=== PATIENT | male | born 1950 | race Caucasian/White ===

== ENCOUNTER → 2016-06-23 | Outpatient (CLI) | payer BC ==
[~2016-06-23] MED LIST: ATV1 PO; CYCLOBENZAPRINE TD; GLC/500 PO; GLC500 PO; LIDO1PAD2 EX; LISI-725 PO; LRS20 PO; MELO7.5T5 PO; NRN600 PO; OXYC1TAB3 PO; OXYM1TAB42 PO; Opana ER PO; lidocaine patches
[2016-06-23 11:34] LABS: ESTIMATED AVERAGE GLUCOSE 140 mg/dl; HA1C FLAG Normal (Normal)
[2016-06-23 11:42] LABS: ALT/SGPT 28 U/L (12-78); BLOOD UREA NITROGEN 8 mg/dl (7-18); BUN/CREATININE RATIO 9.1 (10-20); CALCIUM 8.3 mg/dl (8.5-10.1); CARBON DIOXIDE 32 mmol/L (21-32); CHLORIDE 105 mmol/L (98-107); GLUCOSE 116 mg/dl (70-99); POTASSIUM 4.4 mmol/L (3.5-5.1); SODIUM 140 mmol/L (136-145)
[2016-06-23 11:45] LABS: CHOLESTEROL 145 mg/dl (0-200); CHOLESTEROL/HDL RATIO 4.8; HDL CHOLESTEROL 30 mg/dl; LDL CHOLESTEROL CALCULATED 93 mg/dl; TRIGLYCERIDES 108 mg/dl (0-150); VERY LOW DENSITY LIPOPROT CALC 22 mg/dl
== END | disposition home or self-care (01) ==
LOC: C.LABBC 07:46
PROVIDERS: ATTEND Family Medicine
DX: I10 Essential (primary) hypertension (principal); E11.9 Type 2 diabetes mellitus without complications

== ENCOUNTER → 2016-09-27 | Outpatient (CLI) | payer BC | END | disposition home or self-care (01) | LOC: C.LABBC 07:13 | PROVIDERS: ATTEND Family Medicine | DX: Z80.42 Family history of malignant neoplasm of prostate (principal) ==

== ENCOUNTER → 2016-11-01 | Outpatient (CLI) | payer BC ==
--- NOTE | 2016-11-01 07:59 | DIAGNOSTIC IMAGING REPORT ---
ABDOMEN FOR HERNIA HISTORY: 66 years-old Male R10.9 Right sided abdominal pain COMPARISON: None available TECHNIQUE: Multiple real-time sonographic images of the abdominal wall right angle region were obtained assessing grayscale appearance. FINDINGS/IMPRESSION: Within the area of concern within the right inguinal region there is a fat filled reducible inguinal hernia noted which does not contain loops of bowel at this time. The above report was generated using voice recognition software. It may contain grammatical, syntax or spelling errors. Electronically signed by: Hai Pickett M.D. 11/01/2016 7:58 AM Dictated Date/Time: 11/01/2016 7:56 AM
== END | disposition home or self-care (01) ==
LOC: C.ULTR 06:53
PROVIDERS: ATTEND Family Medicine
DX: R10.9 Unspecified abdominal pain (principal)

== ENCOUNTER 2016-11-24 06:50 | Day surgery (SDC) | payer BC ==
[2016-11-17 09:29] VITALS: BMI 25.0
--- NOTE | 2016-11-17 10:11 | PAT Medication Instructions ---
Service Date Nov 17, 2016. Current Home Medication List Baclofen (Baclofen *), 20 MG PO TID Gabapentin (Neurontin *), 600 MG PO QID Lidocaine (Lidocaine), 1 PATCH EX Q12 PRN for Pain Lisinopril (Zestril), 20 MG PO QPM Lorazepam (Ativan *), 1 MG PO TID PRN Meloxicam (Mobic), 15 MG PO DAILY PRN for Pain Metformin Hcl (Glucophage), 500 MG PO BID Oxycodone Ir (Roxicodone Ir), 1-2 TABLETS PO Q4HR PRN Oxymorphone Hcl (Oxymorphone Hydrochloride), 1 TAB PO BID PRN for Pain Medication Instructions For Your Scheduled Surgery Lidocaine (Lidocaine), 1 PATCH EX Q12 PRN for Pain (avoid placement over surgery site) - Hold the following medications 24 hours prior to surgery: Lisinopril (Zestril), 20 MG PO QPM - Hold the following medications 48 hours prior to surgery: Metformin Hcl (Glucophage), 500 MG PO BID - Hold the following medications the morning of surgery: Baclofen (Baclofen *), 20 MG PO TID Meloxicam (Mobic), 15 MG PO DAILY PRN for Pain - Take the following medications the morning of surgery with a sip of water: Oxycodone Ir (Roxicodone Ir), 1-2 TABLETS PO Q4HR PRN (okay to take up to 4 hours prior to surgery if needed) Oxymorphone Hcl (Oxymorphone Hydrochloride), 1 TAB PO BID PRN for Pain(okay to take up to 4 hours prior to surgery if needed) Lorazepam (Ativan *), 1 MG PO TID PRN (if needed) Gabapentin (Neurontin *), 600 MG PO QID - Take the following medications as scheduled the night before surgery: Lorazepam (Ativan *), 1 MG PO TID PRN (if needed) Gabapentin (Neurontin *), 600 MG PO QID Baclofen (Baclofen *), 20 MG PO TID If you have any questions please call us at [phone] or [phone] or [phone]
[2016-11-17 10:44] LABS: BASO % 0.2 %; BASO ABS # 0.01 K/uL (0-0.2); COMPLETE YES; EOS % 1.6 %; HEMATOCRIT 41.4 % (42-52); IG% 0.9 %; LYMPH % 21.4 %; LYMPH ABS # 1.17 K/uL (1.2-3.4); MEAN CELL VOLUME 88.8 fL (80-100); MEAN CORPUSCULAR HEMOGLOBIN 30.5 pg (25-34); MEAN CORPUSCULAR HGB CONC 34.3 g/dl (32-36); MEAN PLATELET VOLUME 10.1 fL (7.4-10.4); MONO % 9.2 %; NEUT % 66.7 %; PLATELET COUNT 153 K/uL (130-400); RED BLOOD COUNT 4.66 M/uL (4.7-6.1); WHITE BLOOD COUNT 5.46 K/uL (4.8-10.8)
[2016-11-17 12:52] LABS: BUN/CREATININE RATIO 6.1 (10-20); CALCIUM 8.8 mg/dl (8.5-10.1); CREATININE 0.88 mg/dl (0.60-1.40)
[~2016-11-24] VITALS: Ht 180.3 cm; Wt 84.2 kg
[~2016-11-24 06:50] MED LIST changes: +CEFAZOLIN 2000 MG/60 ML D5W IV SCH; -CYCLOBENZAPRINE TD; -GLC500 PO; +HEPARIN SOD 5000 UNIT/0.5 ML CARP SQ SCH; +LACTATED RINGER'S 1000ML 1,000 ML IV SCH; -Opana ER PO; -lidocaine patches
[2016-11-24 07:36] VITALS: BP 132/83; PULSE 63; TEMP 36.7; O2SAT 97; Ht 180.3 cm; Wt 84.2 kg
[2016-11-24] MEDS ORDERED: FENTANYL CITRATE INJ 50 MCG/1 ML 2 ML VIAL ONE (07:49)
[2016-11-24] MEDS ORDERED: MIDAZOLAM HCL 1 MG/ML 2ML VIAL ONE ×2 (07:50)
--- NOTE | 2016-11-24 08:13 | History & Physical Bridge Note ---
H&P Re-Evaluation Bridge Note: I have examined the patient, reviewed the History & Physical and in the interval since the performance of the History & Physical I have noted the following changes of clinical significance: No changes noted
[2016-11-24] MEDS ORDERED: BUPIVACAINE/EPINEPHRINE 0.5% MPF 1:200,000 30 ML VIAL ONE (08:22)
[2016-11-24] MEDS ORDERED: ATROPINE SULFATE 0.1 MG/ML 5ML SYR IV PRN (08:30)
[2016-11-24] MEDS ORDERED: HYDROmorphone INJ 2 MG/ML SYR/VIAL IV PRN (08:30)
[2016-11-24] MEDS ORDERED: ONDANSETRON INJ 2 MG/ML 2 ML VIAL IV PRN ×2 (08:30→09:45)
[2016-11-24] MEDS ORDERED: PHENYLEPHRINE 100MCG/ML 5ML SYR IV PRN (08:30)
[2016-11-24] MEDS ORDERED: EpHEDrine SULFATE INJ 50 MG/ML AMP IV PRN (08:30)
[2016-11-24] MEDS ORDERED: NEOSTIGMINE METHYLSULFATE 5 MG/5 ML SYR ONE (09:29)
[2016-11-24] MEDS ORDERED: GLYCOPYRROLATE INJ 0.2 MG/ML VIAL ONE (09:29)
[2016-11-24] MEDS ORDERED: ONDANSETRON INJ 2 MG/ML 2 ML VIAL ONE (09:29)
[2016-11-24] MEDS ORDERED: EpHEDrine SULFATE 50MG/5ML SYR ONE (09:29)
[2016-11-24] MEDS ORDERED: PROPOFOL IV EMULSION 10 MG/ML 20 ML VIAL IV ONE (09:30)
[2016-11-24] MEDS ORDERED: LACTATED RINGER'S 1000ML 1,000 ML IV SCH (09:36)
--- NOTE | 2016-11-24 09:38 | Discharge Instructions ---
Discharge Instructions Date of Service Nov 24, 2016. Visit Reason for Visit: Right Groin Hernia Discharge Discharge Diagnosis / Problem: repair right inguinal hernia Discharge Goals Goal(s): Decrease discomfort Activity Recommendations Activity Limitations: as noted below Lifting Limitations: no more than 10 pounds Shower/Bathe: no limitations (ok to shower) Driving or Machine Use: resume 3 days after discharge Anesthesia . Post Anesthesia Instructions: If you have had General Anesthesia or IV Sedation: * Do not drive today. * Resume driving when surgeon permits. * Do not make important decisions or sign legal documents today. * Call surgeon for: 1. Temperature elevations greater than 101 degrees F. 2. Uncontrollable pain. 3. Excessive bleeding. 4. Persistent nausea and vomiting. 5. Medication intolerance (nausea, vomiting or rash). * For nausea and vomiting use only clear liquids such as: tea, soda, bouillon until nausea subsides, then gradually increase diet as tolerated. * If you have any concerns or questions, call your surgeon's office. If physician is unavailable and it is an emergency, call 911 or go to the nearest emergency room. . Instructions / Follow-Up Instructions / Follow-Up Dr. Boswell in 1-2 weeks as planned, call [phone] for any questions Diet Recommendations Recommended Home Diet: no limitations Procedures Procedures Performed: Open Right Inguinal Hernia Repair with Mesh Pending Studies Studies pending at discharge: no Medical Emergencies . Who to Call and When: Medical Emergencies: If at any time you feel your situation is an emergency, please call 911 immediately. . Non-Emergent Contact Non-Emergency issues call your: Surgeon Call Non-Emergent contact if: you have a fever, temperature is above 101.5, your pain is not controlled, wound has increased redness, you have any medication questions . . "Provider Documentation" section prepared by Ronan Hermosillo. .
[2016-11-24] MEDS ORDERED: OXYCODONE/ACETAMINOPHEN 5-325 TAB PO PRN (09:45)
[2016-11-24] MEDS ORDERED: MoRPHine SULFATE 4 MG/ML 1 ML CARP\\VIAL IV PRN (09:45)
--- NOTE | 2016-11-24 09:51 | [facility] Operative Report ---
Operative Report Operative Date Nov 24, 2016. Pre-Operative Diagnosis Right Inguinal Hernia Post-Operative Diagnosis direct inguinal hernia Procedure(s) Performed Open Right Inguinal Hernia Repair with Mesh Surgeon Dr Boswell Hand Glass Cutter Surgeon(s) Ronan Hermosillo PA-C Estimated Blood Loss 5ML Findings large direct inguinal hernia Specimens NONE Anesthesia general Complication(s) None Disposition Recovery Room / PACU Description of Procedure After informed consent was obtained the patient was taken the operating suite placed in supine position. After successful placement of a laryngealmask airway the right lower groin was shaved and sterilely prepped and draped in usual fashion. An inguinal incision was made with 10 blade scalpel and carried down through the soft tissue using electrocautery. The external oblique aponeurosis was identified and skeletonized. A fresh blade was used to make an incision in it and Metzenbaum scissors to extend this through the external ring as well as for several centimeters proximally. Once in the inguinal canal we used primarily blunt dissection to delineate the cord and cord structures. We gently grabbed the cord with a Moses clamp and a blunt finger was used to undermine the cord structures and gently lift them off the pubic bone. A Tiffanie drain was placed around them. As soonas we did this we noticed a moderate size direct inguinal hernia. We did explore the cord itself and there was no evidence of any indirect hernia. The direct hernia was easily reduced. We used a piece of polypropylene keyhole mesh as an onlay. We secured it distally to Justice's ligament laterally along the shelving portion of Poupart ligament and medially along the midline musculature. The "arms" of the mesh were wrapped around behind the cord and cord structures and secured underlying muscle. We used 0 Ethibond for all the suturing. The mesh laid nice and tension free. It was flat and did not appear to impinge on the cord structures. We thoroughly irrigated the wound. I used Marcaine to inject around the edges of the mesh for postoperative analgesia. There was adequate hemostasis at the end of the procedure. We closed the external oblique aponeurosis with 2-0 Vicryl running fashion. Soft tissue was irrigated and closed using 3-0 Vicryl and 4-0 Monocryl for the skin. Some additional Marcaine was injected around the incision itself and glue used as a dressing. The patient was awaken extubated and transferred recovery in stable condition I attest to the content of the Intraoperative Record and any orders documented therein. Any exceptions are noted below.
[2016-11-24] MEDS ORDERED: HYDROmorphone INJ 1 MG/ML SYR ONE (10:10)
[2016-11-24 10:45] VITALS: BP 151/83; PULSE 69; TEMP 36.5; O2SAT 98
[2016-11-24 11:25] VITALS: BP 131/82; PULSE 79; O2SAT 99
[2016-11-24] MEDS ORDERED: OXYCODONE/ACETAMINOPHEN 5-325 TAB ONE (11:40)
--- NOTE | 2016-11-24 11:43 | Anesthesiology Progress Note ---
Anesthesia Post Op Note Date & Time Nov 24, 2016 at 11:42 Vital Signs Pain Intensity: 3 Vital Signs Past 12 Hours Date Time Temp Pulse Resp B/P (MAP) Pulse Ox O2 Delivery O2 Flow Rate FiO2 11/24/16 11:25 79 16 131/82 99 Oxymask 11/24/16 10:45 36.5 69 16 151/83 98 Oxymask 11/24/16 10:38 68 14 98 11/24/16 10:38 68 14 11/24/16 10:36 149/85 11/24/16 10:33 67 12 99 11/24/16 10:33 67 12 11/24/16 10:31 156/86 11/24/16 10:28 69 19 11/24/16 10:28 69 19 99 11/24/16 10:27 36.2 11/24/16 10:26 157/90 11/24/16 10:23 69 17 11/24/16 10:23 69 17 99 11/24/16 10:21 156/89 11/24/16 10:18 69 13 11/24/16 10:18 66 13 100 11/24/16 10:17 69 15 11/24/16 10:17 69 15 99 11/24/16 10:16 153/88 11/24/16 10:12 69 16 98 11/24/16 10:12 69 16 11/24/16 10:11 158/85 11/24/16 10:07 69 16 11/24/16 10:07 69 16 100 11/24/16 10:06 163/92 11/24/16 10:02 70 14 11/24/16 10:02 69 14 100 11/24/16 10:01 161/88 11/24/16 09:57 72 16 100 11/24/16 09:57 71 16 11/24/16 09:56 166/93 11/24/16 09:55 73 21 11/24/16 09:55 73 21 100 11/24/16 09:51 168/100 11/24/16 09:50 73 15 100 11/24/16 09:50 74 15 11/24/16 09:46 173/91 11/24/16 09:45 78 19 100 11/24/16 09:45 78 19 11/24/16 09:45 36.0 79 12 173/91 100 Oxymask 10 11/24/16 07:36 36.7 63 18 132/83 (99) 97 Room Air Notes Mental Status: alert / awake / arousable, participated in evaluation Pt Amnestic to Procedure: Yes Nausea / Vomiting: adequately controlled Pain: adequately controlled Airway Patency, RR, SpO2: stable & adequate BP & HR: stable & adequate Hydration State: stable & adequate Anesthetic Complications: no major complications apparent
[2016-11-24 11:45] VITALS: BP 167/80; PULSE 77; TEMP 36.4; O2SAT 99
== END 2016-11-24 12:10 | disposition home or self-care (01) ==
LOC: C.ACU 06:50
PROVIDERS: ATTEND Surgery
DX: K40.90 Unilateral inguinal hernia, without obstruction or gangrene, not specified as recurrent (principal); F41.9 Anxiety disorder, unspecified; Z93.3 Colostomy status; I10 Essential (primary) hypertension; C18.9 Malignant neoplasm of colon, unspecified; M19.90 Unspecified osteoarthritis, unspecified site; Z72.0 Tobacco use; E11.9 Type 2 diabetes mellitus without complications; Z81.8 Family history of other mental and behavioral disorders; Z83.3 Family history of diabetes mellitus; Z82.49 Family history of ischemic heart disease and other diseases of the circulatory system; Z87.891 Personal history of nicotine dependence; Z79.899 Other long term (current) drug therapy; Z79.84 Long term (current) use of oral hypoglycemic drugs

== ENCOUNTER → 2017-02-01 | Outpatient (CLI) | payer BC ==
[~2017-02-01] MED LIST changes: -CEFAZOLIN 2000 MG/60 ML D5W IV SCH; -HEPARIN SOD 5000 UNIT/0.5 ML CARP SQ SCH; -LACTATED RINGER'S 1000ML 1,000 ML IV SCH
[2017-02-01 11:20] LABS: ESTIMATED AVERAGE GLUCOSE 148 mg/dl; HA1C FLAG Normal (Normal)
[2017-02-01 11:49] LABS: ALT/SGPT 25 U/L (12-78); BLOOD UREA NITROGEN 6 mg/dl (7-18); BUN/CREATININE RATIO 6.4 (10-20); CALCIUM 8.5 mg/dl (8.5-10.1); CARBON DIOXIDE 30 mmol/L (21-32); CHLORIDE 103 mmol/L (98-107); CHOLESTEROL 164 mg/dl (0-200); CHOLESTEROL/HDL RATIO 4.3; CREATININE 0.97 mg/dl (0.60-1.40); GLUCOSE 112 mg/dl (70-99); HDL CHOLESTEROL 38 mg/dl; LDL CHOLESTEROL CALCULATED 107 mg/dl; POTASSIUM 4.1 mmol/L (3.5-5.1); SODIUM 138 mmol/L (136-145); TRIGLYCERIDES 93 mg/dl (0-150); VERY LOW DENSITY LIPOPROT CALC 19 mg/dl
== END | disposition home or self-care (01) ==
LOC: C.LABBC 07:57
PROVIDERS: ATTEND Family Medicine
DX: I10 Essential (primary) hypertension (principal); E11.9 Type 2 diabetes mellitus without complications

== ENCOUNTER 2017-04-07 17:19 | Emergency (ER) | payer BC ==
[~2017-04-07] VITALS: Ht 180.3 cm; Wt 82.7 kg
[2017-04-07 17:50] VITALS: Ht 180.3 cm; Wt 82.7 kg
[2017-04-07] MEDS ORDERED: OPTIRAY 320 IV PRN (18:45)
[2017-04-07 19:03] LABS: BASO % 0.4 %; BASO ABS # 0.02 K/uL (0-0.2); EOS % 0.9 %; EOS ABS # 0.04 K/uL (0-0.5); HEMATOCRIT 37.9 % (42-52); HEMOGLOBIN 13.5 g/dL (14.0-18.0); IG# 0.05 K/uL (0.00-0.02); LYMPH % 22.3 %; LYMPH ABS # 1.01 K/uL (1.2-3.4); MEAN CELL VOLUME 87.3 fL (80-100); MEAN CORPUSCULAR HEMOGLOBIN 31.1 pg (25-34); MEAN CORPUSCULAR HGB CONC 35.6 g/dl (32-36); MONO % 7.7 %; MONO ABS # 0.35 K/uL (0.11-0.59); NEUT % 67.6 %; NEUT ABS # 3.06 K/uL (1.4-6.5); PLATELET COUNT 151 K/uL (130-400); RED CELL DISTRIBUTION WIDTH CV 12.5 % (11.5-14.5); RED CELL DISTRIBUTION WIDTH SD 40.2 fL (36.4-46.3); WHITE BLOOD COUNT 4.53 K/uL (4.8-10.8)
[2017-04-07 19:19] LABS: CALCIUM 8.7 mg/dl (8.5-10.1); CREATININE 0.9 mg/dl (0.60-1.40); POTASSIUM 3.9 mmol/L (3.5-5.1)
[2017-04-07 19:22] LABS: TOTAL PROTEIN 7.6 gm/dl (6.4-8.2)
[2017-04-07 21:33] VITALS: BP 154/85; PULSE 60; TEMP 36.8; O2SAT 95
--- NOTE | 2017-04-07 21:38 | DIAGNOSTIC IMAGING REPORT ---
LUMBAR SPINE CT CT DOSE: 379.60 mGy.cm HISTORY: Low back pain. eval for fx TECHNIQUE: Multiaxial CT images of the lumbar spine were performed and reformatted in the sagittal and coronal plane without the use of contrast. A dose lowering technique was utilized adhering to the principles of ALARA. COMPARISON: None. FINDINGS: No fracture or subluxation within the lumbar spine. The L4-S1 vertebral bodies are fused. Prior anterior fusion at L5-S1. There is a single anterior screw at L4. L4 pedicle screws have been removed. The heads of the L2 pedicle screws are removed. There residual pedicle screws at L3 which appear intact. Moderate disc space narrowing at L3-L4. Posterior decompression from L4 through S1. There are bilateral sacroiliac screws. A 1.9 cm fat-containing lesion within the L4 vertebral body. This may represent an intraosseous lipoma. Evaluation the central canal is limited due to the CT technique. However, there is no significant central canal narrowing. The paraspinal soft tissues are unremarkable. IMPRESSION: 1. No fracture or subluxation within the lumbar spine. 2. Postoperative changes as described above. Electronically signed by: Toan Springer M.D. 04/07/2017 9:37 PM Dictated Date/Time: 04/07/2017 9:31 PM
--- NOTE | 2017-04-07 21:47 | DIAGNOSTIC IMAGING REPORT ---
ABDOMEN AND PELVIS CT WITH IV AND ORAL CONTRAST CT DOSE: HISTORY: Right lower quadrant abdominal pain. TECHNIQUE: Multiaxial CT images of the abdomen and pelvis were performed following the use of intravenous and oral contrast. A dose lowering technique was utilized adhering to the principles of ALARA. COMPARISON STUDY: Chest CT 10/10/2012. FINDINGS: Stable 6 mm nodule within the right lower lobe and a stable 8 mm nodule within the left lower lobe. Given the long-term stability these are likely benign. No pneumoperitoneum. No pneumatosis. No fractures within the visualized osseous structures. Postoperative changes again noted within the lumbar spine. There is a right inguinal incision likely representing prior right inguinal hernia repair. No evidence for recurrent inguinal hernia. No hepatic or splenic masses. The gallbladder, pancreas, and adrenal glands are unremarkable. Mild calcified plaque within the normal caliber thoracic aorta. The kidneys enhance normally. No hydronephrosis. No retroperitoneal lymphadenopathy. The bladder is unremarkable. Left lower quadrant colostomy with a small fat-containing stone hernia. There are few colonic diverticula. Moderate stool within the colon. No bowel wall thickening or obstruction. Normal appendix. The distal sigmoid colon and rectum have been resected. IMPRESSION: 1. No bowel wall thickening or obstruction. 2. Normal appendix. 3. No evidence for inguinal hernia. 4. Postoperative changes as described above. 5. Stable pulmonary nodules. Therefore, these are likely benign. Electronically signed by: Toan Springer M.D. 04/07/2017 9:46 PM Dictated Date/Time: 04/07/2017 9:37 PM
--- NOTE | 2017-04-07 23:27 | EMERGENCY ROOM VISIT NOTE ---
History Report prepared by Angie: Jael Márquez Under the Supervision of: Dr. Jere Sanders M.D. First contact with patient: 18:24 Chief Complaint: ABDOMINAL PAIN Stated Complaint: POSSIBLE TORE OPEN HERNIA Nursing Triage Summary: Patient had a hernia repair last year and patient is concerned it "tore open" because he has had increased pain since this AM. History of Present Illness The patient is a 67 year old male who presents to the Emergency Room with complaints of persistent abdominal pain starting this morning. He describes the pain as sore. It started suddenly after he got out of his truck and entered his house. He has noticed there might be a bulge in his abdomen. He had hernia surgery around 5 months ago. He is concerned that the hernia repair has torn open. He had not had any pain since his surgery. He has not done any lifting as he is not allowed due to his back problems. He denies any fever, vomiting, diarrhea, or urinary symptoms. He still has his appendix. He has a history of hypertension. He has a colostomy. He had his entire colon removed 12 years ago after he had rectal cancer. Source of History: patient Onset: this morning Position: abdomen Symptom Intensity: moderate Quality: other (sore) Timing: other (persistent) Associated Symptoms: No fevers, No vomiting, No diarrhea, No urinary symptoms Review of Systems See HPI for pertinent positives & negatives. A total of 10 systems reviewed and were otherwise negative. Past Medical & Surgical Medical Problems: (1) Anxiety disorder (2) Colostomy in place (3) Diabetes mellitus (4) Gastroesophageal reflux (5) Hypertension (6) Osteoarthritis (7) Rectal cancer Surgical Problems: (1) H/O resection of rectum (2) History of lumbar fusion (3) S/P cervical spinal fusion (4) S/P tonsillectomy and adenoidectomy Family History Cancer Diabetes mellitus Heart disease Social History Smoking Status: Never Smoker Alcohol Use: none Marital Status: Occupation Status: retired Current/Historical Medications Scheduled Baclofen (Baclofen *), 20 MG PO TID Gabapentin (Neurontin *), 600 MG PO QID Lisinopril (Zestril), 20 MG PO QPM Lorazepam (Ativan *), 1 MG PO TID PRN Metformin Hcl (Glucophage), 500 MG PO BID Oxycodone Ir (Roxicodone Ir), 1-2 TABLETS PO Q4HR PRN Scheduled PRN Lidocaine (Lidocaine), 1 PATCH EX Q12 PRN for Pain Meloxicam (Mobic), 15 MG PO DAILY PRN for Pain Oxymorphone Hcl (Oxymorphone Hydrochloride), 1 TAB PO BID PRN for Pain Allergies Coded Allergies: No Known Allergies (Verified , 04/07/17) Physical Exam Vital Signs Date Time Temp Pulse Resp B/P (MAP) Pulse Ox O2 Delivery O2 Flow Rate FiO2 04/07/17 21:33 36.8 60 16 154/85 95 Room Air 04/07/17 17:50 37.0 79 16 148/84 95 Room Air Physical Exam Constitutional: Vital signs reviewed. Eyes: Pupils are equal round reactive to light. Conjunctiva are noninjected. ENT: Pharynx is clear without erythema or exudate. Mucous membranes are moist. Neck supple without meningeal signs. Respiratory: Clear to auscultation bilaterally. Breath sounds are equal bilaterally. Cardiovascular: Regular rate and rhythm. No rubs or gallops. GI: Soft, nondistended. Right groin and lower quadrant tenderness. No guarding. Colostomy in left abdomen. Bowel sounds are present. Musculoskeletal: No peripheral edema. No lower extremity tenderness. Integumentary: No cyanosis. Neurological: The patient is awake and alert. No focal deficits. Psychiatric: Normal affect. Medical Decision & Procedures ER Provider Diagnostic Interpretation: Radiology results as stated below per my review and the radiologist's interpretation: LUMBAR SPINE CT CT DOSE: 379.60 mGy.cm HISTORY: Low back pain. eval for fx TECHNIQUE: Multiaxial CT images of the lumbar spine were performed and reformatted in the sagittal and coronal plane without the use of contrast. A dose lowering technique was utilized adhering to the principles of ALARA. COMPARISON: None. FINDINGS: No fracture or subluxation within the lumbar spine. The L4-S1 vertebral bodies are fused. Prior anterior fusion at L5-S1. There is a single anterior screw at L4. L4 pedicle screws have been removed. The heads of the L2 pedicle screws are removed. There residual pedicle screws at L3 which appear intact. Moderate disc space narrowing at L3-L4. Posterior decompression from L4 through S1. There are bilateral sacroiliac screws. A 1.9 cm fat-containing lesion within the L4 vertebral body. This may represent an intraosseous lipoma. Evaluation the central canal is limited due to the CT technique. However, there is no significant central canal narrowing. The paraspinal soft tissues are unremarkable. IMPRESSION: 1. No fracture or subluxation within the lumbar spine. 2. Postoperative changes as described above. Electronically signed by: Toan Springer M.D. 04/07/2017 9:37 PM Dictated Date/Time: 04/07/2017 9:31 PM ABDOMEN AND PELVIS CT WITH IV AND ORAL CONTRAST CT DOSE: HISTORY: Right lower quadrant abdominal pain. TECHNIQUE: Multiaxial CT images of the abdomen and pelvis were performed following the use of intravenous and oral contrast. A dose lowering technique was utilized adhering to the principles of ALARA. COMPARISON STUDY: Chest CT 10/10/2012. FINDINGS: Stable 6 mm nodule within the right lower lobe and a stable 8 mm nodule within the left lower lobe. Given the long-term stability these are likely benign. No pneumoperitoneum. No pneumatosis. No fractures within the visualized osseous structures. Postoperative changes again noted within the lumbar spine. There is a right inguinal incision likely representing prior right inguinal hernia repair. No evidence for recurrent inguinal hernia. No hepatic or splenic masses. The gallbladder, pancreas, and adrenal glands are unremarkable. Mild calcified plaque within the normal caliber thoracic aorta. The kidneys enhance normally. No hydronephrosis. No retroperitoneal lymphadenopathy. The bladder is unremarkable. Left lower quadrant colostomy with a small fat-containing stone hernia. There are few colonic diverticula. Moderate stool within the colon. No bowel wall thickening or obstruction. Normal appendix. The distal sigmoid colon and rectum have been resected. IMPRESSION: 1. No bowel wall thickening or obstruction. 2. Normal appendix. 3. No evidence for inguinal hernia. 4. Postoperative changes as described above. 5. Stable pulmonary nodules. Therefore, these are likely benign. Electronically signed by: Toan Springer M.D. 04/07/2017 9:46 PM Dictated Date/Time: 04/07/2017 9:37 PM Laboratory Results 04/07/17 18:45 Red Blood Count 4.34, Mean Corpuscular Volume 87.3, Mean Corpuscular Hemoglobin 31.1, Mean Corpuscular Hemoglobin Concent 35.6, Mean Platelet Volume 10.0, Neutrophils (%) (Auto) 67.6, Lymphocytes (%) (Auto) 22.3, Monocytes (%) (Auto) 7.7, Eosinophils (%) (Auto) 0.9, Basophils (%) (Auto) 0.4, Neutrophils # (Auto) 3.06, Lymphocytes # (Auto) 1.01, Monocytes # (Auto) 0.35, Eosinophils # (Auto) 0.04, Basophils # (Auto) 0.02 04/07/17 18:45 Test 04/07/17 14:19 04/07/17 18:45 Urine Color YELLOW Urine Appearance CLEAR (CLEAR) Urine pH 6.0 (4.5-7.5) Urine Specific [place] 1.008 (1.000-1.030) Urine Protein NEG (NEG) Urine Glucose (UA) NEG (NEG) Urine Ketones NEG (NEG) Urine Occult Blood NEG (NEG) Urine Nitrite NEG (NEG) Urine Bilirubin NEG (NEG) Urine Urobilinogen NEG (NEG) Urine Leukocyte Esterase NEG (NEG) White Blood Count 4.53 K/uL (4.8-10.8) Red Blood Count 4.34 M/uL (4.7-6.1) Hemoglobin 13.5 g/dL (14.0-18.0) Hematocrit 37.9 % (42-52) Mean Corpuscular Volume 87.3 fL (80-100) Mean Corpuscular Hemoglobin 31.1 pg (25-34) Mean Corpuscular Hemoglobin Concent 35.6 g/dl (32-36) Platelet Count 151 K/uL (130-400) Mean Platelet Volume 10.0 fL (7.4-10.4) Neutrophils (%) (Auto) 67.6 % Lymphocytes (%) (Auto) 22.3 % Monocytes (%) (Auto) 7.7 % Eosinophils (%) (Auto) 0.9 % Basophils (%) (Auto) 0.4 % Neutrophils # (Auto) 3.06 K/uL (1.4-6.5) Lymphocytes # (Auto) 1.01 K/uL (1.2-3.4) Monocytes # (Auto) 0.35 K/uL (0.11-0.59) Eosinophils # (Auto) 0.04 K/uL (0-0.5) Basophils # (Auto) 0.02 K/uL (0-0.2) RDW Standard Deviation 40.2 fL (36.4-46.3) RDW Coefficient of Variation 12.5 % (11.5-14.5) Immature Granulocyte % (Auto) 1.1 % Immature Granulocyte # (Auto) 0.05 K/uL (0.00-0.02) Anion Gap 5.0 mmol/L (3-11) Est Creatinine Clear Calc Drug Dose 83.6 ml/min Estimated GFR () 101.4 Estimated GFR (Non- 87.5 BUN/Creatinine Ratio 4.9 (10-20) Calcium Level 8.7 mg/dl (8.5-10.1) Total Bilirubin 0.5 mg/dl (0.2-1) Direct Bilirubin 0.1 mg/dl (0-0.2) Aspartate Amino Transf (AST/SGOT) 17 U/L (15-37) Alanine Aminotransferase (ALT/SGPT) 23 U/L (12-78) Alkaline Phosphatase 66 U/L (45-117) Total Protein 7.6 gm/dl (6.4-8.2) Albumin 4.0 gm/dl (3.4-5.0) Lipase 100 U/L (73-393) Laboratory results as reviewed by me. ED Course 1825: The patient was evaluated in room B4B. A complete history and physical exam was performed. 2020: I reevaluated the patient. I discussed the results of his blood tests with him and let him know to talk with his doctor about his low WBC count and hyponatremia. 2158: Upon reevaluation, the patient was resting comfortably. I discussed tonight's findings with him. He verbalized agreement of the treatment plan. He was discharged home. Medical Decision This is a 67-year-old male who presents with right lower quadrant abdominal pain. Differential diagnosis includes hernia, appendicitis, mass, enteritis, kidney stone, UTI. I did perform a limited focused review of portions of the patient's old chart on the electronic medical record. The patient underwent right inguinal hernia repair by Dr. Boswell in November of last year. I did evaluate the patient as noted above. The patient is presenting with pain and tenderness in the right pelvic region. IV access was established. I did order and personally review the patient's urinalysis as described above. I did order and review the patient's blood work as noted in the electronic medical record. He has chronic leukopenia. He also has hyponatremia. I did order a CT of the abdomen and pelvis and lumbar spine. I did review the images myself as well as the radiology report as described above. No evidence of acute process was found. I did discuss the test results with the patient and his . He will follow closely with his doctor for further evaluation of the abnormal findings as well as further investigation of his pain. He was discharged in good condition. Medication Reconcilliation Current Medication List: was personally reviewed by me Blood Pressure Screening Patient's blood pressure: Elevated blood pressure Blood pressure disposition: Referred to PCP Impression Primary Impression: RLQ abdominal pain Additional Impressions: Chronic back pain Hyponatremia Leukopenia Scribe Attestation The scribe's documentation has been prepared under my direct and personally reviewed by me in its entirety. I confirm that the note above accurately reflects all work, treatment, procedures, and medical decision making performed by me. Departure Information Dispostion Home / Self-Care Referrals Andreea Sevilla MD Forms Call Back Authorization, HOME CARE DOCUMENTATION FORM, IMPORTANT VISIT INFORMATION Patient Instructions ED Abdominal Pain Unkn Cause Male, Hyponatremia Dc, My [facility] Additional Instructions You have been examined and treated today on an emergency basis only. This is not a substitute for, or an effort to provide, complete comprehensive medical care. It is impossible to recognize and treat all injuries or illnesses in a single emergency department visit. It is therefore important that you follow up closely with your physician. Call as soon as possible for an appointment. Talk to your doctor about your blood test results. Return for worsening symptoms or if you develop fever, vomiting, blood in your stool or any other concerning symptoms. Problem Qualifiers Additional Impressions: Chronic back pain Back pain location: low back pain Back pain laterality: unspecified Sciatica presence: unspecified whether sciatica present Qualified Codes: M54.5 - Low back pain; G89.29 - Other chronic pain Leukopenia Leukopenia type: unspecified Qualified Codes: D72.819 - Decreased white blood cell count, unspecified
== END 2017-04-07 22:11 | disposition home or self-care (01) ==
LOC: C.EDB 17:20
DX: R10.31 Right lower quadrant pain (principal); E87.1 Hypo-osmolality and hyponatremia; D72.819 Decreased white blood cell count, unspecified; M54.5 Low back pain; G89.29 Other chronic pain; Z93.3 Colostomy status; I10 Essential (primary) hypertension; F41.9 Anxiety disorder, unspecified; E11.9 Type 2 diabetes mellitus without complications; Z79.899 Other long term (current) drug therapy

== ENCOUNTER → 2017-10-31 | Outpatient (CLI) | payer BC ==
[~2017-10-31] MED LIST changes: +OXYC-90 PO; -OXYC1TAB3 PO
[2017-10-31 11:02] LABS: BASO % 0.3 %; BASO ABS # 0.02 K/uL (0-0.2); EOS ABS # 0.06 K/uL (0-0.5); HEMATOCRIT 42.4 % (42-52); HEMOGLOBIN 14.8 g/dL (14.0-18.0); IG# 0.03 K/uL (0.00-0.02); LYMPH % 22.9 %; MEAN CELL VOLUME 86.9 fL (80-100); MEAN CORPUSCULAR HEMOGLOBIN 30.3 pg (25-34); MEAN CORPUSCULAR HGB CONC 34.9 g/dl (32-36); MEAN PLATELET VOLUME 10.6 fL (7.4-10.4); MONO ABS # 0.55 K/uL (0.11-0.59); NEUT % 66.3 %; NEUT ABS # 4.05 K/uL (1.4-6.5); PLATELET COUNT 176 K/uL (130-400); RED CELL DISTRIBUTION WIDTH CV 12.5 % (11.5-14.5); RED CELL DISTRIBUTION WIDTH SD 39.7 fL (36.4-46.3); WHITE BLOOD COUNT 6.11 K/uL (4.8-10.8)
[2017-10-31 11:05] LABS: HEMOGLOBIN A1C 6.6 % (4.5-5.6)
[2017-10-31 11:13] LABS: ALKALINE PHOSPHATASE 77 U/L (45-117); ALT/SGPT 27 U/L (12-78); AST/SGOT 16 U/L (15-37); BLOOD UREA NITROGEN 7 mg/dl (7-18); CALCIUM 8.8 mg/dl (8.5-10.1); CARBON DIOXIDE 29 mmol/L (21-32); CREATININE 1.12 mg/dl (0.60-1.40); GLUCOSE 135 mg/dl (70-99); POTASSIUM 3.8 mmol/L (3.5-5.1); SODIUM 135 mmol/L (136-145); TOTAL PROTEIN 7.9 gm/dl (6.4-8.2)
== END | disposition home or self-care (01) ==
LOC: C.LABBC 08:49
PROVIDERS: ATTEND Orthopaedic Surgery
DX: Z01.812 Encounter for preprocedural laboratory examination (principal); M51.36 Other intervertebral disc degeneration, lumbar region; M47.896 Other spondylosis, lumbar region; I10 Essential (primary) hypertension; E11.9 Type 2 diabetes mellitus without complications

== ENCOUNTER 2020-11-03 17:59 | Inpatient (IN) ==
--- NOTE | 2020-11-03 17:58 | Emergency Department Note ---
Impression & Plan ST elevation (STEMI) myocardial infarction ED Provider Note NAME: RED VILLARREAL AGE: 70 SEX: M : 1950 ARRIVES VIA: Ambulance INFORMANT: Patient, ED PROVIDER(S): Ryan Rg MD Chief Complaint: Decreased responsiveness HPI: Patient reportedly had an episode of decreased responsiveness and when EMS arrived the patient was awake and alert. The patient did reportedly decompensate in route for the patient was not very with it and did have a lower blood pressure. EKG in route did show concern for possible inferior STEMI with high lateral depressions. Patient denies any active chest pains but he is hypotensive. No fevers or chills. The patient was pale and diaphoretic. The patient's BSG was greater than 200. 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 The patient does use smokeless tobacco. Patient has no known history of CAD. Patient denies any prior history of DVT or PE. Patient did receive a fluid bolus in route along with full dose aspirin. ROS: See HPI for pertinent positives and negatives. A total of 10 systems were rev iewed and otherwise negative. Past medical history: See below Surgical history: See below Social history: See below Physical Exam: GENERAL: Diaphoretic, pale in appearance, nasal cannula in place. Pads are on the chest. EYE EXAM: Normal conjunctiva. PERRL, no anisocoria and EOM's grossly intact w/o pain. NECK: Supple, no nuchal rigidity, no adenopathy, non-tender. No signs of meningismus. LUNGS: Clear to auscultation. Normal chest wall mechanics. HEART: NSR, no MRG. ABDOMEN: Abdomen soft, left lower quadrant ostomy in place, normo-active bowel sounds, no masses, no rebound or guarding. BACK: No CVA TTP. SKIN: No rashes and no bruising. UPPER EXTREMITIES: Upper extremities are grossly normal. LOWER EXTREMITIES: Grossly normal, no edema. Negative Homans' sign bilaterally. NEURO EXAM: A&O x3, cranial nerves II-XII grossly intact, normal speech, moves all 4 extremities on command w/o issue. Differential diagnoses: Cardiac ischemia, aortic dissection, pulmonary embolism, pneumothorax, pneumonia, pericarditis, myocarditis, esophageal rupture, GERD, cholecystitis, pancreatitis, musculoskeletal, as well as other pathologies. Course: Patient was seen and evaluated the bedside. Full history physical exam was performed. EKG interpreted by me Sinus tachycardia, rate of 108, inferior STEMI noted with reciprocal changes in the high lateral leads with depressions. Imaging Studies: See Below Cardiac monitoring: An order was placed for continuous cardiac monitoring. The monitor shows a rate of 65 with sinus rhythm. MDM: Patient did present with concern for decreased responsiveness hypotension and possible STEMI. Code heart alert was initiated. The patient already did receive full dose aspirin. Patient was ordered Plavix load. Patient was ordered a fluid bolus. Covid swab ordered along with blood work and chest x- ray. Patient was taken to [facility] for definitive treatment. The patient was hypotensive but had only received IV fluid at the time the patient was taken upstairs. The patient was awake alert and following commands. I did speak with the on-call hospitalist Dr. Varela and the patient was planned to be admitted to the intensive care unit post procedure. Patient's blood work did show white count of 11 with a hemoglobin of 11.3. Patient does have hyponatremia with creatinine of 1.7. The patient's troponin was 10. Critical Care: I have personally spent 37 minutes of critical care time in direct management of this patient. This includes bedside care, interpretation of diagnostic studies, and testing, discussion with consultants, patient, and family members, and other require inpatient management activities. This 37 minutes is in excess of all separately billable procedures. Past Med/Surg History Medical History (Updated 11/04/20 @ 00:05 by Ryan Rg MD) Anxiety disorder BPH with obstruction/lower urinary tract symptoms Chronic back pain DM2 (diabetes mellitus, type 2) Gastroesophageal reflux Hypertension Hyponatremia Obstructive sleep apnea Osteoarthritis Peripheral neuropathy Surgical History H/O inguinal hernia repair H/O resection of rectum History of rectal surgery Previous back surgery S/P cervical spinal fusion S/P tonsillectomy and adenoidectomy Family History Father Cardiovascular disease Cardiac disorder Prostate cancer Mother Dementia Diabetes Other Hypertension No significant family history Denies family history of Ovarian cancer Myocardial infarction Breast cancer Colorectal cancer Social History Smoking Status: Never smoker Age Started Using Tobacco: 17; Age Quit Using Tobacco: 24; packs per day: 1; Years Smoked: 7; Cigarettes Per Day: 20; Number of Years Since Quit: 46; Second Hand Exposure: No; Hx Alcohol Use: No Hx Substance Use: Yes (patient was taking meds incorrectly on accident) Last Used Substance: Just Prior to Arrival Last Used Substance Other:: family unsure of last doses Preferred Language: Chinese Communication Ability: Effective Visual Impairment: No Limitations Hearing Ability: Normal Money Counter Required: No Beliefs That Will Affect Care: None marital status: Current Living Situation: Spouse current occupational status: retired How many Children do You have: 4 Feels Safe at Home: Yes Childhood Exposure to Second-Hand Smoke: No caffeine: Yes during the past year weight has: remained stable Dental Care, Regularly: No Physical Activity Frequency: Daily Seatbelt Use: always Sunscreen Use: No Assistive Devices: Denture - Upper, Denture - Lower and Glasses Allergies Allergies Allergy/AdvReac Type Severity Reaction Status Date / Time rosuvastatin AdvReac Severe Myalgia Verified 11/03/20 18:12 Home Meds Home Medications Medication Instructions Recorded Confirmed vitamin B12 500 mcg-folic acid 400 1 tab PO DAILY 02/12/20 11/03/20 mcg tablet acetaminophen 500 mg capsule 500 mg PO Q8H PRN cap 10/12/20 11/03/20 tamsulosin 0.4 mg capsule 0.4 mg PO HS cap 10/12/20 11/03/20 lisinopril 40 mg tablet 40 mg PO QAM 11/03/20 11/03/20 Previous Rx's Medication Instructions Recorded naloxone 4 mg/actuation nasal spray 1 spray INTRANASAL Q3M #2 ea 01/15/20 gabapentin 600 mg tablet 600 mg PO .COMPLEX #450 tab 06/08/20 baclofen 20 mg tablet 20 mg PO QID 90 Days #360 tab 08/23/20 oxycodone 5 mg tablet 5 mg PO Q4H #42 tab 10/14/20 oxymorphone 30 mg tablet,extended 30 mg PO BID #14 tab 10/14/20 release,12 hr amlodipine 10 mg tablet 10 mg PO DAILY #90 tab 10/26/20 meloxicam 15 mg tablet 15 mg PO DAILY #90 tab 11/02/20 metformin 500 mg tablet 500 mg PO BID #180 tab 11/02/20 Results & Data (ED) Vital Signs Vital Signs - 24 hr 11/03/20 18:01 Temperature 37.1 C Temperature Source Oral Pulse Rate 108 H Respiratory Rate 15 Respiratory Effort / Characteristics Non-Labored Respiratory Depth Normal Respiratory Pattern Regular Blood Pressure 82/50 L Blood Pressure Mean 60 Blood Pressure Position Lying Pulse Oximetry 97 Oxygen Delivery Method Room Air Sepsis Recent Fever Within 48 Hours No Sepsis New/Unexplained Change in Mental Status N/A Sepsis Action Taken by Nursing No Action Required Home Medications Current Medication List: was personally reviewed by me Laboratory Data Attestation: I reviewed the patient's lab results. Result diagrams: 11/03/20 18:09 11/03/20 18:09 Lab Results 11/03/20 11/03/20 11/03/20 Range/Units 18:09 18:09 18:09 WBC 11.80 H (4.8-10.8) K/uL RBC 3.79 L (4.7-6.1) M/uL Hgb 11.3 L (14.0-18.0) g/dL POC Hgb (14.0-18.0) g/dl Hct 33.4 L (42-52) % POC Hct (42-52) % MCV 88.1 (80-100) fL MCH 29.8 (25-34) pg MCHC 33.8 (32-36) g/dL RDW Std Deviation 39.7 (36.4-46.3) fL RDW Coeff of Arturo 12.3 (11.5-14.5) % Plt Count 265 (130-400) K/uL MPV 9.6 (7.4-10.4) fL Immature Gran % (Auto) 0.8 % Neut % (Auto) 80.9 % Lymph % (Auto) 9.1 % [place] % (Auto) 8.9 % Eos % (Auto) 0.2 % Baso % (Auto) 0.1 % Neut # (Auto) 9.56 H (1.4-6.5) K/uL Lymph # (Auto) 1.07 L (1.2-3.4) K/uL [place] # (Auto) 1.05 H (0.11-0.59) K/uL Eos # (Auto) 0.02 (0-0.5) K/uL Baso # (Auto) 0.01 (0-0.2) K/uL Immature Gran # (Auto) 0.09 H (0.00-0.02) K/uL PT 10.4 (9.0-12.0) Seconds INR 1.0 (0.9-1.1) APTT 25.4 (21.0-31.0) Seconds PTT Ratio 1.0 Activ Coag Time Kaolin (94-140) SECONDS POC Sodium (135-144) mmol/L Sodium 129 L (136-145) mmol/L POC Potassium (3.3-5.0) mmol/L Potassium 4.9 (3.5-5.1) mmol/L POC Chloride (101-112) mmol/L Chloride 95 L (98-107) mmol/L Carbon Dioxide 23 (21-32) mmol/L POC Total CO2 (24-31) mmol/L Anion Gap 11.0 (3-11) POC Anion Gap (16-25) mmol/L POC BUN (7-18) mg/dl BUN 13 (7-18) mg/dl Creatinine 1.70 H (0.6-1.4) mg/dl POC Creatinine (0.6-1.3) mg/dl Est Cr Clr Drug Dosing 42.4 ml/min Est GFR ( Amer) 46.0 ml/min Est GFR (Non-Af Amer) 39.7 ml/min BUN/Creatinine Ratio 7.7 L (10-20) Glucose 228 H (70-99) mg/dl POC Glucose (other) (70-99) mg/dl Calcium 8.3 L (8.5-10.1) mg/dl POC Ioniz Calcium Bre (1.12-1.32) mmol/l Magnesium 1.8 (1.8-2.4) mg/dl Total Bilirubin 0.7 (0.2-1) mg/dl AST 78 H (15-37) U/L ALT 31 (12-78) U/L Alkaline Phosphatase 86 (45-117) U/L Total Creatine Kinase 359 H (39-308) U/L CK-MB (CK-2) 20.5 H (0.5-3.6) ng/ml CK/CKMB % Calc 5.7 H (0-3.0) Troponin I 10.600 H* (0-0.045) ng/ml NT-Pro-B Natriuret Pep 6190 H (0-900) pg/ml Total Protein 7.3 (6.4-8.2) gm/dl Albumin 3.4 (3.4-5.0) gm/dl Globulin 3.9 (2.5-4.0) gm/dl Albumin/Globulin Ratio 0.9 (0.9-2) Lipase 136 (73-393) U/L TSH 1.040 (0.300-4.500) uIu/ml COVID-19 Eval Order SARS-CoV-2 (PCR) (Negative) 11/03/20 11/03/20 11/03/20 Range/Units 18:10 18:10 18:14 WBC (4.8-10.8) K/uL RBC (4.7-6.1) M/uL Hgb (14.0-18.0) g/dL POC Hgb 11.6 L (14.0-18.0) g/dl Hct (42-52) % POC Hct 34 L (42-52) % MCV (80-100) fL MCH (25-34) pg MCHC (32-36) g/dL RDW Std Deviation (36.4-46.3) fL RDW Coeff of Arturo (11.5-14.5) % Plt Count (130-400) K/uL MPV (7.4-10.4) fL Immature Gran % (Auto) % Neut % (Auto) % Lymph % (Auto) % [place] % (Auto) % Eos % (Auto) % Baso % (Auto) % Neut # (Auto) (1.4-6.5) K/uL Lymph # (Auto) (1.2-3.4) K/uL [place] # (Auto) (0.11-0.59) K/uL Eos # (Auto) (0-0.5) K/uL Baso # (Auto) (0-0.2) K/uL Immature Gran # (Auto) (0.00-0.02) K/uL PT (9.0-12.0) Seconds INR (0.9-1.1) APTT (21.0-31.0) Seconds PTT Ratio Activ Coag Time Kaolin (94-140) SECONDS POC Sodium 128 L (135-144) mmol/L Sodium (136-145) mmol/L POC Potassium 4.9 (3.3-5.0) mmol/L Potassium (3.5-5.1) mmol/L POC Chloride 92 L (101-112) mmol/L Chloride (98-107) mmol/L Carbon Dioxide (21-32) mmol/L POC Total CO2 22 L (24-31) mmol/L Anion Gap (3-11) POC Anion Gap 19.0 (16-25) mmol/L POC BUN 14 (7-18) mg/dl BUN (7-18) mg/dl Creatinine (0.6-1.4) mg/dl POC Creatinine 1.7 H (0.6-1.3) mg/dl Est Cr Clr Drug Dosing ml/min Est GFR ( Amer) ml/min Est GFR (Non-Af Amer) ml/min BUN/Creatinine Ratio (10-20) Glucose (70-99) mg/dl POC Glucose (other) 236 H (70-99) mg/dl Calcium (8.5-10.1) mg/dl POC Ioniz Calcium Bre 1.09 L (1.12-1.32) mmol/l Magnesium (1.8-2.4) mg/dl Total Bilirubin (0.2-1) mg/dl AST (15-37) U/L ALT (12-78) U/L Alkaline Phosphatase (45-117) U/L Total Creatine Kinase (39-308) U/L CK-MB (CK-2) (0.5-3.6) ng/ml CK/CKMB % Calc (0-3.0) Troponin I (0-0.045) ng/ml NT-Pro-B Natriuret Pep (0-900) pg/ml Total Protein (6.4-8.2) gm/dl Albumin (3.4-5.0) gm/dl Globulin (2.5-4.0) gm/dl Albumin/Globulin Ratio (0.9-2) Lipase (73-393) U/L TSH (0.300-4.500) uIu/ml COVID-19 Eval Order Covid19 at [facility] SARS-CoV-2 (PCR) NEGATIVE (Negative) 11/03/20 11/03/20 Range/Units 18:48 19:09 WBC (4.8-10.8) K/uL RBC (4.7-6.1) M/uL Hgb (14.0-18.0) g/dL POC Hgb (14.0-18.0) g/dl Hct (42-52) % POC Hct (42-52) % MCV (80-100) fL MCH (25-34) pg MCHC (32-36) g/dL RDW Std Deviation (36.4-46.3) fL RDW Coeff of Arturo (11.5-14.5) % Plt Count (130-400) K/uL MPV (7.4-10.4) fL Immature Gran % (Auto) % Neut % (Auto) % Lymph % (Auto) % [place] % (Auto) % Eos % (Auto) % Baso % (Auto) % Neut # (Auto) (1.4-6.5) K/uL Lymph # (Auto) (1.2-3.4) K/uL [place] # (Auto) (0.11-0.59) K/uL Eos # (Auto) (0-0.5) K/uL Baso # (Auto) (0-0.2) K/uL Immature Gran # (Auto) (0.00-0.02) K/uL PT (9.0-12.0) Seconds INR (0.9-1.1) APTT (21.0-31.0) Seconds PTT Ratio Activ Coag Time Kaolin 230 H 307 H (94-140) SECONDS POC Sodium (135-144) mmol/L Sodium (136-145) mmol/L POC Potassium (3.3-5.0) mmol/L Potassium (3.5-5.1) mmol/L POC Chloride (101-112) mmol/L Chloride (98-107) mmol/L Carbon Dioxide (21-32) mmol/L POC Total CO2 (24-31) mmol/L Anion Gap (3-11) POC Anion Gap (16-25) mmol/L POC BUN (7-18) mg/dl BUN (7-18) mg/dl Creatinine (0.6-1.4) mg/dl POC Creatinine (0.6-1.3) mg/dl Est Cr Clr Drug Dosing ml/min Est GFR ( Amer) ml/min Est GFR (Non-Af Amer) ml/min BUN/Creatinine Ratio (10-20) Glucose (70-99) mg/dl POC Glucose (other) (70-99) mg/dl Calcium (8.5-10.1) mg/dl POC Ioniz Calcium Bre (1.12-1.32) mmol/l Magnesium (1.8-2.4) mg/dl Total Bilirubin (0.2-1) mg/dl AST (15-37) U/L ALT (12-78) U/L Alkaline Phosphatase (45-117) U/L Total Creatine Kinase (39-308) U/L CK-MB (CK-2) (0.5-3.6) ng/ml CK/CKMB % Calc (0-3.0) Troponin I (0-0.045) ng/ml NT-Pro-B Natriuret Pep (0-900) pg/ml Total Protein (6.4-8.2) gm/dl Albumin (3.4-5.0) gm/dl Globulin (2.5-4.0) gm/dl Albumin/Globulin Ratio (0.9-2) Lipase (73-393) U/L TSH (0.300-4.500) uIu/ml COVID-19 Eval Order SARS-CoV-2 (PCR) (Negative) Administered Medications Baclofen (Baclofen 20 Mg Tab) 20 mg PO QID JEY Stop: 12/03/20 20:59 Last Admin: 11/03/20 22:04 Dose: 20 mg Documented by: [id number] Gabapentin (Gabapentin 600 Mg Tab) 1,200 mg PO HS [facility] Stop: 12/03/20 20:59 Last Admin: 11/03/20 22:03 Dose: 1,200 mg Documented by: [id number] Sodium Chloride (Nss 1000ml) 1,000 mls @ 150 mls/hr IV .[id number] [facility] Stop: 11/04/20 02:09 Last Admin: 11/03/20 22:02 Dose: 150 mls/hr Documented by: [id number] Eptifibatide (Integrilin) 75 mg in 100 mls @ 6.84 mls/hr IV .[id number] [facility]; Protocol Stop: 11/04/20 02:00 Last Admin: 11/03/20 19:36 Dose: 1 mcg/kg/min, 6.8 mls/hr Documented by: [id number] Cosigned by: [id number] Discontinued Medications Atropine Sulfate (Atropine Sulfate 0.1 Mg/Ml 10ml Syr) Confirm Administered Dose 1 mg IV .STK-MED ONE Stop: 11/03/20 18:38 Last Admin: 11/03/20 19:21 Dose: Not Given Documented by: [id number] Clopidogrel Bisulfate (Clopidogrel Bisulfate 300 Mg Tab) 300 mg PO NOW STA Stop: 11/03/20 17:59 Last Admin: 11/03/20 19:16 Dose: 300 mg Documented by: [id number] Dopamine HCl/Dextrose (Dopamine 400mg / 250ml D5w ([facility] Use Only)) Confirm Administered Dose 400 mg .ROUTE .STK-MED ONE Stop: 11/03/20 18:21 Last Admin: 11/03/20 19:20 Dose: Not Given Documented by: [id number] Eptifibatide (Eptifibatide 2 Mg/Ml 10 Ml Vial ([facility] Use Only)) Confirm Administered Dose 20 mg IV .STK-MED ONE Stop: 11/03/20 18:51 Last Admin: 11/03/20 19:21 Dose: 7.9 ml Documented by: [id number] Eptifibatide (Eptifibatide 2 Mg/Ml 10 Ml Vial ([facility] Use Only)) Confirm Administered Dose 20 mg IV .STK-MED ONE Stop: 11/03/20 18:52 Last Admin: 11/03/20 19:21 Dose: 7.9 ml Documented by: [id number] Eptifibatide (Eptifibatide 0.75 Mg/Ml 75mg Vial ([facility] Use Only)) Confirm Administered Dose 75 mg .ROUTE .STK-MED ONE Stop: 11/03/20 18:52 Last Increment: 11/03/20 19:21 Dose: 13.7 mg Documented by: [id number] Eptifibatide (Eptifibatide 0.75 Mg/Ml 75mg Vial ([facility] Use Only)) Confirm Administered Dose 75 mg .ROUTE .STK-MED ONE Stop: 11/03/20 18:59 Last Admin: 11/03/20 19:22 Dose: Not Given Documented by: [id number] Fentanyl Citrate (Fentanyl Citrate 100 Mcg/2 Ml Vial) Confirm Administered Dose 100 mcg .ROUTE .STK-MED ONE Stop: 11/03/20 18:08 Last Increment: 11/03/20 19:17 Dose: 50 mcg Documented by: [id number] Heparin Sodium (Porcine) (Heparin (Porcine) 1000 Unit/Ml 10 Ml ([facility] Use Only)) Confirm Administered Dose 10,000 units .ROUTE .STK-MED ONE Stop: 11/03/20 18:08 Last Admin: 11/03/20 19:17 Dose: 12,000 units Documented by: [id number] Heparin Sodium (Porcine) (Heparin (Porcine) 1000 Unit/Ml 10 Ml ([facility] Use Only)) Confirm Administered Dose 10,000 units .ROUTE .STK-MED ONE Stop: 11/03/20 18:56 Last Admin: 11/03/20 19:22 Dose: Not Given Documented by: [id number] Heparin Sodium/Sodium Chloride (Heparin In Nss Infusion 1000 Unit/500 Ml (2 U/Ml) Bag) Confirm Administered Dose 3,000 units IV .STK-MED ONE Stop: 11/03/20 18:08 Last Admin: 11/03/20 19:19 Dose: 3,000 units Documented by: [id number] Sodium Chloride (Nss) 500 mls @ 999 mls/hr IV .Q31M [facility] Stop: 11/03/20 18:30 Last Admin: 11/03/20 18:10 Dose: 999 mls/hr Documented by: [id number] Midazolam HCl (Midazolam Hcl 1 Mg/Ml 2ml Vial) Confirm Administered Dose 2 mg .ROUTE .STK-MED ONE Stop: 11/03/20 18:08 Last Admin: 11/03/20 19:20 Dose: Not Given Documented by: [id number] Nicardipine HCl (Nicardipine Hcl Inj 2.5 Mg/Ml 10 Ml Amp) Confirm Administered Dose 25 mg .ROUTE .STK-MED ONE Stop: 11/03/20 18:08 Last Admin: 11/03/20 19:20 Dose: 25 mg Documented by: [id number] Nitroglycerin/Dextrose (Nitroglycerin/D5w 100mcg/Ml 20ml Syr) Confirm Administered Dose 2,000 mcg .ROUTE .STK-MED ONE Stop: 11/03/20 18:08 Last Admin: 11/03/20 19:20 Dose: 2,000 mcg Documented by: [id number] Norepinephrine Bitartrate (Norepinephrine Bitartrate 1 Mg/Ml 4 Ml Vial ([facility] Use Only)) Confirm Administered Dose 8 mg .ROUTE .STK-MED ONE Stop: 11/03/20 18:22 Last Admin: 11/03/20 19:20 Dose: 0.05 mcg Documented by: [id number] Imaging Data Radiologist's Impression: Chest X-Ray 11/03/20 17:58 XR chest 1V portable CLINICAL HISTORY: Chest pain COMPARISON STUDY: Chest radiograph August 05, 2018. FINDINGS: Lung volumes are normal. Lungs are clear. There is no pneumothorax or pleural effusion. Slight enlargement of the cardiac silhouette is noted. Mediastinal contours are normal. There is no evidence for pulmonary edema. Incidental note is made of postoperative findings within the cervical spine as w ell as the thoracolumbar spine, partially imaged on this exam. IMPRESSION: No acute cardiopulmonary findings. ACT 112: Negative or not required by law. Electronically signed by: Salvador Sim M.D. 11/03/2020 6:18 PM Discharge Plan Visit Data Chief Complaint: Heart Alert ED Provider: Ryan Rg Discharge Problem: ST elevation (STEMI) myocardial infarction Patient Disposition: Admitted As Inpatient Discharge Instructions Interventions: ED Discharge Assessment Last Done: 11/03/20 18:32
[2020-11-03] MEDS ORDERED: SODIUM CHLORIDE 0.9% 500 ML IV SCH (18:00)
[2020-11-03] MEDS ORDERED: fentaNYL citrate 100 MCG/2 ML VIAL ONE (18:07)
[2020-11-03] MEDS ORDERED: NITROGLYCERIN/D5W 100MCG/ML 20ML SYR ONE (18:07)
[2020-11-03] MEDS ORDERED: HEPARIN (PORCINE) 1000 UNIT/ML 10 ML (CATH LAB USE ONLY) ONE ×2 (18:07→18:55)
[2020-11-03] MEDS ORDERED: MIDAZOLAM HCL 1 MG/ML 2ML VIAL ONE (18:07)
[2020-11-03] MEDS ORDERED: niCARdipine HCL INJ 2.5 MG/ML 10 ML AMP ONE (18:07)
[2020-11-03] MEDS: CLOPIDOGREL BISULFATE 300 MG TAB PO STA ×2 (18:09→19:16)
--- NOTE | 2020-11-03 18:19 | XRay Report ---
XR chest 1V portable CLINICAL HISTORY: Chest pain COMPARISON STUDY: Chest radiograph August 05, 2018. FINDINGS: Lung volumes are normal. Lungs are clear. There is no pneumothorax or pleural effusion. Sli ght enlargement of the cardiac silhouette is noted. Mediastinal contours are normal. There is no evid ence for pulmonary edema. Incidental note is made of postoperative findings within the cervical spine as well as the thoracolumbar spine, partially imaged on this exam. IMPRESSION: No acute cardiopulmonary findings. ACT 112: Negative or not required by law. Electronically signed by: Salvador Sim M.D. 11/03/2020 6:18 PM
[2020-11-03] MEDS ORDERED: DOPamine 400MG / 250ML D5W (Cath Lab Use ONLY) ONE (18:20)
[2020-11-03 18:21] LABS: Basophils # (auto) 0.01 K/uL (0-0.2); Basophils % (auto) 0.1 %; Eosinophils # (auto) 0.02 K/uL (0-0.5); Eosinophils % (auto) 0.2 %; Hematocrit (blood only) 33.4 % (42-52); Hemoglobin 11.3 g/dL (14.0-18.0); Immature Granulocytes # (auto) 0.09 K/uL (0.00-0.02); Immature Granulocytes % (auto) 0.8 %; Lymphocytes # (auto) 1.07 K/uL (1.2-3.4); Lymphocytes % (auto) 9.1 %; Mean Corpuscular Hemoglobin 29.8 pg (25-34); Mean Corpuscular Hgb Conc 33.8 g/dL (32-36); Mean Corpuscular Volume 88.1 fL (80-100); Mean Platelet Volume 9.6 fL (7.4-10.4); Monocytes # (auto) 1.05 K/uL (0.11-0.59); Monocytes % (auto) 8.9 %; Neutrophils # (auto) 9.56 K/uL (1.4-6.5); Neutrophils % (auto) 80.9 %; Platelet Count 265 K/uL (130-400); RDW Coefficient of Variation 12.3 % (11.5-14.5); RDW Standard Deviation 39.7 fL (36.4-46.3); Red Blood Count 3.79 M/uL (4.7-6.1)
[2020-11-03] MEDS ORDERED: NOREPINEPHRINE BITARTRATE 1 MG/ML 4 ML VIAL (CATH LAB USE ONLY) ONE (18:21)
[2020-11-03 18:25] LABS: iSTAT Creatinine 1.7 mg/dl (0.6-1.3); iSTAT Hemoglobin 11.6 g/dl (14.0-18.0); iSTAT Ionized Calcium 1.09 mmol/l (1.12-1.32); iSTAT Potassium 4.9 mmol/L (3.3-5.0)
[2020-11-03 18:33] LABS: Partial Thromboplastin Time 25.4 Seconds (21.0-31.0); Prothrombin Time 10.4 Seconds (9.0-12.0)
[2020-11-03] MEDS ORDERED: ATROPINE SULFATE 0.1 MG/ML 10ML SYR IV ONE (18:37)
[2020-11-03 18:40] LABS: Albumin Level 3.4 gm/dl (3.4-5.0); BUN Creatinine Ratio 7.7 (10-20); Calcium 8.3 mg/dl (8.5-10.1); Creatinine Clr Calc Pharmacy 42.4 ml/min; Est GFR (Non-African American) 39.7 ml/min; Magnesium 1.8 mg/dl (1.8-2.4); Potassium 4.9 mmol/L (3.5-5.1)
[2020-11-03] MEDS ORDERED: EPTIFIBATIDE 2 MG/ML 10 ML VIAL (CATH LAB USE ONLY) IV ONE ×2 (18:50→18:51)
[2020-11-03] MEDS ORDERED: EPTIFIBATIDE 0.75 MG/ML 75MG VIAL (CATH LAB USE ONLY) ONE ×2 (18:51→18:58)
[2020-11-03 19:24] LABS: Albumin Globulin Ratio 0.9 (0.9-2); Bilirubin,Total 0.7 mg/dl (0.2-1); Creatine Kinase MB 20.5 ng/ml (0.5-3.6); Globulin 3.9 gm/dl (2.5-4.0); Thyroid Stimulating Hormone 1.04 uIu/ml (0.300-4.500); Total Protein 7.3 gm/dl (6.4-8.2); Troponin I 10.6 ng/ml (0-0.045)
--- NOTE | 2020-11-03 19:27 | Pre Anesthesia Assessment ---
Date of Service November 03, 2020 Pre Sedation Assessment Vital Signs Temp Pulse Resp BP Pulse Ox 11/03/20 18:01 98.8 F 108 H 15 82/50 L 97 Cardiovascular RRR, no murmur, no edema Respiratory normal respiratory effort, lungs clear to auscultation Pre-Sedation Airway Assessment Smoking Status: Never smoker Hx Sleep Apnea: No Hx Difficult Intubation: No Short, Thick Neck: No Thyromental Distance: > or= 3.5 Finger Breadths Oral Cavity: + WNL Mallampati Class: III ASA: ASA3 Procedure Planning Contraindications for Sedation: none Current Medications Reviewed: Yes Notes The planned sedation has been discussed with the patient. Informed Consent was obtained. I have identified the patient, determined the appropriateness of sedation and have assessed the patient immediately prior to the procedure. All medicine(s) and interventions are by my order.
--- NOTE | 2020-11-03 19:27 | Post Anesthesia Assessment ---
Date of Service November 03, 2020 Post Sedation Assessment Vital Signs Temp Pulse Resp BP Pulse Ox 11/03/20 18:01 98.8 F 108 H 15 82/50 L 97 Recovery Score Activity: Moves 4 extremities Respiration: Deep Breath/Cough Circulation: +/-20% PreAnes Value Consciousness: Fully Awake Oxygen Saturation: O2 needed for >90% Discharge Sedation Level of Care: Fast Track Phase II Post Sedation Plan On clinical assessment, the patient appears to have tolerated the sedation without complications. Patient is recovering as anticipated. Patient will continue to be monitored by nursing and may be discharged when sedation discharge criteria are met per below protocol. Upon Completions of procedure up to 15 minutes continue every 5 minute vital signs and the P.A.R. score; then discharge to a Phase I or Fast Track to Phase I I per the following guidelines: * Discharge Patient to appropriate Phase II area if PAR is 8 or greater or return to pre- procedure baseline. The post - procedure orders will be as directed. * If PAR score is less than 8 or not return to pre-procedure baseline then patient will follow Phase I monitoring till PAR is reached for Phase II. The Phase I may be done in procedure room or may call to secure a Phase I area. * If naloxone or flumazenil are used for reversal, hold in Phase I for continued monitoring from when last reversal dose was given for a minimum of 60 minutes or longer pending the nurse and/or physician discretion of patient condition before discharge to Phase II. Please call the Sedation Physician to re-evaluate and complete post-note for discharge to Phase II area. Do NOT discharge from procedure sedation or Phase 1 until post- sedation evaluation note is complete by procedure /sedation MD Sedation Discharge Instructions to be given to the patient at discharge to home.
[2020-11-03] MEDS ORDERED: EPTIFIBATIDE BOLUS/DRIP IV STA (19:28)
[2020-11-03] MEDS ORDERED: ACETAMINOPHEN 325 MG TAB PO PRN (19:28)
[2020-11-03] MEDS ORDERED: ONDANSETRON INJ 2 MG/ML 2 ML VIAL IV PRN (19:28)
[2020-11-03] MEDS ORDERED: EPTIFIBATIDE 75 MG/100 ML VIAL IV SCH (19:30)
[2020-11-03] MEDS ORDERED: SODIUM CHLORIDE 0.9% 1000ML 1,000 ML IV SCH (19:30)
[2020-11-03] MEDS ORDERED: ICU PROTOCOL FOR HYPERGLYCEMIA PRN (19:33)
[2020-11-03] MEDS ORDERED: MoRPHine SULFATE 2 MG/ML CARP IV PRN (19:46)
--- NOTE | 2020-11-03 19:47 | Cardiology Consultation ---
Date of Consultation November 03, 2020 Assessment & Plan (1) STEMI (ST elevation myocardial infarction): Presentation consistent with syncope in the setting of possible inferior IN. Recommend proceeding with emergent cardiac catheterization and likely primary PCI. No apparent contraindications to procedure. Discussed risks, benefits, alternatives of procedure with patient and they are willing to proceed. Further recommendations pending findings of coronary angiography. History of Present Illness Attending Physician: Khadar Harvey MD History of Present Illness 70-year-old man here with syncopal episode and ECG concerning for acute IN. Patient seen emergently after heart alert activated en route by EMS. No prior cardiac history. Cardiac risk factors include Type 2 diabetes on Metformin, hypertension, dyslipidemia and prior tobacco use. Other medical issues include Rectal cancer post resection with colostomy in place, obstructive sleep apnea, peripheral neuropathy, chronic back pain post multiple spine surgeries, GERD, BPH. [facility] in the setting of Dehydration/LYUBOV. Today has been in his usual state of health until this afternoon when walking to his home, appeared diaphoretic and collapsed. Awake but unresponsive per family post collapse and EMS called. On arrival ECG with borderline inferior ST elevations. In ED hypotensive to 70s to 80s. ECG again with borderline inferior ST elevations. Patient more awake and denied any chest pain, shortness of breath. Initial troponin 10.6. Allergies Allergy/AdvReac Type Severity Reaction Status Date / Time rosuvastatin AdvReac Severe Myalgia Verified 11/03/20 18:12 Home Medications Medication Instructions Recorded Confirmed Type naloxone 4 mg/actuation nasal spray 1 spray INTRANASAL Q3M #2 ea 01/15/20 11/03/20 Rx vitamin B12 500 mcg-folic acid 400 1 tab PO DAILY 02/12/20 11/03/20 History mcg tablet gabapentin 600 mg tablet 600 mg PO .COMPLEX #450 tab 06/08/20 11/03/20 Rx baclofen 20 mg tablet 20 mg PO QID 90 Days #360 tab 08/23/20 11/03/20 Rx acetaminophen 500 mg capsule 500 mg PO Q8H PRN cap 10/12/20 11/03/20 History tamsulosin 0.4 mg capsule 0.4 mg PO HS cap 10/12/20 11/03/20 History oxycodone 5 mg tablet 5 mg PO Q4H #42 tab 10/14/20 11/03/20 Rx oxymorphone 30 mg tablet,extended 30 mg PO BID #14 tab 10/14/20 11/03/20 Rx release,12 hr amlodipine 10 mg tablet 10 mg PO DAILY #90 tab 10/26/20 11/03/20 Rx meloxicam 15 mg tablet 15 mg PO DAILY #90 tab 11/02/20 11/03/20 Rx metformin 500 mg tablet 500 mg PO BID #180 tab 11/02/20 11/03/20 Rx lisinopril 40 mg tablet 40 mg PO QAM 11/03/20 11/03/20 History Patient History Medical History (Updated 11/03/20 @ 19:46 by Boom Harvey MD) Anxiety disorder BPH with obstruction/lower urinary tract symptoms Chronic back pain DM2 (diabetes mellitus, type 2) Gastroesophageal reflux Hypertension Hyponatremia Obstructive sleep apnea Osteoarthritis Peripheral neuropathy Surgical History H/O inguinal hernia repair H/O resection of rectum History of rectal surgery Previous back surgery S/P cervical spinal fusion S/P tonsillectomy and adenoidectomy Family History Father Cardiovascular disease Cardiac disorder Prostate cancer Mother Dementia Diabetes Other Hypertension No significant family history Denies family history of Ovarian cancer Myocardial infarction Breast cancer Colorectal cancer Social History Smoking Status: Never smoker Age Started Using Tobacco: 17; Age Quit Using Tobacco: 24; packs per day: 1; Years Smoked: 7; Cigarettes Per Day: 20; Number of Years Since Quit: 46; Second Hand Exposure: No; Hx Alcohol Use: No Hx Substance Use: Yes (patient was taking meds incorrectly on accident) Last Used Substance: Just Prior to Arrival Last Used Substance Other:: family unsure of last doses Preferred Language: [place] Communication Ability: Effective Visual Impairment: No Limitations Hearing Ability: Normal Conservation Worker Required: No Beliefs That Will Affect Care: None marital status: Current Living Situation: Spouse current occupational status: retired How many Children do You have: 4 Feels Safe at Home: Yes Childhood Exposure to Second-Hand Smoke: No caffeine: Yes during the past year weight has: remained stable Dental Care, Regularly: No Physical Activity Frequency: Daily Seatbelt Use: always Sunscreen Use: No Assistive Devices: Denture - Upper, Denture - Lower and Glasses Review of Systems Review of Systems: Not obtained the setting of emergent situation Physical Exam Physical Exam: General: Comfortable HEENT: Sclerae anicteric Lungs: Clear anteriorly Cardiac: Tachycardic, regular Vascular: 2+ radial Abdomen: Soft, nontender Extremities: Well perfused, no peripheral edema Neuro: Nonfocal Psych: Alert orient x3, normal affect and mood Results & Data ([facility]) Vital Signs (Past 12 Hours) Vital Signs Temp Pulse Resp BP Pulse Ox 11/03/20 18:01 98.8 F 108 H 15 82/50 L 97 PG Care Time/CCT Total # of Minutes Spent Total Time Spent with Patient: Total time spent is greater than 50% in coordination of care (as documented) at patient's floor/unit and/or counseling patient: Coding Level of Care Code 77425 Inpt Consult Level 4 Diagnoses STEMI (ST elevation myocardial infarction) I21.3
--- NOTE | 2020-11-03 20:05 | Cardiac Catheterization ---
[facility] Data: Senior Commercial Loan Officer Cardiac Status Clinical evaluation leading to the procedure CAD Presenation: STEMI Anginal Classification: CCS IV Heart Failure: No Cardiogenic Shock within 24 Hours: Yes Cardiac Arrest within 24 Hours: No Imaging Studies Past 6 Months: No Stress Studies Past 6 Months: No Diagnostic Physicians Name: Khadar Harvey MD Status: Emergency Closure Device Percutaneous Entry Location: Radial Closure Device: Radial Band Recommendations: PCI without planned CABG PCI Indication: Immediate PCI for STEMI Lesion Segment Name: Proximal RCA Culprit Artery: Yes Stenosis Prior to Rx (%): 100 Chronic Total Occlusion: No IVUS: No FFR: No Pre-Procedure LAVINIA Flow: 0 Previously Treated Lesion: No Lesion Complexity: Non-High/Non-C Lesion Length (mm): 20 Thrombus Present: Yes Bifurcation Lesion: No Guidewire Across Lesion: Stenosis Post-Procedure (%): 0 Post-Procedure LAVINIA Flow: 3 Devices(s) Deployed: Yes Yes Intraprocedure Events Significant Disection: No Perforation: No Cardiac Cath Procedure Full Procedure Date November 03, 2020 Pre-Procedure Diagnosis Pre-Procedure Diagnosis: STEMI AUC Score AUC Score: 9 Post-Procedure Diagnosis Post-Procedure Diagnosis: Severe CAD, Successful PCI and Normal Intracardiac Pressures Procedure(s) Performed Procedure(s) Performed: Coronary Angiography, Left Heart Cath, Aspiration Thrombectomy and Drug Eluting Stent Environmental Studies Department Chair Khadar Harvey MD Director [employer] Prashant Estimated Blood Loss Estimated Blood Loss: 15 Medication(s) Medication(s): Clopidogrel, Fentanyl, Integrilin, Lidocaine 1%, Nicardipine, Nitroglycerin, Norepinephrine and Versed Summary of Findings Indication: STEMI/Heart Alert Access: 6 Fr right radial artery Catheters: Remer, JR4 guide, pigtail Findings: LM -normal caliber, no significant disease LAD -medium caliber, 50% proximal, 40% mid after D2. Small distal vessel without significant disease and wraps around apex. 50% proximal D1 Ramussmall, 60% mid segment stenosis Circumflex -medium caliber, mid segment luminal irregularities. Small to medium caliber OM 2 with 60% proximal disease. Small OM 3 with 70% proximal stenosis RCA -acute 100% proximal occlusion. PDA filled faintly retrograde via [id number] collaterals LVEDP -12 -- PCI -- Antithrombotic therapy: Heparin, Integrilin, clopidogrel Procedure: RCA cannulated with JR4 guide Home Health Provider 50 wire passed across lesion into distal vessel Proximal to mid RCA lesion predilated with 2.5 compliant balloon Dilated lesion stented with 3.5 x 28 mm Xience drug-eluting stent Post stent placement no reflow secondary to distal thrombus emboli Aspiration thrombectomy performed with export catheter Given IC Integrilin, vasodilators to distal vessel through export catheter Stent post-dilated with 3.5 noncompliant balloon Additional IC vasodilators administered Regained LAVINIA-3 flow in RCA and proximal/mid PDA. Still with residual thrombus in distal RCA. Thrombus dottered with 2.0 balloon. Post procedure still with some residual thrombus in very distal PDA but ST elev ations largely resolved. LAVINIA 3 flow remainder of RCA system, stent well expanded and no apparent cardiac complications. Procedure course complicated by hypotension requiring 1 L IV fluid bolus and initiation of norepinephrine which was weaned off by completion of case. Arterial Closure: TR band Summary: 1. Inferior STEMI/100% acute on chronic proximal RCA occlusion 2. Moderate non-culprit coronary artery disease -50% proximal, 40% mid LAD. 50% small proximal D1 60% small mid ramus, 60% proximal OM2, 70% small OM 3 3. Transient cardiogenic shock/suspected RV failure 4. Normal LVEDP 5. Successful PCI of proximal to mid RCA with single drug-eluting stent (3.5 x 28 mm Xience). Recommendations: Admit to ICU for continued monitoring Additional IV fluid boluses for hypotension Continue Integrilin for 6 hours for residual distal thrombus Loaded with clopidogrel 600 mg in Senior Commercial Loan Officer Continue dual-antiplatelet therapy for at least 1 year. Trend troponins until peak, Check Echo Start beta-vaibhav, THA as BP allows Trial of low-dose statin with prior allergy Consult cardiac Rehab Hemodynamics Rest Ao:: 67/43/53 Final Ao: 118/64/85 LV: 119/12 Recommendations Recommendations: PCI without planned CABG Specimens Specimens: None Radiation Exposure (mGy) 1830 Contrast (mls) 120 Fluids (cc crystalloids) Fluids (cc crystalloids): 750 Drains Drains: None Anesthesia Moderate 4804-3814 Procedural Complication(s) None Disposition ICU I attest to the content of the Intraoperative Record and any orders documented therein. Any exceptions are noted below. NewsBreakG Card Cath Procedure Codes Cardiac Catheterization Procedure 1: Cardiovascular Cath Procedures: 23988 Coronaries and LHC (+/-LV) Moderate Sedation Procedure 1: Sedation/Anesthesia: 82630 Mod Sedation by the same physician;Init15 Min Child Age 5 & Up Procedure 2: Sedation/Anesthesia: 26756 Mod Sedation by the same physician; Ea [id number] Minutes Stenting Procedure 1: Cardiovascular Stent Procedures: 35197 Perc transluminal revascularization of acute sub/total occl, aMI PG Care Time/CCT Total # of Minutes Spent Total Time Spent with Patient: Total time spent is greater than 50% in coordination of care (as documented) at patient's floor/unit and/or counseling patient:
--- NOTE | 2020-11-03 20:12 | History & Physical Report ---
Date of Service November 03, 2020 Assessment & Plan (1) ST elevation (STEMI) myocardial infarction: Plan: 70yo male with history of HTN, HLP and DM presenting with inferior STEMI s/p cardiac catheterization with JOO x 1 to distal RCA -Admit to MICU -Trend troponin q 8 hours x 3 sets -Check 2D echo -Check HgbA1C and Lipid panel for risk stratification -ASA 81mg po daily -Plavix 75mg po daily -Atorvastatin 20mg po qAM with caution - patient with history of statin induced myopathy -Metoprolol 12.5mg po BID - titrate as tolerated (2) BPH with obstruction/lower urinary tract symptoms: Plan: Chronic -Continue Flomax 0.4mg po qHS -Monitor UOP, bladder scan as needed (3) DM2 (diabetes mellitus, type 2): Plan: Blood sugar elevated upon arrival. Last HgbA1C from 01/2020 = 6.8. Patient on Metformin outpatient. -Hold Metformin -MICU Hyperglycemia protocol -Check A1C (4) Hypertension: Plan: Patient with episode of hypotension during catheterization requiring brief treatment with pressors and IVF. Blood pressure has since improved. -Metoprolol 12.5mg po BID - increase as tolerated -Hold Amlodipine -Hold Lisinopril for now - consider restarting in AM if BP tolerates. (5) Gastroesophageal reflux: Plan: Chronic. Stable -Continue Protonix 40mg po daily Plan: F/E/N - NSS at 150mL/hr x 1 liter. LVEDP of 12 in geoscience laboratory technician, Xb=705 - patient with chronic hyponatremia with baseline Na appx 130-135, AHA/CC diet as tolerated Ppx - ASA, Plavix. On Integrillin currently Code - Full Dispo - Admit to MICU for post-cardiac catheterization care Admission and Anticipated Discharge Date Admission Date: November 03, 2020 History of Present Illness Chief Complaint: Inferior STEMI Primary Care Provider: Andreea Sevilla MD Jere Borrego is a 70yo male with history of DM, HTN presenting from home with inferior STEMI. He reports some mild chest pain several days ago but no chest pain today. He was in his usual state of health today. He was getting groceries this afternoon and states that he felt a bit "off". He became confused on the drive home and almost got lost. When he got home he stumbled and fell in his home. His states that he was minimally responsive. She helped him to a chair and dialed 911. Patient had a syncopal event witnessed by EMS. Inferior ST elevations noted on transfer. He was administered ASA 324mg en route. He arrived to [facility] as a Code Heart and was taken to the geoscience laboratory technician. He was found to have 100% proximal occlusion of the RCA as well as non-occlusive disease of LAD, Ramus, OM2 and OM3. Patient had aspiration thrombectomy and placement of JOO. He was administered IC Integrillin and vasodilators. Still with residual thrombus present in very distal portion of the PDA. He had transient cardiogenic shock requiring brief treatment with vasopressors and IVF. Blood pressure improved. He was admitted to MICU post-catheterization. Presently with no complaints. Specifically denies chest pain, tightness, dyspnea, palpitations. No additional complaints at this time. Allergies Allergy/AdvReac Type Severity Reaction Status Date / Time rosuvastatin AdvReac Severe Myalgia Verified 11/03/20 18:12 Home Medications Medication Instructions Recorded Confirmed Type naloxone 4 mg/actuation nasal spray 1 spray INTRANASAL Q3M #2 ea 01/15/20 11/03/20 Rx vitamin B12 500 mcg-folic acid 400 1 tab PO DAILY 02/12/20 11/03/20 History mcg tablet gabapentin 600 mg tablet 600 mg PO .COMPLEX #450 tab 06/08/20 11/03/20 Rx baclofen 20 mg tablet 20 mg PO QID 90 Days #360 tab 08/23/20 11/03/20 Rx acetaminophen 500 mg capsule 500 mg PO Q8H PRN cap 10/12/20 11/03/20 History tamsulosin 0.4 mg capsule 0.4 mg PO HS cap 10/12/20 11/03/20 History oxycodone 5 mg tablet 5 mg PO Q4H #42 tab 10/14/20 11/03/20 Rx oxymorphone 30 mg tablet,extended 30 mg PO BID #14 tab 10/14/20 11/03/20 Rx release,12 hr amlodipine 10 mg tablet 10 mg PO DAILY #90 tab 10/26/20 11/03/20 Rx meloxicam 15 mg tablet 15 mg PO DAILY #90 tab 11/02/20 11/03/20 Rx metformin 500 mg tablet 500 mg PO BID #180 tab 11/02/20 11/03/20 Rx lisinopril 40 mg tablet 40 mg PO QAM 11/03/20 11/03/20 History Past Med/Surg History Medical History (Updated 11/04/20 @ 00:54 by Bernarda Vraela DO) Anxiety disorder BPH with obstruction/lower urinary tract symptoms Chronic back pain DM2 (diabetes mellitus, type 2) Gastroesophageal reflux Hypertension Hyponatremia Obstructive sleep apnea Osteoarthritis Peripheral neuropathy Surgical History H/O inguinal hernia repair H/O resection of rectum History of rectal surgery Previous back surgery S/P cervical spinal fusion S/P tonsillectomy and adenoidectomy Family History Father Cardiovascular disease Cardiac disorder Prostate cancer Mother Dementia Diabetes Other Hypertension No significant family history Denies family history of Ovarian cancer Myocardial infarction Breast cancer Colorectal cancer Social History Smoking Status: Never smoker Age Started Using Tobacco: 17; Age Quit Using Tobacco: 24; packs per day: 1; Years Smoked: 7; Cigarettes Per Day: 20; Number of Years Since Quit: 46; Second Hand Exposure: No; Hx Alcohol Use: No Hx Substance Use: Yes (patient was taking meds incorrectly on accident) Last Used Substance: Just Prior to Arrival Last Used Substance Other:: family unsure of last doses Preferred Language: [place] Communication Ability: Effective Visual Impairment: No Limitations Hearing Ability: Normal 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 Required: No Beliefs That Will Affect Care: None marital status: Current Living Situation: Spouse current occupational status: retired How many Children do You have: 4 Feels Safe at Home: Yes Childhood Exposure to Second-Hand Smoke: No caffeine: Yes during the past year weight has: remained stable Dental Care, Regularly: No Physical Activity Frequency: Daily Seatbelt Use: always Sunscreen Use: No Assistive Devices: Denture - Upper, Denture - Lower and Glasses Review of Systems Review of Systems: All systems reviewed & are unremarkable except as noted in HPI & below Physical Exam Physical Exam: General: patient resting comfortably, NAD, non-toxic in appearance, AA&O x 4 Skin: warm, dry, intact, no rashes or lesions HEENT: NC/AT, PERRL, EOMI, anicteric sclera, conjunctiva without injection, external ear normal to inspection and nontender, nares patent, moist mucus membranes, dentition intact, no oropharyngeal lesions, neck supple, trachea midline, no LAD, no thyromegaly, no JVD Heart: +S1/S2, regular, no m/r/g Lungs: equal air entry bilaterally, no rales/rhonchi/wheezes Abd: +BS, soft, NT/ND, no masses/organomegaly/ascites Ext: warm, 2+ pulses in UE/LE bilaterally, no clubbing/cyanosis or edema, radial band right wrist Neuro: nonfocal, patient AA&O x 4, speech intact, no facial droop, moving all extremities on command with equal strength 5/5 Results & Data Results & Data ([facility]) Vital Signs (Past 12 Hours) Vital Signs Temp Pulse Resp BP Pulse Ox 11/03/20 18:01 37.1 C 108 H 15 82/50 L 97 Laboratory Results Laboratory Results WBC 11.80 K/uL (4.8-10.8) H 11/03/20 18:09 RBC 3.79 M/uL (4.7-6.1) L 11/03/20 18:09 Hgb 11.3 g/dL (14.0-18.0) L 11/03/20 18:09 POC Hgb 11.6 g/dl (14.0-18.0) L 11/03/20 18:14 Hct 33.4 % (42-52) L 11/03/20 18:09 POC Hct 34 % (42-52) L 11/03/20 18:14 MCV 88.1 fL (80-100) 11/03/20 18:09 MCH 29.8 pg (25-34) 11/03/20 18:09 MCHC 33.8 g/dL (32-36) 11/03/20 18:09 RDW Std Deviation 39.7 fL (36.4-46.3) 11/03/20 18:09 RDW Coeff of Arturo 12.3 % (11.5-14.5) 11/03/20 18:09 Plt Count 265 K/uL (130-400) 11/03/20 18:09 MPV 9.6 fL (7.4-10.4) 11/03/20 18:09 Immature Gran % (Auto) 0.8 % 11/03/20 18:09 Neut % (Auto) 80.9 % 11/03/20 18:09 Lymph % (Auto) 9.1 % 11/03/20 18:09 [place] % (Auto) 8.9 % 11/03/20 18:09 Eos % (Auto) 0.2 % 11/03/20 18:09 Baso % (Auto) 0.1 % 11/03/20 18:09 Neut # (Auto) 9.56 K/uL (1.4-6.5) H 11/03/20 18:09 Lymph # (Auto) 1.07 K/uL (1.2-3.4) L 11/03/20 18:09 [place] # (Auto) 1.05 K/uL (0.11-0.59) H 11/03/20 18:09 Eos # (Auto) 0.02 K/uL (0-0.5) 11/03/20 18:09 Baso # (Auto) 0.01 K/uL (0-0.2) 11/03/20 18:09 Immature Gran # (Auto) 0.09 K/uL (0.00-0.02) H 11/03/20 18:09 PT 10.4 Seconds (9.0-12.0) 11/03/20 18:09 INR 1.0 (0.9-1.1) 11/03/20 18:09 APTT 25.4 Seconds (21.0-31.0) 11/03/20 18:09 PTT Ratio 1.0 11/03/20 18:09 Activ Coag Time Kaolin 307 SECONDS (94-140) H 11/03/20 19:09 POC Sodium 128 mmol/L (135-144) L 11/03/20 18:14 Sodium 129 mmol/L (136-145) L 11/03/20 18:09 POC Potassium 4.9 mmol/L (3.3-5.0) 11/03/20 18:14 Potassium 4.9 mmol/L (3.5-5.1) 11/03/20 18:09 POC Chloride 92 mmol/L (101-112) L 11/03/20 18:14 Chloride 95 mmol/L (98-107) L 11/03/20 18:09 Carbon Dioxide 23 mmol/L (21-32) 11/03/20 18:09 POC Total CO2 22 mmol/L (24-31) L 11/03/20 18:14 Anion Gap 11.0 (3-11) 11/03/20 18:09 POC Anion Gap 19.0 mmol/L (16-25) 11/03/20 18:14 POC BUN 14 mg/dl (7-18) 11/03/20 18:14 BUN 13 mg/dl (7-18) 11/03/20 18:09 Creatinine 1.70 mg/dl (0.6-1.4) H 11/03/20 18:09 POC Creatinine 1.7 mg/dl (0.6-1.3) H 11/03/20 18:14 Est Cr Clr Drug Dosing 42.4 ml/min 11/03/20 18:09 Est GFR ( Amer) 46.0 ml/min 11/03/20 18:09 Est GFR (Non-Af Amer) 39.7 ml/min 11/03/20 18:09 BUN/Creatinine Ratio 7.7 (10-20) L 11/03/20 18:09 Glucose 228 mg/dl (70-99) H 11/03/20 18:09 POC Glucose 171 mg/dl (70-99) H 11/03/20 19:53 POC Glucose (other) 236 mg/dl (70-99) H 11/03/20 18:14 Calcium 8.3 mg/dl (8.5-10.1) L 11/03/20 18:09 POC Ioniz Calcium Bre 1.09 mmol/l (1.12-1.32) L 11/03/20 18:14 Magnesium 1.8 mg/dl (1.8-2.4) 11/03/20 18:09 Total Bilirubin 0.7 mg/dl (0.2-1) 11/03/20 18:09 AST 78 U/L (15-37) H 11/03/20 18:09 ALT 31 U/L (12-78) 11/03/20 18:09 Alkaline Phosphatase 86 U/L (45-117) 11/03/20 18:09 Total Creatine Kinase 359 U/L (39-308) H 11/03/20 18:09 CK-MB (CK-2) 20.5 ng/ml (0.5-3.6) H 11/03/20 18:09 CK/CKMB % Calc 5.7 (0-3.0) H 11/03/20 18:09 Troponin I 10.600 ng/ml (0-0.045) H* 11/03/20 18:09 NT-Pro-B Natriuret Pep 6190 pg/ml (0-900) H 11/03/20 18:09 Total Protein 7.3 gm/dl (6.4-8.2) 11/03/20 18:09 Albumin 3.4 gm/dl (3.4-5.0) 11/03/20 18:09 Globulin 3.9 gm/dl (2.5-4.0) 11/03/20 18:09 Albumin/Globulin Ratio 0.9 (0.9-2) 11/03/20 18:09 Lipase 136 U/L (73-393) 11/03/20 18:09 TSH 1.040 uIu/ml (0.300-4.500) 11/03/20 18:09 COVID-19 Eval Order Covid19 at [facility] 11/03/20 18:10 SARS-CoV-2 (PCR) NEGATIVE (Negative) 11/03/20 18:10 Impressions Chest X-Ray 11/03/20 17:58 XR chest 1V portable CLINICAL HISTORY: Chest pain COMPARISON STUDY: Chest radiograph August 05, 2018. FINDINGS: Lung volumes are normal. Lungs are clear. There is no pneumothorax or pleural effusion. Slight enlargement of the cardiac silhouette is noted. Mediastinal contours are normal. There is no evidence for pulmonary edema. Incidental note is made of postoperative findings within the cervical spine as well as the thoracolumbar spine, partially imaged on this exam. IMPRESSION: No acute cardiopulmonary findings. ACT 112: Negative or not required by law. Electronically signed by: Salvador Sim M.D. 11/03/2020 6:18 PM ECG Additional Comments: Initial EKG with ST elevations in II, III, aVF Code Status & VTE Plan VTE Prophylaxis Plan VTE Prophylaxis will be ordered: Yes PG Care Time/CCT Total # of Minutes Spent Total Time Spent with Patient: Total time spent is greater than 50% in coordination of care (as documented) at patient's floor/unit and/or counseling patient: 45 Coding Level of Care Code None Diagnoses ST elevation (STEMI) myocardial infarction I21.11 Involved coronary artery: right coronary artery BPH with obstruction/lower urinary tract symptoms N40.1; N13.8 DM2 (diabetes mellitus, type 2) E11.9 Hypertension I10 Hypertension type: essential hypertension Gastroesophageal reflux K21.9 (1) ST elevation (STEMI) myocardial infarction Involved coronary artery: right coronary artery Qualified Code(s): I21.11 - ST elevation (STEMI) myocardial infarction involving right coronary artery (2) Hypertension Hypertension type: essential hypertension Qualified Code(s): I10 - Essential (primary) hypertension
--- NOTE | 2020-11-03 20:50 | Critical Care Consultation ---
Date of Consultation November 03, 2020 Assessment & Plan (1) Admitted to intensive care unit: Reason Critically Ill: 70-year-old male with acute inferior STEMI s/p PTCI w/ DESx1 to the RCA requiring close hemodynamic monitoring s/p coronary intervention. NEURO - * CAM ICU: NEGATIVE * Chronic spine pain: * Can restart home narcotics when clinically stable. CARDIAC/VASCULAR - * Acute Inferior STEMI s/p PTCI w/ JOO x1 to the RCA: * Clot burden to the distal RCA - continue Integrilin gtt per in terventionalist. * Trend troponin. * ASCVD Rx per typical. * Trend troponin * AM Echo * Monitor on telemetry. RESPIRATORY - * No h/o pulmonary disease. * Saturating well on room air. GI/NUTRITION - * AHA Diet RENAL/LYTES - * LYUBOV: * Monitor PRP s/p contrast media administration. * IVF: NSS@150mL/hr - * No concerns at this time. ENDO - * DMII * BSGs per unit protocol. ISS --> gtt per unit policy. HEME - * Stable H&H. * Monitor for s/s of bleeding s/p Heparin, Plavix, Integrilin ID - * No concerns for infection. LINES/IV ACCESS - * PIVs x2 DVT PROPHYLAXIS - * Hold while on Integrilin gtt. * SCDs I have personally spent 32 minutes of critical care time in the direct management of this patient. This is a life/limb threatening event. This includes time spent evaluating patient, direct bedside care, chart review, placing orders, interpretation of diagnostic studies, discussion with consultants, patient, and family members, as well as other required patient management activities. This time is exclusive of all separately billable procedures, and teaching time and separate from and in addition to any other critical care service time. Thank you for allowing us to participate in the care of this patient. Please refer to my attending physician's documentation for any further recommendations. (2) ST elevation (STEMI) myocardial infarction: (3) S/P PTCA (percutaneous transluminal coronary angioplasty): (4) S/P drug eluting coronary stent placement: (5) H/O malignant neoplasm of rectum: (6) Obstructive sleep apnea: (7) DM2 (diabetes mellitus, type 2): (8) Chronic lumbar pain: (9) Anxiety disorder: (10) Hypertension: History of Present Illness Attending Physician: Bernarda Varela DO History of Present Illness Patient is a 70-year-old male with a significant past medical history of hypertension, GERD, diabetes, BPH, obstructive sleep apnea, history of rectal cancer, and multiple spine surgeries. Patient presented to the emergency department as a heart alert. Apparently, the patient was returning from a grocery store earlier today when he states that he felt "off" while driving his vehicle. Upon arriving his house, the patient was noted to be diaphoretic and slumped over. His did contact EMS. The patient never lost a pulse. He was never completely unconscious. He states that he felt as though he was going to pass out. Patient was noted to be hypotensive. Inferior ST AARTI noted. Patient made heart alert upon arrival to the emergency department. Patient was taken emergently to the catheterization suite where he underwent PTCI with JOO x1 to the RCA. Patient did have some transient hypotension during the procedure which recovered with IV fluids and brief use of pressors. His symptoms rebounded after stent placement. The patient was noted to have a moderate mount of clot distally. Patient to remain on Integrilin drip for the next 6 hours. Upon evaluation in the ICU, the patient is awake, alert, and oriented. He reports that he is chest pain-free at this time. He actually reports he never had intense chest discomfort, but a lightheaded feeling as well as some associated nausea and presyncope. Currently, the patient denies any complaints of headaches, dizziness, lightheadedness, chest pain, palpitations, shortness of breath, pleuritic pain, nausea, vomiting, or abdominal discomfort. Allergies Allergy/AdvReac Type Severity Reaction Status Date / Time rosuvastatin AdvReac Severe Myalgia Verified 11/03/20 18:12 Home Medications Medication Instructions Recorded Confirmed Type naloxone 4 mg/actuation nasal spray 1 spray INTRANASAL Q3M #2 ea 01/15/20 11/03/20 Rx vitamin B12 500 mcg-folic acid 400 1 tab PO DAILY 02/12/20 11/03/20 History mcg tablet gabapentin 600 mg tablet 600 mg PO .COMPLEX #450 tab 06/08/20 11/03/20 Rx baclofen 20 mg tablet 20 mg PO QID 90 Days #360 tab 08/23/20 11/03/20 Rx acetaminophen 500 mg capsule 500 mg PO Q8H PRN cap 10/12/20 11/03/20 History tamsulosin 0.4 mg capsule 0.4 mg PO HS cap 10/12/20 11/03/20 History oxycodone 5 mg tablet 5 mg PO Q4H #42 tab 10/14/20 11/03/20 Rx oxymorphone 30 mg tablet,extended 30 mg PO BID #14 tab 10/14/20 11/03/20 Rx release,12 hr amlodipine 10 mg tablet 10 mg PO DAILY #90 tab 10/26/20 11/03/20 Rx meloxicam 15 mg tablet 15 mg PO DAILY #90 tab 11/02/20 11/03/20 Rx metformin 500 mg tablet 500 mg PO BID #180 tab 11/02/20 11/03/20 Rx lisinopril 40 mg tablet 40 mg PO QAM 11/03/20 11/03/20 History Patient History Medical History (Updated 11/04/20 @ 01:11 by Reggie Fitzgerald PA-C) Anxiety disorder BPH with obstruction/lower urinary tract symptoms Chronic back pain DM2 (diabetes mellitus, type 2) Gastroesophageal reflux Hypertension Hyponatremia Obstructive sleep apnea Osteoarthritis Peripheral neuropathy Surgical History (Updated 11/04/20 @ 01:11 by Reggie Fitzgerald PA-C) H/O inguinal hernia repair H/O resection of rectum History of rectal surgery Previous back surgery S/P cervical spinal fusion S/P tonsillectomy and adenoidectomy Family History Father Cardiovascular disease Cardiac disorder Prostate cancer Mother Dementia Diabetes Other Hypertension No significant family history Denies family history of Ovarian cancer Myocardial infarction Breast cancer Colorectal cancer Social History Smoking Status: Never smoker Age Started Using Tobacco: 17; Age Quit Using Tobacco: 24; packs per day: 1; Years Smoked: 7; Cigarettes Per Day: 20; Number of Years Since Quit: 46; Second Hand Exposure: No; Hx Alcohol Use: No Hx Substance Use: Yes (patient was taking meds incorrectly on accident) Last Used Substance: Just Prior to Arrival Last Used Substance Other:: family unsure of last doses Preferred Language: Upper Sorbian Communication Ability: Effective Visual Impairment: No Limitations 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 Beliefs That Will Affect Care: None marital status: Current Living Situation: Spouse current occupational status: retired How many Children do You have: 4 Feels Safe at Home: Yes Childhood Exposure to Second-Hand Smoke: No caffeine: Yes during the past year weight has: remained stable Dental Care, Regularly: No Physical Activity Frequency: Daily Seatbelt Use: always Sunscreen Use: No Assistive Devices: Denture - Upper, Denture - Lower and Glasses Review of Systems Review of Systems: A complete 10 point review of systems was reviewed with the patient with pertinent positives and negatives as per history of present illness. All else were negative. Physical Exam Physical Exam: VITAL SIGNS - Vital signs and nursing notes were reviewed. GENERAL - 70-year-old male appearing his stated age who is in no acute distress. Communicates well with provider and answers questions appropriately. HEAD - NC/AT. EYES - PERRL with EOMI bilaterally. Sclera anicteric. EARS - No deformities of external structures noted on gross examination bilaterally. NOSE - Midline and without cyanosis. No epistaxis or purulent drainage noted. MOUTH/OROPHARYNX - Without perioral cyanosis. Buccal mucosa pink and moist and without leukoplakia. NECK - Neck with FROM. LUNGS - Chest wall symmetric without accessory muscle use, intercostals retractions, or central cyanosis. Normal vesicular breath sounds CTA B/L. No wheezes, rales, or rhonchi appreciated. CARDIAC - RRR with S1/S2. No murmur, rubs, or gallops appreciated. No reproducib le tenderness to palpation appreciated over the anterior chest wall. ABDOMEN - Abdominal contour flat without pulsations or visible masses. BS normoactive all four quadrants. No tenderness, palpable masses, hepatosplenomegaly, or ascites noted. EXTREMITIES - No clubbing or peripheral cyanosis. No pretibial edema present. +3/5 radial and dorsalis pedis pulses palpated throughout. +5/5 strength noted in UE/LE bilaterally. NEUROLOGIC - Cranial nerves II through XII grossly intact. Sensory intact to light touch throughout. PSYCH - A&Ox3 and cooperates fully with examiner. Pt is very pleasant and i nteracts well with examiner. Results & Data Results & Data ([facility]) Vital Signs (Past 12 Hours) Vital Signs Temp Pulse Resp BP Pulse Ox 11/03/20 18:01 37.1 C 108 H 15 82/50 L 97 Coding Level of Care Code Critical Care 1st 30-74 mins Diagnoses Admitted to intensive care unit Z78.9 ST elevation (STEMI) myocardial infarction I21.11 Involved coronary artery: right coronary artery S/P PTCA (percutaneous transluminal coronary angioplasty) Z98.61 S/P drug eluting coronary stent placement Z95.5 H/O malignant neoplasm of rectum Z85.048 Obstructive sleep apnea G47.33 DM2 (diabetes mellitus, type 2) E11.9 Chronic lumbar pain M54.5; G89.29 Anxiety disorder F41.9 Hypertension I10 Hypertension type: essential hypertension Time Spent (min) 32 (1) ST elevation (STEMI) myocardial infarction Involved coronary artery: right coronary artery Qualified Code(s): I21.11 - ST elevation (STEMI) myocardial infarction involving right coronary artery (2) Hypertension Hypertension type: essential hypertension Qualified Code(s): I10 - Essential (primary) hypertension
[2020-11-03] MEDS: GABAPENTIN 600 MG TAB PO SCH (22:03)
[2020-11-03] MEDS: BACLOFEN 20 MG TAB PO SCH (22:04)
[2020-11-04 05:11] LABS: Basophils # (auto) 0.01 K/uL (0-0.2); Basophils % (auto) 0.1 %; Eosinophils # (auto) 0.01 K/uL (0-0.5); Eosinophils % (auto) 0.1 %; Hematocrit (blood only) 35.6 % (42-52); Immature Granulocytes # (auto) 0.04 K/uL (0.00-0.02); Immature Granulocytes % (auto) 0.5 %; Lymphocytes # (auto) 0.69 K/uL (1.2-3.4); Lymphocytes % (auto) 8.8 %; Mean Corpuscular Hemoglobin 30.1 pg (25-34); Mean Corpuscular Hgb Conc 33.7 g/dL (32-36); Mean Corpuscular Volume 89.2 fL (80-100); Mean Platelet Volume 9.6 fL (7.4-10.4); Monocytes # (auto) 1.08 K/uL (0.11-0.59); Monocytes % (auto) 13.8 %; Neutrophils % (auto) 76.7 %; Platelet Count 184 K/uL (130-400); RDW Coefficient of Variation 12.3 % (11.5-14.5); RDW Standard Deviation 40.2 fL (36.4-46.3); Red Blood Count 3.99 M/uL (4.7-6.1); White Blood Count 7.83 K/uL (4.8-10.8)
[2020-11-04 05:45] LABS: BUN Creatinine Ratio 11.7 (10-20); Blood Urea Nitrogen 13 mg/dl (7-18); Calcium 8.3 mg/dl (8.5-10.1); Carbon Dioxide 26 mmol/L (21-32); Chloride 99 mmol/L (98-107); Chol HDL Ratio 3; Cholesterol 161 mg/dl (0-200); Creatinine Clr Calc Pharmacy 63.9 ml/min; Est GFR (African American) 75.4 ml/min; Glucose 120 mg/dl (70-99); HDL Cholesterol 47 mg/dl; LDL Cholesterol Direct 88 mg/dl; Potassium 4.1 mmol/L (3.5-5.1); Sodium 132 mmol/L (136-145); Triglycerides 98 mg/dl (0-150); VLDL Cholesterol 20 mg/dl
[2020-11-04 07:29] LABS: Appearance Urine Clear (Clear); Bacteria Urine Automated 2+ (Negative); Bilirubin Urine Negative (Negative); Blood Urine Negative (Negative); Cast Urine Automated 0 /lpf (0-5); Color Urine Yellow; Epithelial Cell Urine Auto 0-5 /lpf (0-5); Glucose Urine UA Negative (Negative); Ketones Urine Negative (Negative); Leukocyte Esterase Urine 1+ (Negative); Nitrite Urine Positive (Negative); Protein Urine Negative (Negative); RBC Urine Automated 0-4 /hpf (0-4); Specific Gravity Urine 1.016 (1.000-1.030); Urobilinogen Urine Negative (Negative); pH Urine 5.5 (4.5-7.5)
[2020-11-04 07:38] LABS: Estimated Average Glucose 146 mg/dl; Hemoglobin A1C 6.7 % (4.5-5.6)
--- NOTE | 2020-11-04 08:11 | Critical Care Progress Note ---
Date of Service November 04, 2020 Assessment & Plan (1) Admitted to intensive care unit: Plan: Jere Borrego is a 70yo male admitted to [facility] on 11/04 with acute inferior STEMI s/p PTCI w/ DESx1 to the RCA requiring close hemodynamic monitoring in the ICU s/p coronary intervention. NEURO - * CAM ICU: NEGATIVE * Chronic spine pain: * Can restart home narcotics when clinically stable. CARDIAC/VASCULAR - * Acute Inferior STEMI s/p PTCI w/ JOO x1 to the RCA: * Clot burden to the distal RCA - Integrilin gtt continued until this AM per interventionalist. * Troponin peaked at 36.2 overnight * ASCVD Rx per typical. * TTE ordered - pending * Monitor on telemetry. RESPIRATORY - * No h/o pulmonary disease. * Saturating well on room air. GI/NUTRITION - * AHA Diet RENAL/LYTES - * LYUBOV likely due to contrast-induced injury. Resolved with IVFs, and patient has adequate PO intake. * Discontinued IVFs - * No concerns at this time. ENDO - * DMII * BSGs per unit protocol. ISS --> gtt per unit policy. HEME - * Stable H&H. * Monitor for s/s of bleeding s/p Heparin, Plavix, Integrilin ID - * No concerns for infection. LINES/IV ACCESS - * PIVs x2 DVT PROPHYLAXIS - * SCDs Disposition: Stable for downgrade out of ICU Thank you for allowing us to be part of this patient's care. Please refer to Dr. Wyatt's documentation for any further recommendations. (2) ST elevation (STEMI) myocardial infarction: (3) S/P PTCA (percutaneous transluminal coronary angioplasty): (4) S/P drug eluting coronary stent placement: (5) H/O malignant neoplasm of rectum: (6) Obstructive sleep apnea: (7) DM2 (diabetes mellitus, type 2): (8) Chronic lumbar pain: (9) Anxiety disorder: (10) Hypertension: Admission and Anticipated Discharge Date Admission Date: November 03, 2020 Supervising Physician Co-Signing Physician Notes Dr. Friedman was resident physician during care of patient. I separately evalu ated patient for carrion portions of the history and the exam. I was present during the critical portion of medical decision making, and I discussed the case with the resident. I generally agree with the findings and plan. Stable for downgrade out of ICU. Subjective No acute events overnight after PCI. Patient reports feeling well overall this morning. No chest pain, syncope/near-syncope, diaphoresis, palpitations. Eating/drinking well and slept well. Review of Systems Review of Systems: Denies fever/chills, SOB, cough, N/V, abdominal pain, rash. Physical Exam Physical Exam: General: A&Ox3. NAD. Cooperative. HEENT: Atraumatic, normocephalic. Pulm: CTAB A&P. -wheezes, -rales, -rhonchi. Symmetrical chest rise. No increase work of breathing. No respiratory distress. Cardiac: RRR, -mrg. Radial pulses intact and symmetrical. Abdominal: soft, non-tender, non-distended, BS x 4 Skin: warm, dry, no rash Results & Data Results & Data ([facility]) Vital Signs (Past 12 Hours) Vital Signs Temp Pulse Resp BP Pulse Ox 11/04/20 07:19 36.9 C 11/04/20 04:28 101 H 15 157/100 H 93 11/04/20 04:13 103 H 6 L 167/94 H 96 11/04/20 03:58 106 H 22 158/100 H 99 11/04/20 03:43 109 H 33 H 143/95 H 88 L 11/04/20 03:28 103 H 19 156/101 H 99 11/04/20 03:13 103 H 0 L 153/92 H 94 11/04/20 02:58 105 H 11 L 156/98 H 95 11/04/20 02:43 107 H 31 H 152/86 H 92 11/04/20 02:28 103 H 10 L 133/89 96 11/04/20 02:13 103 H 19 158/82 H 98 11/04/20 01:58 101 H 34 H 135/104 H 96 11/04/20 01:43 102 H 9 L 151/92 H 97 11/04/20 01:28 103 H 11 L 147/89 H 88 L 11/04/20 01:13 101 H 20 140/91 97 11/04/20 00:58 101 H 12 167/90 H 96 11/04/20 00:43 106 H 32 H 147/91 H 11/04/20 00:28 101 H 25 H 142/85 H 98 11/04/20 00:13 102 H 16 138/86 96 11/04/20 00:00 100 H 11/03/20 23:58 98 H 18 117/82 85 L 11/03/20 23:43 99 H 20 131/73 96 11/03/20 23:28 95 H 31 H 109/73 98 11/03/20 23:13 97 H 18 127/73 95 11/03/20 22:58 98 H 27 H 125/85 96 11/03/20 22:43 105 H 26 H 133/77 99 11/03/20 22:28 97 H 27 H 119/80 99 11/03/20 22:12 99 H 22 119/70 96 11/03/20 21:58 103 H 17 95/70 L 98 11/03/20 21:43 101 H 23 122/73 93 11/03/20 21:28 103 H 31 H 119/76 97 11/03/20 21:13 100 H 22 127/88 94 11/03/20 20:58 99 H 30 H 127/82 99 11/03/20 20:43 99 H 30 H 140/82 92 11/03/20 20:28 99 H 19 95/73 L 96 Resident Activity Tracking Resident Involvement: Resident Care Provided Care Provided: Adult Hospital Medicine (1) ST elevation (STEMI) myocardial infarction Involved coronary artery: right coronary artery Qualified Code(s): I21.11 - ST elevation (STEMI) myocardial infarction involving right coronary artery (2) Hypertension Hypertension type: essential hypertension Qualified Code(s): I10 - Essential (primary) hypertension
[2020-11-04] MEDS: PANTOprazole 40 MG TAB PO SCH (08:42)
[2020-11-04] MEDS: ATORVASTATIN 20 MG TAB PO SCH (08:42)
[2020-11-04] MEDS: GABAPENTIN 600 MG TAB PO SCH ×4 (08:42→20:56)
[2020-11-04] MEDS: ASPIRIN 81 MG ECTAB PO SCH (08:42)
[2020-11-04] MEDS: CLOPIDOGREL BISULFATE 75 MG TAB PO SCH (08:42)
[2020-11-04] MEDS: BACLOFEN 20 MG TAB PO SCH ×4 (08:42→20:56)
[2020-11-04] MEDS: METOPROLOL TARTRATE 25 MG TAB PO SCH ×2 (08:43→20:56)
--- NOTE | 2020-11-04 12:22 | XCELERA ---
[id number]
--- NOTE | 2020-11-04 15:42 | Cardiology Progress Note ---
Date of Service November 04, 2020 Assessment & Plan (1) ST elevation (STEMI) myocardial infarction: Plan: Post PCI to proximal to mid RCA with single JOO 2. Residual moderate LAD disease, branch vessel disease 3. Preserved LV function with inferior wall motion abnormalities 4. Mild RV dysfunction/dilation 5. Hypertension 6. Anemiastable 7. Hyponatremia 8. Borderline dilated aortic root Chest pain-free, troponins peaked. Hemodynamically and electrically stable Well-perfused without congestion on exam. Renal function, hemoglobin stable No access site complications. Continue DAPT with aspirin, clopidogrel add back low-dose lisinopril Increase metoprolol to 25 mg twice daily as BP allows Continue current statin From a cardiac standpoint okay with transition to telemetry today. Up walking halls as able. Potential discharge tomorrow. Admission and Anticipated Discharge Date Admission Date: November 03, 2020 Subjective Feeling well this morning. Denies any chest pain. No significant shortness of breath. Telemetry reviewedno significant events. Echo reviewedpreserved LV function, inferior wall motion abnormality. Mild RV dysfunction/dilation. No significant valvular pathology Review of Systems Review of Systems: All systems reviewed & are unremarkable except as noted in HPI & below Physical Exam Physical Exam: General: Comfortable HEENT: Sclerae anicteric Lungs: Clear to auscultation bilaterally Cardiac: Regular rate and rhythm, no murmurs. Vascular: Right radial artery access site with no ecchymosis, hematoma. Distal pulse and sensation intact. Abdomen: Soft, nontender Extremities: Well perfused, no peripheral edema Neuro: Nonfocal Psych: Alert orient x3, normal affect and mood Results & Data ([facility]) Vital Signs (Past 12 Hours) Vital Signs Temp Pulse Resp BP Pulse Ox 11/04/20 13:28 98 H 15 118/86 85 L 11/04/20 12:28 89 6 L 123/74 97 11/04/20 11:49 97.9 F 11/04/20 11:27 95 H 19 145/96 H 99 11/04/20 10:28 69 5 L 131/82 93 11/04/20 09:28 97 H 9 L 145/85 H 94 11/04/20 08:28 104 H 8 L 141/78 H 92 11/04/20 08:00 100 H 11/04/20 07:28 102 H 22 120/83 94 11/04/20 07:19 98.4 F 11/04/20 06:28 98 H 12 153/88 H 97 11/04/20 05:41 104 H 14 180/105 H 98 11/04/20 05:28 108 H 18 167/109 H 95 11/04/20 05:13 102 H 17 152/89 H 96 11/04/20 04:58 99 H 9 L 152/93 H 90 11/04/20 04:43 104 H 13 141/91 H 95 11/04/20 04:28 101 H 15 157/100 H 93 11/04/20 04:13 103 H 6 L 167/94 H 96 11/04/20 03:58 106 H 22 158/100 H 99 11/04/20 03:43 109 H 33 H 143/95 H 88 L PG Care Time/CCT Total # of Minutes Spent Total Time Spent with Patient: Total time spent is greater than 50% in coordination of care (as documented) at patient's floor/unit and/or counseling patient: Coding Level of Care Code 32220 Subseq Hosp Care Lvl [address] elevation (STEMI) myocardial infarction I21.11 Involved coronary artery: right coronary artery (1) ST elevation (STEMI) myocardial infarction Involved coronary artery: right coronary artery Qualified Code(s): I21.11 - ST elevation (STEMI) myocardial infarction involving right coronary artery
--- NOTE | 2020-11-04 16:20 | Hospitalist Progress Note ---
Date of Service November 04, 2020 Assessment & Plan (1) ST elevation (STEMI) myocardial infarction: Plan: 70yo male with history of HTN, HLP and DM presenting with inferior STEMI s/p cardiac catheterization with JOO x 1 to distal RCA Pt with ECHO with inferior WMAs, RV dysfunction moderate, preserved LVEF BNP elevated on admission but no evidence of volume overload, BPs stable and tolerating addition of low dose beta vaibhav, added back lower dose of ACEi Troponin peaked at 36 LDL 88 on lipid panel, DM well controlled Appreciate Cardiology management -continue ASA 81mg po daily -continue Plavix 75mg po daily -Atorvastatin 20mg po qAM with caution - patient with history of statin induced myopathy -continue Metoprolol 12.5mg po BID - titrate as tolerated up to 25mg bid (2) CAD (coronary artery disease), [place] coronary artery: Plan: as above (3) 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 -Hold Metformin add accuchecks, Novolog SSI (6) Hypertension: Plan: Patient with episode of hypotension during catheterization requiring brief treatment with pressors and IVF. Blood pressure has since improved. -Metoprolol 12.5mg po BID - increase as tolerated -Hold Amlodipine -restart Lisinopril at lower dose of 5mg daily (home dose 40mg) (7) Gastroesophageal reflux: Plan: Chronic. Stable -Continue Protonix 40mg po daily (8) Peripheral neuropathy: Plan: continue gabapentin (9) Chronic back pain: Plan: restart home Opana, oxycodone prn continue gabapentin has had cervical and lumbar spine fusion with Dr. So in [place] (10) Anemia: Plan: chronic, normocytic follow as outpt follow CBC here now that on DAPT (11) Colostomy in place: Plan: with good output, no issues (12) Hyponatremia: Plan: Na+ 128 on admission and now improved to 132 with IVFs with NS Was hypovolemic perhaps? follow BMP in AM (13) UTI (urinary tract infection): Plan: UA abnormal Ur cx pending start Rocephin 1 gram IV daily, follow Ur cx (14) Transaminitis: Plan: AST mildly elevated, perhaps from hypotension and liver injury follow LFTs in AM (15) Obstructive sleep apnea: Plan: noted in chart as a dx but no record of sleep study or mention of CPAP (16) DVT prophylaxis: Plan: ASA,Plavix, SCDs Dispo-continued stay but downgrade from ICU to PCU, possible dc to home tomorrow Plan: F/E/N - NSS at 150mL/hr x 1 liter. LVEDP of 12 in laborer salvage, Cv=146 - patient with chronic hyponatremia with baseline Na appx 130-135, AHA/CC diet as tolerated Ppx - ASA, Plavix. On Integrillin currently Code - Full Dispo - Admit to MICU for post-cardiac catheterization care Admission and Anticipated Discharge Date Admission Date: November 03, 2020 Subjective Pt reports feeling well. Denies CP or SOB, no abd pain, is eating and has ostomy output with stool. I discussed his care with the Print Designer Review of Systems Review of Systems: All systems reviewed & are unremarkable except as noted in HPI & below Physical Exam Constitutional: WD/WN, vitals as above Eyes: + anicteric sclerae Neck: trachea midline, no thyromegaly Respiratory: normal respiratory effort, lungs clear to auscultation Cardiovascular: RRR, no murmur, no edema Chest (Breasts): Chest: normal inspection of chest Gastrointestinal (Abdomen): normal bowel sounds, soft, nontender, no hepatosplenomegaly Musculoskeletal: Extremities: extremities normal to inspection; no cyanosis and no clubbing Skin: no rashes, warm and dry Neurologic: moves all extremities and awake; no focal motor deficits Psychiatric: A+Ox3, euthymic affect Lymphatic: no lymphedema Results & Data Results & Data ([facility]) Vital Signs (Past 12 Hours) Vital Signs Temp Pulse Resp BP Pulse Ox 11/04/20 15:37 36.3 C L 11/04/20 13:28 98 H 15 118/86 85 L 11/04/20 12:28 89 6 L 123/74 97 11/04/20 11:49 36.6 C 11/04/20 11:27 95 H 19 145/96 H 99 11/04/20 10:28 69 5 L 131/82 93 11/04/20 09:28 97 H 9 L 145/85 H 94 11/04/20 08:28 104 H 8 L 141/78 H 92 11/04/20 08:00 100 H 11/04/20 07:28 102 H 22 120/83 94 11/04/20 07:19 36.9 C 11/04/20 06:28 98 H 12 153/88 H 97 11/04/20 05:41 104 H 14 180/105 H 98 11/04/20 05:28 108 H 18 167/109 H 95 11/04/20 05:13 102 H 17 152/89 H 96 11/04/20 04:58 99 H 9 L 152/93 H 90 11/04/20 04:43 104 H 13 141/91 H 95 11/04/20 04:28 101 H 15 157/100 H 93 Laboratory Results 11/04/20 11/04/20 11/04/20 Range/Units Unknown Unknown 11:36 WBC (4.8-10.8) K/uL RBC (4.7-6.1) M/uL Hgb (14.0-18.0) g/dL POC Hgb (14.0-18.0) g/dl Hct (42-52) % POC Hct (42-52) % MCV (80-100) fL MCH (25-34) pg MCHC (32-36) g/dL RDW Std Deviation (36.4-46.3) fL RDW Coeff of Arturo (11.5-14.5) % Plt Count (130-400) K/uL MPV (7.4-10.4) fL Immature Gran % (Auto) % Neut % (Auto) % Lymph % (Auto) % [place] % (Auto) % Eos % (Auto) % Baso % (Auto) % Neut # (Auto) (1.4-6.5) K/uL Lymph # (Auto) (1.2-3.4) K/uL [place] # (Auto) (0.11-0.59) K/uL Eos # (Auto) (0-0.5) K/uL Baso # (Auto) (0-0.2) K/uL Immature Gran # (Auto) (0.00-0.02) K/uL PT (9.0-12.0) Seconds INR (0.9-1.1) APTT (21.0-31.0) Seconds PTT Ratio Activ Coag Time Kaolin (94-140) SECONDS POC Sodium (135-144) mmol/L Sodium (136-145) mmol/L POC Potassium (3.3-5.0) mmol/L Potassium (3.5-5.1) mmol/L POC Chloride (101-112) mmol/L Chloride (98-107) mmol/L Carbon Dioxide (21-32) mmol/L POC Total CO2 (24-31) mmol/L Anion Gap (3-11) POC Anion Gap (16-25) mmol/L POC BUN (7-18) mg/dl BUN (7-18) mg/dl Creatinine (0.6-1.4) mg/dl POC Creatinine (0.6-1.3) mg/dl Est Cr Clr Drug Dosing ml/min Est GFR ( Amer) ml/min Est GFR (Non-Af Amer) ml/min BUN/Creatinine Ratio (10-20) Glucose (70-99) mg/dl POC Glucose 123 H (70-99) mg/dl POC Glucose (other) (70-99) mg/dl Estimat Average Glucose mg/dl Hemoglobin A1c (4.5-5.6) % Calcium (8.5-10.1) mg/dl POC Ioniz Calcium Bre (1.12-1.32) mmol/l Magnesium (1.8-2.4) mg/dl Total Bilirubin (0.2-1) mg/dl AST (15-37) U/L ALT (12-78) U/L Alkaline Phosphatase (45-117) U/L Total Creatine Kinase (39-308) U/L CK-MB (CK-2) (0.5-3.6) ng/ml CK/CKMB % Calc (0-3.0) Troponin I (0-0.045) ng/ml NT-Pro-B Natriuret Pep (0-900) pg/ml Total Protein (6.4-8.2) gm/dl Albumin (3.4-5.0) gm/dl Globulin (2.5-4.0) gm/dl Albumin/Globulin Ratio (0.9-2) Triglycerides (0-150) mg/dl Cholesterol (0-200) mg/dl LDL Cholesterol Direct mg/dl LDL Cholesterol, Calc VLDL Cholesterol, Calc mg/dl HDL Cholesterol mg/dl Cholesterol/HDL Ratio Lipase (73-393) U/L TSH (0.300-4.500) uIu/ml Urine Color Yellow Urine Appearance Clear (Clear) Urine pH 5.5 (4.5-7.5) Ur Specific [place] 1.016 (1.000-1.030) Urine Protein Negative (Negative) Urine Glucose (UA) Negative (Negative) Urine Ketones Negative (Negative) Urine Blood Negative (Negative) Urine Nitrite Positive A (Negative) Urine Bilirubin Negative (Negative) Urine Urobilinogen Negative (Negative) Ur Leukocyte Esterase 1+ H (Negative) Urine WBC (Auto) 10-30 H (0-5) /hpf Urine RBC (Auto) 0-4 (0-4) /hpf U Hyaline Cast (Auto) 0 (0-5) /lpf U Epithel Cells (Auto) 0-5 (0-5) /lpf Urine Bacteria (Auto) 2+ H (Negative) Nasal Screen MRSA (PCR) Negative (Negative) COVID-19 Eval Order SARS-CoV-2 (PCR) (Negative) 11/04/20 11/04/20 11/04/20 Range/Units 07:29 07:28 04:43 WBC (4.8-10.8) K/uL RBC (4.7-6.1) M/uL Hgb (14.0-18.0) g/dL POC Hgb (14.0-18.0) g/dl Hct (42-52) % POC Hct (42-52) % MCV (80-100) fL MCH (25-34) pg MCHC (32-36) g/dL RDW Std Deviation (36.4-46.3) fL RDW Coeff of Arturo (11.5-14.5) % Plt Count (130-400) K/uL MPV (7.4-10.4) fL Immature Gran % (Auto) % Neut % (Auto) % Lymph % (Auto) % [place] % (Auto) % Eos % (Auto) % Baso % (Auto) % Neut # (Auto) (1.4-6.5) K/uL Lymph # (Auto) (1.2-3.4) K/uL [place] # (Auto) (0.11-0.59) K/uL Eos # (Auto) (0-0.5) K/uL Baso # (Auto) (0-0.2) K/uL Immature Gran # (Auto) (0.00-0.02) K/uL PT (9.0-12.0) Seconds INR (0.9-1.1) APTT (21.0-31.0) Seconds PTT Ratio Activ Coag Time Kaolin (94-140) SECONDS POC Sodium (135-144) mmol/L Sodium (136-145) mmol/L POC Potassium (3.3-5.0) mmol/L Potassium (3.5-5.1) mmol/L POC Chloride (101-112) mmol/L Chloride (98-107) mmol/L Carbon Dioxide (21-32) mmol/L POC Total CO2 (24-31) mmol/L Anion Gap (3-11) POC Anion Gap (16-25) mmol/L POC BUN (7-18) mg/dl BUN (7-18) mg/dl Creatinine (0.6-1.4) mg/dl POC Creatinine (0.6-1.3) mg/dl Est Cr Clr Drug Dosing ml/min Est GFR ( Amer) ml/min Est GFR (Non-Af Amer) ml/min BUN/Creatinine Ratio (10-20) Glucose (70-99) mg/dl POC Glucose 118 H (70-99) mg/dl POC Glucose (other) (70-99) mg/dl Estimat Average Glucose 146 mg/dl Hemoglobin A1c 6.7 H (4.5-5.6) % Calcium (8.5-10.1) mg/dl POC Ioniz Calcium Bre (1.12-1.32) mmol/l Magnesium (1.8-2.4) mg/dl Total Bilirubin (0.2-1) mg/dl AST (15-37) U/L ALT (12-78) U/L Alkaline Phosphatase (45-117) U/L Total Creatine Kinase (39-308) U/L CK-MB (CK-2) (0.5-3.6) ng/ml CK/CKMB % Calc (0-3.0) Troponin I 28.000 H* (0-0.045) ng/ml NT-Pro-B Natriuret Pep (0-900) pg/ml Total Protein (6.4-8.2) gm/dl Albumin (3.4-5.0) gm/dl Globulin (2.5-4.0) gm/dl Albumin/Globulin Ratio (0.9-2) Triglycerides (0-150) mg/dl Cholesterol (0-200) mg/dl LDL Cholesterol Direct mg/dl LDL Cholesterol, Calc VLDL Cholesterol, Calc mg/dl HDL Cholesterol mg/dl Cholesterol/HDL Ratio Lipase (73-393) U/L TSH (0.300-4.500) uIu/ml Urine Color Urine Appearance (Clear) Urine pH (4.5-7.5) Ur Specific [place] (1.000-1.030) Urine Protein (Negative) Urine Glucose (UA) (Negative) Urine Ketones (Negative) Urine Blood (Negative) Urine Nitrite (Negative) Urine Bilirubin (Negative) Urine Urobilinogen (Negative) Ur Leukocyte Esterase (Negative) Urine WBC (Auto) (0-5) /hpf Urine RBC (Auto) (0-4) /hpf U Hyaline Cast (Auto) (0-5) /lpf U Epithel Cells (Auto) (0-5) /lpf Urine Bacteria (Auto) (Negative) Nasal Screen MRSA (PCR) (Negative) COVID-19 Eval Order SARS-CoV-2 (PCR) (Negative) 11/04/20 11/04/20 11/04/20 Range/Units 04:43 04:43 01:37 WBC 7.83 (4.8-10.8) K/uL RBC 3.99 L (4.7-6.1) M/uL Hgb 12.0 L (14.0-18.0) g/dL POC Hgb (14.0-18.0) g/dl Hct 35.6 L (42-52) % POC Hct (42-52) % MCV 89.2 (80-100) fL MCH 30.1 (25-34) pg MCHC 33.7 (32-36) g/dL RDW Std Deviation 40.2 (36.4-46.3) fL RDW Coeff of Arturo 12.3 (11.5-14.5) % Plt Count 184 (130-400) K/uL MPV 9.6 (7.4-10.4) fL Immature Gran % (Auto) 0.5 % Neut % (Auto) 76.7 % Lymph % (Auto) 8.8 % [place] % (Auto) 13.8 % Eos % (Auto) 0.1 % Baso % (Auto) 0.1 % Neut # (Auto) 6.00 (1.4-6.5) K/uL Lymph # (Auto) 0.69 L (1.2-3.4) K/uL [place] # (Auto) 1.08 H (0.11-0.59) K/uL Eos # (Auto) 0.01 (0-0.5) K/uL Baso # (Auto) 0.01 (0-0.2) K/uL Immature Gran # (Auto) 0.04 H (0.00-0.02) K/uL PT (9.0-12.0) Seconds INR (0.9-1.1) APTT (21.0-31.0) Seconds PTT Ratio Activ Coag Time Kaolin (94-140) SECONDS POC Sodium (135-144) mmol/L Sodium 132 L (136-145) mmol/L POC Potassium (3.3-5.0) mmol/L Potassium 4.1 D (3.5-5.1) mmol/L POC Chloride (101-112) mmol/L Chloride 99 (98-107) mmol/L Carbon Dioxide 26 (21-32) mmol/L POC Total CO2 (24-31) mmol/L Anion Gap 7.0 (3-11) POC Anion Gap (16-25) mmol/L POC BUN (7-18) mg/dl BUN 13 (7-18) mg/dl Creatinine 1.13 D (0.6-1.4) mg/dl POC Creatinine (0.6-1.3) mg/dl Est Cr Clr Drug Dosing 63.9 ml/min Est GFR ( Amer) 75.4 ml/min Est GFR (Non-Af Amer) 65.0 ml/min BUN/Creatinine Ratio 11.7 (10-20) Glucose 120 H (70-99) mg/dl POC Glucose (70-99) mg/dl POC Glucose (other) (70-99) mg/dl Estimat Average Glucose mg/dl Hemoglobin A1c (4.5-5.6) % Calcium 8.3 L (8.5-10.1) mg/dl POC Ioniz Calcium Bre (1.12-1.32) mmol/l Magnesium (1.8-2.4) mg/dl Total Bilirubin (0.2-1) mg/dl AST (15-37) U/L ALT (12-78) U/L Alkaline Phosphatase (45-117) U/L Total Creatine Kinase (39-308) U/L CK-MB (CK-2) (0.5-3.6) ng/ml CK/CKMB % Calc (0-3.0) Troponin I 36.200 H* (0-0.045) ng/ml NT-Pro-B Natriuret Pep (0-900) pg/ml Total Protein (6.4-8.2) gm/dl Albumin (3.4-5.0) gm/dl Globulin (2.5-4.0) gm/dl Albumin/Globulin Ratio (0.9-2) Triglycerides 98 (0-150) mg/dl Cholesterol 161 (0-200) mg/dl LDL Cholesterol Direct 88 mg/dl LDL Cholesterol, Calc Not Reportable VLDL Cholesterol, Calc 20 mg/dl HDL Cholesterol 47 mg/dl Cholesterol/HDL Ratio 3 Lipase (73-393) U/L TSH (0.300-4.500) uIu/ml Urine Color Urine Appearance (Clear) Urine pH (4.5-7.5) Ur Specific [place] (1.000-1.030) Urine Protein (Negative) Urine Glucose (UA) (Negative) Urine Ketones (Negative) Urine Blood (Negative) Urine Nitrite (Negative) Urine Bilirubin (Negative) Urine Urobilinogen (Negative) Ur Leukocyte Esterase (Negative) Urine WBC (Auto) (0-5) /hpf Urine RBC (Auto) (0-4) /hpf U Hyaline Cast (Auto) (0-5) /lpf U Epithel Cells (Auto) (0-5) /lpf Urine Bacteria (Auto) (Negative) Nasal Screen MRSA (PCR) (Negative) COVID-19 Eval Order SARS-CoV-2 (PCR) (Negative) 11/03/20 11/03/20 11/03/20 Range/Units 19:53 19:09 18:48 WBC (4.8-10.8) K/uL RBC (4.7-6.1) M/uL Hgb (14.0-18.0) g/dL POC Hgb (14.0-18.0) g/dl Hct (42-52) % POC Hct (42-52) % MCV (80-100) fL MCH (25-34) pg MCHC (32-36) g/dL RDW Std Deviation (36.4-46.3) fL RDW Coeff of Arturo (11.5-14.5) % Plt Count (130-400) K/uL MPV (7.4-10.4) fL Immature Gran % (Auto) % Neut % (Auto) % Lymph % (Auto) % [place] % (Auto) % Eos % (Auto) % Baso % (Auto) % Neut # (Auto) (1.4-6.5) K/uL Lymph # (Auto) (1.2-3.4) K/uL [place] # (Auto) (0.11-0.59) K/uL Eos # (Auto) (0-0.5) K/uL Baso # (Auto) (0-0.2) K/uL Immature Gran # (Auto) (0.00-0.02) K/uL PT (9.0-12.0) Seconds INR (0.9-1.1) APTT (21.0-31.0) Seconds PTT Ratio Activ Coag Time Kaolin 307 H 230 H (94-140) SECONDS POC Sodium (135-144) mmol/L Sodium (136-145) mmol/L POC Potassium (3.3-5.0) mmol/L Potassium (3.5-5.1) mmol/L POC Chloride (101-112) mmol/L Chloride (98-107) mmol/L Carbon Dioxide (21-32) mmol/L POC Total CO2 (24-31) mmol/L Anion Gap (3-11) POC Anion Gap (16-25) mmol/L POC BUN (7-18) mg/dl BUN (7-18) mg/dl Creatinine (0.6-1.4) mg/dl POC Creatinine (0.6-1.3) mg/dl Est Cr Clr Drug Dosing ml/min Est GFR ( Amer) ml/min Est GFR (Non-Af Amer) ml/min BUN/Creatinine Ratio (10-20) Glucose (70-99) mg/dl POC Glucose 171 H (70-99) mg/dl POC Glucose (other) (70-99) mg/dl Estimat Average Glucose mg/dl Hemoglobin A1c (4.5-5.6) % Calcium (8.5-10.1) mg/dl POC Ioniz Calcium Bre (1.12-1.32) mmol/l Magnesium (1.8-2.4) mg/dl Total Bilirubin (0.2-1) mg/dl AST (15-37) U/L ALT (12-78) U/L Alkaline Phosphatase (45-117) U/L Total Creatine Kinase (39-308) U/L CK-MB (CK-2) (0.5-3.6) ng/ml CK/CKMB % Calc (0-3.0) Troponin I (0-0.045) ng/ml NT-Pro-B Natriuret Pep (0-900) pg/ml Total Protein (6.4-8.2) gm/dl Albumin (3.4-5.0) gm/dl Globulin (2.5-4.0) gm/dl Albumin/Globulin Ratio (0.9-2) Triglycerides (0-150) mg/dl Cholesterol (0-200) mg/dl LDL Cholesterol Direct mg/dl LDL Cholesterol, Calc VLDL Cholesterol, Calc mg/dl HDL Cholesterol mg/dl Cholesterol/HDL Ratio Lipase (73-393) U/L TSH (0.300-4.500) uIu/ml Urine Color Urine Appearance (Clear) Urine pH (4.5-7.5) Ur Specific [place] (1.000-1.030) Urine Protein (Negative) Urine Glucose (UA) (Negative) Urine Ketones (Negative) Urine Blood (Negative) Urine Nitrite (Negative) Urine Bilirubin (Negative) Urine Urobilinogen (Negative) Ur Leukocyte Esterase (Negative) Urine WBC (Auto) (0-5) /hpf Urine RBC (Auto) (0-4) /hpf U Hyaline Cast (Auto) (0-5) /lpf U Epithel Cells (Auto) (0-5) /lpf Urine Bacteria (Auto) (Negative) Nasal Screen MRSA (PCR) (Negative) COVID-19 Eval Order SARS-CoV-2 (PCR) (Negative) 11/03/20 11/03/20 11/03/20 Range/Units 18:14 18:10 18:10 WBC (4.8-10.8) K/uL RBC (4.7-6.1) M/uL Hgb (14.0-18.0) g/dL POC Hgb 11.6 L (14.0-18.0) g/dl Hct (42-52) % POC Hct 34 L (42-52) % MCV (80-100) fL MCH (25-34) pg MCHC (32-36) g/dL RDW Std Deviation (36.4-46.3) fL RDW Coeff of Arturo (11.5-14.5) % Plt Count (130-400) K/uL MPV (7.4-10.4) fL Immature Gran % (Auto) % Neut % (Auto) % Lymph % (Auto) % [place] % (Auto) % Eos % (Auto) % Baso % (Auto) % Neut # (Auto) (1.4-6.5) K/uL Lymph # (Auto) (1.2-3.4) K/uL [place] # (Auto) (0.11-0.59) K/uL Eos # (Auto) (0-0.5) K/uL Baso # (Auto) (0-0.2) K/uL Immature Gran # (Auto) (0.00-0.02) K/uL PT (9.0-12.0) Seconds INR (0.9-1.1) APTT (21.0-31.0) Seconds PTT Ratio Activ Coag Time Kaolin (94-140) SECONDS POC Sodium 128 L (135-144) mmol/L Sodium (136-145) mmol/L POC Potassium 4.9 (3.3-5.0) mmol/L Potassium (3.5-5.1) mmol/L POC Chloride 92 L (101-112) mmol/L Chloride (98-107) mmol/L Carbon Dioxide (21-32) mmol/L POC Total CO2 22 L (24-31) mmol/L Anion Gap (3-11) POC Anion Gap 19.0 (16-25) mmol/L POC BUN 14 (7-18) mg/dl BUN (7-18) mg/dl Creatinine (0.6-1.4) mg/dl POC Creatinine 1.7 H (0.6-1.3) mg/dl Est Cr Clr Drug Dosing ml/min Est GFR ( Amer) ml/min Est GFR (Non-Af Amer) ml/min BUN/Creatinine Ratio (10-20) Glucose (70-99) mg/dl POC Glucose (70-99) mg/dl POC Glucose (other) 236 H (70-99) mg/dl Estimat Average Glucose mg/dl Hemoglobin A1c (4.5-5.6) % Calcium (8.5-10.1) mg/dl POC Ioniz Calcium Bre 1.09 L (1.12-1.32) mmol/l Magnesium (1.8-2.4) mg/dl Total Bilirubin (0.2-1) mg/dl AST (15-37) U/L ALT (12-78) U/L Alkaline Phosphatase (45-117) U/L Total Creatine Kinase (39-308) U/L CK-MB (CK-2) (0.5-3.6) ng/ml CK/CKMB % Calc (0-3.0) Troponin I (0-0.045) ng/ml NT-Pro-B Natriuret Pep (0-900) pg/ml Total Protein (6.4-8.2) gm/dl Albumin (3.4-5.0) gm/dl Globulin (2.5-4.0) gm/dl Albumin/Globulin Ratio (0.9-2) Triglycerides (0-150) mg/dl Cholesterol (0-200) mg/dl LDL Cholesterol Direct mg/dl LDL Cholesterol, Calc VLDL Cholesterol, Calc mg/dl HDL Cholesterol mg/dl Cholesterol/HDL Ratio Lipase (73-393) U/L TSH (0.300-4.500) uIu/ml Urine Color Urine Appearance (Clear) Urine pH (4.5-7.5) Ur Specific [place] (1.000-1.030) Urine Protein (Negative) Urine Glucose (UA) (Negative) Urine Ketones (Negative) Urine Blood (Negative) Urine Nitrite (Negative) Urine Bilirubin (Negative) Urine Urobilinogen (Negative) Ur Leukocyte Esterase (Negative) Urine WBC (Auto) (0-5) /hpf Urine RBC (Auto) (0-4) /hpf U Hyaline Cast (Auto) (0-5) /lpf U Epithel Cells (Auto) (0-5) /lpf Urine Bacteria (Auto) (Negative) Nasal Screen MRSA (PCR) (Negative) COVID-19 Eval Order Covid19 at [facility] SARS-CoV-2 (PCR) NEGATIVE (Negative) 11/03/20 11/03/20 11/03/20 Range/Units 18:09 18:09 18:09 WBC 11.80 H (4.8-10.8) K/uL RBC 3.79 L (4.7-6.1) M/uL Hgb 11.3 L (14.0-18.0) g/dL POC Hgb (14.0-18.0) g/dl Hct 33.4 L (42-52) % POC Hct (42-52) % MCV 88.1 (80-100) fL MCH 29.8 (25-34) pg MCHC 33.8 (32-36) g/dL RDW Std Deviation 39.7 (36.4-46.3) fL RDW Coeff of Arturo 12.3 (11.5-14.5) % Plt Count 265 (130-400) K/uL MPV 9.6 (7.4-10.4) fL Immature Gran % (Auto) 0.8 % Neut % (Auto) 80.9 % Lymph % (Auto) 9.1 % [place] % (Auto) 8.9 % Eos % (Auto) 0.2 % Baso % (Auto) 0.1 % Neut # (Auto) 9.56 H (1.4-6.5) K/uL Lymph # (Auto) 1.07 L (1.2-3.4) K/uL [place] # (Auto) 1.05 H (0.11-0.59) K/uL Eos # (Auto) 0.02 (0-0.5) K/uL Baso # (Auto) 0.01 (0-0.2) K/uL Immature Gran # (Auto) 0.09 H (0.00-0.02) K/uL PT 10.4 (9.0-12.0) Seconds INR 1.0 (0.9-1.1) APTT 25.4 (21.0-31.0) Seconds PTT Ratio 1.0 Activ Coag Time Kaolin (94-140) SECONDS POC Sodium (135-144) mmol/L Sodium 129 L (136-145) mmol/L POC Potassium (3.3-5.0) mmol/L Potassium 4.9 (3.5-5.1) mmol/L POC Chloride (101-112) mmol/L Chloride 95 L (98-107) mmol/L Carbon Dioxide 23 (21-32) mmol/L POC Total CO2 (24-31) mmol/L Anion Gap 11.0 (3-11) POC Anion Gap (16-25) mmol/L POC BUN (7-18) mg/dl BUN 13 (7-18) mg/dl Creatinine 1.70 H (0.6-1.4) mg/dl POC Creatinine (0.6-1.3) mg/dl Est Cr Clr Drug Dosing 42.4 ml/min Est GFR ( Amer) 46.0 ml/min Est GFR (Non-Af Amer) 39.7 ml/min BUN/Creatinine Ratio 7.7 L (10-20) Glucose 228 H (70-99) mg/dl POC Glucose (70-99) mg/dl POC Glucose (other) (70-99) mg/dl Estimat Average Glucose mg/dl Hemoglobin A1c (4.5-5.6) % Calcium 8.3 L (8.5-10.1) mg/dl POC Ioniz Calcium Bre (1.12-1.32) mmol/l Magnesium 1.8 (1.8-2.4) mg/dl Total Bilirubin 0.7 (0.2-1) mg/dl AST 78 H (15-37) U/L ALT 31 (12-78) U/L Alkaline Phosphatase 86 (45-117) U/L Total Creatine Kinase 359 H (39-308) U/L CK-MB (CK-2) 20.5 H (0.5-3.6) ng/ml CK/CKMB % Calc 5.7 H (0-3.0) Troponin I 10.600 H* (0-0.045) ng/ml NT-Pro-B Natriuret Pep 6190 H (0-900) pg/ml Total Protein 7.3 (6.4-8.2) gm/dl Albumin 3.4 (3.4-5.0) gm/dl Globulin 3.9 (2.5-4.0) gm/dl Albumin/Globulin Ratio 0.9 (0.9-2) Triglycerides (0-150) mg/dl Cholesterol (0-200) mg/dl LDL Cholesterol Direct mg/dl LDL Cholesterol, Calc VLDL Cholesterol, Calc mg/dl HDL Cholesterol mg/dl Cholesterol/HDL Ratio Lipase 136 (73-393) U/L TSH 1.040 (0.300-4.500) uIu/ml Urine Color Urine Appearance (Clear) Urine pH (4.5-7.5) Ur Specific [place] (1.000-1.030) Urine Protein (Negative) Urine Glucose (UA) (Negative) Urine Ketones (Negative) Urine Blood (Negative) Urine Nitrite (Negative) Urine Bilirubin (Negative) Urine Urobilinogen (Negative) Ur Leukocyte Esterase (Negative) Urine WBC (Auto) (0-5) /hpf Urine RBC (Auto) (0-4) /hpf U Hyaline Cast (Auto) (0-5) /lpf U Epithel Cells (Auto) (0-5) /lpf Urine Bacteria (Auto) (Negative) Nasal Screen MRSA (PCR) (Negative) COVID-19 Eval Order SARS-CoV-2 (PCR) (Negative) PG Care Time/CCT Total # of Minutes Spent Total Time Spent with Patient: Total time spent is greater than 50% in coordination of care (as documented) at patient's floor/unit and/or counseling patient: Coding Level of Care Code 10538 Subseq Hosp Care Lvl [address] elevation (STEMI) myocardial infarction I21.11 Involved coronary artery: right coronary artery BPH with obstruction/lower urinary tract symptoms N40.1; N13.8 DM2 (diabetes mellitus, type 2) E11.9 Hypertension I10 Hypertension type: essential hypertension Gastroesophageal reflux K21.9 Peripheral neuropathy G62.9 Chronic back pain M54.5; G89.29 Back pain location: low back pain Back pain laterality: midline Sciatica presence: without sciatica Obstructive sleep apnea G47.33 Anemia D64.[address] Z93.3 Hyponatremia E87.1 LYUBOV (acute kidney injury) N17.9 UTI (urinary tract infection) N39.0 Transaminitis R74.01 DVT prophylaxis Z29.9 CAD (coronary artery disease), [place] coronary artery I25.10 (1) ST elevation (STEMI) myocardial infarction Involved coronary artery: right coronary artery Qualified Code(s): I21.11 - ST elevation (STEMI) myocardial infarction involving right coronary artery (2) Hypertension Hypertension type: essential hypertension Qualified Code(s): I10 - Essential (primary) hypertension (3) Chronic back pain Back pain location: low back pain Back pain laterality: midline Sciatica presence: without sciatica Qualified Code(s): M54.5 - Low back pain; G89.29 - Other chronic pain
[2020-11-04] MEDS: lisinopril 5 MG TAB PO SCH (16:45)
[2020-11-04] MEDS ORDERED: cefTRIAXone SODIUM 1,000 MG in DEXTROSE 5% 50 ML IV SCH (18:00)
[2020-11-04] MEDS ORDERED: CARBOHYDRATES FOR HYPOGLYCEMIA PO PRN (19:20)
[2020-11-04] MEDS ORDERED: GLUCAGON FOR INJ 1 MG VIAL SQ PRN (19:20)
[2020-11-04] MEDS ORDERED: DEXTROSE 50% 50 ML SYRINGE IV PRN (19:20)
[2020-11-04] MEDS ORDERED: GLUCOSE 40% GEL 15 GM TUBE PO PRN (19:20)
[2020-11-04] MEDS ORDERED: GLUCOSE 10 TABS/TUBE PO PRN (19:20)
[2020-11-04] MEDS: INSULIN ASPART 100 UNITS/ML 3 ML PEN SC SCH ×2 (20:52→21:46)
[2020-11-04] MEDS: oxyCODONE HCL IR 5 MG TAB (IMMEDIATE RELEASE) PO SCH (20:53)
[2020-11-04] MEDS ORDERED: TAMSULOSIN HCL 0.4 MG CAP PO SCH (21:00)
[2020-11-05] MEDS: oxyCODONE HCL IR 5 MG TAB (IMMEDIATE RELEASE) PO SCH ×4 (00:20→12:19)
[2020-11-05 05:32] LABS: Basophils # (auto) 0.01 K/uL (0-0.2); Basophils % (auto) 0.1 %; Eosinophils # (auto) 0.01 K/uL (0-0.5); Eosinophils % (auto) 0.1 %; Hematocrit (blood only) 31.7 % (42-52); Hemoglobin 10.8 g/dL (14.0-18.0); Immature Granulocytes # (auto) 0.03 K/uL (0.00-0.02); Immature Granulocytes % (auto) 0.4 %; Lymphocytes # (auto) 0.62 K/uL (1.2-3.4); Mean Corpuscular Hemoglobin 30.1 pg (25-34); Mean Corpuscular Hgb Conc 34.1 g/dL (32-36); Mean Corpuscular Volume 88.3 fL (80-100); Mean Platelet Volume 9.8 fL (7.4-10.4); Monocytes # (auto) 0.65 K/uL (0.11-0.59); Monocytes % (auto) 9.5 %; Neutrophils # (auto) 5.55 K/uL (1.4-6.5); Neutrophils % (auto) 80.9 %; Platelet Count 187 K/uL (130-400); RDW Standard Deviation 39.1 fL (36.4-46.3); Red Blood Count 3.59 M/uL (4.7-6.1); White Blood Count 6.87 K/uL (4.8-10.8)
[2020-11-05 06:02] LABS: BUN Creatinine Ratio 18.3 (10-20); Calcium 8.7 mg/dl (8.5-10.1); Est GFR (African American) 103.1 ml/min; Magnesium 1.9 mg/dl (1.8-2.4); Potassium 4.2 mmol/L (3.5-5.1)
[2020-11-05] MEDS: ATORVASTATIN 20 MG TAB PO SCH (07:58)
[2020-11-05] MEDS: METOPROLOL TARTRATE 25 MG TAB PO SCH (07:59)
[2020-11-05] MEDS: CLOPIDOGREL BISULFATE 75 MG TAB PO SCH (07:59)
[2020-11-05] MEDS: ASPIRIN 81 MG ECTAB PO SCH (07:59)
[2020-11-05] MEDS: GABAPENTIN 600 MG TAB PO SCH ×2 (07:59→12:18)
[2020-11-05] MEDS: PANTOprazole 40 MG TAB PO SCH (07:59)
[2020-11-05] MEDS: BACLOFEN 20 MG TAB PO SCH ×2 (07:59→12:18)
[2020-11-05] MEDS: lisinopril 5 MG TAB PO SCH (07:59)
[2020-11-05] MEDS: INSULIN ASPART 100 UNITS/ML 3 ML PEN SC SCH ×2 (08:00→12:18)
--- NOTE | 2020-11-05 08:27 | Cardiology Progress Note ---
Date of Service November 05, 2020 Assessment & Plan (1) ST elevation (STEMI) myocardial infarction: Plan: Post PCI to proximal to mid RCA with single JOO 2. Residual moderate LAD disease, branch vessel disease 3. Preserved LV function with inferior wall motion abnormalities 4. Mild RV dysfunction/dilation 5. Hypertension 6. Anemiastable 7. Hyponatremia--improved 8. Borderline dilated aortic root 9. Possible UTI Chest pain-free Hemodynamically and electrically stable No heart failure on exam. No access site complications. Continue DAPT with aspirin, clopidogrel Increase metoprolol to 25 mg twice daily -- Continue lisinopril, statin Up out of bed today. Ok with discharge from a cardiac standpoint later today. Follow-up with me in 2 weeks. Admission and Anticipated Discharge Date Admission Date: November 03, 2020 Subjective Feeling well this morning. No chest pain or dyspnea. Tele reviewed - sinus in low 100s. no events. Review of Systems Review of Systems: All systems reviewed & are unremarkable except as noted in HPI & below Physical Exam Physical Exam: General: Comfortable HEENT: Sclerae anicteric Lungs: Clear to auscultation bilaterally Cardiac: Regular rate and rhythm, no murmurs. Vascular: Right radial artery access site with no ecchymosis, hematoma. Distal pulse and sensation intact. Abdomen: Soft, nontender Extremities: Well perfused, no peripheral edema Neuro: Nonfocal Psych: Alert orient x3, normal affect and mood Results & Data ([facility]) Vital Signs (Past 12 Hours) Vital Signs Pulse Resp BP Pulse Ox 11/05/20 01:55 106 H 14 97 11/05/20 00:28 81 9 L 145/80 H 96 11/05/20 00:00 88 11/04/20 23:28 91 H 31 H 138/88 98 11/04/20 22:28 69 27 H 144/96 H 98 11/04/20 21:28 99 H 16 148/97 H 95 11/04/20 20:28 96 H 28 H 145/88 H 97 PG Care Time/CCT Total # of Minutes Spent Total Time Spent with Patient: Total time spent is greater than 50% in coordination of care (as documented) at patient's floor/unit and/or counseling patient: Coding Level of Care Code 53155 Subseq Hosp Care Lvl [address] elevation (STEMI) myocardial infarction I21.11 Involved coronary artery: right coronary artery (1) ST elevation (STEMI) myocardial infarction Involved coronary artery: right coronary artery Qualified Code(s): I21.11 - ST elevation (STEMI) myocardial infarction involving right coronary artery
[2020-11-05] MEDS ORDERED: METOPROLOL TARTRATE 25 MG TAB PO SCH (09:00)
--- NOTE | 2020-11-05 12:25 | Discharge Summary ---
Date of Service November 05, 2020 Admission HPI Per Admitting Provider Jere Borrego is a 70yo male with history of DM, HTN presenting from home with inferior STEMI. He reports some mild chest pain several days ago but no chest pain today. He was in his usual state of health today. He was getting groceries this afternoon and states that he felt a bit "off". He became confused on the drive home and almost got lost. When he got home he stumbled and fell in his home. His states that he was minimally responsive. She helped him to a chair and dialed 911. Patient had a syncopal event witnessed by EMS. Inferior ST elevations noted on transfer. He was administered ASA 324mg en route. 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 He was found to have 100% proximal occlusion of the RCA as well as non-occlusive disease of LAD, Ramus, OM2 and OM3. Patient had aspiration thrombectomy and placement of JOO. He was administered IC Integrillin and vasodilators. Still with residual thrombus present in very distal portion of the PDA. He had transient cardiogenic shock requiring brief treatment with vasopressors and IVF. Blood pressure improved. He was admitted to MICU post-catheterization. Presently with no complaints. Specifically denies chest pain, tightness, dyspnea, palpitations. No additional complaints at this time. Principal Diagnosis STEMI, UTI Discharge Exam Constitutional WD/WN, vitals as above Eyes + anicteric sclerae Neck trachea midline, no thyromegaly Respiratory normal respiratory effort, lungs clear to auscultation Cardiovascular RRR, no murmur, no edema Chest (Breasts) Chest: normal inspection of chest Gastrointestinal (Abdomen) normal bowel sounds, soft, nontender, no hepatosplenomegaly Musculoskeletal Extremities: extremities normal to inspection; no cyanosis and no clubbing Skin no rashes, warm and dry Neurologic moves all extremities and awake; no focal motor deficits Psychiatric A+Ox3, euthymic affect Lymphatic no lymphedema Discharge Data Allergies Allergy/AdvReac Type Severity Reaction Status Date / Time rosuvastatin AdvReac Severe Myalgia Verified 11/03/20 18:12 Consultations 11/03/20 19:34 Consult Cardiac Rehabilitation Routine Consult Occ Ther Routine 11/03/20 20:08 ED Decision to Admit Stat 11/04/20 15:22 Consult Cardiology Routine Procedures Performed Operation Date: 11/03/20 18:00 Actual Procedures p Aspiration/PCI w/JOO for Stemi - Boom Harvey MD s Cineradiography w/Routine Exam - Boom Harvey MD s Cath, Left with Cors and Vent - Boom Harvey MD Ordered Studies 11/03/20 18:06 CL Cath Imgs for PACS use only Stat Hospital Course (1) ST elevation (STEMI) myocardial infarction: 70yo male with history of HTN, HLP and DM presenting with inferior STEMI s/p cardiac catheterization with JOO x 1 to distal RCA Pt with ECHO with inferior WMAs, RV dysfunction moderate, preserved LVEF BNP elevated on admission but no evidence of volume overload, BPs stable to elevated and tolerating addition of low dose beta vaibhav etoprolol 25mg bid, added back lower dose of ACEi 5mg daily Troponin peaked at 36 LDL 88 on lipid panel, DM well controlled Appreciate Cardiology management -continue ASA 81mg po daily -continue Plavix 75mg po daily -Atorvastatin 20mg po qAM with caution - patient with history of statin induced myopathy -continue Metoprolol 25mg po BID , lisinopril decreased to 5mg daily dc home amlodipine and titrate up on beta vaibhav and ACEi as outpt instead f/u with Cardiology as outpt in 2 weeks Radial cath precautions given (2) CAD (coronary artery disease), campo coronary artery: as above (3) LYUBOV (acute kidney injury): 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 -Hold Metformin and restart 11/06 (6) Hypertension: Patient with episode of hypotension during catheterization requiring brief treatment with pressors and IVF. Blood pressure has since improved. -Metoprolol added as above -dc Amlodipine -restarted Lisinopril at lower dose of 5mg daily (home dose 40mg) (7) Gastroesophageal reflux: Chronic. Stable -Continue Protonix 40mg po daily (8) Peripheral neuropathy: continue gabapentin (9) Chronic back pain: continue home Opana, oxycodone prn continue gabapentin has had cervical and lumbar spine fusion with Dr. So in [place] (10) Anemia: chronic, normocytic follow as outpt follow CBC here now that on DAPT-hgb stable (11) Colostomy in place: with good output, no issues (12) Hyponatremia: Na+ 128 on admission and now improved to 131 with IVFs with NS Was hypovolemic perhaps? follow as outpt (13) UTI (urinary tract infection): UA abnormal Ur cx pending but with GNR received Rocephin 1 gram IV daily, follow Ur cx after discharge dc with po cefdinir 300mg po bid x 9 more days (14) Transaminitis: AST mildly elevated, perhaps from hypotension and liver injury (15) Obstructive sleep apnea: noted in chart as a dx but no record of sleep study or mention of CPAP (16) DVT prophylaxis: ASA,Plavix, SCDs Dispo-dc to home Total Time Total Time Spent Total Time Spent (In Minutes): 35 min Discharge Plan Discharge Items Patient Disposition: Home - Self-Care Reason For Visit: HEART ALERT Discharge Diagnosis: ST elevation myocardial infarction (heart attack), Urinary tract infection Condition on Discharge: Good Activity: As commented below Non-emergency contact: Primary Care Provider and 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 It is very important that you take all the new medications exactly as prescribed, including the aspirin and Plavix (clopidogrel) every day to keep your stent from clotting off. If you have a return of chest pain, nausea, dizziness, or shortness of breath, please go immediately to the hospital or call 911. You were also found to have a urinary tract infection. Please continue on the antibiotic, cefdinir, prescribed for 9 more days. The urine culture final result was not back yet at the time of discharge. If it returns with a bacteria growing that is resistant to cefdinir, you will be contacted. Do NOT take your metformin again until 11/06/20. ACTIVITY RECOMMENDATIONS: Excess manipulation of the wrist should be avoided for the next 24-48 hours. * No lifting over 2 pounds (approximately a 1/2 gallon of milk) with the utilized arm for 24 hours. * No strenuous activity such as bowling or tennis for 3 days. * Keep the site of the procedure covered with a bandage for 24 hours. *You may shower the day after the procedure. Do not take a tub bath or submerge the puncture site in water for the next 3 days. *Do not operate any motorized equipment for 3 days. SPECIAL CARE INSTRUCTIONS: The site may be slightly bruised and sore following your procedure. Should any of the following occur, contact the Dr. who performed your procedure. 1. Redness/inflammation, swelling, chills, or fever, or colored drainage at procedure site within 3-7 days after your procedure. 2. Coldness, discoloration, ongoing numbness, severe pain, or swelling. Expect mild tingling of hand and tenderness at the puncture site for up to three days. If this persists beyond three days, or other symptoms develop, notify the Dr. who performed your procedure. BLEEDING: If the procedure site on your wrist begins to bleed, do not panic 1. Place 1 or 2 fingers firmly just slightly above the insertion site to stop the bleeding. You may be able to feel your pulse as you hold pressure. 2. Lift your finger after 5 minutes to see if the bleeding has stopped. 3. Once the bleeding has stopped, gently wipe the wrist area clean with a bandage. * If the bleeding from your wrist does not stop after 10 minutes, or if there is a large amount of bleeding or spurting, call 911 (do not drive yourself to the hospital). SKIN IRRITATION: * You may experience some redness and/or swelling in the area where radiation was administered. If any skin irritation occurs, please contact your family physician. FOLLOW UP VISIT: Keep any scheduled doctor appointments. Home Care: * Take your medications exactly as directed. Don't skip doses. * Remember that recovery after a heart attack takes time. Plan to rest for at lease 4-8 weeks while you recover. Then return to normal activity when your doctor says it's okay. * Ask your doctor about joining a heart rehabilitation program. * Tell your doctor if you are feeling depressed. Feelings of sadness are common after a heart attack, but it is important that you speak to someone if you are feeling overwhelmed by these feelings. * If you are having chest pain, call 911 for an ambulance. Do NOT drive yourself to the hospital. * Ask your family members to learn CPR. * Learn to take your own blood pressure and pulse. Keep a record of your results. Ask your doctor when you should seek emergency medical attention. He or she will tell you which blood pressure reading is dangerous. Lifestyle Changes: * Maintain a healthy weight. Get help to lose any extra pounds. * Cut back on salt. * Limit canned, dried, packaged, and fast foods. * Don't add salt to your food. * Season foods with herbs instead of salt when you cook. * Break the smoking habit. Enroll in a stop-smoking program to improve your chances of success. * Limit fatty foods. * Ask your doctor about having your lipid levels checked regularly. * Build up your activity according to your doctor's recommendation. * Ask your doctor when it's okay to resume sexual activity. * Tell your doctor about any erectile dysfunction (ED) medication you are taking. Some ED medications are not safe if you take certain heart medications. * Try to manage stress. Follow Up: It is important for you to keep your follow up appointments with your medical provider. Pending Studies at Discharge: Yes Stand-Alone Forms: My [facility] Medications and DC Order Prescriptions: New atorvastatin 20 mg Tablet 20 mg PO QAM Qty: 30 RF: 0 clopidogrel 75 mg Tablet 75 mg PO QAM Qty: 30 RF: 0 aspirin 81 mg Tablet,Delayed Release (Dr/Ec) 81 mg PO QAM Qty: 30 RF: 0 lisinopril [Zestril] 5 mg Tablet 5 mg PO QAM Qty: 30 RF: 0 metoprolol tartrate 25 mg Tablet 25 mg PO BID Qty: 60 RF: 0 cefdinir 300 mg capsule 300 mg PO BID Qty: 18 RF: 0 Continued naloxone 4 mg/actuation spray,non-aerosol 1 spray intranasal Q3M Qty: 2 RF: 0 gabapentin 600 mg tablet 600 mg PO .COMPLEX Qty: 450 RF: 1 baclofen 20 mg tablet 20 mg PO QID 90 Days Qty: 360 RF: 1 tamsulosin 0.4 mg capsule 0.4 mg PO HS RF: 0 acetaminophen 500 mg capsule 500 mg PO Q8H PRN (Reason: Pain) RF: 0 oxymorphone 30 mg tablet extended release 12 hr 30 mg PO BID Qty: 14 RF: 0 oxycodone 5 mg tablet 5 mg PO Q4H Qty: 42 RF: 0 metformin 500 mg tablet 500 mg PO BID Qty: 180 RF: 1 vitamin [id number]-[id number] acid 500-400 mcg tablet 1 tab PO DAILY RF: 0 Discontinued amlodipine 10 mg tablet 10 mg PO DAILY Qty: 90 RF: 1 meloxicam 15 mg tablet 15 mg PO DAILY Qty: 90 RF: 1 lisinopril 40 mg tablet 40 mg PO QAM RF: 0 Discharge Orders: Discharge Order (Routine); Ordered 11/05/20 Ordered By: Christa Pimentel/Other Patient Handouts: A1C, Managing Type 2 Diabetes, Eating Heart- Healthy Foods Admission Data Admit Date/Time: 11/03/20 19:50 Attending Provider: Christa Lal Admit Provider: Boom Harvey Primary Care Provider: Andreea Sevilla Other Providers: Ramin Wyatt ; eBrnarda Varela ; Boom Harvey Coding Level of Care Code D/C DAY MANAGEMENT >[address] elevation (STEMI) myocardial infarction I21.11 Involved coronary artery: right coronary artery CAD (coronary artery disease), campo coronary artery I25.10 LYUBOV (acute kidney injury) N17.9 BPH with obstruction/lower urinary tract symptoms N40.1; N13.8 DM2 (diabetes mellitus, type 2) E11.9 Hypertension I10 Hypertension type: essential hypertension Gastroesophageal reflux K21.9 Peripheral neuropathy G62.9 Chronic back pain M54.5; G89.29 Back pain laterality: midline Back pain location: low back pain Sciatica presence: without sciatica Anemia D64.[address] Z93.3 Hyponatremia E87.1 UTI (urinary tract infection) N39.0 Transaminitis R74.01 Obstructive sleep apnea G47.33 DVT prophylaxis Z29.9
--- NOTE | 2020-11-06 15:56 | Electrocardiogram Report ---
Test Reason : Blood Pressure : / mmHG Vent. Rate : 104 BPM Atrial Rate : 104 BPM P-R Int : 156 ms QRS Dur : 094 ms QT Int : 342 ms P-R-T Axes : 072 053 080 degrees QTc Int : 449 ms Sinus tachycardia with frequent Premature ventricular complexes Biatrial enlargement Inferior infarct (cited on or before 03-NOV-2020) Abnormal ECG When compared with ECG of 03-NOV-2020 18:03, (unconfirmed) Premature ventricular complexes are now Present Confirmed by Danny Cordero ([id number]) on 11/06/2020 3:56:17 PM Referred By: REFERRED SELF Confirmed By:Danny Cordero
--- NOTE | 2020-11-06 15:56 | Electrocardiogram Report ---
Test Reason : Blood Pressure : / mmHG Vent. Rate : 108 BPM Atrial Rate : 108 BPM P-R Int : 154 ms QRS Dur : 092 ms QT Int : 334 ms P-R-T Axes : 070 050 082 degrees QTc Int : 447 ms Poor data quality, interpretation may be adversely affected Sinus tachycardia with PACs Biatrial enlargement Inferior infarct Abnormal ECG When compared with ECG of 05-AUG-2018 17:45, Inferior infarct is now Present Confirmed by Danny Cordero ([id number]) on 11/06/2020 3:55:55 PM Referred By: REFERRED SELF Confirmed By:Danny Cordero
--- NOTE | 2020-11-10 12:39 | Communication Note ---
Date of Service: November 10, 2020 Review of post-discharge labs -- Final urine culture grew craft-sensitive hafnia alvei. Sensitive to ceftriaxone. Sent home with 9-day course of oral cefdinir which will be adequate. Say Millan MD
== END 2020-11-05 14:05 | disposition home or self-care (01) | DRG 246 ==
LOC: EDBD → ED 17:59 → CC 18:21 → SUATTDRO 19:50 → 1E 19:50

== ENCOUNTER 2020-12-18 23:33 | Observation (INO) ==
[2020-12-19] MEDS ORDERED: LIDOCAINE/EPINEPH/TETRACAINE 1 EA SYR EXT STA (01:39)
[2020-12-19 02:43] LABS: Basophils # (auto) 0.01 K/uL (0-0.2); Basophils % (auto) 0.1 %; Eosinophils # (auto) 0.03 K/uL (0-0.5); Eosinophils % (auto) 0.3 %; Hemoglobin 12.8 g/dL (14.0-18.0); Immature Granulocytes # (auto) 0.03 K/uL (0.00-0.02); Immature Granulocytes % (auto) 0.3 %; Lymphocytes # (auto) 1.06 K/uL (1.2-3.4); Mean Corpuscular Hemoglobin 29.8 pg (25-34); Mean Corpuscular Hgb Conc 33.7 g/dL (32-36); Mean Corpuscular Volume 88.6 fL (80-100); Mean Platelet Volume 9.6 fL (7.4-10.4); Monocytes # (auto) 0.94 K/uL (0.11-0.59); Monocytes % (auto) 10.7 %; Neutrophils # (auto) 6.75 K/uL (1.4-6.5); Neutrophils % (auto) 76.6 %; Platelet Count 183 K/uL (130-400); RDW Standard Deviation 42.1 fL (36.4-46.3); Red Blood Count 4.29 M/uL (4.7-6.1); White Blood Count 8.82 K/uL (4.8-10.8)
[2020-12-19 03:22] LABS: Alanine Aminotransferase 19 U/L (12-78); Albumin Level 4.3 gm/dl (3.4-5.0); Aspartate Aminotransferase 20 U/L (15-37); Blood Urea Nitrogen 27 mg/dl (7-18); Calcium 9.3 mg/dl (8.5-10.1); Carbon Dioxide 28 mmol/L (21-32); Chloride 98 mmol/L (98-107); Creatinine Clr Calc Pharmacy 32.4 ml/min; Est GFR (African American) 33.1 ml/min; Est GFR (Non-African American) 28.6 ml/min; Glucose 155 mg/dl (70-99); Magnesium 2.6 mg/dl (1.8-2.4); Sodium 130 mmol/L (136-145)
[2020-12-19 03:23] LABS: Alkaline Phosphatase 87 U/L (45-117); Bilirubin,Total 0.5 mg/dl (0.2-1); Globulin 4.2 gm/dl (2.5-4.0); Total Protein 8.5 gm/dl (6.4-8.2); Troponin I < 0.015 ng/ml (0-0.045)
[2020-12-19] MEDS ORDERED: SODIUM CHLORIDE 0.9% 500 ML IV ONE (03:26)
--- NOTE | 2020-12-19 03:48 | Emergency Department Note ---
History of Present Illness General Chief complaint: Fall Stated complaint: FALL- HIT HEAD Time Seen by Provider: 12/19/20 01:28 History of Present Illness This 70-year-old on Plavix presents to the ER complaining of head injury Location: Head Quality: Laceration Severity: Moderate Duration: Tonight Timing: Tonight Context: was concerned and brought him in Modifying factors: better with nothing; worse with nothing Patient states he is unsure what it happened. found him sitting with a hea d injury. He is unsure if he passed out. Patient denies headache, chest pain, dyspnea, abdominal pain, numbness, tingling or any other medical complaints. Home Medications Medication Instructions Recorded Confirmed Type vitamin B12 500 mcg-folic acid 400 1 tab PO DAILY 02/12/20 12/19/20 History mcg tablet gabapentin 600 mg tablet 600 mg PO .COMPLEX #450 tab 06/08/20 12/19/20 Rx baclofen 20 mg tablet 20 mg PO QID 90 Days #360 tab 08/23/20 12/19/20 Rx acetaminophen 500 mg capsule 500 mg PO Q8H PRN cap 10/12/20 12/19/20 History tamsulosin 0.4 mg capsule 0.4 mg PO HS cap 10/12/20 12/19/20 History oxymorphone 30 mg tablet,extended 30 mg PO BID #14 tab 10/14/20 12/19/20 Rx release,12 hr aspirin 81 mg tablet,delayed 81 mg PO QAM #30 tab 11/05/20 12/19/20 Rx release atorvastatin 40 mg tablet 40 mg PO QAM #90 tab 11/30/20 12/19/20 Rx clopidogrel 75 mg tablet 75 mg PO QAM #90 tab 11/30/20 12/19/20 Rx metformin 500 mg tablet 500 mg PO BID #180 tab 12/08/20 12/19/20 Rx lisinopril 5 mg tablet (Zestril) 5 mg PO QAM #90 tab 12/16/20 12/19/20 Rx metoprolol tartrate 25 mg tablet 25 mg PO BID #180 tab 12/16/20 12/19/20 Rx naloxone 4 mg/actuation nasal spray 1 spray INTRANASAL Q3M PRN 12/19/20 12/19/20 History oxycodone 5 mg tablet 5 mg PO Q4H PRN 12/19/20 12/19/20 History Allergies Allergy/AdvReac Type Severity Reaction Status Date / Time rosuvastatin AdvReac Severe Myalgia Verified 12/19/20 02:00 Past Med/Surg History Medical History Anxiety disorder BPH with obstruction/lower urinary tract symptoms CAD (coronary artery disease), [place] coronary artery Chronic back pain DM2 (diabetes mellitus, type 2) Gastroesophageal reflux Hypertension Hyponatremia Obstructive sleep apnea Osteoarthritis Peripheral neuropathy ST elevation (STEMI) myocardial infarction Statin myopathy Surgical History H/O inguinal hernia repair H/O resection of rectum History of rectal surgery Previous back surgery S/P cervical spinal fusion S/P tonsillectomy and adenoidectomy Family History Father Cardiovascular disease Cardiac disorder Prostate cancer Mother Dementia Diabetes Other Hypertension No significant family history Denies family history of Ovarian cancer Myocardial infarction Breast cancer Colorectal cancer Social History Smoking Status: Never smoker Age Started Using Tobacco: 17; Age Quit Using Tobacco: 24; packs per day: 1; Years Smoked: 7; Cigarettes Per Day: 20; Number of Years Since Quit: 46; Second Hand Exposure: No; Hx Alcohol Use: No Hx Substance Use: No Preferred Language: Arabic Communication Ability: Effective Visual Impairment: No Limitations Hearing Ability: Normal Desktop Specialist Required: No Beliefs That Will Affect Care: None marital status: Current Living Situation: Spouse current occupational status: retired How many Children do You have: 4 Feels Safe at Home: Yes Childhood Exposure to Second-Hand Smoke: No caffeine: Yes during the past year weight has: remained stable Dental Care, Regularly: No Physical Activity Frequency: Daily Seatbelt Use: always Sunscreen Use: No Assistive Devices: Denture - Upper and Denture - Lower Review of Systems A total of 10 systems reviewed and were otherwise negative Physical Exam Vital Signs Vital Signs - 24 hr 12/18/20 23:36 12/19/20 02:43 12/19/20 02:44 Temperature 36.8 C Temperature Source Oral Pulse Rate 84 87 Pulse Rate [Finger] 89 Respiratory Rate 20 18 18 Respiratory Effort / Characteristics Non-Labored Non-Labored Spontaneous Respiratory Depth Normal Normal Blood Pressure 129/88 Blood Pressure [Right Arm] 151/80 H Blood Pressure Mean 101 Blood Pressure Mean [Right Arm] 103 Pulse Oximetry 97 98 99 Oxygen Delivery Method Room Air Room Air Room Air Sepsis Recent Fever Within 48 Hours No Sepsis New/Unexplained Change in Mental Status N/A Sepsis Action Taken by Nursing No Action Required VITALS: Vitals are noted on the nurse's note and reviewed by myself. Vital signs stable. GENERAL: Pleasant male, in no acute distress, nondiaphoretic, well-developed well-nourished. SKIN: 3 cm left forehead laceration is gaping appears clean, the rest of the skin was without rashes, erythema, edema, or bruising. There is no tenting of the skin. Capillary reflex less than 2 seconds. HEAD: Normocephalic atraumatic. EARS: External auditory canals clear, tympanic membranes pearly deal without erythema or effusion bilaterally. EYES: Pupils equal round and reactive to light and accommodation. Conjunctivae without injection, sclerae without icterus. Extraocular movements intact. NOSE: Patent, turbinates without inflammation or discharge. MOUTH: Mucous membranes moist. Pharynx without erythema or exudate. Uvula midline. Airway patent. Tongue does not deviate. NECK: Supple without nuchal rigidity. No lymphadenopathy. No thyromegaly. Cervical spine is nontender. No JVD. HEART: Regular rate and rhythm LUNGS: Clear to auscultation bilaterally without wheezes, rales or rhonchi. No retractions or accessory muscle use. ABDOMEN: Positive bowel sounds x 4. Normal tympanic percussion. Soft, nontender, without masses or organomegaly. Shipley sign negative. No guarding or rebound tenderness. No CVA tenderness MUSCULOSKELETAL: No muscle atrophy, erythema, or edema noted. NEURO: Patient was alert and oriented to person place and time. Normal sensation to light and sharp touch. No focal neurological deficits. Course Administered Medications Discontinued Medications Lidocaine (Lidocaine/Epineph/Tetracaine 1 Ea Syr) 1 ea EXT NOW STA Stop: 12/19/20 01:40 Last Admin: 12/19/20 02:41 Dose: 1 ea Documented by: [id number] Medical Decision Making Medical Records Attestation: I reviewed the patient's medical records. Home Medications Current Medication List: was personally reviewed by me Laboratory Data Attestation: I reviewed the patient's lab results. Result diagrams: 12/19/20 02:36 12/19/20 02:36 Lab Results 12/19/20 12/19/20 Range/Units 02:36 02:36 WBC 8.82 (4.8-10.8) K/uL RBC 4.29 L (4.7-6.1) M/uL Hgb 12.8 L (14.0-18.0) g/dL Hct 38.0 L (42-52) % MCV 88.6 (80-100) fL MCH 29.8 (25-34) pg MCHC 33.7 (32-36) g/dL RDW Std Deviation 42.1 (36.4-46.3) fL RDW Coeff of Arturo 13.0 (11.5-14.5) % Plt Count 183 (130-400) K/uL MPV 9.6 (7.4-10.4) fL Immature Gran % (Auto) 0.3 % Neut % (Auto) 76.6 % Lymph % (Auto) 12.0 % Crosby % (Auto) 10.7 % Eos % (Auto) 0.3 % Baso % (Auto) 0.1 % Neut # (Auto) 6.75 H (1.4-6.5) K/uL Lymph # (Auto) 1.06 L (1.2-3.4) K/uL Crosby # (Auto) 0.94 H (0.11-0.59) K/uL Eos # (Auto) 0.03 (0-0.5) K/uL Baso # (Auto) 0.01 (0-0.2) K/uL Immature Gran # (Auto) 0.03 H (0.00-0.02) K/uL Sodium 130 L (136-145) mmol/L Potassium 5.0 (3.5-5.1) mmol/L Chloride 98 (98-107) mmol/L Carbon Dioxide 28 (21-32) mmol/L Anion Gap 4.0 (3-11) BUN 27 H (7-18) mg/dl Creatinine 2.23 H (0.6-1.4) mg/dl Est Cr Clr Drug Dosing 32.4 ml/min Est GFR ( Amer) 33.1 ml/min Est GFR (Non-Af Amer) 28.6 ml/min BUN/Creatinine Ratio 12.0 (10-20) Glucose 155 H (70-99) mg/dl Calcium 9.3 (8.5-10.1) mg/dl Magnesium 2.6 H (1.8-2.4) mg/dl Total Bilirubin 0.5 (0.2-1) mg/dl AST 20 (15-37) U/L ALT 19 (12-78) U/L Alkaline Phosphatase 87 (45-117) U/L Troponin I < 0.015 (0-0.045) ng/ml Total Protein 8.5 H (6.4-8.2) gm/dl Albumin 4.3 (3.4-5.0) gm/dl Globulin 4.2 H (2.5-4.0) gm/dl Albumin/Globulin Ratio 1.0 (0.9-2) TSH 1.800 (0.300-4.500) uIu/ml Specimen Hemolysis Imaging Data Attestation: I personally reviewed and interpreted this imaging study as follows: MDM Narrative Prior records/ancillary studies reviewed. Triage Nursing notes reviewed. Additional history obtained from nursing. The patient's history was concerning for syncope. Differential diagnosis: Etiologies such as vasovagal event, infection, hypoglycemia, electrolyte abnormalities, cardiac sources, intracerebral event, toxicologic, neurologic, as well as others were entertained. Physical examination: As above ER treatment provided: IV hydration with normal saline Laceration Repair Location: Forehead Total length: 3 cm Complexity: Simple Verbal consent was obtained after the risks and benefits were explained, including but not limited to bleeding, scarring, infection, pain, and bone/joint/nerve damage. At this time, the risks of the procedure are less than the risks of NOT performing the procedure. A time out was taken and the correct patient and site identified. The skin was prepped with betadine. The target area was anesthetized with LET. Copious irrigation was performed using nss. The skin was re-prepped with betadine and a sterile field set. The wound was explored for foreign bodies and none found. Examination revealed no injury to deep structures such as tendons, bone, or significant blood vessels. Debridement was not performed. The wound edges were approximated using 5, 6-0 simple interrupted nylon sutures. Hemostasis and excellent approximation was achieved. Antibacterial ointment and a sterile dressing applied. Detailed wound care instructions and signs and symptoms of infection reviewed with the pt. No complications and the patient tolerated the procedure well. On reassessment the patient felt better. An order was placed for continuous cardiac monitoring. The monitor shows a rate of 60-100 with a sinus rhythm. Diagnostics interpretation by me: ECG: Ordered for syncope EKG:Normal sinus, Q waves in the inferior and posterior leads, no acute ST-T wave changes. Impression normal sinus rhythm with Q waves present interpreted by myself I think arrhythmia is unlikely. EKG shows no interval abnormalities such as QT prolongation or WPW. There are no findings to suggest Brugada syndrome. Cardiac monitoring in the emergency department reveals no tachycardic or bradycardic dysrhythmia. Hypertrophic cardiomyopathy was considered but there are no clear historical elements pointing toward this. EKG is not suggestive. The QRS voltage is not extremely large The labs revealed elevated creatinine from baseline Imaging studies: CT HEAD: Comparison to November 13, 2017. Small left frontal scalp hematoma. No skull fracture is seen. The paranasal sinuses and mastoid air cells are within normal limits. Mild periventricular white matter low density consistent with chronic small vessel disease. There is no evidence of acute large vessel infarct or intracranial hemorrhage. Radiologist: ePdro Varela MD CT C SPINE: Extensive instrumentation and fusion consisting of an anterior plate fusing C4- C7 and pedicle screws attached to posterolateral rods with laminectomy through those levels. The hardware is in good position. No loosening identified. Mild narrowing and osteophytosis of the atlantodental joint. The odontoid process is intact with several erosions. No spinal stenosis. Mild degenerative disc disease at C2-3, C3-4, and C7-T1. No acute cervical spine fracture or traumatic subluxation is seen. Radiologist: Pedro Varela MD Consultation: A consultation was placed with the hospitalist. The case was discussed and diagnostics were reviewed. The patient was evaluated in the ER for further treatment. This appears to be consistent with syncope with acute renal injury and head injury. Wound was repaired as above. Creatinine is higher than baseline. He was given IV fluids. Patient reports tetanus is current. Patient will be admitted to the medical service. By the evaluation outlined above emergent etiologies such as infection, hypoglycemia, electrolyte abnormalities, intracerebral event, toxicologic, as well as others were deemed relatively unlikely. The pt informed about the findings as listed above. All questions were answered and pleased with the treatment. The chart was completed utilizing [employer] Speech voice recognition software. Grammatical errors, random word insertions, pronoun errors, and incomplete sentences are an occassional consequence of this system due to software limitations, ambient noise, and hardware issues. Any formal questions or concerns about the content, text, or information contained within the body of this dictation should be directly addressed to the physician school bus driver/teacher assistant for clarification. Impression & Plan LYUBOV (acute kidney injury), Syncope, Head injury, Facial laceration Discharge Plan Visit Data Chief Complaint: Fall Stated Complaint: FALL- HIT HEAD ED Provider: Arpan Harman ED Midlevel Provider: Kate Cantu Discharge Problem: LYUBOV (acute kidney injury), Syncope, Head injury, Facial laceration Patient Disposition: Admitted As Inpatient Condition: Fair Forms Stand Alone Forms: [facility] [employer] Prescriptions Prescriptions: No Action gabapentin 600 mg tablet 600 mg PO .COMPLEX Qty: 450 RF: 1 baclofen 20 mg tablet 20 mg PO QID 90 Days Qty: 360 RF: 1 tamsulosin 0.4 mg capsule 0.4 mg PO HS RF: 0 acetaminophen 500 mg capsule 500 mg PO Q8H PRN (Reason: Pain) RF: 0 oxymorphone 30 mg tablet extended release 12 hr 30 mg PO BID Qty: 14 RF: 0 clopidogrel 75 mg tablet 75 mg PO QAM Qty: 90 RF: 3 atorvastatin 40 mg tablet 40 mg PO QAM Qty: 90 RF: 3 metformin 500 mg tablet 500 mg PO BID Qty: 180 RF: 1 lisinopril [Zestril] 5 mg tablet 5 mg PO QAM Qty: 90 RF: 1 metoprolol tartrate 25 mg tablet 25 mg PO BID Qty: 180 RF: 1 vitamin H11-pieel acid 500-400 mcg tablet 1 tab PO DAILY RF: 0 oxycodone 5 mg tablet 5 mg PO Q4H PRN (Reason: Pain) RF: 0 naloxone 4 mg/actuation spray,non-aerosol 1 spray intranasal Q3M PRN (Reason: OVER SEDATION) RF: 0 aspirin 81 mg Tablet,Delayed Release (Dr/Ec) 81 mg PO QAM Qty: 30 RF: 0 Referrals Referrals: Andreea Sevilla MD [Primary Care Provider] -
[2020-12-19 03:57] LABS: Creatine Kinase 109 U/L (39-308)
--- NOTE | 2020-12-19 05:49 | History & Physical Report ---
Date of Service December 19, 2020 Assessment & Plan (1) LYUBOV (acute kidney injury): Plan: 70-year-old male with a past medical history of Diabetes, hypertension, recent UT with stenting 11/05/2020, chronic back pain, HARJEET presents for evaluation after a fall at home. #Polypharmacy Patient with a history of chronic pain, on a complex pain regimen including baclofen 20 mg 4 times daily, gabapentin 600 mg 3 times daily and 1200 mg at bedtime, as needed oxycodone 5 mg every 4 hours, and oxymorphone 30 mg extended release. Per patient's he will take a number of these medications concurrently in the evening leading him to "sleep deeply ". The patient endorses episodes of incontinence when he is sleeping deeply, falling episodes, and disorientation. This evening he took his evening pain medications and then sat in his office chair when he fell asleep waking up with injuries noted. Based on the clinical history, and recent cardiac evaluation suspect that he was sleeping deeply leading to his fall versus a true syncopal episode. -We will defer further syncopal work-up to the day team if they feel it is indicated -DC'd as needed oxycodone -Consider optimization of his pain regimen #Head injury/facial laceration Secondary to the above repaired in the emergency department -Monitor for development of infection -Routine wound care -Consulted wound #LYUBOV Patient reports symptoms of dehydration. Creatinine on admission 2.23 received 1 L bolus in the ER, suspect prerenal. -Urine lytes pending -Repeat BMP in the a.m. -LR at 125x3 bags -Avoid nephrotoxins #Diabetes 2 History of diabetes Well-controlled as of 11/04/2020 A1c was 6.7. Patient takes twice daily Metformin 500 mg Will hold Metformin for now and defer insulin therapy at present. -BSG's ACHs FENa: Diabetes type 2 diet Code Status: Full DVT PPX: Lovenox PT/OT: Ordered Case Management: Consulted Dispo: Medr with telemetry Eitan Varela MD PGY 3, FCM This chart was completed utilizing [employer] ? voice recognition software. Grammatical errors, random word insertions, pronoun errors, and in complete sentences are an occasional consequence of the system. Any questions or concerns about the content, text, or information contained within the body of this dictation should be addressed directly to the physician for clarification. (2) Head injury: (3) Facial laceration: (4) Polypharmacy: History of Present Illness Primary Care Provider: Andreea Sevilla MD 70-year-old male with a past medical history of Diabetes, hypertension, recent UT with stenting 11/05/2020, chronic back pain, HARJEET presents for evaluation after a fall at home. Patient was in his usual state of health denying any constitutional symptoms including fevers or chills, nausea or vomiting, chest pressure chest pain, shortness of breath he reports falling asleep in his office chair. When he woke up and hit his head and was bleeding. His was present when he woke up, she did not note any post ictal confusion, or seizure-like behavior. The patient denied any chest pressure or chest pain. Per report from the nurse patient's notes that the patient takes an excessive amount of pain medication in the evening around bedtime. The patient endorsed this as well, he states he takes the medication for his chronic back pain. His pain medication regimen includes baclofen 20 mg p.o. 4 times daily, gabapentin 600 mg 3 times daily 1200 mg at bedtime, oxycodone 5 mg every 4 hours as needed, oxymorphone 30 mg twice daily. The patient notes that he "sleeps very deeply "when he sleeps deeply he will at times fall, or have episodes of incontinence. Upon presentation to the emergency department he was evaluated and noted to be asymptomatic with the exception of his head injury. CT head was obtained demonstrating hematoma but no acute hemorrhages or intracranial pathology. CT spine was consistent with prior surgeries and no acute findings. Routine labs were obtained CBC was unremarkable, CMP demonstrated an elevated creatinine to 2.23 and elevated glucose to 155. Primary team was consulted for admission. Patient relate a history of similar to that described above. Patient will be admitted for management of polypharmacy, and acute kidney injury. Allergies Allergy/AdvReac Type Severity Reaction Status Date / Time rosuvastatin AdvReac Severe Myalgia Verified 12/19/20 02:00 Home Medications Medication Instructions Recorded Confirmed Type vitamin B12 500 mcg-folic acid 400 1 tab PO DAILY 02/12/20 12/19/20 History mcg tablet gabapentin 600 mg tablet 600 mg PO .COMPLEX #450 tab 06/08/20 12/19/20 Rx baclofen 20 mg tablet 20 mg PO QID 90 Days #360 tab 08/23/20 12/19/20 Rx acetaminophen 500 mg capsule 500 mg PO Q8H PRN cap 10/12/20 12/19/20 History tamsulosin 0.4 mg capsule 0.4 mg PO HS cap 10/12/20 12/19/20 History oxymorphone 30 mg tablet,extended 30 mg PO BID #14 tab 10/14/20 12/19/20 Rx release,12 hr aspirin 81 mg tablet,delayed 81 mg PO QAM #30 tab 11/05/20 12/19/20 Rx release atorvastatin 40 mg tablet 40 mg PO QAM #90 tab 11/30/20 12/19/20 Rx clopidogrel 75 mg tablet 75 mg PO QAM #90 tab 11/30/20 12/19/20 Rx metformin 500 mg tablet 500 mg PO BID #180 tab 12/08/20 12/19/20 Rx lisinopril 5 mg tablet (Zestril) 5 mg PO QAM #90 tab 12/16/20 12/19/20 Rx metoprolol tartrate 25 mg tablet 25 mg PO BID #180 tab 12/16/20 12/19/20 Rx naloxone 4 mg/actuation nasal spray 1 spray INTRANASAL Q3M PRN 12/19/20 12/19/20 History oxycodone 5 mg tablet 5 mg PO Q4H PRN 12/19/20 12/19/20 History Past Med/Surg History Medical History Anxiety disorder BPH with obstruction/lower urinary tract symptoms CAD (coronary artery disease), [place] coronary artery Chronic back pain DM2 (diabetes mellitus, type 2) Gastroesophageal reflux Hypertension Hyponatremia Obstructive sleep apnea Osteoarthritis Peripheral neuropathy ST elevation (STEMI) myocardial infarction Statin myopathy Surgical History H/O inguinal hernia repair H/O resection of rectum History of rectal surgery Previous back surgery S/P cervical spinal fusion S/P tonsillectomy and adenoidectomy Family History Father Cardiovascular disease Cardiac disorder Prostate cancer Mother Dementia Diabetes Other Hypertension No significant family history Denies family history of Ovarian cancer Myocardial infarction Breast cancer Colorectal cancer Social History Smoking Status: Never smoker Age Started Using Tobacco: 17; Age Quit Using Tobacco: 24; packs per day: 1; Years Smoked: 7; Cigarettes Per Day: 20; Number of Years Since Quit: 46; Second Hand Exposure: No; Hx Alcohol Use: No Hx Substance Use: No Preferred Language: Brazilian Communication Ability: Effective Visual Impairment: No Limitations Hearing Ability: Normal Pet Groomer Required: No Beliefs That Will Affect Care: None marital status: Current Living Situation: Spouse current occupational status: retired How many Children do You have: 4 Feels Safe at Home: Yes Childhood Exposure to Second-Hand Smoke: No caffeine: Yes during the past year weight has: remained stable Dental Care, Regularly: No Physical Activity Frequency: Daily Seatbelt Use: always Sunscreen Use: No Assistive Devices: Denture - Upper and Denture - Lower Review of Systems Review of Systems: All systems reviewed & are unremarkable except as noted in HPI & below Physical Exam Physical Exam: General: In no acute distress HEENT: Laceration on his face and numerous bruises, ecchymosis over his left eye Cardiac: Regular rate and rhythm I did not appreciate significant murmurs rubs or gallops, normal S1, normal S2, negative pedal edema Respiratory: Clear to auscultation bilaterally with symmetrical chest expansion did not appreciate significant wheezes, rales, rhonchi MSK: Moves all extremities Skin: Numerous bruises and lacerations on his body Neuro: Alert and oriented x4 Psych: Calm and cooperative with interview Results & Data Results & Data ([facility]) Vital Signs (Past 12 Hours) Vital Signs Temp Pulse Pulse Resp BP BP Pulse Ox 12/19/20 02:44 89 18 151/80 H 99 12/19/20 02:43 87 18 98 12/18/20 23:36 36.8 C 84 20 129/88 97 Laboratory Results 12/19/20 12/19/20 12/19/20 Range/Units 03:55 03:55 02:36 WBC (4.8-10.8) K/uL RBC (4.7-6.1) M/uL Hgb (14.0-18.0) g/dL Hct (42-52) % MCV (80-100) fL MCH (25-34) pg MCHC (32-36) g/dL RDW Std Deviation (36.4-46.3) fL RDW Coeff of Arturo (11.5-14.5) % Plt Count (130-400) K/uL MPV (7.4-10.4) fL Immature Gran % (Auto) % Neut % (Auto) % Lymph % (Auto) % [place] % (Auto) % Eos % (Auto) % Baso % (Auto) % Neut # (Auto) (1.4-6.5) K/uL Lymph # (Auto) (1.2-3.4) K/uL [place] # (Auto) (0.11-0.59) K/uL Eos # (Auto) (0-0.5) K/uL Baso # (Auto) (0-0.2) K/uL Immature Gran # (Auto) (0.00-0.02) K/uL Sodium 130 L (136-145) mmol/L Potassium 5.0 (3.5-5.1) mmol/L Chloride 98 (98-107) mmol/L Carbon Dioxide 28 (21-32) mmol/L Anion Gap 4.0 (3-11) BUN 27 H (7-18) mg/dl Creatinine 2.23 H (0.6-1.4) mg/dl Est Cr Clr Drug Dosing 32.4 ml/min Est GFR ( Amer) 33.1 ml/min Est GFR (Non-Af Amer) 28.6 ml/min BUN/Creatinine Ratio 12.0 (10-20) Glucose 155 H (70-99) mg/dl Calcium 9.3 (8.5-10.1) mg/dl Magnesium 2.6 H (1.8-2.4) mg/dl Total Bilirubin 0.5 (0.2-1) mg/dl AST 20 (15-37) U/L ALT 19 (12-78) U/L Alkaline Phosphatase 87 (45-117) U/L Total Creatine Kinase 109 (39-308) U/L Troponin I < 0.015 (0-0.045) ng/ml Total Protein 8.5 H (6.4-8.2) gm/dl Albumin 4.3 (3.4-5.0) gm/dl Globulin 4.2 H (2.5-4.0) gm/dl Albumin/Globulin Ratio 1.0 (0.9-2) TSH 1.800 (0.300-4.500) uIu/ml Specimen Hemolysis COVID-19 Eval Order Covid19 at [facility] SARS-CoV-2 (PCR) NEGATIVE (Negative) 12/19/20 Range/Units 02:36 WBC 8.82 (4.8-10.8) K/uL RBC 4.29 L (4.7-6.1) M/uL Hgb 12.8 L (14.0-18.0) g/dL Hct 38.0 L (42-52) % MCV 88.6 (80-100) fL MCH 29.8 (25-34) pg MCHC 33.7 (32-36) g/dL RDW Std Deviation 42.1 (36.4-46.3) fL RDW Coeff of Arturo 13.0 (11.5-14.5) % Plt Count 183 (130-400) K/uL MPV 9.6 (7.4-10.4) fL Immature Gran % (Auto) 0.3 % Neut % (Auto) 76.6 % Lymph % (Auto) 12.0 % [place] % (Auto) 10.7 % Eos % (Auto) 0.3 % Baso % (Auto) 0.1 % Neut # (Auto) 6.75 H (1.4-6.5) K/uL Lymph # (Auto) 1.06 L (1.2-3.4) K/uL [place] # (Auto) 0.94 H (0.11-0.59) K/uL Eos # (Auto) 0.03 (0-0.5) K/uL Baso # (Auto) 0.01 (0-0.2) K/uL Immature Gran # (Auto) 0.03 H (0.00-0.02) K/uL Sodium (136-145) mmol/L Potassium (3.5-5.1) mmol/L Chloride (98-107) mmol/L Carbon Dioxide (21-32) mmol/L Anion Gap (3-11) BUN (7-18) mg/dl Creatinine (0.6-1.4) mg/dl Est Cr Clr Drug Dosing ml/min Est GFR ( Amer) ml/min Est GFR (Non-Af Amer) ml/min BUN/Creatinine Ratio (10-20) Glucose (70-99) mg/dl Calcium (8.5-10.1) mg/dl Magnesium (1.8-2.4) mg/dl Total Bilirubin (0.2-1) mg/dl AST (15-37) U/L ALT (12-78) U/L Alkaline Phosphatase (45-117) U/L Total Creatine Kinase (39-308) U/L Troponin I (0-0.045) ng/ml Total Protein (6.4-8.2) gm/dl Albumin (3.4-5.0) gm/dl Globulin (2.5-4.0) gm/dl Albumin/Globulin Ratio (0.9-2) TSH (0.300-4.500) uIu/ml Specimen Hemolysis COVID-19 Eval Order SARS-CoV-2 (PCR) (Negative) Medications Administered Current Inpatient Medications Acetaminophen (Acetaminophen 500 Mg Tab) 1,000 mg PO Q6 PRN PRN Reason: Pain or Fever Stop: 01/18/21 05:08 Enoxaparin Sodium (Enoxaparin Inj 30 Mg/0.3 Ml Syr) 30 mg SQ Q24H JEY Stop: 01/18/21 05:14 Lactated Ringer's (Lr) 1,000 mls @ 125 mls/hr IV .Q8H JEY Stop: 12/20/20 05:14 Polyethylene Glycol (Polyethylene (Miralax) 17 Gm Pack) 17 gm PO DAILY JEY Stop: 01/18/21 08:59 Code Status & VTE Plan VTE Prophylaxis Plan VTE Prophylaxis will be ordered: Yes Supervising Physician Co-Signing Physician Notes Patient seen and examined, chart reviewed, case discussed with Dr. Varela and I agree with his assessment and plan as above. In brief, patient is a 70-year-old male with history of diabetes, hypertension, HARJEET, coronary artery disease, BPH and anxiety presenting after possible fall with head trauma at home. Patient was found by his with a black eye and bleeding on his head. Patient reports he is a very deep sleeper and occasionally will fall from bed, chairs, desks while he is sleeping. Patient is on several medications that may induce sleepiness. is concerned he may be taking too many medications. Patient denies chest pain, palpitations, dizziness, syncope, abdominal pain, nausea, vomiting, diarrhea, constipation. No additional complaints Physical exam he has periorbital ecchymosis of the left eye as well as forehead laceration status post suture repair. Ostomy in place without bleeding/drainage/erythema Remainder of exam is unremarkable Labs and images reviewed significant for sodium of 130, BUN of 27, creatinine of 2.23. CT with scalp hematoma. Cervical spine hardware in place Assessment/plan patient with recent head trauma question syncope versus medication effects We will check orthostatic vital signs Consider decreasing gabapentin and baclofen. As needed oxycodone has been discontinued. IV fluids Monitor sodium and renal function PT and OT Remainder of plan as above Resident Activity Tracking Resident Involvement: Resident Care Provided Care Provided: Adult Hospital Medicine
[2020-12-19] MEDS ORDERED: NALOXONE NASAL SPRAY 4 MG ER HOMEPACK PRN (06:23)
[2020-12-19] MEDS: LACTATED RINGER'S 1,000 ML IV SCH ×2 (06:24→14:08)
--- NOTE | 2020-12-19 06:32 | Billing Data ---
Date of Service December 19, 2020 Coding Level of Care Code 47578 Initial Inpt Care Lvl 3
[2020-12-19] MEDS ORDERED: NALOXONE HCL 0.4 MG/1 ML VIAL/CARP IV PRN (06:43)
[2020-12-19 06:58] LABS: Appearance Urine Clear (Clear); Bilirubin Urine Negative (Negative); Blood Urine Negative (Negative); Color Urine Yellow; Glucose Urine UA Negative (Negative); Ketones Urine Negative (Negative); Leukocyte Esterase Urine Negative (Negative); Nitrite Urine Negative (Negative); Protein Urine Negative (Negative); Specific Gravity Urine 1.009 (1.000-1.030); Urobilinogen Urine Negative (Negative); pH Urine 5.5 (4.5-7.5)
[2020-12-19 07:18] LABS: Creatinine Urine Random 64.6 mg/dl; Uric Acid Urine Random 17.9 mg/dl; Urine Potassium 12.5 mmol/L
[2020-12-19] MEDS: ACETAMINOPHEN 500 MG TAB PO PRN ×2 (07:33→23:01)
[2020-12-19] MEDS: GABAPENTIN 600 MG TAB PO SCH ×3 (07:33→18:07)
[2020-12-19] MEDS: CLOPIDOGREL BISULFATE 75 MG TAB PO SCH (08:28)
[2020-12-19] MEDS: POLYETHYLENE (MIRALAX) 17 GM PACK PO SCH (08:28)
[2020-12-19] MEDS: METOPROLOL TARTRATE 25 MG TAB PO SCH ×2 (08:28→21:22)
[2020-12-19] MEDS: ENOXAPARIN INJ 30 MG/0.3 ML SYR SQ SCH (08:28)
[2020-12-19] MEDS: ASPIRIN 81 MG ECTAB PO SCH (08:28)
[2020-12-19] MEDS: BACLOFEN 20 MG TAB PO SCH ×4 (08:38→21:24)
[2020-12-19] MEDS: ATORVASTATIN 40 MG TAB PO SCH (08:38)
[2020-12-19] MEDS ORDERED: lisinopril 5 MG TAB PO SCH (09:00)
--- NOTE | 2020-12-19 09:05 | CT Scan Report ---
CT head/brain wo con CLINICAL HISTORY: 70 years-old Male with syncope, HI on plavix. Acute head injury status post fall TECHNIQUE: Multiple axial CT images of the head were obtained without contrast. A dose lowering tech nique was utilized adhering to the principles of ALARA. CT DOSE: 1159.39 mGy.cm COMPARISON: CT cervical spine of same day, head CT 08/05/2018 FINDINGS: No acute intracranial hemorrhage, midline shift, intracranial mass, hydrocephalus, territorial ischem ia or abnormal extra-axial collection. Age-related involutional changes. Mild white matter hypodensit ies suggestive of chronic microvascular ischemic disease. Cerebral vascular calcifications. The calvarium is intact. Small left frontal scalp hematoma. The paranasal sinuses, mastoid air cells, and middle ear cavities are clear. IMPRESSION: 1. No acute intracranial abnormality or calvarial fracture. 2. Small left frontal/supraorbital scalp hematoma. ACT 112: Negative or not required by law. The above report was generated using voice recognition software. It may contain grammatical, syntax o r spelling errors. Electronically signed by: Gian Pickett M.D. 12/19/2020 9:03 AM
--- NOTE | 2020-12-19 09:45 | CT Scan Report ---
CT cervical spine wo con CLINICAL HISTORY: 70 years-old Male with HI. Acute head and neck injury status post fall COMPARISON: CT head of same day, cervical spine radiographs 12/23/2011, chest CT 10/10/2012 TECHNIQUE: Multiple axial CT images of the cervical spine were obtained without contrast. A dose low ering technique was utilized adhering to the principles of ALARA. FINDINGS: Anterior plate and screw fusion with discectomy changes at C4-C7. There is partial and comp lete osseous fusion at these levels. Additionally, there is posterior interbody tasia and screw fusion at these levels. No evidence of hardware fracture or loosening. Moderate to severe multilevel facet a rthrosis with moderate spondylitic spurring. Severe degeneration with osseous erosions at C1-C2. Steam Tunnel Feeder radha superior endplate compression deformities at T1 and T2 without retropulsion are unchanged from co mparison. No acute fracture or subluxation. Suboptimal evaluation of the central canal or neural fora marie by CT technique. No pneumothorax. No prevertebral edema. IMPRESSION: 1. No acute cervical spine fracture or subluxation. 2. Extensive postoperative changes as above. No evidence of hardware complication. 3. Chronic T1 and T2 compression fractures. ACT 112: Negative or not required by law. The above report was generated using voice recognition software. It may contain grammatical, syntax o r spelling errors. Electronically signed by: Gian Pickett M.D. 12/19/2020 9:43 AM
--- NOTE | 2020-12-19 10:01 | Electrocardiogram Report ---
Test Reason : Blood Pressure : / mmHG Vent. Rate : 087 BPM Atrial Rate : 087 BPM P-R Int : 154 ms QRS Dur : 086 ms QT Int : 380 ms P-R-T Axes : 064 -05 -28 degrees QTc Int : 457 ms Poor data quality, interpretation may be adversely affected Normal sinus rhythm Possible Left atrial enlargement Inferior-posterior infarct (cited on or before 03-NOV-2020) Abnormal ECG When compared with ECG of 03-NOV-2020 18:03, No significant change Confirmed by Florentin Rodriguez ([id number]) on 12/19/2020 10:01:21 AM Referred By: REFERRED SELF Confirmed By:Florentin Rodriguez
[2020-12-19 16:16] LABS: Basophils # (auto) 0.01 K/uL (0-0.2); Basophils % (auto) 0.2 %; Eosinophils # (auto) 0.05 K/uL (0-0.5); Hemoglobin 11.7 g/dL (14.0-18.0); Immature Granulocytes # (auto) 0.01 K/uL (0.00-0.02); Immature Granulocytes % (auto) 0.2 %; Lymphocytes # (auto) 0.69 K/uL (1.2-3.4); Lymphocytes % (auto) 13.4 %; Mean Corpuscular Hemoglobin 29.3 pg (25-34); Mean Corpuscular Hgb Conc 33.4 g/dL (32-36); Mean Corpuscular Volume 87.7 fL (80-100); Mean Platelet Volume 9.4 fL (7.4-10.4); Monocytes # (auto) 0.42 K/uL (0.11-0.59); Monocytes % (auto) 8.2 %; Neutrophils # (auto) 3.96 K/uL (1.4-6.5); Platelet Count 159 K/uL (130-400); RDW Coefficient of Variation 12.8 % (11.5-14.5); RDW Standard Deviation 41.5 fL (36.4-46.3); Red Blood Count 3.99 M/uL (4.7-6.1); White Blood Count 5.14 K/uL (4.8-10.8)
--- NOTE | 2020-12-19 16:24 | Hospitalist Progress Note ---
Date of Service December 19, 2020 Assessment & Plan (1) LYUBOV (acute kidney injury): (2) Head injury: (3) Facial laceration: (4) Polypharmacy: Plan: 70-year-old male with a past medical history of DM2, HTN, recent W[place] with stenting 11/05/2020, chronic back pain, HARJEET presents for evaluation after a fall at home. 1.Fall secondary to polypharmacy versus syncope -Patient with a history of chronic pain, on a complex pain regimen: baclofen 20mg qid, gabapentin 600mg tid and 1200mg qhs, oxycodone 5mg q4h PRN, and oxymorphone 30mg ER. Per patient's he will take a number of these medications concurrently in the evening leading him to "sleep deeply." The patient endorses episodes of incontinence when he is sleeping deeply, falling episodes, and disorientation. Based on the clinical history, and recent cardiac evaluation suspect that he was sleeping deeply leading to his fall versus a true syncopal episode. -Consider syncopal work up; CT head and C-spine show no acute findings -hold oxycodone and oxymorphone -consider optimization of his pain regimen 2. Facial laceration Secondary to the above repaired in the emergency department -Monitor for development of infection -Routine wound care -Wound care consulted and managing wound 3. LYUBOV Patient reported symptoms of dehydration. Creatinine on admission 2.23 received 1 L bolus in the ER, suspect prerenal. -Urine lytes WNL -NSS at 100mL/hr -Repeat BMP in the a.m. -Avoid nephrotoxins 4. HARJEET -nocturnal O2 study ordered -CPAP qhs 5. DM2 History of diabetes, well-controlled as of 11/04/2020 A1c was 6.7. -hold Metformin, defer insulin therapy at present. FENa: DM2 Code Status: Full DVT PPX: Lovenox Dispo: Med/Surg with tele Admission and Anticipated Discharge Date Admission Date: December 19, 2020 Supervising Physician Co-Signing Physician Notes I also saw the patient with the resident physician and confirmed carrion portions of the history and physical examination. Agree with the impression and plan as noted in the resident documentation. In brief this 70-year-old male with noted history of diabetes, hypertension, obstructive sleep apnea not compliant with CPAP, coronary artery disease status post WY approximately 2 months ago, and BPH was admitted through the emergency department earlier today after presenting with a fall at home. The patient apparently fell asleep downstairs; he was awoken by his after he apparently had fallen and suffered a laceration to his forehead. Per the admission, the reported that her is a very deep sleeper and has previously fallen from bed, chairs, and desk while sleeping. Upon my examination, the patient is in the emergency department hold bed. He has no complaints. He is alert and oriented. Exam 179/94, 65, 18, 37 C, 98% on room air Periorbital ecchymosis of the left eye as well as forehead laceration status post suture repair. Ostomy in place without bleeding/drainage/erythema Heart regular rate and rhythm Lungs clear with nonlabored respirations Data Sodium was 130 upon admission, repeat 135. BUN was 27 with a creatinine of 2.23 on admission, it is 18 and 1.23 upon repeat today. Potassium 4.9. Impression and plan Fall with head laceration Question polypharmacy Hyponatremia, resolved LYUBOV, resolving This is likely combination of polypharmacy and untreated obstructive sleep apnea. We will hold oxycodone. Overnight pulse oximetry. Gentle IV fluids Recheck BMP in a.m. PT/OT consultations Subjective Snoring loudly upon entering room. Laceration on head bandaged up. When woken up, pleasant and alert. Retells his story of him getting the hospital. Cannot recall hitting his head on the ground after falling asleep. He is sleepy alot throughout the day and realizes it may be medicine induced but he has been on those medications for so long now. He also says he used to use a CPAP a long time ago but stopped using it after getting C-spine surgery because he thought it was better. Knows he needs to start using it again. Review of Systems Review of Systems: All systems reviewed & are unremarkable except as noted in HPI & below Constitutional: no fever, no chills and no fatigue Respiratory: no cough and no dyspnea Cardiovascular: no chest pain and no palpitations Gastrointestinal: no abdominal pain Physical Exam Constitutional: WD/WN, vitals as above well developed and well nourished; no acute distress Eyes: PERRL, conjunctivae normal, anicteric sclerae ENMT: external ear and nose normal, oropharynx normal Respiratory: normal respiratory effort, lungs clear to auscultation Cardiovascular: RRR, no murmur, no edema Gastrointestinal (Abdomen): normal bowel sounds, soft, nontender, no hepatosplenomegaly Musculoskeletal: no cyanosis or clubbing, extremities motor strength 5/5 Skin: no rashes, warm and dry Laceration on left forehead bandaged up with some surrounding bruising Neurologic: patellar DTR's 2+ bilat, sensation intact Psychiatric: A+Ox3, euthymic affect Results & Data Results & Data ([facility]) Vital Signs (Past 12 Hours) Vital Signs Temp Pulse Pulse Resp BP BP Pulse Ox 12/19/20 15:28 65 18 179/94 H 98 12/19/20 15:00 63 8 L 12/19/20 14:50 62 10 L 12/19/20 14:40 66 12 12/19/20 14:30 65 13 12/19/20 14:20 64 6 L 12/19/20 14:10 64 10 L 100 12/19/20 14:00 66 13 98 12/19/20 13:50 65 12 98 12/19/20 13:40 65 15 97 12/19/20 13:30 65 16 98 12/19/20 13:20 63 20 98 12/19/20 13:10 61 10 L 98 12/19/20 13:00 66 18 98 12/19/20 12:56 78 26 H 97 12/19/20 12:40 64 26 H 12/19/20 12:30 67 21 12/19/20 12:20 64 22 12/19/20 12:10 65 17 12/19/20 12:00 62 15 185/94 H 12/19/20 11:50 64 14 12/19/20 11:40 62 16 12/19/20 11:30 62 5 L 162/86 H 12/19/20 11:20 67 13 12/19/20 11:10 70 20 12/19/20 11:00 68 16 158/85 H 12/19/20 10:50 78 19 12/19/20 10:40 69 13 12/19/20 10:30 76 16 156/89 H 12/19/20 10:20 69 26 H 12/19/20 10:10 79 16 98 12/19/20 10:00 84 17 188/113 H 10/09/21 09:50 93 H 17 12/19/20 09:40 91 H 27 H 92 12/19/20 09:30 90 25 H 163/98 H 12/19/20 09:20 89 18 12/19/20 09:10 88 13 12/19/20 09:00 87 13 182/87 H 12/19/20 08:50 86 16 94 12/19/20 08:40 83 20 96 12/19/20 08:32 72 18 168/107 H 91 12/19/20 08:30 91 H 18 168/107 H 12/19/20 08:20 101 H 94 12/19/20 08:10 90 10 L 12/19/20 08:00 94 H 14 171/108 H 12/19/20 07:50 105 H 22 12/19/20 07:40 103 H 19 12/19/20 07:30 95 H 21 12/19/20 07:28 89 20 166/112 H 99 12/19/20 07:20 100 H 14 12/19/20 07:10 94 H 16 12/19/20 07:00 92 H 13 12/19/20 06:50 88 8 L 12/19/20 06:40 87 12/19/20 06:30 90 20 12/19/20 06:28 86 21 99 12/19/20 06:24 83 18 98 12/19/20 05:50 37 C 85 8 L 170/77 H 98 12/19/20 05:40 86 25 H 12/19/20 05:30 86 21 12/19/20 05:20 90 17 12/19/20 05:10 86 14 12/19/20 05:00 93 H 17 175/108 H 12/19/20 04:50 89 14 12/19/20 04:40 88 13 177/100 H 98 12/19/20 04:30 90 16 Pulse Ox 12/19/20 15:28 12/19/20 15:00 12/19/20 14:50 12/19/20 14:40 12/19/20 14:30 12/19/20 14:20 12/19/20 14:10 12/19/20 14:00 12/19/20 13:50 12/19/20 13:40 12/19/20 13:30 12/19/20 13:20 12/19/20 13:10 12/19/20 13:00 12/19/20 12:56 12/19/20 12:40 12/19/20 12:30 12/19/20 12:20 12/19/20 12:10 12/19/20 12:00 12/19/20 11:50 12/19/20 11:40 12/19/20 11:30 12/19/20 11:20 12/19/20 11:10 12/19/20 11:00 12/19/20 10:50 12/19/20 10:40 12/19/20 10:30 12/19/20 10:20 12/19/20 10:10 12/19/20 10:00 12/19/20 09:50 12/19/20 09:40 12/19/20 09:30 12/19/20 09:20 12/19/20 09:10 12/19/20 09:00 12/19/20 08:50 12/19/20 08:40 12/19/20 08:32 12/19/20 08:30 12/19/20 08:20 12/19/20 08:10 12/19/20 08:00 12/19/20 07:50 12/19/20 07:40 12/19/20 07:30 12/19/20 07:28 12/19/20 07:20 12/19/20 07:10 12/19/20 07:00 12/19/20 06:50 12/19/20 06:40 12/19/20 06:30 12/19/20 06:28 12/19/20 06:24 98 12/19/20 05:50 12/19/20 05:40 12/19/20 05:30 12/19/20 05:20 12/19/20 05:10 12/19/20 05:00 12/19/20 04:50 12/19/20 04:40 12/19/20 04:30 Resident Activity Tracking Resident Involvement: Resident Care Provided Care Provided: Adult Hospital Medicine
[2020-12-19 16:43] LABS: Albumin Globulin Ratio 0.9 (0.9-2); Albumin Level 3.6 gm/dl (3.4-5.0); Bilirubin,Total 0.4 mg/dl (0.2-1); Calcium 8.9 mg/dl (8.5-10.1); Creatinine Clr Calc Pharmacy 58.7 ml/min; Est GFR (Non-African American) 58.7 ml/min; Globulin 3.8 gm/dl (2.5-4.0); Potassium 4.9 mmol/L (3.5-5.1); Total Protein 7.4 gm/dl (6.4-8.2)
[2020-12-19] MEDS ORDERED: INFLUENZA VACCINE HIGH DOSE PF 65+ 0.7 ML SYR IM ONE (16:53)
[2020-12-19] MEDS: SODIUM CHLORIDE 0.9% 1000ML 1,000 ML IV SCH (17:39)
[2020-12-19] MEDS ORDERED: lisinopril 5 MG TAB PO ONE (18:25)
[2020-12-19] MEDS ORDERED: TAMSULOSIN HCL 0.4 MG CAP PO SCH (21:00)
[2020-12-19] MEDS ORDERED: GABAPENTIN 600 MG TAB PO SCH (21:00)
[2020-12-20] MEDS: SODIUM CHLORIDE 0.9% 1000ML 1,000 ML IV SCH ×2 (03:25→12:33)
[2020-12-20 07:40] LABS: Basophils # (auto) 0.01 K/uL (0-0.2); Basophils % (auto) 0.2 %; Eosinophils # (auto) 0.03 K/uL (0-0.5); Eosinophils % (auto) 0.7 %; Hematocrit (blood only) 33.2 % (42-52); Hemoglobin 11.3 g/dL (14.0-18.0); Lymphocytes # (auto) 0.71 K/uL (1.2-3.4); Lymphocytes % (auto) 16.5 %; Mean Corpuscular Hemoglobin 29.4 pg (25-34); Mean Corpuscular Volume 86.2 fL (80-100); Mean Platelet Volume 9.4 fL (7.4-10.4); Monocytes # (auto) 0.29 K/uL (0.11-0.59); Monocytes % (auto) 6.7 %; Neutrophils # (auto) 3.27 K/uL (1.4-6.5); Neutrophils % (auto) 75.9 %; Platelet Count 145 K/uL (130-400); RDW Coefficient of Variation 12.7 % (11.5-14.5); RDW Standard Deviation 40.2 fL (36.4-46.3); Red Blood Count 3.85 M/uL (4.7-6.1); White Blood Count 4.31 K/uL (4.8-10.8)
[2020-12-20] MEDS: ASPIRIN 81 MG ECTAB PO SCH (07:54)
[2020-12-20] MEDS: BACLOFEN 20 MG TAB PO SCH ×2 (07:54→12:31)
[2020-12-20] MEDS: GABAPENTIN 600 MG TAB PO SCH ×2 (07:54→12:31)
[2020-12-20] MEDS: ATORVASTATIN 40 MG TAB PO SCH (07:54)
[2020-12-20] MEDS: CLOPIDOGREL BISULFATE 75 MG TAB PO SCH (07:54)
[2020-12-20] MEDS: METOPROLOL TARTRATE 25 MG TAB PO SCH (07:55)
[2020-12-20] MEDS: POLYETHYLENE (MIRALAX) 17 GM PACK PO SCH (07:58)
[2020-12-20 08:01] LABS: Calcium 8.8 mg/dl (8.5-10.1); Creatinine Clr Calc Pharmacy 78.4 ml/min; Est GFR (African American) 96.6 ml/min; Est GFR (Non-African American) 83.4 ml/min; Potassium 4.3 mmol/L (3.5-5.1)
[2020-12-20] MEDS ORDERED: lisinopril 10 MG TAB PO SCH (09:00)
[2020-12-20] MEDS: ENOXAPARIN INJ 30 MG/0.3 ML SYR SQ SCH (10:24)
[2020-12-20] MEDS: ACETAMINOPHEN 500 MG TAB PO PRN (10:30)
--- NOTE | 2020-12-20 14:40 | Discharge Summary ---
Date of Service December 20, 2020 Admission HPI Per Admitting Provider 70-year-old male with a past medical history of Diabetes, hypertension, recent [place] with stenting 11/05/2020, chronic back pain, HARJEET presents for evaluation after a fall at home. Patient was in his usual state of health denying any constitutional symptoms including fevers or chills, nausea or vomiting, chest pressure chest pain, shortness of breath he reports falling asleep in his office chair. When he woke up and hit his head and was bleeding. His was present when he woke up, she did not note any post ictal confusion, or seizure-like behavior. The patient denied any chest pressure or chest pain. Per report from the nurse patient's notes that the patient takes an excessive amount of pain medication in the evening around bedtime. The patient endorsed this as well, he states he takes the medication for his chronic back pain. His pain medication regimen includes baclofen 20 mg p.o. 4 times daily, gabapentin 600 mg 3 times daily 1200 mg at bedtime, oxycodone 5 mg every 4 hours as needed, oxym orphone 30 mg twice daily. The patient notes that he "sleeps very deeply "when he sleeps deeply he will at times fall, or have episodes of incontinence. Upon presentation to the emergency department he was evaluated and noted to be asymptomatic with the exception of his head injury. CT head was obtained demonstrating hematoma but no acute hemorrhages or intracranial pathology. CT spine was consistent with prior surgeries and no acute findings. Routine labs were obtained CBC was unremarkable, CMP demonstrated an elevated creatinine to 2.23 and elevated glucose to 155. Primary team was consulted for admission. Patient relate a history of similar to that described above. Patient will be admitted for management of polypharmacy, and acute kidney injury. Principal Diagnosis Fall secondary to dehydration, polypharmacy Discharge Exam Constitutional WD/WN, vitals as above well developed and well nourished; no acute distress Eyes PERRL, conjunctivae normal, anicteric sclerae ENMT external ear and nose normal, oropharynx normal Respiratory normal respiratory effort, lungs clear to auscultation Cardiovascular RRR, no murmur, no edema Gastrointestinal (Abdomen) normal bowel sounds, soft, nontender, no hepatosplenomegaly Musculoskeletal no cyanosis or clubbing, extremities motor strength 5/5 Skin no rashes, warm and dry laceration on left forehead above eyebrow with 5-6 stitches, no signs of infection, bandaged Neurologic patellar DTR's 2+ bilat, sensation intact Psychiatric A+Ox3, euthymic affect Discharge Data Allergies Allergy/AdvReac Type Severity Reaction Status Date / Time rosuvastatin AdvReac Severe Myalgia Verified 12/19/20 02:00 Ordered Studies 12/19/20 01:39 CT cervical spine wo con Stat CT head/brain wo con Stat Hospital Course (1) LYUBOV (acute kidney injury): (2) Head injury: (3) Facial laceration: (4) Polypharmacy: 70-year-old male with a past medical history of DM2, HTN, recent ND with stenting 11/05/2020, chronic back pain, HARJEET presents for evaluation after a fall at home. 1.Fall secondary to polypharmacy versus syncope -Patient with a history of chronic pain, on a complex pain regimen: baclofen 20mg qid, gabapentin 600mg tid and 1200mg qhs, oxycodone 5mg q4h PRN, and oxymorphone 30mg ER. Per patient's he will take a number of these medications concurrently in the evening leading him to "sleep deeply." The patient endorses episodes of incontinence when he is sleeping deeply, falling episodes, and disorientation. Based on the clinical history, and recent cardiac evaluation suspect that he was sleeping deeply leading to his fall versus a true syncopal episode. -Consider syncopal work up; CT head and C-spine show no acute findings -held oxycodone and oxymorphone during admission -His fall was most likely secondary to polypharmacy and/or dehydration. Going forward, he should continue to stay well-hydrated throughout the day. We will also make some medication changes: baclofen 20mg TID (instead of 4 times a day), gabapentin 600mg QID (instead of taking a 1200 mg dose at night). He may continue to use his oxycodone and oxymorphone as originally prescribed since he has been on his chronic medications for very long time. At home he should use his cane and ask for assistance in order to avoid falls in the future. Our PT/OT also advised that he do some outpatient physical therapy to improve his gait. 2. Facial laceration Secondary to the above repaired in the emergency department -5-6 stitches with no signs of infection around laceration site -Stitches can come out in 5 to 7 days at his PCPs discretion 3. LYUBOV Patient reported symptoms of dehydration. Creatinine on admission 2.23 received 1 L bolus in the ER, suspect prerenal. -Urine lytes WNL -Patient was receiving fluids in the hospital which ultimately resolved his LYUBOV. Creatinine now within normal limits. 4. HARJEET -nocturnal O2 study performed -CPAP qhs -Results of our nocturnal oxygen study show that he does drop down and oxygen saturation when he sleeps. He should follow-up with his primary care provider and obtain a sleep study. You most likely be a candidate for CPAP as he used to use one in the past. This may also help with his sleepiness. 5. DM2 History of diabetes, well-controlled as of 11/04/2020 A1c was 6.7. -Continue Metformin at home 6. ND w/stent -cont aspirin and plavix Total Time Total Time Spent Total Time Spent (In Minutes): 30 Discharge Plan Discharge Items Patient Disposition: Home - Self-Care Reason For Visit: FALL/LYUBOV Discharge Diagnosis: Fall secondary to dehydration, polypharmacy Condition on Discharge: Fair Activity: Per Instructions section Non-emergency contact: Primary Care Provider Call non-emergency contact if: you have any medication questions, your symptoms worsen, your pain is worsening and you have a fever Follow-up/Referrals: Andreea Sevilla MD [Primary Care Provider] - 12/30/20 12:00 pm Diet: Carb Consistent or DM2 Addtl Attending Provider Instructions: Mr. Borrego, you to fall at home when sleeping in your chair which resulted in a laceration on the left forehead. The laceration was stitched up in the emerge ncy room and labs indicated that you also may have been dehydrated. CT of your head showed no hemorrhage or acute ischemic findings. CT spine showed no new findings as well. It is difficult to reduce what made you falling asleep without you realizing it until after the fact that we think it may be secondary to the combination of your medications and/or being dehydrated. There may also be a factor of sleep apnea which you you used to wear CPAP for. We did a nighttime oxygen study on you last night and it did show that your oxygen levels did tend to drop during your sleep. Going forward listed below are instructions on medication changes as well as further instructions for follow-up. Medications: Gabapentin 600mg PO 4x/day (take 600 mg 4 times a day instead of taking the nighttime dose of 1200 mg) Baclofen 20mg PO TID (take baclofen only 3 times a day instead of 4 times a day) You may continue to take your oxycodone and oxymorphone dose as previously prescribed. Further Instructions: -Please follow-up with your primary care provider this upcoming week. You should discuss your medications and ways to optimize his their use without the side effects of sedation. -Also discuss your sleep apnea and the need for a sleep study. I think it would be very beneficial for you to start wearing a CPAP again at the appropriate dose which can be found from the sleep study. This may prevent you from having these falls. -Also stay very hydrated since when you came in to the ER it was evident that you were extremely dehydrated which may have also made you sleepy and cause you to fall out of your chair. -Stitches can be removed by your primary care provider at their discretion Pending Studies at Discharge: No Stand-Alone Forms: My [facility] Medications and DC Order Prescriptions: New gabapentin 600 mg Tablet 600 mg PO QID Qty: 1 RF: 0 baclofen 20 mg Tablet 20 mg PO TID Qty: 1 RF: 0 Continued tamsulosin 0.4 mg capsule 0.4 mg PO HS RF: 0 acetaminophen 500 mg capsule 500 mg PO Q8H PRN (Reason: Pain) RF: 0 oxymorphone 30 mg tablet extended release 12 hr 30 mg PO BID Qty: 14 RF: 0 clopidogrel 75 mg tablet 75 mg PO QAM Qty: 90 RF: 3 atorvastatin 40 mg tablet 40 mg PO QAM Qty: 90 RF: 3 metformin 500 mg tablet 500 mg PO BID Qty: 180 RF: 1 lisinopril [Zestril] 5 mg tablet 5 mg PO QAM Qty: 90 RF: 1 metoprolol tartrate 25 mg tablet 25 mg PO BID Qty: 180 RF: 1 vitamin S60-sdhyg acid 500-400 mcg tablet 1 tab PO DAILY RF: 0 oxycodone 5 mg tablet 5 mg PO Q4H PRN (Reason: Pain) RF: 0 naloxone 4 mg/actuation spray,non-aerosol 1 spray intranasal Q3M PRN (Reason: OVER SEDATION) RF: 0 aspirin 81 mg Tablet,Delayed Release (Dr/Ec) 81 mg PO QAM Qty: 30 RF: 0 Discontinued gabapentin 600 mg tablet 600 mg PO .COMPLEX Qty: 450 RF: 1 baclofen 20 mg tablet 20 mg PO QID 90 Days Qty: 360 RF: 1 Discharge Orders: Discharge Order (Routine); Ordered 12/20/20 Ordered By: Morgan Herrera Admission Data Admit Date/Time: 12/19/20 05:10 Attending Provider: Liam Ortez Admit Provider: Eitan Varela I. Primary Care Provider: Andreea Sevilla Other Interventions: Discharge Summary Assessment (RN) Last Done: 12/20/20 14:47 Supervising Physician Co-Signing Physician Notes I also saw the patient with the resident physician and confirmed carrion portions of the history and physical examination. Agree with the impression and plan as noted in the resident documentation. Upon exam this morning, the patient is alert and oriented. He has been seen by physical therapy, report reviewed. He does note some increased back pain with holding of some of his pain medications. Exam 161/96, HR 83, afebrile Periorbital ecchymosis of the left eye as well as forehead laceration status post suture repair. The wound is examined; clean, dry, and intact. Heart regular rate and rhythm Lungs clear with nonlabored respirations Data Hemoglobin 11.3, platelet count 145 Sodium 134, potassium 4.3, BUN 13, creatinine 0.92 Impression and plan Fall with head laceration Question polypharmacy Hyponatremia, resolved LYUBOV, resolved Hypertension with elevated blood pressure, suspect secondary to pain Resume his home doses of oxycodone Decrease baclofen from 4 times daily to 3 times daily Decrease night dose of gabapentin from 1200 mg to 600 mg PCP follow-up in 1 week to reevaluate medication changes, blood pressure, and remove sutures Recommend reevaluation obstructive sleep apnea/resumption of CPAP Resident Activity Tracking Resident Involvement: Resident Care Provided Care Provided: Adult Hospital Medicine
== END 2020-12-20 15:41 | disposition home or self-care (01) | DRG 683 ==
LOC: ED 23:33 → EDINP 12-19 05:10 → INTOOBSV 12-19 05:10 → SUATTDRO 12-19 05:10 → 2N 12-19 15:14

== ENCOUNTER 2021-04-19 17:23 | Inpatient (IN) ==
[~2021-04-19 17:23] MED LIST changes: -ATV1 PO; -GLC/500 PO; -LIDO1PAD2 EX; -LISI-725 PO; -LRS20 PO; -MELO7.5T5 PO; -NRN600 PO; -OXYC-90 PO; -OXYM1TAB42 PO; +RAPID SEQUENCE INDUCTION BAG ONE
[2021-04-19] MEDS ORDERED: PANTOPRAZOLE BOLUS/DRIP 1 EA IV STA (17:24)
[2021-04-19] MEDS ORDERED: PANTOprazole 80 MG in DEXTROSE 5% 100 ML IV ONE (17:24)
[2021-04-19] MEDS ORDERED: FAMOTIDINE 20MG IV PUSH 20 MG/5 ML SYR IV STA (17:24)
[2021-04-19] MEDS ORDERED: SODIUM CHLORIDE 0.9% 1000ML 1,000 ML IV STA (17:24)
[2021-04-19] MEDS ORDERED: SODIUM CHLORIDE 0.9% 250 ML IV PRN (17:26)
[2021-04-19] MEDS ORDERED: ONDANSETRON INJ 2 MG/ML 2 ML VIAL ONE (17:32)
[2021-04-19] MEDS ORDERED: ONDANSETRON INJ 2 MG/ML 2 ML VIAL IV ONE (17:45)
[2021-04-19 17:53] LABS: Hematocrit (blood only) 38.4 % (42-52); Hemoglobin 13.1 g/dL (14.0-18.0); Immature Granulocytes # (auto) 0.04 K/uL (0.00-0.02); Immature Granulocytes % (auto) 0.3 %; Lymphocytes # (auto) 1.06 K/uL (1.2-3.4); Lymphocytes % (auto) 8.3 %; Mean Corpuscular Hgb Conc 34.1 g/dL (32-36); Mean Corpuscular Volume 88.1 fL (80-100); Mean Platelet Volume 10.1 fL (7.4-10.4); Monocytes # (auto) 0.31 K/uL (0.11-0.59); Monocytes % (auto) 2.4 %; Neutrophils # (auto) 11.38 K/uL (1.4-6.5); Platelet Count 264 K/uL (130-400); RDW Coefficient of Variation 13.3 % (11.5-14.5); RDW Standard Deviation 43.3 fL (36.4-46.3); Red Blood Count 4.36 M/uL (4.7-6.1); White Blood Count 12.79 K/uL (4.8-10.8)
[2021-04-19 17:56] LABS: iSTAT Creatinine 1.7 mg/dl (0.6-1.3); iSTAT Hemoglobin 13.6 g/dl (14.0-18.0); iSTAT Ionized Calcium 0.98 mmol/l (1.12-1.32); iSTAT Potassium 4.4 mmol/L (3.3-5.0)
[2021-04-19] MEDS ORDERED: PIPERACILLIN/TAZOBACTAM 4.5 GM/120 ML BAG IV ONE (18:04)
[2021-04-19] MEDS ORDERED: SODIUM CHLORIDE 0.9% 1000ML 1,000 ML IV ONE ×2 (18:04→18:36)
[2021-04-19] MEDS ORDERED: PIPERACILL/TAZOBAC CONSULT ACTIVE PRN (18:04)
--- NOTE | 2021-04-19 18:05 | XRay Report ---
Supine XR chest 1V portable CLINICAL HISTORY: syncope COMPARISON STUDY: Chest radiograph November 03, 2020. FINDINGS: Postoperative findings within the spine are noted. There is no pneumothorax or pleural effu alonso. Cardiomediastinal silhouette is stable. Left basilar opacity is present. There may also be righ t infrahilar opacity. IMPRESSION: Bibasilar opacities, greater on the left. The findings favor pneumonia or aspiration pne umonitis. Radiographic follow up to ensure resolution is recommended. ACT 112: Negative or not required by law. Electronically signed by: Salvador Sim M.D. 04/19/2021 6:04 PM
[2021-04-19] MEDS ORDERED: OPTIRAY 320 125ml IV ONE (18:06)
[2021-04-19 18:07] LABS: INR 1.2 (0.9-1.1); Partial Thromboplastin Ratio 1.1; Partial Thromboplastin Time 28.3 Seconds (21.0-31.0); Prothrombin Time 11.6 Seconds (9.0-12.0)
--- NOTE | 2021-04-19 18:16 | CT Scan Report ---
CT OF THE HEAD WITHOUT CONTRAST CLINICAL HISTORY: Syncope. COMPARISON STUDY: Head CT December 19, 2020. TECHNIQUE: Helical axial images of the head were obtained without IV contrast. Automated exposure con trol was utilized for the study. A dose lowering technique was utilized adhering to the principles o f ALARA. FINDINGS: No acute intracranial hemorrhage, midline shift or mass effect is present. White matter hyp odensities reflect small vessel disease. The ventricular system is unremarkable. The basal cisterns a re patent. No extra-axial collections are present. There are no findings to suggest acute dural sinus thrombosis or acute territorial infarct. No significant calvarial abnormalities are present. Visuali zed portions of the sinuses and mastoid air cells are clear. Postoperative findings within the sinuse s are noted. IMPRESSION: 1. No acute intracranial findings. 2. No calvarial fracture. ACT 112: Negative or not required by law. Electronically signed by: Salvador Sim M.D. 04/19/2021 6:15 PM
--- NOTE | 2021-04-19 18:19 | CT Scan Report ---
CT OF THE CERVICAL SPINE WITHOUT CONTRAST CLINICAL HISTORY: fall COMPARISON STUDY: Cervical spine CT December 19, 2020. TECHNIQUE: Helical axial images of the cervical spine were obtained without IV contrast. Sagittal a nd coronal reconstructions were viewed. Automated exposure control was utilized for the study. A do se lowering technique was utilized adhering to the principles of ALARA. FINDINGS: There are stable postoperative findings following C4-C7 anterior discectomy and fusion. The re also postoperative findings consistent with posterior fusion at these levels. Alignment of the cer vical spine is anatomic. Vertebral body heights are maintained. No acute cervical spine fracture or s ubluxation is present. There is no prevertebral edema. Facet joints are intact. Compression deformit y of the superior plate of T1 is unchanged since prior examination. IMPRESSION: No acute cervical spine fracture or subluxation. Stable postoperative findings within the cervical spine. ACT 112: Negative or not required by law. Electronically signed by: Salvador Sim M.D. 04/19/2021 6:17 PM
--- NOTE | 2021-04-19 18:23 | Emergency Department Note ---
Impression & Plan SBO (small bowel obstruction), Acute upper gastrointestinal bleeding, Hypoxia, Syncope, Contusion of face, LYUBOV (acute kidney injury), Metabolic acidosis ED Provider Note NAME: RED VILLARREAL AGE: 71 SEX: M : 1950 ARRIVES VIA: Ambulance INFORMANT: Patient, EMS, the patient significant other ED PROVIDER(S): Florentin Chen DO CHIEF COMPLAINT: Syncope HPI: The patient is a 71-year-old male who presented to emergency department via ambulance. He received a prehospital notification about the patient. The patient was hypotensive and had emesis with coffee grounds. The patient has a history of bowel cancer in the past. He does have an ostomy. His significant other states that she heard him have a syncopal episode earlier today. She helped him up and he was checked on by his daughter later in the day. The tammi ent was doing okay but then tonight had another episode of nausea and vomiting he also had another syncopal episode. He was deal. The patient's significant other called the primary care physician and they were advised to come to the emergency department. The patient arrived via ambulance. The patient was brought directly in room to B1. The patient denies having any headache but does have signs of trauma over his left eye. The patient denies having any neck or back pain. He denies having any decreased output in the ostomy. He does complain of nausea. He has had no change in his medications. The patient had a heart attack in December of last year. He is taking his outpatient medications. He does take Mobic. He is also on Plavix. ROS: See above HPI for pertinent positives & negatives. A total of 10 systems reviewed and were otherwise negative. PAST MEDICAL HISTORY: See Below PAST SURGICAL HISTORY: See Below FAMILY HISTORY: See Below SOCIAL HISTORY: See Below HOME MEDICATIONS: See Below ALLERGIES: See Below VITALS: See Below PHYSICAL EXAMINATION: GENERAL: The patient is awake and alert. He looks very anxious appearing and appears to be in extremitas. EYES: The conjunctivae are clear. The pupils are round and reactive. EARS, NOSE, MOUTH AND THROAT: The nose is without any evidence of any deformity. Mucous membranes are dry. NECK: The neck is nontender and supple. RESPIRATORY: Shallow respirations were noted throughout. Diminished breath sounds are noted at both bases. CARDIOVASCULAR: Tachycardic rate with regular rhythm was noted. There is no definite murmur GASTROINTESTINAL: The abdomen is soft and mildly distended. There is diffuse tenderness to palpation. There is guarding in the upper abdomen. Ostomy was noted and does not appear to have any liquid stool. MUSCULOSKELETAL/EXTREMITIES: There is no evidence of gross deformity full range of motion is noted in the hips and shoulders. SKIN: Skin is ashen and diaphoretic. There is no significant pedal edema. NEUROLOGIC: Patient is awake alert and oriented x3. MEDICAL DECISION MAKING: The patient is a 71-year-old male who presented to emergency department by ambulance. The patient was extremitas when he initially arrived. He had syncope this morning but then started having vomiting which was coffee-ground in nature. The patient had tachycardia and hypotension. He was resuscitated initially upon arrival with IV fluids. He was further treated with IV antibiotics IV proton pump inhibitors and IV H2 blockers. An NG tube was placed as well as a Cord[place] catheter. The patient was reevaluated multiple times. He was placed on supplemental oxygen for hypoxia. I discussed the patient's laboratory and radiographic studies with him and his significant other. He was found to have signs of bowel obstruction. After NG tube was placed a large amount of dark emesis was removed. The patient was feeling much better. I di scussed his case with the on-call general surgeon. They evaluated the patient's radiographic studies. I also discussed this case with the on-call [facility] hospitalist. They have agreed to evaluate the patient in the emergency department for further management and disposition. Triage Nursing notes reviewed. Prior medical records reviewed Vital Signs: reviewed and remarkable for tachycardia and hypotension. The patient was also found to be hypoxic. Differential diagnosis: Diverticulosis, AVM, coagulopathy, colitis, inflammatory bowel disease, malignancy, [place] tear, esophagitis, peptic ulcer disease, variceal bleed, gastritis, epistaxis, fissure, hemorrhoids, as well as other pathologies. ER treatment provided: See below Diagnostics interpreted by me: ECG: EKG was obtained in the emergency department. My interpretation is sinus tachycardia at 150 bpm. Inferior Q waves were noted. There was no acute ST segment abnormalities noted. This was compared to a tracing from December 192020. There is an increase in the rate otherwise no changes. Cardiac Monitoring: An order was placed for continuous cardiac monitoring. The monitor shows a rate of 116 bpm with sinus rhythm. Laboratory studies: As stated above and show below. Imaging studies: See below Consultation(s): I discussed this case with Dr. Hughes who is on-call for general surgery. He will evaluate the patient in the emergency department I discussed this case with Dr. Varela who is on-call for the [facility] group. ED COURSE: Procedures: Femoral Central Venous Catheter Indication: Hypotension and GI bleeding Catheter Type: Triple-lumen Location: Right femoral vein Verbal consent was obtained after the risks and benefits were explained, including but not limited to intra-abdominal injury, vessel injury, bleeding, scarring, infection, pain, and bone/joint/nerve damage. At this time, the risks of the procedure are less than the risks of NOT performing the procedure. A time out was taken and the correct patient and site identified. The patient was placed in the supine position and the skin was prepped in the standard fashion with chlorhexidine and full sterile drapes applied. The proper landmarks were identified with palpation, and the needle was inserted through the skin in the standard fashion. The needle was carefully advanced into blood vessel lumen with ultrasound guidance. The guidewire was placed uneventfully. The vessel is dilated and the catheter was placed. Secured into place. There was good blood return from all ports. The patient tolerated the procedure well and there were no complications. Critical Care: I have personally spent greater than 55 minutes of critical care time in the direct management of this patient. This includes bedside care, interpretation of diagnostic studies, and testing, discussion with consultants, patient, and family members, and other required patient management activities. This 55 minutes is in excess of all separately billable procedures. Past Med/Surg History Medical History LYUBOV (acute kidney injury) Anxiety disorder BPH with obstruction/lower urinary tract symptoms CAD (coronary artery disease), marshall coronary artery Chronic back pain DM2 (diabetes mellitus, type 2) Gastroesophageal reflux Hypertension Hyponatremia Obstructive sleep apnea Osteoarthritis Peripheral neuropathy ST elevation (STEMI) myocardial infarction Statin myopathy Surgical History H/O inguinal hernia repair H/O resection of rectum History of rectal surgery Previous back surgery S/P cervical spinal fusion S/P tonsillectomy and adenoidectomy Family History Father Cardiovascular disease Cardiac disorder Prostate cancer Mother Dementia Diabetes Other Hypertension No significant family history Denies family history of Ovarian cancer Myocardial infarction Breast cancer Colorectal cancer Social History Smoking Status: Former smoker Age Started Using Tobacco: 17; Age Quit Using Tobacco: 24; packs per day: 1; Years Smoked: 7; Cigarettes Per Day: 20; Number of Years Since Quit: 46; Second Hand Exposure: No; Hx Alcohol Use: No Hx Substance Use: No Preferred Language: Sudanese Communication Ability: Effective Visual Impairment: No Limitations Hearing Ability: Normal 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 Beliefs That Will Affect Care: None marital status: Current Living Situation: Spouse current occupational status: retired How many Children do You have: 4 Feels Safe at Home: Yes Childhood Exposure to Second-Hand Smoke: No caffeine: Yes during the past year weight has: remained stable Dental Care, Regularly: No Physical Activity Frequency: Daily Seatbelt Use: always Sunscreen Use: No Assistive Devices: Cane and Glasses Allergies Allergies Allergy/AdvReac Type Severity Reaction Status Date / Time rosuvastatin AdvReac Severe Myalgia Verified 04/19/21 18:31 Home Meds Home Medications Medication Instructions Recorded Confirmed acetaminophen 500 mg capsule 500 mg PO Q8H PRN cap 10/12/20 04/19/21 naloxone 4 mg/actuation nasal spray 1 spray INTRANASAL Q3M PRN 12/19/20 04/19/21 amlodipine 10 mg tablet 10 mg PO QAM 04/19/21 04/19/21 loratadine 10 mg tablet (Claritin) 10 mg PO DAILY PRN 04/19/21 04/19/21 multivitamin 1 tab PO DAILY 04/19/21 04/19/21 Previous Rx's Medication Instructions Recorded aspirin 81 mg tablet,delayed 81 mg PO QAM #30 tab 11/05/20 release atorvastatin 40 mg tablet 40 mg PO QAM #90 tab 11/30/20 clopidogrel 75 mg tablet 75 mg PO QAM #90 tab 11/30/20 metformin 500 mg tablet 500 mg PO BID #180 tab 12/08/20 lisinopril 5 mg tablet (Zestril) 5 mg PO QAM #90 tab 12/16/20 metoprolol tartrate 25 mg tablet 25 mg PO BID #180 tab 12/16/20 baclofen 20 mg tablet 20 mg PO TID #270 tab 01/13/21 gabapentin 600 mg tablet 600 mg PO QID #360 tab 01/13/21 oxycodone 5 mg tablet 5 mg PO Q4H PRN #540 tab 01/15/21 oxymorphone 30 mg tablet,extended 30 mg PO BID #180 tab 01/15/21 release,12 hr meloxicam 15 mg tablet 15 mg PO DAILY #30 tab 03/10/21 tamsulosin 0.4 mg capsule 0.4 mg PO HS #90 cap 04/06/21 Results & Data (ED) Vital Signs Vital Signs - 24 hr 04/19/21 17:34 04/19/21 17:40 04/19/21 17:44 Temperature 36.7 C Temperature Source Oral Pulse Rate 146 H 134 H 133 H Pulse Rate [Finger] Pulse Rate from SpO2 Sensor 146 H 226 H 212 H Pulse Rhythm Regular Pulse Strength Weak Respiratory Rate 52 H 41 H 46 H Respiratory Effort / Characteristics Labored Respiratory Depth Normal Respiratory Pattern Tachypnea Blood Pressure 107/80 Blood Pressure [Right Arm] Blood Pressure Mean 89 Blood Pressure Mean [Right Arm] Blood Pressure Position Lying Blood Pressure Position [Right Arm] Pulse Oximetry 93 71 L 77 L Oxygen Delivery Method Room Air Oxygen Flow Rate Sepsis Recent Fever Within 48 Hours No Sepsis New/Unexplained Change in Mental Status No Sepsis Action Taken by Nursing Physician Notified 04/19/21 17:45 04/19/21 18:09 04/19/21 18:10 Temperature Temperature Source Pulse Rate 131 H 123 H 119 H Pulse Rate [Finger] Pulse Rate from SpO2 Sensor 128 H 124 H 121 H Pulse Rhythm Pulse Strength Respiratory Rate 44 H 25 H 24 Respiratory Effort / Characteristics Respiratory Depth Respiratory Pattern Blood Pressure 90/65 L 118/65 105/76 Blood Pressure [Right Arm] Blood Pressure Mean 73 82 85 Blood Pressure Mean [Right Arm] Blood Pressure Position Blood Pressure Position [Right Arm] Pulse Oximetry 100 100 100 Oxygen Delivery Method Oxygen Flow Rate Sepsis Recent Fever Within 48 Hours Sepsis New/Unexplained Change in Mental Status Sepsis Action Taken by Nursing 04/19/21 18:20 04/19/21 18:25 04/19/21 18:30 Temperature Temperature Source Pulse Rate 123 H 126 H 128 H Pulse Rate [Finger] Pulse Rate from SpO2 Sensor 123 H 132 H 128 H Pulse Rhythm Pulse Strength Respiratory Rate 29 H 24 23 Respiratory Effort / Characteristics Respiratory Depth Respiratory Pattern Blood Pressure 109/78 121/69 Blood Pressure [Right Arm] Blood Pressure Mean 88 86 Blood Pressure Mean [Right Arm] Blood Pressure Position Blood Pressure Position [Right Arm] Pulse Oximetry 100 84 L 97 Oxygen Delivery Method Oxygen Flow Rate Sepsis Recent Fever Within 48 Hours Sepsis New/Unexplained Change in Mental Status Sepsis Action Taken by Nursing 04/19/21 18:35 04/19/21 18:40 04/19/21 18:45 Temperature Temperature Source Pulse Rate 126 H 128 H 124 H Pulse Rate [Finger] Pulse Rate from SpO2 Sensor 129 H 131 H 124 H Pulse Rhythm Pulse Strength Respiratory Rate 24 26 H 27 H Respiratory Effort / Characteristics Respiratory Depth Respiratory Pattern Blood Pressure 109/78 104/74 Blood Pressure [Right Arm] Blood Pressure Mean 88 84 Blood Pressure Mean [Right Arm] Blood Pressure Position Blood Pressure Position [Right Arm] Pulse Oximetry 92 100 100 Oxygen Delivery Method Oxygen Flow Rate 3 Sepsis Recent Fever Within 48 Hours Sepsis New/Unexplained Change in Mental Status Sepsis Action Taken by Nursing 04/19/21 19:00 04/19/21 19:10 04/19/21 19:13 Temperature Temperature Source Pulse Rate 121 H 124 H Pulse Rate [Finger] 122 H Pulse Rate from SpO2 Sensor 122 H Pulse Rhythm Pulse Strength Respiratory Rate 23 25 H 22 Respiratory Effort / Characteristics Respiratory Depth Normal Respiratory Pattern Blood Pressure 112/67 Blood Pressure [Right Arm] 112/67 Blood Pressure Mean 82 Blood Pressure Mean [Right Arm] 82 Blood Pressure Position Blood Pressure Position [Right Arm] Lying Pulse Oximetry 92 93 93 Oxygen Delivery Method Nasal Cannula Nasal Cannula Nasal Cannula Oxygen Flow Rate 4 4 4 Sepsis Recent Fever Within 48 Hours Sepsis New/Unexplained Change in Mental Status Sepsis Action Taken by Nursing 04/19/21 19:30 Temperature Temperature Source Pulse Rate 116 H Pulse Rate [Finger] Pulse Rate from SpO2 Sensor 116 H Pulse Rhythm Pulse Strength Respiratory Rate 23 Respiratory Effort / Characteristics Respiratory Depth Respiratory Pattern Blood Pressure 108/73 Blood Pressure [Right Arm] Blood Pressure Mean 84 Blood Pressure Mean [Right Arm] Blood Pressure Position Blood Pressure Position [Right Arm] Pulse Oximetry 94 Oxygen Delivery Method Nasal Cannula Oxygen Flow Rate 4 Sepsis Recent Fever Within 48 Hours Sepsis New/Unexplained Change in Mental Status Sepsis Action Taken by Intermediate Medications Current Medication List: was personally reviewed by me Laboratory Data Attestation: I reviewed the patient's lab results. Result diagrams: 04/19/21 17:41 04/19/21 17:41 Lab Results 04/19/21 04/19/21 04/19/21 Range/Units 17:41 17:41 17:41 WBC 12.79 H (4.8-10.8) K/uL RBC 4.36 L (4.7-6.1) M/uL Hgb 13.1 L (14.0-18.0) g/dL POC Hgb (14.0-18.0) g/dl Hct 38.4 L (42-52) % POC Hct (42-52) % MCV 88.1 (80-100) fL MCH 30.0 (25-34) pg MCHC 34.1 (32-36) g/dL RDW Std Deviation 43.3 (36.4-46.3) fL RDW Coeff of Arturo 13.3 (11.5-14.5) % Plt Count 264 (130-400) K/uL MPV 10.1 (7.4-10.4) fL Immature Gran % (Auto) 0.3 % Neut % (Auto) 89.0 % Lymph % (Auto) 8.3 % [place] % (Auto) 2.4 % Eos % (Auto) 0.0 % Baso % (Auto) 0.0 % Neut # (Auto) 11.38 H (1.4-6.5) K/uL Lymph # (Auto) 1.06 L (1.2-3.4) K/uL [place] # (Auto) 0.31 (0.11-0.59) K/uL Eos # (Auto) 0.00 (0-0.5) K/uL Baso # (Auto) 0.00 (0-0.2) K/uL Immature Gran # (Auto) 0.04 H (0.00-0.02) K/uL PT 11.6 (9.0-12.0) Seconds INR 1.2 H (0.9-1.1) APTT 28.3 (21.0-31.0) Seconds PTT Ratio 1.1 POC Sodium (135-144) mmol/L Sodium (136-145) mmol/L POC Potassium (3.3-5.0) mmol/L Potassium (3.5-5.1) mmol/L POC Chloride (101-112) mmol/L Chloride (98-107) mmol/L Carbon Dioxide (21-32) mmol/L POC Total CO2 (24-31) mmol/L Anion Gap (3-11) POC Anion Gap (16-25) mmol/L POC BUN (7-18) mg/dl BUN (6-23) mg/dl Creatinine (0.6-1.4) mg/dl POC Creatinine (0.6-1.3) mg/dl Est Cr Clr Drug Dosing ml/min Est GFR ( Amer) ml/min Est GFR (Non-Af Amer) ml/min BUN/Creatinine Ratio (10-20) Glucose (70-99(Fasting)) mg/dl POC Glucose (other) (70-99) mg/dl Calcium (8.5-10.1) mg/dl POC Ioniz Calcium Bre (1.12-1.32) mmol/l Total Bilirubin (0.2-1.0) mg/dl AST (13-39) U/L ALT (7-52) U/L Alkaline Phosphatase (34-104) U/L Troponin I (0-0.04) ng/ml Total Protein (6.0-8.3) gm/dl Albumin (3.4-5.0) gm/dl Globulin (2.5-4.0) gm/dl Albumin/Globulin Ratio (0.9-2) Lipase (11-82) U/L Urine Color Urine Appearance (Clear) Urine pH (4.5-7.5) Ur Specific [place] (1.000-1.030) Urine Protein (Negative) Urine Glucose (UA) (Negative) Urine Ketones (Negative) Urine Blood (Negative) Urine Nitrite (Negative) Urine Bilirubin (Negative) Urine Urobilinogen (Negative) Ur Leukocyte Esterase (Negative) Urine WBC (Auto) (0-5) /hpf Urine RBC (Auto) (0-4) /hpf U Hyaline Cast (Auto) (0-5) /lpf U Epithel Cells (Auto) (0-5) /lpf Urine Bacteria (Auto) (Negative) SARS-CoV-2, RNA, NAAT (NEGATIVE) Blood Type A Positive Antibody Screen NEGATIVE Crossmatch See Detail 04/19/21 04/19/21 04/19/21 Range/Units 17:41 17:42 18:25 WBC (4.8-10.8) K/uL RBC (4.7-6.1) M/uL Hgb (14.0-18.0) g/dL POC Hgb 13.6 L (14.0-18.0) g/dl Hct (42-52) % POC Hct 40 L (42-52) % MCV (80-100) fL MCH (25-34) pg MCHC (32-36) g/dL RDW Std Deviation (36.4-46.3) fL RDW Coeff of Arturo (11.5-14.5) % Plt Count (130-400) K/uL MPV (7.4-10.4) fL Immature Gran % (Auto) % Neut % (Auto) % Lymph % (Auto) % [place] % (Auto) % Eos % (Auto) % Baso % (Auto) % Neut # (Auto) (1.4-6.5) K/uL Lymph # (Auto) (1.2-3.4) K/uL [place] # (Auto) (0.11-0.59) K/uL Eos # (Auto) (0-0.5) K/uL Baso # (Auto) (0-0.2) K/uL Immature Gran # (Auto) (0.00-0.02) K/uL PT (9.0-12.0) Seconds INR (0.9-1.1) APTT (21.0-31.0) Seconds PTT Ratio POC Sodium 128 L (135-144) mmol/L Sodium 128 L (136-145) mmol/L POC Potassium 4.4 (3.3-5.0) mmol/L Potassium 4.3 (3.5-5.1) mmol/L POC Chloride 90 L (101-112) mmol/L Chloride 88 L (98-107) mmol/L Carbon Dioxide 18 L (21-32) mmol/L POC Total CO2 20 L (24-31) mmol/L Anion Gap 22 H (3-11) POC Anion Gap 24.0 (16-25) mmol/L POC BUN 32 H (7-18) mg/dl BUN 31 H (6-23) mg/dl Creatinine 1.75 H (0.6-1.4) mg/dl POC Creatinine 1.7 H (0.6-1.3) mg/dl Est Cr Clr Drug Dosing 40.6 ml/min Est GFR ( Amer) 44.1 ml/min Est GFR (Non-Af Amer) 38.1 ml/min BUN/Creatinine Ratio 17.7 (10-20) Glucose 193 H (70-99(Fasting)) mg/dl POC Glucose (other) 197 H (70-99) mg/dl Calcium 8.4 L (8.5-10.1) mg/dl POC Ioniz Calcium Bre 0.98 L (1.12-1.32) mmol/l Total Bilirubin 1.3 H (0.2-1.0) mg/dl AST 19 (13-39) U/L ALT 9 (7-52) U/L Alkaline Phosphatase 68 (34-104) U/L Troponin I 0.05 H* (0-0.04) ng/ml Total Protein 7.0 (6.0-8.3) gm/dl Albumin 3.9 (3.4-5.0) gm/dl Globulin 3.1 (2.5-4.0) gm/dl Albumin/Globulin Ratio 1.3 (0.9-2) Lipase 83 H (11-82) U/L Urine Color Dark Yellow Urine Appearance Clear (Clear) Urine pH 6.0 (4.5-7.5) Ur Specific [place] 1.020 (1.000-1.030) Urine Protein Trace H (Negative) Urine Glucose (UA) Negative (Negative) Urine Ketones Trace H (Negative) Urine Blood Negative (Negative) Urine Nitrite Negative (Negative) Urine Bilirubin Negative (Negative) Urine Urobilinogen Negative (Negative) Ur Leukocyte Esterase Negative (Negative) Urine WBC (Auto) 1-5 (0-5) /hpf Urine RBC (Auto) 0-4 (0-4) /hpf U Hyaline Cast (Auto) 1-5 (0-5) /lpf U Epithel Cells (Auto) 5-10 H (0-5) /lpf Urine Bacteria (Auto) Negative (Negative) SARS-CoV-2, RNA, NAAT (NEGATIVE) Blood Type Antibody Screen Crossmatch 04/19/21 Range/Units 18:29 WBC (4.8-10.8) K/uL RBC (4.7-6.1) M/uL Hgb (14.0-18.0) g/dL POC Hgb (14.0-18.0) g/dl Hct (42-52) % POC Hct (42-52) % MCV (80-100) fL MCH (25-34) pg MCHC (32-36) g/dL RDW Std Deviation (36.4-46.3) fL RDW Coeff of Arturo (11.5-14.5) % Plt Count (130-400) K/uL MPV (7.4-10.4) fL Immature Gran % (Auto) % Neut % (Auto) % Lymph % (Auto) % [place] % (Auto) % Eos % (Auto) % Baso % (Auto) % Neut # (Auto) (1.4-6.5) K/uL Lymph # (Auto) (1.2-3.4) K/uL [place] # (Auto) (0.11-0.59) K/uL Eos # (Auto) (0-0.5) K/uL Baso # (Auto) (0-0.2) K/uL Immature Gran # (Auto) (0.00-0.02) K/uL PT (9.0-12.0) Seconds INR (0.9-1.1) APTT (21.0-31.0) Seconds PTT Ratio POC Sodium (135-144) mmol/L Sodium (136-145) mmol/L POC Potassium (3.3-5.0) mmol/L Potassium (3.5-5.1) mmol/L POC Chloride (101-112) mmol/L Chloride (98-107) mmol/L Carbon Dioxide (21-32) mmol/L POC Total CO2 (24-31) mmol/L Anion Gap (3-11) POC Anion Gap (16-25) mmol/L POC BUN (7-18) mg/dl BUN (6-23) mg/dl Creatinine (0.6-1.4) mg/dl POC Creatinine (0.6-1.3) mg/dl Est Cr Clr Drug Dosing ml/min Est GFR ( Amer) ml/min Est GFR (Non-Af Amer) ml/min BUN/Creatinine Ratio (10-20) Glucose (70-99(Fasting)) mg/dl POC Glucose (other) (70-99) mg/dl Calcium (8.5-10.1) mg/dl POC Ioniz Calcium Bre (1.12-1.32) mmol/l Total Bilirubin (0.2-1.0) mg/dl AST (13-39) U/L ALT (7-52) U/L Alkaline Phosphatase (34-104) U/L Troponin I (0-0.04) ng/ml Total Protein (6.0-8.3) gm/dl Albumin (3.4-5.0) gm/dl Globulin (2.5-4.0) gm/dl Albumin/Globulin Ratio (0.9-2) Lipase (11-82) U/L Urine Color Urine Appearance (Clear) Urine pH (4.5-7.5) Ur Specific [place] (1.000-1.030) Urine Protein (Negative) Urine Glucose (UA) (Negative) Urine Ketones (Negative) Urine Blood (Negative) Urine Nitrite (Negative) Urine Bilirubin (Negative) Urine Urobilinogen (Negative) Ur Leukocyte Esterase (Negative) Urine WBC (Auto) (0-5) /hpf Urine RBC (Auto) (0-4) /hpf U Hyaline Cast (Auto) (0-5) /lpf U Epithel Cells (Auto) (0-5) /lpf Urine Bacteria (Auto) (Negative) SARS-CoV-2, RNA, NAAT NEGATIVE (NEGATIVE) Blood Type Antibody Screen Crossmatch Administered Medications Pantoprazole Sodium 40 mg/ (Dextrose) 100 mls @ 20 mls/hr IV Q5H JEY Stop: 05/19/21 17:44 Last Admin: 04/19/21 18:44 Dose: 8 mg/hr, 20 mls/hr Documented by: [id number] Lactated Ringer's (Lr) 1,000 mls @ 999 mls/hr IV .Q1H1M ONE Stop: 04/19/21 20:10 Last Admin: 04/19/21 19:16 Dose: 999 mls/hr Documented by: [id number] Discontinued Medications Sodium Chloride (Nss 1000ml) 1,000 mls @ 999 mls/hr IV .Q1H1M STA Stop: 04/19/21 18:24 Last Infusion: 04/19/21 19:09 Dose: 0 mls/hr Documented by: [id number] Admin: 04/19/21 18:19 Dose: 999 mls/hr Documented by: [id number] Famotidine (Pepcid 20mg Iv Push) 20 mg in 5 mls @ 2.5 mls/min IV NOW STA Stop: 04/19/21 17:25 Last Admin: 04/19/21 18:19 Dose: 2.5 mls/min Documented by: [id number] Pantoprazole Sodium (Protonix Bolus/Drip) 0 mls @ 1 mls/hr IV ONE STA Stop: 04/19/21 17:25 Last Admin: 04/19/21 18:44 Dose: 1 mls/hr Documented by: [id number] Pantoprazole Sodium 80 mg/ (Dextrose) 120 mls @ 400 mls/hr IV NOW ONE Stop: 04/19/21 17:41 Last Infusion: 04/19/21 19:03 Dose: 0 mls/hr Documented by: [id number] Admin: 04/19/21 18:19 Dose: 400 mls/hr Documented by: [id number] Piperacillin Sod/Tazobactam Sod (Zosyn) 4.5 gm in 120 mls @ 240 mls/hr IV NOW ONE Stop: 04/19/21 18:33 Last Infusion: 04/19/21 19:16 Dose: 0 mls/hr Documented by: [id number] Admin: 04/19/21 18:45 Dose: 240 mls/hr Documented by: [id number] Sodium Chloride (Nss 1000ml) 1,000 mls @ 999 mls/hr IV .Q1H1M ONE Stop: 04/19/21 19:04 Last Infusion: 04/19/21 18:45 Dose: 0 mls/hr Documented by: [id number] Admin: 04/19/21 18:45 Dose: 999 mls/hr Documented by: [id number] Sodium Chloride (Nss 1000ml) 1,000 mls @ 999 mls/hr IV .Q1H1M ONE Stop: 04/19/21 19:36 Last Infusion: 04/19/21 19:03 Dose: 0 mls/hr Documented by: [id number] Admin: 04/19/21 18:45 Dose: 999 mls/hr Documented by: [id number] Ioversol (Optiray 320 125ml) 120 ml IV ONCE ONE Stop: 04/19/21 18:07 Last Admin: 04/19/21 18:02 Dose: 120 ml Documented by: [id number] Miscellaneous (Rapid Sequence Induction Bag) Confirm Administered Dose 1 ea .ROUTE .STK-MED ONE Stop: 04/19/21 17:24 Last Admin: 04/19/21 19:04 Dose: Not Given Documented by: [id number] Ondansetron HCl (Ondansetron Inj 2 Mg/Ml 2 Ml Vial) 4 mg IV NOW ONE Stop: 04/19/21 17:46 Last Admin: 04/19/21 18:44 Dose: Not Given Documented by: [id number] Ondansetron HCl (Ondansetron Inj 2 Mg/Ml 2 Ml Vial) Confirm Administered Dose 4 mg .ROUTE .STK-SynapticMash ONE Stop: 04/19/21 17:33 Last Admin: 04/19/21 18:19 Dose: 4 mg Documented by: [id number] Imaging Data Radiologist's Impression: Chest X-Ray 04/19/21 17:25 Supine XR chest 1V portable CLINICAL HISTORY: syncope COMPARISON STUDY: Chest radiograph November 03, 2020. FINDINGS: Postoperative findings within the spine are noted. There is no pneumothorax or pleural effusion. Cardiomediastinal silhouette is stable. Left basilar opacity is present. There may also be right infrahilar opacity. IMPRESSION: Bibasilar opacities, greater on the left. The findings favor pneumonia or aspiration pneumonitis. Radiographic follow up to ensure resolution is recommended. ACT 112: Negative or not required by law. Electronically signed by: Salvador Sim M.D. 04/19/2021 6:04 PM Abdomen/Pelvis CT 04/19/21 17:45 CT OF THE ABDOMEN AND PELVIS WITH CONTRAST CLINICAL HISTORY: GI bleed. Syncope. Fall. COMPARISON STUDY: CT of the abdomen and pelvis April 07, 2017. TECHNIQUE: Following IV administration of 120 mL of Optiray, axial images of the abdomen and pelvis were obtained from the lung bases to the proximal femurs. Images were reviewed in the axial, sagittal, and coronal planes. IV contrast was administered without complication. Automated exposure control was utilized for the study. A dose lowering technique was utilized adhering to the principles of ALARA. FINDINGS: Multifocal airspace opacities are noted within the lungs. Please note that the chest CT will be reported separately. No pneumatosis, free air or portal venous gas is present. There is probable hepatic steatosis. Heterogeneity of the spleen is likely due to the phase of enhancement. The adrenal glands, kidneys and pancreas are unremarkable. There is no hydronephrosis. There is no biliary or pancreatic ductal dilatation. The stomach is moderately distended and fluid-filled. The proximal to mid small bowel is also moderately distended and fluid-filled. Distal small bowel is decompressed. Discrete transition point is not identified. Descending colostomy is noted. Postoperative findings consistent with resection of the distal colon and rectum are noted. Trace fluid within the operative bed is likely postsurgical. There is no lymphadenopathy. Mild compression deformity of the superior plate of L1 is noted. Postoperative findings within the thoracolumbar spine are noted. No acute fracture within the lumbar spine or pelvis is identified. No acute proximal femoral fracture is noted. IMPRESSION: 1. Fluid-filled distended stomach and proximal to mid small bowel. Decompressed distal small bowel however no well-defined transition point. The findings could reflect a partial small bowel obstruction or a nonspecific gastroenteritis. Na sogastric tube placement might be considered. 2. No acute traumatic findings within the abdomen or pelvis. 3. Multifocal airspace opacities within lungs which could reflect pneumonia or aspiration pneumonitis. ACT 112: Negative or not required by law. Electronically signed by: Salvador Sim M.D. 04/19/2021 6:[address] 04/19/21 17:45 CT OF THE CERVICAL SPINE WITHOUT CONTRAST CLINICAL HISTORY: fall COMPARISON STUDY: Cervical spine CT December 19, 2020. TECHNIQUE: Helical axial images of the cervical spine were obtained without IV contrast. Sagittal and coronal reconstructions were viewed. Automated exposure control was utilized for the study. A dose lowering technique was utilized adh ering to the principles of ALARA. FINDINGS: There are stable postoperative findings following C4-C7 anterior discectomy and fusion. There also postoperative findings consistent with posterior fusion at these levels. Alignment of the cervical spine is anatomic. Vertebral body heights are maintained. No acute cervical spine fracture or subluxation is present. There is no prevertebral edema. Facet joints are intact. Compression deformity of the superior plate of T1 is unchanged since prior examination. IMPRESSION: No acute cervical spine fracture or subluxation. Stable postoperative findings within the cervical spine. ACT 112: Negative or not required by law. Electronically signed by: Salvador Sim M.D. 04/19/2021 6:17 PM Chest CTA 04/19/21 17:45 CT ANGIOGRAPHY OF THE CHEST, PULMONARY EMBOLUS PROTOCOL CLINICAL HISTORY: Syncope. Fall. Shortness of breath. COMPARISON STUDY: Chest CT October 10, 2012. Chest radiograph performed earlier today. TECHNIQUE: Following IV administration of 120 mL of Optiray, helical axial images of the chest were obtained utilizing the pulmonary embolus protocol. Maximal intensity projections and sagittal and coronal reformats were viewed on an independent 3D workstation. IV contrast was administered without complication. Automated exposure control was utilized for the study. A dose lowering technique was utilized adhering to the principles of ALARA. CT DOSE: 2457.38 mGy.cm FINDINGS: No pulmonary emboli are identified although the segmental and subsegmental pulmonary arteries are suboptimally assessed due to respiratory motion. There is no thoracic aortic dissection. Ascending aorta is mildly dilated, measuring 4.2 cm. There is mild dilatation of the central pulmonary arteries. Cardiomegaly is noted. There is no pericardial effusion. The stomach is fluid-filled and distended. This is better depicted on the CT of the abdomen and pelvis. Moderate bilateral airspace opacities are noted, greatest within the bilateral lower lobes and the lingula. Central airways are patent. Lungs are suboptimally assessed due to respiratory motion. There is no pneumothorax or pleural effusion. Old mild T1, T2 and T3 compression fractures are noted. IMPRESSION: 1. No pulmonary emboli identified although segmental and subsegmental pulmonary arteries suboptimally assessed due to respiratory motion. 2. Moderate multifocal airspace opacities within lungs. The findings favor pneumonia or less likely aspiration pneumonitis. Follow-up chest CT in 3 months to ensure resolution is recommended. 3. Mild dilatation of the ascending aorta, measuring 4.2 cm. No thoracic aortic dissection. 4. Mild dilatation of the central pulmonary arteries which may reflect pulmonary arterial hypertension. 5. Fluid-filled distended stomach, better depicted on the CT of the abdomen and pelvis which will be reported separately. ACT 112: Negative or not required by law. Electronically signed by: Salvador Sim M.D. 04/19/2021 6:[address] 04/19/21 17:45 CT OF THE HEAD WITHOUT CONTRAST CLINICAL HISTORY: Syncope. COMPARISON STUDY: Head CT December 19, 2020. TECHNIQUE: Helical axial images of the head were obtained without IV contrast. Automated exposure control was utilized for the study. A dose lowering technique was utilized adhering to the principles of ALARA. FINDINGS: No acute intracranial hemorrhage, midline shift or mass effect is present. White matter hypodensities reflect small vessel disease. The ventricular system is unremarkable. The basal cisterns are patent. No extra- axial collections are present. There are no findings to suggest acute dural sinus thrombosis or acute territorial infarct. No significant calvarial abnormalities are present. Visualized portions of the sinuses and mastoid air cells are clear. Postoperative findings within the sinuses are noted. IMPRESSION: 1. No acute intracranial findings. 2. No calvarial fracture. ACT 112: Negative or not required by law. Electronically signed by: Salvador Sim M.D. 04/19/2021 6:15 PM Discharge Plan Visit Data Chief Complaint: GI Bleed ED Provider: Florentin Chen Discharge Problem: SBO (small bowel obstruction), Acute upper gastrointestinal bleeding, Hypoxia, Syncope, Contusion of face, LYUBOV (acute kidney injury), Metabolic acidosis Patient Disposition: Being Evaluated by Hospitalist Forms Stand Alone Forms: My [facility] Prescriptions Prescriptions: No Action acetaminophen 500 mg capsule 500 mg PO Q8H PRN (Reason: Pain) RF: 0 clopidogrel 75 mg tablet 75 mg PO QAM Qty: 90 RF: 3 atorvastatin 40 mg tablet 40 mg PO QAM Qty: 90 RF: 3 metformin 500 mg tablet 500 mg PO BID Qty: 180 RF: 1 lisinopril [Zestril] 5 mg tablet 5 mg PO QAM Qty: 90 RF: 1 metoprolol tartrate 25 mg tablet 25 mg PO BID Qty: 180 RF: 1 gabapentin 600 mg tablet 600 mg PO QID Qty: 360 RF: 0 baclofen 20 mg tablet 20 mg PO TID Qty: 270 RF: 0 oxycodone 5 mg tablet 5 mg PO Q4H PRN (Reason: Pain) Qty: 540 RF: 0 oxymorphone 30 mg tablet extended release 12 hr 30 mg PO BID Qty: 180 RF: 0 meloxicam 15 mg tablet 15 mg PO DAILY Qty: 30 RF: 0 tamsulosin 0.4 mg capsule 0.4 mg PO HS Qty: 90 RF: 1 naloxone 4 mg/actuation spray,non-aerosol 1 spray intranasal Q3M PRN (Reason: OVER SEDATION) RF: 0 aspirin 81 mg Tablet,Delayed Release (Dr/Ec) 81 mg PO QAM Qty: 30 RF: 0 multivitamin [One A Day Vitamin] Tablet 1 tab PO DAILY RF: 0 amlodipine 10 mg tablet 10 mg PO QAM RF: 0 loratadine [Claritin] 10 mg Tablet 10 mg PO DAILY PRN (Reason: Congestion) RF: 0 Referrals Referrals: PCP,NO [Primary Care Provider] -
--- NOTE | 2021-04-19 18:35 | CT Scan Report ---
CT ANGIOGRAPHY OF THE CHEST, PULMONARY EMBOLUS PROTOCOL CLINICAL HISTORY: Syncope. Fall. Shortness of breath. COMPARISON STUDY: Chest CT October 10, 2012. Chest radiograph performed earlier today. TECHNIQUE: Following IV administration of 120 mL of Optiray, helical axial images of the chest were o btained utilizing the pulmonary embolus protocol. Maximal intensity projections and sagittal and cor onal reformats were viewed on an independent 3D workstation. IV contrast was administered without co mplication. Automated exposure control was utilized for the study. A dose lowering technique was ut ilized adhering to the principles of ALARA. CT DOSE: 2457.38 mGy.cm FINDINGS: No pulmonary emboli are identified although the segmental and subsegmental pulmonary arter ies are suboptimally assessed due to respiratory motion. There is no thoracic aortic dissection. Asce nding aorta is mildly dilated, measuring 4.2 cm. There is mild dilatation of the central pulmonary ar teries. Cardiomegaly is noted. There is no pericardial effusion. The stomach is fluid-filled and dist ended. This is better depicted on the CT of the abdomen and pelvis. Moderate bilateral airspace opaci ties are noted, greatest within the bilateral lower lobes and the lingula. Central airways are patent . Lungs are suboptimally assessed due to respiratory motion. There is no pneumothorax or pleural effu alonso. Old mild T1, T2 and T3 compression fractures are noted. IMPRESSION: 1. No pulmonary emboli identified although segmental and subsegmental pulmonary arteries suboptimally assessed due to respiratory motion. 2. Moderate multifocal airspace opacities within lungs. The findings favor pneumonia or less likely a spiration pneumonitis. Follow-up chest CT in 3 months to ensure resolution is recommended. 3. Mild dilatation of the ascending aorta, measuring 4.2 cm. No thoracic aortic dissection. 4. Mild dilatation of the central pulmonary arteries which may reflect pulmonary arterial hypertensio n. 5. Fluid-filled distended stomach, better depicted on the CT of the abdomen and pelvis which will be reported separately. ACT 112: Negative or not required by law. Electronically signed by: Salvador Sim M.D. 04/19/2021 6:34 PM
[2021-04-19 18:42] LABS: Albumin Globulin Ratio 1.3 (0.9-2); Albumin Level 3.9 gm/dl (3.4-5.0); BUN Creatinine Ratio 17.7 (10-20); Bilirubin,Total 1.3 mg/dl (0.2-1.0); Calcium 8.4 mg/dl (8.5-10.1); Creatinine Clr Calc Pharmacy 40.6 ml/min; Est GFR (African American) 44.1 ml/min; Est GFR (Non-African American) 38.1 ml/min; Globulin 3.1 gm/dl (2.5-4.0); Potassium 4.3 mmol/L (3.5-5.1)
[2021-04-19 18:42] LABS: Appearance Urine Clear (Clear); Bacteria Urine Automated Negative (Negative); Bilirubin Urine Negative (Negative); Blood Urine Negative (Negative); Color Urine Dark Yellow; Glucose Urine UA Negative (Negative); Ketones Urine Trace (Negative); Leukocyte Esterase Urine Negative (Negative); Nitrite Urine Negative (Negative); Protein Urine Trace (Negative); RBC Urine Automated 0-4 /hpf (0-4); Urobilinogen Urine Negative (Negative)
--- NOTE | 2021-04-19 18:43 | CT Scan Report ---
CT OF THE ABDOMEN AND PELVIS WITH CONTRAST CLINICAL HISTORY: GI bleed. Syncope. Fall. COMPARISON STUDY: CT of the abdomen and pelvis April 07, 2017. TECHNIQUE: Following IV administration of 120 mL of Optiray, axial images of the abdomen and pelvis w ere obtained from the lung bases to the proximal femurs. Images were reviewed in the axial, sagittal, and coronal planes. IV contrast was administered without complication. Automated exposure control w as utilized for the study. A dose lowering technique was utilized adhering to the principles of ALACipriano Page. FINDINGS: Multifocal airspace opacities are noted within the lungs. Please note that the chest CT archana l be reported separately. No pneumatosis, free air or portal venous gas is present. There is probable hepatic steatosis. Heterogeneity of the spleen is likely due to the phase of enhancement. The adrena l glands, kidneys and pancreas are unremarkable. There is no hydronephrosis. There is no biliary or p ancreatic ductal dilatation. The stomach is moderately distended and fluid-filled. The proximal to mi d small bowel is also moderately distended and fluid-filled. Distal small bowel is decompressed. Disc rete transition point is not identified. Descending colostomy is noted. Postoperative findings consis tent with resection of the distal colon and rectum are noted. Trace fluid within the operative bed is likely postsurgical. There is no lymphadenopathy. Mild compression deformity of the superior plate o f L1 is noted. Postoperative findings within the thoracolumbar spine are noted. No acute fracture wit hin the lumbar spine or pelvis is identified. No acute proximal femoral fracture is noted. IMPRESSION: 1. Fluid-filled distended stomach and proximal to mid small bowel. Decompressed distal small bowel ho wever no well-defined transition point. The findings could reflect a partial small bowel obstruction or a nonspecific gastroenteritis. Nasogastric tube placement might be considered. 2. No acute traumatic findings within the abdomen or pelvis. 3. Multifocal airspace opacities within lungs which could reflect pneumonia or aspiration pneumonitis . ACT 112: Negative or not required by law. Electronically signed by: Salvador Sim M.D. 04/19/2021 6:41 PM
[2021-04-19] MEDS: PANTOprazole 40 MG in DEXTROSE 5% 100 ML IV SCH ×2 (18:44→23:47)
[2021-04-19] MEDS ORDERED: LACTATED RINGER'S 1,000 ML IV ONE (19:10)
[2021-04-19 19:13] LABS: Troponin I 0.05 ng/ml (0-0.04)
--- NOTE | 2021-04-19 19:48 | Surgery Consultation ---
Date of Consultation April 19, 2021 Assessment & Plan (1) Partial small bowel obstruction: Patient is being admitted to the hospital service. We recommend proceeding as follows: Maintain the patient on n.p.o. status Maintain NG tube to low continuous suction Provide analgesics Provide antiemetics Due to concern for possible GI bleed maintain the patient on Protonix Provide hydration with IV fluids Repeat KUB in the morning Discussed with the patient and his family that his partial small bowel obstruction is likely on the basis of adhesions from previous surgeries. Due to the patient's numerous underlying medical comorbidities and previous abdominal surgeries I discussed with them that we would prefer to treat this condition in a conservative manner with the measures outlined above and reserve surgery only for a last resort particularly in light of the fact the patient requires dual antiplatelet therapy which would increase any risk of surgical bleeding. Additional recommendations and plan per primary team Supervising Physician Co-Signing Physician Notes I personally saw and evaluated the patient with Masood Thomas PA-C and agree with the assessment and plan. 71-year-old male with partial small bowel obstruction, history of coronary stent October [address] images and results reviewed, consistent with a small bowel obstruction NG tube was placed in the ER and the patient is feeling much better Recommend keeping him n.p.o. giving him IV hydration to correct his electrolytes and LYUBOV We will try nonoperative management in this high risk patient Repeat KUB tomorrow We will follow History of Present Illness Reason for Consultation: Small bowel obstruction History of Present Illness Is a 71-year-old male who presented to [facility] after falling earlier today. The patient did not have a clear recollection of today's events but fortunately his and daughter were at the bedside and they help supplement the patient's history. They noted that he was in his usual state of health yesterday feeling fine able to about his daily life without any difficulties however earlier today he became lightheaded and diaphoretic and fell striking his head. They said he came to shortly after falling. They then noted that the patient had a distended abdomen and he complained of some abdominal pain and he subsequently vomited a large amount of emesis prompting his visit to the emergency department. Patient does have a history of multiple abdominal surgeries. He has had spine surgery that was performed through an anterior abdominal approach. In addition the patient had a history of colorectal cancer for which he underwent resection of this at [facility] and subsequently has an ostomy. He has had very little in the way of oral intake since this morning. At the present time he does not report any abdominal pain. He has not had any further emesis. Since arrival to the emergency department patient has had numerous labs and imaging which I independently reviewed. Patient did have a chest x-ray that showed bibasilar opacities greater on the left. Aspiration pneumonitis could not be excluded. A CT scan of the head showed no evidence of fractures or acute intracranial bleed. A CT scan of the chest showed no evidence of pulmonary emboli. There were numerous multifocal airspace opacities in the lung favoring pneumonia. A cervical spine CT scan showed no evidence of fractures or subluxations. CT scan of the abdomen showed that his stomach was fluid-filled as was his proximal small bowel. Patient's distal small bowel was noted to be compressed and no discrete transition point was noted favoring findings of small bowel obstruction. Was included a CBC her white blood cell count was 12.7. His hemoglobin and hematocrit were 13.1 and 38.4. Platelet count was noted to be normal. Chemistry profile showed sodium was 128. Potassium was noted be within normal range. His BUN and creatinine were elevated at 31 and 1.7. This creatinine level was elevated from his baseline. There is no significant elevation of LFTs or lipase. Patient had a slight bump in his troponin at 0.05. Urinalysis was not indicative of infection and a Covid test was noted be negative. Since arrival to the emergency department the patient has had an NG tube placed. I did discuss with the nurse at bedside and she notes that when the NG tube was inserted they immediately got approximately 1 L of fluid. The fluid appeared black and feculent in nature. Patient's family notes that he did achieve some significant symptomatic relief with this and his abdominal distention appeared to improve. Treating emergency room physician has initiated IV fluids as the patient was hypotensive and did respond to this. A Protonix drip was also ordered due to concern for GI bleed based on the nature of the NG tube output. Is no over the mention that in the patient's history in October 2020 he did suffer a myocardial infarction. At this time he did have a drug-eluting stent placed to the right coronary artery. His cardiology notes were reviewed and it has been recommended that the patient remain on dual antiplatelet therapy for a minimum of 1 year from this event. Patient does take aspirin and Plavix and his family notes that he has been compliant with this since these medications were initiated. Also no over the mention that the patient does take Mobic 15 mg daily for analgesic purposes. At the time of interview he was resting comfortably in bed in no distress. Allergies Allergy/AdvReac Type Severity Reaction Status Date / Time rosuvastatin AdvReac Severe Myalgia Verified 04/19/21 18:31 Home Medications Medication Instructions Recorded Confirmed Type acetaminophen 500 mg capsule 500 mg PO Q8H PRN cap 10/12/20 04/19/21 History aspirin 81 mg tablet,delayed 81 mg PO QAM #30 tab 11/05/20 04/19/21 Rx release atorvastatin 40 mg tablet 40 mg PO QAM #90 tab 11/30/20 04/19/21 Rx clopidogrel 75 mg tablet 75 mg PO QAM #90 tab 11/30/20 04/19/21 Rx metformin 500 mg tablet 500 mg PO BID #180 tab 12/08/20 04/19/21 Rx lisinopril 5 mg tablet (Zestril) 5 mg PO QAM #90 tab 12/16/20 04/19/21 Rx metoprolol tartrate 25 mg tablet 25 mg PO BID #180 tab 12/16/20 04/19/21 Rx naloxone 4 mg/actuation nasal spray 1 spray INTRANASAL Q3M PRN 12/19/20 04/19/21 History baclofen 20 mg tablet 20 mg PO TID #270 tab 01/13/21 04/19/21 Rx gabapentin 600 mg tablet 600 mg PO QID #360 tab 01/13/21 04/19/21 Rx oxycodone 5 mg tablet 5 mg PO Q4H PRN #540 tab 01/15/21 04/19/21 Rx oxymorphone 30 mg tablet,extended 30 mg PO BID #180 tab 01/15/21 04/19/21 Rx release,12 hr meloxicam 15 mg tablet 15 mg PO DAILY #30 tab 03/10/21 04/19/21 Rx tamsulosin 0.4 mg capsule 0.4 mg PO HS #90 cap 04/06/21 04/19/21 Rx amlodipine 10 mg tablet 10 mg PO QAM 04/19/21 04/19/21 History loratadine 10 mg tablet (Claritin) 10 mg PO DAILY PRN 04/19/21 04/19/21 History multivitamin 1 tab PO DAILY 04/19/21 04/19/21 History Patient History Medical History LYUBOV (acute kidney injury) Anxiety disorder BPH with obstruction/lower urinary tract symptoms CAD (coronary artery disease), [place] coronary artery Chronic back pain DM2 (diabetes mellitus, type 2) Gastroesophageal reflux Hypertension Hyponatremia Obstructive sleep apnea Osteoarthritis Peripheral neuropathy ST elevation (STEMI) myocardial infarction Statin myopathy Surgical History H/O inguinal hernia repair H/O resection of rectum History of rectal surgery Previous back surgery S/P cervical spinal fusion S/P tonsillectomy and adenoidectomy Family History Father Cardiovascular disease Cardiac disorder Prostate cancer Mother Dementia Diabetes Other Hypertension No significant family history Denies family history of Ovarian cancer Myocardial infarction Breast cancer Colorectal cancer Social History Smoking Status: Former smoker Age Started Using Tobacco: 17; Age Quit Using Tobacco: 24; packs per day: 1; Years Smoked: 7; Cigarettes Per Day: 20; Number of Years Since Quit: 46; Second Hand Exposure: No; Hx Alcohol Use: No Hx Substance Use: No Preferred Language: Luxembourgish Communication Ability: Effective Visual Impairment: No Limitations Hearing Ability: Normal Pharmacy Service Associate Required: No Beliefs That Will Affect Care: None marital status: Current Living Situation: Spouse current occupational status: retired How many Children do You have: 4 Feels Safe at Home: Yes Childhood Exposure to Second-Hand Smoke: No caffeine: Yes during the past year weight has: remained stable Dental Care, Regularly: No Physical Activity Frequency: Daily Seatbelt Use: always Sunscreen Use: No Assistive Devices: Cane and Glasses Review of Systems Constitutional: no fever and no chills Eyes: no diplopia Ear, Nose, Mouth, Throat: no ear pain Respiratory: no cough and no dyspnea Cardiovascular: + syncope; no chest pain Gastrointestinal: + abdominal pain, + nausea and + vomiting Genitourinary: no dysuria Musculoskeletal: no neck pain Integumentary: no rash Neurologic: no localized weakness Physical Exam Physical Exam: Patient was noted to have a bruise/ecchymosis superior to his left eye. Constitutional: well developed and well nourished; no acute distress Eyes: no conjunctival abnormality ENMT: Ears: no hearing impairment and no external ear abnormality Neck: trachea midline Respiratory: normal respiratory effort; no respiratory distress and no labored breathing Cardiovascular: Rate/Rhythm: regular rate and regular rhythm Gastrointestinal (Abdomen): Patient's abdomen is mildly distended with hypoactive bowel sounds. His abdomen is tympanic to percussion. There is minimal pain with palpation and there is no rebound tenderness or guarding. Patient was noted to have an ostomy on the left side of his abdomen with some stool in the collection bag. Musculoskeletal: No calf tenderness Skin: no rashes Neurologic: moves all extremities Psychiatric: A+Ox3, euthymic affect Results & Data ([facility]) Vital Signs (Past 12 Hours) Vital Signs Temp Pulse Pulse Resp BP BP Pulse Ox 04/19/21 19:30 116 H 23 108/73 94 04/19/21 19:13 122 H 22 112/67 93 04/19/21 19:10 124 H 25 H 93 04/19/21 19:00 121 H 23 112/67 92 04/19/21 18:45 124 H 27 H 100 04/19/21 18:40 128 H 26 H 104/74 100 04/19/21 18:35 126 H 24 109/78 92 04/19/21 18:30 128 H 23 121/69 97 04/19/21 18:25 126 H 24 109/78 84 L 04/19/21 18:20 123 H 29 H 100 04/19/21 18:10 119 H 24 105/76 100 04/19/21 18:09 123 H 25 H 118/65 100 04/19/21 17:45 131 H 44 H 90/65 L 100 04/19/21 17:44 36.7 C 133 H 46 H 107/80 77 L 04/19/21 17:40 134 H 41 H 71 L 04/19/21 17:34 146 H 52 H 93 PG Care Time/CCT Total # of Minutes Spent Total Time Spent with Patient: Total time spent is greater than 50% in coordination of care (as documented) at patient's floor/unit and/or counseling patient: Coding Level of Care Code 27545 Inpt Consult Level 5 Diagnoses Partial small bowel obstruction K56.600
--- NOTE | 2021-04-19 20:24 | History & Physical Report ---
Date of Service April 19, 2021 Assessment & Plan (1) SBO (small bowel obstruction): Plan: 71yo male with multiple medical comorbidities presenting with abdominal distention, nausea with bilious and coffee ground emesis, syncopal event prior to arrival. Patient hypotensive, tachycardic, tachypneic and hypoxic on arrival. Elevated WBC=12.79. CT of the abdomen with a fluid-filled distended stomach and proximal to mid small bowel possibly reflecting a partial SBO or nonspecific gastroenteritis. Patient has an NGT in place to suction with return of >1L of dark fluid with improvement in abdominal distention, nausea and pain. Patient is on chronic opioids which could be contributing -Admit to PCU -Maintain NGT to low intermittent suction. Monitor output -Keep NPO -Pain control, anti-emetics -IVF with LR at 80mL/hr -Check Mg and PO4 and replete as needed -General Surgery consultation appreciated (2) Acute upper gastrointestinal bleeding: Plan: Report of coffee ground emesis prior to arrival. Patient was hypotensive and tachycardic on arrival. Blood pressure has improved with 3L NSS administered in ER - presently 124/77. Still with tachycardia at 123bpm. Hgb and Hct = 13.1 and 38.4, respectively which is near baseline values. Patient with history of GERD as well as CAD. He is on DAPT with ASA and Plavix as well as Meloxicam. -Telemetry monitoring -Maintain two large bore PIVs -Hold ASA and Plavix -Trend CBC - transfuse for acute bleed, symptomatic anemia or Hgb <8 -Continue Protonix gtt (3) Hypoxia: Plan: Patient with transient hypoxia on arrival with saturations in the 70's. He is presently breathing comfortably on 3L NC with saturations of 93%. CTA with moderate multifocal airspace opacities within the lungs possibly PNA. Patient denies prodrome of fever, chills, sweats, fatigue, cough or SOB. He has received Covid-19 vaccine x 2 + booster and has had no known Covid-19 exposures. His Covid-19 NAAT test in the ER is NEGATIVE. Possibly secondary to aspiration -Continue supplemental O2 -Check procalcitonin in AM -Aspiration precautions (4) CAD (coronary artery disease), [place] coronary artery: Plan: Patient with history of CAD s/p STEMI. He denies chest pain, SOB. Elevated troponin on arrival at 0.05 --> 0.24. EKG with some nonspecific findings. Suspect supply-demand mismatch in setting of hypotension, tachycardia and hypoxia. -Holding ASA and Plavix for now due to concern for GIB -Hold Atorvastatin for now -Hold Lisinopril and Metoprolol given hypotension on arrival -Repeat troponin q 8 hours x 3 -Repeat EKG in AM (5) Hypomagnesemia: Plan: Magnesium = 1.2. -Replete with 3gm -Repeat Mg in AM (6) Hypophosphatemia: Plan: Low Phosphorous at 1.6 -Gentle repletion given mild LYUBOV - NaPO4 9mmol -Repeat level in AM (7) Hypocalcemia: Plan: Ionized calcium low at 0.98 -1gm calcium gluconate -Repeat chemistry in AM (8) LYUBOV (acute kidney injury): Plan: Elevation of BUN and CR to 31 and 1.75, respectively. Last Cr 0.92 in December 2020. Patient is making urine -Avoid nephrotoxic agents -Renal dosing where needed -Monitor UOP, BUN, Cr, Electrolytes (9) High anion gap metabolic acidosis: Plan: pH=7.25, HCO3=18, Gap=22. Possibly due to LYUBOV - elevation in Cr -Check lactate -Repeat chemistry in AM (10) Hyponatremia: Plan: [id number]. Patient with chronic hyponatremia with Na ranging from 127 - 135 over the last 5 months. -Repeat chemistry in AM (11) Contusion of face: Plan: Patient with bruising over left eye following a syncopal event. No focal deficits noted on exam. CT of the head and C-spine are negative for acute pathology. 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 Stable on medications -Monitor UOP -Continue Flomax 0.4mg po qHS (13) DM2 (diabetes mellitus, type 2): Plan: Chronic. Last [id number]=4.7 on 11/04/20. 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 Site appears clean. Minimal output in bag -Routine maintenance q shift -Monitor output (15) Gastroesophageal reflux: Plan: With concern for acute UGIB as described above -Continue Protonix gtt -Monitor CBC (16) Hypertension: Plan: Blood pressure low on arrival -Hold Amlodipine, Lisinopril, Metoprolol -Monitor Plan: F/E/N - LR at 80mL/hr, electrolyte repletion as above - Ca, Mg, PO4, monitor Na, NPO for now Ppx - SCDs to bilateral LE Code - Full Dispo - Admit to PCU History of Present Illness Chief Complaint: Syncope, vomiting Primary Care Provider: NO PCP Jere Borrego is a 71yo male with multiple medical comorbidities to include CAD s/p STEMI, DM, HTN, GERD, colostomy in place. Patient woke this morning and states that he wasn't feeling well. He was complaining of diffuse abdominal discomfort. His family states that he was acting somewhat confused, wasn't able to clearly articulate what his complaints were. Later in the day he developed worsening abdominal pain as well as nausea with several episodes of vomiting. His family was putting him in the car to bring him to the ER when he had a syncopal event. 911 was called and patient was brought in by ambulance. He had reported dark emesis en route, possible coffee ground material. Upon arrival to the ER patient hypotensive at 90/60, tachycardic with HR 130's and tachypneic. He had a right femoral TLC placed in the ER and was provided with 3L NSS with improvement in blood pressure. A NGT was placed with over 1L of dark, bilious return. Patient resting comfortably during my encounter. Arousable and able to answer questions appropriately. He reports improvement in his abdominal pain and distention. Still with some discomfort. He denies fever, chills, cough, SOB, chest pain, dysuria. He reports normal output from his ostomy. Patient has received Covid-19 vaccine x 2 + Booster His Covid-19 test in the ER is NEGATIVE ER Course: NSS x 3L, Pepcid 20mg IV, Protonix 80mg then gtt, Zofran 4mg IV, Zosyn 4.5gm Allergies Allergy/AdvReac Type Severity Reaction Status Date / Time rosuvastatin AdvReac Severe Myalgia Verified 04/19/21 18:31 Home Medications Medication Instructions Recorded Confirmed Type acetaminophen 500 mg capsule 500 mg PO Q8H PRN cap 10/12/20 04/19/21 History aspirin 81 mg tablet,delayed 81 mg PO QAM #30 tab 11/05/20 04/19/21 Rx release atorvastatin 40 mg tablet 40 mg PO QAM #90 tab 11/30/20 04/19/21 Rx clopidogrel 75 mg tablet 75 mg PO QAM #90 tab 11/30/20 04/19/21 Rx metformin 500 mg tablet 500 mg PO BID #180 tab 12/08/20 04/19/21 Rx lisinopril 5 mg tablet (Zestril) 5 mg PO QAM #90 tab 12/16/20 04/19/21 Rx metoprolol tartrate 25 mg tablet 25 mg PO BID #180 tab 12/16/20 04/19/21 Rx naloxone 4 mg/actuation nasal spray 1 spray INTRANASAL Q3M PRN 12/19/20 04/19/21 History baclofen 20 mg tablet 20 mg PO TID #270 tab 01/13/21 04/19/21 Rx gabapentin 600 mg tablet 600 mg PO QID #360 tab 01/13/21 04/19/21 Rx oxycodone 5 mg tablet 5 mg PO Q4H PRN #540 tab 01/15/21 04/19/21 Rx oxymorphone 30 mg tablet,extended 30 mg PO BID #180 tab 01/15/21 04/19/21 Rx release,12 hr meloxicam 15 mg tablet 15 mg PO DAILY #30 tab 03/10/21 04/19/21 Rx tamsulosin 0.4 mg capsule 0.4 mg PO HS #90 cap 04/06/21 04/19/21 Rx amlodipine 10 mg tablet 10 mg PO QAM 04/19/21 04/19/21 History loratadine 10 mg tablet (Claritin) 10 mg PO DAILY PRN 04/19/21 04/19/21 History multivitamin 1 tab PO DAILY 04/19/21 04/19/21 History Past Med/Surg History Medical History LYUBOV (acute kidney injury) Anxiety disorder BPH with obstruction/lower urinary tract symptoms CAD (coronary artery disease), [place] coronary artery Chronic back pain DM2 (diabetes mellitus, type 2) Gastroesophageal reflux Hypertension Hyponatremia Obstructive sleep apnea Osteoarthritis Peripheral neuropathy ST elevation (STEMI) myocardial infarction Statin myopathy Surgical History H/O inguinal hernia repair H/O resection of rectum History of rectal surgery Previous back surgery S/P cervical spinal fusion S/P tonsillectomy and adenoidectomy Family History Father Cardiovascular disease Cardiac disorder Prostate cancer Mother Dementia Diabetes Other Hypertension No significant family history Denies family history of Ovarian cancer Myocardial infarction Breast cancer Colorectal cancer Social History Smoking Status: Former smoker Age Started Using Tobacco: 17; Age Quit Using Tobacco: 24; packs per day: 1; Years Smoked: 7; Cigarettes Per Day: 20; Number of Years Since Quit: 46; Second Hand Exposure: No; Hx Alcohol Use: No Hx Substance Use: No Preferred Language: Azeri Communication Ability: Effective Visual Impairment: No Limitations Hearing Ability: Normal Hair Assistant Required: No Beliefs That Will Affect Care: None marital status: Current Living Situation: Spouse current occupational status: retired How many Children do You have: 4 Feels Safe at Home: Yes Childhood Exposure to Second-Hand Smoke: No caffeine: Yes during the past year weight has: remained stable Dental Care, Regularly: No Physical Activity Frequency: Daily Seatbelt Use: always Sunscreen Use: No Assistive Devices: Cane and Glasses Review of Systems Review of Systems: All systems reviewed & are unremarkable except as noted in HPI & below Physical Exam Physical Exam: General: patient resting comfortably, arousable, ill in appearance, NAD, AA&O x 4 Skin: warm, dry, intact, no rashes or lesions HEENT: Bruising over left eye, PERRL, EOMI, anicteric sclera, conjunctiva without injection, external ear normal to inspection and nontender, nares patent, moist mucus membranes, dentition intact, no oropharyngeal lesions, neck supple, trachea midline, no LAD, no thyromegaly, no JVD, NGT in place Heart: +S1/S2, regular, tachycardic, no m/r/g Lungs: equal air entry bilaterally, no rales/rhonchi/wheezes Abd: mildly distended, tympanic to percussion, diminished bowel sounds, tenderness to palpation in RLQ without rebound/guarding or peritoneal signs, colostomy in place with minimal solid output Ext: warm, 2+ pulses in UE/LE bilaterally, no clubbing/cyanosis or edema, right femoral triple lumen catheter in place Neuro: nonfocal, patient AA&O x 4, speech intact, no facial droop, moving all extremities on command with equal strength 5/5 Results & Data Results & Data ([facility]) Vital Signs (Past 12 Hours) Vital Signs Temp Pulse Pulse Resp BP BP Pulse Ox 04/19/21 20:00 115 H 22 119/78 95 04/19/21 19:30 116 H 23 108/73 94 04/19/21 19:13 122 H 22 112/67 93 04/19/21 19:10 124 H 25 H 93 04/19/21 19:00 121 H 23 112/67 92 04/19/21 18:45 124 H 27 H 100 04/19/21 18:40 128 H 26 H 104/74 100 04/19/21 18:35 126 H 24 109/78 92 04/19/21 18:30 128 H 23 121/69 97 04/19/21 18:25 126 H 24 109/78 84 L 04/19/21 18:20 123 H 29 H 100 04/19/21 18:10 119 H 24 105/76 100 04/19/21 18:09 123 H 25 H 118/65 100 04/19/21 17:45 131 H 44 H 90/65 L 100 04/19/21 17:44 36.7 C 133 H 46 H 107/80 77 L 04/19/21 17:40 134 H 41 H 71 L 04/19/21 17:34 146 H 52 H 93 Laboratory Results Laboratory Results WBC 12.79 K/uL (4.8-10.8) H 04/19/21 17:41 RBC 4.36 M/uL (4.7-6.1) L 04/19/21 17:41 Hgb 13.1 g/dL (14.0-18.0) L 04/19/21 17:41 POC Hgb 13.6 g/dl (14.0-18.0) L 04/19/21 17:42 Hct 38.4 % (42-52) L 04/19/21 17:41 POC Hct 40 % (42-52) L 04/19/21 17:42 MCV 88.1 fL (80-100) 04/19/21 17:41 MCH 30.0 pg (25-34) 04/19/21 17:41 MCHC 34.1 g/dL (32-36) 04/19/21 17:41 RDW Std Deviation 43.3 fL (36.4-46.3) 04/19/21 17:41 RDW Coeff of Arturo 13.3 % (11.5-14.5) 04/19/21 17:41 Plt Count 264 K/uL (130-400) 04/19/21 17:41 MPV 10.1 fL (7.4-10.4) 04/19/21 17:41 Immature Gran % (Auto) 0.3 % 04/19/21 17:41 Neut % (Auto) 89.0 % 04/19/21 17:41 Lymph % (Auto) 8.3 % 04/19/21 17:41 [place] % (Auto) 2.4 % 04/19/21 17:41 Eos % (Auto) 0.0 % 04/19/21 17:41 Baso % (Auto) 0.0 % 04/19/21 17:41 Neut # (Auto) 11.38 K/uL (1.4-6.5) H 04/19/21 17:41 Lymph # (Auto) 1.06 K/uL (1.2-3.4) L 04/19/21 17:41 [place] # (Auto) 0.31 K/uL (0.11-0.59) 04/19/21 17:41 Eos # (Auto) 0.00 K/uL (0-0.5) 04/19/21 17:41 Baso # (Auto) 0.00 K/uL (0-0.2) 04/19/21 17:41 Immature Gran # (Auto) 0.04 K/uL (0.00-0.02) H 04/19/21 17:41 PT 11.6 Seconds (9.0-12.0) 04/19/21 17:41 INR 1.2 (0.9-1.1) H 04/19/21 17:41 APTT 28.3 Seconds (21.0-31.0) 04/19/21 17:41 PTT Ratio 1.1 04/19/21 17:41 VBG pH 7.25 (7.36-7.41) L 04/19/21 19:00 VBG pCO2 39 mmHg (38-50) 04/19/21 19:00 VBG pO2 30 mmHg 04/19/21 19:00 VBG HCO3 17 mmol/L 04/19/21 19:00 VBG O2 Saturation < 60.0 % 04/19/21 19:00 VBG Base Excess -9.6 mEq/L 04/19/21 19:00 Barometric Pressure 733.1 mm/Hg 04/19/21 19:00 POC Sodium 128 mmol/L (135-144) L 04/19/21 17:42 Sodium 128 mmol/L (136-145) L 04/19/21 17:41 POC Potassium 4.4 mmol/L (3.3-5.0) 04/19/21 17:42 Potassium 4.3 mmol/L (3.5-5.1) 04/19/21 17:41 POC Chloride 90 mmol/L (101-112) L 04/19/21 17:42 Chloride 88 mmol/L (98-107) L 04/19/21 17:41 Carbon Dioxide 18 mmol/L (21-32) L 04/19/21 17:41 POC Total CO2 20 mmol/L (24-31) L 04/19/21 17:42 Anion Gap 22 (3-11) H 04/19/21 17:41 POC Anion Gap 24.0 mmol/L (16-25) 04/19/21 17:42 POC BUN 32 mg/dl (7-18) H 04/19/21 17:42 BUN 31 mg/dl (6-23) H 04/19/21 17:41 Creatinine 1.75 mg/dl (0.6-1.4) H 04/19/21 17:41 POC Creatinine 1.7 mg/dl (0.6-1.3) H 04/19/21 17:42 Est Cr Clr Drug Dosing 40.6 ml/min 04/19/21 17:41 Est GFR ( Amer) 44.1 ml/min 04/19/21 17:41 Est GFR (Non-Af Amer) 38.1 ml/min 04/19/21 17:41 BUN/Creatinine Ratio 17.7 (10-20) 04/19/21 17:41 Glucose 193 mg/dl (70-99(Fasting)) H 04/19/21 17:41 POC Glucose (other) 197 mg/dl (70-99) H 04/19/21 17:42 Calcium 8.4 mg/dl (8.5-10.1) L 04/19/21 17:41 POC Ioniz Calcium Bre 0.98 mmol/l (1.12-1.32) L 04/19/21 17:42 Phosphorus 1.6 mg/dl (2.5-4.9) L 04/19/21 20:54 Phosphorus Cancelled 04/19/21 20:54 Magnesium 1.2 mg/dl (1.7-2.4) L 04/19/21 20:54 Magnesium Cancelled 04/19/21 20:54 Total Bilirubin 1.3 mg/dl (0.2-1.0) H 04/19/21 17:41 AST 19 U/L (13-39) 04/19/21 17:41 ALT 9 U/L (7-52) 04/19/21 17:41 Alkaline Phosphatase 68 U/L (34-104) 04/19/21 17:41 Troponin I 0.24 ng/ml (0-0.04) H* 04/19/21 20:54 Total Protein 7.0 gm/dl (6.0-8.3) 04/19/21 17:41 Albumin 3.9 gm/dl (3.4-5.0) 04/19/21 17:41 Globulin 3.1 gm/dl (2.5-4.0) 04/19/21 17:41 Albumin/Globulin Ratio 1.3 (0.9-2) 04/19/21 17:41 Lipase 83 U/L (11-82) H 04/19/21 17:41 Urine Color Dark Yellow 04/19/21 18:25 Urine Appearance Clear (Clear) 04/19/21 18:25 Urine pH 6.0 (4.5-7.5) 04/19/21 18:25 Ur Specific [place] 1.020 (1.000-1.030) 04/19/21 18:25 Urine Protein Trace (Negative) H 04/19/21 18:25 Urine Glucose (UA) Negative (Negative) 04/19/21 18:25 Urine Ketones Trace (Negative) H 04/19/21 18:25 Urine Blood Negative (Negative) 04/19/21 18:25 Urine Nitrite Negative (Negative) 04/19/21 18:25 Urine Bilirubin Negative (Negative) 04/19/21 18:25 Urine Urobilinogen Negative (Negative) 04/19/21 18:25 Ur Leukocyte Esterase Negative (Negative) 04/19/21 18:25 Urine WBC (Auto) 1-5 /hpf (0-5) 04/19/21 18:25 Urine RBC (Auto) 0-4 /hpf (0-4) 04/19/21 18:25 U Hyaline Cast (Auto) 1-5 /lpf (0-5) 04/19/21 18:25 U Epithel Cells (Auto) 5-10 /lpf (0-5) H 04/19/21 18:25 Urine Bacteria (Auto) Negative (Negative) 04/19/21 18:25 SARS-CoV-2, RNA, NAAT NEGATIVE (NEGATIVE) 04/19/21 18:29 Blood Type A Positive 04/19/21 17:41 Antibody Screen NEGATIVE 04/19/21 17:41 Crossmatch See Detail 04/19/21 17:41 Impressions Chest X-Ray 04/19/21 17:25 Supine XR chest 1V portable CLINICAL HISTORY: syncope COMPARISON STUDY: Chest radiograph November 03, 2020. FINDINGS: Postoperative findings within the spine are noted. There is no pneumothorax or pleural effusion. Cardiomediastinal silhouette is stable. Left basilar opacity is present. There may also be right infrahilar opacity. IMPRESSION: Bibasilar opacities, greater on the left. The findings favor pneumonia or aspiration pneumonitis. Radiographic follow up to ensure resolution is recommended. ACT 112: Negative or not required by law. Electronically signed by: Salvador Sim M.D. 04/19/2021 6:04 PM Abdomen/Pelvis CT 04/19/21 17:45 CT OF THE ABDOMEN AND PELVIS WITH CONTRAST CLINICAL HISTORY: GI bleed. Syncope. Fall. COMPARISON STUDY: CT of the abdomen and pelvis April 07, 2017. TECHNIQUE: Following IV administration of 120 mL of Optiray, axial images of the abdomen and pelvis were obtained from the lung bases to the proximal femurs. Images were reviewed in the axial, sagittal, and coronal planes. IV contrast was administered without complication. Automated exposure control was utilized for the study. A dose lowering technique was utilized adhering to the principles of ALARA. FINDINGS: Multifocal airspace opacities are noted within the lungs. Please note that the chest CT will be reported separately. No pneumatosis, free air or portal venous gas is present. There is probable hepatic steatosis. Heterogeneity of the spleen is likely due to the phase of enhancement. The adrenal glands, kidneys and pancreas are unremarkable. There is no hydronephrosis. There is no biliary or pancreatic ductal dilatation. The stomach is moderately distended and fluid-filled. The proximal to mid small bowel is also moderately distended and fluid-filled. Distal small bowel is decompressed. Discrete transition point is not identified. Descending colostomy is noted. Postoperative findings consistent with resection of the distal colon and rectum are noted. Trace fluid within the operative bed is likely postsurgical. There is no lymphadenopathy. Mild compression deformity of the superior plate of L1 is noted. Postoperative f indings within the thoracolumbar spine are noted. No acute fracture within the lumbar spine or pelvis is identified. No acute proximal femoral fracture is noted. IMPRESSION: 1. Fluid-filled distended stomach and proximal to mid small bowel. Decompressed distal small bowel however no well-defined transition point. The findings could reflect a partial small bowel obstruction or a nonspecific gastroenteritis. Nasogastric tube placement might be considered. 2. No acute traumatic findings within the abdomen or pelvis. 3. Multifocal airspace opacities within lungs which could reflect pneumonia or aspiration pneumonitis. ACT 112: Negative or not required by law. Electronically signed by: Salvador Sim M.D. 04/19/2021 6:[address] 04/19/21 17:45 CT OF THE CERVICAL SPINE WITHOUT CONTRAST CLINICAL HISTORY: fall COMPARISON STUDY: Cervical spine CT December 19, 2020. TECHNIQUE: Helical axial images of the cervical spine were obtained without IV contrast. Sagittal and coronal reconstructions were viewed. Automated exposure control was utilized for the study. A dose lowering technique was utilized adhering to the principles of ALARA. FINDINGS: There are stable postoperative findings following C4-C7 anterior discectomy and fusion. There also postoperative findings consistent with posterior fusion at these levels. Alignment of the cervical spine is anatomic. Vertebral body heights are maintained. No acute cervical spine fracture or subluxation is present. There is no prevertebral edema. Facet joints are intact. Compression deformity of the superior plate of T1 is unchanged since prior examination. IMPRESSION: No acute cervical spine fracture or subluxation. Stable postoperative findings within the cervical spine. ACT 112: Negative or not required by law. Electronically signed by: Salvador Sim M.D. 04/19/2021 6:17 PM Chest CTA 04/19/21 17:45 CT ANGIOGRAPHY OF THE CHEST, PULMONARY EMBOLUS PROTOCOL CLINICAL HISTORY: Syncope. Fall. Shortness of breath. COMPARISON STUDY: Chest CT October 10, 2012. Chest radiograph performed earlier today. TECHNIQUE: Following IV administration of 120 mL of Optiray, helical axial images of the chest were obtained utilizing the pulmonary embolus protocol. Maximal intensity projections and sagittal and coronal reformats were viewed on an independent 3D workstation. IV contrast was administered without complication. Automated exposure control was utilized for the study. A dose lowering technique was utilized adhering to the principles of ALARA. CT DOSE: 2457.38 mGy.cm FINDINGS: No pulmonary emboli are identified although the segmental and subsegmental pulmonary arteries are suboptimally assessed due to respiratory motion. There is no thoracic aortic dissection. Ascending aorta is mildly dilated, measuring 4.2 cm. There is mild dilatation of the central pulmonary arteries. Cardiomegaly is noted. There is no pericardial effusion. The stomach is fluid-filled and distended. This is better depicted on the CT of the abdomen and pelvis. Moderate bilateral airspace opacities are noted, greatest within the bilateral lower lobes and the lingula. Central airways are patent. Lungs are suboptimally assessed due to respiratory motion. There is no pneumothorax or pleural effusion. Old mild T1, T2 and T3 compression fractures are noted. IMPRESSION: 1. No pulmonary emboli identified although segmental and subsegmental pulmonary arteries suboptimally assessed due to respiratory motion. 2. Moderate multifocal airspace opacities within lungs. The findings favor pneumonia or less likely aspiration pneumonitis. Follow-up chest CT in 3 months to ensure resolution is recommended. 3. Mild dilatation of the ascending aorta, measuring 4.2 cm. No thoracic aortic dissection. 4. Mild dilatation of the central pulmonary arteries which may reflect pulmonary arterial hypertension. 5. Fluid-filled distended stomach, better depicted on the CT of the abdomen and pelvis which will be reported separately. ACT 112: Negative or not required by law. Electronically signed by: Salvador Sim M.D. 04/19/2021 6:[address] 04/19/21 17:45 CT OF THE HEAD WITHOUT CONTRAST CLINICAL HISTORY: Syncope. COMPARISON STUDY: Head CT December 19, 2020. TECHNIQUE: Helical axial images of the head were obtained without IV contrast. Automated exposure control was utilized for the study. A dose lowering technique was utilized adhering to the principles of ALARA. FINDINGS: No acute intracranial hemorrhage, midline shift or mass effect is present. White matter hypodensities reflect small vessel disease. The ventricular system is unremarkable. The basal cisterns are patent. No extra- axial collections are present. There are no findings to suggest acute dural sinus thrombosis or acute territorial infarct. No significant calvarial abnormalities are present. Visualized portions of the sinuses and mastoid air cells are clear. Postoperative findings within the sinuses are noted. IMPRESSION: 1. No acute intracranial findings. 2. No calvarial fracture. ACT 112: Negative or not required by law. Electronically signed by: Salvador Sim M.D. 04/19/2021 6:15 PM Code Status & VTE Plan VTE Prophylaxis Plan VTE Prophylaxis will be ordered: Yes PG Care Time/CCT Total # of Minutes Spent Total Time Spent with Patient: Total time spent is greater than 50% in coordination of care (as documented) at patient's floor/unit and/or counseling patient: Coding Level of Care Code 47253 Initial Inpt Care Lvl 3 Diagnoses SBO (small bowel obstruction) K56.609 Acute upper gastrointestinal bleeding K92.2 Hypoxia R09.02 Contusion of face S00.83XA Encounter type: initial encounter CAD (coronary artery disease), [place] coronary artery I25.10 Hyponatremia E87.1 BPH with obstruction/lower urinary tract symptoms N40.1; N13.8 DM2 (diabetes mellitus, type 2) E11.[address] Z93.3 Gastroesophageal reflux K21.9 Hypertension I10 Hypertension type: essential hypertension Hypomagnesemia E83.42 Hypophosphatemia E83.39 Hypocalcemia E83.51 LYUBOV (acute kidney injury) N17.9 High anion gap metabolic acidosis E87.2 (1) Contusion of face Encounter type: initial encounter Qualified Code(s): S00.83XA - Contusion of other part of head, initial encounter (2) Hypertension Hypertension type: essential hypertension Qualified Code(s): I10 - Essential (primary) hypertension
[2021-04-19 20:32] LABS: Base Excess VBG -9.6 mEq/L; HCO3 VBG 17 mmol/L; PCO2 VBG 39 mmHg (38-50); PO2 VBG 30 mmHg; pH VBG 7.25 (7.36-7.41)
[2021-04-19 20:33] LABS: Oxygen Saturation VBG < 60.0 %
[2021-04-19 21:55] LABS: Troponin I 0.24 ng/ml (0-0.04)
[2021-04-19 22:09] LABS: Magnesium 1.2 mg/dl (1.7-2.4); Phosphorus 1.6 mg/dl (2.5-4.9)
[2021-04-19] MEDS ORDERED: DEXTROSE 50% 50 ML SYRINGE IV PRN (22:48)
[2021-04-19] MEDS ORDERED: CARBOHYDRATES FOR HYPOGLYCEMIA PO PRN (22:48)
[2021-04-19] MEDS ORDERED: LACTATED RINGER'S 1,000 ML IV SCH (22:48)
[2021-04-19] MEDS ORDERED: ONDANSETRON INJ 2 MG/ML 2 ML VIAL IV PRN (22:48)
[2021-04-19] MEDS ORDERED: GLUCAGON FOR INJ 1 MG VIAL SQ PRN (22:48)
[2021-04-19] MEDS ORDERED: GLUCOSE 40% GEL 15 GM TUBE PO PRN (22:48)
[2021-04-19] MEDS ORDERED: GLUCOSE 10 TABS/TUBE PO PRN (22:48)
[2021-04-19] MEDS: BACLOFEN 20 MG TAB PO SCH (23:11)
[2021-04-19] MEDS: GABAPENTIN 600 MG TAB PO SCH (23:12)
[2021-04-19] MEDS ORDERED: SODIUM PHOSPHATE 3 MMOL/1 ML INFUSION IV STA (23:31)
[2021-04-19] MEDS ORDERED: STAT IV STA (23:32)
[2021-04-19] MEDS: MAGNESIUM SULFATE / D5W 1 GM/100 ML BAG IV SCH (23:51)
[2021-04-20] MEDS ORDERED: CALCIUM GLUCONATE 10% 1,000 MG in DEXTROSE 5% 50 ML IV ONE
[2021-04-20] MEDS ORDERED: SODIUM PHOSPHATE 9 MMOL in DEXTROSE 5% 250 ML IV ONE
[2021-04-20] MEDS: INSULIN ASPART PER UNIT SC SCH ×4 (00:28→18:13)
[2021-04-20] MEDS: MAGNESIUM SULFATE / D5W 1 GM/100 ML BAG IV SCH ×2 (01:41→03:14)
[2021-04-20] MEDS: PANTOprazole 40 MG in DEXTROSE 5% 100 ML IV SCH ×4 (04:29→20:28)
[2021-04-20 04:49] LABS: Hematocrit (blood only) 30.6 % (42-52); Hemoglobin 10.5 g/dL (14.0-18.0); Lymphocytes # (auto) 0.73 K/uL (1.2-3.4); Lymphocytes % (auto) 17.3 %; Mean Corpuscular Hemoglobin 29.7 pg (25-34); Mean Corpuscular Hgb Conc 34.3 g/dL (32-36); Mean Corpuscular Volume 86.7 fL (80-100); Mean Platelet Volume 9.6 fL (7.4-10.4); Monocytes % (auto) 2.4 %; Neutrophils # (auto) 3.39 K/uL (1.4-6.5); Neutrophils % (auto) 80.3 %; Platelet Count 139 K/uL (130-400); RDW Coefficient of Variation 13.4 % (11.5-14.5); RDW Standard Deviation 42.9 fL (36.4-46.3); Red Blood Count 3.53 M/uL (4.7-6.1); White Blood Count 4.22 K/uL (4.8-10.8)
[2021-04-20 06:10] LABS: Albumin Level 3.3 gm/dl (3.4-5.0); BUN Creatinine Ratio 23.7 (10-20); Bilirubin Direct 0.2 mg/dl (0-0.2); Bilirubin,Total 0.9 mg/dl (0.2-1.0); Creatinine Clr Calc Pharmacy 60.3 ml/min; Est GFR (Non-African American) 61.3 ml/min; Magnesium 2.3 mg/dl (1.7-2.4); Phosphorus 3.3 mg/dl (2.5-4.9); Potassium 4.4 mmol/L (3.5-5.1); Total Protein 5.8 gm/dl (6.0-8.3); Troponin I 0.38 ng/ml (0-0.04)
--- NOTE | 2021-04-20 07:45 | Hospitalist Progress Note ---
Date of Service April 20, 2021 Assessment & Plan (1) SBO (small bowel obstruction): Plan: 71yo male with multiple medical comorbidities presenting with abdominal distention, nausea with bilious and coffee ground emesis, syncopal event prior to arrival. Patient hypotensive, tachycardic, tachypneic and hypoxic on arrival. Elevated WBC=12.79. CT of the abdomen with a fluid-filled distended stomach and proximal to mid small bowel possibly reflecting a partial SBO or nonspecific gastroenteritis. Patient has an NGT in place to suction with return of >1L of dark fluid with improvement in abdominal distention, nausea and pain. Patient is on chronic opioids which could be contributing - NPO, Maintain NGT to low intermittent suction. Monitor output -Pain control, anti-emetics -IVF with LR at 80mL/hr -General Surgery consultation, recommends medical management and surgery as a last resort (2) Acute upper gastrointestinal bleeding: Plan: Report of coffee ground emesis prior to arrival. Patient was hypotensive and tachycardic on arrival. -volume resuscitated, hgb 10.5 04/20/21 -Hold ASA and Plavix -Continue Protonix gtt (3) Hypoxia: Plan: Acute hypoxic respiratory failure present on admission. He is presently breathing comfortably on 3L NC with saturations of 93%. CTA with moderate multifocal airspace opacities within the lungs possibly PNA. Patient denies prodrome of fever, chills, sweats, fatigue, cough or SOB. He has received Covid-19 vaccine x 2 + booster and has had no known Covid-19 exposures. His Covid-19 NAAT test in the ER is NEGATIVE. Possibly secondary to aspiration -Continue supplemental O2 -elevated procalcitonin 31.2-> resume zosyn -Aspiration precautions (4) CAD (coronary artery disease), [place] coronary artery: Plan: Patient with history of CAD s/p STEMI. He denies chest pain, SOB. Elevated troponin on arrival at 0.05 --> 0.24. EKG with some nonspecific findings. Suspect supply-demand mismatch in setting of hypotension, tachycardia and hypoxia. -Holding ASA and Plavix for now due to concern for GIB -Hold Atorvastatin for now -Hold Lisinopril and Metoprolol given hypotension on arrival - troponin 0.05->0.24->0.38 -Repeat EKG in AM shows some lateral st changes will obtain another (5) Hypomagnesemia: Plan: -Replete (6) Hypophosphatemia: Plan: -Repeat (7) Hypocalcemia: Plan: Ionized calcium low at 0.98 -1gm calcium gluconate (8) LYUBOV (acute kidney injury): Plan: Improved after volume resusitation, now low sodium Patient is making urine -Avoid nephrotoxic agents -Renal dosing where needed -Monitor UOP, BUN, Cr, Electrolytes (9) High anion gap metabolic acidosis: Plan: this has closed (10) Hyponatremia: Plan: [id number]=[id number]. Patient with chronic hyponatremia with Na ranging from 127 - 135 over the last 5 months. -Repeat chemistry in AM (11) Contusion of face: Plan: Patient with bruising over left eye following a syncopal event. No focal deficits noted on exam. CT of the head and C-spine are negative for acute pathology. 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 Stable on medications -Monitor UOP -Continue Flomax 0.4mg po qHS (13) DM2 (diabetes mellitus, type 2): Plan: Chronic. Last [id number]=8.7 on 11/04/20. 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 Site appears clean. Minimal output in bag -Routine maintenance q shift -Monitor output (15) Hypertension: Plan: Blood pressure low on arrival -Hold Amlodipine, Lisinopril, Metoprolol -Monitor Plan: F/E/N - LR at 80mL/hr, electrolyte repletion , NPO Ppx - SCDs to bilateral LE Code - Full Dispo - Admit to PCU Admission and Anticipated Discharge Date Admission Date: April 19, 2021 Subjective Patient seen and examined. States his abdomen is feeling better with less pain. No nausea or vomiting has NG tube to low intermittent suction but getting occasional medications via OG. Clamping afterwards without vomiting. No significant ostomy output but there is some weights in his bag Afebrile. Review of Systems Review of Systems: Moderate distress and fatigue no headache, no visual changes no speech or swallowing issues no chest pain, pressure or palpitations Mild shortness of breath, without cough or wheezes Mild abdominal pain, nausea or vomiting, ostomy left quadrant with stool in the bag small amount no dysuria, hematuria or frequency no focal joint pain or swelling no back pain, CVA tenderness or radicular pain no bruising, bleeding or rashes no focal signs of weakness or numbness or altered sensation no complaints of anxiety or depression.. Physical Exam Physical Exam: The patient appeared well nourished and normally developed. Vital signs as documented. Wearing some supplemental oxygen 6 L to maintain oxygen saturations Head exam is normocephalic atraumatic is an OG tube in and OxiMax on his face Neck is without JVD, thyromegaly, or carotid bruits. Lungs are clear to auscultation, no focal loss of breath sounds Cardiac exam, Rhythm is regular.. No murmurs, rubs or gallops. Abdominal exam reveals hypoactive bowel sounds soft mild tenderness in the right lower quadrant colostomy in the left sided abdomen with Play-Heather consistency stool in his bag Extremities are nonedematous and both pedal pulses are present Neurologic exam is alert and oriented, no focal loss of strength or sensation Skin is without bruises or rashes Psychologically is without concerns for anxiety or depression.. Results & Data Results & Data ([facility]) Vital Signs (Past 12 Hours) Vital Signs Temp Pulse Pulse Resp BP BP Pulse Ox 04/20/21 04:30 120 H 23 97 04/20/21 04:00 98.6 F 124 H 29 H 124/82 97 04/20/21 00:57 98.2 F 129 H 20 115/71 92 04/20/21 00:30 129 H 10 L 94 04/20/21 00:00 121 H 25 H 115/71 93 04/19/21 23:30 121 H 25 H 88 L 04/19/21 23:00 122 H 16 94 04/19/21 22:56 98.2 F 121 H 19 118/74 94 04/19/21 22:45 123 H 21 95 04/19/21 21:30 123 H 25 H 124/77 93 04/19/21 21:05 113 H 23 107/61 95 04/19/21 21:00 116 H 23 107/61 94 04/19/21 20:30 119 H 23 117/74 93 04/19/21 20:00 115 H 22 119/78 95 PG Care Time/CCT Total # of Minutes Spent Total Time Spent with Patient: Total time spent is greater than 50% in coordination of care (as documented) at patient's floor/unit and/or counseling patient: Coding Level of Care Code 88602 Subseq Hosp Care Lvl 3 Diagnoses SBO (small bowel obstruction) K56.609 Acute upper gastrointestinal bleeding K92.2 Hypoxia R09.02 CAD (coronary artery disease), tetlin coronary artery I25.10 Hypomagnesemia E83.42 Hypophosphatemia E83.39 Hypocalcemia E83.51 LYUBOV (acute kidney injury) N17.9 High anion gap metabolic acidosis E87.2 Hyponatremia E87.1 Contusion of face S00.83XA Encounter type: initial encounter BPH with obstruction/lower urinary tract symptoms N40.1; N13.8 DM2 (diabetes mellitus, type 2) E11.[address] Z93.3 Hypertension I10 Hypertension type: essential hypertension (1) Contusion of face Encounter type: initial encounter Qualified Code(s): S00.83XA - Contusion of other part of head, initial encounter (2) Hypertension Hypertension type: essential hypertension Qualified Code(s): I10 - Essential (primary) hypertension
[2021-04-20] MEDS ORDERED: PIPERACILL/TAZOBAC CONSULT ACTIVE PRN (07:48)
[2021-04-20] MEDS ORDERED: PIPERACILLIN/TAZOBACTAM 4.5 GM in DEXTROSE 5% 100 ML IV ONE (08:00)
[2021-04-20] MEDS: GABAPENTIN 600 MG TAB PO SCH ×4 (08:27→20:45)
[2021-04-20] MEDS: BACLOFEN 20 MG TAB PO SCH ×3 (08:27→20:45)
[2021-04-20] MEDS: MoRPHine SULFATE 2 MG/ML CARP IV PRN ×3 (09:07→22:53)
--- NOTE | 2021-04-20 09:57 | Surgery Progress Note ---
Date of Service April 20, 2021 Assessment & Plan (1) SBO (small bowel obstruction): Plan: He seems to be improving slowly after placement of his NG tube KUB image reviewed and still has some dilated loops of small bowel, awaiting radiology read Would continue the NG tube/n.p.o. for now and repeat KUB in the morning We will continue nonoperative management of his small bowel obstruction We will follow Admission and Anticipated Discharge Date Admission Date: April 19, 2021 Subjective Patient seen and examined. States his abdomen is feeling better with less pain. No nausea or vomiting. No significant ostomy output. Afebrile. Review of Systems Constitutional: no fever and no chills Gastrointestinal: + abdominal pain; no nausea and no vomiting Physical Exam Constitutional: WD/WN, vitals as above Gastrointestinal (Abdomen): Inspection/Auscultation: + abdomen distended (Mild) and + abdominal surgical scar Percussion/Palpation: + abdomen tender (Minimally generalized) and abdomen soft; no guarding, abdomen not rigid and no hernia Left lower quadrant ostomy with scant output Results & Data ([facility]) Vital Signs (Past 12 Hours) Vital Signs Temp Pulse Pulse Resp BP BP Pulse Ox 04/20/21 07:45 37.1 C 115 H 20 130/74 96 04/20/21 04:30 120 H 23 97 04/20/21 04:00 37.0 C 124 H 29 H 124/82 97 04/20/21 00:57 36.8 C 129 H 20 115/71 92 04/20/21 00:30 129 H 10 L 94 04/20/21 00:00 121 H 25 H 115/71 93 04/19/21 23:30 121 H 25 H 88 L 04/19/21 23:00 122 H 16 94 04/19/21 22:56 36.8 C 121 H 19 118/74 94 04/19/21 22:45 123 H 21 95 PG Care Time/CCT Total # of Minutes Spent Total Time Spent with Patient: Total time spent is greater than 50% in coordination of care (as documented) at patient's floor/unit and/or counseling patient: Coding Level of Care Code 85475 Subseq Hosp Care Lvl 1 Diagnoses SBO (small bowel obstruction) K56.609
--- NOTE | 2021-04-20 09:58 | XRay Report ---
XR KUB/Abdomen 1 view CLINICAL HISTORY: Abdominal pain. Evaluate for small bowel obstruction.. COMPARISON STUDY: No previous studies for comparison. TECHNIQUE: Single view of the abdomen. FINDINGS: There are a few mildly dilated gas-filled loops of small bowel present. The remainder of the small an d large bowel is decompressed. While an early partial small bowel obstruction cannot be excluded, the se findings can also be seen with ileus versus gastroenteritis. There is no evidence for organomegaly or gross intra-abdominal mass. No abnormal calcifications are seen along the course of the urinary t racts bilaterally. No acute osseous pathology. IMPRESSION: 1.A few mildly dilated loops of small bowel present as described above. If the patient's pain persist s, follow-up study would be recommended. ACT 112: Negative or not required by law. Electronically signed by: Lebron Obrien M.D. 04/20/2021 9:57 AM
[2021-04-20] MEDS: PIPERACILLIN/TAZOBACTAM 3.375 GM in DEXTROSE 5% 100 ML IV SCH ×2 (11:49→20:45)
[2021-04-20 13:27] LABS: BUN Creatinine Ratio 22.9 (10-20); Calcium 7.8 mg/dl (8.5-10.1); Creatinine Clr Calc Pharmacy 67.7 ml/min; Est GFR (African American) 81.8 ml/min; Est GFR (Non-African American) 70.6 ml/min; Potassium 4.3 mmol/L (3.5-5.1)
[2021-04-20 13:41] LABS: Troponin I 0.17 ng/ml (0-0.04)
--- NOTE | 2021-04-20 22:24 | Electrocardiogram Report ---
Test Reason : Blood Pressure : / mmHG Vent. Rate : 118 BPM Atrial Rate : 118 BPM P-R Int : 162 ms QRS Dur : 090 ms QT Int : 316 ms P-R-T Axes : 065 014 072 degrees QTc Int : 442 ms Poor data quality, interpretation may be adversely affected Sinus tachycardia Inferior-posterior infarct , age undetermined Abnormal ECG When compared with ECG of 05-AUG-2018 17:45, Inferior-posterior infarct is now Present Confirmed by Roney Lloyd ([id number]) on 04/20/2021 10:24:27 PM Referred By: REFERRED SELF Confirmed By:Roney Lloyd
--- NOTE | 2021-04-20 22:25 | Electrocardiogram Report ---
Test Reason : Blood Pressure : / mmHG Vent. Rate : 106 BPM Atrial Rate : 106 BPM P-R Int : 160 ms QRS Dur : 092 ms QT Int : 344 ms P-R-T Axes : 068 011 045 degrees QTc Int : 456 ms Sinus tachycardia with Premature atrial complexes Inferior-posterior infarct (cited on or before 20-APR-2020) Abnormal ECG When compared with ECG of 20-APR-2020 05:00, Premature atrial complexes are now Present Confirmed by Roney Lloyd ([id number]) on 04/20/2021 10:24:49 PM Referred By: REFERRED SELF Confirmed By:Roney Lloyd
--- NOTE | 2021-04-20 22:37 | Electrocardiogram Report ---
Test Reason : Blood Pressure : / mmHG Vent. Rate : 150 BPM Atrial Rate : 150 BPM P-R Int : 128 ms QRS Dur : 080 ms QT Int : 268 ms P-R-T Axes : 052 007 070 degrees QTc Int : 423 ms Sinus tachycardia with Premature atrial complexes Lateral infarct (cited on or before 20-APR-2020) Inferior-posterior infarct (cited on or before 20-APR-2020) Abnormal ECG When compared with ECG of 19-DEC-2020 01:48, Premature atrial complexes are now Present Vent. rate has increased BY 63 BPM Nonspecific T wave abnormality has replaced inverted T waves in Inferior leads Confirmed by Roney Lloyd ([id number]) on 04/20/2021 10:37:25 PM Referred By: REFERRED SELF Confirmed By:Roney Lloyd
[2021-04-21] MEDS: INSULIN ASPART PER UNIT SC SCH ×4 (00:57→18:36)
[2021-04-21] MEDS: PANTOprazole 40 MG in DEXTROSE 5% 100 ML IV SCH ×5 (01:14→20:04)
[2021-04-21] MEDS: MoRPHine SULFATE 2 MG/ML CARP IV PRN ×3 (03:19→14:48)
[2021-04-21] MEDS: PIPERACILLIN/TAZOBACTAM 3.375 GM in DEXTROSE 5% 100 ML IV SCH ×3 (03:20→20:02)
[2021-04-21] MEDS: GABAPENTIN 600 MG TAB PO SCH ×4 (07:59→20:04)
[2021-04-21] MEDS: BACLOFEN 20 MG TAB PO SCH ×3 (08:00→20:04)
--- NOTE | 2021-04-21 08:29 | Surgery Progress Note ---
Date of Service April 21, 2021 Assessment & Plan (1) SBO (small bowel obstruction): Plan: Patient starting to put out some stool from ostomy NGT put out 50cc overnight Pt denies n/v, only mild abdominal discomfort. It is currently clamped for meds and he has no complaints Keep NGT for time being, will obtain KUB today for further evaluation prior to considering removal Admission and Anticipated Discharge Date Admission Date: April 19, 2021 Supervising Physician Co-Signing Physician Notes I personally saw and evaluated the patient with Kitty España PA-C and agree with the assessment and plan. 71-year-old male with partial small bowel obstruction versus chronic constipation Clamp trial for his NG tube, may remove later today His KUB does look slightly improved over the last 2 days He has no signs of any bowel ischemia on exam We will continue to treat nonoperatively Subjective Patient offers no major complaints. Has some back pain. Denies n/v. Reports having some ostomy output. Some mild discomfort to palpation of abdomen. Physical Exam Physical Exam: resting quietly, but communicative when awoken Respiratory: normal respiratory effort Gastrointestinal (Abdomen): Inspection/Auscultation: + abdomen distended (mild) Percussion/Palpation: + abdomen tender (mild generalized discomfort to palpation) and abdomen soft Results & Data ([facility]) Vital Signs (Past 12 Hours) Vital Signs Temp Pulse Pulse Resp BP BP Pulse Ox 04/21/21 07:10 36.9 C 105 H 12 154/81 H 97 04/21/21 03:54 36.6 C 103 H 12 149/88 H 97 04/20/21 23:04 36.8 C 103 H 18 129/79 97 04/20/21 21:25 36.8 C 99 H 21 148/80 H 93 04/20/21 20:30 109 H 21 96 PG Care Time/CCT Total # of Minutes Spent Total Time Spent with Patient: Total time spent is greater than 50% in coordination of care (as documented) at patient's floor/unit and/or counseling patient: Coding Level of Care Code 35738 Subseq Hosp Care Lvl 1 Diagnoses SBO (small bowel obstruction) K56.609
--- NOTE | 2021-04-21 08:37 | Hospitalist Progress Note ---
Date of Service April 21, 2021 Assessment & Plan (1) SBO (small bowel obstruction): Plan: 71yo male History of previous colostomy for rectal carcinoma, persents with sbo, CT of the abdomen with a fluid-filled distended stomach and proximal to mid small bowel possibly reflecting a partial SBO or nonspecific gastroenteritis. Patient has an NGT in place to suction with return of >1L of dark fluid with improvement in abdominal distention, nausea and pain. Patient is on chronic opioids which could be contributing - NPO, Surgery is going to make call on advancing diet -Pain control, anti-emetics -IVF with NSS @100mL/hr -General Surgery consultation, recommends medical management and surgery as a last resort (2) Acute upper gastrointestinal bleeding: Plan: Report of coffee ground emesis prior to arrival. Patient was hypotensive and tachycardic on arrival. -volume resuscitated, hgb 9.4 04/20/21 -Hold ASA and Plavix -Continue Protonix will make bolus bid (3) Hypoxia: Plan: Acute hypoxic respiratory failure present on admission. He is presently breathing comfortably on 3L NC with saturations of 93%. CTA with moderate multifocal airspace opacities within the lungs possibly PNA. Patient denies prodrome of fever, chills, sweats, fatigue, cough or SOB. He has received Covid-19 vaccine x 2 + booster and has had no known Covid-19 exposures. His Covid-19 NAAT test in the ER is NEGATIVE. Possibly secondary to aspiration -Continue supplemental O2 -elevated procalcitonin 31.2-> resume zosyn CT with multifocal airspace opacities in lungs -Aspiration precautions (4) CAD (coronary artery disease), [place] coronary artery: Plan: Patient with history of CAD s/p STEMI. He denies chest pain, SOB. Elevated troponin on arrival at 0.05 --> 0.24. EKG with some nonspecific findings. Suspect supply-demand mismatch in setting of hypotension, tachycardia and hypoxia. -Holding ASA and Plavix for now due to concern for GIB -Hold Atorvastatin for now -Hold Lisinopril and Metoprolol given hypotension on arrival - troponin 0.05->0.24->0.38->0.17 -Repeat EKG in AM without acute changes (5) Hypomagnesemia: Plan: -Replete (6) Hypophosphatemia: Plan: -Repeat (7) Hypocalcemia: Plan: Ionized calcium low at 0.98 -1gm calcium gluconate (8) LYUBOV (acute kidney injury): Plan: Improved after volume resusitation, now low sodium Patient is making urine -Avoid nephrotoxic agents -Renal dosing where needed -Monitor UOP, BUN, Cr, Electrolytes (9) High anion gap metabolic acidosis: Plan: this has closed (10) Hyponatremia: Plan: Uc=565. Patient with chronic hyponatremia with Na ranging from 127 - 135 over the last 5 months. -Repeat chemistry confirms run isotonic saline (11) Contusion of face: Plan: Patient with bruising over left eye following a syncopal event. No focal deficits noted on exam. CT of the head and C-spine are negative for acute pathology. 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 Stable on medications -Monitor UOP -Continue Flomax 0.4mg po qHS (13) DM2 (diabetes mellitus, type 2): Plan: Chronic. Last DzhC2L=6.7 on 11/04/20. 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 Site appears clean. Minimal output in bag -Routine maintenance q shift -Monitor output (15) Hypertension: Plan: Blood pressure low on arrival -Hold Amlodipine, Lisinopril, Metoprolol -Monitor Plan: F/E/N - LR at 80mL/hr, electrolyte repletion , NPO Ppx - SCDs to bilateral LE Code - Full Dispo - Admit to PCU Admission and Anticipated Discharge Date Admission Date: April 19, 2021 Subjective pt continues to complain of little surgery is clamping ngt based on clinical assesment, KUB with little improvement, hgb did drop 4 gms from admission but no rise in BUN to correlate with UGI bleed. some stool in ostomy, likel playdoe Review of Systems Review of Systems: Moderate distress and fatigue no headache, no visual changes no speech or swallowing issues no chest pain, pressure or palpitations Mild shortness of breath, without cough or wheezes Mild abdominal pain, nausea or vomiting, ostomy left quadrant with stool in the bag small amount no dysuria, hematuria or frequency no focal joint pain or swelling no back pain, CVA tenderness or radicular pain no bruising, bleeding or rashes no focal signs of weakness or numbness or altered sensation no complaints of anxiety or depression.. Physical Exam Physical Exam: The patient appeared well nourished and normally developed. Vital signs as documented. Wearing some supplemental oxygen 6 L to maintain oxygen saturations Head exam is normocephalic atraumatic is an OG tube in and OxiMax on his face Neck is without JVD, thyromegaly, or carotid bruits. Lungs are clear to auscultation, no focal loss of breath sounds Cardiac exam, Rhythm is regular.. No murmurs, rubs or gallops. Abdominal exam reveals hypoactive bowel sounds soft mild tenderness in the right lower quadrant colostomy in the left sided abdomen with Play-Heather consistency stool in his bag Extremities are nonedematous and both pedal pulses are present Neurologic exam is alert and oriented, no focal loss of strength or sensation Skin is without bruises or rashes Psychologically is without concerns for anxiety or depression.. Results & Data Results & Data ([facility]) Vital Signs (Past 12 Hours) Vital Signs Temp Pulse Resp BP BP Pulse Ox 04/21/21 07:10 98.4 F 105 H 12 154/81 H 97 04/21/21 03:54 97.9 F 103 H 12 149/88 H 97 04/20/21 23:04 98.2 F 103 H 18 129/79 97 04/20/21 21:25 98.2 F 99 H 21 148/80 H 93 PG Care Time/CCT Total # of Minutes Spent Total Time Spent with Patient: Total time spent is greater than 50% in coordination of care (as documented) at patient's floor/unit and/or counseling patient: Coding Level of Care Code 19678 Subseq Hosp Care Lvl 3 Diagnoses SBO (small bowel obstruction) K56.609 Acute upper gastrointestinal bleeding K92.2 Hypoxia R09.02 CAD (coronary artery disease), [place] coronary artery I25.10 Hypomagnesemia E83.42 Hypophosphatemia E83.39 Hypocalcemia E83.51 LYUBOV (acute kidney injury) N17.9 High anion gap metabolic acidosis E87.2 Hyponatremia E87.1 Contusion of face S00.83XA Encounter type: initial encounter BPH with obstruction/lower urinary tract symptoms N40.1; N13.8 DM2 (diabetes mellitus, type 2) E11.[address] Z93.3 Hypertension I10 Hypertension type: essential hypertension (1) Contusion of face Encounter type: initial encounter Qualified Code(s): S00.83XA - Contusion of other part of head, initial encounter (2) Hypertension Hypertension type: essential hypertension Qualified Code(s): I10 - Essential (primary) hypertension
[2021-04-21 09:07] LABS: Hematocrit (blood only) 27.8 % (42-52); Hemoglobin 9.4 g/dL (14.0-18.0); Mean Corpuscular Hemoglobin 28.8 pg (25-34); Mean Corpuscular Hgb Conc 33.8 g/dL (32-36); Mean Corpuscular Volume 85.3 fL (80-100); Mean Platelet Volume 9.3 fL (7.4-10.4); Platelet Count 130 K/uL (130-400); RDW Coefficient of Variation 12.7 % (11.5-14.5); RDW Standard Deviation 39.5 fL (36.4-46.3); Red Blood Count 3.26 M/uL (4.7-6.1); White Blood Count 3.87 K/uL (4.8-10.8)
[2021-04-21 09:30] LABS: BUN Creatinine Ratio 20.4 (10-20); Calcium 7.9 mg/dl (8.5-10.1); Creatinine Clr Calc Pharmacy 76.5 ml/min; Est GFR (African American) 94.7 ml/min; Est GFR (Non-African American) 81.7 ml/min; Magnesium 1.8 mg/dl (1.7-2.4); Potassium 4.2 mmol/L (3.5-5.1)
[2021-04-21] MEDS: SODIUM CHLORIDE 0.9% 1000ML 1,000 ML IV SCH ×2 (11:00→20:05)
--- NOTE | 2021-04-21 13:00 | XRay Report ---
KUB HISTORY: Small bowel obstruction. Follow-up. COMPARISON: KUB 04/20/2021. FINDINGS: There is a Cordova catheter and a right femoral central venous catheter which are unchanged i n position. Extensive lumbosacral spinal hardware remains unchanged. Multiple dilated gas-filled loop s of small bowel remain unchanged and are consistent with a partial small bowel obstruction or ileus. No renal calculi. No ureteral calculi. No pneumoperitoneum or pneumatosis. Nasogastric tube termina heavenly in the stomach. IMPRESSION: No change in the multiple dilated gas-filled loops of small bowel seen throughout the abdomen. This c an be seen in the setting of a partial small bowel obstruction versus ileus. ACT 112: Negative or not required by law. Electronically signed by: Toan Springer M.D. 04/21/2021 12:59 PM
[2021-04-22] MEDS: MoRPHine SULFATE 2 MG/ML CARP IV PRN (00:14)
[2021-04-22] MEDS: INSULIN ASPART PER UNIT SC SCH ×5 (00:23→20:43)
[2021-04-22] MEDS: PANTOprazole 40 MG in DEXTROSE 5% 100 ML IV SCH ×5 (01:11→21:33)
[2021-04-22] MEDS: PIPERACILLIN/TAZOBACTAM 3.375 GM in DEXTROSE 5% 100 ML IV SCH ×3 (04:11→19:34)
[2021-04-22 06:16] LABS: Hematocrit (blood only) 26.9 % (42-52); Hemoglobin 9.1 g/dL (14.0-18.0); Mean Corpuscular Hemoglobin 28.9 pg (25-34); Mean Corpuscular Hgb Conc 33.8 g/dL (32-36); Mean Corpuscular Volume 85.4 fL (80-100); Mean Platelet Volume 9.3 fL (7.4-10.4); Platelet Count 148 K/uL (130-400); RDW Coefficient of Variation 12.9 % (11.5-14.5); RDW Standard Deviation 40.1 fL (36.4-46.3); Red Blood Count 3.15 M/uL (4.7-6.1); White Blood Count 5.16 K/uL (4.8-10.8)
[2021-04-22 06:23] LABS: BUN Creatinine Ratio 13.3 (10-20); Calcium 7.7 mg/dl (8.5-10.1); Creatinine Clr Calc Pharmacy 85.7 ml/min; Est GFR (African American) 101.9 ml/min; Est GFR (Non-African American) 87.9 ml/min; Potassium 3.9 mmol/L (3.5-5.1)
[2021-04-22] MEDS: SODIUM CHLORIDE 0.9% 1000ML 1,000 ML IV SCH ×2 (06:29→16:37)
[2021-04-22] MEDS: BACLOFEN 20 MG TAB PO SCH ×3 (08:39→20:09)
[2021-04-22] MEDS: GABAPENTIN 600 MG TAB PO SCH ×4 (08:39→20:08)
--- NOTE | 2021-04-22 09:41 | XRay Report ---
XR KUB/Abdomen 1 view CLINICAL HISTORY: eval sbo TECHNIQUE: 1 view of the abdomen was obtained. Comparison: Comparison is made to abdomen radiograph 04/21/2021 FINDINGS: Orthopedic hardware is again seen. Multiple gas dilated loops of small bowel are seen measuring up to 39 mm. Small stool burden is seen. IMPRESSION: Redemonstration of multiple gas-distended loops of small bowel, slightly increased from prior exam. T his may represent ileus versus partial small bowel obstruction. ACT 112: Negative or not required by law. Electronically signed by: Gary Tran M.D. 04/22/2021 9:39 AM
--- NOTE | 2021-04-22 09:55 | Surgery Progress Note ---
Date of Service April 22, 2021 Assessment & Plan (1) SBO (small bowel obstruction): Plan: Patient tolerated NGT clamp trial and removal yesterday He currently denies any abdominal symptoms Small amount of stool in ostomy bag this AM Will advance to clear liquids Admission and Anticipated Discharge Date Admission Date: April 19, 2021 Supervising Physician Co-Signing Physician Notes I personally saw and evaluated the patient with Kitty España PA-C and agree with the assessment and plan. 71-year-old male with partial small bowel obstruction versus chronic constipation Start Clears, advance his diet slowly If he does not tolerate diet, would do a SBFT to help open things up He has no signs of any bowel ischemia on exam We will continue to treat nonoperatively Subjective Patient feels well. Denies abdominal pain, nausea/vomiting. Tolerated NGT removal. Physical Exam Physical Exam: awake/alert Gastrointestinal (Abdomen): Inspection/Auscultation: abdomen not distended Percussion/Palpation: abdomen soft; abdomen nontender small amount of stool in ostomy bag Results & Data ([facility]) Vital Signs (Past 12 Hours) Vital Signs Temp Pulse Resp BP Pulse Ox 04/22/21 07:40 36.5 C 104 H 18 158/73 H 96 04/22/21 02:57 36.8 C 100 H 16 166/89 H 91 04/21/21 22:36 36.8 C 106 H 20 159/81 H 93 PG Care Time/CCT Total # of Minutes Spent Total Time Spent with Patient: Total time spent is greater than 50% in coordination of care (as documented) at patient's floor/unit and/or counseling patient: Coding Level of Care Code 88098 Subs Hosp Care Lvl 1 Diagnoses SBO (small bowel obstruction) K56.609
[2021-04-22] MEDS ORDERED: Nursing to Pharmacy Communication SCH (16:45)
[2021-04-22] MEDS ORDERED: METOPROLOL TARTRATE 1 MG/ML VIAL IV PRN (17:17)
--- NOTE | 2021-04-22 17:17 | Hospitalist Progress Note ---
Date of Service April 22, 2021 Assessment & Plan (1) SBO (small bowel obstruction): Plan: 71yo male History of previous colostomy for rectal carcinoma, persents with sbo, CT of the abdomen with a fluid-filled distended stomach and proximal to mid small bowel possibly reflecting a partial SBO or nonspecific gastroenteritis. Pt had ngt removed no significant stool in colostomy but clinically stable Patient is on chronic opioids which could be contributing - Surgery is going to make call on advancing diet -Pain control, anti-emetics -IVF with NSS @100mL/hr -General Surgery consultation, recommends medical management and surgery as a last resort (2) Acute upper gastrointestinal bleeding: Plan: Report of coffee ground emesis prior to arrival. Patient was hypotensive and tachycardic on arrival. -volume resuscitated, hgb 9.1 04/22/21 -Hold ASA and Plavix -Continue Protonix will make bolus bid (3) Hypoxia: Plan: Acute hypoxic respiratory failure present on admission. He is presently breathing comfortably on 3L NC with saturations of 93%. CTA with moderate multifocal airspace opacities within the lungs possibly PNA. Patient denies prodrome of fever, chills, sweats, fatigue, cough or SOB. He has received Covid-19 vaccine x 2 + booster and has had no known Covid-19 exposures. His Covid-19 NAAT test in the ER is NEGATIVE. Possibly secondary to aspiration -Continue supplemental O2 -elevated procalcitonin 31.2-> resume zosyn CT with multifocal airspace opacities in lungs -Aspiration precautions (4) CAD (coronary artery disease), [place] coronary artery: Plan: Patient with history of CAD s/p STEMI. He denies chest pain, SOB. Elevated troponin on arrival at 0.05 --> 0.24. EKG with some nonspecific findings. Suspect supply-demand mismatch in setting of hypotension, tachycardia and hypoxia. -Holding ASA and Plavix for now due to concern for GIB -Hold Atorvastatin for now restart Metoprolol given tachycardia - troponin 0.05->0.24->0.38->0.17 -Repeat EKG in AM without acute changes (5) Hypomagnesemia: Plan: -Replete (6) Hypophosphatemia: Plan: -Repeat (7) Hypocalcemia: Plan: Ionized calcium low at 0.98 -1gm calcium gluconate (8) LYUBOV (acute kidney injury): Plan: Improved after volume resusitation, now low sodium Patient is making urine -Avoid nephrotoxic agents -Renal dosing where needed -Monitor UOP, BUN, Cr, Electrolytes (9) High anion gap metabolic acidosis: Plan: this has closed (10) Hyponatremia: Plan: Nx=[id number]. Patient with chronic hyponatremia with Na ranging from 127 - 135 over the last 5 months. -Repeat chemistry confirms run isotonic saline (11) Contusion of face: Plan: Patient with bruising over left eye following a syncopal event. No focal deficits noted on exam. CT of the head and C-spine are negative for acute pathology. 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 Stable on medications -Monitor UOP -Continue Flomax 0.4mg po qHS (13) DM2 (diabetes mellitus, type 2): Plan: Chronic. Last [id number]=9.7 on 11/04/20. 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 Site appears clean. Minimal output in bag -Routine maintenance q shift -Monitor output (15) Hypertension: Plan: Blood pressure low on arrival -Hold Amlodipine, Lisinopril, Metoprolol -Monitor Plan: Ppx - SCDs to bilateral LE Code - Full Dispo - PCU Admission and Anticipated Discharge Date Admission Date: April 19, 2021 Subjective Patient feels well. Denies abdominal pain, nausea/vomiting. Tolerated NGT removal. radiology does not confirm resolution of sbo, Review of Systems Review of Systems: mild distress and fatigue no headache, no visual changes no speech or swallowing issues no chest pain, pressure or palpitations Mild shortness of breath, without cough or wheezes Mild abdominal pain, nausea or vomiting, ostomy left quadrant with stool in the bag small amount no dysuria, hematuria or frequency no focal joint pain or swelling no back pain, CVA tenderness or radicular pain no bruising, bleeding or rashes no focal signs of weakness or numbness or altered sensation no complaints of anxiety or depression.. Physical Exam Physical Exam: The patient appeared well nourished and normally developed. Vital signs as documented. Wearing some supplemental oxygen 6 L to maintain oxygen saturations Head exam is normocephalic atraumatic ng tube removed Neck is without JVD, thyromegaly, or carotid bruits. Lungs are clear to auscultation, no focal loss of breath sounds Cardiac exam, Rhythm is regular.. No murmurs, rubs or gallops. Abdominal exam reveals hypoactive bowel sounds soft mild tenderness in the right lower quadrant colostomy in the left sided abdomen recent ostomy bag change without stool in bag Extremities are nonedematous and both pedal pulses are present Neurologic exam is alert and oriented, no focal loss of strength or sensation Skin is without bruises or rashes Psychologically is without concerns for anxiety or depression.. Results & Data Results & Data ([facility]) Vital Signs (Past 12 Hours) Vital Signs Temp Pulse Resp BP Pulse Ox 04/22/21 16:00 98.2 F 109 H 18 158/78 H 96 04/22/21 12:00 97.7 F 112 H 16 161/72 H 97 04/22/21 07:40 97.7 F 104 H 18 158/73 H 96 PG Care Time/CCT Total # of Minutes Spent Total Time Spent with Patient: Total time spent is greater than 50% in coordination of care (as documented) at patient's floor/unit and/or counseling patient: Coding Level of Care Code 98822 Subseq Hosp Care Lvl 3 Diagnoses SBO (small bowel obstruction) K56.609 Acute upper gastrointestinal bleeding K92.2 Hypoxia R09.02 CAD (coronary artery disease), [place] coronary artery I25.10 Hypomagnesemia E83.42 Hypophosphatemia E83.39 Hypocalcemia E83.51 LYUBOV (acute kidney injury) N17.9 High anion gap metabolic acidosis E87.2 Hyponatremia E87.1 Contusion of face S00.83XA Encounter type: initial encounter BPH with obstruction/lower urinary tract symptoms N40.1; N13.8 DM2 (diabetes mellitus, type 2) E11.[address] Z93.3 Hypertension I10 Hypertension type: essential hypertension (1) Contusion of face Encounter type: initial encounter Qualified Code(s): S00.83XA - Contusion of other part of head, initial encounter (2) Hypertension Hypertension type: essential hypertension Qualified Code(s): I10 - Essential (primary) hypertension
[2021-04-22] MEDS: METOPROLOL TARTRATE 1 MG/ML VIAL IV SCH (17:38)
[2021-04-23] MEDS: METOPROLOL TARTRATE 1 MG/ML VIAL IV SCH ×3 (00:02→13:00)
[2021-04-23] MEDS: PANTOprazole 40 MG in DEXTROSE 5% 100 ML IV SCH ×3 (01:56→12:53)
[2021-04-23] MEDS: SODIUM CHLORIDE 0.9% 1000ML 1,000 ML IV SCH ×2 (01:57→12:00)
[2021-04-23] MEDS: PIPERACILLIN/TAZOBACTAM 3.375 GM in DEXTROSE 5% 100 ML IV SCH ×3 (03:57→20:45)
[2021-04-23 06:39] LABS: Hematocrit (blood only) 31.9 % (42-52); Mean Corpuscular Hemoglobin 29.3 pg (25-34); Mean Corpuscular Hgb Conc 34.5 g/dL (32-36); Mean Corpuscular Volume 84.8 fL (80-100); Mean Platelet Volume 9.3 fL (7.4-10.4); Platelet Count 162 K/uL (130-400); RDW Coefficient of Variation 12.7 % (11.5-14.5); RDW Standard Deviation 39.1 fL (36.4-46.3); Red Blood Count 3.76 M/uL (4.7-6.1)
[2021-04-23 06:59] LABS: BUN Creatinine Ratio 9.3 (10-20); Calcium 8.2 mg/dl (8.5-10.1); Creatinine Clr Calc Pharmacy 94.8 ml/min; Est GFR (African American) 106.2 ml/min; Est GFR (Non-African American) 91.6 ml/min; Potassium 3.6 mmol/L (3.5-5.1)
--- NOTE | 2021-04-23 07:59 | Surgery Progress Note ---
Date of Service April 23, 2021 Assessment & Plan (1) SBO (small bowel obstruction): Plan: Patient tolerated clear liquids yesterday Currently denies any abdominal complaints Does have stool in ostomy bag Will advance to full liquids. Still some slight distention...will continue to go slow with diet advancement [facility] surgery covering for the weekend Admission and Anticipated Discharge Date Admission Date: April 19, 2021 Supervising Physician Co-Signing Physician Notes I personally saw and evaluated the patient with Kitty España PA-C and agree with the assessment and plan. 71-year-old male with partial small bowel obstruction versus chronic constipation We will trial full liquids, continue to eat small amounts at a time If he does not tolerate diet, would do a SBFT to help open things up He has no signs of any bowel ischemia on exam We will continue to treat nonoperatively Subjective Patient feeling well. Denies abdominal pain, nausea/vomiting. Tolerated clear liquids. Physical Exam Physical Exam: awake Respiratory: normal respiratory effort Gastrointestinal (Abdomen): Inspection/Auscultation: + abdomen distended (slight) Percussion/Palpation: abdomen soft; abdomen nontender + ostomy with stool in bag Results & Data ([facility]) Vital Signs (Past 12 Hours) Vital Signs Temp Pulse Pulse Resp BP BP Pulse Ox 04/23/21 07:56 37.2 C 84 16 183/83 H 93 04/23/21 04:22 37.1 C 93 H 18 177/90 H 94 04/23/21 00:33 97 H 04/22/21 23:18 37.4 C 95 H 18 174/83 H 93 04/22/21 20:08 37.2 C 83 17 185/86 H 94 PG Care Time/CCT Total # of Minutes Spent Total Time Spent with Patient: Total time spent is greater than 50% in coordination of care (as documented) at patient's floor/unit and/or counseling patient: Coding Level of Care Code 48910 Subseq Hosp Care Lvl 1 Diagnoses SBO (small bowel obstruction) K56.609
[2021-04-23] MEDS: GABAPENTIN 600 MG TAB PO SCH ×4 (08:09→20:46)
[2021-04-23] MEDS: BACLOFEN 20 MG TAB PO SCH ×3 (08:10→20:47)
[2021-04-23] MEDS: INSULIN ASPART PER UNIT SC SCH ×4 (08:17→20:55)
--- NOTE | 2021-04-23 17:17 | Hospitalist Progress Note ---
Date of Service April 23, 2021 Assessment & Plan (1) SBO (small bowel obstruction): Plan: 71yo male History of previous colostomy for rectal carcinoma, persents with sbo, CT of the abdomen with a fluid-filled distended stomach and proximal to mid small bowel possibly reflecting a partial SBO or nonspecific gastroenteritis. Pt had ngt removed no significant stool in colostomy but clinically stable Patient is on chronic opioids which could be contributing - Surgery is going to make call on advancing diet tolerating full liquid diet on 04/23/2021 -Pain control, anti-emetics -IVF with NSS @100mL/hr -General Surgery consultation, recommends medical management and surgery as a last resort seems to be resolving small bowel obstruction clinically will advance diet see if stool production still occurs in his colostomy (2) Acute upper gastrointestinal bleeding: Plan: Report of coffee ground emesis prior to arrival. Patient was hypotensive and tachycardic on arrival. -volume resuscitated, hgb 9.1 04/22/21 -Hold ASA and Plavix -Continue Protonix will make bolus bid will transition oral Protonix on 04/23/2021 (3) Hypoxia: Plan: Acute hypoxic respiratory failure present on admission. He is presently breathing comfortably on 3L NC with saturations of 93%. CTA with moderate multifocal airspace opacities within the lungs possibly PNA. Patient denies prodrome of fever, chills, sweats, fatigue, cough or SOB. He has received Covid-19 vaccine x 2 + booster and has had no known Covid-19 exposures. His Covid-19 NAAT test in the ER is NEGATIVE. Possibly secondary to aspiration -Continue supplemental O2 -elevated procalcitonin 31.2-> resume zosyn CT with multifocal airspace opacities in lungs complete another day of Zosyn then likely transition to Augmentin -Aspiration precautions (4) CAD (coronary artery disease), [place] coronary artery: Plan: Patient with history of CAD s/p STEMI. He denies chest pain, SOB. Elevated troponin on arrival at 0.05 --> 0.24. EKG with some nonspecific findings. Suspect supply-demand mismatch in setting of hypotension, tachycardia and hypoxia. -Holding ASA and Plavix for now due to concern for GIB -Hold Atorvastatin for now restart Metoprolol given tachycardia - troponin 0.05->0.24->0.38->0.17 -Repeat EKG in AM without acute changes (5) Hypomagnesemia: Plan: -Replete (6) Hypophosphatemia: Plan: -Repeat (7) Hypocalcemia: Plan: Ionized calcium low at 0.98 -1gm calcium gluconate (8) LYUBOV (acute kidney injury): Plan: Improved after volume resusitation, now low sodium Patient is making urine -Avoid nephrotoxic agents -Renal dosing where needed -Monitor UOP, BUN, Cr, Electrolytes (9) High anion gap metabolic acidosis: Plan: this has closed (10) Hyponatremia: Plan: Or=066. Patient with chronic hyponatremia with Na ranging from 127 - 135 over the last 5 months. -Repeat chemistry confirms run isotonic saline (11) Contusion of face: Plan: Patient with bruising over left eye following a syncopal event. No focal deficits noted on exam. CT of the head and C-spine are negative for acute pathology. 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 Stable on medications -Monitor UOP -Continue Flomax 0.4mg po qHS (13) DM2 (diabetes mellitus, type 2): Plan: Chronic. Last [id number]=7.7 on 11/04/20. 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 Site appears clean. Minimal output in bag -Routine maintenance q shift -Monitor output (15) Hypertension: Plan: Blood pressure low on arrival -Hold Amlodipine, Lisinopril, Metoprolol -Monitor Plan: Ppx - SCDs to bilateral LE Code - Full Dispo - PCU Admission and Anticipated Discharge Date Admission Date: April 19, 2021 Subjective Patient feeling well. Denies abdominal pain, nausea/vomiting. Tolerated clear liquids. Does have liquid stool in his colostomy bag no discomfort to his abdomen no further nausea or vomiting Review of Systems Review of Systems: mild distress and fatigue no headache, no visual changes no speech or swallowing issues no chest pain, pressure or palpitations Mild shortness of breath, without cough or wheezes Mild abdominal pain, nausea or vomiting, ostomy left quadrant with stool in the bag now liquid stool no dysuria, hematuria or frequency no focal joint pain or swelling no back pain, CVA tenderness or radicular pain no bruising, bleeding or rashes no focal signs of weakness or numbness or altered sensation no complaints of anxiety or depression.. Physical Exam Physical Exam: The patient appeared well nourished and normally developed. Vital signs as documented. Wearing some supplemental oxygen 6 L to maintain oxygen saturations Head exam is normocephalic atraumatic ng tube removed Neck is without JVD, thyromegaly, or carotid bruits. Lungs are clear to auscultation, no focal loss of breath sounds Cardiac exam, Rhythm is regular.. No murmurs, rubs or gallops. Abdominal exam reveals hypoactive bowel sounds soft mild tenderness in the right lower quadrant colostomy in the left sided abdomen recent ostomy bag change with stool in bag Extremities are nonedematous and both pedal pulses are present Neurologic exam is alert and oriented, no focal loss of strength or sensation Skin is without bruises or rashes Psychologically is without concerns for anxiety or depression.. Results & Data Results & Data ([facility]) Vital Signs (Past 12 Hours) Vital Signs Temp Pulse Pulse Resp BP BP BP 04/23/21 16:05 98.2 F 67 19 151/69 H 04/23/21 13:00 81 162/70 H 04/23/21 11:56 98.4 F 81 17 162/70 H 04/23/21 08:00 101 H 04/23/21 07:56 99.0 F 84 16 183/83 H Pulse Ox 04/23/21 16:05 93 04/23/21 13:00 04/23/21 11:56 92 04/23/21 08:00 04/23/21 07:56 93 PG Care Time/CCT Total # of Minutes Spent Total Time Spent with Patient: Total time spent is greater than 50% in coordination of care (as documented) at patient's floor/unit and/or counseling patient: Coding Level of Care Code 91535 Subseq Hosp Care Lvl 3 Diagnoses SBO (small bowel obstruction) K56.609 Acute upper gastrointestinal bleeding K92.2 Hypoxia R09.02 CAD (coronary artery disease), [place] coronary artery I25.10 Hypomagnesemia E83.42 Hypophosphatemia E83.39 Hypocalcemia E83.51 LYUBOV (acute kidney injury) N17.9 High anion gap metabolic acidosis E87.2 Hyponatremia E87.1 Contusion of face S00.83XA Encounter type: initial encounter BPH with obstruction/lower urinary tract symptoms N40.1; N13.8 DM2 (diabetes mellitus, type 2) E11.[address] Z93.3 Hypertension I10 Hypertension type: essential hypertension (1) Contusion of face Encounter type: initial encounter Qualified Code(s): S00.83XA - Contusion of other part of head, initial encounter (2) Hypertension Hypertension type: essential hypertension Qualified Code(s): I10 - Essential (primary) hypertension
[2021-04-23] MEDS ORDERED: METOPROLOL TARTRATE 1 MG/ML VIAL IV PRN (18:28)
[2021-04-23] MEDS ORDERED: hydrALAZINE HCL 20 MG/ML VIAL IV PRN (18:28)
[2021-04-23] MEDS ORDERED: MAGNESIUM SULFATE / D5W 1 GM/100 ML BAG IV ONE (18:28)
[2021-04-23] MEDS: PANTOprazole 40 MG TAB PO SCH (20:46)
[2021-04-23] MEDS ORDERED: METOPROLOL TARTRATE 25 MG TAB PO SCH (21:00)
[2021-04-24] MEDS: SODIUM CHLORIDE 0.9% 1000ML 1,000 ML IV SCH ×3 (01:22→20:04)
[2021-04-24 06:43] LABS: Hematocrit (blood only) 30.3 % (42-52); Hemoglobin 10.5 g/dL (14.0-18.0); Mean Corpuscular Hemoglobin 29.1 pg (25-34); Mean Corpuscular Hgb Conc 34.7 g/dL (32-36); Mean Corpuscular Volume 83.9 fL (80-100); Mean Platelet Volume 9.4 fL (7.4-10.4); Platelet Count 185 K/uL (130-400); RDW Coefficient of Variation 12.7 % (11.5-14.5); RDW Standard Deviation 39.1 fL (36.4-46.3); Red Blood Count 3.61 M/uL (4.7-6.1); White Blood Count 12.02 K/uL (4.8-10.8)
[2021-04-24 06:53] LABS: BUN Creatinine Ratio 8.5 (10-20); Calcium 8.1 mg/dl (8.5-10.1); Creatinine Clr Calc Pharmacy 100.2 ml/min; Est GFR (African American) 108.6 ml/min; Est GFR (Non-African American) 93.7 ml/min; Magnesium 1.7 mg/dl (1.7-2.4); Potassium 3.6 mmol/L (3.5-5.1)
[2021-04-24] MEDS: INSULIN ASPART PER UNIT SC SCH ×4 (08:22→20:14)
[2021-04-24] MEDS: AMOXICILLIN/CLAVULANATE 875 MG TAB PO SCH ×2 (08:23→17:22)
[2021-04-24] MEDS: PANTOprazole 40 MG TAB PO SCH ×2 (08:23→20:09)
[2021-04-24] MEDS: BACLOFEN 20 MG TAB PO SCH ×3 (08:23→20:09)
[2021-04-24] MEDS: GABAPENTIN 600 MG TAB PO SCH ×4 (08:24→20:08)
[2021-04-24] MEDS: METOPROLOL TARTRATE 50 MG TAB PO SCH ×2 (09:00→20:09)
[2021-04-24] MEDS ORDERED: MAGNESIUM SULFATE / D5W 1 GM/100 ML BAG IV ONE (09:00)
--- NOTE | 2021-04-24 13:00 | Surgery Progress Note ---
Date of Service April 24, 2021 Assessment & Plan (1) SBO (small bowel obstruction): Plan: Patient tolerating diet, no further abdominal pain. He has had ostomy output. Denies nausea and vomiting. Further recommendations per medical team. No surgical indications at this time. We will sign off for now. Please call with questions or concerns. Admission and Anticipated Discharge Date Admission Date: April 19, 2021 Subjective He is feeling well today. He denies pain. He is having bowel movements. He is tolerating a diet. He denies any distention, nausea, vomiting. Physical Exam Constitutional: WD/WN, vitals as above Neck: trachea midline, no thyromegaly Gastrointestinal (Abdomen): Inspection/Auscultation: abdomen normal to inspection; abdomen not distended Percussion/Palpation: abdomen soft; abdomen nontender and no guarding Skin: no rashes, warm and dry Psychiatric: A+Ox3, euthymic affect Results & Data ([facility]) Vital Signs (Past 12 Hours) Vital Signs Temp Pulse Pulse Resp BP Pulse Ox 04/24/21 11:03 37.2 C 82 18 124/73 94 04/24/21 08:00 111 H 04/24/21 07:16 37.1 C 110 H 20 164/94 H 92 04/24/21 03:45 37.0 C 101 H 16 145/76 H 92 Laboratory Results 04/24/21 04/24/21 04/24/21 Range/Units 11:42 07:06 06:19 WBC (4.8-10.8) K/uL RBC (4.7-6.1) M/uL Hgb (14.0-18.0) g/dL Hct (42-52) % MCV (80-100) fL MCH (25-34) pg MCHC (32-36) g/dL RDW Std Deviation (36.4-46.3) fL RDW Coeff of Arturo (11.5-14.5) % Plt Count (130-400) K/uL MPV (7.4-10.4) fL Sodium 128 L (136-145) mmol/L Potassium 3.6 (3.5-5.1) mmol/L Chloride 97 L (98-107) mmol/L Carbon Dioxide 23 (21-32) mmol/L Anion Gap 8 (3-11) BUN 6 (6-23) mg/dl Creatinine 0.71 (0.6-1.4) mg/dl Est Cr Clr Drug Dosing 100.2 ml/min Est GFR ( Amer) 108.6 ml/min Est GFR (Non-Af Amer) 93.7 ml/min BUN/Creatinine Ratio 8.5 L (10-20) Glucose 129 H (70-99(Fasting)) mg/dl POC Glucose 206 H 123 H (70-99) mg/dl Calcium 8.1 L (8.5-10.1) mg/dl Magnesium 1.7 (1.7-2.4) mg/dl 04/24/21 04/23/21 04/23/21 Range/Units 06:19 20:47 16:45 WBC 12.02 H (4.8-10.8) K/uL RBC 3.61 L (4.7-6.1) M/uL Hgb 10.5 L (14.0-18.0) g/dL Hct 30.3 L (42-52) % MCV 83.9 (80-100) fL MCH 29.1 (25-34) pg MCHC 34.7 (32-36) g/dL RDW Std Deviation 39.1 (36.4-46.3) fL RDW Coeff of Arturo 12.7 (11.5-14.5) % Plt Count 185 (130-400) K/uL MPV 9.4 (7.4-10.4) fL Sodium (136-145) mmol/L Potassium (3.5-5.1) mmol/L Chloride (98-107) mmol/L Carbon Dioxide (21-32) mmol/L Anion Gap (3-11) BUN (6-23) mg/dl Creatinine (0.6-1.4) mg/dl Est Cr Clr Drug Dosing ml/min Est GFR ( Amer) ml/min Est GFR (Non-Af Amer) ml/min BUN/Creatinine Ratio (10-20) Glucose (70-99(Fasting)) mg/dl POC Glucose 200 H 107 H (70-99) mg/dl Calcium (8.5-10.1) mg/dl Magnesium (1.7-2.4) mg/dl
[2021-04-24] MEDS: MoRPHine SULFATE 2 MG/ML CARP IV PRN (13:46)
[2021-04-24] MEDS ORDERED: ACETAMINOPHEN 500 MG TAB PO PRN (13:52)
--- NOTE | 2021-04-24 17:13 | Hospitalist Progress Note ---
Date of Service April 24, 2021 Assessment & Plan (1) SBO (small bowel obstruction): Plan: 71yo male History of previous colostomy for rectal carcinoma, persents with sbo, CT of the abdomen with a fluid-filled distended stomach and proximal to mid small bowel possibly reflecting a partial SBO or nonspecific gastroenteritis. Pt had ngt removed no significant stool in colostomy but clinically stable Patient is on chronic opioids which could be contributing - Surgery has signed off -Pain control, anti-emetics Stop IV fluids Anxiety carb conscious diet if tolerates likely go home on 04/25/2021 consider have routine bowel regimen when he goes home -General Surgery consultation, recommends medical management and surgery as a last resort seems to be resolving small bowel obstruction clinically will advance diet see if stool production still occurs in his colostomy (2) Acute upper gastrointestinal bleeding: Plan: Report of coffee ground emesis prior to arrival. Patient was hypotensive and tachycardic on arrival. -volume resuscitated, hgb 9.1 04/22/21 -Hold ASA and Plavix -Continue Protonix will make bolus bid will transition oral Protonix on 04/23/2021 consider daily Protonix once a day at time of discharge (3) Hypoxia: Plan: Acute hypoxic respiratory failure present on admission. He is presently breathing comfortably on 3L NC with saturations of 93%. CTA with moderate multifocal airspace opacities within the lungs possibly PNA. Patient denies prodrome of fever, chills, sweats, fatigue, cough or SOB. He has received Covid-19 vaccine x 2 + booster and has had no known Covid-19 exposures. His Covid-19 NAAT test in the ER is NEGATIVE. Possibly secondary to aspiration -Continue supplemental O2 -elevated procalcitonin 31.2-> resume zosyn CT with multifocal airspace opacities in lungs complete another day of Zosyn then likely transition to Augmentin complete 7 days total antibiotic therapy -Aspiration precautions (4) CAD (coronary artery disease), [place] coronary artery: Plan: Patient with history of CAD s/p STEMI. He denies chest pain, SOB. Elevated troponin on arrival at 0.05 --> 0.24. EKG with some nonspecific findings. Suspect supply-demand mismatch in setting of hypotension, tachycardia and hypoxia. -Holding ASA and Plavix for now due to concern for GIB -Hold Atorvastatin for now restart Metoprolol given tachycardia - troponin 0.05->0.24->0.38->0.17 -Repeat EKG in AM without acute changes (5) Hypomagnesemia: Plan: -Replete (6) Hypophosphatemia: Plan: -Repeat (7) Hypocalcemia: Plan: Ionized calcium low at 0.98 -1gm calcium gluconate (8) LYUBOV (acute kidney injury): Plan: Improved after volume resuscitation, now low sodium patient has a history of the same -Avoid nephrotoxic agents -Renal dosing where needed -Monitor UOP, BUN, Cr, Electrolytes (9) High anion gap metabolic acidosis: Plan: this has closed (10) Hyponatremia: Plan: Kg=281. Patient with chronic hyponatremia with Na ranging from 127 - 135 over the last 5 months. -Repeat chemistry confirms run isotonic saline (11) Contusion of face: Plan: Patient with bruising over left eye following a syncopal event. No focal deficits noted on exam. CT of the head and C-spine are negative for acute pathology. 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 Stable on medications -Monitor UOP -Continue Flomax 0.4mg po qHS (13) DM2 (diabetes mellitus, type 2): Plan: Chronic. Last QbgX5N=6.7 on 11/04/20. 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 Site appears clean. Minimal output in bag -Routine maintenance q shift -Monitor output (15) Hypertension: Plan: Blood pressure low on arrival -Hold Amlodipine, Lisinopril, Metoprolol -Monitor Plan: Ppx - SCDs to bilateral LE Code - Full Dispo - PCU Admission and Anticipated Discharge Date Admission Date: April 19, 2021 Subjective pt feels well and wants to have diet advanced did have some SVT overnight and with magnesium. Review of Systems Review of Systems: Mild distress and fatigue no headache, no visual changes no speech or swallowing issues no chest pain, pressure or palpitations SVT without sensation of palpitations no shortness of breath, cough or wheezes no abdominal pain, nausea or vomiting, ostomy with good output very little discomfort no dysuria, hematuria or frequency no focal joint pain or swelling no back pain, CVA tenderness or radicular pain no bruising, bleeding or rashes no focal signs of weakness or numbness or altered sensation no complaints of anxiety or depression.. Physical Exam Physical Exam: The patient appeared well nourished and normally developed. Vital signs as documented. Head exam is normocephalic atraumatic Neck is without JVD, thyromegaly, or carotid bruits. Lungs are clear to auscultation, no focal loss of breath sounds Cardiac exam, Rhythm is regular.. No murmurs, rubs or gallops. Abdominal exam reveals normal bowel sounds, soft non tender, ostomy functioning well Extremities are nonedematous and both pedal pulses are present Neurologic exam is alert and oriented, no focal loss of strength or sensation Skin is without bruises or rashes Psychologically is without concerns for anxiety or depression.. Results & Data Results & Data ([facility]) Vital Signs (Past 12 Hours) Vital Signs Temp Pulse Pulse Resp BP BP Pulse Ox 04/24/21 15:35 98.2 F 75 18 154/91 H 93 04/24/21 11:03 99.0 F 82 18 124/73 94 04/24/21 08:00 111 H 04/24/21 07:16 98.8 F 110 H 20 164/94 H 92 PG Care Time/CCT Total # of Minutes Spent Total Time Spent with Patient: Total time spent is greater than 50% in coordination of care (as documented) at patient's floor/unit and/or counseling patient: Coding Level of Care Code 05432 Subseq Hosp Care Lvl 2 Diagnoses SBO (small bowel obstruction) K56.609 Acute upper gastrointestinal bleeding K92.2 Hypoxia R09.02 CAD (coronary artery disease), [place] coronary artery I25.10 Hypomagnesemia E83.42 Hypophosphatemia E83.39 Hypocalcemia E83.51 LYUBOV (acute kidney injury) N17.9 High anion gap metabolic acidosis E87.2 Hyponatremia E87.1 Contusion of face S00.83XA Encounter type: initial encounter BPH with obstruction/lower urinary tract symptoms N40.1; N13.8 DM2 (diabetes mellitus, type 2) E11.[address] Z93.3 Hypertension I10 Hypertension type: essential hypertension (1) Contusion of face Encounter type: initial encounter Qualified Code(s): S00.83XA - Contusion of other part of head, initial encounter (2) Hypertension Hypertension type: essential hypertension Qualified Code(s): I10 - Essential (primary) hypertension
[2021-04-25] MEDS: SODIUM CHLORIDE 0.9% 1000ML 1,000 ML IV SCH (05:11)
[2021-04-25 07:12] LABS: Hematocrit (blood only) 29.1 % (42-52); Hemoglobin 10.2 g/dL (14.0-18.0); Mean Corpuscular Hgb Conc 35.1 g/dL (32-36); Mean Corpuscular Volume 85.6 fL (80-100); Mean Platelet Volume 9.7 fL (7.4-10.4); Platelet Count 210 K/uL (130-400); RDW Coefficient of Variation 13.1 % (11.5-14.5); RDW Standard Deviation 40.9 fL (36.4-46.3); White Blood Count 9.28 K/uL (4.8-10.8)
[2021-04-25 07:36] LABS: BUN Creatinine Ratio 9.5 (10-20); Creatinine Clr Calc Pharmacy 96.1 ml/min; Est GFR (African American) 106.8 ml/min; Est GFR (Non-African American) 92.2 ml/min; Magnesium 1.8 mg/dl (1.7-2.4); Potassium 3.5 mmol/L (3.5-5.1)
[2021-04-25] MEDS: INSULIN ASPART PER UNIT SC SCH ×2 (08:31→12:27)
[2021-04-25] MEDS: METOPROLOL TARTRATE 50 MG TAB PO SCH (08:32)
[2021-04-25] MEDS: GABAPENTIN 600 MG TAB PO SCH ×2 (08:32→13:20)
[2021-04-25] MEDS: AMOXICILLIN/CLAVULANATE 875 MG TAB PO SCH (08:32)
[2021-04-25] MEDS: BACLOFEN 20 MG TAB PO SCH ×2 (08:32→13:20)
[2021-04-25] MEDS: PANTOprazole 40 MG TAB PO SCH (08:33)
--- NOTE | 2021-04-25 16:21 | Discharge Summary ---
Date of Service April 25, 2021 Admission HPI Per Admitting Provider Jere Borrego is a 71yo male with multiple medical comorbidities to include CAD s/p STEMI, DM, HTN, GERD, colostomy in place. Patient woke this morning and states that he wasn't feeling well. He was complaining of diffuse abdominal discomfort. His family states that he was acting somewhat confused, wasn't able to clearly articulate what his complaints were. Later in the day he developed worsening abdominal pain as well as nausea with several episodes of vomiting. His family was putting him in the car to bring him to the ER when he had a syncopal event. 911 was called and patient was brought in by ambulance. He had reported dark emesis en route, possible coffee ground material. Upon arrival to the ER patient hypotensive at 90/60, tachycardic with HR 130's and tachypneic. He had a right femoral TLC placed in the ER and was provided with 3L NSS with improvement in blood pressure. A NGT was placed with over 1L of dark, bilious return. Patient resting comfortably during my encounter. Arousable and able to answer questions appropriately. He reports improvement in his abdominal pain and distention. Still with some discomfort. He denies fever, chills, cough, SOB, chest pain, dysuria. He reports normal output from his ostomy. Patient has received Covid-19 vaccine x 2 + Booster His Covid-19 test in the ER is NEGATIVE ER Course: NSS x 3L, Pepcid 20mg IV, Protonix 80mg then gtt, Zofran 4mg IV, Zosyn 4.5gm Principal Diagnosis SBO Upper GIB Discharge Exam General: A&Ox3. NAD. Cooperative. HEENT: Atraumatic, normocephalic. Pulm: CTAB A&P. -wheezes, -rales, -rhonchi. Symmetrical chest rise. No increased work of breathing. No respiratory distress. Cardiac: RRR, -mrg. Radial pulses intact and symmetrical. Abdominal: Ostomy bag in place draining brown fluid. Abdomen mild softly distended BS present. 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 Discharge Data Allergies Allergy/AdvReac Type Severity Reaction Status Date / Time rosuvastatin AdvReac Severe Myalgia Verified 04/19/21 18:31 Consultations 04/19/21 18:21 Consult General Surgery Stat 04/19/21 19:31 ED Decision to Admit Stat Ordered Studies 04/19/21 17:45 CT abd pelvis IV con only Stat CT angio chest PE protocol Stat CT cervical spine wo con Stat CT head/brain wo con Stat Hospital Course (1) SBO (small bowel obstruction): 71yo male History of previous colostomy for rectal carcinoma, persented with sbo, CT of the abdomen with a fluid-filled distended stomach and proximal to mid small bowel possibly reflecting a partial SBO or nonspecific gastroenteritis. To Do As Outpatient: 1. Routine followup with PCP, GI, and cardiology 2. Continue 10 days of PPI BID, then decrease to daily for 4-6 weeks 3. Miralax PRN for BMs 4. Complete Augmentin course for CAP, complete 05/01/20 5. Avoid all NSAIDs 6. Re-eval of eye contusion 7. CBC and BMP followup SBO - Initially with NGT placement. - CT: Fluid-filled distended stomach and proximal to mid small bowel. Decompressed distal small bowel however no well-defined transition point. The findings could reflect a partial small bowel obstruction or a nonspecific gastroenteritis. - Surgery consulted, recommended medial management -Pain control, anti-emetics - Progressed well, tolerating normal diet day of admission with normal ostomy output (2) Acute upper gastrointestinal bleeding: Report of coffee ground emesis prior to arrival. Patient was hypotensive and tachycardic on arrival. -volume resuscitated, hgb 9.1 04/22/21 -Hold ASA and Plavix during admission. Resumed on Dc as should be on for 1 year due to stents - Recheck outpt hgb for stability. Stable day of discharge with no ongoing bleeding. - Protonix PPI BID x10 days, then daily x 4-6 weeks - GI followup (3) Hypoxia: Acute hypoxic respiratory failure present on admission. He is presently breathing comfortably on 3L NC with saturations of 93%. CTA with moderate multifocal airspace opacities within the lungs possibly PNA. Patient denied prodrome of fever, chills, sweats, fatigue, cough or SOB. -He has received Covid-19 vaccine x 2 + booster and has had no known Covid-19 exposures. His Covid-19 NAAT test in the ER is NEGATIVE. -Possibly secondary to aspiration -Continue supplemental O2 -elevated procalcitonin 31.2-> recieved empiric zosyn CT with multifocal airspace opacities in lungs complete another day of Zosyn then transitioned to Augmentin complete 7 days total antibiotic therapy -Aspiration precautions - No O2 requirement at discharge (4) CAD (coronary artery disease), [place] coronary artery: Patient with history of CAD s/p STEMI. He denies chest pain, SOB. [place] troponin on arrival at 0.05 --> 0.24. EKG with some nonspecific findings. Suspect supply-demand mismatch in setting of hypotension, tachycardia and hypoxia. -Holding ASA and Plavix for during admit due to concern for GIB, resumed on dc due to cardiac risk -Hold Atorvastatin for now restart Metoprolol given tachycardia - troponin 0.05->0.24->0.38->0.17 -Repeat EKG in AM without acute changes (5) Hypomagnesemia: -Replete (6) Hypophosphatemia: -Repeat (7) Hypocalcemia: Ionized calcium low at 0.98 -1gm calcium gluconate (8) LYUBOV (acute kidney injury): Improved after volume resuscitation, now low sodium patient has a history of the same -Avoid nephrotoxic agents -Renal dosing where needed -Monitor UOP, BUN, Cr, Electrolytes (9) High anion gap metabolic acidosis: this has closed (10) Hyponatremia: Gg=454. Patient with chronic hyponatremia with Na ranging from 127 - 135 over the last 5 months. (11) Contusion of face: Patient with bruising over left eye following a syncopal event. No focal deficits noted on exam. CT of the head and C-spine are negative for acute pathology. He is on DAPT with ASA and Plavix -Neuro checks with GCS q 4 hours -Held ASA and Plavix as above (12) BPH with obstruction/lower urinary tract symptoms: Chronic. Stable on medications -Monitor UOP -Continue Flomax 0.4mg po qHS (13) DM2 (diabetes mellitus, type 2): Chronic. Last AkuQ1H=6.7 on 11/04/20. -Hold Metformin 500mg po BID -ISS, goal blood sugar 100 - 180 (14) Colostomy in place: Chronic. Site appears clean. Minimal output in bag -Routine maintenance q shift -Monitor output (15) Hypertension: Blood pressure low on arrival -Held Amlodipine, Lisinopril, Metoprolol, resumed on dc -Monitor Ppx - SCDs to bilateral LE during admission no signs of DVT Total Time Total Time Spent Total Time Spent (In Minutes): Total time spend day of discharge 30 minutes including direct patient care, documentation, and review of labs/images. Discharge Plan Discharge Items Patient Disposition: Home - Self-Care Reason For Visit: BOWEL OBSTRUCTION, ?GIB Discharge Diagnosis: SBO Activity: Resume your previous activity Non-emergency contact: Primary Care Provider Call non-emergency contact if: you have any medication questions, your symptoms worsen and your pain is worsening Follow-up/Referrals: Loy Browning III, CRNP [Primary Care Provider] - 05/03/21 4:00 pm (Please follow up with AMIRAH Singh on Monday05/03/21 at 4:00 pm. Please arrive to the office at 3:45 pm for your appointment. If you are unable to keep this appointment, please call the office to reschedu krissy at [phone].) Diet: Heart Healthy Addtl Attending Provider Instructions: You were seen in the hospital for acute upper gastrointenstinal bleeding and a small bowel obstruction. You clinically improved and were tolerating a normal diet at time of discharge. You were having normal ostomy output at time of discharge. Your hemoglobin (blood levels) were stable at time of discharge. You have had medications prescribed as noted below. You have been prescribed an anti-acid medication, protonix. Pleas take protonix 40mg by mouth TWICE DAILY for 10 days, then protonix 40mg ONCE DAILY for a total of 4-6 weeks. Your PCP will discuss this medication with you further your followup appointment. You make take miralax up to 2 capfuls twice daily as needed to help with bowel movements. You have been prescribed antibiotics for pneumonia. Please take Augmentin 875- 125mg twice daily until 05/01/20. You were tolerating this medication well during your admission. Your aspirin and plaavix have been resumed. These can contribute to bleeding risk, but are improtant to protect your heart and should be continued until October 2021. If you experience any recurrent bleeding including bloody/black bowel movements please stop taking these medications and contact your PCP immediately, or call 911 to return to the ER for re-evaluation. Please DO NOT take any NSAIDs at this time including mobic, ibuprofil, advil, aleive, and/or motrin. Please note that opioid use can contribute to constipation and bowel obstruction. If you are not having any pain, it is OK to skip or delay a dose of oxycodone. Please discuss your pain control further with your physicians at followup. A followup appointment is being scheduled for you with your PCP. You should be seen seen within 2 weeks. You should have repeat blood work to check your blood counts and sodium level drawn by your PCP. You should receive a call to confirm this appointment. If you do not receive a call within 48 hours to confirm this appointment, or need to change this appointment, please call the provider's office. If you develop any new or worsening symptoms including fever, chills, sweats, chest pain, chest pressure, difficulty breathing, uncontrolled nausea/vomiting, rash, wheezing, passing out or nearly passing out, bleeding, black/bloody bowel movements, or other new or concerning symptoms please call your primary care physician, or call 911 for re-evaluation in the emergency department if you are very concerned. Pending Studies at Discharge: No Stand-Alone Forms: My [facility] [email or web address], Smoking Cessation Medications and DC Order Prescriptions: New amoxicillin-pot clavulanate 875-125 mg tablet 1 tab PO BID 6 Days Qty: 12 RF: 0 pantoprazole [Protonix] 40 mg tablet,delayed release (DR/EC) See Rx Instructions .ROUTE .COMPLEX Qty: 48 RF: 0 Continued acetaminophen 500 mg capsule 500 mg PO Q8H PRN (Reason: Pain) RF: 0 clopidogrel 75 mg tablet 75 mg PO QAM Qty: 90 RF: 3 atorvastatin 40 mg tablet 40 mg PO QAM Qty: 90 RF: 3 metformin 500 mg tablet 500 mg PO BID Qty: 180 RF: 1 lisinopril [Zestril] 5 mg tablet 5 mg PO QAM Qty: 90 RF: 1 metoprolol tartrate 25 mg tablet 25 mg PO BID Qty: 180 RF: 1 gabapentin 600 mg tablet 600 mg PO QID Qty: 360 RF: 0 baclofen 20 mg tablet 20 mg PO TID Qty: 270 RF: 0 oxycodone 5 mg tablet 5 mg PO Q4H PRN (Reason: Pain) Qty: 540 RF: 0 oxymorphone 30 mg tablet extended release 12 hr 30 mg PO BID Qty: 180 RF: 0 meloxicam 15 mg tablet 15 mg PO DAILY Qty: 30 RF: 0 tamsulosin 0.4 mg capsule 0.4 mg PO HS Qty: 90 RF: 1 naloxone 4 mg/actuation spray,non-aerosol 1 spray intranasal Q3M PRN (Reason: OVER SEDATION) RF: 0 aspirin 81 mg Tablet,Delayed Release (Dr/Ec) 81 mg PO QAM Qty: 30 RF: 0 multivitamin Tablet 1 tab PO DAILY RF: 0 amlodipine 10 mg tablet 10 mg PO QAM RF: 0 loratadine [Claritin] 10 mg Tablet 10 mg PO DAILY PRN (Reason: Congestion) RF: 0 Discharge Orders: Discharge Order (Routine); Ordered 04/25/21 Ordered By: Arsalan Hinkle Admission Data Admit Date/Time: 04/19/21 20:23 Attending Provider: Arsalan Hinkle Admit Provider: Bernarda Varela Primary Care Provider: Loy Browning III Other Providers: Neptali Hughes ; Bernarda Varela Other Interventions: Discharge Summary Assessment (RN) Last Done: 04/25/21 13:29 Coding Level of Care Code D/C DAY MANAGEMENT >30 MINS Diagnoses SBO (small bowel obstruction) K56.609 Acute upper gastrointestinal bleeding K92.2 Hypoxia R09.02 CAD (coronary artery disease), [place] coronary artery I25.10 Hypomagnesemia E83.42 Hypophosphatemia E83.39 Hypocalcemia E83.51 LYUBOV (acute kidney injury) N17.9 High anion gap metabolic acidosis E87.2 Hyponatremia E87.1 Contusion of face S00.83XA Encounter type: initial encounter BPH with obstruction/lower urinary tract symptoms N40.1; N13.8 DM2 (diabetes mellitus, type 2) E11.[address] Z93.3 Hypertension I10 Hypertension type: essential hypertension
== END 2021-04-25 15:25 | disposition home or self-care (01) | DRG 388 ==
LOC: ED 17:23 → 1E 20:23 → SUATTDRO 20:23 → 1E 22:55 → 2S 04-20 20:48
DX: E83.39 Other disorders of phosphorus metabolism; K56.600 Partial intestinal obstruction, unspecified as to cause; Z79.02 Long term (current) use of antithrombotics/antiplatelets; E87.1 Hypo-osmolality and hyponatremia; Z88.8 Allergy status to other drugs, medicaments and biological substances; J96.01 Acute respiratory failure with hypoxia; N40.1 Benign prostatic hyperplasia with lower urinary tract symptoms; K92.2 Gastrointestinal hemorrhage, unspecified; Z79.84 Long term (current) use of oral hypoglycemic drugs; E11.9 Type 2 diabetes mellitus without complications; K21.9 Gastro-esophageal reflux disease without esophagitis; Z93.3 Colostomy status; I25.2 Old myocardial infarction; Z87.891 Personal history of nicotine dependence; Y92.89 Other specified places as the place of occurrence of the external cause; E87.2 Acidosis; S00.83XA Contusion of other part of head, initial encounter; J69.0 Pneumonitis due to inhalation of food and vomit; W18.00XA Striking against unspecified object with subsequent fall, initial encounter; Z85.048 Personal history of other malignant neoplasm of rectum, rectosigmoid junction, and anus; I25.10 Atherosclerotic heart disease of native coronary artery without angina pectoris; E83.42 Hypomagnesemia; I10 Essential (primary) hypertension; E83.51 Hypocalcemia; N17.9 Acute kidney failure, unspecified

== ENCOUNTER 2021-04-26 10:22 | Observation (INO) ==
[2021-04-26 11:45] LABS: Hematocrit (blood only) 32.3 % (42-52); Hemoglobin 11.1 g/dL (14.0-18.0); Mean Corpuscular Hemoglobin 29.8 pg (25-34); Mean Corpuscular Hgb Conc 34.4 g/dL (32-36); Mean Corpuscular Volume 86.6 fL (80-100); Mean Platelet Volume 9.8 fL (7.4-10.4); Platelet Count 299 K/uL (130-400); RDW Coefficient of Variation 13.1 % (11.5-14.5); RDW Standard Deviation 41.9 fL (36.4-46.3); Red Blood Count 3.73 M/uL (4.7-6.1); White Blood Count 9.81 K/uL (4.8-10.8)
[2021-04-26 12:09] LABS: ALC (manual) 0.88 K/uL (1.2-3.4); ANC (manual) 7.16 K/uL (1.4-6.5); Alanine Aminotransferase 30 U/L (7-52); Albumin Globulin Ratio 1.1 (0.9-2); Albumin Level 3.5 gm/dl (3.4-5.0); Alkaline Phosphatase 47 U/L (34-104); Anion Gap 10 (3-11); Aspartate Aminotransferase 28 U/L (13-39); BUN Creatinine Ratio 10.5 (10-20); Bilirubin,Total 0.5 mg/dl (0.2-1.0); Blood Urea Nitrogen 11 mg/dl (6-23); Calcium 8.5 mg/dl (8.5-10.1); Carbon Dioxide 22 mmol/L (21-32); Chloride 98 mmol/L (98-107); Eosinophils # (manual) 0.18 K/uL (0-0.5); Eosinophils % (manual) 1.8 %; Est GFR (African American) 81.8 ml/min; Est GFR (Non-African American) 70.6 ml/min; Globulin 3.2 gm/dl (2.5-4.0); Glucose 161 mg/dl (70-99(Fasting)); Lipase 120 U/L (11-82); Lymphocytes # (manual) 0.88 K/uL (1.2-3.4); Metamyelocytes # (manual) 0.18 K/uL (0-0); Metamyelocytes % (manual) 1.8 %; Monocytes # (manual) 1.06 K/uL (0.11-0.59); Monocytes % (manual) 10.8 %; Myelocytes # (manual) 0.35 K/uL (0-0); Myelocytes % (manual) 3.6 %; Neutrophils # (manual) 7.16 K/uL (1.4-6.5); Potassium 3.4 mmol/L (3.5-5.1); Sodium 130 mmol/L (136-145); Total Protein 6.7 gm/dl (6.0-8.3)
[2021-04-26] MEDS ORDERED: SODIUM CHLORIDE 0.9% 1000ML 500 ML IV ONE (12:26)
[2021-04-26] MEDS ORDERED: ONDANSETRON INJ 2 MG/ML 2 ML VIAL IV STA (12:26)
[2021-04-26] MEDS ORDERED: HYDROmorphone INJ 0.5 MG/0.5 ML SYR IV STA (12:26)
--- NOTE | 2021-04-26 12:30 | Emergency Department Note ---
Impression & Plan Acute upper gastrointestinal bleeding, Acute upper abdominal pain ED Provider Note Name: RED VILLARREAL Age: 71 Sex: M Arrives Via: Walk-In Informant: Patient, , daughter ED Provider: Luis Kingsley MD Chief Complaint: Abdominal pain and black stools Impression: As per impressions above Medical Decision Makin-year-old gentleman with extensive past medical history who was in the hospital over the last week for an episode of small bowel obstruction. He was discharged yesterday and initially doing well however as evening went on he developed black/bloody stools into his ostomy. Patient with increasing abdominal pain throughout the night including worsening of the black and bloody stools. Notes some distention of his abdomen increasing pain. On examination he is uncomfortable and pain medications were ordered. Unfortunately during is high-volume time in the ER due to the COVID-19 pandemic patient was initially evaluated in triage and was on board with the fact that we would initiate things there while trying to get him to bed. He was sent to CT which reveals no acute evidence of small bowel obstruction or other acute surgical issue. He was given IV Protonix and some pain medications once we are able to get him a bed. He was comfortable with plan for hospitalization. I did discuss this with GI who will attempt to scope him tomorrow. Hospitalist were also made aware. Patient is stable and does not appear septic or in extremis at time of hospitalization. Prior Medical Record and Triage/Nursing Notes reviewed by Me Additional history obtained from chart and hospitalist Differentials:Diverticulosis, AVM, coagulopathy, colitis, inflammatory bowel disease, malignancy, [place] tear, esophagitis, peptic ulcer disease, variceal bleed, gastritis, epistaxis, fissure, hemorrhoids, as well as other pathologies. Vital Signs: reviewed and remarkable for no significant abnormalities Interventions: Protonix IV fentanyl IV normal saline infusion Labs:Reviewed and remarkable for mild improvement in hemoglobin from previous studies Imaging:CT abdomen pelvis without any acute findings as per radiologist Consults:Dr. Webb of gastroenterology, Dr. Hinkle of hospitalist medicine Plan: Disposition:Hospitalization. Condition: Good History of Present Illness:72-year-old gentleman arrives for evaluation of abdominal pain. Patient with recent bowel blockage and GI bleed. He was discha rged yesterday noting her start to feel better. On getting home he started noticing black/bloody stools. He has an ostomy and every time he cleaned out his ostomy he noted this stool was black/bloody. Overnight he has developed worsening abdominal pain and distention. This morning he notes his abdomen is distended and he had black bloody stools in the ostomy again this morning. Since then he has not had much bowel outs. He is starting to feel nauseous. He denies any fevers, chills, syncope, chest pain, shortness of breath, back pain, headache, neck pain, runny nose, leg swelling, rashes, bruising, urinary symptoms or other symptoms. He denies any falls, trauma, injuries. Patient not es that he is on aspirin 81 mg daily without any other blood thinner use. ROS: See above HPI for pertinent positives & negatives. A total of 10 systems reviewed and were otherwise negative. Past Medical History:See Below Past Surgical History:See Below Family History:See Below Social History:See Below Home Medications:See Below Allergies:rosuvastatin Vitals:Blood Pressure: 121/73, Pulse 89, RR 18, T 36.8C, O2 96% on RA Physical Exam: GENERAL: Patient is tired/uncomfortable appearing and in moderate distress. EYES: No scleral icterus, unremarkable pupils. ENT: Mucous membranes moist, no nasal congestion. NECK: No masses appreciated, nomeningismus, trachea is midline. RESPIRATORY: No dyspnea. Clear to auscultation and equal bilaterally. No wheeze, no rhonchi. CARDIOVASCULAR: Regular rate and rhythm.No murmurs, rubs, gallops appreciated. GASTROINTESTINAL: Mild distended abdomen. Tenderness to palpation throughout the right upper quadrant. Hyperactive bowel sounds throughout the right abdomen. Ostomy mid left lower abdomen without any stool in ostomy. No peritonitis on examination. BACK: No midline tenderness, no CVA tenderness EXTREMITIES: Normal motion all extremities, no cyanosis, no edema. NEUROLOGIC: Alert and oriented, no acute motor or sensory deficits, no focal weakness, cranial nerves grossly intact. SKIN: No rash, no jaundice, no diaphoresis. PSYCH: Appropriate GCS: 15 ED Course: Times/Reassessments: Patient much more comfortable after getting into bed and stable. They are agreeable to hospitalization and on board with plan for likely endoscopy in the morning. Luis Kingsley MD Past Med/Surg History Medical History LYUBOV (acute kidney injury) Anxiety disorder BPH with obstruction/lower urinary tract symptoms CAD (coronary artery disease), [place] coronary artery Chronic back pain DM2 (diabetes mellitus, type 2) Hypertension Hyponatremia Obstructive sleep apnea Osteoarthritis Peripheral neuropathy ST elevation (STEMI) myocardial infarction Statin myopathy Surgical History H/O inguinal hernia repair H/O resection of rectum History of rectal surgery Previous back surgery S/P cervical spinal fusion S/P tonsillectomy and adenoidectomy Family History Father Cardiovascular disease Cardiac disorder Prostate cancer Mother Dementia Diabetes Other Hypertension No significant family history Denies family history of Ovarian cancer Myocardial infarction Breast cancer Colorectal cancer Social History Smoking Status: Former smoker Age Started Using Tobacco: 17; Age Quit Using Tobacco: 24; packs per day: 1; Years Smoked: 7; Cigarettes Per Day: 20; Number of Years Since Quit: 46; Second Hand Exposure: No; Hx Alcohol Use: No Hx Substance Use: No Preferred Language: Nauruan Communication Ability: Effective Visual Impairment: No Limitations Hearing Ability: Normal Filling Carrier Required: No Beliefs That Will Affect Care: None marital status: Current Living Situation: Spouse current occupational status: retired How many Children do You have: 4 Feels Safe at Home: Yes Childhood Exposure to Second-Hand Smoke: No caffeine: Yes during the past year weight has: remained stable Dental Care, Regularly: No Physical Activity Frequency: Daily Seatbelt Use: always Sunscreen Use: No Assistive Devices: Glasses and Walker Allergies Allergies Allergy/AdvReac Type Severity Reaction Status Date / Time rosuvastatin AdvReac Severe Myalgia Verified 04/26/21 14:27 Home Meds Home Medications Medication Instructions Recorded Confirmed acetaminophen 500 mg capsule 500 mg PO Q8H PRN cap 10/12/20 04/26/21 naloxone 4 mg/actuation nasal spray 1 spray INTRANASAL Q3M PRN 12/19/20 04/26/21 amlodipine 10 mg tablet 10 mg PO QAM 04/19/21 04/26/21 loratadine 10 mg tablet (Claritin) 10 mg PO DAILY PRN 04/19/21 04/26/21 multivitamin 1 tab PO DAILY 04/19/21 04/26/21 Previous Rx's Medication Instructions Recorded aspirin 81 mg tablet,delayed 81 mg PO QAM #30 tab 11/05/20 release atorvastatin 40 mg tablet 40 mg PO QAM #90 tab 11/30/20 clopidogrel 75 mg tablet 75 mg PO QAM #90 tab 11/30/20 metformin 500 mg tablet 500 mg PO BID #180 tab 12/08/20 lisinopril 5 mg tablet (Zestril) 5 mg PO QAM #90 tab 12/16/20 metoprolol tartrate 25 mg tablet 25 mg PO BID #180 tab 12/16/20 baclofen 20 mg tablet 20 mg PO TID #270 tab 01/13/21 gabapentin 600 mg tablet 600 mg PO QID #360 tab 01/13/21 oxycodone 5 mg tablet 5 mg PO Q4H PRN #540 tab 01/15/21 oxymorphone 30 mg tablet,extended 30 mg PO BID #180 tab 01/15/21 release,12 hr meloxicam 15 mg tablet 15 mg PO DAILY #30 tab 03/10/21 tamsulosin 0.4 mg capsule 0.4 mg PO HS #90 cap 04/06/21 amoxicillin 875 mg-potassium 1 tab PO BID 6 Days #12 tab 04/25/21 clavulanate 125 mg tablet pantoprazole 40 mg tablet,delayed See Rx Instructions .ROUTE 04/25/21 release (Protonix) .COMPLEX #48 tab Results & Data (ED) Vital Signs Vital Signs - 24 hr 04/26/21 10:42 04/26/21 15:00 04/26/21 15:30 Temperature 36.8 C Temperature Source Temporal Artery Scan Pulse Rate 89 75 81 Respiratory Rate 18 14 20 Blood Pressure 121/73 145/89 H 139/77 Blood Pressure Mean 89 107 97 Pulse Oximetry 96 96 94 Oxygen Delivery Method Room Air Room Air Room Air Sepsis Recent Fever Within 48 Hours No Sepsis New/Unexplained Change in Mental Status No Sepsis Action Taken by Nursing No Action Required 04/26/21 16:00 Temperature Temperature Source Pulse Rate 78 Respiratory Rate 19 Blood Pressure 152/84 H Blood Pressure Mean 106 Pulse Oximetry Oxygen Delivery Method Sepsis Recent Fever Within 48 Hours Sepsis New/Unexplained Change in Mental Status Sepsis Action Taken by Nursing Laboratory Data Result diagrams: 04/27/21 04:35 04/27/21 04:35 Lab Results 04/26/21 04/26/21 04/26/21 Range/Units 11:34 11:34 15:30 WBC 9.81 (4.8-10.8) K/uL RBC 3.73 L (4.7-6.1) M/uL Hgb 11.1 L (14.0-18.0) g/dL Hct 32.3 L (42-52) % MCV 86.6 (80-100) fL MCH 29.8 (25-34) pg MCHC 34.4 (32-36) g/dL RDW Std Deviation 41.9 (36.4-46.3) fL RDW Coeff of Arturo 13.1 (11.5-14.5) % Plt Count 299 (130-400) K/uL MPV 9.8 (7.4-10.4) fL Neutrophils % (Manual) 73.0 % Lymphocytes % (Manual) 9.0 % Monocytes % (Manual) 10.8 % Eosinophils % (Manual) 1.8 % Metamyelocytes % (Man) 1.8 % Myelocytes % (Man) 3.6 % Neutrophils # (Manual) 7.16 H (1.4-6.5) K/uL Total Absolute Neuts 7.16 H (1.4-6.5) K/uL Lymphocytes # (Manual) 0.88 L (1.2-3.4) K/uL Total Abs Lymphocytes 0.88 L (1.2-3.4) K/uL Monocytes # (Manual) 1.06 H (0.11-0.59) K/uL Eosinophils # (Manual) 0.18 (0-0.5) K/uL Metamyelocytes # (Man) 0.18 H (0-0) K/uL Myelocytes # (Manual) 0.35 H (0-0) K/uL Sodium 130 L (136-145) mmol/L Potassium 3.4 L (3.5-5.1) mmol/L Chloride 98 (98-107) mmol/L Carbon Dioxide 22 (21-32) mmol/L Anion Gap 10 (3-11) BUN 11 (6-23) mg/dl Creatinine 1.05 D (0.6-1.4) mg/dl Est Cr Clr Drug Dosing Not Reportable Est GFR ( Amer) 81.8 ml/min Est GFR (Non-Af Amer) 70.6 ml/min BUN/Creatinine Ratio 10.5 (10-20) Glucose 161 H (70-99(Fasting)) mg/dl Calcium 8.5 (8.5-10.1) mg/dl Total Bilirubin 0.5 (0.2-1.0) mg/dl AST 28 (13-39) U/L ALT 30 (7-52) U/L Alkaline Phosphatase 47 (34-104) U/L Total Protein 6.7 (6.0-8.3) gm/dl Albumin 3.5 (3.4-5.0) gm/dl Globulin 3.2 (2.5-4.0) gm/dl Albumin/Globulin Ratio 1.1 (0.9-2) Lipase 120 H (11-82) U/L SARS-CoV-2, RNA, NAAT NEGATIVE (NEGATIVE) Administered Medications Amlodipine Besylate (Amlodipine Besylate 5 Mg Tab) 10 mg PO QAM [facility] Stop: 05/27/21 08:59 Last Admin: 04/27/21 08:39 Dose: 10 mg Documented by: [id number] Amoxicillin/Clavulanate Potassium (Amoxicillin/Clavulanate 875 Mg Tab) 1 tab PO BID [facility] Stop: 05/03/21 20:59 Last Admin: 04/27/21 08:39 Dose: 1 tab Documented by: [id number] Admin: 04/26/21 20:34 Dose: 1 tab Documented by: [id number] Atorvastatin Calcium (Atorvastatin 40 Mg Tab) 40 mg PO QAM [facility] Stop: 05/27/21 08:59 Last Admin: 04/27/21 08:39 Dose: 40 mg Documented by: [id number] Baclofen (Baclofen 20 Mg Tab) 20 mg PO TID [facility] Stop: 05/26/21 20:59 Last Admin: 04/27/21 08:39 Dose: 20 mg Documented by: [id number] Admin: 04/26/21 20:34 Dose: 20 mg Documented by: [id number] Gabapentin (Gabapentin 600 Mg Tab) 600 mg PO QID [facility] Stop: 05/26/21 17:05 Last Admin: 04/27/21 08:39 Dose: 600 mg Documented by: [id number] Admin: 04/26/21 20:35 Dose: 600 mg Documented by: [id number] Admin: 04/26/21 19:53 Dose: Not Given Documented by: [id number] Lactated Ringer's (Lr) 1,000 mls @ 100 mls/hr IV .Q10H JEY Stop: 05/26/21 17:05 Last Admin: 04/27/21 06:04 Dose: 100 mls/hr Documented by: [id number] Infusion: 04/27/21 05:53 Dose: 100 mls/hr Documented by: [id number] Admin: 04/26/21 19:53 Dose: 100 mls/hr Documented by: [id number] Pantoprazole Sodium 40 mg/ (Dextrose) 100 mls @ 20 mls/hr IV Q5H JEY Stop: 05/27/21 07:59 Last Admin: 04/27/21 08:28 Dose: 8 mg/hr, 20 mls/hr Documented by: [id number] Meloxicam (Meloxicam 7.5 Mg Tab) 15 mg PO DAILY [facility] Stop: 05/27/21 08:59 Last Admin: 04/27/21 08:39 Dose: 15 mg Documented by: [id number] Metoprolol Tartrate (Metoprolol Tartrate 25 Mg Tab) 25 mg PO BID [facility] Stop: 05/26/21 20:59 Last Admin: 04/27/21 08:39 Dose: 25 mg Documented by: [id number] Admin: 04/26/21 20:35 Dose: 25 mg Documented by: [id number] Multivitamins (Multivitamin Tab) 1 tab PO DAILY JE[facility] Stop: 05/27/21 08:59 Last Admin: 04/27/21 08:39 Dose: 1 tab Documented by: [id number] Ondansetron HCl (Ondansetron Inj 2 Mg/Ml 2 Ml Vial) 4 mg IV Q4H PRN PRN Reason: Nausea Stop: 05/27/21 07:25 Last Admin: 04/27/21 07:36 Dose: 4 mg Documented by: [id number] Oxycodone HCl (Oxycodone Hcl Ir 5 Mg Tab (Immediate Release)) 5 mg PO Q4H PRN PRN Reason: Pain Stop: 05/10/21 17:05 Last Admin: 04/26/21 23:56 Dose: 5 mg Documented by: [id number] Tamsulosin HCl (Tamsulosin Hcl 0.4 Mg Cap) 0.4 mg PO HS JEY Stop: 05/26/21 20:59 Last Admin: 04/26/21 20:35 Dose: 0.4 mg Documented by: [id number] Discontinued Medications Hydromorphone HCl (Hydromorphone Inj 0.5 Mg/0.5 Ml Syr) 0.5 mg IV NOW STA Stop: 04/26/21 12:27 Last Admin: 04/26/21 14:27 Dose: 0.5 mg Documented by: [id number] Sodium Chloride (Nss 1000ml) 500 mls @ 999 mls/hr IV .Q31M ONE Stop: 04/26/21 12:56 Last Infusion: 04/26/21 14:20 Dose: 0 mls/hr Documented by: [id number] Admin: 04/26/21 13:18 Dose: 999 mls/hr Documented by: [id number] Pantoprazole Sodium 80 mg/ (Dextrose) 100 mls @ 400 mls/hr IV ONE STA Stop: 04/26/21 15:00 Last Infusion: 04/26/21 16:18 Dose: 0 mls/hr Documented by: [id number] Admin: 04/26/21 15:22 Dose: 400 mls/hr Documented by: [id number] Potassium Chloride (K John / Wtr) 10 meq in 100 mls @ 100 mls/hr IV Q1H STA; Protocol Stop: 04/26/21 16:32 Last Infusion: 04/26/21 20:26 Dose: 0 mls/hr Documented by: [id number] Admin: 04/26/21 17:05 Dose: 100 mls/hr Documented by: [id number] Pantoprazole Sodium 40 mg/ (Syringe) 10 mls @ 5 mls/min IV ONE ONE Stop: 04/27/21 07:46 Last Admin: 04/27/21 08:28 Dose: 5 mls/min Documented by: [id number] Ioversol (Optiray 320 100ml) 94 ml IV ONCE ONE Stop: 04/26/21 13:11 Last Admin: 04/26/21 13:11 Dose: 94 ml Documented by: [id number] Ondansetron HCl (Ondansetron Inj 2 Mg/Ml 2 Ml Vial) 4 mg IV NOW STA Stop: 04/26/21 12:27 Last Admin: 04/26/21 13:18 Dose: 4 mg Documented by: [id number] Polyethylene Glycol/Electrolytes (Lavage Solution 4000ml) 16 dose PO ONE ONE Stop: 04/26/21 18:00 Last Admin: 04/26/21 20:36 Dose: 16 dose Documented by: [id number] Potassium Chloride (Potassium Chloride 10 Meq / 100ml Wtr) Confirm Administered Dose 10 meq IV .STK-MED ONE Stop: 04/26/21 18:35 Last Admin: 04/26/21 19:49 Dose: 10 meq Documented by: [id number] Discharge Plan Visit Data Chief Complaint: GI Assessment Stated Complaint: BLACK STOOLS ED Provider: Luis Kingsley Discharge Problem: Acute upper gastrointestinal bleeding, Acute upper abdominal pain
[2021-04-26] MEDS ORDERED: OPTIRAY 320 100ml IV ONE (13:10)
--- NOTE | 2021-04-26 13:55 | CT Scan Report ---
CT abd pelvis IV con only CLINICAL HISTORY: diffuse abdominal distension, bloody stools TECHNIQUE: Helical axial images of the abdomen and pelvis were obtained and displayed. Automated dose lowering techniques and/or adjustment according to patient size were utilized for this exam. This e xam was performed with intravenous contrast. COMPARISON: Comparison is made to CT abdomen pelvis 04/19/2021 FINDINGS: Lower chest: Bilateral atelectasis is seen. There is groundglass opacity in the lingula. Liver: Unremarkable. No focal lesions are seen. Gallbladder and biliary tree: Cholelithiasis is seen without evidence of cholecystitis. No intra- or extrahepatic biliary ductal dilation. Pancreas: Unremarkable, no focal lesions. Spleen: Unremarkable. Adrenals: Unremarkable. Kidneys and ureters: A left renal cyst is seen. Bladder: Unremarkable. Reproductive organs: Unremarkable. Bowel: Patient is status post colostomy. Lymph nodes Retroperitoneal: Unremarkable. Mesenteric: Unremarkable. Pelvic: Unremarkable. Peritoneum: Normal. Vessels: Unremarkable. Abdominal wall: There is a parastomal hernia about the colostomy site. Bones: Posterior spinal fixation hardware is seen. Anterior and lateral sacroiliac screws are seen. IMPRESSION: 1. No acute abnormalities. Patient is status post colectomy. 2. Atelectasis and groundglass opacities are seen, somewhat less prominent than the prior exam. This may represent an element of improving pneumonia. ACT 112: Negative or not required by law. Electronically signed by: Gary Tran M.D. 04/26/2021 1:54 PM
[2021-04-26] MEDS ORDERED: PANTOprazole 80 MG in DEXTROSE 5% 100 ML IV STA (14:46)
--- NOTE | 2021-04-26 15:16 | History & Physical Report ---
Date of Service April 26, 2021 Assessment & Plan (1) Acute upper gastrointestinal bleeding: Plan: 71yo male History of previous colostomy for rectal carcinoma, recent SBO, and recent concern for upper GI bleed who presents with dark output from his ostomy concerning for upper GI bleed Black output into ostomy bag, concern for upper GI bleed Discussed with GI, n.p.o. karla, will have GoLYTELY prep, EGD/colo through ostomy tomorrow Aspirin/Plavix temporarily held Hemoglobin stable in ER, will trend Continue Protonix PPI IV Hemoglobin 11.1, up from discharge of 10.2 Trend hemoglobin q8h Hyponatremia 130, chronic Potassium 3.4, repleted (2) CAD (coronary artery disease), [place] coronary artery: Plan: CAD - Continue atorvastatin - ASA/Plaavix held - Continue MTP - No chest pain on admission, no shortness of breath, no difficulty breathing Admitting EKG: Sinus rhythm with PACs, no territorial ST changes (3) Hypomagnesemia: Plan: - Mg 1.8 (4) BPH with obstruction/lower urinary tract symptoms: Plan: Continue Flomax nightly Stable (5) DM2 (diabetes mellitus, type 2): Plan: Goal BSG [id number] Home metformin 500 mg p.o. twice daily held SSIAspart correction factor 45, ratio 22 Last hemoglobin [facility] well-controlled 10/31 (6) Hypertension: Plan: Continue amlodipine Hold lisinopril pending potential sedation for procedure Continue metoprolol Plan: DVT prophylaxis: SCDs CODE STATUS: Full code, confirmed with patient Disposition: Medical telemetry History of Present Illness Chief Complaint: Black ostomy output Primary Care Provider: Loy Browning III, AMIRAH Jere is a 71-year-old male with history of small bowel obstruction, upper GI bleed, coronary artery disease, coronary stenting, DM 2, tobacco use, anxiety, and hypertension who presents with return of dark output from his ostomy bag following resumption of his antiplatelet agents. Was recently admitted and discharged for SBO with concern for upper GI bleed which normalized and had a stable hemoglobin. "Poop is black as the she of spades again. "Endorses normal volume of output, but which has turned black after being normal in color on his previous discharge. No vomiting. NO emesis. Some epigastric tenderness. SOme increased fatigue in the last day. No lightheadedness dizzyness, syncope, presyncope. Had some scrambled eggs this morning, chili last night but has a slightly decreased appetite. No chest pain, no chest pressure, no shortness of breath, no difficulty breathing.Has not noticed any other symptoms. He is seen at bedside with his present.Last took his DAPT and lisinopril this morning. Medical History: Reviewed Medications: Reviewed Surgical History: Reviewed Allergies: Reviewed Social History: No EtoH, uses chew. Quit smoking 40 years ago, had smoked for 20 years ~0.5ppd at that time. Code Status:Surrogate decision maker would Tara Slade . Full Code. Allergies Allergy/AdvReac Type Severity Reaction Status Date / Time rosuvastatin AdvReac Severe Myalgia Verified 04/26/21 14:27 Home Medications Medication Instructions Recorded Confirmed Type acetaminophen 500 mg capsule 500 mg PO Q8H PRN cap 10/12/20 04/26/21 History aspirin 81 mg tablet,delayed 81 mg PO QAM #30 tab 11/05/20 04/26/21 Rx release atorvastatin 40 mg tablet 40 mg PO QAM #90 tab 11/30/20 04/26/21 Rx clopidogrel 75 mg tablet 75 mg PO QAM #90 tab 11/30/20 04/26/21 Rx metformin 500 mg tablet 500 mg PO BID #180 tab 12/08/20 04/26/21 Rx lisinopril 5 mg tablet (Zestril) 5 mg PO QAM #90 tab 12/16/20 04/26/21 Rx metoprolol tartrate 25 mg tablet 25 mg PO BID #180 tab 12/16/20 04/26/21 Rx naloxone 4 mg/actuation nasal spray 1 spray INTRANASAL Q3M PRN 12/19/20 04/26/21 History baclofen 20 mg tablet 20 mg PO TID #270 tab 01/13/21 04/26/21 Rx gabapentin 600 mg tablet 600 mg PO QID #360 tab 01/13/21 04/26/21 Rx oxycodone 5 mg tablet 5 mg PO Q4H PRN #540 tab 01/15/21 04/26/21 Rx oxymorphone 30 mg tablet,extended 30 mg PO BID #180 tab 01/15/21 04/26/21 Rx release,12 hr meloxicam 15 mg tablet 15 mg PO DAILY #30 tab 12/29/21 02/14/22 Rx tamsulosin 0.4 mg capsule 0.4 mg PO HS #90 cap 04/06/21 04/26/21 Rx amlodipine 10 mg tablet 10 mg PO QAM 04/19/21 04/26/21 History loratadine 10 mg tablet (Claritin) 10 mg PO DAILY PRN 04/19/21 04/26/21 History multivitamin 1 tab PO DAILY 04/19/21 04/26/21 History amoxicillin 875 mg-potassium 1 tab PO BID 6 Days #12 tab 04/25/21 04/26/21 Rx clavulanate 125 mg tablet pantoprazole 40 mg tablet,delayed See Rx Instructions .ROUTE 04/25/21 04/26/21 Rx release (Protonix) .COMPLEX #48 tab Past Med/Surg History Medical History LYUBOV (acute kidney injury) Anxiety disorder BPH with obstruction/lower urinary tract symptoms CAD (coronary artery disease), [place] coronary artery Chronic back pain DM2 (diabetes mellitus, type 2) Hypertension Hyponatremia Obstructive sleep apnea Osteoarthritis Peripheral neuropathy ST elevation (STEMI) myocardial infarction Statin myopathy Surgical History H/O inguinal hernia repair H/O resection of rectum History of rectal surgery Previous back surgery S/P cervical spinal fusion S/P tonsillectomy and adenoidectomy Family History Father Cardiovascular disease Cardiac disorder Prostate cancer Mother Dementia Diabetes Other Hypertension No significant family history Denies family history of Ovarian cancer Myocardial infarction Breast cancer Colorectal cancer Social History Smoking Status: Former smoker Age Started Using Tobacco: 17; Age Quit Using Tobacco: 24; packs per day: 1; Years Smoked: 7; Cigarettes Per Day: 20; Number of Years Since Quit: 46; Second Hand Exposure: No; Hx Alcohol Use: No Hx Substance Use: No Preferred Language: Arabic Communication Ability: Effective Visual Impairment: No Limitations Hearing Ability: Normal Cocoa Bean Cleaner Required: No Beliefs That Will Affect Care: None marital status: Current Living Situation: Spouse current occupational status: retired How many Children do You have: 4 Feels Safe at Home: Yes Childhood Exposure to Second-Hand Smoke: No caffeine: Yes during the past year weight has: remained stable Dental Care, Regularly: No Physical Activity Frequency: Daily Seatbelt Use: always Sunscreen Use: No Assistive Devices: Glasses and Walker Review of Systems Review of Systems: All systems reviewed & are unremarkable except as noted in Subjective Physical Exam Physical Exam: General: A&Ox3. NAD. Cooperative. HEENT: Trace healing contusion overlying left eye, otherwise atraumatic, normocephalic. Pupils equal and reactive to light. Visual acuity and hearing intact. Pulm: CTAB A&P. -wheezes, -rales, -rhonchi. Symmetrical chest rise. No increase in work of breathing. No respiratory distress. Cardiac: RRR, -mrg. Radial pulses intact and symmetrical. Abdominal: Mild epigastric tenderness, no rebound tenderness, abdomen soft, nondistended. Ostomy bag in place, recently changed. No surrounding erythem a/tenderness. Extremities: Warm, dry. Moves all extremities equally. Sensation intact in hands and feet, volcanology teacher strength intact, ankle dorsiflexion/plantarflexion intact Results & Data Results & Data ([facility]) Vital Signs (Past 12 Hours) Vital Signs Temp Pulse Resp BP Pulse Ox 04/26/21 10:42 36.8 C 89 18 121/73 96 PG Care Time/CCT Total # of Minutes Spent Total Time Spent with Patient: Total time spent is greater than 50% in coordination of care (as documented) at patient's floor/unit and/or counseling patient: Coding Level of Care Code 86840 Initial Inpt Care Lvl 2 Diagnoses Acute upper gastrointestinal bleeding K92.2 CAD (coronary artery disease), [place] coronary artery I25.10 Hypomagnesemia E83.42 BPH with obstruction/lower urinary tract symptoms N40.1; N13.8 DM2 (diabetes mellitus, type 2) E11.9 Hypertension I10 Hypertension type: essential hypertension (1) Hypertension Hypertension type: essential hypertension Qualified Code(s): I10 - Essential (primary) hypertension
[2021-04-26] MEDS ORDERED: POTASSIUM CHLORIDE / WTR 10 MEQ/100 ML PLCT IV STA (15:33)
[2021-04-26] MEDS ORDERED: ACETAMINOPHEN 500 MG TAB PO PRN (17:32)
[2021-04-26] MEDS ORDERED: LAVAGE SOLUTION 4000ML PO ONE (17:59)
[2021-04-26] MEDS ORDERED: POTASSIUM CHLORIDE 10 MEQ / 100ML WTR IV ONE (18:34)
[2021-04-26] MEDS: GABAPENTIN 600 MG TAB PO SCH ×2 (19:53→20:35)
[2021-04-26] MEDS: LACTATED RINGER'S 1,000 ML IV SCH (19:53)
[2021-04-26] MEDS: BACLOFEN 20 MG TAB PO SCH (20:34)
[2021-04-26] MEDS: AMOXICILLIN/CLAVULANATE 875 MG TAB PO SCH (20:34)
[2021-04-26] MEDS: METOPROLOL TARTRATE 25 MG TAB PO SCH (20:35)
[2021-04-26] MEDS: TAMSULOSIN HCL 0.4 MG CAP PO SCH (20:35)
--- NOTE | 2021-04-26 23:01 | Electrocardiogram Report ---
Test Reason : Blood Pressure : / mmHG Vent. Rate : 084 BPM Atrial Rate : 084 BPM P-R Int : 150 ms QRS Dur : 094 ms QT Int : 378 ms P-R-T Axes : 077 026 023 degrees QTc Int : 446 ms Sinus rhythm with Premature atrial complexes Inferior-posterior infarct (cited on or before 20-APR-2020) Abnormal ECG When compared with ECG of 19-APR-2021 17:27, Vent. rate has decreased BY 66 BPM Confirmed by Danny Cordero ([id number]) on 04/26/2021 11:00:53 PM Referred By: Confirmed By:Danny Cordero
[2021-04-26] MEDS: oxyCODONE HCL IR 5 MG TAB (IMMEDIATE RELEASE) PO PRN (23:56)
[2021-04-27 05:07] LABS: Hematocrit (blood only) 26.7 % (42-52); Hemoglobin 9.1 g/dL (14.0-18.0); Mean Corpuscular Hemoglobin 28.9 pg (25-34); Mean Corpuscular Hgb Conc 34.1 g/dL (32-36); Mean Corpuscular Volume 84.8 fL (80-100); Mean Platelet Volume 9.5 fL (7.4-10.4); Platelet Count 242 K/uL (130-400); RDW Standard Deviation 40.1 fL (36.4-46.3); Red Blood Count 3.15 M/uL (4.7-6.1); White Blood Count 5.72 K/uL (4.8-10.8)
[2021-04-27 05:31] LABS: Basophils # (auto) 0.01 K/uL (0-0.2); Basophils % (auto) 0.2 %; Eosinophils # (auto) 0.12 K/uL (0-0.5); Eosinophils % (auto) 2.1 %; Immature Granulocytes # (auto) 0.45 K/uL (0.00-0.02); Immature Granulocytes % (auto) 7.9 %; Lymphocytes # (auto) 0.71 K/uL (1.2-3.4); Lymphocytes % (auto) 12.4 %; Monocytes # (auto) 0.54 K/uL (0.11-0.59); Monocytes % (auto) 9.4 %; Neutrophils # (auto) 3.89 K/uL (1.4-6.5)
[2021-04-27 05:42] LABS: Albumin Globulin Ratio 1.1 (0.9-2); BUN Creatinine Ratio 11.3 (10-20); Bilirubin,Total 0.5 mg/dl (0.2-1.0); Creatinine Clr Calc Pharmacy 100.2 ml/min; Est GFR (African American) 108.6 ml/min; Est GFR (Non-African American) 93.7 ml/min; Globulin 2.7 gm/dl (2.5-4.0); Potassium 3.8 mmol/L (3.5-5.1); Total Protein 5.7 gm/dl (6.0-8.3)
[2021-04-27] MEDS: LACTATED RINGER'S 1,000 ML IV SCH ×2 (06:04→16:58)
[2021-04-27] MEDS ORDERED: ONDANSETRON INJ 2 MG/ML 2 ML VIAL IV PRN (07:26)
[2021-04-27] MEDS ORDERED: PANTOprazole 40 MG in SYRINGE 0 ML IV ONE (07:45)
[2021-04-27] MEDS: PANTOprazole 40 MG in DEXTROSE 5% 100 ML IV SCH ×3 (08:28→19:19)
[2021-04-27] MEDS: AMOXICILLIN/CLAVULANATE 875 MG TAB PO SCH ×2 (08:39→21:02)
[2021-04-27] MEDS: amLODIPine BESYLATE 5 MG TAB PO SCH (08:39)
[2021-04-27] MEDS: GABAPENTIN 600 MG TAB PO SCH ×4 (08:39→21:03)
[2021-04-27] MEDS: ATORVASTATIN 40 MG TAB PO SCH (08:39)
[2021-04-27] MEDS: MELOXICAM 7.5 MG TAB PO SCH (08:39)
[2021-04-27] MEDS: BACLOFEN 20 MG TAB PO SCH ×3 (08:39→21:02)
[2021-04-27] MEDS: MULTIVITAMIN TAB PO SCH (08:39)
[2021-04-27] MEDS: METOPROLOL TARTRATE 25 MG TAB PO SCH ×2 (08:39→21:03)
--- NOTE | 2021-04-27 09:03 | Gastrointestinal Consultation ---
Date of Consultation April 27, 2021 Assessment & Plan (1) Acute upper gastrointestinal bleeding: (2) Acute blood loss anemia: (3) Colostomy in place: Pt is a 71 y.o. male with a history of rectal CA s/p resection with permanent colostomy as well as CAD s/p stenting on aspirin and plavix as well as NSAID therapy for OA with melena and acute blood loss anemia, concerning for UGIB. * NPO for now. * EGD and colonoscopy with Dr. Webb today for further evaluation. * Continue Pantoprazole ggt at 8 mg/hr. * Transfuse if hgb <8. * Further recommendations will be made pending results of testing. Thank you for allowing us to participating in the care of this patient. If you have any questions or concerns, please do not hesitate to contact us. Supervising Physician Co-Signing Physician Notes I personally evaluated the patient and agree with the findings as documented by AMIRAH Rizo Exam: Constitutional: WD/WN, vitals as above General: EOM intact bilaterally Neck: normal visual inspection Respiratory: normal respiratory effort, lungs clear to auscultation Cardiovascular: RRR, no murmur, no edema Gastrointestinal: abdomennormal to inspection, nondistended, soft, nontender, no hepatosplenomegaly Musculoskeletal: no cyanosis, head normal to inspection Skin: no rashes, warm and dry Neurologic: moves all extremities Psychiatric: A and O x3, euthymic affect History of Present Illness Reason for Consultation: UGIB Requesting Physician: Dr. Kingsley Attending Physician: Say Steele MD History of Present Illness Jere Borrego is a very pleasant 71 y.o. male with a history of HTN and rectal cancer requiring ostomy ~16 yrs ago as well as CAD s/p stenting in September of 2020. He has remained on Plavix and aspirin since that time. He is also prescribed Meloxicam for OA. He was recently admitted to the hospital for concern of GIB and SBO. He was managed by the hospitalists and general surgery team at that time. He returned to the ER yesterday with reports of abdominal pain and dark stool in his ostomy. He also reports he has recently sustained a fall. Currently, he denies any abdominal pain, n/v, syncope or dizziness. No chest pain, palpitations, shortness of breath or cough. He was given a GoLytely bowel preparation last evening which he has completed approximately one half of the preparation. Despite this, he is passing clear output through his ostomy. No bright red blood noted. H&H yesterday was noted to be 11.1/32.3 and has since dropped to 9.1/26.7 this morning. He is NPO and has been placed on a PPI ggt at 8 mg/hr. Allergies Allergy/AdvReac Type Severity Reaction Status Date / Time rosuvastatin AdvReac Severe Myalgia Verified 04/26/21 14:27 Home Medications Medication Instructions Recorded Confirmed Type acetaminophen 500 mg capsule 500 mg PO Q8H PRN cap 10/12/20 04/26/21 History aspirin 81 mg tablet,delayed 81 mg PO QAM #30 tab 11/05/20 04/26/21 Rx release atorvastatin 40 mg tablet 40 mg PO QAM #90 tab 11/30/20 04/26/21 Rx clopidogrel 75 mg tablet 75 mg PO QAM #90 tab 11/30/20 04/26/21 Rx metformin 500 mg tablet 500 mg PO BID #180 tab 12/08/20 04/26/21 Rx lisinopril 5 mg tablet (Zestril) 5 mg PO QAM #90 tab 12/16/20 04/26/21 Rx metoprolol tartrate 25 mg tablet 25 mg PO BID #180 tab 12/16/20 04/26/21 Rx naloxone 4 mg/actuation nasal spray 1 spray INTRANASAL Q3M PRN 12/19/20 04/26/21 History baclofen 20 mg tablet 20 mg PO TID #270 tab 01/13/21 04/26/21 Rx gabapentin 600 mg tablet 600 mg PO QID #360 tab 01/13/21 04/26/21 Rx oxycodone 5 mg tablet 5 mg PO Q4H PRN #540 tab 01/15/21 04/26/21 Rx oxymorphone 30 mg tablet,extended 30 mg PO BID #180 tab 01/15/21 04/26/21 Rx release,12 hr meloxicam 15 mg tablet 15 mg PO DAILY #30 tab 03/10/21 04/26/21 Rx tamsulosin 0.4 mg capsule 0.4 mg PO HS #90 cap 04/06/21 04/26/21 Rx amlodipine 10 mg tablet 10 mg PO QAM 04/19/21 04/26/21 History loratadine 10 mg tablet (Claritin) 10 mg PO DAILY PRN 04/19/21 04/26/21 History multivitamin 1 tab PO DAILY 04/19/21 04/26/21 History amoxicillin 875 mg-potassium 1 tab PO BID 6 Days #12 tab 04/25/21 04/26/21 Rx clavulanate 125 mg tablet pantoprazole 40 mg tablet,delayed See Rx Instructions .ROUTE 04/25/21 04/26/21 Rx release (Protonix) .COMPLEX #48 tab Patient History Medical History LYUBOV (acute kidney injury) Anxiety disorder BPH with obstruction/lower urinary tract symptoms CAD (coronary artery disease), [place] coronary artery Chronic back pain DM2 (diabetes mellitus, type 2) Hypertension Hyponatremia Obstructive sleep apnea Osteoarthritis Peripheral neuropathy ST elevation (STEMI) myocardial infarction Statin myopathy Surgical History H/O inguinal hernia repair H/O resection of rectum History of rectal surgery Previous back surgery S/P cervical spinal fusion S/P tonsillectomy and adenoidectomy Family History Father Cardiovascular disease Cardiac disorder Prostate cancer Mother Dementia Diabetes Other Hypertension No significant family history Denies family history of Ovarian cancer Myocardial infarction Breast cancer Colorectal cancer Social History Smoking Status: Former smoker Age Started Using Tobacco: 17; Age Quit Using Tobacco: 24; packs per day: 1; Years Smoked: 7; Cigarettes Per Day: 20; Number of Years Since Quit: 46; Second Hand Exposure: No; Hx Alcohol Use: No Hx Substance Use: No Preferred Language: Lithuanian Communication Ability: Effective Visual Impairment: No Limitations Hearing Ability: Normal Lathe Winder Required: No Beliefs That Will Affect Care: None marital status: Current Living Situation: Spouse current occupational status: retired How many Children do You have: 4 Feels Safe at Home: Yes Childhood Exposure to Second-Hand Smoke: No caffeine: Yes during the past year weight has: remained stable Dental Care, Regularly: No Physical Activity Frequency: Daily Seatbelt Use: always Sunscreen Use: No Assistive Devices: Cane and Walker Review of Systems Constitutional: as per Subjective / HPI and + fatigue; no fever and no chills Respiratory: as per Subjective / HPI Cardiovascular: as per Subjective / HPI Gastrointestinal: as per Subjective / HPI Physical Exam Constitutional: WD/WN, vitals as above Eyes: + anicteric sclerae and EOM intact bilaterally ecchymosis left orbit Neck: normal visual inspection Respiratory: normal respiratory effort, lungs clear to auscultation Cardiovascular: Rate/Rhythm: regular rate and regular rhythm Heart Sounds: no murmur Gastrointestinal (Abdomen): Inspection/Auscultation: normal bowel sounds and + abdominal surgical scar (ostomy LLQ) Percussion/Palpation: abdomen soft; abdomen nontender Musculoskeletal: Extremities: extremities normal to inspection Skin: no rashes, warm and dry Psychiatric: A+Ox3, euthymic affect Results & Data ([facility]) Vital Signs (Past 12 Hours) Vital Signs Pulse Pulse Resp BP BP Pulse Ox Pulse Ox 04/27/21 07:00 97 H 20 151/84 H 98 98 04/27/21 05:00 77 16 152/71 H 95 04/27/21 01:28 65 16 162/76 H 96 04/26/21 22:00 62 21 150/87 H 96 04/26/21 21:30 64 19 156/82 H 95 Diagnostic Findings Laboratory Results WBC 5.72 K/uL (4.8-10.8) 04/27/21 04:35 RBC 3.15 M/uL (4.7-6.1) L 04/27/21 04:35 Hgb 9.1 g/dL (14.0-18.0) L 04/27/21 04:35 Hct 26.7 % (42-52) L 04/27/21 04:35 MCV 84.8 fL (80-100) 04/27/21 04:35 MCH 28.9 pg (25-34) 04/27/21 04:35 MCHC 34.1 g/dL (32-36) 04/27/21 04:35 RDW Std Deviation 40.1 fL (36.4-46.3) 04/27/21 04:35 RDW Coeff of Arturo 13.0 % (11.5-14.5) 04/27/21 04:35 Plt Count 242 K/uL (130-400) 04/27/21 04:35 MPV 9.5 fL (7.4-10.4) 04/27/21 04:35 Immature Gran % (Auto) 7.9 % 04/27/21 04:35 Neut % (Auto) 68.0 % 04/27/21 04:35 Lymph % (Auto) 12.4 % 04/27/21 04:35 Levy % (Auto) 9.4 % 04/27/21 04:35 Eos % (Auto) 2.1 % 04/27/21 04:35 Baso % (Auto) 0.2 % 04/27/21 04:35 Neut # (Auto) 3.89 K/uL (1.4-6.5) 04/27/21 04:35 Lymph # (Auto) 0.71 K/uL (1.2-3.4) L 04/27/21 04:35 Levy # (Auto) 0.54 K/uL (0.11-0.59) 04/27/21 04:35 Eos # (Auto) 0.12 K/uL (0-0.5) 04/27/21 04:35 Baso # (Auto) 0.01 K/uL (0-0.2) 04/27/21 04:35 Immature Gran # (Auto) 0.45 K/uL (0.00-0.02) H 04/27/21 04:35 Neutrophils % (Manual) 73.0 % 04/26/21 11:34 Lymphocytes % (Manual) 9.0 % 04/26/21 11:34 Monocytes % (Manual) 10.8 % 04/26/21 11:34 Eosinophils % (Manual) 1.8 % 04/26/21 11:34 Metamyelocytes % (Man) 1.8 % 04/26/21 11:34 Myelocytes % (Man) 3.6 % 04/26/21 11:34 Neutrophils # (Manual) 7.16 K/uL (1.4-6.5) H 04/26/21 11:34 Total Absolute Neuts 7.16 K/uL (1.4-6.5) H 04/26/21 11:34 Lymphocytes # (Manual) 0.88 K/uL (1.2-3.4) L 04/26/21 11:34 Total Abs Lymphocytes 0.88 K/uL (1.2-3.4) L 04/26/21 11:34 Monocytes # (Manual) 1.06 K/uL (0.11-0.59) H 04/26/21 11:34 Eosinophils # (Manual) 0.18 K/uL (0-0.5) 04/26/21 11:34 Metamyelocytes # (Man) 0.18 K/uL (0-0) H 04/26/21 11:34 Myelocytes # (Manual) 0.35 K/uL (0-0) H 04/26/21 11:34 Sodium 129 mmol/L (136-145) L 04/27/21 04:35 Potassium 3.8 mmol/L (3.5-5.1) 04/27/21 04:35 Chloride 97 mmol/L (98-107) L 04/27/21 04:35 Carbon Dioxide 23 mmol/L (21-32) 04/27/21 04:35 Anion Gap 9 (3-11) 04/27/21 04:35 BUN 8 mg/dl (6-23) 04/27/21 04:35 Creatinine 0.71 mg/dl (0.6-1.4) D 04/27/21 04:35 Est Cr Clr Drug Dosing 100.2 ml/min 04/27/21 04:35 Est GFR ( Amer) 108.6 ml/min 04/27/21 04:35 Est GFR (Non-Af Amer) 93.7 ml/min 04/27/21 04:35 BUN/Creatinine Ratio 11.3 (10-20) 04/27/21 04:35 Glucose 103 mg/dl (70-99(Fasting)) H 04/27/21 04:35 Calcium 8.0 mg/dl (8.5-10.1) L 04/27/21 04:35 Total Bilirubin 0.5 mg/dl (0.2-1.0) 04/27/21 04:35 AST 20 U/L (13-39) 04/27/21 04:35 ALT 23 U/L (7-52) 04/27/21 04:35 Alkaline Phosphatase 40 U/L (34-104) 04/27/21 04:35 Total Protein 5.7 gm/dl (6.0-8.3) L 04/27/21 04:35 Albumin 3.0 gm/dl (3.4-5.0) L 04/27/21 04:35 Globulin 2.7 gm/dl (2.5-4.0) 04/27/21 04:35 Albumin/Globulin Ratio 1.1 (0.9-2) 04/27/21 04:35 Lipase 120 U/L (11-82) H 04/26/21 11:34 SARS-CoV-2, RNA, NAAT NEGATIVE (NEGATIVE) 04/26/21 15:30 Impressions Abdomen/Pelvis CT 04/26/21 12:26 CT abd pelvis IV con only CLINICAL HISTORY: diffuse abdominal distension, bloody stools TECHNIQUE: Helical axial images of the abdomen and pelvis were obtained and displayed. Automated dose lowering techniques and/or adjustment according to patient size were utilized for this exam. This exam was performed with intravenous contrast. COMPARISON: Comparison is made to CT abdomen pelvis 04/19/2021 FINDINGS: Lower chest: Bilateral atelectasis is seen. There is groundglass opacity in the lingula. Liver: Unremarkable. No focal lesions are seen. Gallbladder and biliary tree: Cholelithiasis is seen without evidence of cholecystitis. No intra- or extrahepatic biliary ductal dilation. Pancreas: Unremarkable, no focal lesions. Spleen: Unremarkable. Adrenals: Unremarkable. Kidneys and ureters: A left renal cyst is seen. Bladder: Unremarkable. Reproductive organs: Unremarkable. Bowel: Patient is status post colostomy. Lymph nodes Retroperitoneal: Unremarkable. Mesenteric: Unremarkable. Pelvic: Unremarkable. Peritoneum: Normal. Vessels: Unremarkable. Abdominal wall: There is a parastomal hernia about the colostomy site. Bones: Posterior spinal fixation hardware is seen. Anterior and lateral sacroiliac screws are seen. IMPRESSION: 1. No acute abnormalities. Patient is status post colectomy. 2. Atelectasis and groundglass opacities are seen, somewhat less prominent than the prior exam. This may represent an element of improving pneumonia. ACT 112: Negative or not required by law. Electronically signed by: Gary Tran M.D. 04/26/2021 1:54 PM PG Care Time/CCT Total # of Minutes Spent Total Time Spent with Patient: Total time spent is greater than 50% in coordination of care (as documented) at patient's floor/unit and/or counseling patient: Coding Level of Care Code 74254 Initial Inpt Care Lvl 3 Diagnoses Acute upper gastrointestinal bleeding K92.2 Acute blood loss anemia D62 Colostomy [address] Z93.3
--- NOTE | 2021-04-27 10:14 | XRay Report ---
XR chest 1V portable HISTORY: 71 years-old Male follow up pneumonia follow-up study in a patient with pneumonia COMPARISON: CT abdomen pelvis 04/26/2021, chest radiograph 04/19/2021 TECHNIQUE: Portable AP view of the chest FINDINGS: The cardiomediastinal and hilar silhouettes are within normal limits. No pneumothorax or large pleura l effusion. Left mid and basilar predominant ill-defined airspace opacities are redemonstrated and garcia ve slightly improved from 04/19/2021. Degenerative changes of the shoulders and spine. Thoracolumbar an d cervical spinal fusion hardware. IMPRESSION: Slight improvement of the left lung predominant airspace opacities suggestive of persiste nt/resolving pneumonia. ACT 112: Negative or not required by law. The above report was generated using voice recognition software. It may contain grammatical, syntax o r spelling errors. Electronically signed by: Gian Pickett M.D. 04/27/2021 10:13 AM
[2021-04-27 11:45] LABS: Hematocrit (blood only) 26.5 % (42-52)
--- NOTE | 2021-04-27 11:56 | Anesthesiology Consultation ---
Date of Service April 27, 2021 Assessment & Plan (1) Encounter for pre-operative examination: Chart Review Chart Review: Acceptable Risk for Surgery History Surgery Operation Date: 04/27/21 17:30 Proposed Procedures p Colonoscopy EGD Dr. Tracey Webb MD Height/Weight Height: 5 ft 11 in Weight: 88.451 kg Allergies Allergy/AdvReac Type Severity Reaction Status Date / Time rosuvastatin AdvReac Severe Myalgia Verified 04/26/21 14:27 Medications Home Medications Medication Instructions Recorded Confirmed Last Taken acetaminophen 500 mg capsule 500 mg PO Q8H PRN cap 10/12/20 04/26/21 Unknown aspirin 81 mg tablet,delayed 81 mg PO QAM #30 tab 11/05/20 04/26/21 04/19/21 release atorvastatin 40 mg tablet 40 mg PO QAM #90 tab 11/30/20 04/26/21 04/19/21 clopidogrel 75 mg tablet 75 mg PO QAM #90 tab 11/30/20 04/26/21 04/19/21 metformin 500 mg tablet 500 mg PO BID #180 tab 12/08/20 04/26/21 04/19/21 08:00 lisinopril 5 mg tablet (Zestril) 5 mg PO QAM #90 tab 12/16/20 04/26/21 04/19/21 metoprolol tartrate 25 mg tablet 25 mg PO BID #180 tab 12/16/20 04/26/21 04/19/21 08:00 naloxone 4 mg/actuation nasal spray 1 spray INTRANASAL Q3M PRN 12/19/20 04/26/21 Unknown baclofen 20 mg tablet 20 mg PO TID #270 tab 01/13/21 04/26/21 04/19/21 08:00 gabapentin 600 mg tablet 600 mg PO QID #360 tab 01/13/21 04/26/21 04/19/21 08:00 oxycodone 5 mg tablet 5 mg PO Q4H PRN #540 tab 01/15/21 04/26/21 04/19/21 08:00 oxymorphone 30 mg tablet,extended 30 mg PO BID #180 tab 01/15/21 04/26/21 04/19/21 release,12 hr meloxicam 15 mg tablet 15 mg PO DAILY #30 tab 03/10/21 04/26/21 04/19/21 tamsulosin 0.4 mg capsule 0.4 mg PO HS #90 cap 04/06/21 04/26/21 04/18/21 amlodipine 10 mg tablet 10 mg PO QAM 04/19/21 04/26/21 04/19/21 loratadine 10 mg tablet (Claritin) 10 mg PO DAILY PRN 04/19/21 04/26/21 Unknown multivitamin 1 tab PO DAILY 04/19/21 04/26/21 04/19/21 amoxicillin 875 mg-potassium 1 tab PO BID 6 Days #12 tab 04/25/21 04/26/21 Unknown clavulanate 125 mg tablet pantoprazole 40 mg tablet,delayed See Rx Instructions .ROUTE 04/25/21 04/26/21 Unknown release (Protonix) .COMPLEX #48 tab Active Medications Generic Name Dose Route Start Last Admin Trade Name Freq PRN Reason Stop Dose Admin Amlodipine Besylate 10 mg 04/27/21 09:00 04/27/21 08:39 Amlodipine Besylate 5 Mg Tab PO 05/27/21 08:59 10 mg QAM JEY Administration Amoxicillin/Clavulanate Potassium 1 tab 04/26/21 21:00 04/27/21 08:39 Amoxicillin/Clavulanate 875 Mg Tab PO 05/03/21 20:59 1 tab BID JEY Administration Atorvastatin Calcium 40 mg 04/27/21 09:00 04/27/21 08:39 Atorvastatin 40 Mg Tab PO 05/27/21 08:59 40 mg QAM JEY Administration Baclofen 20 mg 04/26/21 21:00 04/27/21 08:39 Baclofen 20 Mg Tab PO 05/26/21 20:59 20 mg TID JEY Administration Gabapentin 600 mg 04/26/21 17:06 04/27/21 08:39 Gabapentin 600 Mg Tab PO 05/26/21 17:05 600 mg QID JEY Administration Lactated Ringer's 1,000 mls @ 100 mls/hr 04/26/21 17:06 04/27/21 06:04 Lr IV 05/26/21 17:05 100 mls/hr .Q10H JEY Administration Pantoprazole Sodium 40 mg/ 100 mls @ 20 mls/hr 04/27/21 08:00 04/27/21 08:28 Dextrose IV 05/27/21 07:59 8 mg/hr Q5H JEY 20 mls/hr Administration 8 MG/HR Meloxicam 15 mg 04/27/21 09:00 04/27/21 08:39 Meloxicam 7.5 Mg Tab PO 05/27/21 08:59 15 mg DAILY JEY Administration Metoprolol Tartrate 25 mg 04/26/21 21:00 04/27/21 08:39 Metoprolol Tartrate 25 Mg Tab PO 05/26/21 20:59 25 mg BID JEY Administration Multivitamins 1 tab 04/27/21 09:00 04/27/21 08:39 Multivitamin Tab PO 05/27/21 08:59 1 tab DAILY JEY Administration Ondansetron HCl 4 mg 04/27/21 07:26 04/27/21 07:36 Ondansetron Inj 2 Mg/Ml 2 Ml Vial IV 05/27/21 07:25 4 mg Q4H PRN Administration Nausea Oxycodone HCl 5 mg 04/26/21 17:06 04/26/21 23:56 Oxycodone Hcl Ir 5 Mg Tab (Immediate Release) PO 05/10/21 17:05 5 mg Q4H PRN Administration Pain Tamsulosin HCl 0.4 mg 04/26/21 21:00 04/26/21 20:35 Tamsulosin Hcl 0.4 Mg Cap PO 05/26/21 20:59 0.4 mg HS JEY Administration Past Medical History Medical History LYUBOV (acute kidney injury) Anxiety disorder BPH with obstruction/lower urinary tract symptoms CAD (coronary artery disease), [place] coronary artery Chronic back pain DM2 (diabetes mellitus, type 2) Hypertension Hyponatremia Obstructive sleep apnea Osteoarthritis Peripheral neuropathy ST elevation (STEMI) myocardial infarction Statin myopathy Past Family History Family History Father Cardiovascular disease Cardiac disorder Prostate cancer Mother Dementia Diabetes Other Hypertension No significant family history Denies family history of Ovarian cancer Myocardial infarction Breast cancer Colorectal cancer Past Surgical History Surgical History H/O inguinal hernia repair H/O resection of rectum History of rectal surgery Previous back surgery S/P cervical spinal fusion S/P tonsillectomy and adenoidectomy Social History Smoking Status: Former smoker tobacco type: cigarettes Smoking cigarettes per day: 20 Hx Alcohol Use: No Hx Substance Use: No substance use type: does not use Last Used Substance: Just Prior to Arrival Last Used Substance Other:: family unsure of last doses Physical Exam Vital Signs Last Vital Signs Temp 36.8 C 04/26/21 10:42 Pulse 97 H 04/27/21 07:00 Resp 20 04/27/21 07:00 BP 151/84 H 04/27/21 07:00 Pulse Ox 98 04/27/21 07:00 Testing Laboratory Results 04/27/21 11:34 04/27/21 04:35 Laboratory Tests 11/04/20 04/19/21 04/27/21 04:43 17:41 04:35 Plt Count 242 INR 1.2 H Hemoglobin A1c 6.7 H Electrocardiogram Date: 04/26/21 Findings: + NSR @ (84 with PAC's) and + NV (old inferior)
[2021-04-27] MEDS: oxyCODONE HCL IR 5 MG TAB (IMMEDIATE RELEASE) PO PRN (12:23)
[2021-04-27] MEDS ORDERED: LIDOCAINE 2% 2 ML VIAL/AMP(20MG/ML) INFIL ONE (13:23)
[2021-04-27] MEDS ORDERED: PROPOFOL IV EMULSION 10 MG/ML 20 ML VIAL IV ONE (13:23)
--- NOTE | 2021-04-27 13:29 | GI REPORT ---
Patient Name: Jere Borrego Procedure Date: 04/27/2021 12:47 PM Date of : 1950 Admit Type: Inpatient Age: 71 Gender: Male Attending MD: Luciano Webb MD Procedure: Upper GI endoscopy Providers: Luciano Webb MD Referring MD: Loy Browning Indications: Melena Medicines: Monitored Anesthesia Care Complications: No immediate complications. Estimated blood loss: None. Estimated Blood Loss: Estimated blood loss: none. Procedure: Pre-Anesthesia Assessment: - Prior Anticoagulants: The patient has taken no previous anticoagulant or antiplatelet agents. - ASA Grade Assessment: II - A patient with mild systemic disease. After obtaining informed consent, the endoscope was passed under direct vision. Throughout the procedure, the patient's blood pressure, pulse, and oxygen saturations were monitored continuously. The Colonoscope was introduced through the anus and advanced to the second part of duodenum. The upper GI endoscopy was accomplished without difficulty. The patient tolerated the procedure well. Findings: The examined esophagus was normal. Diffuse moderate inflammation characterized by erythema was found in the stomach. Biopsies were taken with a cold forceps for Helicobacter pylori testing. Estimated blood loss: none. The duodenal bulb and second portion of the duodenum were normal. Impression: - Normal esophagus. - Gastritis. Biopsied. - Normal duodenal bulb and second portion of the duodenum. Recommendation: - [facility] care. - Advance diet as tolerated today. - Await pathology results. -trend H/H, transfuse prn Luciano Webb MD 04/27/2021 1:28:37 PM This report has been signed electronically. Note Initiated On: 04/27/2021 12:47 PM Number of Addenda: 0 I attest to the content of the Intraoperative Record and orders documented therein, exceptions below {[id number]}
--- NOTE | 2021-04-27 13:33 | GI REPORT ---
Patient Name: Jere Borrego Procedure Date: 04/27/2021 12:47 PM Date of : 1950 Admit Type: Inpatient Age: 71 Gender: Male Attending MD: Luciano Webb MD Procedure: Colonoscopy Providers: Luciano Webb MD Referring MD: Lyo Browning Indications: Melena Medicines: Monitored Anesthesia Care Complications: No immediate complications. Estimated blood loss: None. Estimated Blood Loss: Estimated blood loss: none. Procedure: Pre-Anesthesia Assessment: - Prior Anticoagulants: The patient has taken no previous anticoagulant or antiplatelet agents. - ASA Grade Assessment: III - A patient with severe systemic disease. After I obtained informed consent, the scope was passed under direct vision. Throughout the procedure, the patient's blood pressure, pulse, and oxygen saturations were monitored continuously. The Colonoscope was introduced through the sigmoid colostomy and advanced to the cecum, identified by appendiceal orifice and ileocecal valve. After I obtained informed consent, the scope was passed under direct vision. Throughout the procedure, the patient's blood pressure, pulse, and oxygen saturations were monitored continuously. The colonoscopy was performed without difficulty. The patient tolerated the procedure well. The quality of the bowel preparation was fair. Findings: A few small and large-mouthed diverticula were found in the descending colon. A moderate amount of liquid semi-liquid stool was found in the descending colon and in the transverse colon, making visualization difficult. No evidence of blood nor active bleeding nor polyps or masses. There was a medium-sized lipoma, 6 mm in diameter, in the ascending colon. this was confirmed with a positive pillow test using forceps. Impression: - Preparation of the colon was fair. - Diverticulosis in the descending colon. - Stool in the descending colon and in the transverse colon. - Medium-sized lipoma in the ascending colon. - No specimens collected. Recommendation: - [facility] to [facility] care. - Advance diet as tolerated today. -can discontinue protonix drip, change to protonix 40 mg daily Luciano Webb MD 04/27/2021 1:32:44 PM This report has been signed electronically. Note Initiated On: 04/27/2021 12:47 PM Number of Addenda: 0 I attest to the content of the Intraoperative Record and orders documented therein, exceptions below {[id number]}
--- NOTE | 2021-04-27 13:57 | Anesthesiology Progress Note ---
Date of Service April 27, 2021 Anesthesia Post Procedure Vital Signs Vital Signs: Temp Pulse Pulse Resp BP BP Pulse Ox 04/27/21 13:42 67 16 145/83 H 98 04/27/21 13:27 72 16 136/72 98 04/27/21 12:39 36.2 C L 77 18 148/80 H 97 04/27/21 12:24 80 17 146/79 H 95 04/27/21 07:00 97 H 20 151/84 H 98 04/27/21 05:00 77 16 152/71 H 95 04/27/21 01:28 65 16 162/76 H 96 04/26/21 22:00 62 21 150/87 H 96 04/26/21 21:30 64 19 156/82 H 95 04/26/21 21:00 72 21 155/89 H 96 04/26/21 20:30 85 15 157/85 H 96 04/26/21 17:06 04/26/21 16:30 68 16 148/78 H 95 04/26/21 16:00 78 19 152/84 H 04/26/21 15:30 81 20 139/77 94 04/26/21 15:00 75 14 145/89 H 96 Pulse Ox 04/27/21 13:42 04/27/21 13:27 04/27/21 12:39 04/27/21 12:24 04/27/21 07:00 98 04/27/21 05:00 04/27/21 01:28 04/26/21 22:00 04/26/21 21:30 04/26/21 21:00 04/26/21 20:30 04/26/21 17:06 96 04/26/21 16:30 04/26/21 16:00 04/26/21 15:30 04/26/21 15:00 Pain Intensity Neck: Pain Intensity: 4 Transfer of Care Handoff Completed per policy Notes Mental Status: alert / awake / arousable Patient Amnestic to Procedure: Yes Nausea / Vomiting: adequately controlled Pain: adequately controlled Airway Patency, RR, SpO2: stable & adequate BP & HR: stable & adequate Hydration State: stable & adequate Anesthetic Complications: no major complications apparent
--- NOTE | 2021-04-27 19:23 | Hospitalist Progress Note ---
Date of Service April 27, 2021 Assessment & Plan (1) Acute upper gastrointestinal bleeding: Plan: 71yo male History of previous colostomy for rectal carcinoma, recent SBO, and recent concern for upper GI bleed who presents with dark output from his ostomy concerning for upper GI bleed Black output into ostomy bag, concern for upper GI bleed EGD/colonoscopy without acute GI bleed - switch pantoprazole to 40mg PO per GI recommendations, will initially give 40mg PO BID then daily on discharge (2) CAD (coronary artery disease), [place] coronary artery: Plan: CAD - Continue atorvastatin - ASA/Plaavix held - Continue MTP - No chest pain, no shortness of breath, no difficulty breathing Admitting EKG: Sinus rhythm with PACs, no territorial ST changes (3) Hypomagnesemia: Plan: - Mg 1.8 (4) BPH with obstruction/lower urinary tract symptoms: Plan: Continue Flomax nightly Stable (5) DM2 (diabetes mellitus, type 2): Plan: Goal BSG [id number] Home metformin 500 mg p.o. twice daily held SSIAspart correction factor 45, ratio 22 Last hemoglobin A1C 6.7 well-controlled 10/31 (6) Hypertension: Plan: Continue amlodipine Continue to hold lisinopril until Hgb known to be stable Continue metoprolol Plan: DVT prophylaxis: SCDs CODE STATUS: Full code, confirmed with patient by prior provider Disposition: Medical telemetry Admission and Anticipated Discharge Date Admission Date: April 26, 2021 Subjective Patient seen after EGD/colonoscopy. No abdominal pain, tolerating sips of water without nausea or vomiting. Review of Systems Review of Systems: All systems reviewed & are unremarkable except as noted in Subjective Physical Exam Constitutional: WD/WN, vitals as above Eyes: + anicteric sclerae; normal pupil size Neck: trachea midline, no thyromegaly Respiratory: normal respiratory effort, lungs clear to auscultation Cardiovascular: RRR, no murmur, no edema Gastrointestinal (Abdomen): Percussion/Palpation: abdomen soft; abdomen nontender, no guarding and abdomen not rigid Musculoskeletal: no cyanosis or clubbing, extremities motor strength 5/5 Skin: no rashes, warm and dry Neurologic: moves all extremities and awake; not confused Psychiatric: A+Ox3, euthymic affect Results & Data Results & Data ([facility]) Vital Signs (Past 12 Hours) Vital Signs Temp Pulse Resp BP BP Pulse Ox 04/27/21 19:02 36.8 C 81 18 172/87 H 96 04/27/21 13:57 72 16 144/77 H 97 04/27/21 13:42 67 16 145/83 H 98 04/27/21 13:27 72 16 136/72 98 04/27/21 12:39 36.2 C L 77 18 148/80 H 97 04/27/21 12:24 80 17 146/79 H 95 PG Care Time/CCT Total # of Minutes Spent Total Time Spent with Patient: Total time spent is greater than 50% in coordination of care (as documented) at patient's floor/unit and/or counseling patient: Coding Level of Care Code 09343 Subseq Hosp Care Lvl 2 Diagnoses Acute upper gastrointestinal bleeding K92.2 CAD (coronary artery disease), [place] coronary artery I25.10 Hypomagnesemia E83.42 BPH with obstruction/lower urinary tract symptoms N40.1; N13.8 DM2 (diabetes mellitus, type 2) E11.9 Hypertension I10 Hypertension type: essential hypertension (1) Hypertension Hypertension type: essential hypertension Qualified Code(s): I10 - Essential (primary) hypertension
[2021-04-27] MEDS: ACETAMINOPHEN 325 MG TAB PO PRN (19:53)
[2021-04-27 20:22] LABS: Hematocrit (blood only) 26.6 % (42-52); Hemoglobin 9.2 g/dL (14.0-18.0)
[2021-04-27] MEDS: PANTOprazole 40 MG TAB PO SCH (21:03)
[2021-04-27] MEDS: TAMSULOSIN HCL 0.4 MG CAP PO SCH (21:03)
[2021-04-28] MEDS: ACETAMINOPHEN 325 MG TAB PO PRN (03:26)
[2021-04-28 06:41] LABS: Hematocrit (blood only) 28.5 % (42-52); Hemoglobin 9.6 g/dL (14.0-18.0); Mean Corpuscular Hemoglobin 28.5 pg (25-34); Mean Corpuscular Hgb Conc 33.7 g/dL (32-36); Mean Corpuscular Volume 84.6 fL (80-100); Mean Platelet Volume 9.4 fL (7.4-10.4); Platelet Count 270 K/uL (130-400); RDW Coefficient of Variation 12.6 % (11.5-14.5); Red Blood Count 3.37 M/uL (4.7-6.1); White Blood Count 5.89 K/uL (4.8-10.8)
[2021-04-28 07:06] LABS: BUN Creatinine Ratio 10.1 (10-20); Calcium 8.1 mg/dl (8.5-10.1); Est GFR (Non-African American) 89.7 ml/min; Potassium 3.8 mmol/L (3.5-5.1)
[2021-04-28 07:35] LABS: Basophils # (auto) 0.01 K/uL (0-0.2); Basophils % (auto) 0.2 %; Eosinophils # (auto) 0.06 K/uL (0-0.5); Immature Granulocytes % (auto) 5.1 %; Lymphocytes # (auto) 0.75 K/uL (1.2-3.4); Lymphocytes % (auto) 12.7 %; Monocytes # (auto) 0.44 K/uL (0.11-0.59); Monocytes % (auto) 7.5 %; Neutrophils # (auto) 4.33 K/uL (1.4-6.5); Neutrophils % (auto) 73.5 %
[2021-04-28] MEDS: PANTOprazole 40 MG TAB PO SCH (08:20)
[2021-04-28] MEDS: oxyCODONE HCL IR 5 MG TAB (IMMEDIATE RELEASE) PO PRN (08:20)
[2021-04-28] MEDS: METOPROLOL TARTRATE 25 MG TAB PO SCH (08:20)
[2021-04-28] MEDS: MELOXICAM 7.5 MG TAB PO SCH (08:21)
[2021-04-28] MEDS: MULTIVITAMIN TAB PO SCH (08:21)
[2021-04-28] MEDS: ATORVASTATIN 40 MG TAB PO SCH (08:21)
[2021-04-28] MEDS: AMOXICILLIN/CLAVULANATE 875 MG TAB PO SCH (08:21)
[2021-04-28] MEDS: GABAPENTIN 600 MG TAB PO SCH ×2 (08:21→12:46)
[2021-04-28] MEDS: BACLOFEN 20 MG TAB PO SCH (08:21)
[2021-04-28] MEDS ORDERED: PANTOprazole 40 MG TAB PO SCH (09:00)
[2021-04-28] MEDS: amLODIPine BESYLATE 5 MG TAB PO SCH (09:26)
--- NOTE | 2021-04-28 10:20 | Gastroenterology Progress Note ---
Date of Service April 28, 2021 Assessment & Plan (1) Acute upper gastrointestinal bleeding: (2) Acute blood loss anemia: (3) Colostomy in place: Plan: Pt is a 71 y.o. male with a history of rectal CA s/p resection with permanent colostomy as well as CAD s/p stenting on aspirin and plavix as well as NSAID therapy for OA with melena and acute blood loss anemia. No findings on endoscopic work up to explain sx. Suspect small bowel etiology. * Diet as tolerated. * Recommend avoidance of NSAIDs while on ASA/Plavix. * Continue Pantoprazole 40mg PO daily. * Stable for discharge from GI perspective if cleared by primary team. Thank you for allowing us to participating in the care of this patient. If you have any questions or concerns, please do not hesitate to contact us. Admission and Anticipated Discharge Date Admission Date: April 26, 2021 Subjective Patient is status post EGD and colonoscopy yesterday by Dr. Webb for acute bl ood loss anemia and dark stools. No evidence of bleeding was noted. H&H remains stable. Patient denies any abdominal pain, n/v, or further melena. Verbalizes desire for discharge to home today. Review of Systems Review of Systems: All systems reviewed & are unremarkable except as noted in Subjective Physical Exam Constitutional: WD/WN, vitals as above Respiratory: normal respiratory effort, lungs clear to auscultation Cardiovascular: RRR, no murmur, no edema Gastrointestinal (Abdomen): normal bowel sounds, soft, nontender, no hepatosplenomegaly Psychiatric: A+Ox3, euthymic affect Results & Data Results & [facility] ([facility]) Vital Signs (Past 12 Hours) Vital Signs Temp Pulse Pulse Resp BP BP Pulse Ox 04/28/21 07:29 36.6 C 71 17 184/87 H 97 04/28/21 07:19 88 04/28/21 03:04 36.7 C 68 18 149/71 H 92 04/27/21 22:19 68 PG Care Time/CCT Total # of Minutes Spent Total Time Spent with Patient: Total time spent is greater than 50% in coordination of care (as documented) at patient's floor/unit and/or counseling patient: Coding Level of Care Code 42575 Subseq Hosp Care Lvl 3 Diagnoses Acute upper gastrointestinal bleeding K92.2 Acute blood loss anemia D62 Colostomy [address] Z93.3
--- NOTE | 2021-04-28 12:01 | Discharge Summary ---
Date of Service April 28, 2021 Admission HPI Per Admitting Provider Jere is a 71-year-old male with history of small bowel obstruction, upper GI bleed, coronary artery disease, coronary stenting, DM 2, tobacco use, anxiety, and hypertension who presents with return of dark output from his ostomy bag following resumption of his antiplatelet agents. Was recently admitted and discharged for SBO with concern for upper GI bleed which normalized and had a stable hemoglobin. "Poop is black as the she of spades again. "Endorses normal volume of output, but which has turned black after being normal in color on his previous discharge. No vomiting. NO emesis. Some epigastric tenderness. SOme increased fatigue in the last day. No lightheadedness dizzyness, syncope, presyncope. Had some scrambled eggs this morning, chili last night but has a slightly decreased appetite. No chest pain, no chest pressure, no shortness of breath, no difficulty breathing.Has not noticed any other symptoms. He is seen at bedside with his present.Last took his DAPT and lisinopril this morning. Medical History: Reviewed Medications: Reviewed Surgical History: Reviewed Allergies: Reviewed Social History: No EtoH, uses chew. Quit smoking 40 years ago, had smoked for 20 years ~0.5ppd at that time. Code Status:Surrogate decision maker would Tara Slade . Full Code. Principal Diagnosis Melena Discharge Exam Constitutional WD/WN, vitals as above Eyes + anicteric sclerae; normal pupil size Neck trachea midline, no thyromegaly Respiratory normal respiratory effort, lungs clear to auscultation Cardiovascular RRR, no murmur, no edema Gastrointestinal (Abdomen) Percussion/Palpation: abdomen soft; abdomen nontender, no guarding and abdomen not rigid Musculoskeletal no cyanosis or clubbing, extremities motor strength 5/5 Skin no rashes, warm and dry Neurologic moves all extremities and awake; not confused Psychiatric A+Ox3, euthymic affect Discharge Data Allergies Allergy/AdvReac Type Severity Reaction Status Date / Time rosuvastatin AdvReac Severe Myalgia Verified 05/03/21 15:42 Consultations 04/26/21 14:46 Consult Gastroenterology Routine ED Decision to Admit Stat Procedures Performed Operation Date: 04/27/21 17:30 Actual Procedures p EGD Biopsy Cytology - Luciano Webb MD s Colonoscopy - Luciano Webb MD Ordered Studies 04/26/21 12:26 CT abd pelvis IV con only Stat IMPRESSION: 1. No acute abnormalities. Patient is status post colectomy. 2. Atelectasis and groundglass opacities are seen, somewhat less prominent than the prior exam. This may represent an element of improving pneumonia. Hospital Course (1) Acute upper gastrointestinal bleeding: Jere Borrego is a 71 year old male admitted to [facility] from April 26 - 2021 due to large melena concerning for an upper gastrointestinal bleed. Hemoglobin has been stable (9.6 on day of discharge) throughout his admission and no bleeding source was seen on upper endoscopy and colonoscopy. He should continue on pantoprazole as previously prescribed on last discharge. He should continue previously prescribed medications for pneumonia with Augmentin 875-125mg twice daily until 05/01/20. Aspirin and Plavix have been resumed to prevent another heart attack since no bleeding was found. No changes to his medications from recent discharge have been made. (2) CAD (coronary artery disease), yocha dehe coronary artery: (3) Hypomagnesemia: (4) BPH with obstruction/lower urinary tract symptoms: (5) DM2 (diabetes mellitus, type 2): (6) Hypertension: Total Time Total Time Spent Total Time Spent (In Minutes): 20 Discharge Plan Discharge Items Patient Disposition: Home - Self-Care Reason For Visit: UGIB Discharge Diagnosis: Melena Activity: Resume your previous activity Non-emergency contact: Primary Care Provider Call non-emergency contact if: you have any medication questions and your symptoms worsen Follow-up/Referrals: Loy Browning III, CRNP [Primary Care Provider] - 05/10/21 4:00 pm Diet: Carb Consistent or DM2 and Heart Healthy Addtl Attending Provider Instructions: You were admitted to [facility] from April 26 - 2021 due to large melena concerning for an upper gastrointestinal bleed. You hemoglobin has been stable throughout your admission and no bleeding source was seen on upper endoscopy and colonoscopy. You have been prescribed an anti-acid medication, protonix. Pleas take protonix 40mg by mouth TWICE DAILY for 10 days, then protonix 40mg ONCE DAILY for a total of 4-6 weeks. Your PCP will discuss this medication with you further your followup appointment. You make take miralax up to 2 capfuls twice daily as needed to help with bowel movements. Please continue previously prescribed medications for your pneumonia with Augmentin 875-125mg twice daily until 05/01/20. Your aspirin and Plavix have been resumed to prevent another heart attack since no bleeding was found. Please DO NOT take any NSAIDs at this time including Mobic, ibuprofil, Advil, Aleve, and/or motrin. Please note that opioid use can contribute to constipation and bowel obstruction. If you are not having any pain, it is OK to skip or delay a dose of oxycodone. Please discuss your pain control further with your physicians at followup. No changes to your medications from your recent discharge have been made. Pending Studies at Discharge: No Stand-Alone Forms: My [facility], Smoking Cessation Medications and DC Order Prescriptions: Continued acetaminophen 500 mg capsule 500 mg PO Q8H PRN (Reason: Pain) RF: 0 clopidogrel 75 mg tablet 75 mg PO QAM Qty: 90 RF: 3 atorvastatin 40 mg tablet 40 mg PO QAM Qty: 90 RF: 3 metformin 500 mg tablet 500 mg PO BID Qty: 180 RF: 1 lisinopril [Zestril] 5 mg tablet 5 mg PO QAM Qty: 90 RF: 1 metoprolol tartrate 25 mg tablet 25 mg PO BID Qty: 180 RF: 1 meloxicam 15 mg tablet 15 mg PO DAILY Qty: 30 RF: 0 tamsulosin 0.4 mg capsule 0.4 mg PO HS Qty: 90 RF: 1 naloxone 4 mg/actuation spray,non-aerosol 1 spray intranasal Q3M PRN (Reason: OVER SEDATION) RF: 0 aspirin 81 mg Tablet,Delayed Release (Dr/Ec) 81 mg PO QAM Qty: 30 RF: 0 multivitamin Tablet 1 tab PO DAILY RF: 0 amlodipine 10 mg tablet 10 mg PO QAM RF: 0 loratadine [Claritin] 10 mg Tablet 10 mg PO DAILY PRN (Reason: Congestion) RF: 0 pantoprazole [Protonix] 40 mg tablet,delayed release (DR/EC) See Rx Instructions .ROUTE .COMPLEX Qty: 48 RF: 0 No Action oxymorphone 30 mg tablet extended release 12 hr 30 mg PO BID 30 Days Qty: 60 RF: 0 oxycodone 5 mg tablet 5 mg PO TID 30 Days Qty: 90 RF: 0 baclofen 20 mg tablet 20 mg PO TID Qty: 270 RF: 0 gabapentin 600 mg tablet 600 mg PO QID Qty: 360 RF: 0 Discharge Orders: Discharge Order (Routine); Ordered 04/28/21 Ordered By: Say Steele Admission Data Admit Date/Time: 04/26/21 16:25 Attending Provider: Say Steele Admit Provider: Arsalan Hinkle Primary Care Provider: Loy Browning III Other Providers: Arsalan Hinkle ; Luciano Webb Other Interventions: Discharge Summary Assessment (RN) Last Done: 04/28/21 12:52 Coding Level of Care Code D/C DAY MANAGEMENT <30 MINS Diagnoses Acute upper gastrointestinal bleeding K92.2 CAD (coronary artery disease), yocha dehe coronary artery I25.10 Hypomagnesemia E83.42 BPH with obstruction/lower urinary tract symptoms N40.1; N13.8 DM2 (diabetes mellitus, type 2) E11.9 Hypertension I10 Hypertension type: essential hypertension
[2021-04-28] MEDS ORDERED: ASPIRIN 81 MG ECTAB PO SCH (12:15)
[2021-04-28] MEDS ORDERED: CLOPIDOGREL BISULFATE 75 MG TAB PO SCH (12:15)
== END 2021-04-28 13:15 | disposition home or self-care (01) ==
LOC: ED 10:22 → EDINP 16:25 → SUATTDRO 16:25 → INTOOBSV 16:25 → 2N 04-27 18:47
DX: M19.90 Unspecified osteoarthritis, unspecified site; D62 Acute posthemorrhagic anemia; I25.10 Atherosclerotic heart disease of native coronary artery without angina pectoris; N40.1 Benign prostatic hyperplasia with lower urinary tract symptoms; Z79.84 Long term (current) use of oral hypoglycemic drugs; G47.33 Obstructive sleep apnea (adult) (pediatric); K29.70 Gastritis, unspecified, without bleeding; E83.42 Hypomagnesemia; K57.30 Diverticulosis of large intestine without perforation or abscess without bleeding; I10 Essential (primary) hypertension; Z20.822 Contact with and (suspected) exposure to COVID-19; K92.2 Gastrointestinal hemorrhage, unspecified; Z79.899 Other long term (current) drug therapy; N13.8 Other obstructive and reflux uropathy; Z79.82 Long term (current) use of aspirin; Z88.8 Allergy status to other drugs, medicaments and biological substances; E11.9 Type 2 diabetes mellitus without complications

== ENCOUNTER 2021-05-26 05:44 | Inpatient (IN) ==
[2021-05-26] MEDS ORDERED: SODIUM CHLORIDE 0.9% 500 ML IV ONE (06:38)
[2021-05-26 06:40] LABS: Basophils # (auto) 0.01 K/uL (0-0.2); Basophils % (auto) 0.1 %; Eosinophils # (auto) 0.02 K/uL (0-0.5); Eosinophils % (auto) 0.1 %; Hematocrit (blood only) 37.2 % (42-52); Hemoglobin 12.4 g/dL (14.0-18.0); Immature Granulocytes # (auto) 0.06 K/uL (0.00-0.02); Immature Granulocytes % (auto) 0.4 %; Lymphocytes # (auto) 0.85 K/uL (1.2-3.4); Lymphocytes % (auto) 5.1 %; Mean Corpuscular Hemoglobin 28.6 pg (25-34); Mean Corpuscular Hgb Conc 33.3 g/dL (32-36); Mean Corpuscular Volume 85.9 fL (80-100); Mean Platelet Volume 9.7 fL (7.4-10.4); Monocytes # (auto) 0.35 K/uL (0.11-0.59); Monocytes % (auto) 2.1 %; Neutrophils # (auto) 15.36 K/uL (1.4-6.5); Neutrophils % (auto) 92.2 %; Platelet Count 248 K/uL (130-400); RDW Coefficient of Variation 13.2 % (11.5-14.5); RDW Standard Deviation 42.1 fL (36.4-46.3); Red Blood Count 4.33 M/uL (4.7-6.1); White Blood Count 16.65 K/uL (4.8-10.8)
--- NOTE | 2021-05-26 06:48 | XRay Report ---
XR chest 1V portable CLINICAL HISTORY: confusion COMPARISON STUDY: Chest CT April 19, 2021. Chest radiograph April 27, 2021. FINDINGS: Lung volumes are normal. Lungs are clear. Left lung opacity shown on prior exam has resolve d. There is no pneumothorax or pleural effusion. Cardiac size is normal. Mediastinal contours are nor mal. There is no evidence for pulmonary edema. Postoperative findings within the spine are partially imaged. IMPRESSION: No acute cardiopulmonary findings. ACT 112: Negative or not required by law. Electronically signed by: Salvador Sim M.D. 05/26/2021 6:47 AM
[2021-05-26 07:01] LABS: Troponin I < 0.03 ng/ml (0-0.04)
[2021-05-26 07:02] LABS: Alanine Aminotransferase 11 U/L (7-52); Albumin Globulin Ratio 1.2 (0.9-2); Albumin Level 3.9 gm/dl (3.4-5.0); Alkaline Phosphatase 115 U/L (34-104); Anion Gap 9 (3-11); Aspartate Aminotransferase 19 U/L (13-39); BUN Creatinine Ratio 11.3 (10-20); Bilirubin,Total 0.8 mg/dl (0.2-1.0); Blood Urea Nitrogen 19 mg/dl (6-23); Calcium 8.8 mg/dl (8.5-10.1); Carbon Dioxide 24 mmol/L (21-32); Chloride 93 mmol/L (98-107); Creatinine Clr Calc Pharmacy 42.3 ml/min; Est GFR (African American) 46.3 ml/min; Globulin 3.3 gm/dl (2.5-4.0); Glucose 160 mg/dl (70-99(Fasting)); Magnesium 1.2 mg/dl (1.7-2.4); Potassium 4.9 mmol/L (3.5-5.1); Sodium 126 mmol/L (136-145); Total Protein 7.2 gm/dl (6.0-8.3)
[2021-05-26 07:07] LABS: INR 1.1 (0.9-1.1); Partial Thromboplastin Ratio 1.1; Partial Thromboplastin Time 29.6 Seconds (21.0-31.0); Prothrombin Time 11.8 Seconds (9.0-12.0)
--- NOTE | 2021-05-26 07:16 | CT Scan Report ---
CT SCAN OF THE BRAIN WITHOUT IV CONTRAST CLINICAL HISTORY: Generalized weakness. Change in mental status. COMPARISON STUDY: CT of the brain dated 04/19/2021. TECHNIQUE: Unenhanced axial CT scan of the brain is performed from the vertex to the skull base. A do se lowering technique was utilized adhering to the principles of ALARA. CT DOSE: 823.94 mGycm FINDINGS: Brain parenchyma: There are age-related involutional changes noting mild subcortical and periventric ular microangiopathic change. There is no hemorrhage, mass effect, or evidence of acute territorial i schemia by CT criteria. Henriquez-white matter differentiation is preserved. No extra-axial fluid collecti on is seen. Ventricles, sulci, cisterns: Prominent secondary to involutional change. Intracranial vasculature: There is atherosclerotic calcification of the cavernous carotid and vertebr al arteries. Calvarium: Unremarkable. Sinuses and mastoids: There is evidence of previous paranasal sinus surgery. The visualized paranasal sinuses are clear. The mastoid air cells are well pneumatized. Orbits: The bony orbits are grossly intact. IMPRESSION: There is no hemorrhage, mass effect, or evidence of acute territorial ischemia by CT crit siddharth. ACT 112: Negative or not required by law. Electronically signed by: Mateo Hernandez M.D. 05/26/2021 7:14 AM
[2021-05-26 08:01] LABS: Appearance Urine Clear (Clear); Bilirubin Urine Negative (Negative); Blood Urine Negative (Negative); Color Urine Yellow; Glucose Urine UA Negative (Negative); Ketones Urine Negative (Negative); Leukocyte Esterase Urine Negative (Negative); Nitrite Urine Negative (Negative); Protein Urine Negative (Negative); Specific Gravity Urine 1.007 (1.000-1.030); Urobilinogen Urine Negative (Negative)
[2021-05-26] MEDS: MAGNESIUM SULFATE / D5W 1 GM/100 ML BAG IV SCH ×4 (08:36→23:41)
--- NOTE | 2021-05-26 08:38 | Emergency Department Note ---
Impression & Plan Hyponatremia, Hypomagnesemia, Acute renal insufficiency, Metabolic encephalopathy ED Provider Note NAME: RED VILLARREAL AGE: 71 SEX: M ARRIVES VIA: Walk-In INFORMANT: Patient, ED PROVIDER(S): Edgardo Altamirano MD CHIEF COMPLAINT: Confusion PLAN: Disposition: Admit MEDICAL DECISION MAKING: The patient is a pleasant 71-year-old gentleman with a past medical history of hyponatremia, CAD, upper GI bleed, type 2 diabetes, tobacco use, hypertension presents to the emergency department accompanied by his with concern for weakness and confusion that occurred last night at 10 PM, then again at 4 AM and still this morning 5 AM. The reports that at 10 PM he want to go to the bathroom to urinate but reported that he felt too weak. She then gave him a urinal and then he went to sleep. At 4 AM he had to urinate again and the same occurred and she thought he also was more groggy than usual. At 5 AM they finally had her son come to help him get up to go to the hospital and he was able to stand but still a bit confused and groggy. On arrival to the emergency department she reports she is now near his baseline. She does report that he did take his medications early last night around 6 PM when usually he does more so at 9 PM and wonders if this may have had an effect. She also reports he has a history of low sodium and was worried this could be that. She denies any recent falls. Denies any fevers, chills, cough, congestion. Denies any blood in his urine or burning with urination. He is on chronic narcotics for pain. On arrival the patient is fatigued appearing but no acute distress, afebrile with heart rate in 100 and vital signs otherwise stable. He appears clinically dry. He has no focal weakness. EKG without overt acute ischemia. WBC 16K nonspecific. H/H 12.4/37.2 improved from prior. Platelets within normal limits. Chemistry without metabolic acidosis. Creatinine 1.6 increased from baseline. Sodium is 126 decreased from last month. Magnesium is 1.2 and electrolytes otherwise without significant abnormality. LFTs unremarkable. Troponin negative/undetectable. TSH within normal limits. UA without convincing evidence of infection. CT head negative for acute process. Chest x-ray negative for acute cardiopulmonary process. Plan for admission given renal insufficiency and symptomatic hypo natremia/hypomagnesemia. Dr. Proctor, [facility] hospitalist, will evaluate the patient for admission. Triage Nursing notes reviewed and agree them. Prior medical records reviewed Vital Signs: reviewed and remarkable for no significant abnormalities Differential diagnosis: Infection, dehydration, metabolic abnormality, hypo/hyperglycemia, electrolyte disturbance, anemia, hypoxia, cardiac sources, intracerebral event, toxicologic, neurologic, as well as other pathologies. ER treatment provided: See below. Diagnostics interpreted by me: ECG: Sinus tachycardia with PSVC's, 105 bpm, no overt ST elevation or depression, QTC 446, QRS 84 Cardiac Monitoring: An order for continuous cardiac monitoring was placed and demonstrated sinus tachycardia, 105 bpm, PSVT's. Laboratory studies: See below Imaging studies: See below Consultation(s): Dr. Proctor, [facility] hospitalist, will evaluate the patient for admission. HPI: The patient is a pleasant 71-year-old gentleman with a past medical history of hyponatremia, CAD, upper GI bleed, type 2 diabetes, tobacco use, hypertension presents to the emergency department accompanied by his with concern for weakness and confusion that occurred last night at 10 PM, then again at 4 AM and still this morning 5 AM. The reports that at 10 PM he want to go to the bathroom to urinate but reported that he felt too weak. She then gave him a urinal and then he went to sleep. At 4 AM he had to urinate again and the same occurred and she thought he also was more groggy than usual. At 5 AM they finally had her son come to help him get up to go to the hospital and he was abl e to stand but still a bit confused and groggy. On arrival to the emergency department she reports she is now near his baseline. She does report that he did take his medications early last night around 6 PM when usually he does more so at 9 PM and wonders if this may have had an effect. She also reports he has a history of low sodium and was worried this could be that. She denies any recent falls. Denies any fevers, chills, cough, congestion. Denies any blood in his urine or burning with urination. He is on chronic narcotics for pain. ROS: See above HPI for pertinent positives & negatives. A total of 10 systems reviewed and were otherwise negative. VITALS:See Below PHYSICAL EXAMINATION: GENERAL: Awake, alert, fatigued-appearing, in no distress HENT: Normocephalic, atraumatic. Oropharynx with dry mucous membranes and otherwise unremarkable. EYES: Normal conjunctiva. Sclera non-icteric. EOMI. No nystamgus. PEARRL. NECK: Supple. No nuchal rigidity. FROM. No JVD. RESPIRATORY: Clear to auscultation. CARDIAC: Regular rate, normal rhythm. Extremities warm and well perfused. Pulses equal. ABDOMEN: Soft, non-distended. No tenderness to palpation. No rebound or guarding. No masses. RECTAL: Deferred. MUSCULOSKELETAL: Chest examination reveals no tenderness. The back is symmetrical on inspection without obvious abnormality. There is no CVA tenderness to palpation. No joint edema. LOWER EXTREMITIES: Calves are equal size bilaterally and non-tender. No edema. No discoloration. NEURO: AO to self, place, situation. No focal sensory or motor deficits noted. 5/5 strength and SILT x 4 extremities. Cerebellar function intact including [id number] and alternating palms. SKIN: No rash or jaundice noted. ED COURSE: Critical Care: I have personally spent greater than 35 minutes of critical care time in the direct management of this patient. This includes bedside care, interpretation of diagnostic studies, and testing, discussion with consultants, patient, and family members, and other required patient management activities. This 35 minutes is in excess of all separately billable procedures. Edgardo Altamirano MD Past Med/Surg History Medical History Acute upper gastrointestinal bleeding LYUBOV (acute kidney injury) LYUBOV (acute kidney injury) Anxiety disorder BPH with obstruction/lower urinary tract symptoms CAD (coronary artery disease), [place] coronary artery Chronic back pain DM2 (diabetes mellitus, type 2) Hypertension Hyponatremia Hypoxia Metabolic acidosis Obstructive sleep apnea Osteoarthritis Peripheral neuropathy SBO (small bowel obstruction) ST elevation (STEMI) myocardial infarction Statin myopathy Syncope Surgical History H/O inguinal hernia repair H/O resection of rectum History of rectal surgery Previous back surgery S/P cervical spinal fusion S/P tonsillectomy and adenoidectomy Family History Father Cardiovascular disease Cardiac disorder Prostate cancer Mother Dementia Diabetes Other Hypertension No significant family history Denies family history of Ovarian cancer Myocardial infarction Breast cancer Colorectal cancer Social History Smoking Status: Former smoker Age Started Using Tobacco: 17; Age Quit Using Tobacco: 24; packs per day: 1; Years Smoked: 7; Cigarettes Per Day: 20; Number of Years Since Quit: 46; Second Hand Exposure: No; Do You Dip or Chew Tobacco: Yes; Hx Alcohol Use: No Hx Substance Use: No Preferred Language: Ghanaian Communication Ability: Effective Visual Impairment: No Limitations Hearing Ability: Normal Charcoal Unloader Required: No Beliefs That Will Affect Care: None marital status: Current Living Situation: Spouse current occupational status: retired How many Children do You have: 4 Feels Safe at Home: Yes Safety Concerns: Feels Safe At This Time Childhood Exposure to Second-Hand Smoke: No caffeine: Yes during the past year weight has: remained stable Dental Care, Regularly: No Physical Activity Frequency: Daily Seatbelt Use: always Sunscreen Use: No Assistive Devices: Denture - Upper, Denture - Lower and Glasses Allergies Allergies Allergy/AdvReac Type Severity Reaction Status Date / Time rosuvastatin AdvReac Severe Myalgia Verified 05/26/21 07:53 Home Meds Home Medications Medication Instructions Recorded Confirmed acetaminophen 500 mg capsule 500 mg PO Q8H PRN cap 10/12/20 05/26/21 naloxone 4 mg/actuation nasal spray 1 spray INTRANASAL Q3M PRN 12/19/20 05/26/21 loratadine 10 mg tablet (Claritin) 10 mg PO QAM PRN 04/19/21 05/26/21 multivitamin 1 tab PO DAILY 04/19/21 05/26/21 meloxicam 15 mg tablet 15 mg PO QAM 05/26/21 05/26/21 Previous Rx's Medication Instructions Recorded aspirin 81 mg tablet,delayed 81 mg PO QAM #30 tab 11/05/20 release atorvastatin 40 mg tablet 40 mg PO QAM #90 tab 11/30/20 clopidogrel 75 mg tablet 75 mg PO QAM #90 tab 11/30/20 metformin 500 mg tablet 500 mg PO BID #180 tab 12/08/20 lisinopril 5 mg tablet (Zestril) 5 mg PO QAM #90 tab 12/16/20 metoprolol tartrate 25 mg tablet 25 mg PO BID #180 tab 12/16/20 tamsulosin 0.4 mg capsule 0.4 mg PO HS #90 cap 04/06/21 pantoprazole 40 mg tablet,delayed See Rx Instructions .ROUTE 04/25/21 release (Protonix) .COMPLEX #48 tab baclofen 20 mg tablet 20 mg PO TID #270 tab 05/03/21 gabapentin 600 mg tablet 600 mg PO QID #360 tab 05/03/21 amlodipine 10 mg tablet 10 mg PO QAM #90 tab 05/17/21 oxycodone 5 mg tablet 5 mg PO TID 30 Days #90 tab 05/24/21 oxymorphone 30 mg tablet,extended 30 mg PO BID 30 Days #60 tab 05/24/21 release,12 hr Results & Data (ED) Vital Signs Vital Signs - 24 hr 05/26/21 05:49 05/26/21 06:04 05/26/21 06:05 Temperature 36.8 C Temperature Source Temporal Artery Scan Pulse Rate 116 H 103 H Pulse Rate [Finger] Respiratory Rate 20 18 Respiratory Effort / Characteristics Non-Labored Respiratory Depth Normal Blood Pressure 143/86 H 145/89 H Blood Pressure [Left Arm] Blood Pressure Mean 105 107 Blood Pressure Mean [Left Arm] Blood Pressure Position Sitting Pulse Oximetry 95 95 Oxygen Delivery Method Room Air Oxygen Flow Rate Sepsis Recent Fever Within 48 Hours No Sepsis New/Unexplained Change in Mental Status N/A Sepsis Action Taken by Nursing No Action Required 05/26/21 06:07 05/26/21 07:14 05/26/21 08:02 Temperature Temperature Source Pulse Rate Pulse Rate [Finger] 108 H Respiratory Rate 24 Respiratory Effort / Characteristics Respiratory Depth Blood Pressure Blood Pressure [Left Arm] 150/86 H Blood Pressure Mean Blood Pressure Mean [Left Arm] 107 Blood Pressure Position Pulse Oximetry 95 92 Oxygen Delivery Method Room Air Room Air Nasal Cannula Oxygen Flow Rate 2 Sepsis Recent Fever Within 48 Hours Sepsis New/Unexplained Change in Mental Status Sepsis Action Taken by Nursing 05/26/21 08:41 Temperature Temperature Source Pulse Rate Pulse Rate [Finger] 105 H Respiratory Rate 16 Respiratory Effort / Characteristics Respiratory Depth Blood Pressure Blood Pressure [Left Arm] 119/86 Blood Pressure Mean Blood Pressure Mean [Left Arm] 97 Blood Pressure Position Pulse Oximetry 97 Oxygen Delivery Method Nasal Cannula Oxygen Flow Rate 2 Sepsis Recent Fever Within 48 Hours Sepsis New/Unexplained Change in Mental Status Sepsis Action Taken by Nursing Laboratory Data Attestation: I reviewed the patient's lab results. Result diagrams: 05/26/21 06:15 05/26/21 21:04 Lab Results 05/26/21 05/26/21 05/26/21 Range/Units 06:15 06:15 06:15 WBC 16.65 H (4.8-10.8) K/uL RBC 4.33 L (4.7-6.1) M/uL Hgb 12.4 L (14.0-18.0) g/dL Hct 37.2 L (42-52) % MCV 85.9 (80-100) fL MCH 28.6 (25-34) pg MCHC 33.3 (32-36) g/dL RDW Std Deviation 42.1 (36.4-46.3) fL RDW Coeff of Arturo 13.2 (11.5-14.5) % Plt Count 248 (130-400) K/uL MPV 9.7 (7.4-10.4) fL Immature Gran % (Auto) 0.4 % Neut % (Auto) 92.2 % Lymph % (Auto) 5.1 % Fergus % (Auto) 2.1 % Eos % (Auto) 0.1 % Baso % (Auto) 0.1 % Neut # (Auto) 15.36 H (1.4-6.5) K/uL Lymph # (Auto) 0.85 L (1.2-3.4) K/uL Fergus # (Auto) 0.35 (0.11-0.59) K/uL Eos # (Auto) 0.02 (0-0.5) K/uL Baso # (Auto) 0.01 (0-0.2) K/uL Immature Gran # (Auto) 0.06 H (0.00-0.02) K/uL PT 11.8 (9.0-12.0) Seconds INR 1.1 (0.9-1.1) APTT 29.6 (21.0-31.0) Seconds PTT Ratio 1.1 Sodium 126 L (136-145) mmol/L Potassium 4.9 (3.5-5.1) mmol/L Chloride 93 L (98-107) mmol/L Carbon Dioxide 24 (21-32) mmol/L Anion Gap 9 (3-11) BUN 19 (6-23) mg/dl Creatinine 1.68 H (0.6-1.4) mg/dl Est Cr Clr Drug Dosing 42.3 ml/min Est GFR ( Amer) 46.3 ml/min Est GFR (Non-Af Amer) 40.0 ml/min BUN/Creatinine Ratio 11.3 (10-20) Glucose 160 H (70-99(Fasting)) mg/dl Osmolality (280-300) mOsm/kg Calcium 8.8 (8.5-10.1) mg/dl Phosphorus (2.5-4.9) mg/dl Magnesium 1.2 L (1.7-2.4) mg/dl Total Bilirubin 0.8 (0.2-1.0) mg/dl AST 19 (13-39) U/L ALT 11 (7-52) U/L Alkaline Phosphatase 115 H (34-104) U/L Troponin I < 0.03 (0-0.04) ng/ml Total Protein 7.2 (6.0-8.3) gm/dl Albumin 3.9 (3.4-5.0) gm/dl Globulin 3.3 (2.5-4.0) gm/dl Albumin/Globulin Ratio 1.2 (0.9-2) TSH (0.300-4.500) uIu/ml Urine Color Urine Appearance (Clear) Urine pH (4.5-7.5) Ur Specific [place] (1.000-1.030) Urine Protein (Negative) Urine Glucose (UA) (Negative) Urine Ketones (Negative) Urine Blood (Negative) Urine Nitrite (Negative) Urine Bilirubin (Negative) Urine Urobilinogen (Negative) Ur Leukocyte Esterase (Negative) Urine Osmolality (500-800) mOsm/kg SARS-CoV-2, RNA, NAAT (NEGATIVE) 05/26/21 05/26/21 05/26/21 Range/Units 06:15 06:15 07:20 WBC (4.8-10.8) K/uL RBC (4.7-6.1) M/uL Hgb (14.0-18.0) g/dL Hct (42-52) % MCV (80-100) fL MCH (25-34) pg MCHC (32-36) g/dL RDW Std Deviation (36.4-46.3) fL RDW Coeff of Arturo (11.5-14.5) % Plt Count (130-400) K/uL MPV (7.4-10.4) fL Immature Gran % (Auto) % Neut % (Auto) % Lymph % (Auto) % [place] % (Auto) % Eos % (Auto) % Baso % (Auto) % Neut # (Auto) (1.4-6.5) K/uL Lymph # (Auto) (1.2-3.4) K/uL [place] # (Auto) (0.11-0.59) K/uL Eos # (Auto) (0-0.5) K/uL Baso # (Auto) (0-0.2) K/uL Immature Gran # (Auto) (0.00-0.02) K/uL PT (9.0-12.0) Seconds INR (0.9-1.1) APTT (21.0-31.0) Seconds PTT Ratio Sodium (136-145) mmol/L Potassium (3.5-5.1) mmol/L Chloride (98-107) mmol/L Carbon Dioxide (21-32) mmol/L Anion Gap (3-11) BUN (6-23) mg/dl Creatinine (0.6-1.4) mg/dl Est Cr Clr Drug Dosing ml/min Est GFR ( Amer) ml/min Est GFR (Non-Af Amer) ml/min BUN/Creatinine Ratio (10-20) Glucose (70-99(Fasting)) mg/dl Osmolality (280-300) mOsm/kg Calcium (8.5-10.1) mg/dl Phosphorus 3.1 (2.5-4.9) mg/dl Magnesium (1.7-2.4) mg/dl Total Bilirubin (0.2-1.0) mg/dl AST (13-39) U/L ALT (7-52) U/L Alkaline Phosphatase (34-104) U/L Troponin I (0-0.04) ng/ml Total Protein (6.0-8.3) gm/dl Albumin (3.4-5.0) gm/dl Globulin (2.5-4.0) gm/dl Albumin/Globulin Ratio (0.9-2) TSH 1.503 (0.300-4.500) uIu/ml Urine Color Yellow Urine Appearance Clear (Clear) Urine pH 5.0 (4.5-7.5) Ur Specific [place] 1.007 (1.000-1.030) Urine Protein Negative (Negative) Urine Glucose (UA) Negative (Negative) Urine Ketones Negative (Negative) Urine Blood Negative (Negative) Urine Nitrite Negative (Negative) Urine Bilirubin Negative (Negative) Urine Urobilinogen Negative (Negative) Ur Leukocyte Esterase Negative (Negative) Urine Osmolality (500-800) mOsm/kg SARS-CoV-2, RNA, NAAT (NEGATIVE) 05/26/21 05/26/21 05/26/21 Range/Units 07:20 08:45 08:48 WBC (4.8-10.8) K/uL RBC (4.7-6.1) M/uL Hgb (14.0-18.0) g/dL Hct (42-52) % MCV (80-100) fL MCH (25-34) pg MCHC (32-36) g/dL RDW Std Deviation (36.4-46.3) fL RDW Coeff of Arturo (11.5-14.5) % Plt Count (130-400) K/uL MPV (7.4-10.4) fL Immature Gran % (Auto) % Neut % (Auto) % Lymph % (Auto) % [place] % (Auto) % Eos % (Auto) % Baso % (Auto) % Neut # (Auto) (1.4-6.5) K/uL Lymph # (Auto) (1.2-3.4) K/uL [place] # (Auto) (0.11-0.59) K/uL Eos # (Auto) (0-0.5) K/uL Baso # (Auto) (0-0.2) K/uL Immature Gran # (Auto) (0.00-0.02) K/uL PT (9.0-12.0) Seconds INR (0.9-1.1) APTT (21.0-31.0) Seconds PTT Ratio Sodium (136-145) mmol/L Potassium (3.5-5.1) mmol/L Chloride (98-107) mmol/L Carbon Dioxide (21-32) mmol/L Anion Gap (3-11) BUN (6-23) mg/dl Creatinine (0.6-1.4) mg/dl Est Cr Clr Drug Dosing ml/min Est GFR ( Amer) ml/min Est GFR (Non-Af Amer) ml/min BUN/Creatinine Ratio (10-20) Glucose (70-99(Fasting)) mg/dl Osmolality 284 (280-300) mOsm/kg Calcium (8.5-10.1) mg/dl Phosphorus (2.5-4.9) mg/dl Magnesium (1.7-2.4) mg/dl Total Bilirubin (0.2-1.0) mg/dl AST (13-39) U/L ALT (7-52) U/L Alkaline Phosphatase (34-104) U/L Troponin I (0-0.04) ng/ml Total Protein (6.0-8.3) gm/dl Albumin (3.4-5.0) gm/dl Globulin (2.5-4.0) gm/dl Albumin/Globulin Ratio (0.9-2) TSH (0.300-4.500) uIu/ml Urine Color Urine Appearance (Clear) Urine pH (4.5-7.5) Ur Specific [place] (1.000-1.030) Urine Protein (Negative) Urine Glucose (UA) (Negative) Urine Ketones (Negative) Urine Blood (Negative) Urine Nitrite (Negative) Urine Bilirubin (Negative) Urine Urobilinogen (Negative) Ur Leukocyte Esterase (Negative) Urine Osmolality 190 L (500-800) mOsm/kg SARS-CoV-2, RNA, NAAT NEGATIVE (NEGATIVE) Administered Medications Heparin Sodium (Porcine) (Heparin Sod 5,000 Unit/0.5 Ml Vial) 5,000 units SQ Q12 JEY Stop: 06/25/21 20:59 Last Admin: 05/26/21 21:42 Dose: 5,000 units Documented by: [id number] Magnesium Sulfate/Dextrose (Magnesium Sulfate / D5w) 1 gm in 100 mls @ 50 mls/hr IV Q2H JEY Stop: 05/27/21 04:53 Last Admin: 05/26/21 21:29 Dose: 50 mls/hr Documented by: [id number] Insulin Aspart (Insulin Aspart Per Unit) 0 units SC ACHS JEY Stop: 06/25/21 11:41 Last Admin: 05/26/21 21:49 Dose: 1 units Documented by: [id number] Cosigned by: [id number] Admin: 05/26/21 18:14 Dose: 1 units Documented by: [id number] Cosigned by: [id number] Admin: 05/26/21 13:14 Dose: Not Given Documented by: [id number] Metoprolol Tartrate (Metoprolol Tartrate 25 Mg Tab) 25 mg PO BID JEY Stop: 06/25/21 20:59 Last Admin: 05/26/21 21:42 Dose: 25 mg Documented by: [id number] Pantoprazole Sodium (Pantoprazole 40 Mg Tab) 40 mg PO QAM [facility] Stop: 06/25/21 12:14 Last Admin: 05/26/21 13:55 Dose: 40 mg Documented by: [id number] Tamsulosin HCl (Tamsulosin Hcl 0.4 Mg Cap) 0.4 mg PO HS [facility] Stop: 06/25/21 20:59 Last Admin: 05/26/21 21:42 Dose: 0.4 mg Documented by: [id number] Discontinued Medications Sodium Chloride (Nss) 500 mls @ 999 mls/hr IV .Q31M ONE Stop: 05/26/21 07:08 Last Infusion: 05/26/21 07:10 Dose: 0 mls/hr Documented by: [id number] Admin: 05/26/21 06:42 Dose: 999 mls/hr Documented by: [id number] Magnesium Sulfate/Dextrose (Magnesium Sulfate / D5w) 1 gm in 100 mls @ 100 mls/hr IV Q1H JEY Stop: 05/26/21 10:31 Last Infusion: 05/26/21 10:46 Dose: 0 mls/hr Documented by: [id number] Admin: 05/26/21 09:46 Dose: 100 mls/hr Documented by: [id number] Infusion: 05/26/21 09:46 Dose: 0 mls/hr Documented by: [id number] Admin: 05/26/21 08:36 Dose: 100 mls/hr Documented by: [id number] Sodium Chloride (Nss 1000ml) 1,000 mls @ 80 mls/hr IV .[id number] JEY Stop: 06/25/21 11:41 Last Infusion: 05/26/21 21:36 Dose: 0 mls/hr Documented by: [id number] Admin: 05/26/21 12:33 Dose: 80 mls/hr Documented by: [id number] Imaging Data Radiologist's Impression: Chest X-Ray 05/26/21 05:58 XR chest 1V portable CLINICAL HISTORY: confusion COMPARISON STUDY: Chest CT April 19, 2021. Chest radiograph April 27, 2021. FINDINGS: Lung volumes are normal. Lungs are clear. Left lung opacity shown on prior exam has resolved. There is no pneumothorax or pleural effusion. Cardiac size is normal. Mediastinal contours are normal. There is no evidence for pulmonary edema. Postoperative findings within the spine are partially imaged. IMPRESSION: No acute cardiopulmonary findings. ACT 112: Negative or not required by law. Electronically signed by: Salvador Sim M.D. 05/26/2021 6:[address] 05/26/21 06:56 CT SCAN OF THE BRAIN WITHOUT IV CONTRAST CLINICAL HISTORY: Generalized weakness. Change in mental status. COMPARISON STUDY: CT of the brain dated 04/19/2021. TECHNIQUE: Unenhanced axial CT scan of the brain is performed from the vertex to the skull base. A dose lowering technique was utilized adhering to the principl es of ALARA. CT DOSE: 823.94 mGycm FINDINGS: Brain parenchyma: There are age-related involutional changes noting mild husain bcortical and periventricular microangiopathic change. There is no hemorrhage, mass effect, or evidence of acute territorial ischemia by CT criteria. Henriquez- white matter differentiation is preserved. No extra-axial fluid collection is seen. Ventricles, sulci, cisterns: Prominent secondary to involutional change. Intracranial vasculature: There is atherosclerotic calcification of the cavernous carotid and vertebral arteries. Calvarium: Unremarkable. Sinuses and mastoids: There is evidence of previous paranasal sinus surgery. The visualized paranasal sinuses are clear. The mastoid air cells are well pneumatized. Orbits: The bony orbits are grossly intact. IMPRESSION: There is no hemorrhage, mass effect, or evidence of acute territorial ischemia by CT criteria. ACT 112: Negative or not required by law. Electronically signed by: Mateo Hernandez M.D. 05/26/2021 7:14 AM Discharge Plan Visit Data Chief Complaint: Confusion Stated Complaint: UNSTABLE, JUST NOT HIMSELF ED Provider: Edgardo Altamirano Discharge Problem: Hyponatremia, Hypomagnesemia, Acute renal insufficiency, Metabolic en cephalopathy Patient Disposition: Admitted As Inpatient Discharge Instructions Interventions: ED Discharge Assessment Last Done: 05/26/21 11:06
[2021-05-26 10:33] LABS: Appearance Urine Clear (Clear); Bilirubin Urine Negative (Negative); Blood Urine Negative (Negative); Color Urine Yellow; Glucose Urine UA Negative (Negative); Ketones Urine Negative (Negative); Leukocyte Esterase Urine Negative (Negative); Nitrite Urine Negative (Negative); Protein Urine Negative (Negative); Specific Gravity Urine 1.006 (1.000-1.030); Urobilinogen Urine Negative (Negative)
[2021-05-26] MEDS ORDERED: CARBOHYDRATES FOR HYPOGLYCEMIA PO PRN (11:42)
[2021-05-26] MEDS ORDERED: GLUCAGON FOR INJ 1 MG VIAL SQ PRN (11:42)
[2021-05-26] MEDS ORDERED: GLUCOSE 40% GEL 15 GM TUBE PO PRN (11:42)
[2021-05-26] MEDS ORDERED: SODIUM CHLORIDE 0.9% 1000ML 1,000 ML IV SCH (11:42)
[2021-05-26] MEDS ORDERED: ONDANSETRON INJ 2 MG/ML 2 ML VIAL IV PRN (11:42)
[2021-05-26] MEDS ORDERED: GLUCOSE 10 TABS/TUBE PO PRN (11:42)
[2021-05-26] MEDS ORDERED: DEXTROSE 50% 50 ML SYRINGE IV PRN (11:42)
[2021-05-26] MEDS ORDERED: LORATADINE 10 MG TAB PO PRN (11:42)
[2021-05-26] MEDS ORDERED: ACETAMINOPHEN 325 MG TAB PO PRN (12:01)
[2021-05-26] MEDS: INSULIN ASPART PER UNIT SC SCH ×3 (13:14→21:49)
[2021-05-26] MEDS: PANTOprazole 40 MG TAB PO SCH (13:55)
--- NOTE | 2021-05-26 19:02 | History & Physical Report ---
Date of Service May 26, 2021 Assessment & Plan (1) Acute metabolic encephalopathy: Plan: Likely due to his hyponatremia, LYUBOV, and accidental medication overdose (from none of his meds being adjusted for that kidney function). Does have leukocytosis, but infectious work-up negative so far with normal CXR, normal UA, and no other focal signs/symptoms of infection. - Holding all sedating/confusing meds apart from oxycodone PRN. - Correct sodium - Per family, he is already nearly at baseline (2) LYUBOV (acute kidney injury): Plan: Baseline Cr is ~0.9. Cr on admission was 1.6. I think likely due to retention as he had 800 mL PVR. - Monitor now that Cordova is in place. - If no improvement tomorrow, will get nephrology on board. (3) BPH with obstruction/lower urinary tract symptoms: Plan: As noted in H&P HPI, daughter reports multiple episodes of retention that resolve after acute issue has resolved (eg UTI). - May need d/c with Cordova in place with o/p urology f/u. Patient and family were amenable to this. - Continue tamsulosin (4) Weakness: Plan: Due to polypharmacy, urinary retention, and LYUBOV. - PT/OT (5) Polypharmacy: Plan: Is on OxyContin, oxycodone, and gabapentin for his lower back pain. Daughter was asking about tapering these medications. - Stopped OxyContin, baclofen, and gabapentin. So far, patient is comfortable without them. - Continue oxycodone - I told daughter that stopping everything all at once was not safe. She will go with father to PCP appointment to discuss tapering medications. (6) CAD (coronary artery disease), [place] coronary artery: Plan: STEMI status post RCA PCI in 10/2020. No chest pain on admission. - Continue DAPT: ASA/Plavix - Continue beta-vaibhav - Hold ACEi until LYUBOV resolved. (7) Hypertension: Plan: BP initially low in the ER, but now up to 180/75 this evening. - Continue metoprolol and amlodipine - Restart lisinopril once LYUBOV resolves. (8) Chronic back pain: Plan: As above with polypharmacy. - Continue home oxycodone PRN (though per notes, patient takes it TID regardless) - Hold gabapentin, baclofen, and OxyContin - Hold meloxicam for LYUBOV (9) DM2 (diabetes mellitus, type 2): Plan: A1c was 6.7% in 10/2020. - Hold metformin - Sliding scale insulin - Recheck A1c in AM (10) Obstructive sleep apnea: Plan: Has not used CPAP in months. - Encourage use at home - Can use CPAP in hospital as desired. (11) DVT prophylaxis: Plan: Heparin 5,000 units SQ Q12h Admission and Anticipated Discharge Date Admission Date: May 26, 2021 History of Present Illness Primary Care Provider: Loy Browning III, FACILITY TECHNICIAN 71yo M w/ hx of HTN, CAD, HLD, and chronic back pain who presents with confusion and incontinence at home. His daughter reports that he was in his room, yelling at no one last night, saying things like "I won't go!" He got his medications and went to bed. This morning, he was again confused. He refused his pills, and then went out to the kitchen table and just wiped it for about 20 minutes. He had an episode of incontinence and did not even realize it. He was brought in for this reason. At beside, he is alert and awake. He is oriented to himself and time. Per his , he is now back to himself, and he can give me a general ROS, though he cannot explain his actions this morning. In the ER, bladder scan reveals >700 mL remaining in his bladder, and Cordova catheter was ordered. The patient's daughter reports that he has had urinary retention in the past, and has even had a Cordova in long-term previously. She states that it has always been taken out, and he's done well. Allergies Allergy/AdvReac Type Severity Reaction Status Date / Time rosuvastatin AdvReac Severe Myalgia Verified 05/26/21 07:53 Home Medications Medication Instructions Recorded Confirmed Type acetaminophen 500 mg capsule 500 mg PO Q8H PRN cap 10/12/20 05/26/21 History aspirin 81 mg tablet,delayed 81 mg PO QAM #30 tab 11/05/20 05/26/21 Rx release atorvastatin 40 mg tablet 40 mg PO QAM #90 tab 11/30/20 05/26/21 Rx clopidogrel 75 mg tablet 75 mg PO QAM #90 tab 11/30/20 05/26/21 Rx metformin 500 mg tablet 500 mg PO BID #180 tab 12/08/20 05/26/21 Rx lisinopril 5 mg tablet (Zestril) 5 mg PO QAM #90 tab 12/16/20 05/26/21 Rx metoprolol tartrate 25 mg tablet 25 mg PO BID #180 tab 12/16/20 05/26/21 Rx naloxone 4 mg/actuation nasal spray 1 spray INTRANASAL Q3M PRN 12/19/20 05/26/21 History tamsulosin 0.4 mg capsule 0.4 mg PO HS #90 cap 04/06/21 05/26/21 Rx loratadine 10 mg tablet (Claritin) 10 mg PO QAM PRN 04/19/21 05/26/21 History multivitamin 1 tab PO DAILY 04/19/21 05/26/21 History pantoprazole 40 mg tablet,delayed See Rx Instructions .ROUTE 04/25/21 05/26/21 Rx release (Protonix) .COMPLEX #48 tab baclofen 20 mg tablet 20 mg PO TID #270 tab 05/03/21 05/26/21 Rx gabapentin 600 mg tablet 600 mg PO QID #360 tab 05/03/21 05/26/21 Rx amlodipine 10 mg tablet 10 mg PO QAM #90 tab 05/17/21 05/26/21 Rx oxycodone 5 mg tablet 5 mg PO TID 30 Days #90 tab 05/24/21 05/26/21 Rx oxymorphone 30 mg tablet,extended 30 mg PO BID 30 Days #60 tab 05/24/21 05/26/21 Rx release,12 hr meloxicam 15 mg tablet 15 mg PO QAM 05/26/21 05/26/21 History Past Med/Surg History Medical History (Updated 05/26/21 @ 20:52 by Tres Proctor MD) Acute upper gastrointestinal bleeding LYUBOV (acute kidney injury) LYUBOV (acute kidney injury) Anxiety disorder BPH with obstruction/lower urinary tract symptoms CAD (coronary artery disease), [place] coronary artery Chronic back pain DM2 (diabetes mellitus, type 2) Hypertension Hyponatremia Hypoxia Metabolic acidosis Obstructive sleep apnea Osteoarthritis Peripheral neuropathy SBO (small bowel obstruction) ST elevation (STEMI) myocardial infarction Statin myopathy Syncope Surgical History H/O inguinal hernia repair H/O resection of rectum History of rectal surgery Previous back surgery S/P cervical spinal fusion S/P tonsillectomy and adenoidectomy Family History Father Cardiovascular disease Cardiac disorder Prostate cancer Mother Dementia Diabetes Other Hypertension No significant family history Denies family history of Ovarian cancer Myocardial infarction Breast cancer Colorectal cancer Social History Smoking Status: Former smoker Age Started Using Tobacco: 17; Age Quit Using Tobacco: 24; packs per day: 1; Years Smoked: 7; Cigarettes Per Day: 20; Number of Years Since Quit: 46; Second Hand Exposure: No; Do You Dip or Chew Tobacco: Yes; Hx Alcohol Use: No Hx Substance Use: No Preferred Language: Kiswahili Communication Ability: Effective Visual Impairment: No Limitations Hearing Ability: Normal Special Needs Librarian Required: No Beliefs That Will Affect Care: None marital status: Current Living Situation: Spouse current occupational status: retired How many Children do You have: 4 Feels Safe at Home: Yes Safety Concerns: Feels Safe At This Time Childhood Exposure to Second-Hand Smoke: No caffeine: Yes during the past year weight has: remained stable Dental Care, Regularly: No Physical Activity Frequency: Daily Seatbelt Use: always Sunscreen Use: No Assistive Devices: Denture - Upper, Denture - Lower and Glasses Review of Systems Review of Systems: All systems reviewed & are unremarkable except as noted in HPI & below Physical Exam Constitutional: WD/WN, vitals as above Eyes: EOM intact bilaterally; no conjunctival abnormality ENMT: external ear and nose normal, oropharynx normal Neck: trachea midline, no thyromegaly normal visual inspection Respiratory: normal respiratory effort, lungs clear to auscultation no respiratory distress Cardiovascular: RRR, no murmur, no edema Gastrointestinal (Abdomen): Inspection/Auscultation: abdomen normal to inspection; abdomen not distended Musculoskeletal: no cyanosis or clubbing, extremities motor strength 5/5 Skin: no rashes, warm and dry Neurologic: moves all extremities and awake Psychiatric: Orientation: alert, oriented to person, oriented to place and cooperative; + not oriented to time Results & Data Results & Data ([facility]) Vital Signs (Past 12 Hours) Vital Signs Temp Pulse Pulse Resp BP BP Pulse Ox 05/26/21 14:50 36.6 C 86 16 179/85 H 94 05/26/21 11:45 36.3 C L 109 H 16 145/87 H 96 05/26/21 11:42 36.3 C L 109 H 16 145/87 H 96 05/26/21 11:06 103 H 18 130/80 95 05/26/21 10:19 106 H 22 147/82 H 100 05/26/21 08:41 105 H 16 119/86 97 05/26/21 07:14 108 H 24 150/86 H 92 Code Status & VTE Plan VTE Prophylaxis Plan VTE Prophylaxis will be ordered: Yes PG Care Time/CCT Total # of Minutes Spent Total Time Spent with Patient: Total time spent is greater than 50% in coordination of care (as documented) at patient's floor/unit and/or counseling patient: Coding Level of Care Code 84206 Initial Inpt Care Lvl 3 Diagnoses Acute metabolic encephalopathy G93.41 LYUBOV (acute kidney injury) N17.9 Polypharmacy Z79.899 CAD (coronary artery disease), [place] coronary artery I25.10 Chronic back pain M54.5; G89.29 Back pain location: low back pain Back pain laterality: midline Sciatica presence: without sciatica BPH with obstruction/lower urinary tract symptoms N40.1; N13.8 DM2 (diabetes mellitus, type 2) E11.9 Hypertension I10 Hypertension type: essential hypertension DVT prophylaxis Z29.9 Obstructive sleep apnea G47.33 Weakness R53.1 (1) Chronic back pain Back pain location: low back pain Back pain laterality: midline Sciatica presence: without sciatica Qualified Code(s): M54.5 - Low back pain; G89.29 - Other chronic pain (2) Hypertension Hypertension type: essential hypertension Qualified Code(s): I10 - Essential (primary) hypertension
[2021-05-26 21:41] LABS: BUN Creatinine Ratio 11.6 (10-20); Calcium 8.2 mg/dl (8.5-10.1); Creatinine Clr Calc Pharmacy 63.5 ml/min; Est GFR (African American) 75.7 ml/min; Est GFR (Non-African American) 65.3 ml/min; Potassium 4.7 mmol/L (3.5-5.1)
[2021-05-26] MEDS: HEPARIN SOD 5,000 UNIT/0.5 ML VIAL SQ SCH (21:42)
[2021-05-26] MEDS: METOPROLOL TARTRATE 25 MG TAB PO SCH (21:42)
[2021-05-26] MEDS: TAMSULOSIN HCL 0.4 MG CAP PO SCH (21:42)
--- NOTE | 2021-05-26 22:04 | Electrocardiogram Report ---
Test Reason : Blood Pressure : / mmHG Vent. Rate : 105 BPM Atrial Rate : 105 BPM P-R Int : 154 ms QRS Dur : 084 ms QT Int : 338 ms P-R-T Axes : 079 024 058 degrees QTc Int : 446 ms Sinus tachycardia with Premature supraventricular complexes Inferior infarct (cited on or before 20-APR-2020) Abnormal ECG When compared with ECG of 26-APR-2021 11:15, Nonspecific T wave abnormality no longer evident in Inferior leads Confirmed by Roney Lloyd ([id number]) on 05/26/2021 10:04:06 PM Referred By: ED Confirmed By:Roney Lloyd
[2021-05-27] MEDS: MAGNESIUM SULFATE / D5W 1 GM/100 ML BAG IV SCH ×2 (01:59→04:20)
[2021-05-27 06:27] LABS: Hematocrit (blood only) 31.3 % (42-52); Hemoglobin 10.8 g/dL (14.0-18.0); Mean Corpuscular Hgb Conc 34.5 g/dL (32-36); Mean Corpuscular Volume 84.1 fL (80-100); Mean Platelet Volume 9.5 fL (7.4-10.4); Platelet Count 198 K/uL (130-400); RDW Coefficient of Variation 13.5 % (11.5-14.5); RDW Standard Deviation 41.2 fL (36.4-46.3); Red Blood Count 3.72 M/uL (4.7-6.1); White Blood Count 8.58 K/uL (4.8-10.8)
[2021-05-27 06:50] LABS: Estimated Average Glucose 131 mg/dl; Hemoglobin A1C 6.2 % (4.5-5.6)
[2021-05-27 07:33] LABS: Anion Gap 6 (3-11); BUN Creatinine Ratio 11.2 (10-20); Blood Urea Nitrogen 12 mg/dl (6-23); Calcium 8.1 mg/dl (8.5-10.1); Carbon Dioxide 26 mmol/L (21-32); Chloride 99 mmol/L (98-107); Creatinine Clr Calc Pharmacy 66.5 ml/min; Glucose 142 mg/dl (70-99(Fasting)); Magnesium 2.7 mg/dl (1.7-2.4); Sodium 131 mmol/L (136-145)
[2021-05-27] MEDS: PANTOprazole 40 MG TAB PO SCH (09:42)
[2021-05-27] MEDS: METOPROLOL TARTRATE 25 MG TAB PO SCH ×2 (09:42→21:01)
[2021-05-27] MEDS: CLOPIDOGREL BISULFATE 75 MG TAB PO SCH (09:42)
[2021-05-27] MEDS: INSULIN ASPART PER UNIT SC SCH ×4 (09:42→20:56)
[2021-05-27] MEDS: ATORVASTATIN 40 MG TAB PO SCH (09:43)
[2021-05-27] MEDS: HEPARIN SOD 5,000 UNIT/0.5 ML VIAL SQ SCH ×2 (09:43→20:57)
[2021-05-27] MEDS: ASPIRIN 81 MG ECTAB PO SCH (09:43)
[2021-05-27] MEDS: amLODIPine BESYLATE 5 MG TAB PO SCH (09:43)
[2021-05-27] MEDS: oxyCODONE HCL IR 5 MG TAB (IMMEDIATE RELEASE) PO PRN (15:01)
--- NOTE | 2021-05-27 20:16 | Hospitalist Progress Note ---
Date of Service May 27, 2021 Assessment & Plan (1) Acute metabolic encephalopathy: Plan: Likely due to his hyponatremia, LYUBOV, and accidental medication overdose (from none of his meds being adjusted for that kidney function). Does have leukocytosis, but infectious work-up negative so far with normal CXR, normal UA, and no other focal signs/symptoms of infection. - Held all sedating/confusing meds apart from oxycodone PRN. - Correct sodium: improved to 131 - Per family, he is at his baseline. -will restart gabapentin and baclofen and monitor how patient tolerates these meds. -these meds will be decreased by half however. -Gabapentin will be 300 mg TID and baclofen will be 10 mg PRN -Patient is requiring home PT, and family would like patient to stay an additional day until this is arranged. (2) LYUBOV (acute kidney injury): Plan: Baseline Cr is ~0.9. Cr on admission was 1.6. I think likely due to retention as he had 800 mL PVR. - Monitor now that Cordova is in place. -may considr trial prior to discharge, creatinine improved. (3) BPH with obstruction/lower urinary tract symptoms: Plan: As noted in H&P HPI, daughter reports multiple episodes of retention that resolve after acute issue has resolved (eg UTI). - May need d/c with Cordova in place with o/p urology f/u. depnding on if patient is able to void. Patient and family were amenable to this. - Continue tamsulosin (4) Weakness: Plan: Due to polypharmacy, urinary retention, and LYUBOV. - PT/OT (5) Polypharmacy: Plan: Is on OxyContin, oxycodone, and gabapentin for his lower back pain. Daughter was asking about tapering these medications. - Stopped OxyContin, baclofen, and gabapentin on admission. So far, patient is comfortable without them. - Continue oxycodone -will resume gabapentin and baclofen at lower doses and monitor patient. - I told daughter that stopping everything all at once was not safe. She will go with father to PCP appointment to discuss tapering medications. (6) CAD (coronary artery disease), [place] coronary artery: Plan: STEMI status post RCA PCI in 10/2020. No chest pain on admission. - Continue DAPT: ASA/Plavix - Continue beta-vaibhav - Hold ACEi until LYUBOV resolved. (7) Hypertension: Plan: BP initially low in the ER, but now up to 180/75 this evening. - Continue metoprolol and amlodipine - Restart lisinopril once LYUBOV resolves. (8) Chronic back pain: Plan: As above with polypharmacy. - Continue home oxycodone PRN (though per notes, patient takes it TID regardless) - Hold gabapentin, baclofen, and OxyContin - Hold meloxicam for LYUBOV (9) DM2 (diabetes mellitus, type 2): Plan: A1c was 6.7% in 10/2020. - Hold metformin - Sliding scale insulin - Recheck A1c in AM (10) Obstructive sleep apnea: Plan: Has not used CPAP in months. - Encourage use at home - Can use CPAP in hospital as desired. (11) DVT prophylaxis: Plan: Heparin 5,000 units SQ Q12h Admission and Anticipated Discharge Date Admission Date: May 26, 2021 Subjective 71 yo male reports no new complaints. Discussed with nurse, patient has not been hallucinating today. Patient does not recall any hallucinations yesterday, nor does he recall why he was brought int. Review of Systems Review of Systems: All systems reviewed & are unremarkable except as noted in HPI & below Physical Exam Constitutional: WD/WN, vitals as above Eyes: EOM intact bilaterally; no conjunctival abnormality ENMT: external ear and nose normal, oropharynx normal Neck: trachea midline, no thyromegaly normal visual inspection Respiratory: normal respiratory effort, lungs clear to auscultation no respiratory distress Cardiovascular: RRR, no murmur, no edema Gastrointestinal (Abdomen): Inspection/Auscultation: abdomen normal to inspection; abdomen not distended Musculoskeletal: no cyanosis or clubbing, extremities motor strength 5/5 Skin: no rashes, warm and dry Neurologic: moves all extremities and awake Psychiatric: Orientation: alert, oriented to person, oriented to place, oriented to time (Month and year) and cooperative Results & Data Results & [facility] ([facility]) Vital Signs (Past 12 Hours) Vital Signs Temp Pulse Resp BP Pulse Ox 05/27/21 16:00 36.6 C 92 H 18 169/74 H 94 PG Care Time/CCT Total # of Minutes Spent Total Time Spent with Patient: Total time spent is greater than 50% in coordination of care (as documented) at patient's floor/unit and/or counseling patient: Coding Level of Care Code 37110 Subseq Hosp Care Lvl 3 Diagnoses Acute metabolic encephalopathy G93.41 LYUBOV (acute kidney injury) N17.9 BPH with obstruction/lower urinary tract symptoms N40.1; N13.8 Weakness R53.1 Polypharmacy Z79.899 CAD (coronary artery disease), [place] coronary artery I25.10 Hypertension I10 Hypertension type: essential hypertension Chronic back pain M54.5; G89.29 Back pain laterality: midline Back pain location: low back pain Sciatica presence: without sciatica DM2 (diabetes mellitus, type 2) E11.9 Obstructive sleep apnea G47.33 DVT prophylaxis Z29.9 Time Spent (min) 35 (1) Chronic back pain Back pain laterality: midline Back pain location: low back pain Sciatica presence: without sciatica Qualified Code(s): M54.5 - Low back pain; G89.29 - Other chronic pain (2) Hypertension Hypertension type: essential hypertension Qualified Code(s): I10 - Essential (primary) hypertension
[2021-05-27] MEDS: TAMSULOSIN HCL 0.4 MG CAP PO SCH (20:58)
[2021-05-27] MEDS ORDERED: BACLOFEN 10 MG TAB PO PRN (21:01)
[2021-05-27] MEDS: GABAPENTIN 300 MG CAP PO SCH (21:43)
[2021-05-28 06:02] LABS: Hematocrit (blood only) 35.1 % (42-52); Hemoglobin 12.3 g/dL (14.0-18.0); Mean Corpuscular Hemoglobin 29.7 pg (25-34); Mean Corpuscular Volume 84.8 fL (80-100); Mean Platelet Volume 9.8 fL (7.4-10.4); Platelet Count 240 K/uL (130-400); RDW Coefficient of Variation 13.2 % (11.5-14.5); RDW Standard Deviation 41.1 fL (36.4-46.3); Red Blood Count 4.14 M/uL (4.7-6.1); White Blood Count 12.81 K/uL (4.8-10.8)
[2021-05-28 06:39] LABS: BUN Creatinine Ratio 13.1 (10-20); Calcium 8.4 mg/dl (8.5-10.1); Creatinine Clr Calc Pharmacy 71.8 ml/min; Est GFR (African American) 87.8 ml/min; Est GFR (Non-African American) 75.8 ml/min; Potassium 4.2 mmol/L (3.5-5.1)
[2021-05-28] MEDS: CLOPIDOGREL BISULFATE 75 MG TAB PO SCH (09:06)
[2021-05-28] MEDS: PANTOprazole 40 MG TAB PO SCH (09:06)
[2021-05-28] MEDS: ASPIRIN 81 MG ECTAB PO SCH (09:06)
[2021-05-28] MEDS: ATORVASTATIN 40 MG TAB PO SCH (09:06)
[2021-05-28] MEDS: GABAPENTIN 300 MG CAP PO SCH ×2 (09:07→13:50)
[2021-05-28] MEDS: METOPROLOL TARTRATE 25 MG TAB PO SCH (09:07)
[2021-05-28] MEDS: amLODIPine BESYLATE 5 MG TAB PO SCH (09:07)
[2021-05-28] MEDS: HEPARIN SOD 5,000 UNIT/0.5 ML VIAL SQ SCH (09:08)
[2021-05-28] MEDS: INSULIN ASPART PER UNIT SC SCH (09:12)
[2021-05-28] MEDS ORDERED: metFORMIN HCL 500 MG TAB PO SCH (10:00)
--- NOTE | 2021-05-28 15:08 | Discharge Summary ---
Date of Service May 28, 2021 Admission HPI Per Admitting Provider 71yo M w/ hx of HTN, CAD, HLD, and chronic back pain who presents with confusion and incontinence at home. His daughter reports that he was in his room, yelling at no one last night, saying things like "I won't go!" He got his medications and went to bed. This morning, he was again confused. He refused his pills, and then went out to the kitchen table and just wiped it for about 20 minutes. He had an episode of incontinence and did not even realize it. He was brought in for this reason. At beside, he is alert and awake. He is oriented to himself and time. Per his , he is now back to himself, and he can give me a general ROS, though he cannot explain his actions this morning. In the ER, bladder scan reveals >700 mL remaining in his bladder, and Cordova catheter was ordered. The patient's daughter reports that he has had urinary retention in the past, and has even had a Cordova in long-term previously. She states that it has always been taken out, and he's done well. Discharge Data Allergies Allergy/AdvReac Type Severity Reaction Status Date / Time rosuvastatin AdvReac Severe Myalgia Verified 05/26/21 07:53 Consultations 05/26/21 09:09 ED Decision to Admit Stat Ordered Studies 05/26/21 06:56 CT head/brain wo con Stat IMPRESSION: There is no hemorrhage, mass effect, or evidence of acute territorial ischemia by CT criteria. Hospital Course (1) Acute metabolic encephalopathy: Likely due to his hyponatremia, LYUBOV, and accidental medication overdose (from none of his meds being adjusted for that kidney function). Does have leukocytosis, but infectious work-up negative so far with normal CXR, normal UA, and no other focal signs/symptoms of infection. - Held all sedating/confusing meds apart from oxycodone PRN. - Correct sodium: improved to 131 - Per family, he is at his baseline. -will restart gabapentin and baclofen and monitor how patient tolerates these meds. -these meds will be decreased by half however. -Gabapentin will be 300 mg TID and baclofen will be 10 mg PRN -Patient is requiring home PT, and family would like patient to stay an additional day until this is arranged. (2) LYUBOV (acute kidney injury): Baseline Cr is ~0.9. Cr on admission was 1.6. I think likely due to retention as he had 800 mL PVR. - Monitor now that Cordova is in place. -may considr trial prior to discharge, creatinine improved. (3) BPH with obstruction/lower urinary tract symptoms: As noted in H&P HPI, daughter reports multiple episodes of retention that resolve after acute issue has resolved (eg UTI). - May need d/c with Cordova in place with o/p urology f/u. depnding on if patient is able to void. Patient and family were amenable to this. - Continue tamsulosin (4) Weakness: Due to polypharmacy, urinary retention, and LYUBOV. - PT/OT (5) Polypharmacy: Is on OxyContin, oxycodone, and gabapentin for his lower back pain. Daughter was asking about tapering these medications. - Stopped OxyContin, baclofen, and gabapentin on admission. So far, patient is comfortable without them. - Continue oxycodone -will resume gabapentin and baclofen at lower doses and monitor patient. - I told daughter that stopping everything all at once was not safe. She will go with father to PCP appointment to discuss tapering medications. (6) CAD (coronary artery disease), [place] coronary artery: STEMI status post RCA PCI in 10/2020. No chest pain on admission. - Continue DAPT: ASA/Plavix - Continue beta-vaibhav - Hold ACEi until LYUBOV resolved. (7) Hypertension: BP initially low in the ER, but now up to 180/75 this evening. - Continue metoprolol and amlodipine - Restart lisinopril once LYUBOV resolves. (8) Chronic back pain: As above with polypharmacy. - Continue home oxycodone PRN (though per notes, patient takes it TID regardless) - Hold gabapentin, baclofen, and OxyContin - Hold meloxicam for LYUBOV (9) DM2 (diabetes mellitus, type 2): A1c was 6.7% in 10/2020. - Hold metformin - Sliding scale insulin - Recheck A1c in AM (10) Obstructive sleep apnea: Has not used CPAP in months. - Encourage use at home - Can use CPAP in hospital as desired. (11) DVT prophylaxis: Heparin 5,000 units SQ Q12h Discharge Plan Discharge Items Patient Disposition: Home - Home Health Services Reason For Visit: CONFUSION, HYPONATERMIA Discharge Diagnosis: Confusion Low sodium Polypharmacy Activity: Resume your previous activity Non-emergency contact: Primary Care Provider Call non-emergency contact if: you have any medication questions Follow-up/Referrals: Loy Browning III, CRNP [Primary Care Provider] - 06/04/21 2:40 pm Diet: Carb Consistent or DM2 Addtl Attending Provider Instructions: You have been hospitalized for an acute confusion. During your stay at [facility], we have made an effort to correct the problem that brought you to the hospital while keeping you as comfortable as possible. We decreased medications to help bring your condition under control and your discharge instructions will include directions. Please make sure you see your Primary Care Provider as part of your follow up plan. Only take baclofen as needed. Do not take every 8 hours. Also recommend cutting it back to 10 mg. Oxycontin (oxymorphone) was discontinued Gabapentin, also reduced to 300 mg three times a day. Recommend close followup with PCP to discuss further changes to medications Pending Studies at Discharge: No Stand-Alone Forms: My [facility], Smoking Cessation Medications and DC Order Prescriptions: Continued acetaminophen 500 mg capsule 500 mg PO Q8H PRN (Reason: Pain) RF: 0 clopidogrel 75 mg tablet 75 mg PO QAM Qty: 90 RF: 3 atorvastatin 40 mg tablet 40 mg PO QAM Qty: 90 RF: 3 metformin 500 mg tablet 500 mg PO BID Qty: 180 RF: 1 lisinopril [Zestril] 5 mg tablet 5 mg PO QAM Qty: 90 RF: 1 metoprolol tartrate 25 mg tablet 25 mg PO BID Qty: 180 RF: 1 tamsulosin 0.4 mg capsule 0.4 mg PO HS Qty: 90 RF: 1 amlodipine 10 mg tablet 10 mg PO QAM Qty: 90 RF: 1 oxycodone 5 mg tablet 5 mg PO TID 30 Days Qty: 90 RF: 0 naloxone 4 mg/actuation spray,non-aerosol 1 spray intranasal Q3M PRN (Reason: OVER SEDATION) RF: 0 aspirin 81 mg Tablet,Delayed Release (Dr/Ec) 81 mg PO QAM Qty: 30 RF: 0 multivitamin Tablet 1 tab PO DAILY RF: 0 loratadine [Claritin] 10 mg Tablet 10 mg PO QAM PRN (Reason: Congestion) RF: 0 pantoprazole [Protonix] 40 mg tablet,delayed release (DR/EC) See Rx Instructions .ROUTE .COMPLEX Qty: 48 RF: 0 Changed gabapentin 600 mg tablet 300 mg PO TID Qty: 360 RF: 0 baclofen 20 mg tablet 10 mg PO TID PRN (Reason: muscle spasm) Qty: 270 RF: 0 Discontinued oxymorphone 30 mg tablet extended release 12 hr 30 mg PO BID 30 Days Qty: 60 RF: 0 No Action meloxicam 15 mg tablet 15 mg PO QAM Qty: 90 RF: 3 Discharge Orders: Discharge Order (Routine); Ordered 05/28/21 Ordered By: Say Pimentel/Other Patient Handouts: Managing Type 2 Diabetes Admission Data Admit Date/Time: 05/26/21 09:12 Attending Provider: Say Steele Admit Provider: Tres Proctor Primary Care Provider: Loy Browning III Other Providers: Tres Proctor ; [facility] Other Interventions: Discharge Summary Assessment (RN) Last Done: 05/28/21 15:09 Coding Diagnoses Acute metabolic encephalopathy G93.41 LYUBOV (acute kidney injury) N17.9 BPH with obstruction/lower urinary tract symptoms N40.1; N13.8 Weakness R53.1 Polypharmacy Z79.899 CAD (coronary artery disease), [place] coronary artery I25.10 Hypertension I10 Hypertension type: essential hypertension Chronic back pain M54.5; G89.29 Back pain laterality: midline Back pain location: low back pain Sciatica presence: without sciatica DM2 (diabetes mellitus, type 2) E11.9 Obstructive sleep apnea G47.33 DVT prophylaxis Z29.9
[2021-05-28] MEDS: oxyCODONE HCL IR 5 MG TAB (IMMEDIATE RELEASE) PO PRN (15:34)
[2021-05-29] MEDS ORDERED: MULTIVITAMIN TAB PO SCH (09:00)
== END 2021-05-28 17:15 | disposition home health service (06) | DRG 917 ==
LOC: ED 05:44 → 3N 09:12 → SUATTDRO 09:12 → 3N 11:06

== ENCOUNTER 2022-04-17 20:51 | Inpatient (IN) ==
[2022-04-17 21:55] LABS: Appearance Urine Clear (Clear); Bacteria Urine Automated Negative (Negative); Bilirubin Urine Negative (Negative); Blood Urine Negative (Negative); Cast Urine Automated 0 /lpf (0-5); Color Urine Yellow; Glucose Urine UA Trace (Negative); Ketones Urine Trace (Negative); Leukocyte Esterase Urine Negative (Negative); Nitrite Urine Negative (Negative); Protein Urine Trace (Negative); RBC Urine Automated 0-4 /hpf (0-4); Specific Gravity Urine 1.018 (1.000-1.030); Urobilinogen Urine Negative (Negative); WBC Urine Automated 0 /hpf (0-5); pH Urine 6.5 (4.5-7.5)
[2022-04-17] MEDS ORDERED: SODIUM CHLORIDE 0.9% 1000ML 1,000 ML IV ONE (22:10)
[2022-04-17] MEDS ORDERED: ACETAMINOPHEN 1,000 MG/100 ML VIAL IV STA (22:10)
--- NOTE | 2022-04-17 22:14 | Emergency Department Note ---
Impression & Plan COVID-19, Hypoxia, Acute confusion, Acute dehydration, Syncope and collapse ED Provider Note Name: RED VILLARREAL Age: 72 Sex: M Arrives Via: Ambulance Informant: Patient (poor historian), EMS, daughter ED Provider: Luis Kingsley MD Chief Complaint: Syncope Impression: As per impressions above Medical Decision Makin-year-old gentleman with extensive past medical history arrives for evaluation following a syncopal episode at home. On arrival he is febrile, tachycardic, altered. Concern for sepsis and thus sepsis work-up initiated. He was given an initial bolus of 1 L IV fluids. He was sent to CT scan for the head following a syncope which is fortunately negative. Labs are remarkable for mild hyponatremia which is stable for the patient mild hyperkalemia of uncertain etiology and moderate hyperglycemia. Initially assumed that this was urosepsis and thus given some cefepime as well. That said COVID testing ended up testing positive. His examination he is mildly hypoxic he is confused he is febrile and he is having syncopal events he clearly requires hospitalization. He does not seem to be breathing difficulty his chest x-ray is okay and he otherwise looks all right. I think holding off on CT imaging of the chest at this time is reasonable as syncope seems more likely related to his viral infection and then a PE or dissection. Hospitalist was consulted for further management. Prior Medical Record and Triage/Nursing Notes reviewed by Me Extensive external record review including previous hospitalizations and discharge summaries. Differentials:Sepsis, COVID, pneumonia, intracranial hemorrhage, ACS, cardiac arrhythmia, PE, tox, multiple other pathologies considered Vital Signs: reviewed and remarkable for tachycardia, febrile, tachypneic Interventions: Normal saline bolus 1 L IV, Tylenol IV, cefepime IV, Decadron 10 mg IV Labs:Reviewed and remarkable for positive COVID, elevated glucose Imagin view chest x-ray interpreted by me no acute lobar infiltrate nor significant effusion or congestive findings Cardiac/Tele Monitoring: Cardiac Monitoring: An Order was placed for continuous cardiac monitoring. The monitor shows a rate of 100 with a normal sinus rhythm. Consults:Dr Kin JAMES Hospitalist Plan: Disposition:Hospitalization. Condition: Fair History of Present Illness: 72-year-old gentleman arrives for evaluation of illness. Patient with fatigue mild confusion no appetite throughout the day today. He collapsed on the floor this evening. He was bit sweaty and confused after the collapse. No known head injury but he was laying on the floor. He se ems significantly confused from his baseline. He feels warm. No vomiting, shortness of breath, change in ostomy outs, urinary burning, rashes, leg swelling or other concerning signs or symptoms. Nothing makes better or worse. No medications prior to arrival. Patient had a similar episode happened about a year ago due to electrolyte imbalance. His is currently ill at home with an upper respiratory infection. Past History:See Below Home Medications:See Below Allergies:rosuvastatin Vitals:Blood Pressure: 147/98, Pulse 127, RR 20, T 37.9C, O2 92% on RA Physical Exam: GENERAL: Patient is ill appearing and in mild distress. Confused, dehydrated a ppearing EYES: No scleral icterus, unremarkable pupils. ENT: Mucous membranes dry, no nasal congestion. Chewing tobacco in mouth RESPIRATORY: Diffuse crackles with bilateral breath sounds equal CARDIOVASCULAR: Tachy.No murmurs, rubs, gallops appreciated. GASTROINTESTINAL: Ostomy left lower abdomen, Abdomen soft, non-tender, no peritonitis. EXTREMITIES: Normal motion all extremities, no cyanosis, no edema. NEUROLOGIC: Confused answers simple sentences mildly encephalopathic. No focal neurologic deficit appreciated. SKIN: No rash, no jaundice, no diaphoresis. PSYCH: Appropriate GCS: 15 ED Course: Times/Reassessments: Multiple repeat evaluations patient does appear much better after initial liter of fluid. Given his COVID-positive we will hold off on further fluids he was given Decadron IV as well. Daughter at bedside and discussing findings with her. Luis Kingsley MD Past Med/Surg History Medical History Acute upper gastrointestinal bleeding LYUBOV (acute kidney injury) Anxiety disorder BPH with obstruction/lower urinary tract symptoms CAD (coronary artery disease), flandreau coronary artery Cervical fusion syndrome Chronic back pain DM2 (diabetes mellitus, type 2) Hypertension Hyponatremia Hypoxia Metabolic acidosis Obstructive sleep apnea Osteoarthritis Peripheral neuropathy Postlaminectomy syndrome of lumbosacral region SBO (small bowel obstruction) ST elevation (STEMI) myocardial infarction Statin myopathy Syncope Thumb pain Transaminitis Surgical History H/O inguinal hernia repair H/O resection of rectum History of rectal surgery Previous back surgery S/P cervical spinal fusion S/P drug eluting coronary stent placement S/P PTCA (percutaneous transluminal coronary angioplasty) S/P tonsillectomy and adenoidectomy Family History Father Cardiovascular disease Cardiac disorder Prostate cancer Mother Dementia Diabetes Other Hypertension No significant family history Denies family history of Ovarian cancer Myocardial infarction Breast cancer Colorectal cancer Social History Smoking Status: Never smoker Tobacco Type: Smokeless Tobacco (Dip or Chew) Age Started Using Tobacco: 17; Age Quit Using Tobacco: 24; packs per day: 1; Cigarettes Per Day: 20; Second Hand Exposure: No; Hx Alcohol Use: No Hx Substance Use: No Preferred Language: Yi Communication Ability: Effective Visual Impairment: No Limitations Hearing Ability: Normal Conventional Machinist Required: No Beliefs That Will Affect Care: None marital status: Current Living Situation: Spouse current occupational status: retired How many Children do You have: 4 Feels Safe at Home: Yes Childhood Exposure to Second-Hand Smoke: No caffeine: Yes during the past year weight has: remained stable Dental Care, Regularly: No Physical Activity Frequency: Daily Seatbelt Use: always Sunscreen Use: No Assistive Devices: Glasses Allergies Allergies Allergy/AdvReac Type Severity Reaction Status Date / Time rosuvastatin AdvReac Severe Myalgia Verified 04/18/22 00:40 Home Meds Home Medications Medication Instructions Recorded Confirmed acetaminophen 500 mg capsule 500 mg PO Q8H PRN Pain 10/12/20 04/18/22 naloxone 4 mg/actuation nasal spray 1 spray intranasal Q3M PRN OVER 12/19/20 04/18/22 SEDATION loratadine 10 mg tablet (Claritin) 10 mg PO QAM PRN Congestion 04/19/21 04/18/22 multivitamin 1 tab PO DAILY 04/19/21 04/18/22 gabapentin 600 mg tablet 300 mg PO QID Unknown 09/20/21 04/18/22 Previous Rx's Medication Instructions Recorded aspirin 81 mg tablet,delayed 81 mg PO QAM #30 tabs 11/05/20 release atorvastatin 40 mg tablet 40 mg PO QAM #90 tabs 11/23/21 baclofen 20 mg tablet See Rx Instructions .Route 12/03/21 .COMPLEX #180 tabs metformin 500 mg tablet See Rx Instructions .Route 01/17/22 .COMPLEX #180 tabs metoprolol succinate 25 mg 25 mg PO DAILY #90 tabs 01/17/22 tablet,extended release 24 hr amlodipine 10 mg tablet 10 mg PO QAM #90 tabs 02/16/22 tamsulosin 0.4 mg capsule 0.4 mg PO HS #90 caps 03/02/22 oxycodone 5 mg tablet 5 mg PO BID Pain 30 days #60 tabs 03/28/22 oxymorphone 30 mg tablet,extended 30 mg PO BID #60 tabs 03/28/22 release,12 hr Results & Data (ED) Vital Signs Vital Signs - 24 hr 04/17/22 21:09 04/17/22 21:15 04/17/22 21:15 Temperature 37.9 C H Temperature Source Oral Pulse Rate 127 H Pulse Rate [Right Finger] 127 H Pulse Rate from SpO2 Sensor Respiratory Rate Blood Pressure 147/98 H Blood Pressure [Right Arm] 147/98 H Blood Pressure Mean 114 Blood Pressure Mean [Right Arm] 114 Pulse Oximetry 92 93 Oxygen Delivery Method Room Air Room Air Room Air Sepsis Recent Fever Within 48 Hours Yes Sepsis New/Unexplained Change in Mental Status Yes Sepsis Action Taken by Nursing No Action Required Oxygen Flow Rate - Titration Pulse Oximetry Post Tiitration 92 04/17/22 21:55 04/17/22 21:18 04/17/22 21:30 Temperature Temperature Source Pulse Rate 126 H 127 H Pulse Rate [Right Finger] Pulse Rate from SpO2 Sensor 126 H 127 H Respiratory Rate 24 22 Blood Pressure Blood Pressure [Right Arm] Blood Pressure Mean Blood Pressure Mean [Right Arm] Pulse Oximetry 94 93 92 Oxygen Delivery Method Room Air Sepsis Recent Fever Within 48 Hours Sepsis New/Unexplained Change in Mental Status Sepsis Action Taken by Nursing Oxygen Flow Rate - Titration Pulse Oximetry Post Tiitration 04/17/22 22:00 04/17/22 22:21 04/17/22 22:21 Temperature Temperature Source Pulse Rate 123 H 126 H Pulse Rate [Right Finger] Pulse Rate from SpO2 Sensor 123 H 120 H Respiratory Rate 22 22 Blood Pressure 143/84 H Blood Pressure [Right Arm] Blood Pressure Mean 103 Blood Pressure Mean [Right Arm] Pulse Oximetry 86 L 95 Oxygen Delivery Method Sepsis Recent Fever Within 48 Hours Sepsis New/Unexplained Change in Mental Status Sepsis Action Taken by Nursing Oxygen Flow Rate - Titration Pulse Oximetry Post Tiitration 04/17/22 22:30 04/17/22 22:30 04/17/22 23:20 Temperature Temperature Source Pulse Rate 118 H 113 H Pulse Rate [Right Finger] Pulse Rate from SpO2 Sensor 118 H Respiratory Rate 22 25 H Blood Pressure 139/84 151/90 H Blood Pressure [Right Arm] Blood Pressure Mean 102 110 Blood Pressure Mean [Right Arm] Pulse Oximetry 95 Oxygen Delivery Method Sepsis Recent Fever Within 48 Hours Sepsis New/Unexplained Change in Mental Status Sepsis Action Taken by Nursing Oxygen Flow Rate - Titration Pulse Oximetry Post Tiitration 04/17/22 22:00 04/17/22 23:21 04/17/22 23:21 Temperature Temperature Source Pulse Rate 112 H Pulse Rate [Right Finger] Pulse Rate from SpO2 Sensor 111 H Respiratory Rate 16 Blood Pressure 151/90 H Blood Pressure [Right Arm] Blood Pressure Mean 110 Blood Pressure Mean [Right Arm] Pulse Oximetry 87 L 95 Oxygen Delivery Method Room Air Sepsis Recent Fever Within 48 Hours Sepsis New/Unexplained Change in Mental Status Sepsis Action Taken by Nursing Oxygen Flow Rate - Titration 2 Pulse Oximetry Post Tiitration 96 04/17/22 23:30 04/17/22 23:30 04/17/22 23:40 Temperature Temperature Source Pulse Rate 114 H 113 H Pulse Rate [Right Finger] Pulse Rate from SpO2 Sensor 111 H 116 H Respiratory Rate 22 18 Blood Pressure 132/82 Blood Pressure [Right Arm] Blood Pressure Mean 98 Blood Pressure Mean [Right Arm] Pulse Oximetry 94 96 Oxygen Delivery Method Sepsis Recent Fever Within 48 Hours Sepsis New/Unexplained Change in Mental Status Sepsis Action Taken by Nursing Oxygen Flow Rate - Titration Pulse Oximetry Post Tiitration 04/17/22 23:50 04/18/22 00:00 04/18/22 00:00 Temperature Temperature Source Pulse Rate 110 H 110 H Pulse Rate [Right Finger] Pulse Rate from SpO2 Sensor 110 H 114 H Respiratory Rate 16 13 Blood Pressure 146/84 H Blood Pressure [Right Arm] Blood Pressure Mean 104 Blood Pressure Mean [Right Arm] Pulse Oximetry 95 94 Oxygen Delivery Method Sepsis Recent Fever Within 48 Hours Sepsis New/Unexplained Change in Mental Status Sepsis Action Taken by Nursing Oxygen Flow Rate - Titration Pulse Oximetry Post Tiitration 04/18/22 00:10 04/18/22 00:20 Temperature Temperature Source Pulse Rate 112 H 113 H Pulse Rate [Right Finger] Pulse Rate from SpO2 Sensor Respiratory Rate 20 29 H Blood Pressure Blood Pressure [Right Arm] Blood Pressure Mean Blood Pressure Mean [Right Arm] Pulse Oximetry Oxygen Delivery Method Sepsis Recent Fever Within 48 Hours Sepsis New/Unexplained Change in Mental Status Sepsis Action Taken by Nursing Oxygen Flow Rate - Titration Pulse Oximetry Post Tiitration Laboratory Data 04/17/22 21:05 04/17/22 21:05 Lab Results 04/17/22 04/17/22 04/17/22 Range/Units 21: 21: 21: WBC 9.47 (4.8-10.8) K/ul RBC 4.87 (4.70-6.10) M/uL Hgb 14.3 (14.0-18.0) g/dl Hct 41.6 L (42.0-52.0) % MCV 85.4 (80.0-100.0) fL MCH 29.4 (25.0-34.0) pg MCHC 34.4 (32.0-36.0) g/dL RDW Std Deviation 36.9 (36.4-46.3) fL RDW Coeff of Arturo 11.9 (11.5-14.5) % Plt Count 167 (130-400) K/uL MPV 10.2 (9.4-12.4) fL Immature Gran % (Auto) 0.6 % Neut % (Auto) 88.6 % Lymph % (Auto) 3.3 % Meigs % (Auto) 7.2 % Eos % (Auto) 0.1 % Baso % (Auto) 0.2 % Neut # (Auto) 8.39 H (1.40-6.50) K/uL Lymph # (Auto) 0.31 L (1.2-3.4) K/uL Meigs # (Auto) 0.68 H (0.11-0.59) K/uL Eos # (Auto) 0.01 (0-0.50) K/uL Baso # (Auto) 0.02 (0-0.2) K/uL Immature Gran # (Auto) 0.06 (0.01-0.20) K/uL PT 10.8 (9.0-12.0) Seconds INR 1.0 (0.9-1.1) APTT 28.4 (21.0-31.0) Seconds PTT Ratio 1.0 Sodium 128 L (136-145) mmol/L Potassium 5.2 H (3.5-5.1) mmol/L Chloride 95 L (98-107) mmol/L Carbon Dioxide 27 (21-32) mmol/L Anion Gap 6 (3-11) BUN 17 (6-23) mg/dl Creatinine 1.26 (0.6-1.4) mg/dl Est Cr Clr Drug Dosing 60.2 ml/min Est GFR ( Amer) 65.2 ml/min Est GFR (Non-Af Amer) 56.2 ml/min BUN/Creatinine Ratio 13.5 (10-20) Glucose 209 H (70-99(Fasting)) mg/dl Calcium 8.8 (8.5-10.1) mg/dl Magnesium 1.8 (1.7-2.4) mg/dl Total Bilirubin 0.7 (0.2-1.0) mg/dl AST 26 (13-39) U/L ALT 25 (7-52) U/L Alkaline Phosphatase 87 (34-104) U/L Total Protein 7.3 (6.0-8.3) gm/dl Albumin 4.3 (3.4-5.0) gm/dl Globulin 3.0 (2.5-4.0) gm/dl Albumin/Globulin Ratio 1.4 (0.9-2) Urine Color Urine Appearance (Clear) Urine pH (4.5-7.5) Ur Specific Bivins (1.000-1.030) Urine Protein (Negative) Urine Glucose (UA) (Negative) Urine Ketones (Negative) Urine Blood (Negative) Urine Nitrite (Negative) Urine Bilirubin (Negative) Urine Urobilinogen (Negative) Ur Leukocyte Esterase (Negative) Urine WBC (Auto) (0-5) /hpf Urine RBC (Auto) (0-4) /hpf U Hyaline Cast (Auto) (0-5) /lpf U Epithel Cells (Auto) (0-5) /lpf Urine Bacteria (Auto) (Negative) SARS-CoV-2 (PCR) (Negative) Influenza Type A (PCR) (Neg) Influenza Type B (PCR) (Neg) RSV (RT-PCR) (Neg) 04/17/22 04/17/22 Range/Units 21:30 22:25 WBC (4.8-10.8) K/ul RBC (4.70-6.10) M/uL Hgb (14.0-18.0) g/dl Hct (42.0-52.0) % MCV (80.0-100.0) fL MCH (25.0-34.0) pg MCHC (32.0-36.0) g/dL RDW Std Deviation (36.4-46.3) fL RDW Coeff of Arturo (11.5-14.5) % Plt Count (130-400) K/uL MPV (9.4-12.4) fL Immature Gran % (Auto) % Neut % (Auto) % Lymph % (Auto) % Meigs % (Auto) % Eos % (Auto) % Baso % (Auto) % Neut # (Auto) (1.40-6.50) K/uL Lymph # (Auto) (1.2-3.4) K/uL Meigs # (Auto) (0.11-0.59) K/uL Eos # (Auto) (0-0.50) K/uL Baso # (Auto) (0-0.2) K/uL Immature Gran # (Auto) (0.01-0.20) K/uL PT (9.0-12.0) Seconds INR (0.9-1.1) APTT (21.0-31.0) Seconds PTT Ratio Sodium (136-145) mmol/L Potassium (3.5-5.1) mmol/L Chloride (98-107) mmol/L Carbon Dioxide (21-32) mmol/L Anion Gap (3-11) BUN (6-23) mg/dl Creatinine (0.6-1.4) mg/dl Est Cr Clr Drug Dosing ml/min Est GFR ( Amer) ml/min Est GFR (Non-Af Amer) ml/min BUN/Creatinine Ratio (10-20) Glucose (70-99(Fasting)) mg/dl Calcium (8.5-10.1) mg/dl Magnesium (1.7-2.4) mg/dl Total Bilirubin (0.2-1.0) mg/dl AST (13-39) U/L ALT (7-52) U/L Alkaline Phosphatase (34-104) U/L Total Protein (6.0-8.3) gm/dl Albumin (3.4-5.0) gm/dl Globulin (2.5-4.0) gm/dl Albumin/Globulin Ratio (0.9-2) Urine Color Yellow Urine Appearance Clear (Clear) Urine pH 6.5 (4.5-7.5) Ur Specific Bivins 1.018 (1.000-1.030) Urine Protein Trace H (Negative) Urine Glucose (UA) Trace H (Negative) Urine Ketones Trace H (Negative) Urine Blood Negative (Negative) Urine Nitrite Negative (Negative) Urine Bilirubin Negative (Negative) Urine Urobilinogen Negative (Negative) Ur Leukocyte Esterase Negative (Negative) Urine WBC (Auto) 0 (0-5) /hpf Urine RBC (Auto) 0-4 (0-4) /hpf U Hyaline Cast (Auto) 0 (0-5) /lpf U Epithel Cells (Auto) 5-10 H (0-5) /lpf Urine Bacteria (Auto) Negative (Negative) SARS-CoV-2 (PCR) POSITIVE A* (Negative) Influenza Type A (PCR) Negative (Neg) Influenza Type B (PCR) Negative (Neg) RSV (RT-PCR) Negative (Neg) Administered Medications Discontinued Medications Dexamethasone Sodium Phosphate (DexamethasonePf 10 Mg/Ml Vial) 10 mg IV NOW ONE Stop: 04/17/22 23:32 Last Admin: 04/17/22 23:48 Dose: 10 mg Documented By: [facility] Sodium Chloride (Nss 1000ml) 1,000 mls @ 999 mls/hr IV .Q1H1M ONE Stop: 04/17/22 23:10 Last Infusion: 04/17/22 23:18 Dose: 0 mls/hr Documented By: Admin: 04/17/22 22:21 Dose: 999 mls/hr Documented By: SAKINA Acetaminophen (Ofirmev) 1,000 mg in 100 mls @ 400 mls/hr IV NOW STA Stop: 04/17/22 22:24 Last Infusion: 04/17/22 23:18 Dose: 0 mls/hr Documented By: Admin: 04/17/22 22:21 Dose: 400 mls/hr Documented By: SAKINA Cefepime HCl (Maxipime) 2,000 mg in 20 mls @ 5 mls/min IV NOW STA; Protocol Stop: 04/17/22 22:41 Last Admin: 04/17/22 23:18 Dose: 5 mls/min Documented By: SAKINA Discharge Plan Visit Data Chief Complaint: Confusion Stated Complaint: NEAR SYNCOPAL ED Provider: Luis Kingsley Discharge Problem: COVID-19, Hypoxia, Acute confusion, Acute dehydration, Syncope and collapse Forms Stand Alone Forms: My [facility] [employer] Prescriptions Prescriptions: No Action acetaminophen 500 mg capsule 500 mg PO Q8H PRN (Reason: Pain) atorvastatin 40 mg tablet 40 mg PO QAM Qty: 90 3RF baclofen 20 mg tablet See Rx Instructions .ROUTE .COMPLEX Qty: 180 1RF Dose Instruction: TAKE 1 TABLET BY MOUTH TWICE A DAY NEEDED FOR MUSCLE SPASM Rx Instructions: TAKE 1 TABLET BY MOUTH TWICE A DAY NEEDED FOR MUSCLE SPASM metformin 500 mg tablet See Rx Instructions .ROUTE .COMPLEX Qty: 180 3RF Dose Instruction: TAKE 1 TABLET TWICE A DAY Rx Instructions: TAKE 1 TABLET TWICE A DAY metoprolol succinate 25 mg tablet extended release 24 hr 25 mg PO DAILY Qty: 90 1RF amlodipine 10 mg tablet 10 mg PO QAM Qty: 90 1RF tamsulosin 0.4 mg capsule 0.4 mg PO HS Qty: 90 3RF gabapentin 600 mg tablet 300 mg PO QID oxycodone 5 mg tablet 5 mg PO BID 30 Days Qty: 60 0RF oxymorphone 30 mg tablet extended release 12 hr 30 mg PO BID Qty: 60 0RF naloxone 4 mg/actuation spray,non-aerosol 1 spray intranasal Q3M PRN (Reason: OVER SEDATION) Rx Instructions: spray 1 dose into ONE nostril; alternate nostrils w each dose until help arrives aspirin 81 mg Tablet,Delayed Release (Dr/Ec) 81 mg PO QAM Qty: 30 0RF Rx Instructions: OTC multivitamin Tablet 1 tab PO DAILY loratadine [Claritin] 10 mg Tablet 10 mg PO QAM PRN (Reason: Congestion) Referrals Referrals: Loy Browning III, CRNP [Primary Care Provider] -
[2022-04-17 22:23] LABS: Basophils # (auto) 0.02 K/uL (0-0.2); Basophils % (auto) 0.2 %; Eosinophils # (auto) 0.01 K/uL (0-0.50); Eosinophils % (auto) 0.1 %; Hematocrit (blood only) 41.6 % (42.0-52.0); Hemoglobin 14.3 g/dl (14.0-18.0); Immature Granulocytes # (auto) 0.06 K/uL (0.01-0.20); Immature Granulocytes % (auto) 0.6 %; Lymphocytes # (auto) 0.31 K/uL (1.2-3.4); Lymphocytes % (auto) 3.3 %; Mean Corpuscular Hemoglobin 29.4 pg (25.0-34.0); Mean Corpuscular Hgb Conc 34.4 g/dL (32.0-36.0); Mean Corpuscular Volume 85.4 fL (80.0-100.0); Mean Platelet Volume 10.2 fL (9.4-12.4); Monocytes # (auto) 0.68 K/uL (0.11-0.59); Monocytes % (auto) 7.2 %; Neutrophils # (auto) 8.39 K/uL (1.40-6.50); Neutrophils % (auto) 88.6 %; Platelet Count 167 K/uL (130-400); RDW Coefficient of Variation 11.9 % (11.5-14.5); RDW Standard Deviation 36.9 fL (36.4-46.3); Red Blood Count 4.87 M/uL (4.70-6.10); White Blood Count 9.47 K/ul (4.8-10.8)
[2022-04-17 22:24] LABS: Partial Thromboplastin Time 28.4 Seconds (21.0-31.0); Prothrombin Time 10.8 Seconds (9.0-12.0)
[2022-04-17 22:26] LABS: Albumin Globulin Ratio 1.4 (0.9-2); Albumin Level 4.3 gm/dl (3.4-5.0); BUN Creatinine Ratio 13.5 (10-20); Bilirubin,Total 0.7 mg/dl (0.2-1.0); Calcium 8.8 mg/dl (8.5-10.1); Creatinine Clr Calc Pharmacy 60.2 ml/min; Est GFR (African American) 65.2 ml/min; Est GFR (Non-African American) 56.2 ml/min; Magnesium 1.8 mg/dl (1.7-2.4); Potassium 5.2 mmol/L (3.5-5.1); Total Protein 7.3 gm/dl (6.0-8.3)
[2022-04-17] MEDS ORDERED: CEFEPIME 2,000 MG/20 ML VIAL IV STA (22:38)
[2022-04-17 23:18] LABS: Influenza A virus by PCR Negative (Neg); Influenza B virus by PCR Negative (Neg); RSV by PCR Negative (Neg)
[2022-04-17 23:22] LABS: SARS CoV2 RNA(COVID-19) Ceph POSITIVE (Negative)
[2022-04-17] MEDS ORDERED: dexAMETHasone**PF** 10 MG/ML VIAL IV ONE (23:31)
--- NOTE | 2022-04-18 00:35 | History & Physical Report ---
Date of Service April 18, 2022 Assessment & Plan (1) Confusion: Plan: Jere is a 72 year old male w/ PmHx CAD s/p PCI to proximal to mid RCA w/ single JOO 10/2020, BPH, HTN, T2DM, rectal cancer s/p colostomy, HARJEET admitted for confusion and covid+. Confusion: -WBC 9.47, hgb 14.3, Na around baseline, potassium mildly elevated at 5.2, glucose 209. -Hypoxic to 86-87% during ED visit, temp up to 37.9C. -CT Head w/o any acute findings. -CXR w/o overt cardiopulmonary findings -U/A w/ trace protein, glucose, ketones. -May be secondary to COVID infection vs other etiology. -Recieved one dose of Cefepime in the ED. -Started on remdesivir. Given 1 dose of 10mg Dexamethasone in ED. Continued 6mg IV dexamethasone daily for 10 days. -Started on Azithromycin 500mg day one followed by 250mg for 4 days for possible bacterial component. -Tylenol PRN for pain or fever. -PT/OT eval and treat for fall component. -Continue to monitor on med/tele CAD/Hx of HI: -Continue home atorvastatin, metporolol, ASA 81mg daily. T2DM: -Hold home metformin, placed on lantus 16U BID, SSI. -Continue home gabapentin for neuropathy. HTN: -Continue home metoprolol, amlodipine. Chronic lumbar pain: -Hold home opioid medications, muscle relaxers in case contributing to confusion. BPH: -Continue home tamsulosin Hx of malignant neoplasm of rectum: -No issues with colostomy or BM. Continue to monitor. DVT Prophylaxis: SCDs. F/E/N/GI: T2DM and heart healthy diet. Code status: Full code. Dispo: Med/tele. (2) Cervical fusion syndrome: (3) CAD (coronary artery disease), [place] coronary artery: (4) H/O malignant neoplasm of rectum: (5) Peripheral neuropathy: (6) BPH with obstruction/lower urinary tract symptoms: (7) DM2 (diabetes mellitus, type 2): (8) Chronic lumbar pain: (9) Hypertension: History of Present Illness Chief Complaint: Confusion Primary Care Provider: Loy Browning, III, [employer] Jere is a 72 year old male w/ PmHx CAD s/p PCI to proximal to mid RCA w/ single JOO 10/2020, BPH, HTN, T2DM, rectal cancer s/p colostomy, HARJEET coming in to the hospital for confusion earlier yesterday. Patient states that he was at home earlier yesterday when it was commented on by his family that he was acting more confused. He is unable to remember how he was more confused but relays that he was feeling more off balance and had a fall. He states that he was then brought in by ambulance to the hospital, still with some minor confusion but otherwise feeling fine. He denies any shortness of breath, chest pain, chest tightness, fevers, chills, abdominal pain, diarrhea, constipation, myalgia, congestion, rhinorrhea, cough, mucous production. Patient states that he had a colostomy for rectal cancer down in [place] 17 years ago although no recent abnormalities, discharge, or pain around the area. Patient states that he usually keeps well hydrated throughout the day with multiple glasses of water. 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 He states his did not come with him today as she wasn't feeling great herself. Per ED note patient was found on floor from fall. Patient had 2 doses of Moderna COVID vaccines but no booster shots. In the ED he was found to have a WBC count of 9.47, hgb 14.3, platelet 167, PT/INR WNL, sodium 128, potassium 5.2, chloride 95, BUN 17, Creatinine 1.26, LFT's WNL. CT of the head was without any acute abnormalities. CXR w/ mild interstital markings otherwise clear and w/o cardiomegaly. Allergies Allergy/AdvReac Type Severity Reaction Status Date / Time rosuvastatin AdvReac Severe Myalgia Verified 04/18/22 00:40 Home Medications Medication Instructions Recorded Confirmed Type acetaminophen 500 mg capsule 500 mg PO Q8H PRN Pain 10/12/20 04/18/22 History aspirin 81 mg tablet,delayed 81 mg PO QAM #30 tabs 11/05/20 04/18/22 Rx release naloxone 4 mg/actuation nasal spray 1 spray intranasal Q3M PRN OVER 12/19/20 04/18/22 History SEDATION loratadine 10 mg tablet (Claritin) 10 mg PO QAM PRN Congestion 04/19/21 04/18/22 History multivitamin 1 tab PO DAILY 04/19/21 04/18/22 History gabapentin 600 mg tablet 300 mg PO QID Unknown 09/20/21 04/18/22 History atorvastatin 40 mg tablet 40 mg PO QAM #90 tabs 11/23/21 04/18/22 Rx baclofen 20 mg tablet See Rx Instructions .Route 12/03/21 04/18/22 Rx .COMPLEX #180 tabs metformin 500 mg tablet See Rx Instructions .Route 01/17/22 04/18/22 Rx .COMPLEX #180 tabs metoprolol succinate 25 mg 25 mg PO DAILY #90 tabs 01/17/22 04/18/22 Rx tablet,extended release 24 hr amlodipine 10 mg tablet 10 mg PO QAM #90 tabs 02/16/22 04/18/22 Rx tamsulosin 0.4 mg capsule 0.4 mg PO HS #90 caps 03/02/22 04/18/22 Rx oxycodone 5 mg tablet 5 mg PO BID Pain 30 days #60 tabs 03/28/22 04/18/22 Rx oxymorphone 30 mg tablet,extended 30 mg PO BID #60 tabs 03/28/22 04/18/22 Rx release,12 hr Past Med/Surg History Medical History Acute upper gastrointestinal bleeding LYUBOV (acute kidney injury) Anxiety disorder BPH with obstruction/lower urinary tract symptoms CAD (coronary artery disease), [place] coronary artery Cervical fusion syndrome Chronic back pain DM2 (diabetes mellitus, type 2) Hypertension Hyponatremia Hypoxia Metabolic acidosis Obstructive sleep apnea Osteoarthritis Peripheral neuropathy Postlaminectomy syndrome of lumbosacral region SBO (small bowel obstruction) ST elevation (STEMI) myocardial infarction Statin myopathy Syncope Thumb pain Transaminitis Surgical History H/O inguinal hernia repair H/O resection of rectum History of rectal surgery Previous back surgery S/P cervical spinal fusion S/P drug eluting coronary stent placement S/P PTCA (percutaneous transluminal coronary angioplasty) S/P tonsillectomy and adenoidectomy Family History Father Cardiovascular disease Cardiac disorder Prostate cancer Mother Dementia Diabetes Other Hypertension No significant family history Denies family history of Ovarian cancer Myocardial infarction Breast cancer Colorectal cancer Social History Smoking Status: Never smoker Tobacco Type: Smokeless Tobacco (Dip or Chew) Age Started Using Tobacco: 17; Age Quit Using Tobacco: 24; packs per day: 1; Cigarettes Per Day: 20; Second Hand Exposure: No; Hx Alcohol Use: No Hx Substance Use: No Preferred Language: Serbian Communication Ability: Effective Visual Impairment: No Limitations Hearing Ability: Normal Improvement Engineer Required: No Beliefs That Will Affect Care: None marital status: Current Living Situation: Spouse current occupational status: retired How many Children do You have: 4 Feels Safe at Home: Yes Childhood Exposure to Second-Hand Smoke: No caffeine: Yes during the past year weight has: remained stable Dental Care, Regularly: No Physical Activity Frequency: Daily Seatbelt Use: always Sunscreen Use: No Assistive Devices: Glasses Review of Systems Review of Systems: As per HPI. Physical Exam Constitutional: WD/WN, vitals as above Eyes: PERRL, conjunctivae normal, anicteric sclerae Respiratory: normal respiratory effort, lungs clear to auscultation Cardiovascular: Rate/Rhythm: regular rhythm and + tachycardic Heart Sounds: normal S1, normal S2 and + murmur (II/ holosystolic murmur best heard at the L lower sternal border.) Gastrointestinal (Abdomen): normal bowel sounds, soft, nontender, no hepatosplenomegaly Colostomy in place w/o any erythema, discharge or bloody output. Psychiatric: A+Ox3, euthymic affect (Alert to person, place, year) Results & Data Results & Data ([facility]) Vital Signs (Past 12 Hours) Vital Signs Temp Pulse Pulse Resp BP BP Pulse Ox 04/18/22 00:20 113 H 29 H 04/18/22 00:10 112 H 20 04/18/22 00:00 110 H 13 94 04/18/22 00:00 146/84 H 04/17/22 23:50 110 H 16 95 04/17/22 23:40 113 H 18 96 04/17/22 23:30 114 H 22 94 04/17/22 23:30 132/82 04/17/22 23:21 151/90 H 04/17/22 23:21 112 H 16 95 04/17/22 22:00 87 L 04/17/22 23:20 113 H 25 H 151/90 H 04/17/22 22:30 118 H 22 95 04/17/22 22:30 139/84 04/17/22 22:21 143/84 H 04/17/22 22:21 126 H 22 95 04/17/22 22:00 123 H 22 86 L 04/17/22 21:30 127 H 22 92 04/17/22 21:18 126 H 24 93 04/17/22 21:55 94 04/17/22 21:15 127 H 147/98 H 93 04/17/22 21:15 04/17/22 21:09 37.9 C H 127 H 147/98 H 92 O2 Del Method 04/18/22 00:20 04/18/22 00:10 04/18/22 00:00 04/18/22 00:00 04/17/22 23:50 04/17/22 23:40 04/17/22 23:30 04/17/22 23:30 04/17/22 23:21 04/17/22 23:21 04/17/22 22:00 Room Air 04/17/22 23:20 04/17/22 22:30 04/17/22 22:30 04/17/22 22:21 04/17/22 22:21 04/17/22 22:00 04/17/22 21:30 04/17/22 21:18 04/17/22 21:55 Room Air 04/17/22 21:15 Room Air 04/17/22 21:15 Room Air 04/17/22 21:09 Room Air Resident Activity Tracking Resident Involvement: Resident Care Provided Care Provided: Adult Hospital Medicine (1) DM2 (diabetes mellitus, type 2) Diabetes mellitus complication detail: with cataract Diabetes mellitus complication status: with ophthalmic complications Diabetes mellitus chcf insulin use: without solution coordinator use Qualified Code(s): E11.36 - Type 2 diabetes mellitus with diabetic cataract (2) CAD (coronary artery disease), [place] coronary artery Associated angina: without angina [place] vs. transplanted heart: [place] heart Qualified Code(s): I25.10 - Atherosclerotic heart disease of [place] coronary artery without angina pectoris (3) Hypertension Hypertension type: primary hypertension Qualified Code(s): I10 - Essential (primary) hypertension
[2022-04-18] MEDS ORDERED: GLUCOSE 40% GEL 15 GM TUBE PO PRN (03:32)
[2022-04-18] MEDS ORDERED: DEXTROSE 50% 50 ML SYRINGE IV PRN (03:32)
[2022-04-18] MEDS ORDERED: CARBOHYDRATES FOR HYPOGLYCEMIA PO PRN (03:32)
[2022-04-18] MEDS ORDERED: GLUCAGON FOR INJ 1 MG VIAL SQ PRN (03:32)
[2022-04-18] MEDS ORDERED: GLUCOSE 10 TAB/TUBE PO PRN (03:32)
[2022-04-18] MEDS ORDERED: ACETAMINOPHEN 500 MG TAB PO PRN (03:44)
[2022-04-18] MEDS ORDERED: REMDESIVIR 200 MG in SODIUM CHLORIDE 0.9% 210 ML IV ONE (04:00)
[2022-04-18] MEDS ORDERED: AZITHROMYCIN 250 MG TAB PO ONE (04:00)
--- NOTE | 2022-04-18 07:35 | CT Scan Report ---
HEAD CT NONCONTRAST CT DOSE: 884.08 mGy.cm HISTORY: fall, confusion TECHNIQUE: Multiaxial CT images of the head were performed without the use of intravenous contrast. A utomated exposure control was utilized for this study. A dose lowering technique was utilized adheri ng to the principles of ALARA. Comparison: Head CT 05/26/2021. Findings: The paranasal sinuses and mastoid air cells are clear. The calvarium and skull base are int act. There is no mass, hematoma, midline shift, acute infarct. White matter hypodensity is nonspecifi c but suggestive of microvascular ischemic change. The ventricles and sulci demonstrate mild age-rela arabella involutional changes. There is an old punctate lacunar infarct within the left basal ganglia, unc hanged. Impression: No significant change compared to the prior study. No acute intracranial abnormality. ACT 112: Negative or not required by law. Electronically signed by: Toan Springer M.D. 04/18/2022 7:34 AM
[2022-04-18] MEDS: GABAPENTIN 300 MG CAP PO SCH ×4 (08:00→22:36)
[2022-04-18] MEDS: ATORVASTATIN 40 MG TAB PO SCH (08:00)
[2022-04-18] MEDS: METOPROLOL SUCC 25MG EXT REL TAB PO SCH (08:00)
[2022-04-18] MEDS: amLODIPine BESYLATE 5 MG TAB PO SCH (08:00)
[2022-04-18] MEDS: ASPIRIN 81 MG ECTAB PO SCH (08:00)
--- NOTE | 2022-04-18 08:08 | XRay Report ---
XR chest 1V portable HISTORY: COVID, Hypoxia COMPARISON: Chest 06/21/2021. FINDINGS: No pneumothorax. No pleural effusions. No focal lung consolidations to suggest a pneumonia. No evidence for pulmonary edema. The heart is normal in size. Spinal fusion hardware is again noted. IMPRESSION: No significant change compared to the prior study. No acute process. ACT 112: Negative or not required by law. Electronically signed by: Toan Springer M.D. 04/18/2022 8:07 AM
[2022-04-18] MEDS: INSULIN ASPART PER UNIT SC SCH ×4 (08:33→22:37)
[2022-04-18] MEDS: LANTUS PER UNIT CHARGE SQ SCH ×2 (08:34→22:38)
--- NOTE | 2022-04-18 09:50 | Electrocardiogram Report ---
Test Reason : Blood Pressure : / mmHG Vent. 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
[2022-04-18 10:04] LABS: D Dimer 730 ug/L FEU (0-500)
[2022-04-18 10:09] LABS: BUN Creatinine Ratio 17.5 (10-20); C Reactive Protein 6.3 mg/dl (0-0.5); Calcium 9.4 mg/dl (8.5-10.1); Est GFR (African American) 83.1 ml/min; Est GFR (Non-African American) 71.7 ml/min; Potassium 4.5 mmol/L (3.5-5.1)
[2022-04-18] MEDS ORDERED: ENOXAPARIN INJ 40 MG/0.4 ML SYR SQ ONE (15:35)
--- NOTE | 2022-04-18 15:36 | Hospitalist Progress Note ---
Date of Service April 18, 2022 Assessment & Plan (1) Pneumonia due to COVID-19 virus: Plan: CTA chest with minimal amount of b/l basilar pneumonia. Likely from COVID; doubt any secondary bacterial process. Day #1 of Remdesivir. Day #1 of dexamethasone. Had transient hypoxia early this am - now resolved. O2 sats during my visit were mid-90s in RA. CTA chest fortunately negative for PE although the study was suboptimal. (2) Sinus tachycardia: Plan: Due to persistent sinus tach throughout the day and mildly elevated d-dimer elected to obtain CTA chest. neg for PE. H/H stable on CBC. Most recent TSH wnl. Patient voices no pain. Perhaps due to dehydration. Perhaps due to narcotic withdrawal?? Follow HRs. (3) Hypoxia: Plan: Transient, 2nd to #1. Now stable in RA. (4) Acute metabolic encephalopathy: Plan: 2nd to COVID-19 infection, hypoxia, etc. MS already improved. (5) Hyponatremia: Plan: Chronic, dating back to at least 2016. Check serum osm, urine osm, urine Na. Await studies to determine cause. he is not on chronic diuretics. not on meds that cause SIADH. BMP tonight then again in am. (6) Acute dehydration: Plan: Give 1 additional Liter of NS today. (7) CAD (coronary artery disease), [place] coronary artery: Plan: Cont asa, statin, metoprolol succinate. (8) H/O malignant neoplasm of rectum: Plan: s/o colostomy formation. (9) Obstructive sleep apnea: (10) BPH with obstruction/lower urinary tract symptoms: Plan: cont flomax (11) DM2 (diabetes mellitus, type 2): Plan: a1c 7.3% in 02/2022 hold metformin basal-bolus insulin BSGs relatively acceptable today (12) Hypertension: Plan: cont metoprolol cont amlodipine cont flomax (13) DVT prophylaxis: Plan: add lovenox 40mg daily (14) Chronic pain syndrome: Plan: 2nd to lumbar spine pain? cervical spine pain? per the PDMP he has been receiving oxymorphone 30mg BID for a long period of time but his last refill was in February is he still on these meds?? will need to speak with him about such until we can verify the oxymorphone is still being used at home will schedule oxycodone 10mg BID to prevent any withdrawal Plan updated by phone this evening Admission and Anticipated Discharge Date Admission Date: April 18, 2022 Subjective patient sleeping upon my arrival he was snoring loudly he ultimately woke up when I called his name he reported he was tired today because he had slept poorly overnight mild cough but no dyspnea no orthopnea reports feeling less confused ate decently throughout the day denies any personal or family h/o VTE tele overnight - sinus tach; 1 brief episode of PAT (<20 beats) during the visit I removed his O2 sats stayed 95% or higher Review of Systems Review of Systems: gen - fatigue, weakness - no fevers/chills today cv - no cp, no orthopnea pulm - no sputum, no wheezing GI - no nausea, emesis or diarrhea Physical Exam Physical Exam: gen - NAD, a/o x 3 mouth - MM mildly dry neck - no JVD heart - tachy, s1 s2, no murmur lungs - minimal rales bases, CTA b/l otherwise; no increased work of breathing abd - soft NT ND BS+; colostomy present L side of abdomen ext - no edema, varicose veins b/l shins, no palpable cords, pulses 2+ b/l psych - a/o x 3 Results & Data Results & Data ([facility]) Vital Signs (Past 12 Hours) Vital Signs Temp Pulse Pulse Resp BP Pulse Ox Pulse Ox 04/18/22 13:15 96 04/18/22 12:06 37 C 106 H 20 139/83 99 04/18/22 11:48 04/18/22 10:20 111 H 04/18/22 08:14 37 C 108 H 20 166/101 H 95 Pulse Ox Pulse Ox O2 Del Method O2 Flow Rate O2 Flow Rate O2 Flow Rate O2 Flow Rate 04/18/22 13:15 94 94 1.5 1.5 0 04/18/22 12:06 Nasal Cannula 2 04/18/22 11:48 Nasal Cannula 2 04/18/22 10:20 04/18/22 08:14 Nasal Cannula 2 Laboratory Results Laboratory Results - last 24 hr 04/17/22 04/17/22 04/17/22 21:05 21:05 21:05 WBC 9.47 RBC 4.87 Hgb 14.3 Hct 41.6 L MCV 85.4 MCH 29.4 MCHC 34.4 RDW Std Deviation 36.9 RDW Coeff of Arturo 11.9 Plt Count 167 MPV 10.2 Immature Gran % (Auto) 0.6 Neut % (Auto) 88.6 Lymph % (Auto) 3.3 [place] % (Auto) 7.2 Eos % (Auto) 0.1 Baso % (Auto) 0.2 Neut # (Auto) 8.39 H Lymph # (Auto) 0.31 L [place] # (Auto) 0.68 H Eos # (Auto) 0.01 Baso # (Auto) 0.02 Immature Gran # (Auto) 0.06 PT 10.8 INR 1.0 APTT 28.4 PTT Ratio 1.0 D-Dimer Sodium 128 L Potassium 5.2 H Chloride 95 L Carbon Dioxide 27 Anion Gap 6 BUN 17 Creatinine 1.26 Est Cr Clr Drug Dosing 60.2 Est GFR ( Amer) 65.2 Est GFR (Non-Af Amer) 56.2 BUN/Creatinine Ratio 13.5 Glucose 209 H POC Glucose Osmolality Calcium 8.8 Magnesium 1.8 Total Bilirubin 0.7 AST 26 ALT 25 Alkaline Phosphatase 87 Troponin I High Sens C-Reactive Protein Total Protein 7.3 Albumin 4.3 Globulin 3.0 Albumin/Globulin Ratio 1.4 Procalcitonin Urine Color Urine Appearance Urine pH Ur Specific [place] Urine Protein Urine Glucose (UA) Urine Ketones Urine Blood Urine Nitrite Urine Bilirubin Urine Urobilinogen Ur Leukocyte Esterase Urine WBC (Auto) Urine RBC (Auto) U Hyaline Cast (Auto) U Epithel Cells (Auto) Urine Bacteria (Auto) SARS-CoV-2 (PCR) Influenza Type A (PCR) Influenza Type B (PCR) RSV (RT-PCR) 04/17/22 04/17/22 04/18/22 21:30 22:25 07:52 WBC RBC Hgb Hct MCV MCH MCHC RDW Std Deviation RDW Coeff of Arturo Plt Count MPV Immature Gran % (Auto) Neut % (Auto) Lymph % (Auto) [place] % (Auto) Eos % (Auto) Baso % (Auto) Neut # (Auto) Lymph # (Auto) [place] # (Auto) Eos # (Auto) Baso # (Auto) Immature Gran # (Auto) PT INR APTT PTT Ratio D-Dimer Sodium Potassium Chloride Carbon Dioxide Anion Gap BUN Creatinine Est Cr Clr Drug Dosing Est GFR ( Amer) Est GFR (Non-Af Amer) BUN/Creatinine Ratio Glucose POC Glucose 221 H Osmolality Calcium Magnesium Total Bilirubin AST ALT Alkaline Phosphatase Troponin I High Sens C-Reactive Protein Total Protein Albumin Globulin Albumin/Globulin Ratio Procalcitonin Urine Color Yellow Urine Appearance Clear Urine pH 6.5 Ur Specific [place] 1.018 Urine Protein Trace H Urine Glucose (UA) Trace H Urine Ketones Trace H Urine Blood Negative Urine Nitrite Negative Urine Bilirubin Negative Urine Urobilinogen Negative Ur Leukocyte Esterase Negative Urine WBC (Auto) 0 Urine RBC (Auto) 0-4 U Hyaline Cast (Auto) 0 U Epithel Cells (Auto) 5-10 H Urine Bacteria (Auto) Negative SARS-CoV-2 (PCR) POSITIVE A* Influenza Type A (PCR) Negative Influenza Type B (PCR) Negative RSV (RT-PCR) Negative 04/18/22 04/18/22 04/18/22 09:11 09:11 09:11 WBC RBC Hgb Hct MCV MCH MCHC RDW Std Deviation RDW Coeff of Arturo Plt Count MPV Immature Gran % (Auto) Neut % (Auto) Lymph % (Auto) [place] % (Auto) Eos % (Auto) Baso % (Auto) Neut # (Auto) Lymph # (Auto) [place] # (Auto) Eos # (Auto) Baso # (Auto) Immature Gran # (Auto) PT INR APTT PTT Ratio D-Dimer 730 H* Sodium 129 L Potassium 4.5 Chloride 96 L Carbon Dioxide 26 Anion Gap 7 BUN 18 Creatinine 1.03 Est Cr Clr Drug Dosing 68.0 Est GFR ( Amer) 83.1 Est GFR (Non-Af Amer) 71.7 BUN/Creatinine Ratio 17.5 Glucose 240 H POC Glucose Osmolality Calcium 9.4 Magnesium Total Bilirubin AST ALT Alkaline Phosphatase Troponin I High Sens C-Reactive Protein 6.30 H Total Protein Albumin Globulin Albumin/Globulin Ratio Procalcitonin 0.13 Urine Color Urine Appearance Urine pH Ur Specific [place] Urine Protein Urine Glucose (UA) Urine Ketones Urine Blood Urine Nitrite Urine Bilirubin Urine Urobilinogen Ur Leukocyte Esterase Urine WBC (Auto) Urine RBC (Auto) U Hyaline Cast (Auto) U Epithel Cells (Auto) Urine Bacteria (Auto) SARS-CoV-2 (PCR) Influenza Type A (PCR) Influenza Type B (PCR) RSV (RT-PCR) 04/18/22 04/18/22 04/18/22 11:55 16:52 19:53 WBC RBC Hgb Hct MCV MCH MCHC RDW Std Deviation RDW Coeff of Arturo Plt Count MPV Immature Gran % (Auto) Neut % (Auto) Lymph % (Auto) [place] % (Auto) Eos % (Auto) Baso % (Auto) Neut # (Auto) Lymph # (Auto) [place] # (Auto) Eos # (Auto) Baso # (Auto) Immature Gran # (Auto) PT INR APTT PTT Ratio D-Dimer Sodium Potassium Chloride Carbon Dioxide Anion Gap BUN Creatinine Est Cr Clr Drug Dosing Est GFR ( Amer) Est GFR (Non-Af Amer) BUN/Creatinine Ratio Glucose POC Glucose 178 H 177 H Osmolality 274 L Calcium Magnesium Total Bilirubin AST ALT Alkaline Phosphatase Troponin I High Sens C-Reactive Protein Total Protein Albumin Globulin Albumin/Globulin Ratio Procalcitonin Urine Color Urine Appearance Urine pH Ur Specific [place] Urine Protein Urine Glucose (UA) Urine Ketones Urine Blood Urine Nitrite Urine Bilirubin Urine Urobilinogen Ur Leukocyte Esterase Urine WBC (Auto) Urine RBC (Auto) U Hyaline Cast (Auto) U Epithel Cells (Auto) Urine Bacteria (Auto) SARS-CoV-2 (PCR) Influenza Type A (PCR) Influenza Type B (PCR) RSV (RT-PCR) 04/18/22 04/18/22 19:53 20:03 WBC RBC Hgb Hct MCV MCH MCHC RDW Std Deviation RDW Coeff of Arturo Plt Count MPV Immature Gran % (Auto) Neut % (Auto) Lymph % (Auto) [place] % (Auto) Eos % (Auto) Baso % (Auto) Neut # (Auto) Lymph # (Auto) [place] # (Auto) Eos # (Auto) Baso # (Auto) Immature Gran # (Auto) PT INR APTT PTT Ratio D-Dimer Sodium 130 L Potassium Chloride Carbon Dioxide Anion Gap BUN Creatinine Est Cr Clr Drug Dosing Est GFR ( Amer) Est GFR (Non-Af Amer) BUN/Creatinine Ratio Glucose POC Glucose 158 H Osmolality Calcium Magnesium Total Bilirubin AST ALT Alkaline Phosphatase Troponin I High Sens 11.4 C-Reactive Protein Total Protein Albumin Globulin Albumin/Globulin Ratio Procalcitonin Urine Color Urine Appearance Urine pH Ur Specific [place] Urine Protein Urine Glucose (UA) Urine Ketones Urine Blood Urine Nitrite Urine Bilirubin Urine Urobilinogen Ur Leukocyte Esterase Urine WBC (Auto) Urine RBC (Auto) U Hyaline Cast (Auto) U Epithel Cells (Auto) Urine Bacteria (Auto) SARS-CoV-2 (PCR) Influenza Type A (PCR) Influenza Type B (PCR) RSV (RT-PCR) Diagnostic Findings Chest CTA 04/18/22 16:08 CT ANGIOGRAPHY OF THE CHEST, PULMONARY EMBOLUS PROTOCOL CLINICAL HISTORY: COVID+, tachycardic, eval for PE COMPARISON STUDY: Chest CT February 16, 2022 and chest radiograph performed earlier today. TECHNIQUE: Following IV administration of 110 mL of Optiray, helical axial images of the chest were obtained utilizing the pulmonary embolus protocol. Maximal intensity projections and sagittal and coronal reformats were viewed on an independent 3D workstation. IV contrast was administered without complication. Automated exposure control was utilized for the study. A dose lowering technique was utilized adhering to the principles of ALARA. CT DOSE: 589.54 mGy.cm FINDINGS: No pulmonary emboli are identified although the segmental and subsegmental pulmonary arteries within the lower lobes are suboptimally assessed due to respiratory motion. There is no thoracic aortic dissection. Mild dilatation of the ascending aorta, measuring 4.1 cm, is unchanged. No pericardial effusion. There is no thoracic lymphadenopathy. A 6 mm subpleural right lower lobe nodule on image 127 of [address] of October 10, 2012. This is benign given stability. Subpleural opacities within the lower lobes are noted. Lungs are suboptimally assessed due to respiratory motion. There is mild emphysema. Mild dilatation of the central pulmonary arteries is present. No pneumothorax or pleural effusion is noted. Postoperative findings within the spine are incidentally noted. Hepatic steatosis. IMPRESSION: 1. No pulmonary emboli identified although lower lobe segmental and subsegmental pulmonary arteries suboptimally assessed due to respiratory motion. 2. Subpleural opacities within the lower lobes which favor atelectasis. An infectious process could appear similar although is considered less likely. 3. Emphysema. ACT 112: Negative or not required by law. Electronically signed by: Salvador Sim M.D. 04/18/2022 8:52 PM PG Care Time/CCT Total # of Minutes Spent Total Time Spent with Patient: Total time spent is greater than 50% in coordination of care (as documented) at patient's floor/unit and/or counseling patient: Coding Level of Care Code None Diagnoses Pneumonia due to COVID-19 virus U07.1; J12.82 Sinus tachycardia R00.0 Hypoxia R09.02 Acute metabolic encephalopathy G93.41 Hyponatremia E87.1 Acute dehydration E86.0 CAD (coronary artery disease), [place] coronary artery I25.10 [place] vs. transplanted heart: [place] heart Associated angina: without angina H/O malignant neoplasm of rectum Z85.048 Obstructive sleep apnea G47.33 BPH with obstruction/lower urinary tract symptoms N40.1; N13.8 DM2 (diabetes mellitus, type 2) E11.36 Diabetes mellitus fdc insulin use: without fdc use Diabetes mellitus complication status: with ophthalmic complications Diabetes mellitus complication detail: with cataract Hypertension I10 Hypertension type: primary hypertension DVT prophylaxis Z29.9 Chronic pain syndrome G89.4 (1) CAD (coronary artery disease), [place] coronary artery [place] vs. transplanted heart: [place] heart Associated angina: without angina Qualified Code(s): I25.10 - Atherosclerotic heart disease of [place] coronary artery without angina pectoris (2) DM2 (diabetes mellitus, type 2) Diabetes mellitus fdc insulin use: without exterminator use Diabetes mellitus complication status: with ophthalmic complications Diabetes mellitus complication detail: with cataract Qualified Code(s): E11.36 - Type 2 diabetes mellitus with diabetic cataract (3) Hypertension Hypertension type: primary hypertension Qualified Code(s): I10 - Essential ( primary) hypertension
[2022-04-18] MEDS ORDERED: SODIUM CHLORIDE 0.9% 1000ML 1,000 ML IV SCH (16:15)
[2022-04-18] MEDS ORDERED: OPTIRAY 320 500ml IV ONE (20:18)
[2022-04-18 20:45] LABS: Troponin I High Sensitivity 11.4 pg/ml (0-20)
--- NOTE | 2022-04-18 20:55 | CT Scan Report ---
CT ANGIOGRAPHY OF THE CHEST, PULMONARY EMBOLUS PROTOCOL CLINICAL HISTORY: COVID+, tachycardic, eval for PE COMPARISON STUDY: Chest CT February 16, 2022 and chest radiograph performed earlier today. TECHNIQUE: Following IV administration of 110 mL of Optiray, helical axial images of the chest were o btained utilizing the pulmonary embolus protocol. Maximal intensity projections and sagittal and cor onal reformats were viewed on an independent 3D workstation. IV contrast was administered without co mplication. Automated exposure control was utilized for the study. A dose lowering technique was ut ilized adhering to the principles of ALARA. CT DOSE: 589.54 mGy.cm FINDINGS: No pulmonary emboli are identified although the segmental and subsegmental pulmonary arter ies within the lower lobes are suboptimally assessed due to respiratory motion. There is no thoracic aortic dissection. Mild dilatation of the ascending aorta, measuring 4.1 cm, is unchanged. No pericar dial effusion. There is no thoracic lymphadenopathy. A 6 mm subpleural right lower lobe nodule on jd ge 127 of [address] of October 10, 2012. This is benign given stability. Subpleural opac ities within the lower lobes are noted. Lungs are suboptimally assessed due to respiratory motion. Th ere is mild emphysema. Mild dilatation of the central pulmonary arteries is present. No pneumothorax or pleural effusion is noted. Postoperative findings within the spine are incidentally noted. Hepatic steatosis. IMPRESSION: 1. No pulmonary emboli identified although lower lobe segmental and subsegmental pulmonary arteries s uboptimally assessed due to respiratory motion. 2. Subpleural opacities within the lower lobes which favor atelectasis. An infectious process could a ppear similar although is considered less likely. 3. Emphysema. ACT 112: Negative or not required by law. Electronically signed by: Salvador Sim M.D. 04/18/2022 8:52 PM
[2022-04-18] MEDS ORDERED: TAMSULOSIN HCL 0.4 MG CAP PO SCH (21:00)
[2022-04-18] MEDS ORDERED: oxyCODONE HCL IR 5 MG TAB (IMMEDIATE RELEASE) PO STA (22:07)
[2022-04-19] MEDS ORDERED: dexAMETHasone 6 MG in SYRINGE 0 ML IV SCH
[2022-04-19] MEDS: LANTUS PER UNIT CHARGE SQ SCH (08:03)
[2022-04-19] MEDS: INSULIN ASPART PER UNIT SC SCH (08:03)
[2022-04-19] MEDS: amLODIPine BESYLATE 5 MG TAB PO SCH (08:11)
[2022-04-19] MEDS: ASPIRIN 81 MG ECTAB PO SCH (08:11)
[2022-04-19] MEDS: GABAPENTIN 300 MG CAP PO SCH (08:11)
[2022-04-19] MEDS: METOPROLOL SUCC 25MG EXT REL TAB PO SCH (08:11)
[2022-04-19] MEDS: ATORVASTATIN 40 MG TAB PO SCH (08:11)
[2022-04-19 08:21] LABS: Hematocrit (blood only) 42.7 % (42.0-52.0); Hemoglobin 14.5 g/dl (14.0-18.0); Mean Corpuscular Hemoglobin 29.2 pg (25.0-34.0); Mean Corpuscular Volume 86.1 fL (80.0-100.0); Mean Platelet Volume 10.7 fL (9.4-12.4); Platelet Count 129 K/uL (130-400); RDW Coefficient of Variation 11.9 % (11.5-14.5); RDW Standard Deviation 37.1 fL (36.4-46.3); Red Blood Count 4.96 M/uL (4.70-6.10); White Blood Count 6.78 K/ul (4.8-10.8)
[2022-04-19 08:23] LABS: BUN Creatinine Ratio 24.4 (10-20); Calcium 9.3 mg/dl (8.5-10.1); Creatinine Clr Calc Pharmacy 77.9 ml/min; Est GFR (African American) 97.9 ml/min; Est GFR (Non-African American) 84.4 ml/min; Potassium 4.4 mmol/L (3.5-5.1)
--- NOTE | 2022-04-19 08:24 | Hospitalist Progress Note ---
Date of Service April 19, 2022 Assessment & Plan (1) Pneumonia due to COVID-19 virus: Plan: acute pneumonia due to covid seen on imaging CTA chest with minimal amount of b/l basilar pneumonia. started on Remdesivir/dexamethasone . due to hypoxia on presentation (2) Sinus tachycardia: Plan: acute sinus tach, likely physiologic, supportive care, treat infection (3) Hypoxia: Plan: acute self limited, pt has acute pneumonia and history of copd (4) Acute metabolic encephalopathy: Plan: 2nd to COVID-19 infection, hypoxia, etc. resolved (5) Hyponatremia: Plan: Chronic, dating back to at least 2017. (6) CAD (coronary artery disease), [place] coronary artery: Plan: chronic and stable Cont asa, statin, metoprolol succinate. (7) H/O malignant neoplasm of rectum: Plan: s/o colostomy formation. (8) Obstructive sleep apnea: (9) BPH with obstruction/lower urinary tract symptoms: Plan: cont flomax (10) DM2 (diabetes mellitus, type 2): Plan: a1c 7.3% in 02/2022 hold metformin basal-bolus insulin BSGs relatively acceptable today (11) Hypertension: Plan: chronic and stable cont metoprolol, amlodipine flomax (12) DVT prophylaxis: Plan: add lovenox 40mg daily (13) Chronic pain syndrome: Plan: 2nd to lumbar spine pain? cervical spine pain? per the PDMP he has been receiving oxymorphone 30mg BID for a long period of time but his last refill was in February Admission and Anticipated Discharge Date Admission Date: April 18, 2022 Results & Data Results & Data ([facility]) Vital Signs (Past 12 Hours) Vital Signs Temp Pulse Pulse Resp BP Pulse Ox O2 Del Method 04/19/22 07:31 105 H 04/19/22 06:00 98.2 F 101 H 18 142/93 H 95 Room Air 04/19/22 04:00 98.4 F 103 H 19 148/92 H 93 Room Air 04/18/22 23:36 96 H 04/18/22 23:00 98.6 F 100 H 18 154/96 H 96 Room Air PG Care Time/CCT Total # of Minutes Spent Total Time Spent with Patient: Total time spent is greater than 50% in coordination of care (as documented) at patient's floor/unit and/or counseling patient: Coding Diagnoses Pneumonia due to COVID-19 virus U07.1; J12.82 Sinus tachycardia R00.0 Hypoxia R09.02 Acute metabolic encephalopathy G93.41 Hyponatremia E87.1 CAD (coronary artery disease), [place] coronary artery I25.10 [place] vs. transplanted heart: [place] heart Associated angina: without angina H/O malignant neoplasm of rectum Z85.048 Obstructive sleep apnea G47.33 BPH with obstruction/lower urinary tract symptoms N40.1; N13.8 DM2 (diabetes mellitus, type 2) E11.36 Diabetes mellitus care home insulin use: without long term care social worker use Diabetes mellitus complication status: with ophthalmic complications Diabetes mellitus complication detail: with cataract Hypertension I10 Hypertension type: primary hypertension DVT prophylaxis Z29.9 Chronic pain syndrome G89.4 (1) CAD (coronary artery disease), [place] coronary artery [place] vs. transplanted heart: [place] heart Associated angina: without angina Qualified Code(s): I25.10 - Atherosclerotic heart disease of [place] coronary artery without angina pectoris (2) DM2 (diabetes mellitus, type 2) Diabetes mellitus long term care social worker insulin use: without long term care social worker use Diabetes mellitus complication status: with ophthalmic complications Diabetes mellitus complication detail: with cataract Qualified Code(s): E11.36 - Type 2 diabetes mellitus with diabetic cataract (3) Hypertension Hypertension type: primary hypertension Qualified Code(s): I10 - Essential (primary) hypertension
[2022-04-19] MEDS ORDERED: oxyCODONE HCL IR 5 MG TAB (IMMEDIATE RELEASE) PO SCH (09:00)
[2022-04-19] MEDS ORDERED: ENOXAPARIN INJ 40 MG/0.4 ML SYR SQ SCH (09:00)
[2022-04-19] MEDS ORDERED: REMDESIVIR 100 MG in SODIUM CHLORIDE 0.9% 230 ML IV SCH (12:00)
--- NOTE | 2022-04-19 16:58 | Discharge Summary ---
Date of Service April 19, 2022 Admission HPI Per Admitting Provider Jere is a 72 year old male w/ PmHx CAD s/p PCI to proximal to mid RCA w/ single JOO 10/2020, BPH, HTN, T2DM, rectal cancer s/p colostomy, HARJEET coming in to the hospital for confusion earlier yesterday. Patient states that he was at home earlier yesterday when it was commented on by his family that he was acting more confused. He is unable to remember how he was more confused but relays that he was feeling more off balance and had a fall. He states that he was then brought in by ambulance to the hospital, still with some minor confusion but otherwise feeling fine. He denies any shortness of breath, chest pain, chest tightness, fevers, chills, abdominal pain, diarrhea, constipation, myalgia, congestion, rhinorrhea, cough, mucous production. Patient states that he had a colostomy for rectal cancer down in [place] 17 years ago although no recent abnormalities, discharge, or pain around the area. Patient states that he usually keeps well hydrated throughout the day with multiple glasses of water. 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 He states his did not come with him today as she wasn't feeling great herself. Per ED note patient was found on floor from fall. Patient had 2 doses of Moderna COVID vaccines but no booster shots. In the ED he was found to have a WBC count of 9.47, hgb 14.3, platelet 167, PT/INR WNL, sodium 128, potassium 5.2, chloride 95, BUN 17, Creatinine 1.26, LFT's WNL. CT of the head was without any acute abnormalities. CXR w/ mild interstital markings otherwise clear and w/o cardiomegaly. Principal Diagnosis COVID-19 positive test (U07.1, COVID-19) with Acute Pneumonia (J12.89, Other viral pneumonia) (If respiratory failure or sepsis present, add as separate assessment) Acute hypoxic respiratory failure resolved Discharge Exam Patient awake and in no distress. Two-step oxygen test was performed prior to going home the patient does not require home oxygen Patient was offered Paxlovid for home he denied the offer for this, but he did agree to taking dexamethasone Discharge Data Allergies Allergy/AdvReac Type Severity Reaction Status Date / Time rosuvastatin AdvReac Severe Myalgia Verified 04/18/22 00:40 Consultations 04/17/22 23:55 ED Decision to Admit Stat Ordered Studies 04/17/22 22:10 CT head/brain wo con Urgent 04/18/22 16:08 CT angio chest PE protocol Urgent Hospital Course (1) Pneumonia due to COVID-19 virus: acute pneumonia due to covid seen on imaging CTA chest with minimal amount of b/l basilar pneumonia. started on Remdesivir/dexamethasone . due to hypoxia on presentation hypoxia since resolved. Patient does not wish to be prescribed Paxlovid he will take dexamethasone home to complete 10-day course (2) Sinus tachycardia: acute sinus tach, likely physiologic, resolved with supportive care (3) Hypoxia: acute self limited, pt has acute pneumonia and history of copd Patient had two-step ambulatory oxygen test prior to discharge he did not require home oxygen (4) Acute metabolic encephalopathy: 2nd to COVID-19 infection, hypoxia, etc. resolved (5) Hyponatremia: Chronic, dating back to at least 2016. (6) CAD (coronary artery disease), [place] coronary artery: chronic and stable Cont asa, statin, metoprolol succinate. (7) H/O malignant neoplasm of rectum: s/o colostomy formation. (8) Obstructive sleep apnea: (9) BPH with obstruction/lower urinary tract symptoms: cont flomax (10) DM2 (diabetes mellitus, type 2): a1c 7.3% in 02/2022 Resume home diabetic care plan (11) Hypertension: chronic and stable slightly elevated prior to discharge will return to home and cont metoprolol, amlodipine flomax (12) Chronic pain syndrome: 2nd to lumbar spine pain? cervical spine pain? per the PDMP he has been receiving oxymorphone 30mg BID for a long period of time but his last refill was in February recommend follow-up with his primary care provider Total Time Total Time Spent Total Time Spent (In Minutes): It required greater than 30 minutes to prepare this patient for discharge Discharge Plan Discharge Items Patient Disposition: Home - Self-Care Reason For Visit: CONFUSION, COVID + Discharge Diagnosis: covid pneumonia confusion from covid infection Activity: Per Instructions section Activity Comment: rest and slowly increase activity Non-emergency contact: Primary Care Provider Call non-emergency contact if: your symptoms worsen Follow-up/Referrals: Loy Browning III, CRNP [Primary Care Provider] - 04/29/22 4:00 pm Diet: Regular Addtl Attending Provider Instructions: You have been diagnosed with covid infection, it would be recommended that you quarantine yourself for 10 days from your first test or first symptoms, and if at the 10th day you have no symptoms the you can come off quarantine but use common sense precautions. Quarantine means attempting to stay away from people who have not had an active covid infection in the past, and if you have to be around others to wear a mask even if you are indoors, do not share a room to sleep in with others until you are out of quarantine. If you still have symptoms at the 10th day, continue to quarantine until you are symptom free for 48 hours Pending Studies at Discharge: Yes (final blood analysis) Stand-Alone Forms: My MUBI, Smoking Cessation Medications and DC Order Prescriptions: New dexamethasone 6 mg tablet 6 mg PO DAILY Qty: 8 0RF Continued acetaminophen 500 mg capsule 500 mg PO Q8H PRN (Reason: Pain) atorvastatin 40 mg tablet 40 mg PO QAM Qty: 90 3RF baclofen 20 mg tablet See Rx Instructions .ROUTE .COMPLEX Qty: 180 1RF Dose Instruction: TAKE 1 TABLET BY MOUTH TWICE A DAY NEEDED FOR MUSCLE SPASM Rx Instructions: TAKE 1 TABLET BY MOUTH TWICE A DAY NEEDED FOR MUSCLE SPASM metformin 500 mg tablet See Rx Instructions .ROUTE .COMPLEX Qty: 180 3RF Dose Instruction: TAKE 1 TABLET TWICE A DAY Rx Instructions: TAKE 1 TABLET TWICE A DAY metoprolol succinate 25 mg tablet extended release 24 hr 25 mg PO DAILY Qty: 90 1RF amlodipine 10 mg tablet 10 mg PO QAM Qty: 90 1RF tamsulosin 0.4 mg capsule 0.4 mg PO HS Qty: 90 3RF gabapentin 600 mg tablet 300 mg PO QID oxycodone 5 mg tablet 5 mg PO BID 30 Days Qty: 60 0RF oxymorphone 30 mg tablet extended release 12 hr 30 mg PO BID Qty: 60 0RF naloxone 4 mg/actuation spray,non-aerosol 1 spray intranasal Q3M PRN (Reason: OVER SEDATION) Rx Instructions: spray 1 dose into ONE nostril; alternate nostrils w each dose until help arrives aspirin 81 mg Tablet,Delayed Release (Dr/Ec) 81 mg PO QAM Qty: 30 0RF Rx Instructions: OTC multivitamin Tablet 1 tab PO DAILY loratadine [Claritin] 10 mg Tablet 10 mg PO QAM PRN (Reason: Congestion) Discharge Orders: Discharge Order (Routine); Ordered 04/19/22 Ordered By: Jere Kate Admission Data Admit Date/Time: 04/18/22 01:08 Attending Provider: Jere Kate Admit Provider: Behzad Chawla Primary Care Provider: Loy Browning III Other Providers: Neeraj Sanderson Other Interventions: Discharge Summary Assessment (RN) Last Done: 04/19/22 11:47 Coding Level of Care Code HOSP INP/OBS DISCH >30 MIN Diagnoses Pneumonia due to COVID-19 virus U07.1; J12.82 Sinus tachycardia R00.0 Hypoxia R09.02 Acute metabolic encephalopathy G93.41 Hyponatremia E87.1 CAD (coronary artery disease), [place] coronary artery I25.10 [place] vs. transplanted heart: [place] heart Associated angina: without angina H/O malignant neoplasm of rectum Z85.048 Obstructive sleep apnea G47.33 BPH with obstruction/lower urinary tract symptoms N40.1; N13.8 DM2 (diabetes mellitus, type 2) E11.36 Diabetes mellitus mcfp insulin use: without mcfp use Diabetes mellitus complication status: with ophthalmic complications Diabetes mellitus complication detail: with cataract Hypertension I10 Hypertension type: primary hypertension Chronic pain syndrome G89.4
== END 2022-04-19 12:51 | disposition home or self-care (01) | DRG 177 ==
LOC: ED 20:51 → SUATTDRO 04-18 01:08 → 2W 04-18 01:08

== ENCOUNTER 2022-05-06 20:48 | Inpatient (IN) ==
[2022-05-06 21:36] LABS: Alanine Aminotransferase 22 U/L (7-52); Albumin Globulin Ratio 1.2 (0.9-2); Albumin Level 4.1 gm/dl (3.4-5.0); Alkaline Phosphatase 85 U/L (34-104); Anion Gap 8 (3-11); Aspartate Aminotransferase 15 U/L (13-39); BUN Creatinine Ratio 17.4 (10-20); Bilirubin,Total 0.8 mg/dl (0.2-1.0); Blood Urea Nitrogen 19 mg/dl (6-23); Calcium 8.9 mg/dl (8.5-10.1); Carbon Dioxide 27 mmol/L (21-32); Chloride 92 mmol/L (98-107); Est GFR (African American) 77.6 ml/min; Globulin 3.4 gm/dl (2.5-4.0); Glucose 233 mg/dl (70-99(Fasting)); Potassium 4.3 mmol/L (3.5-5.1); Sodium 127 mmol/L (136-145); Total Protein 7.5 gm/dl (6.0-8.3)
[2022-05-06 21:43] LABS: Troponin I High Sensitivity 8.2 pg/ml (0-20)
[2022-05-06 21:46] LABS: Partial Thromboplastin Time 28.5 Seconds (21.0-31.0); Prothrombin Time 10.7 Seconds (9.0-12.0)
[2022-05-06 21:53] LABS: Basophils # (auto) 0.04 K/uL (0-0.2); Basophils % (auto) 0.4 %; Eosinophils # (auto) 0.05 K/uL (0-0.50); Eosinophils % (auto) 0.5 %; Hematocrit (blood only) 37.2 % (42.0-52.0); Hemoglobin 12.7 g/dl (14.0-18.0); Immature Granulocytes # (auto) 0.08 K/uL (0.01-0.20); Immature Granulocytes % (auto) 0.8 %; Lymphocytes # (auto) 1.19 K/uL (1.2-3.4); Lymphocytes % (auto) 11.9 %; Mean Corpuscular Hemoglobin 29.3 pg (25.0-34.0); Mean Corpuscular Hgb Conc 34.1 g/dL (32.0-36.0); Mean Corpuscular Volume 85.7 fL (80.0-100.0); Mean Platelet Volume 9.5 fL (9.4-12.4); Monocytes # (auto) 0.64 K/uL (0.11-0.59); Monocytes % (auto) 6.4 %; Neutrophils # (auto) 7.96 K/uL (1.40-6.50); Platelet Count 223 K/uL (130-400); RDW Standard Deviation 37.2 fL (36.4-46.3); Red Blood Count 4.34 M/uL (4.70-6.10); White Blood Count 9.96 K/ul (4.8-10.8)
[2022-05-06] MEDS ORDERED: SODIUM CHLORIDE 0.9% 1000ML 500 ML IV ONE (23:11)
--- NOTE | 2022-05-06 23:31 | Emergency Department Note ---
Impression & Plan Chest pain, Hyponatremia, Tachycardia ED Provider Note INFORMANT: Patient and family ED PROVIDER(S): Krishna Mcintyre MD CHIEF COMPLAINT: Chest pain PLAN: Disposition: Admitted Condition: Good Outpatient prescription management: none Referral: None MEDICAL DECISION MAKING: Patient presented complaining of chest pain. He did have mild tachycardia. His history was concerning as he recently had COVID which complicated the visit today. He underwent a work-up. No acute ischemia was seen on his ECG. His chemistries were unremarkable. Troponin was negative. Patient was sent for CT imaging to evaluate for pulmonary emboli. None were seen. Given the patient's chest pain I discussed further management in the hospital patient and family. They were in agreement. [facility] Vare[facility]. Case was discussed and diagnostics were reviewed. Patient was evaluated in the ER and admitted for further management. Discussed with advertising agency manager. After review of the information above and other included data, I feel the patient requires further management in the hospital. Triage Nursing notes reviewed and agree them. Vital Signs: reviewed and remarkable for hypertension and tachycardia Prior /Outside records reviewed: Previous hospitalization records reviewed regarding COVID admission. Differential diagnosis: Cardiac ischemia, aortic dissection, pulmonary embolism, pneumothorax, pneumonia, pericarditis, myocarditis, esophageal rupture, GERD, cholecystitis, pancreatitis, musculoskeletal, as well as other pathologies. Diagnostics, as interpreted by me: EC Lead ECG performed and revealed sinus tachycardia 125 bpm, normal Closplint, QRS normal. No elevation or depression. Inferior and lateral Q waves. No PACs or PVCs Cardiac Monitoring: Cardiac monitoring ordered by me: The patient was placed on continuous cardiac monitoring and observed. It revealed a sinus tachycardic rhythm at 111 beats per minute without ectopy or evidence of dysrhythmia. Medical decision rules: none Imaging studies: Chest x-ray. Findings: A chest x-ray was performed and revealed no pneumothorax, effusion, infiltrate, pulmonary edema, free air under the diaphragm, or wide mediastinum. Impression: No acute disease. Surgical hardware noted. HPI: The patient is a 72year old male who presents to the Emergency Room with complaints of chest pain. This started today and is made worse by taking deep breath. It is noted on the bilateral anterior lateral ribs. Patient had COVID about 2.5 weeks ago. Patient was treated with steroids and antibiotic. He notes feeling generally weak and not really recovering since his COVID illness. The patient also notes the following associated symptoms, lightheadedness, weakness. The patient has found no relieving factors. Current pain is rated as 6/10. Pt denies LOC, headache, fevers, chills, diaphoresis, visual changes, neck pain, breathing difficulties, nausea, vomiting, abdominal pain, back pain, melena, hematochezia, urinary symptoms, numbness, lymphadenopathy, rash, or other complaints. PAST MEDICAL HISTORY: See Below, COVID-19, CAD PAST SURGICAL HISTORY: See Below, colostomy SOCIAL HISTORY: See Below, retired HOME MEDICATIONS: See Below ALLERGIES: See Below VITALS: See Below PHYSICAL EXAMINATION: GENERAL: Awake, alert, well-appearing, in no distress HENT: Normocephalic, atraumatic. Oropharynx unremarkable. EYES: Normal conjunctiva. Sclera non-icteric. NECK: Inspection normal. Non-tender. Supple. No nuchal rigidity. FROM. No masses. RESPIRATORY: Clear to auscultation. No wheezes. No rales. Normal respiratory effort. CARDIAC: Tachycardic rate. Normal rhythm. No murmurs. No rubs. Extremities warm and well perfused. Pulses equal. No JVD. GI: Soft, non-distended. Colostomy in left lower quadrant. No tenderness to palpation. No rebound or guarding. No masses. RECTAL: Deferred. MUSCULOSKELETAL: Atraumatic. Chest examination reveals no tenderness. The back is symmetrical on inspection without obvious abnormality. There is no CVA tenderness to palpation. No joint edema. LOWER EXTREMITIES: Calves are equal size bilaterally and non-tender. No edema. No discoloration. NEURO: Normal sensorium. No sensory or motor deficits noted. SKIN: No rash or jaundice noted. Past Med/Surg History Medical History Acute upper gastrointestinal bleeding LYUBOV (acute kidney injury) Anxiety disorder BPH with obstruction/lower urinary tract symptoms CAD (coronary artery disease), [place] coronary artery Cervical fusion syndrome Chronic back pain DM2 (diabetes mellitus, type 2) High anion gap metabolic acidosis Hypertension Hypocalcemia Hypomagnesemia Hyponatremia Hypophosphatemia Hypoxia Metabolic acidosis Obstructive sleep apnea Osteoarthritis Partial small bowel obstruction Peripheral neuropathy Postlaminectomy syndrome of lumbosacral region SBO (small bowel obstruction) elevation (STEMI) myocardial infarction Statin myopathy Syncope Thumb pain Transaminitis Surgical History H/O inguinal hernia repair H/O resection of rectum History of rectal surgery Previous back surgery S/P cervical spinal fusion S/P drug eluting coronary stent placement S/P PTCA (percutaneous transluminal coronary angioplasty) S/P tonsillectomy and adenoidectomy Family History Father Cardiovascular disease Cardiac disorder Prostate cancer Mother Dementia Diabetes Other Hypertension No significant family history Denies family history of Ovarian cancer Myocardial infarction Breast cancer Colorectal cancer Social History Smoking Status: Former smoker Tobacco Type: Smokeless Tobacco (Dip or Chew) Age Started Using Tobacco: 17; Age Quit Using Tobacco: 24; packs per day: 1; Cigarettes Per Day: 20; Second Hand Exposure: No; Hx Alcohol Use: No Hx Substance Use: No Preferred Language: Persian Communication Ability: Effective Visual Impairment: No Limitations Hearing Ability: Normal Turntable Man Required: No Beliefs That Will Affect Care: None marital status: Current Living Situation: Spouse current occupational status: retired How many Children do You have: 4 Feels Safe at Home: Yes Childhood Exposure to Second-Hand Smoke: No caffeine: Yes during the past year weight has: remained stable Dental Care, Regularly: No Physical Activity Frequency: Daily Seatbelt Use: always Sunscreen Use: No Assistive Devices: Walker Allergies Allergies Allergy/AdvReac Type Severity Reaction Status Date / Time rosuvastatin AdvReac Severe Myalgia Verified 05/06/22 22:38 Home Meds Home Medications Medication Instructions Recorded Confirmed acetaminophen 500 mg capsule 500 mg PO Q8H PRN Pain 10/12/20 05/06/22 naloxone 4 mg/actuation nasal spray 1 spray intranasal Q3M PRN OVER 12/19/20 05/06/22 SEDATION loratadine 10 mg tablet (Claritin) 10 mg PO QAM PRN Congestion 04/19/21 05/06/22 multivitamin 1 tab PO DAILY 04/19/21 05/06/22 baclofen 20 mg tablet 20 mg PO BID PRN MUSCLE SPASMS 05/06/22 05/06/22 metformin 500 mg tablet 500 mg PO BID 05/06/22 05/06/22 Previous Rx's Medication Instructions Recorded aspirin 81 mg tablet,delayed 81 mg PO QAM #30 tabs 11/05/20 release atorvastatin 40 mg tablet 40 mg PO QAM #90 tabs 11/23/21 metoprolol succinate 25 mg 25 mg PO DAILY #90 tabs 01/17/22 tablet,extended release 24 hr amlodipine 10 mg tablet 10 mg PO QAM #90 tabs 02/16/22 tamsulosin 0.4 mg capsule 0.4 mg PO HS #90 caps 03/02/22 oxycodone 5 mg tablet 5 mg PO BID Pain 30 days #60 tabs 04/21/22 oxymorphone 30 mg tablet,extended 30 mg PO BID #60 tabs 04/21/22 release,12 hr gabapentin 600 mg tablet 300 mg PO QID Unknown #60 tabs 04/26/22 Results & Data (ED) Vital Signs Vital Signs - 24 hr 05/06/22 20:49 05/06/22 21:53 05/06/22 21:49 Temperature 36.5 C Temperature Source Temporal Artery Scan Pulse Rate 87 120 H Pulse Rate [Right Finger] Pulse Rhythm [Right Finger] Pulse Strength [Right Finger] Respiratory Rate 20 Respiratory Effort / Characteristics Short of Breath SOB on Exertion Respiratory Depth Respiratory Pattern Blood Pressure 129/79 Blood Pressure [Right Arm] Blood Pressure Mean 95 Blood Pressure Mean [Right Arm] Blood Pressure Position Sitting Pulse Oximetry 99 95 Oxygen Delivery Method Room Air Room Air Sepsis Recent Fever Within 48 Hours No Sepsis New/Unexplained Change in Mental Status N/A Sepsis Action Taken by Nursing No Action Required 05/06/22 21:49 05/06/22 23:00 Temperature Temperature Source Pulse Rate 111 H Pulse Rate [Right Finger] 108 H Pulse Rhythm [Right Finger] Regular Pulse Strength [Right Finger] Normal Respiratory Rate 20 19 Respiratory Effort / Characteristics Non-Labored Respiratory Depth Normal Respiratory Pattern Regular Blood Pressure 137/97 Blood Pressure [Right Arm] 113/78 Blood Pressure Mean 110 Blood Pressure Mean [Right Arm] 89 Blood Pressure Position Pulse Oximetry 99 99 Oxygen Delivery Method Room Air Room Air Sepsis Recent Fever Within 48 Hours Sepsis New/Unexplained Change in Mental Status Sepsis Action Taken by Nursing Laboratory Data 05/06/22 21:03 05/06/22 21:03 Lab Results 0205/06/22 05/06/22 Range/Units 21:03 21:03 21:03 WBC 9.96 (4.8-10.8) K/ul RBC 4.34 L (4.70-6.10) M/uL Hgb 12.7 L (14.0-18.0) g/dl Hct 37.2 L (42.0-52.0) % MCV 85.7 (80.0-100.0) fL MCH 29.3 (25.0-34.0) pg MCHC 34.1 (32.0-36.0) g/dL RDW Std Deviation 37.2 (36.4-46.3) fL RDW Coeff of Arturo 12.0 (11.5-14.5) % Plt Count 223 (130-400) K/uL MPV 9.5 (9.4-12.4) fL Immature Gran % (Auto) 0.8 % Neut % (Auto) 80.0 % Lymph % (Auto) 11.9 % [place] % (Auto) 6.4 % Eos % (Auto) 0.5 % Baso % (Auto) 0.4 % Neut # (Auto) 7.96 H (1.40-6.50) K/uL Lymph # (Auto) 1.19 L (1.2-3.4) K/uL [place] # (Auto) 0.64 H (0.11-0.59) K/uL Eos # (Auto) 0.05 (0-0.50) K/uL Baso # (Auto) 0.04 (0-0.2) K/uL Immature Gran # (Auto) 0.08 (0.01-0.20) K/uL PT 10.7 (9.0-12.0) Seconds INR 1.0 (0.9-1.1) APTT 28.5 (21.0-31.0) Seconds PTT Ratio 1.0 Sodium 127 L (136-145) mmol/L Potassium 4.3 (3.5-5.1) mmol/L Chloride 92 L (98-107) mmol/L Carbon Dioxide 27 (21-32) mmol/L Anion Gap 8 (3-11) BUN 19 (6-23) mg/dl Creatinine 1.09 (0.6-1.4) mg/dl Est Cr Clr Drug Dosing Not Reportable Est GFR ( Amer) 77.6 ml/min Est GFR (Non-Af Amer) 67.0 ml/min BUN/Creatinine Ratio 17.4 (10-20) Glucose 233 H (70-99(Fasting)) mg/dl Calcium 8.9 (8.5-10.1) mg/dl Phosphorus (2.5-4.9) mg/dl Magnesium (1.7-2.4) mg/dl Total Bilirubin 0.8 (0.2-1.0) mg/dl AST 15 (13-39) U/L ALT 22 (7-52) U/L Alkaline Phosphatase 85 (34-104) U/L Troponin I High Sens 8.2 (0-20) pg/ml Total Protein 7.5 (6.0-8.3) gm/dl Albumin 4.1 (3.4-5.0) gm/dl Globulin 3.4 (2.5-4.0) gm/dl Albumin/Globulin Ratio 1.2 (0.9-2) SARS-CoV-2, RNA, NAAT (NEGATIVE) 05/07/22 05/07/22 Range/Units 00:30 01:05 WBC (4.8-10.8) K/ul RBC (4.70-6.10) M/uL Hgb (14.0-18.0) g/dl Hct (42.0-52.0) % MCV (80.0-100.0) fL MCH (25.0-34.0) pg MCHC (32.0-36.0) g/dL RDW Std Deviation (36.4-46.3) fL RDW Coeff of Arturo (11.5-14.5) % Plt Count (130-400) K/uL MPV (9.4-12.4) fL Immature Gran % (Auto) % Neut % (Auto) % Lymph % (Auto) % [place] % (Auto) % Eos % (Auto) % Baso % (Auto) % Neut # (Auto) (1.40-6.50) K/uL Lymph # (Auto) (1.2-3.4) K/uL [place] # (Auto) (0.11-0.59) K/uL Eos # (Auto) (0-0.50) K/uL Baso # (Auto) (0-0.2) K/uL Immature Gran # (Auto) (0.01-0.20) K/uL PT (9.0-12.0) Seconds INR (0.9-1.1) APTT (21.0-31.0) Seconds PTT Ratio Sodium (136-145) mmol/L Potassium (3.5-5.1) mmol/L Chloride (98-107) mmol/L Carbon Dioxide (21-32) mmol/L Anion Gap (3-11) BUN (6-23) mg/dl Creatinine (0.6-1.4) mg/dl Est Cr Clr Drug Dosing Est GFR ( Amer) ml/min Est GFR (Non-Af Amer) ml/min BUN/Creatinine Ratio (10-20) Glucose (70-99(Fasting)) mg/dl Calcium (8.5-10.1) mg/dl Phosphorus 3.0 (2.5-4.9) mg/dl Magnesium 1.8 (1.7-2.4) mg/dl Total Bilirubin (0.2-1.0) mg/dl AST (13-39) U/L ALT (7-52) U/L Alkaline Phosphatase (34-104) U/L Troponin I High Sens 7.6 (0-20) pg/ml Total Protein (6.0-8.3) gm/dl Albumin (3.4-5.0) gm/dl Globulin (2.5-4.0) gm/dl Albumin/Globulin Ratio (0.9-2) SARS-CoV-2, RNA, NAAT NEGATIVE (NEGATIVE) Administered Medications Amlodipine Besylate (Amlodipine Besylate 5 Mg Tab) 10 mg PO [facility] Stop: 06/06/22 08:59 Last Admin: 05/07/22 08:35 Dose: 10 mg Documented By: SML Aspirin (Aspirin 81 Mg Ectab) 81 mg PO [facility] Stop: 06/06/22 08:59 Last Admin: 05/07/22 08:38 Dose: 81 mg Documented By: SML Atorvastatin Calcium (Atorvastatin 40 Mg Tab) 40 mg PO [facility] Stop: 06/06/22 08:59 Last Admin: 05/07/22 08:38 Dose: 40 mg Documented By: SML Baclofen (Baclofen 20 Mg Tab) 20 mg PO BID PRN PRN Reason: MUSCLE SPASMS Stop: 06/06/22 02:57 Last Admin: 05/07/22 19:51 Dose: 20 mg Documented By: Admin: 05/07/22 08:37 Dose: 20 mg Documented By: NANCIE Enoxaparin Sodium (Enoxaparin Inj 40 Mg/0.4 Ml Syr) 40 mg SQ Q24H [facility] Stop: 06/06/22 08:59 Last Admin: 05/07/22 08:39 Dose: 40 mg Documented By: NANCIE Gabapentin (Gabapentin 300 Mg Cap) 300 mg PO QID [facility] Stop: 06/06/22 08:59 Last Admin: 05/07/22 19:51 Dose: 300 mg Documented By: Admin: 05/07/22 17:17 Dose: 300 mg Documented By: Admin: 05/07/22 12:28 Dose: 300 mg Documented By: Admin: 05/07/22 08:38 Dose: 300 mg Documented By: NANCIE Insulin Aspart (Insulin Aspart Per Unit) 0 units SC ACHS [facility] Stop: 06/06/22 07:29 Last Admin: 05/07/22 21:10 Dose: 1 units Documented By: ANNE Co-signed By: SANTI Admin: 05/07/22 17:15 Dose: 5 units Documented By: NANCIE Co-signed By: JEREMÍAS Admin: 05/07/22 12:56 Dose: 2 units Documented By: NANCIE Co-signed By: JEREMÍAS Admin: 05/07/22 08:44 Dose: 5 units Documented By: NANCIE Co-signed By: JEREMÍAS Insulin Glargine (Lantus Per Unit Charge) 7 units SQ BID [facility] Stop: 06/06/22 08:59 Last Admin: 05/07/22 21:10 Dose: 7 units Documented By: ANNE Co-signed By: SANTI Admin: 05/07/22 08:45 Dose: 7 units Documented By: NANCIE Co-signed By: JEREMÍAS Metoprolol Succinate (Metoprolol Succ 25mg Ext Rel Tab) 25 mg PO DAILY [facility] Stop: 06/06/22 08:59 Last Admin: 05/07/22 08:38 Dose: 25 mg Documented By: NANCIE Oxycodone HCl (Oxycodone Hcl 15 Mg Tabcr (Oxycontin)) 30 mg PO Q12H [facility] Stop: 05/21/22 05:59 Last Admin: 05/07/22 18:19 Dose: 30 mg Documented By: Admin: 05/07/22 05:50 Dose: 30 mg Documented By: Tamsulosin HCl (Tamsulosin Hcl 0.4 Mg Cap) 0.4 mg PO HS JEY Stop: 06/06/22 20:59 Last Admin: 05/07/22 19:51 Dose: 0.4 mg Documented By: Discontinued Medications Sodium Chloride (Nss 1000ml) 500 mls @ 999 mls/hr IV .Q31M ONE Stop: 05/06/22 23:41 Last Infusion: 05/06/22 23:59 Dose: 0 mls/hr Documented By: Admin: 05/06/22 23:21 Dose: 999 mls/hr Documented By: JADE Lactated Ringer's (Lr) 1,000 mls @ 100 mls/hr IV .Q10H JEY Stop: 05/07/22 22:57 Last Infusion: 05/07/22 22:18 Dose: 0 mls/hr Documented By: Admin: 05/07/22 12:27 Dose: 100 mls/hr Documented By: Infusion: 05/07/22 12:27 Dose: 100 mls/hr Documented By: Admin: 05/07/22 03:08 Dose: 100 mls/hr Documented By: ANNE Ioversol (Optiray 320 500ml) 115 ml IV ONCE ONE Stop: 05/06/22 23:55 Last Admin: 05/06/22 23:56 Dose: 115 ml Documented By: XOCHITL Oxycodone HCl (Oxycodone Hcl 15 Mg Tabcr (Oxycontin)) 30 mg PO Q12H JEY Stop: 05/21/22 02:59 Last Admin: 05/07/22 04:05 Dose: Not Given Documented By: Discharge Plan Visit Data Chief Complaint: Chest Pain Stated Complaint: COVID WEEKS AGO,CHEST PAINS,SOB ED Provider: Krishna Mcintyre Discharge Problem: Chest pain, Hyponatremia, Tachycardia Patient Disposition: Admitted As Inpatient Discharge Instructions Interventions: ED Discharge Assessment Last Done: 05/07/22 02:24
[2022-05-06] MEDS ORDERED: OPTIRAY 320 500ml IV ONE (23:54)
--- NOTE | 2022-05-07 01:38 | History & Physical Report ---
Date of Service May 07, 2022 Assessment & Plan (1) Tachycardia: Plan: 72-year-old male with history of hypertension, diabetes, CAD status post stent to RCA, recent COVID-19 pneumonia presenting with persistent shortness of breath, fatigue, body pain. Found to be tachycardic in the ER heart rate ranging 100-1 20. Sinus with no acute ischemic changes present on EKG. Patient initially described chest pain however upon further questioning seems to be more like flank pain. He denies substernal chest discomfort, palpitations. Suspect the tachycardia is multifactorial, predominantly secondary to dehydration. Stable normochromic/normocytic anemia. Stable hyponatremia. CTA with no evidence of PE. Adequate oxygenation on room air. Observation to medical telemetry IV fluid resuscitation with LR at 100 mL/h x 2 L Monitor heart rate Check magnesium and phosphorus and replete as needed (2) Chronic pain syndrome: Plan: Patient with chronic neck and back pain. At home he is on oxymorphone 30 mg p.o. twice daily which he takes at 12 midnight and 12 noon. He takes Oxy Contin 5 mg p.o. twice daily as well. Oxymorphone not on formulary, will treat with oxycodone 30 mg p.o. twice daily OxyContin 5 mg p.o. every 6 hours as needed. If patient is requiring frequent OxyContin dosing will increase oxycodone. Tylenol as needed Rescue Narcan as needed (3) CAD (coronary artery disease), [place] coronary artery: Plan: Patient with history of coronary artery disease status post drug-eluting stent to RCA in October 2020. He denies chest pain. Troponin x2 unremarkable. EKG with no acute ischemic changes Continue aspirin Continue atorvastatin Continue metoprolol Continue to monitor (4) Obstructive sleep apnea: Plan: Chronic. 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 Stable. Continue Flomax 0.4 mg p.o. nightly Monitor urine output (6) DM2 (diabetes mellitus, type 2): Plan: Elevated blood sugar = 233. Last hemoglobin A1c on 03/08/2022 = 7.3. Patient is on metformin 500 mg p.o. twice daily Lantus 7 units twice daily with insulin sliding scale Goal blood sugar [id number] Carb consistent diet as tolerated (7) Hypertension: Plan: Blood pressure mildly elevated Continue amlodipine 10 mg p.o. daily Continue metoprolol 25 mg p.o. daily Pain management as above FENLR at 100 mL/h x 2 L, monitor electrolytes and replete as needed, heart healthy/consistent carb diet as tolerated ProphylaxisLovenox Codefull per discussion with patient Dispositionobservation to medical telemetry History of Present Illness Chief Complaint: Body pain, flank pain Primary Care Provider: Loy Browning, MELISSA, AMIRAH Jere Borrego is a pleasant 72-year-old male with history of diabetes, hypertension, CAD status JOO to RCA in October 2020, rectal cancer status post colostomy and HARJEET presenting with persistent shortness of breath, body aches, flank pain also with complaint of dizziness and near syncope with positional changes. Patient was recently admitted to [facility] from 04/18 -04/19/2022 with confusion secondary to COVID-19 pneumonia. He was treated with supplemental oxygen, remdesivir and dexamethasone. He was discharged home to complete 5-day course of dexamethasone. Since then, he reports he has not been feeling well. He has persistent shortness of breath and feels as though he cannot take a deep breath. He also reports dyspnea with minimal exertion and easy fatigability. He becomes dizzy with positional changes, feeling that he may pass out. Also with generalized body aches. He reports some bilateral flank pain today as well. He has had poor appetite and has not been eating or drinking well for the last several days. He denies fever, chills, abdominal pain, nausea, vomiting, diarrhea or constipation. Patient discussed the symptoms with his primary care physician and was given a prescription for amoxicillin. In the ER patient is afebrile, sinus tachycardia with rates ranging [id number]. ER course: Normal saline 500 mL Allergies Allergy/AdvReac Type Severity Reaction Status Date / Time rosuvastatin AdvReac Severe Myalgia Verified 05/06/22 22:38 Home Medications Medication Instructions Recorded Confirmed Type acetaminophen 500 mg capsule 500 mg PO Q8H PRN Pain 10/12/20 05/06/22 History aspirin 81 mg tablet,delayed 81 mg PO QAM #30 tabs 11/05/20 05/06/22 Rx release naloxone 4 mg/actuation nasal spray 1 spray intranasal Q3M PRN OVER 12/19/20 05/06/22 History SEDATION loratadine 10 mg tablet (Claritin) 10 mg PO QAM PRN Congestion 04/19/21 05/06/22 History multivitamin 1 tab PO DAILY 04/19/21 05/06/22 History atorvastatin 40 mg tablet 40 mg PO QAM #90 tabs 11/23/21 05/06/22 Rx metoprolol succinate 25 mg 25 mg PO DAILY #90 tabs 01/17/22 05/06/22 Rx tablet,extended release 24 hr amlodipine 10 mg tablet 10 mg PO QAM #90 tabs 02/16/22 05/06/22 Rx tamsulosin 0.4 mg capsule 0.4 mg PO HS #90 caps 03/02/22 05/06/22 Rx oxycodone 5 mg tablet 5 mg PO BID Pain 30 days #60 tabs 04/21/22 05/06/22 Rx oxymorphone 30 mg tablet,extended 30 mg PO BID #60 tabs 04/21/22 05/06/22 Rx release,12 hr gabapentin 600 mg tablet 300 mg PO QID Unknown #60 tabs 04/26/22 05/06/22 Rx baclofen 20 mg tablet 20 mg PO BID PRN MUSCLE SPASMS 05/06/22 05/06/22 History metformin 500 mg tablet 500 mg PO BID 05/06/22 05/06/22 History Past Med/Surg History Medical History Acute upper gastrointestinal bleeding LYUBOV (acute kidney injury) Anxiety disorder BPH with obstruction/lower urinary tract symptoms CAD (coronary artery disease), [place] coronary artery Cervical fusion syndrome Chronic back pain DM2 (diabetes mellitus, type 2) High anion gap metabolic acidosis Hypertension Hypocalcemia Hypomagnesemia Hyponatremia Hypophosphatemia Hypoxia Metabolic acidosis Obstructive sleep apnea Osteoarthritis Partial small bowel obstruction Peripheral neuropathy Postlaminectomy syndrome of lumbosacral region SBO (small bowel obstruction) ST elevation (STEMI) myocardial infarction Statin myopathy Syncope Thumb pain Transaminitis Surgical History H/O inguinal hernia repair H/O resection of rectum History of rectal surgery Previous back surgery S/P cervical spinal fusion S/P drug eluting coronary stent placement S/P PTCA (percutaneous transluminal coronary angioplasty) S/P tonsillectomy and adenoidectomy Family History Father Cardiovascular disease Cardiac disorder Prostate cancer Mother Dementia Diabetes Other Hypertension No significant family history Denies family history of Ovarian cancer Myocardial infarction Breast cancer Colorectal cancer Social History Smoking Status: Light tobacco smoker Tobacco Type: Smokeless Tobacco (Dip or Chew) Age Started Using Tobacco: 17; Age Quit Using Tobacco: 24; packs per day: 1; Cigarettes Per Day: 20; Second Hand Exposure: No; Hx Alcohol Use: No Hx Substance Use: No Preferred Language: [place]er Communication Ability: Effective Visual Impairment: No Limitations Hearing Ability: Normal Mental Health Therapist Required: No Beliefs That Will Affect Care: None marital status: Current Living Situation: Spouse current occupational status: retired How many Children do You have: 4 Feels Safe at Home: Yes Childhood Exposure to Second-Hand Smoke: No caffeine: Yes during the past year weight has: remained stable Dental Care, Regularly: No Physical Activity Frequency: Daily Seatbelt Use: always Sunscreen Use: No Assistive Devices: Denture - Upper, Denture - Lower and Glasses Review of Systems Review of Systems: All systems reviewed & are unremarkable except as noted in HPI & below Physical Exam Physical Exam: General: patient resting comfortably, NAD, non-toxic in appearance, AA&O x 4, appears tired Skin: warm, dry, intact, no rashes or lesions HEENT: NC/AT, PERRL, EOMI, anicteric sclera, conjunctiva without injection, external ear normal to inspection and nontender, nares patent, dry mucus membranes, dentition intact, no oropharyngeal lesions, neck supple, trachea midline, no LAD, no thyromegaly, no JVD Heart: +S1/S2, regular, tachycardic, no m/r/g Lungs: equal air entry bilaterally, no rales/rhonchi/wheezes Abd: +BS, soft, NT/ND, no masses/organomegaly/ascites, colostomy present left lower quadrant Ext: warm, 2+ pulses in UE/LE bilaterally, no clubbing/cyanosis or edema Neuro: nonfocal, patient AA&O x 4, speech intact, no facial droop, moving all extremities on command with equal strength 5/5 Results & Data Results & Data ([facility]) Vital Signs (Past 12 Hours) Vital Signs Temp Pulse Pulse Resp BP BP Pulse Ox 05/07/22 00:30 108 H 12 97 05/07/22 00:30 152/96 H 05/07/22 00:00 109 H 17 99 05/07/22 00:00 148/112 H 05/06/22 23:52 98 05/06/22 23:52 138/90 05/06/22 23:00 111 H 19 137/97 99 05/06/22 21:49 108 H 20 113/78 99 05/06/22 21:49 95 05/06/22 21:53 120 H 05/06/22 20:49 36.5 C 87 20 129/79 99 O2 Del Method 05/07/22 00:30 05/07/22 00:30 05/07/22 00:00 05/07/22 00:00 05/06/22 23:52 05/06/22 23:52 05/06/22 23:00 Room Air 05/06/22 21:49 Room Air 05/06/22 21:49 Room Air 05/06/22 21:53 05/06/22 20:49 Room Air Laboratory Results Laboratory Results WBC 9.96 K/ul (4.8-10.8) 05/06/22 21:03 RBC 4.34 M/uL (4.70-6.10) L 05/06/22 21:03 Hgb 12.7 g/dl (14.0-18.0) L 05/06/22 21:03 Hct 37.2 % (42.0-52.0) L 05/06/22 21:03 MCV 85.7 fL (80.0-100.0) 05/06/22 21:03 MCH 29.3 pg (25.0-34.0) 05/06/22 21:03 MCHC 34.1 g/dL (32.0-36.0) 05/06/22 21:03 RDW Std Deviation 37.2 fL (36.4-46.3) 05/06/22 21:03 RDW Coeff of Arturo 12.0 % (11.5-14.5) 05/06/22 21:03 Plt Count 223 K/uL (130-400) 05/06/22 21:03 MPV 9.5 fL (9.4-12.4) 05/06/22 21:03 Immature Gran % (Auto) 0.8 % 05/06/22 21:03 Neut % (Auto) 80.0 % 05/06/22 21:03 Lymph % (Auto) 11.9 % 05/06/22 21:03 [place] % (Auto) 6.4 % 05/06/22 21:03 Eos % (Auto) 0.5 % 05/06/22 21:03 Baso % (Auto) 0.4 % 05/06/22 21:03 Neut # (Auto) 7.96 K/uL (1.40-6.50) H 05/06/22 21:03 Lymph # (Auto) 1.19 K/uL (1.2-3.4) L 05/06/22 21:03 [place] # (Auto) 0.64 K/uL (0.11-0.59) H 05/06/22 21:03 Eos # (Auto) 0.05 K/uL (0-0.50) 05/06/22 21:03 Baso # (Auto) 0.04 K/uL (0-0.2) 05/06/22 21:03 Immature Gran # (Auto) 0.08 K/uL (0.01-0.20) 05/06/22 21:03 PT 10.7 Seconds (9.0-12.0) 05/06/22 21:03 INR 1.0 (0.9-1.1) 05/06/22 21:03 APTT 28.5 Seconds (21.0-31.0) 05/06/22 21:03 PTT Ratio 1.0 05/06/22 21:03 Sodium 127 mmol/L (136-145) L 05/06/22 21:03 Potassium 4.3 mmol/L (3.5-5.1) 05/06/22 21:03 Chloride 92 mmol/L (98-107) L 05/06/22 21:03 Carbon Dioxide 27 mmol/L (21-32) 05/06/22 21:03 Anion Gap 8 (3-11) 05/06/22 21:03 BUN 19 mg/dl (6-23) 05/06/22 21:03 Creatinine 1.09 mg/dl (0.6-1.4) 05/06/22 21:03 Est Cr Clr Drug Dosing Not Reportable 05/06/22 21:03 Est GFR ( Amer) 77.6 ml/min 05/06/22 21:03 Est GFR (Non-Af Amer) 67.0 ml/min 05/06/22 21:03 BUN/Creatinine Ratio 17.4 (10-20) 05/06/22 21:03 Glucose 233 mg/dl (70-99(Fasting)) H 05/06/22 21:03 Calcium 8.9 mg/dl (8.5-10.1) 05/06/22 21:03 Total Bilirubin 0.8 mg/dl (0.2-1.0) 05/06/22 21:03 AST 15 U/L (13-39) 05/06/22 21:03 ALT 22 U/L (7-52) 05/06/22 21:03 Alkaline Phosphatase 85 U/L (34-104) 05/06/22 21:03 Troponin I High Sens 7.6 pg/ml (0-20) 05/07/22 01:05 Total Protein 7.5 gm/dl (6.0-8.3) 05/06/22 21:03 Albumin 4.1 gm/dl (3.4-5.0) 05/06/22 21:03 Globulin 3.4 gm/dl (2.5-4.0) 05/06/22 21:03 Albumin/Globulin Ratio 1.2 (0.9-2) 05/06/22 21:03 SARS-CoV-2, RNA, NAAT NEGATIVE (NEGATIVE) 05/07/22 00:30 Diagnostic Findings Chest x-rayby my interpretation, trachea is midline, cardiac shadow within normal limits, mild hyperinflation, no obvious infiltrate, pulmonary edema or pneumothorax, hardware in place in cervical and thoracolumbar spine CTA chest: Per stat read Comparison 04/18/2022. Stable 7 mm subpleural nodule right lower lobe and 9 mm subpleural nodule left lower lobe, advise follow-up. New small groundglass densities right upper lobe and left lower lobe, suspicious for viral pneumonia or other atypical infection. No evidence of PE. Enlarged main pulmonary artery which can be seen with pulmonary hypertension. Minimal emphysematous changes. Surgical changes lower cervical spine and thoracolumbar spine. Code Status & VTE Plan VTE Prophylaxis Plan VTE Prophylaxis will be ordered: Yes PG Care Time/CCT Total # of Minutes Spent Total Time Spent with Patient: Total time spent is greater than 50% in coordination of care (as documented) at patient's floor/unit and/or counseling patient: Coding Level of Care Code 63798 INT INP/OBS CARE 3/75MIN Diagnoses Tachycardia R00.0 Chronic pain syndrome G89.4 CAD (coronary artery disease), [place] coronary artery I25.10 [place] vs. 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
[2022-05-07 01:45] LABS: Troponin I High Sensitivity 7.6 pg/ml (0-20)
[2022-05-07] MEDS ORDERED: oxyCODONE HCL IR 5 MG TAB (IMMEDIATE RELEASE) PO PRN (02:58)
[2022-05-07] MEDS ORDERED: NALOXONE HCL 0.4 MG/1 ML VIAL/CARP IV PRN (02:58)
[2022-05-07] MEDS ORDERED: GLUCOSE 40% GEL 15 GM TUBE PO PRN (02:58)
[2022-05-07] MEDS ORDERED: GLUCAGON FOR INJ 1 MG VIAL SQ PRN (02:58)
[2022-05-07] MEDS ORDERED: DEXTROSE 50% 50 ML SYRINGE IV PRN (02:58)
[2022-05-07] MEDS ORDERED: GLUCOSE 10 TAB/TUBE PO PRN (02:58)
[2022-05-07] MEDS ORDERED: ACETAMINOPHEN 500 MG TAB PO PRN (02:58)
[2022-05-07] MEDS ORDERED: CARBOHYDRATES FOR HYPOGLYCEMIA PO PRN (02:58)
[2022-05-07] MEDS ORDERED: oxyCODONE HCL 15 MG TABCR (OxyCONTIN) PO SCH (03:00)
[2022-05-07] MEDS: LACTATED RINGER'S 1,000 ML IV SCH ×2 (03:08→12:27)
[2022-05-07 03:22] LABS: Magnesium 1.8 mg/dl (1.7-2.4)
[2022-05-07] MEDS: oxyCODONE HCL 15 MG TABCR (OxyCONTIN) PO SCH ×2 (05:50→18:19)
[2022-05-07 06:01] LABS: Appearance Urine Clear (Clear); Bilirubin Urine Negative (Negative); Blood Urine Negative (Negative); Color Urine Yellow; Glucose Urine UA Trace (Negative); Ketones Urine Negative (Negative); Leukocyte Esterase Urine Negative (Negative); Nitrite Urine Negative (Negative); Protein Urine Negative (Negative); Specific Gravity Urine 1.043 (1.000-1.030); Urobilinogen Urine Negative (Negative)
--- NOTE | 2022-05-07 07:44 | XRay Report ---
XR chest 1V portable HISTORY: Chest pain, nonspecific COMPARISON: Chest 04/18/2022. FINDINGS: The lungs are clear. Cardiac silhouette is normal in size. No pleural effusions. No pneumot horax. Spinal fusion hardware is again noted. IMPRESSION: No acute process. ACT 112: Negative or not required by law. Electronically signed by: Toan Springer M.D. 05/07/2022 7:43 AM
[2022-05-07] MEDS: amLODIPine BESYLATE 5 MG TAB PO SCH (08:35)
[2022-05-07] MEDS: BACLOFEN 20 MG TAB PO PRN ×2 (08:37→19:51)
[2022-05-07] MEDS: GABAPENTIN 300 MG CAP PO SCH ×4 (08:38→19:51)
[2022-05-07] MEDS: METOPROLOL SUCC 25MG EXT REL TAB PO SCH (08:38)
[2022-05-07] MEDS: ASPIRIN 81 MG ECTAB PO SCH (08:38)
[2022-05-07] MEDS: ATORVASTATIN 40 MG TAB PO SCH (08:38)
[2022-05-07] MEDS: ENOXAPARIN INJ 40 MG/0.4 ML SYR SQ SCH (08:39)
[2022-05-07] MEDS: INSULIN ASPART PER UNIT SC SCH ×4 (08:44→21:10)
[2022-05-07] MEDS: LANTUS PER UNIT CHARGE SQ SCH ×2 (08:45→21:10)
--- NOTE | 2022-05-07 09:17 | CT Scan Report ---
CT ANGIOGRAPHY OF THE CHEST, PULMONARY EMBOLUS PROTOCOL CLINICAL HISTORY: Tachycardia, light headed, CP, recent, Covid. COMPARISON STUDY: Chest CT April 18, 2022 and chest radiograph performed earlier today. TECHNIQUE: Following IV administration of 115 mL of Optiray, helical axial images of the chest were o btained utilizing the pulmonary embolus protocol. Maximal intensity projections and sagittal and cor onal reformats were viewed on an independent 3D workstation. IV contrast was administered without co mplication. Automated exposure control was utilized for the study. A dose lowering technique was ut ilized adhering to the principles of ALARA. CT DOSE: 483.14 mGy.cm FINDINGS: No pulmonary emboli are present. There is mild dilatation of the central pulmonary arterie s. Mild dilatation of the ascending aorta, measuring 4.1 cm, is noted. There is no thoracic aortic di ssection. There is mild cardiomegaly. No pericardial effusion is present. There is no thoracic lympha denopathy. No pneumothorax or effusion. Scattered mild groundglass opacities have developed since [facility] CT April 18, 2022. Bilateral lower lobe subpleural nodules are unchanged since CT of October 10 13. These are benign given stability. Mild emphysema is present. There are no acute fractures within the bony thorax. Central airways are patent. Hepatic steatosis is incidentally noted. Postoperative f indings within the spine are present. IMPRESSION: 1. No pulmonary emboli identified. 2. Interval development of mild groundglass opacities within lungs which favor an infectious process such as viral pneumonia. 3. Emphysema. ACT 112: Negative or not required by law. Electronically signed by: Salvador Sim M.D. 05/07/2022 9:16 AM
--- NOTE | 2022-05-07 09:58 | Electrocardiogram Report ---
Test Reason : Blood Pressure : / mmHG Vent. Rate : 125 BPM Atrial Rate : 125 BPM P-R Int : 148 ms QRS Dur : 086 ms QT Int : 318 ms P-R-T Axes : 062 022 056 degrees QTc Int : 458 ms Sinus tachycardia Possible Left atrial enlargement Possible Lateral infarct (cited on or before 20-APR-2020) Inferior infarct (cited on or before 20-APR-2020) Abnormal ECG When compared with ECG of 18-APR-2022 03:08, No significant change was found Confirmed by Danny Cordero ([id number]) on 05/07/2022 9:58:00 AM Referred By: REFERRED SELF Confirmed By:Danny Cordero
[2022-05-07] MEDS: TAMSULOSIN HCL 0.4 MG CAP PO SCH (19:51)
[2022-05-08] MEDS: oxyCODONE HCL 15 MG TABCR (OxyCONTIN) PO SCH ×2 (05:53→18:25)
[2022-05-08 08:07] LABS: Hematocrit (blood only) 30.5 % (42.0-52.0); Hemoglobin 10.8 g/dl (14.0-18.0); Mean Corpuscular Hemoglobin 29.3 pg (25.0-34.0); Mean Corpuscular Hgb Conc 35.4 g/dL (32.0-36.0); Mean Corpuscular Volume 82.7 fL (80.0-100.0); Platelet Count 174 K/uL (130-400); RDW Coefficient of Variation 11.9 % (11.5-14.5); RDW Standard Deviation 35.5 fL (36.4-46.3); Red Blood Count 3.69 M/uL (4.70-6.10); White Blood Count 8.23 K/ul (4.8-10.8)
[2022-05-08] MEDS: INSULIN ASPART PER UNIT SC SCH ×4 (08:39→20:14)
[2022-05-08] MEDS: LANTUS PER UNIT CHARGE SQ SCH ×2 (08:39→20:14)
[2022-05-08] MEDS: ASPIRIN 81 MG ECTAB PO SCH (08:40)
[2022-05-08] MEDS: BACLOFEN 20 MG TAB PO PRN ×2 (08:40→20:14)
[2022-05-08] MEDS: GABAPENTIN 300 MG CAP PO SCH ×4 (08:40→20:15)
[2022-05-08] MEDS: amLODIPine BESYLATE 5 MG TAB PO SCH (08:40)
[2022-05-08 08:41] LABS: BUN Creatinine Ratio 17.3 (10-20); Calcium 8.5 mg/dl (8.5-10.1); Creatinine Clr Calc Pharmacy 93.4 ml/min; Est GFR (African American) 105.5 ml/min; Potassium 4.3 mmol/L (3.5-5.1)
[2022-05-08] MEDS: ENOXAPARIN INJ 40 MG/0.4 ML SYR SQ SCH (08:41)
[2022-05-08] MEDS: METOPROLOL SUCC 25MG EXT REL TAB PO SCH (08:41)
[2022-05-08] MEDS: ATORVASTATIN 40 MG TAB PO SCH (08:41)
[2022-05-08] MEDS ORDERED: SODIUM CHLORIDE 0.9% 1000ML 1,000 ML IV SCH (15:15)
--- NOTE | 2022-05-08 18:19 | Hospitalist Progress Note ---
Date of Service May 08, 2022 Assessment & Plan (1) Tachycardia: Plan: 72-year-old male with history of hypertension, diabetes, CAD status post stent to RCA, recent COVID-19 pneumonia presenting with persistent shortness of breath, fatigue, body pain. Found to be tachycardic in the ER heart rate ranging 100-1 20. Sinus with no acute ischemic changes present on EKG. Patient initially described chest pain however upon further questioning seems to be more like flank pain. He denies substernal chest discomfort, palpitations. Suspect the tachycardia is multifactorial, predominantly secondary to dehydration. Stable normochromic/normocytic anemia. Stable hyponatremia. CTA with no evidence of PE. Adequate oxygenation on room air. Observation to medical telemetry IV fluid resuscitation with LR at 100 mL/h x 2 L Monitor heart rate Check magnesium and phosphorus and replete as needed 05/08-patient's tachycardia has improved with IV fluids Patient p.o. intake as per family has been poor over the past few weeks Serum sodium today 125 compared to 127 yesterday and etiology for hyponatremia not clear We will check urine sodium and assess Andie to determine if patient is volume depleted Differential of hyponatremia could be hypovolemic hyponatremia or euvolemic hyponatremia secondary to poor p.o. intake And will treat based on fractional excretion of sodium and urine osmolality Patient's family also reports that patient has intermittent abdominal discomfort associated with his poor p.o. intake Check CT abdomen (2) Chronic pain syndrome: Plan: Patient with chronic neck and back pain. At home he is on oxymorphone 30 mg p.o. twice daily which he takes at 12 midnight and 12 noon. He takes Oxy Contin 5 mg p.o. twice daily as well. Oxymorphone not on formulary, will treat with oxycodone 30 mg p.o. twice daily OxyContin 5 mg p.o. every 6 hours as needed. If patient is requiring frequent OxyContin dosing will increase oxycodone. Tylenol as needed Rescue Narcan as needed (3) CAD (coronary artery disease), [place] coronary artery: Plan: Patient with history of coronary artery disease status post drug-eluting stent to RCA in October 2020. He denies chest pain. Troponin x2 unremarkable. EKG with no acute ischemic changes Continue aspirin Continue atorvastatin Continue metoprolol Continue to monitor (4) Obstructive sleep apnea: Plan: Chronic. 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 Stable. Continue Flomax 0.4 mg p.o. nightly Monitor urine output (6) DM2 (diabetes mellitus, type 2): Plan: Elevated blood sugar = 233. Last hemoglobin A1c on 03/08/2022 = 7.3. Patient is on metformin 500 mg p.o. twice daily Lantus 7 units twice daily with insulin sliding scale Goal blood sugar [id number] Carb consistent diet as tolerated (7) Hypertension: Plan: Blood pressure mildly elevated Continue amlodipine 10 mg p.o. daily Continue metoprolol 25 mg p.o. daily Pain management as above Admission and Anticipated Discharge Date Admission Date: May 07, 2022 Subjective Patient seen at bedside with his family in the room Patient reports that his shortness of breath and palpitation is improved Patient however has been having poor p.o. intake over the past few weeks Patient's family also concerned about patient's underlying hyponatremia that has not been worked up yet And serum sodium today is 125 compared to 127 yesterday Physical Exam Physical Exam: Head and ENT no thyroid enlargement trachea midline Oral mucosa dry Cardiovascular S1-S2 are normal no S3 Lungs bilateral air entry fair no wheezing Abdomen soft nondistended positive bowel sounds no rebound tenderness Extremity shows trace edema Neurologically no focal deficits Skin shows no rash no cyanosis Results & Data Results & Data ([facility]) Vital Signs (Past 12 Hours) Vital Signs Temp Pulse Pulse Resp BP BP Pulse Ox 05/08/22 15:41 36.7 C 99 H 18 139/83 97 05/08/22 15:30 97 H 05/08/22 11:42 36.5 C 102 H 20 137/84 96 05/08/22 08:17 37.0 C 101 H 18 145/94 H 95 05/08/22 07:22 112 H O2 Del Method 05/08/22 15:41 Room Air 05/08/22 15:30 05/08/22 11:42 Room Air 05/08/22 08:17 Room Air 05/08/22 07:22 Laboratory Results Short CBC 05/08/22 Range/Units 07:15 WBC 8.23 (4.8-10.8) K/ul Hgb 10.8 L (14.0-18.0) g/dl Hct 30.5 L (42.0-52.0) % Plt Count 174 (130-400) K/uL BMP 05/08/22 07:15 Sodium 125 L Potassium 4.3 Chloride 92 L Carbon Dioxide 26 BUN 13 Creatinine 0.75 D Glucose 173 H Calcium 8.5 PG Care Time/CCT Total # of Minutes Spent Total Time Spent with Patient: Total time spent is greater than 50% in coordination of care (as documented) at patient's floor/unit and/or counseling patient: Coding Level of Care Code 34528 SUB INP/OBS CARE 235MIN Diagnoses Tachycardia R00.0 Chronic pain syndrome G89.4 CAD (coronary artery disease), [place] coronary artery I25.10 Associated angina: without angina [place] vs. transplanted heart: [place] heart Obstructive sleep apnea G47.33 BPH with obstruction/lower urinary tract symptoms N40.1; N13.8 DM2 (diabetes mellitus, type 2) E11.36 Diabetes mellitus complication detail: with cataract Diabetes mellitus complication status: with ophthalmic complications Diabetes mellitus chcf insulin use: without chcf use Hypertension I10 Hypertension type: primary hypertension (3) CAD (coronary artery disease), [place] coronary artery Associated angina: without angina [place] vs. 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
--- NOTE | 2022-05-08 18:31 | CT Scan Report ---
CT OF THE ABDOMEN AND PELVIS WITHOUT CONTRAST CLINICAL HISTORY: nausea, poor appetite, weight loss COMPARISON STUDY: CT of the abdomen and pelvis April 26, 2021. TECHNIQUE: Axial images of the abdomen and pelvis were obtained without IV contrast. Images were revi ewed in the axial, sagittal, and coronal planes. Automated exposure control was utilized for the oralia dy. A dose lowering technique was utilized adhering to the principles of ALARA. FINDINGS: Nodules within the lower lungs are unchanged from earlier exams. These are benign given sta bility. No pneumatosis, free air or portal venous gas is present. There is hepatic steatosis. No bili fiorella or pancreatic ductal dilatation is present. Layering hyperdensity within the gallbladder is noted . There is no evidence for acute cholecystitis. Spleen, adrenal glands and kidneys are unremarkable. There is no hydronephrosis. Note is made of wall thickening of the first and second portion of the du odenum with adjacent stranding. There is a focal outpouching of the superior wall of the duodenal bul b on axial image 137 of 446. This is suggestive of a duodenal ulcer. There is no extraluminal gas. Re ctal resection is noted with descending colostomy. There is no evidence for a bowel obstruction. Prom inent left inguinal lymph nodes remain unchanged from earlier exams. Postoperative findings within th e spine are noted. No acute fractures are identified. IMPRESSION: 1. Findings with duodenitis/peptic ulcer disease of the proximal duodenum with an ulcer of the duoden al bulb, as described above. No extraluminal gas. 2. No bowel obstruction. Postoperative findings, as above. 3. Hepatic steatosis. 4. Layering hyperdense which are within the gallbladder. No evidence for acute cholecystitis. ACT 112: Negative or not required by law. Electronically signed by: Salvador Sim M.D. 05/08/2022 6:29 PM
[2022-05-08 18:35] LABS: Potassium Random Urine 59.2 mmol/L
[2022-05-08 18:41] LABS: Creatinine Urine Random 95.6 mg/dl; Protein Creatinine Ratio Urine 0.1 (0-0.2)
[2022-05-08] MEDS: TAMSULOSIN HCL 0.4 MG CAP PO SCH (20:14)
[2022-05-09] MEDS: oxyCODONE HCL 15 MG TABCR (OxyCONTIN) PO SCH ×2 (05:37→17:28)
[2022-05-09 07:28] LABS: Basophils # (auto) 0.01 K/uL (0-0.2); Basophils % (auto) 0.1 %; Eosinophils # (auto) 0.01 K/uL (0-0.50); Eosinophils % (auto) 0.1 %; Hematocrit (blood only) 28.1 % (42.0-52.0); Immature Granulocytes # (auto) 0.05 K/uL (0.01-0.20); Immature Granulocytes % (auto) 0.7 %; Lymphocytes # (auto) 0.57 K/uL (1.2-3.4); Lymphocytes % (auto) 8.1 %; Mean Corpuscular Hemoglobin 29.1 pg (25.0-34.0); Mean Corpuscular Hgb Conc 35.6 g/dL (32.0-36.0); Mean Corpuscular Volume 81.7 fL (80.0-100.0); Mean Platelet Volume 9.1 fL (9.4-12.4); Monocytes # (auto) 0.61 K/uL (0.11-0.59); Monocytes % (auto) 8.7 %; Neutrophils # (auto) 5.79 K/uL (1.40-6.50); Neutrophils % (auto) 82.3 %; Platelet Count 159 K/uL (130-400); RDW Standard Deviation 34.8 fL (36.4-46.3); Red Blood Count 3.44 M/uL (4.70-6.10); White Blood Count 7.04 K/ul (4.8-10.8)
--- NOTE | 2022-05-09 07:29 | Hospitalist Progress Note ---
Date of Service May 09, 2022 Assessment & Plan (1) Tachycardia: Plan: Suspect the tachycardia likely secondary to deconditioning. Stable normochromic/normocytic anemia. CTA with no evidence of PE. Continue to monitor on telemetry; has been in sinus rhythm Check magnesium and phosphorus and replete as needed (2) Hyponatremia: Plan: - Sodium on etyvpmjrw=120, down to 121 today. Urine osm= 650, Rubina= 123 - Was given 1L NS yesterday with decrease in sodium - Family does note that he has been hyponatremic in the past - Etiology likely SIADH; plan for 1200mL fluid restriction and salt tabs 1g BID (3) Peptic ulcer: Plan: - CT abdomen pelvis with duodenitis/peptic ulcer disease of the proximal duodenum - Will start on Protonix, famotidine, Carafate - Defer GI consult now, if pain/appetite does not improve will consider consult. Will need EGD either this hospitalization or as an OP (4) Normocytic normochromic anemia: Plan: - 12.7 on admission, down to 10 today. Appears baseline around 10 - Continue to trend (5) Chronic pain syndrome: Plan: Patient with chronic neck and back pain. At home he is on oxymorphone 30 mg p.o. twice daily which he takes at 12 midnight and 12 noon. He takes Oxy Contin 5 mg p.o. twice daily as well. Oxymorphone not on formulary, will treat with oxycodone 30 mg p.o. twice daily OxyContin 5 mg p.o. every 6 hours as needed. If patient is requiring frequent OxyContin dosing will increase oxycodone. Tylenol as needed Rescue Narcan as needed (6) CAD (coronary artery disease), [place] coronary artery: Plan: Patient with history of coronary artery disease status post drug-eluting stent to RCA in October 2020. He denies chest pain. Troponin x2 unremarkable. EKG with no acute ischemic changes Continue aspirin Continue atorvastatin Continue metoprolol Continue to monitor (7) Obstructive sleep apnea: Plan: Chronic. 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 Stable. Continue Flomax 0.4 mg p.o. nightly Monitor urine output (9) DM2 (diabetes mellitus, type 2): Plan: Last hemoglobin A1c on 03/08/2022 = 7.3. Patient is on metformin 500 mg p.o. twice daily Lantus 7 units twice daily with insulin sliding scale Goal blood sugar 164203 Carb consistent diet as tolerated (10) Hypertension: Plan: Blood pressure mildly elevated Continue amlodipine 10 mg p.o. daily Continue metoprolol 25 mg p.o. daily Pain management as above Admission and Anticipated Discharge Date Admission Date: May 07, 2022 Supervising Physician Co-Signing Physician Notes I personally examined the patient and verified all carrion points of history and exam, discussed case, and agree with decision making with Dr Scott. Feeling weak. Feels easily full and somewhat nauseated after eating. Has not really eaten well since COVID diagnosis. Progressively weaker at home as well. Vitals noted, in general he is awake and alert pleasant but fatigued no distress. HEENT normocephalic atraumatic mucous membranes moist. Breathing unlabored no accessory muscle use good effort. Skin shows no rashes no pallor or icterus. Neuro without focal deficits. Abdomen is soft but he does have epigastric tenderness voluntary guarding no rebound no rigidity. Failure to thriveappears to be a mixed picture of deconditioning, malnutritionlikely due to peptic ulcer disease, and deconditioning/PUD/malnutrition all on the heels of what seems to have been a fairly significant COVID infection earlier in the month. PT/OT, encourage nutrition, treat PUD with twice daily Protonix, twice daily Pepcid, 4 times isiah y Carafateand wean as tolerated. If unable to improve p.o. intake in the next 2 days or so, then consult GI for EGD. Hyponatremia likely a degree of either baseline SIADH, or baseline polydipsiaexacerbated by low solute state and acute illness. Given that currently it is behaving much like SIADH, fluid restrict, salt replace, follow. DVT prophylaxisLovenox Subjective Still does not have much of an appetite. States that he does have some epigastric pain. At home drinks a lot of fluids, but does eat a lot. Review of Systems Review of Systems: As per above Physical Exam Physical Exam: Constitutional: well-appearing, no acute distress HEENT: NCAT, no conjunctival injection CV: regular rhythm, no murmur appreciated, extremities well-perfused, no LE edema Resp: CTABL, no wheezes/rales/rhonchi appreciated, no increased work of breathing GI: epigastric tenderness, BS normoactive MSK: no gross deformities appreciated Skin: warm, dry, no rash appreciated Neuro: alert, oriented, no focal neurologic deficit appreciated Results & Data Results & Data ([facility]) Vital Signs (Past 12 Hours) Vital Signs Temp Pulse Pulse Resp BP Pulse Ox O2 Del Method 05/08/22 22:00 103 H 05/08/22 23:13 37.8 C H 110 H 16 129/76 94 Room Air 05/08/22 19:33 37.1 C 101 H 16 135/85 96 Room Air Resident Activity Tracking Resident Involvement: Resident Care Provided Care Provided: Adult Hospital Medicine (6) CAD (coronary artery disease), [place] coronary artery Associated angina: without angina [place] vs. transplanted heart: [place] heart Qualified Code(s): I25.10 - Atherosclerotic heart disease of [place] coronary artery without angina pectoris (9) DM2 (diabetes mellitus, type 2) Diabetes mellitus complication detail: with cataract Diabetes mellitus complication status: with ophthalmic complications Diabetes mellitus exterminator insulin use: without exterminator use Qualified Code(s): E11.36 - Type 2 diabetes mellitus with diabetic cataract (10) Hypertension Hypertension type: primary hypertension Qualified Code(s): I10 - Essential (primary) hypertension
[2022-05-09 07:46] LABS: BUN Creatinine Ratio 15.3 (10-20); Calcium 8.1 mg/dl (8.5-10.1); Creatinine Clr Calc Pharmacy 97.3 ml/min; Est GFR (African American) 107.3 ml/min; Est GFR (Non-African American) 92.5 ml/min; Potassium 3.9 mmol/L (3.5-5.1)
[2022-05-09] MEDS: INSULIN ASPART PER UNIT SC SCH ×4 (08:47→20:51)
[2022-05-09] MEDS: ENOXAPARIN INJ 40 MG/0.4 ML SYR SQ SCH (08:48)
[2022-05-09] MEDS: amLODIPine BESYLATE 5 MG TAB PO SCH (08:48)
[2022-05-09] MEDS: GABAPENTIN 300 MG CAP PO SCH ×4 (08:48→20:49)
[2022-05-09] MEDS: METOPROLOL SUCC 25MG EXT REL TAB PO SCH (08:49)
[2022-05-09] MEDS: ASPIRIN 81 MG ECTAB PO SCH (08:49)
[2022-05-09] MEDS: ATORVASTATIN 40 MG TAB PO SCH (08:49)
[2022-05-09] MEDS: LANTUS PER UNIT CHARGE SQ SCH ×2 (09:11→20:50)
[2022-05-09] MEDS ORDERED: PANTOprazole 40 MG TAB PO SCH (09:45)
[2022-05-09] MEDS: SODIUM CHLORIDE 1 GM TABLET PO SCH ×2 (15:32→20:49)
[2022-05-09 17:44] LABS: BUN Creatinine Ratio 15.6 (10-20); Calcium 8.1 mg/dl (8.5-10.1); Creatinine Clr Calc Pharmacy 77.9 ml/min; Est GFR (African American) 97.9 ml/min; Est GFR (Non-African American) 84.4 ml/min; Potassium 4.2 mmol/L (3.5-5.1)
[2022-05-09] MEDS: SUCRALFATE 1 GM/10 ML UDC PO SCH ×2 (17:56→20:50)
--- NOTE | 2022-05-09 19:38 | Billing Data ---
Date of Service May 09, 2022 Coding Level of Care Code 43458 SUB INP/OBS CARE MIN
--- NOTE | 2022-05-09 19:38 | Billing Data ---
Date of Service May 09, 2022 Coding Level of Care Code 54397 SUB INP/OBS CARE MIN
[2022-05-09] MEDS: FAMOTIDINE 20 MG TAB PO SCH (20:50)
[2022-05-09] MEDS: BACLOFEN 20 MG TAB PO PRN (20:50)
[2022-05-09] MEDS: TAMSULOSIN HCL 0.4 MG CAP PO SCH (20:50)
[2022-05-09] MEDS: PANTOprazole 40 MG TAB PO SCH (21:00)
[2022-05-10] MEDS: oxyCODONE HCL 15 MG TABCR (OxyCONTIN) PO SCH ×2 (05:32→19:38)
[2022-05-10 06:52] LABS: Basophils # (auto) 0.02 K/uL (0-0.2); Basophils % (auto) 0.4 %; Eosinophils # (auto) 0.04 K/uL (0-0.50); Eosinophils % (auto) 0.9 %; Hematocrit (blood only) 27.7 % (42.0-52.0); Hemoglobin 9.7 g/dl (14.0-18.0); Immature Granulocytes # (auto) 0.08 K/uL (0.01-0.20); Immature Granulocytes % (auto) 1.7 %; Lymphocytes # (auto) 0.63 K/uL (1.2-3.4); Lymphocytes % (auto) 13.6 %; Mean Corpuscular Volume 82.9 fL (80.0-100.0); Mean Platelet Volume 9.3 fL (9.4-12.4); Monocytes # (auto) 0.42 K/uL (0.11-0.59); Monocytes % (auto) 9.1 %; Neutrophils # (auto) 3.45 K/uL (1.40-6.50); Neutrophils % (auto) 74.3 %; Platelet Count 169 K/uL (130-400); RDW Coefficient of Variation 12.3 % (11.5-14.5); RDW Standard Deviation 36.2 fL (36.4-46.3); Red Blood Count 3.34 M/uL (4.70-6.10); White Blood Count 4.64 K/ul (4.8-10.8)
[2022-05-10] MEDS: PANTOprazole 40 MG TAB PO SCH ×2 (07:12→20:11)
[2022-05-10] MEDS: FAMOTIDINE 20 MG TAB PO SCH ×2 (07:12→20:10)
[2022-05-10] MEDS: SODIUM CHLORIDE 1 GM TABLET PO SCH ×2 (07:13→20:11)
[2022-05-10] MEDS: SUCRALFATE 1 GM/10 ML UDC PO SCH ×4 (07:13→20:10)
[2022-05-10] MEDS: BACLOFEN 20 MG TAB PO PRN (07:13)
[2022-05-10] MEDS: GABAPENTIN 300 MG CAP PO SCH ×4 (07:13→20:10)
[2022-05-10] MEDS: METOPROLOL SUCC 25MG EXT REL TAB PO SCH (07:14)
[2022-05-10] MEDS: amLODIPine BESYLATE 5 MG TAB PO SCH (07:14)
[2022-05-10] MEDS: ASPIRIN 81 MG ECTAB PO SCH (07:14)
[2022-05-10] MEDS: ENOXAPARIN INJ 40 MG/0.4 ML SYR SQ SCH (07:15)
[2022-05-10] MEDS: ATORVASTATIN 40 MG TAB PO SCH (07:15)
[2022-05-10] MEDS: INSULIN ASPART PER UNIT SC SCH ×4 (07:15→20:59)
[2022-05-10 07:22] LABS: Calcium 8.8 mg/dl (8.5-10.1); Creatinine Clr Calc Pharmacy 70.1 ml/min; Est GFR (African American) 86.2 ml/min; Est GFR (Non-African American) 74.3 ml/min; Phosphorus 2.9 mg/dl (2.5-4.9); Potassium 3.8 mmol/L (3.5-5.1)
[2022-05-10] MEDS: LANTUS PER UNIT CHARGE SQ SCH ×2 (08:46→21:04)
--- NOTE | 2022-05-10 10:37 | Hospitalist Progress Note ---
Date of Service May 10, 2022 Assessment & Plan (1) Hyponatremia: Plan: - Sodium on pxusujjyj=779, down to 121 today. Urine osm= 650, Rubina= 123 - Was given 1L NS yesterday with decrease in sodium - Family does note that he has been hyponatremic in past - Etiology likely SIADH; plan for 1200mL fluid restriction and salt tabs 1g BID - 05/10: Sodium 127 with fluid restriction; continue 1200mL fluid restriction with salt tabs 1g BID (2) Tachycardia: Plan: Suspect the tachycardia likely secondary to deconditioning. Stable normochromic/normocytic anemia. CTA with no evidence of PE. Continue to monitor on telemetry; has been in sinus rhythm Check magnesium and phosphorus and replete as needed -05/10: Mag 2.0, phosphorus 2.9 (3) Peptic ulcer: Plan: - CT abdomen pelvis with duodenitis/peptic ulcer disease of the proximal duodenum - Will start on Protonix, Famotidine, Carafate - Defer GI consult now, if pain/appetite does not improve will consider consult - 05/10: appetite has improved, epigastric pain decreased, defer GI consult to outpatient (4) Normocytic normochromic anemia: Plan: - 12.7 on admission, down to 10 today. Appears baseline around 10 - 05/10: HGB 9.7 - Continue to trend (5) Chronic pain syndrome: Plan: Patient with chronic neck and back pain. At home he is on oxymorphone 30 mg p.o. twice daily which he takes at 12 midnight and 12 noon. He takes Oxy Contin 5 mg p.o. twice daily as well. Oxymorphone not on formulary, will treat with oxycodone 30 mg p.o. twice daily OxyContin 5 mg p.o. every 6 hours as needed. If patient is requiring frequent OxyContin dosing will increase oxycodone. Tylenol as needed Rescue Narcan as needed (6) CAD (coronary artery disease), [place] coronary artery: Plan: Patient with history of coronary artery disease status post drug-eluting stent to RCA in October 2020. He denies chest pain. Troponin x2 unremarkable. EKG with no acute ischemic changes Continue aspirin Continue atorvastatin Continue metoprolol Continue to monitor (7) Obstructive sleep apnea: Plan: Chronic. 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 Stable. Continue Flomax 0.4 mg p.o. nightly Monitor urine output (9) DM2 (diabetes mellitus, type 2): Plan: Last hemoglobin A1c on 03/08/2022 = 7.3. Patient is on metformin 500 mg p.o. twice daily Lantus 7 units twice daily with insulin sliding scale Goal blood sugar [id number] Carb consistent diet as tolerated (10) Hypertension: Plan: Blood pressure mildly elevated Continue amlodipine 10 mg p.o. daily Continue metoprolol 25 mg p.o. daily Pain management as above Admission and Anticipated Discharge Date Admission Date: May 09, 2022 Supervising Physician Co-Signing Physician Notes I personally examined the patient and verified all carrion points of history and exam, discussed case, and agree with decision making with Kade Joshi MS4 and Dr Scott. Generally feeling better. Ate fairly well for breakfast and lunch. Answered all questions the best my ability and to his/family satisfaction. Vitals noted, in general he is awake and alert pleasant but fatigued no distress. HEENT normocephalic atraumatic mucous membranes moist. Breathing unlabored no accessory muscle use good effort. Skin shows no rashes no pallor or icterus. Neuro without focal deficits. Failure to thriveappears to be a mixed picture of deconditioning, malnutri tionlikely due to peptic ulcer disease, and deconditioning/PUD/malnutrition all on the heels of what seems to have been a fairly significant COVID infection earlier in the month. PT/OT eval and treat ongoing, treat PUD with twice daily Protonix, twice daily Pepcid, 4 times daily Carafateand with overall improvement, looking stable today anticipate outpatient EGD rather than needing 1 as an inpatient. Hyponatremia likely a degree of either baseline SIADH, or baseline polydipsiaexacerbated by low solute state and acute illness. Given that currently it is behaving much like SIADH, fluid restrict, salt replace, and continue to followis showing improvement DVT prophylaxisLovenox Subjective Feeling better today and states that he slept well and had a good breakfast. Doing okay with the fluid restriction and seen drinking one cup of ice water. Mentions that at home after COVID-19, he wasn't eating because of low appetite and not due to any abdominal pain before/during/after meals. He did not have any dysphagia, hematemesis, nausea, vomiting diarrhea. Today, notes no subj. fevers, chills, sob, chest pain, palpitations, abd pain. Physical Exam Constitutional: Gen- WN, WD, sitting comfortably in no acute distress HEENT- NC/AT, PERRL, oral and pharyngeal mucosa moist Pulm- CTA bilaterally in all 6 lung linares CV- normal S1 and S2, no m/r/g. no JVD, no LE edema Abd- hypo-normo active bowel sounds. Colostomy bag seen with fecal material. slightly distended abd, non-tender to palpation in all 4 quadrants. Mild pain with palpation to the epigastric area. Neuro- CN II-XII intact, Motor: 5/5 bilaterally UE, 5/5 bilaterally LE. Sensation grossly intact b/l UE/LE. Results & Data Results & Data ([facility]) Vital Signs (Past 12 Hours) Vital Signs Temp Pulse Pulse Resp BP BP Pulse Ox 05/10/22 07:34 36.8 C 101 H 20 125/80 96 05/10/22 07:07 105 H 05/09/22 22:49 37.1 C 79 18 120/78 94 O2 Del Method 05/10/22 07:34 Room Air 05/10/22 07:07 05/09/22 22:49 Room Air (6) CAD (coronary artery disease), [place] coronary artery Associated angina: without angina [place] vs. transplanted heart: [place] heart Qualified Code(s): I25.10 - Atherosclerotic heart disease of [place] coronary artery without angina pectoris (9) DM2 (diabetes mellitus, type 2) Diabetes mellitus complication detail: with cataract Diabetes mellitus complication status: with ophthalmic complications Diabetes mellitus shelter insulin use: without long chain beamer use Qualified Code(s): E11.36 - Type 2 diabetes mellitus with diabetic cataract (10) Hypertension Hypertension type: primary hypertension Qualified Code(s): I10 - Essential (primary) hypertension
[2022-05-10 12:45] LABS: BUN Creatinine Ratio 17.2 (10-20); Calcium 8.2 mg/dl (8.5-10.1); Creatinine Clr Calc Pharmacy 70.8 ml/min; Est GFR (African American) 87.2 ml/min; Est GFR (Non-African American) 75.2 ml/min
[2022-05-10] MEDS ORDERED: Nursing to Pharmacy Communication SCH (17:00)
--- NOTE | 2022-05-10 19:13 | Billing Data ---
Date of Service May 10, 2022 Coding Level of Care Code 09181 SUB INP/OBS CARE MIN
[2022-05-10] MEDS: TAMSULOSIN HCL 0.4 MG CAP PO SCH (20:11)
[2022-05-11 06:38] LABS: Basophils # (auto) 0.01 K/uL (0-0.2); Basophils % (auto) 0.3 %; Eosinophils # (auto) 0.04 K/uL (0-0.50); Eosinophils % (auto) 1.2 %; Hemoglobin 9.2 g/dl (14.0-18.0); Immature Granulocytes # (auto) 0.11 K/uL (0.01-0.20); Immature Granulocytes % (auto) 3.3 %; Lymphocytes # (auto) 0.62 K/uL (1.2-3.4); Lymphocytes % (auto) 18.7 %; Mean Corpuscular Hemoglobin 29.2 pg (25.0-34.0); Mean Corpuscular Hgb Conc 35.4 g/dL (32.0-36.0); Mean Corpuscular Volume 82.5 fL (80.0-100.0); Mean Platelet Volume 9.3 fL (9.4-12.4); Monocytes # (auto) 0.47 K/uL (0.11-0.59); Monocytes % (auto) 14.2 %; Neutrophils # (auto) 2.06 K/uL (1.40-6.50); Neutrophils % (auto) 62.3 %; Platelet Count 166 K/uL (130-400); RDW Coefficient of Variation 12.7 % (11.5-14.5); RDW Standard Deviation 37.4 fL (36.4-46.3); Red Blood Count 3.15 M/uL (4.70-6.10); White Blood Count 3.31 K/ul (4.8-10.8)
[2022-05-11] MEDS: FAMOTIDINE 20 MG TAB PO SCH (07:16)
--- NOTE | 2022-05-11 07:16 | Discharge Summary ---
Date of Service May 11, 2022 Admission HPI Per Admitting Provider Jere Borrego is a pleasant 72-year-old male with history of diabetes, hypertension, CAD status JOO to RCA in October 2020, rectal cancer status post colostomy and HARJEET presenting with persistent shortness of breath, body aches, flank pain also with complaint of dizziness and near syncope with positional changes. Patient was recently admitted to [facility] from 04/18 -04/19/2022 with confusion secondary to COVID-19 pneumonia. He was treated with supplemental oxygen, remdesivir and dexamethasone. He was discharged home to complete 5-day course of dexamethasone. Since then, he reports he has not been feeling well. He has persistent shortness of breath and feels as though he cannot take a deep breath. He also reports dyspnea with minimal exertion and easy fatigability. He becomes dizzy with positional changes, feeling that he may pass out. Also with generalized body aches. He reports some bilateral flank pain today as well. He has had poor appetite and has not been eating or drinking well for the last several days. He denies fever, chills, abdominal pain, nausea, vomiting, diarrhea or constipation. Patient discussed the symptoms with his primary care physician and was given a prescription for amoxicillin. In the ER patient is afebrile, sinus tachycardia with rates ranging [id number]. ER course: Normal saline 500 mL Principal Diagnosis Hyponatremia Discharge Exam Constitutional: well-appearing, no acute distress HEENT: NCAT, no conjunctival injection CV: regular rhythm, no murmur appreciated, extremities well-perfused, no LE edema Resp: CTABL, no wheezes/rales/rhonchi appreciated, no increased work of breathing GI: epigastric tenderness, BS normoactive MSK: no gross deformities appreciated Skin: warm, dry, no rash appreciated Neuro: alert, oriented, no focal neurologic deficit appreciated Discharge Data Allergies Allergy/AdvReac Type Severity Reaction Status Date / Time rosuvastatin AdvReac Severe Myalgia Verified 05/06/22 22:38 Consultations 05/07/22 01:02 ED Decision to Admit Stat Ordered Studies 05/06/22 23:09 CT angio chest PE protocol Urgent 05/08/22 17:55 CT Abd and Pelvis [CT abd pelvis wo con] Routine Laboratory Results WBC 3.31 K/ul (4.8-10.8) L 05/11/22 05:46 RBC 3.15 M/uL (4.70-6.10) L 05/11/22 05:46 Hgb 9.2 g/dl (14.0-18.0) L 05/11/22 05:46 Hct 26.0 % (42.0-52.0) L 05/11/22 05:46 MCV 82.5 fL (80.0-100.0) 05/11/22 05:46 MCH 29.2 pg (25.0-34.0) 05/11/22 05:46 MCHC 35.4 g/dL (32.0-36.0) 05/11/22 05:46 RDW Std Deviation 37.4 fL (36.4-46.3) 05/11/22 05:46 RDW Coeff of Arturo 12.7 % (11.5-14.5) 05/11/22 05:46 Plt Count 166 K/uL (130-400) 05/11/22 05:46 MPV 9.3 fL (9.4-12.4) L 05/11/22 05:46 Immature Gran % (Auto) 3.3 % 05/11/22 05:46 Neut % (Auto) 62.3 % 05/11/22 05:46 Lymph % (Auto) 18.7 % 05/11/22 05:46 [place] % (Auto) 14.2 % 05/11/22 05:46 Eos % (Auto) 1.2 % 05/11/22 05:46 Baso % (Auto) 0.3 % 05/11/22 05:46 Neut # (Auto) 2.06 K/uL (1.40-6.50) 05/11/22 05:46 Lymph # (Auto) 0.62 K/uL (1.2-3.4) L 05/11/22 05:46 [place] # (Auto) 0.47 K/uL (0.11-0.59) 05/11/22 05:46 Eos # (Auto) 0.04 K/uL (0-0.50) 05/11/22 05:46 Baso # (Auto) 0.01 K/uL (0-0.2) 05/11/22 05:46 Immature Gran # (Auto) 0.11 K/uL (0.01-0.20) 05/11/22 05:46 PT 10.7 Seconds (9.0-12.0) 05/06/22 21:03 INR 1.0 (0.9-1.1) 05/06/22 21:03 APTT 28.5 Seconds (21.0-31.0) 05/06/22 21:03 PTT Ratio 1.0 05/06/22 21:03 Sodium 128 mmol/L (136-145) L 05/11/22 05:46 Potassium 3.5 mmol/L (3.5-5.1) 05/11/22 05:46 Chloride 95 mmol/L (98-107) L 05/11/22 05:46 Carbon Dioxide 29 mmol/L (21-32) 05/11/22 05:46 Anion Gap 4 (3-11) 05/11/22 05:46 BUN 16 mg/dl (6-23) 05/11/22 05:46 Creatinine 1.01 mg/dl (0.6-1.4) 05/11/22 05:46 Est Cr Clr Drug Dosing 69.4 ml/min 05/11/22 05:46 Est GFR ( Amer) 85.1 ml/min 05/11/22 05:46 Est GFR (Non-Af Amer) 73.4 ml/min 05/11/22 05:46 BUN/Creatinine Ratio 15.8 (10-20) 05/11/22 05:46 Glucose 96 mg/dl (70-99(Fasting)) 05/11/22 05:46 POC Glucose 205 mg/dl (70-99) H 05/11/22 12:05 Calcium 8.2 mg/dl (8.5-10.1) L 05/11/22 05:46 Phosphorus 2.9 mg/dl (2.5-4.9) 05/10/22 05:55 Magnesium 2.0 mg/dl (1.7-2.4) 05/10/22 05:55 Total Bilirubin 0.5 mg/dl (0.2-1.0) 05/11/22 05:46 AST 22 U/L (13-39) 05/11/22 05:46 ALT 26 U/L (7-52) 05/11/22 05:46 Alkaline Phosphatase 57 U/L (34-104) 05/11/22 05:46 Total Creatine Kinase 22 U/L (30-223) L 05/07/22 08:53 Troponin I High Sens 6.4 pg/ml (0-20) 05/07/22 13:11 Total Protein 6.3 gm/dl (6.0-8.3) 05/11/22 05:46 Albumin 3.3 gm/dl (3.4-5.0) L 05/11/22 05:46 Globulin 3.0 gm/dl (2.5-4.0) 05/11/22 05:46 Albumin/Globulin Ratio 1.1 (0.9-2) 05/11/22 05:46 TSH 1.268 uIu/ml (0.300-4.500) 05/09/22 06:15 Urine Color Yellow 05/07/22 05:57 Urine Appearance Clear (Clear) 05/07/22 05:57 Urine pH 7.0 (4.5-7.5) 05/07/22 05:57 Ur Specific [place] 1.043 (1.000-1.030) H 05/07/22 05:57 Urine Protein Negative (Negative) 05/07/22 05:57 Urine Glucose (UA) Trace (Negative) H 05/07/22 05:57 Urine Ketones Negative (Negative) 05/07/22 05:57 Urine Blood Negative (Negative) 05/07/22 05:57 Urine Nitrite Negative (Negative) 05/07/22 05:57 Urine Bilirubin Negative (Negative) 05/07/22 05:57 Urine Urobilinogen Negative (Negative) 05/07/22 05:57 Ur Leukocyte Esterase Negative (Negative) 05/07/22 05:57 Urine Osmolality 650 mOsm/kg (500-800) 05/08/22 18:00 Ur Random Creatinine 95.6 mg/dl 05/08/22 18:00 Ur Random Creatinine 96.2 mg/dl 05/08/22 18:00 U Random Total Protein 13.0 mg/dl (0-11.9) H 05/08/22 18:00 Ur Random Sodium 123 mmol/L 05/08/22 18:00 Ur Random Potassium 59.2 mmol/L 05/08/22 18:00 Protein/Creatinin Ratio 0.1 (0-0.2) 05/08/22 18:00 Stool Occult Bld Scrn Positive (Negative) A 05/10/22 05:30 SARS-CoV-2, RNA, NAAT NEGATIVE (NEGATIVE) 05/07/22 00:30 Impressions Chest X-Ray 05/06/22 20:55 XR chest 1V portable HISTORY: Chest pain, nonspecific COMPARISON: Chest 04/18/2022. FINDINGS: The lungs are clear. Cardiac silhouette is normal in size. No pleural effusions. No pneumothorax. Spinal fusion hardware is again noted. IMPRESSION: No acute process. ACT 112: Negative or not required by law. Electronically signed by: Toan Springer M.D. 05/07/2022 7:43 AM Chest CTA 05/06/22 23:09 CT ANGIOGRAPHY OF THE CHEST, PULMONARY EMBOLUS PROTOCOL CLINICAL HISTORY: Tachycardia, light headed, CP, recent, Covid. COMPARISON STUDY: Chest CT April 18, 2022 and chest radiograph performed earlier today. TECHNIQUE: Following IV administration of 115 mL of Optiray, helical axial images of the chest were obtained utilizing the pulmonary embolus protocol. Maximal intensity projections and sagittal and coronal reformats were viewed on an independent 3D workstation. IV contrast was administered without complication. Automated exposure control was utilized for the study. A dose lowering technique was utilized adhering to the principles of ALARA. CT DOSE: 483.14 mGy.cm FINDINGS: No pulmonary emboli are present. There is mild dilatation of the central pulmonary arteries. Mild dilatation of the ascending aorta, measuring 4.1 cm, is noted. There is no thoracic aortic dissection. There is mild cardiomegaly. No pericardial effusion is present. There is no thoracic lymphadenopathy. No pneumothorax or effusion. Scattered mild groundglass opacities have developed since chest CT April 18, 2022. Bilateral lower lobe subpleural nodules are unchanged since CT of October 10, 2012. These are benign given stability. Mild emphysema is present. There are no acute fractures within the bony thorax. Central airways are patent. Hepatic steatosis is incidentally noted. Postoperative findings within the spine are present. IMPRESSION: 1. No pulmonary emboli identified. 2. Interval development of mild groundglass opacities within lungs which favor an infectious process such as viral pneumonia. 3. Emphysema. ACT 112: Negative or not required by law. Electronically signed by: Salvador Sim M.D. 05/07/2022 9:16 AM Abdomen/Pelvis CT 05/08/22 17:55 CT OF THE ABDOMEN AND PELVIS WITHOUT CONTRAST CLINICAL HISTORY: nausea, poor appetite, weight loss COMPARISON STUDY: CT of the abdomen and pelvis April 26, 2021. TECHNIQUE: Axial images of the abdomen and pelvis were obtained without IV contrast. Images were reviewed in the axial, sagittal, and coronal planes. Automated exposure control was utilized for the study. A dose lowering technique was utilized adhering to the principles of ALARA. FINDINGS: Nodules within the lower lungs are unchanged from earlier exams. These are benign given stability. No pneumatosis, free air or portal venous gas is present. There is hepatic steatosis. No biliary or pancreatic ductal dilatation is present. Layering hyperdensity within the gallbladder is noted. There is no evidence for acute cholecystitis. Spleen, adrenal glands and kidneys are unremarkable. There is no hydronephrosis. Note is made of wall thickening of the first and second portion of the duodenum with adjacent stranding. There is a focal outpouching of the superior wall of the duodenal bulb on axial image 137 of 446. This is suggestive of a duodenal ulcer. There is no extraluminal gas. Rectal resection is noted with descending colostomy. There is no evidence for a bowel obstruction. Prominent left inguinal lymph nodes remain unchanged from earlier exams. Postoperative findings within the spine are noted. No acute fractures are identified. IMPRESSION: 1. Findings with duodenitis/peptic ulcer disease of the proximal duodenum with an ulcer of the duodenal bulb, as described above. No extraluminal gas. 2. No bowel obstruction. Postoperative findings, as above. 3. Hepatic steatosis. 4. Layering hyperdense which are within the gallbladder. No evidence for acute cholecystitis. ACT 112: Negative or not required by law. Electronically signed by: Salvador Sim M.D. 05/08/2022 6:29 PM Hospital Course (1) Hyponatremia: - Sodium trending up. 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 Stable normochromic/normocytic anemia. CTA with no evidence of PE. Was monitored on telemetry (3) Peptic ulcer: - CT abdomen pelvis with duodenitis/peptic ulcer disease of the proximal duodenum - Will start on Protonix, Famotidine, Carafate - Plan for OP GI referral for EGD (4) Normocytic normochromic anemia: - 12.7 on admission, down to 10 today. Appears baseline around 10 - Hemoglobin= 9.2 on discharge. - No signs of acute bleeding. Will need f/u CBC (5) Chronic pain syndrome: Patient with chronic neck and back pain. At home he is on oxymorphone 30 mg p.o. twice daily which he takes at 12 midnight and 12 noon. He takes Oxy Contin 5 mg p.o. twice daily as well. Plan to discharge on home pain regimen (6) CAD (coronary artery disease), [place] coronary artery: Patient with history of coronary artery disease status post drug-eluting stent to RCA in October 2020. He denies chest pain. Troponin x2 unremarkable. EKG with no acute ischemic changes Continue aspirin Continue atorvastatin Continue metoprolol (7) Obstructive sleep apnea: Chronic. 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 Stable. Continue Flomax 0.4 mg p.o. nightly (9) DM2 (diabetes mellitus, type 2): Last hemoglobin A1c on 03/08/2022 = 7.3. Patient is on metformin 500 mg p.o. twice daily Plan to resume home regimen upon dc (10) Hypertension: Blood pressure mildly elevated Continue amlodipine 10 mg p.o. daily Continue metoprolol 25 mg p.o. daily Total Time Total Time Spent Total Time Spent (In Minutes): <30 Discharge Plan Discharge Items Patient Disposition: Home - Self-Care Reason For Visit: SHORTNESS OF BREATH, FLANK PAIN Discharge Diagnosis: Hyponatremia Activity: Per Instructions section Non-emergency contact: Primary Care Provider Call non-emergency contact if: you have any medication questions and your symptoms worsen Follow-up/Referrals: Loy Browning III, CRNP [Primary Care Provider] - 05/16/22 4:00 pm Luciano Webb MD [Physician] - Diet: Regular Fluids: 1200ml (5 cups) Ambulatory Orders: Basic Metabolic Panel (Routine) Timeframe: 2 Days Location: Determined by Patient Ordered By: Paris Scott Basic Metabolic Panel (Routine) Timeframe: 2 Days Location: Determined by Patient Ordered By: Paris Azul Attending Provider Instructions: Low Sodium On admission your sodium was low. We think this is likely due to your recent COVID illness. When the body is stressed it can make too much ADH (antidiuretic hormone). ADH functions to help the kidney regulate how much water to keep and get ride of. SIADH (syndrome of inappropriate antidiuretic hormone secretion) can be caused by a variety of stresses on the body. In your case we think it was caused by your recent illness. We would like you to continue to restrict your fluid intake to about 2 of the [employer] cups per day. We also sent a prescription for salt tabs to your pharmacy. You can continue to take one a day until your follow up appointment with your PCP on Monday. We would like you to get lab work done on Monday, so that we can check your sodium again. We will give you a lab slip for this and will have the results sent to your primary care provider. Peptic Ulcer We think that your decreased appetite could be related to the peptic ulcer that we saw on your CT scan. We started you on 3 new medications for this. We would like you to take Pantoprazole 40mg twice a day, Famotidine 20mg twice a day, and sucralfate prior to meals. Ultimately over the next few weeks you should be able to cut back on the sucralfate followed by the famotidine. You will need another endoscopy within the next month or 2. We put in a referral for you follow up with GI. If you were to see any bright red blood in your stool or dark stools you should reach out to your PCP. Pending Studies at Discharge: No Stand-Alone Forms: [facility] globa.ly Medications and DC Order Prescriptions: New sucralfate 100 mg/mL Suspension 1 g PO QID Qty: 400 0RF famotidine 20 mg Tablet 20 mg PO BID 30 Days Qty: 60 0RF pantoprazole 40 mg Tablet,Delayed Release (Dr/Ec) 40 mg PO BID 30 Days Qty: 60 0RF sodium chloride 1,000 mg Tablet,Soluble 1,000 mg PO DAILY Qty: 10 0RF Continued acetaminophen 500 mg capsule 500 mg PO Q8H PRN (Reason: Pain) atorvastatin 40 mg tablet 40 mg PO QAM Qty: 90 3RF metoprolol succinate 25 mg tablet extended release 24 hr 25 mg PO DAILY Qty: 90 1RF amlodipine 10 mg tablet 10 mg PO QAM Qty: 90 1RF tamsulosin 0.4 mg capsule 0.4 mg PO HS Qty: 90 3RF oxycodone 5 mg tablet 5 mg PO BID 30 Days Qty: 60 0RF oxymorphone 30 mg tablet extended release 12 hr 30 mg PO BID Qty: 60 0RF Rx Instructions: pt states he takes at 06:00am + 06:00pm gabapentin 600 mg tablet 300 mg PO QID Qty: 60 3RF naloxone 4 mg/actuation spray,non-aerosol 1 spray intranasal Q3M PRN (Reason: OVER SEDATION) Rx Instructions: spray 1 dose into ONE nostril; alternate nostrils w each dose until help arrives metformin 500 mg tablet 500 mg PO BID Rx Instructions: TAKE 1 TABLET TWICE A DAY baclofen 20 mg tablet 20 mg PO BID PRN (Reason: MUSCLE SPASMS) Rx Instructions: TAKE 1 TABLET BY MOUTH TWICE A DAY NEEDED FOR MUSCLE SPASM aspirin 81 mg Tablet,Delayed Release (Dr/Ec) 81 mg PO QAM Qty: 30 0RF Rx Instructions: OTC multivitamin Tablet 1 tab PO DAILY loratadine [Claritin] 10 mg Tablet 10 mg PO QAM PRN (Reason: Congestion) Discharge Orders: Discharge Order (Routine); Ordered 05/11/22 Ordered By: Paris Scott Admission Data Admit Date/Time: 05/09/22 07:29 Attending Provider: Jacobo Cobian Admit Provider: Paris Scott Primary Care Provider: Loy Browning III Other Providers: Bernarda Varela Other Interventions: Discharge Summary Assessment (RN) Last Done: 05/11/22 12:38 Supervising Physician Co-Signing Physician Notes I personally examined the patient and verified all carrion points of history and exam, discussed case, and agree with decision making with Dr Scott. Feels better overall. Eating better. Feels good to go home. Vitals noted, in general he is awake and alert pleasant but fatigued no distress. HEENT normocephalic atraumatic mucous membranes moist. Breathing u nlabored no accessory muscle use good effort. Skin shows no rashes no pallor or icterus. Neuro without focal deficits. Failure to thriveappears to be a mixed picture of deconditioning, malnutrit ionlikely due to peptic ulcer disease, and deconditioning/PUD/malnutrition all on the heels of what seems to have been a fairly significant COVID infection earlier in the month. Deconditioning stable for outpatient PT, continue to treat PUD with twice daily Protonix, twice daily Pepcid, 4 times daily Carafate anticipate outpatient EGD, and slowly wean stomach medicines as an outpatient. Hyponatremia likely a degree of either baseline SIADH, or baseline polydipsiaexacerbated by low solute state and acute illness. Acutely has improved with fluid restriction and salt tabsclose outpatient follow-up and slowly loosen treatment for this as his sodium levels allow DVT prophylaxisLovenox Resident Activity Tracking Resident Involvement: Resident Care Provided Care Provided: Adult Hospital Medicine
[2022-05-11] MEDS: METOPROLOL SUCC 25MG EXT REL TAB PO SCH (07:17)
[2022-05-11] MEDS: BACLOFEN 20 MG TAB PO PRN (07:17)
[2022-05-11] MEDS: GABAPENTIN 300 MG CAP PO SCH ×2 (07:17→11:08)
[2022-05-11] MEDS: ATORVASTATIN 40 MG TAB PO SCH (07:17)
[2022-05-11] MEDS: amLODIPine BESYLATE 5 MG TAB PO SCH (07:17)
[2022-05-11] MEDS: SODIUM CHLORIDE 1 GM TABLET PO SCH (07:17)
[2022-05-11] MEDS: ENOXAPARIN INJ 40 MG/0.4 ML SYR SQ SCH (07:18)
[2022-05-11] MEDS: SUCRALFATE 1 GM/10 ML UDC PO SCH ×2 (07:18→11:08)
[2022-05-11] MEDS: PANTOprazole 40 MG TAB PO SCH (07:18)
[2022-05-11] MEDS: ASPIRIN 81 MG ECTAB PO SCH (07:18)
[2022-05-11 07:22] LABS: Albumin Globulin Ratio 1.1 (0.9-2); Albumin Level 3.3 gm/dl (3.4-5.0); BUN Creatinine Ratio 15.8 (10-20); Bilirubin,Total 0.5 mg/dl (0.2-1.0); Calcium 8.2 mg/dl (8.5-10.1); Creatinine Clr Calc Pharmacy 69.4 ml/min; Est GFR (African American) 85.1 ml/min; Est GFR (Non-African American) 73.4 ml/min; Potassium 3.5 mmol/L (3.5-5.1); Total Protein 6.3 gm/dl (6.0-8.3)
[2022-05-11] MEDS: oxyCODONE HCL 15 MG TABCR (OxyCONTIN) PO SCH (07:28)
[2022-05-11] MEDS: INSULIN ASPART PER UNIT SC SCH ×2 (08:24→11:57)
[2022-05-11] MEDS: LANTUS PER UNIT CHARGE SQ SCH (08:27)
--- NOTE | 2022-05-11 19:39 | Billing Data ---
Date of Service May 11, 2022 Coding Level of Care Code 40893 IN/OBS DISCH 30 MIN/LESS
--- NOTE | 2022-05-13 06:07 | Coding Query ---
MALNUTRITION To promote full compliance with coding requirements relating to patient care, physician participation is requested in all cases of director of digital marketing uncertainty. Please assist us with the question(s) below: Please place an X within the parenthesis (x). If other, please document: "Malnutrition" is documented in this record.* Please refor to progress notes under Supervising Physician : "Failure to thrive , mixed picture of deconditioning and malnutrition". If possible, please check the box that provides a more specific diagnosis: x( ) Mild malnutrition -- mild protein, probably moderate calorie ( ) Moderate malnutrition ( ) Severe malnutrition ( ) Protein malnutrition (kwashiorkor) ( ) Severe protein calorie malnutrition ( ) Protein calorie malnutrition, unspecified ( ) Other (please specify): Was this diagnosis present on admission? Please place an X within the parenthesis (x). ( ) Present on admission ( ) Not present on admission ( ) Unable to be clinically determined Thank you FRANCHESKA Kline [facility]
== END 2022-05-11 14:32 | disposition home or self-care (01) | DRG 644 ==
LOC: 2W 20:48 → ED 20:48 → SUATTDRO 05-07 01:27 → 2W 05-07 02:24

== ENCOUNTER 2022-05-19 18:18 | Observation (INO) ==
[2022-05-19 19:33] LABS: Basophils # (auto) 0.02 K/uL (0-0.2); Basophils % (auto) 0.2 %; Eosinophils # (auto) 0.04 K/uL (0-0.50); Eosinophils % (auto) 0.4 %; Hematocrit (blood only) 34.8 % (42.0-52.0); Hemoglobin 11.4 g/dl (14.0-18.0); Immature Granulocytes # (auto) 0.15 K/uL (0.01-0.20); Immature Granulocytes % (auto) 1.7 %; Lymphocytes # (auto) 1.25 K/uL (1.2-3.4); Mean Corpuscular Hemoglobin 28.4 pg (25.0-34.0); Mean Corpuscular Hgb Conc 32.8 g/dL (32.0-36.0); Mean Corpuscular Volume 86.8 fL (80.0-100.0); Mean Platelet Volume 9.3 fL (9.4-12.4); Monocytes # (auto) 0.97 K/uL (0.11-0.59); Monocytes % (auto) 10.9 %; Neutrophils # (auto) 6.47 K/uL (1.40-6.50); Neutrophils % (auto) 72.8 %; Platelet Count 415 K/uL (130-400); RDW Coefficient of Variation 13.1 % (11.5-14.5); RDW Standard Deviation 41.2 fL (36.4-46.3); Red Blood Count 4.01 M/uL (4.70-6.10)
[2022-05-19] MEDS ORDERED: SODIUM CHLORIDE 0.9% 1000ML 1,000 ML IV ONE (19:33)
--- NOTE | 2022-05-19 19:43 | Emergency Department Note ---
Impression & Plan Hypotension, Tachycardia, Anemia, SOB (shortness of breath), Acute dehydration ED Provider Note NAME: RED VILLARREAL AGE: 72 SEX: M : 1950 ARRIVES VIA: Walk-In INFORMANT: [Patient][family] ED PROVIDER(S): [Mateo Galvan MD] CHIEF COMPLAINT: Dizzy, short of breath HISTORY OF PRESENT ILLNESS: The patient is a 72-year-old male who presents with about 24 hours of some shortness of breath and dizziness. He feels dizzy when he stands, he feels short of breath with exertion. No chest pain. No fever, chills, cough or congestion. Patient states that he is trying to control how much he drinks as he has a history of hyponatremia. He was in the hospital in April for COVID, he was discharged from our hospital just over a week ago after having a bleeding ulcer. He has not noticed any blood in his stool, no black stool. As per his family, they believe he is paler than normal. PMHx/PSHx: See Below SOCIAL HISTORY: See Below. PHYSICAL EXAM: GENERAL: Patient is in no acute distress. HEENT: No acute trauma, normocephalic atraumatic, mucous membranes moist, no nasal congestion. NECK: No stridor, no adenopathy, no meningismus, trachea is midline. LUNGS: Clear to auscultation bilaterally, no wheeze, no rhonchi, breath sounds equal. HEART: 2/6 systolic murmur, mildly tachycardic, regular rhythm. ABDOMEN: Soft, nontender, bowel sounds positive, no peritonitis. There is a left-sided colostomy present. EXTREMITIES: No cyanosis or edema, full range of motion of all the joints wit hout pain or difficulty, no signs for acute trauma. NEUROLOGIC: Oriented x 3, no acute motor or sensory deficits, no focal weakness. SKIN: No rash, no jaundice, no diaphoresis. Pale. DIFFERENTIAL DIAGNOSIS: Anemia, electrolyte imbalance, dehydration, PA, cardiac ischemia, pneumonia, CHF, among others. EMERGENCY DEPARTMENT COURSE/PROCEDURES: Prior/Outside records reviewed: Recent discharge summary. ECG per my interpretation: Indication was shortness of breath. The ECG shows what appears to be a sinus tachycardia with a rate of 112. There is some subtle ST elevation in the lateral leads however, this is downsloping. There is an old inferior infarct. No PVCs. The QTc is 447. Compared to an ECG from 06 May 2022, the lateral ST elevation appears new. Continuous Cardiac Monitoring per my interpretation: An order was placed for continuous cardiac monitoring. The monitor shows a rate of 115 with sinus tachycardia. Critical Care Note: I have personally spent 52 minutes of critical care time in the direct management of this patient. This includes bedside care, interpretation of diagnostic studies, and testing, discussion with consultants, patient, and family members, and other required patient management activities. This 52 minutes is in excess of all separately billable procedures. MEDICAL DECISION MAKING: There is no leukocytosis. The patient is anemic however, his hemoglobin value is better than recent testing. Platelet count was slightly elevated. Patient did have a lower sodium at 131 however, this is where he typically runs. Creatinine was elevated at 1.48 consistent with some mild acute kidney injury as well as dehydration. Lactic acid level was not elevated making sepsis less l ikely. No concerning liver enzyme elevation. ECG showed a sinus tachycardia, no obvious ischemia. There were some subtle lateral ST elevations however these elevations were downsloping. Cardiac enzyme testing x1 is not consistent with acute cardiac injury. Of note, the patient has no chest pain. Urinalysis did not show infection. COVID test returned negative. Chest x-ray did not show pneumonia or CHF per my review. Patient had presented hypotensive and tachycardic. He was given IV saline, 1.5 L. His blood pressure is now improved, his heart rate has improved. I think the patient requires a hospital stay. He is symptoms may certainly be from dehydration alone although, further monitoring and work-up is warranted. I spoke with the patient and case management, the on-call hospitalist was consulted. DISPOSITION: The patient's presentation and findings warrant a hospital stay. Past Med/Surg History Medical History Acute upper gastrointestinal bleeding LYUBOV (acute kidney injury) Anxiety disorder BPH with obstruction/lower urinary tract symptoms CAD (coronary artery disease), enterprise coronary artery Cervical fusion syndrome Chest pain Chronic back pain Chronic pain syndrome DM2 (diabetes mellitus, type 2) High anion gap metabolic acidosis Hypertension Hypocalcemia Hypomagnesemia Hyponatremia Hypophosphatemia Hypoxia Metabolic acidosis Obstructive sleep apnea Osteoarthritis Partial small bowel obstruction Peripheral neuropathy Postlaminectomy syndrome of lumbosacral region SBO (small bowel obstruction) ST elevation (STEMI) myocardial infarction Statin myopathy Syncope Thumb pain Transaminitis Surgical History H/O inguinal hernia repair H/O resection of rectum History of rectal surgery Previous back surgery S/P cervical spinal fusion S/P drug eluting coronary stent placement S/P PTCA (percutaneous transluminal coronary angioplasty) S/P tonsillectomy and adenoidectomy Family History Father Cardiovascular disease Cardiac disorder Prostate cancer Mother Dementia Diabetes Other Hypertension No significant family history Denies family history of Ovarian cancer Myocardial infarction Breast cancer Colorectal cancer Social History Smoking Status: Former smoker Tobacco Type: Smokeless Tobacco (Dip or Chew) Age Started Using Tobacco: 17; Age Quit Using Tobacco: 24; packs per day: 1; Cigarettes Per Day: 20; Second Hand Exposure: No; Hx Alcohol Use: No Hx Substance Use: No Preferred Language: Romansh Communication Ability: Effective Visual Impairment: No Limitations Hearing Ability: Normal Leather Fitter Required: No Beliefs That Will Affect Care: None marital status: Current Living Situation: Spouse current occupational status: retired How many Children do You have: 4 Other Information That Helps Us Care for You: No Feels Safe at Home: Yes Safety Concerns: Feels Safe At This Time Childhood Exposure to Second-Hand Smoke: No caffeine: Yes during the past year weight has: remained stable Dental Care, Regularly: No Physical Activity Frequency: Daily Seatbelt Use: always Sunscreen Use: No Assistive Devices: None Allergies Allergies Allergy/AdvReac Type Severity Reaction Status Date / Time rosuvastatin AdvReac Severe Myalgia Verified 05/19/22 21:10 Home Meds Home Medications Medication Instructions Recorded Confirmed acetaminophen 500 mg capsule 500 mg PO Q8H PRN Pain 10/12/20 05/19/22 naloxone 4 mg/actuation nasal spray 1 spray intranasal Q3M PRN OVER 12/19/20 05/19/22 SEDATION loratadine 10 mg tablet (Claritin) 10 mg PO QAM PRN Congestion 04/19/21 05/19/22 multivitamin 1 tab PO DAILY 04/19/21 05/19/22 baclofen 20 mg tablet 20 mg PO BID PRN MUSCLE SPASMS 05/06/22 05/19/22 metformin 500 mg tablet 500 mg PO BIDM 05/06/22 05/19/22 Previous Rx's Medication Instructions Recorded aspirin 81 mg tablet,delayed 81 mg PO QAM #30 tabs 11/05/20 release atorvastatin 40 mg tablet 40 mg PO QAM #90 tabs 11/23/21 metoprolol succinate 25 mg 25 mg PO DAILY #90 tabs 01/17/22 tablet,extended release 24 hr amlodipine 10 mg tablet 10 mg PO QAM #90 tabs 02/16/22 tamsulosin 0.4 mg capsule 0.4 mg PO HS #90 caps 03/02/22 oxycodone 5 mg tablet 5 mg PO BID Pain 30 days #60 tabs 04/21/22 oxymorphone 30 mg tablet,extended 30 mg PO BID #60 tabs 04/21/22 release,12 hr gabapentin 600 mg tablet 300 mg PO QID Unknown #60 tabs 04/26/22 famotidine 20 mg tablet 20 mg PO BID 30 days #60 tabs 05/11/22 pantoprazole 40 mg tablet,delayed 40 mg PO BID 30 days #60 tabs 05/11/22 release sodium chloride 1,000 mg soluble 1,000 mg PO DAILY #10 tabs 05/11/22 tablet sucralfate 1 gram tablet (Carafate) 1 g PO QID 14 days #56 tabs 05/12/22 Results & Data (ED) Vital Signs Vital Signs - 24 hr 05/19/22 18:40 05/19/22 18:55 05/19/22 20:53 Temperature 36.8 C Temperature Source Oral Pulse Rate 123 H 115 H Pulse Rate from SpO2 Sensor Respiratory Rate 22 Blood Pressure 82/56 L Blood Pressure Mean 64 Pulse Oximetry 96 98 Oxygen Delivery Method Room Air Room Air Sepsis Recent Fever Within 48 Hours No Sepsis New/Unexplained Change in Mental Status N/A Sepsis Action Taken by Nursing No Action Required 05/19/22 20:56 05/19/22 18:51 05/19/22 19:00 Temperature Temperature Source Pulse Rate 117 H 113 H Pulse Rate from SpO2 Sensor 111 H 109 H Respiratory Rate 21 12 Blood Pressure 100/68 Blood Pressure Mean 78 Pulse Oximetry 97 95 Oxygen Delivery Method Room Air Sepsis Recent Fever Within 48 Hours Sepsis New/Unexplained Change in Mental Status Sepsis Action Taken by Nursing 05/19/22 19:10 05/19/22 19:20 05/19/22 19:30 Temperature Temperature Source Pulse Rate 114 H 114 H 108 H Pulse Rate from SpO2 Sensor 103 H 104 H 102 H Respiratory Rate 12 25 H 16 Blood Pressure 106/73 Blood Pressure Mean 84 Pulse Oximetry 97 95 95 Oxygen Delivery Method Sepsis Recent Fever Within 48 Hours Sepsis New/Unexplained Change in Mental Status Sepsis Action Taken by Nursing 05/19/22 19:40 05/19/22 19:50 05/19/22 20:00 Temperature Temperature Source Pulse Rate 102 H 100 H 97 H Pulse Rate from SpO2 Sensor 101 H 99 H 99 H Respiratory Rate 12 13 18 Blood Pressure 99/69 L Blood Pressure Mean 79 Pulse Oximetry 94 93 94 Oxygen Delivery Method Sepsis Recent Fever Within 48 Hours Sepsis New/Unexplained Change in Mental Status Sepsis Action Taken by Nursing 05/19/22 20:10 05/19/22 20:20 05/19/22 20:30 Temperature Temperature Source Pulse Rate 88 95 H 95 H Pulse Rate from SpO2 Sensor 82 85 92 H Respiratory Rate 13 14 15 Blood Pressure 117/67 Blood Pressure Mean 83 Pulse Oximetry 94 95 98 Oxygen Delivery Method Sepsis Recent Fever Within 48 Hours Sepsis New/Unexplained Change in Mental Status Sepsis Action Taken by Nursing 05/19/22 20:40 05/19/22 20:50 05/19/22 21:00 Temperature Temperature Source Pulse Rate 93 H 101 H Pulse Rate from SpO2 Sensor 86 92 H Respiratory Rate 10 L 15 Blood Pressure 118/76 Blood Pressure Mean 90 Pulse Oximetry 93 98 Oxygen Delivery Method Sepsis Recent Fever Within 48 Hours Sepsis New/Unexplained Change in Mental Status Sepsis Action Taken by Nursing 05/19/22 21:00 05/19/22 21:30 05/19/22 21:30 Temperature Temperature Source Pulse Rate 96 H 96 H Pulse Rate from SpO2 Sensor 87 96 H Respiratory Rate 23 12 Blood Pressure 148/79 H Blood Pressure Mean 102 Pulse Oximetry 94 93 Oxygen Delivery Method Sepsis Recent Fever Within 48 Hours Sepsis New/Unexplained Change in Mental Status Sepsis Action Taken by Nursing 05/19/22 22:00 05/19/22 22:01 05/19/22 22:01 Temperature Temperature Source Pulse Rate 95 H 102 H Pulse Rate from SpO2 Sensor 111 H 97 H Respiratory Rate 14 11 L Blood Pressure 133/81 Blood Pressure Mean 98 Pulse Oximetry 94 Oxygen Delivery Method Sepsis Recent Fever Within 48 Hours Sepsis New/Unexplained Change in Mental Status Sepsis Action Taken by Nursing 05/19/22 22:30 05/19/22 22:30 Temperature Temperature Source Pulse Rate Pulse Rate from SpO2 Sensor 107 H Respiratory Rate 18 Blood Pressure 113/84 Blood Pressure Mean 93 Pulse Oximetry 94 Oxygen Delivery Method Sepsis Recent Fever Within 48 Hours Sepsis New/Unexplained Change in Mental Status Sepsis Action Taken by [facility] Medications Current Medication List: was personally reviewed by me Laboratory Data Attestation: I reviewed the patient's lab results. 05/19/22 18:55 05/19/22 18:55 Lab Results 05/19/22 05/19/22 05/19/22 Range/Units 18:55 18:55 18:55 WBC 8.90 (4.8-10.8) K/ul RBC 4.01 L (4.70-6.10) M/uL Hgb 11.4 L (14.0-18.0) g/dl Hct 34.8 L (42.0-52.0) % MCV 86.8 (80.0-100.0) fL MCH 28.4 (25.0-34.0) pg MCHC 32.8 (32.0-36.0) g/dL RDW Std Deviation 41.2 (36.4-46.3) fL RDW Coeff of Arturo 13.1 (11.5-14.5) % Plt Count 415 H (130-400) K/uL MPV 9.3 L (9.4-12.4) fL Immature Gran % (Auto) 1.7 % Neut % (Auto) 72.8 % Lymph % (Auto) 14.0 % Troup % (Auto) 10.9 % Eos % (Auto) 0.4 % Baso % (Auto) 0.2 % Neut # (Auto) 6.47 (1.40-6.50) K/uL Lymph # (Auto) 1.25 (1.2-3.4) K/uL Troup # (Auto) 0.97 H (0.11-0.59) K/uL Eos # (Auto) 0.04 (0-0.50) K/uL Baso # (Auto) 0.02 (0-0.2) K/uL Immature Gran # (Auto) 0.15 (0.01-0.20) K/uL Sodium 131 L (136-145) mmol/L Potassium 4.4 (3.5-5.1) mmol/L Chloride 95 L (98-107) mmol/L Carbon Dioxide 25 (21-32) mmol/L Anion Gap 11 (3-11) BUN 18 (6-23) mg/dl Creatinine 1.48 H (0.6-1.4) mg/dl Est Cr Clr Drug Dosing 47.3 ml/min Est GFR ( Amer) 53.6 ml/min Est GFR (Non-Af Amer) 46.3 ml/min BUN/Creatinine Ratio 12.2 (10-20) Glucose 294 H (70-99(Fasting)) mg/dl Calcium 8.6 (8.5-10.1) mg/dl Magnesium 1.8 Cancelled (1.7-2.4) mg/dl Total Bilirubin 0.8 (0.2-1.0) mg/dl AST 12 L (13-39) U/L ALT 17 (7-52) U/L Alkaline Phosphatase 88 (34-104) U/L Troponin I High Sens 10.0 (0-20) pg/ml Total Protein 7.4 (6.0-8.3) gm/dl Albumin 3.9 (3.4-5.0) gm/dl Globulin 3.5 (2.5-4.0) gm/dl Albumin/Globulin Ratio 1.1 (0.9-2) SARS-CoV-2, RNA, NAAT (NEGATIVE) Blood Type Antibody Screen 05/19/22 05/19/22 Range/Units 19:45 20:30 WBC (4.8-10.8) K/ul RBC (4.70-6.10) M/uL Hgb (14.0-18.0) g/dl Hct (42.0-52.0) % MCV (80.0-100.0) fL MCH (25.0-34.0) pg MCHC (32.0-36.0) g/dL RDW Std Deviation (36.4-46.3) fL RDW Coeff of Arturo (11.5-14.5) % Plt Count (130-400) K/uL MPV (9.4-12.4) fL Immature Gran % (Auto) % Neut % (Auto) % Lymph % (Auto) % Troup % (Auto) % Eos % (Auto) % Baso % (Auto) % Neut # (Auto) (1.40-6.50) K/uL Lymph # (Auto) (1.2-3.4) K/uL Troup # (Auto) (0.11-0.59) K/uL Eos # (Auto) (0-0.50) K/uL Baso # (Auto) (0-0.2) K/uL Immature Gran # (Auto) (0.01-0.20) K/uL Sodium (136-145) mmol/L Potassium (3.5-5.1) mmol/L Chloride (98-107) mmol/L Carbon Dioxide (21-32) mmol/L Anion Gap (3-11) BUN (6-23) mg/dl Creatinine (0.6-1.4) mg/dl Est Cr Clr Drug Dosing ml/min Est GFR ( Amer) ml/min Est GFR (Non-Af Amer) ml/min BUN/Creatinine Ratio (10-20) Glucose (70-99(Fasting)) mg/dl Calcium (8.5-10.1) mg/dl Magnesium (1.7-2.4) mg/dl Total Bilirubin (0.2-1.0) mg/dl AST (13-39) U/L ALT (7-52) U/L Alkaline Phosphatase (34-104) U/L Troponin I High Sens (0-20) pg/ml Total Protein (6.0-8.3) gm/dl Albumin (3.4-5.0) gm/dl Globulin (2.5-4.0) gm/dl Albumin/Globulin Ratio (0.9-2) SARS-CoV-2, RNA, NAAT NEGATIVE (NEGATIVE) Blood Type A Positive Antibody Screen NEGATIVE Administered Medications Discontinued Medications Sodium Chloride (Nss 1000ml) 1,000 mls @ 999 mls/hr IV .Q1H1M ONE Stop: 05/19/22 20:33 Last Infusion: 05/19/22 21:36 Dose: 0 mls/hr Documented By: Admin: 05/19/22 19:46 Dose: 999 mls/hr Documented By: [id number] Sodium Chloride (Nss 1000ml) 500 mls @ 999 mls/hr IV .Q31M ONE Stop: 05/19/22 21:33 Last Infusion: 05/19/22 22:45 Dose: 0 mls/hr Documented By: Admin: 05/19/22 21:36 Dose: 999 mls/hr Documented By: [facility] Imaging Data Attestation: I personally reviewed and interpreted this imaging study as follows: My Impression: Chest x-ray per my review: There is no pneumonia or CHF. No pneumothorax. Discharge Plan Visit Data Chief Complaint: Shortness of Breath/Dyspnea Stated Complaint: SOB,O2 LOW, CATCHING HEAD COLD ED Provider: Mateo Galvan Discharge Problem: Hypotension, Tachycardia, Anemia, SOB (shortness of breath), Acute dehydration Patient Disposition: Admitted As Inpatient Condition: Fair Discharge Instructions Interventions: ED Discharge Assessment Last Done: 05/19/22 23:24
[2022-05-19] MEDS ORDERED: SODIUM CHLORIDE 0.9% 1000ML 500 ML IV ONE (21:03)
[2022-05-19 21:05] LABS: Albumin Level 3.9 gm/dl (3.4-5.0); Bilirubin,Total 0.8 mg/dl (0.2-1.0); Calcium 8.6 mg/dl (8.5-10.1); Potassium 4.4 mmol/L (3.5-5.1)
[2022-05-19 21:11] LABS: Albumin Globulin Ratio 1.1 (0.9-2); BUN Creatinine Ratio 12.2 (10-20); Creatinine Clr Calc Pharmacy 47.3 ml/min; Est GFR (African American) 53.6 ml/min; Est GFR (Non-African American) 46.3 ml/min; Globulin 3.5 gm/dl (2.5-4.0); Total Protein 7.4 gm/dl (6.0-8.3)
[2022-05-19 22:01] LABS: Magnesium 1.8 mg/dl (1.7-2.4)
--- NOTE | 2022-05-19 22:45 | History & Physical Report ---
Patient seen and examined. I agree with the history and physical and the plan as outlined in the resident's note. Date of Service May 19, 2022 Assessment & Plan (1) Hypotension: Plan: -Suspect pt's presenting symptoms were likely due to orthostatic hypotension secondary to dehydration from excessive reduction of water intake -Improved with IVF repletion in ER -Continue NSS 80cc/hr mIVF at present -Lactate, BCx, UCx pending, however there is low suspicion for active infection in light of his largely unremarkable workup -Orthostatic vitals requested -Holding home antihypertensives/sedatives (2) Hyponatremia: Plan: -Na 131 on admission -Pt with known chronic hyponatremia likely due to SIADH, baseline around 130 -Continue NaCl supplementation -Continue NSS repletion although cautiously to avoid dilutional hyponatremia -Trend BMP (3) Sinus tachycardia: Plan: -Mild sinus tachycardia to 100s on admission -Likely physiologic tachycardia secondary to dehydration -Continue monitoring (4) Peptic ulcer: Plan: -Hgb 11.4 on admission (baseline around 10), ulcer discovered on last admission currently stable and no reported melena or other bleeding concern at present -Trend CBC (5) CAD (coronary artery disease), alutiiq coronary artery: Plan: -Continue metoprolol, statin and aspirin -Maintain K > 4, Mg > 2 (6) H/O malignant neoplasm of rectum: Plan: -Colostomy with normal output and stool appearance (7) Peripheral neuropathy: Plan: -Holding gabapentin on admission to prevent further sedation in context of recent dizziness/lightheadedness (8) Obstructive sleep apnea: Plan: -CPAP Hs (9) BPH with obstruction/lower urinary tract symptoms: Plan: -Holding tamsulosin on admission to avoid worsening hypotension (10) DM2 (diabetes mellitus, type 2): Plan: -A1C 7.3% in 03/03 -Holding home agents -Lantus, SSI in hospital (11) Hypertension: Plan: -Holding home amlodipine on admission due to hypotension -We will continue metoprolol primarily for CAD as above (12) Hyperlipidemia: Plan: -Continue home statin (13) GERD (gastroesophageal reflux disease): Plan: -Continue home famotidine and pantoprazole Plan FENGI: DM2, heart-healthy diet Code status: Full DVT ppx: SCDs Isolation: None Dispo: Medical/surgical History of Present Illness Chief Complaint: Dizziness Primary Care Provider: Loy Browning, III, [employer] 72 yo M with PMH anemia, chronic hyponatremia, CAD s/p JOO to RCA, DM2 w/ peripheral neuropathy, HARJEET, HTN, HLD, PPH, rectal cancer s/p colectomy with ostomy, recent hospitalizations for COVID pneumonia and hyponatremia + peptic ulcer now presenting with dizziness. Pt recently admitted 04/18 - 04/19 for AMS 2/2 COVID pneumonia. Admitted again 05/07 - 05/11 for persistent dyspnea, dizziness, poor oral intake with associated hyponatremia and peptic ulcer. Pt states he has tried to limit his water intake as instructed after discharge for treatment of hyponatremia. He did begin to feel better but reports onset of dizziness and lightheadedness beginning last night. Notes it is worse when changing positions from sitting/laying down to standing. He was brought to ER by after she took his BP at home and it was 100s/50s. She felt he had grown more pale. Pt denies any associated chest pain, bleeding, melena, hematochezia, dyspnea or abdominal pain. Pt arrived to ER with tachycardia 90s-100s, BP 82/56 which did improve to 100s/50s-60s with IVF repletion. Labs- Hgb 11.4, Na 131 (baseline 130), Cr 1.48 (baseline 1), glucose 294. CXR and EKG without acute findings. CBC, CMP, troponin otherwise unremarkable. On my evaluation, pt reports feeling better. In hindsight, he does feel he may have excessively limited his water intake. Allergies Allergy/AdvReac Type Severity Reaction Status Date / Time rosuvastatin AdvReac Severe Myalgia Verified 05/19/22 21:10 Home Medications Medication Instructions Recorded Confirmed Type acetaminophen 500 mg capsule 500 mg PO Q8H PRN Pain 10/12/20 05/19/22 History aspirin 81 mg tablet,delayed 81 mg PO QAM #30 tabs 11/05/20 05/19/22 Rx release naloxone 4 mg/actuation nasal spray 1 spray intranasal Q3M PRN OVER 12/19/20 05/19/22 History SEDATION loratadine 10 mg tablet (Claritin) 10 mg PO QAM PRN Congestion 04/19/21 05/19/22 History multivitamin 1 tab PO DAILY 04/19/21 05/19/22 History atorvastatin 40 mg tablet 40 mg PO QAM #90 tabs 11/23/21 05/19/22 Rx metoprolol succinate 25 mg 25 mg PO DAILY #90 tabs 01/17/22 05/19/22 Rx tablet,extended release 24 hr amlodipine 10 mg tablet 10 mg PO QAM #90 tabs 02/16/22 05/19/22 Rx tamsulosin 0.4 mg capsule 0.4 mg PO HS #90 caps 03/02/22 05/19/22 Rx oxycodone 5 mg tablet 5 mg PO BID Pain 30 days #60 tabs 04/21/22 05/19/22 Rx oxymorphone 30 mg tablet,extended 30 mg PO BID #60 tabs 04/21/22 05/19/22 Rx release,12 hr gabapentin 600 mg tablet 300 mg PO QID Unknown #60 tabs 04/26/22 05/19/22 Rx baclofen 20 mg tablet 20 mg PO BID PRN MUSCLE SPASMS 05/06/22 05/19/22 History metformin 500 mg tablet 500 mg PO BIDM 05/06/22 05/19/22 History famotidine 20 mg tablet 20 mg PO BID 30 days #60 tabs 05/11/22 05/19/22 Rx pantoprazole 40 mg tablet,delayed 40 mg PO BID 30 days #60 tabs 05/11/22 05/19/22 Rx release sodium chloride 1,000 mg soluble 1,000 mg PO DAILY #10 tabs 05/11/22 05/19/22 Rx tablet sucralfate 1 gram tablet (Carafate) 1 g PO QID 14 days #56 tabs 05/12/22 05/19/22 Rx Past Med/Surg History Medical History Acute upper gastrointestinal bleeding LYUBOV (acute kidney injury) Anxiety disorder BPH with obstruction/lower urinary tract symptoms CAD (coronary artery disease), alutiiq coronary artery Cervical fusion syndrome Chronic back pain DM2 (diabetes mellitus, type 2) High anion gap metabolic acidosis Hypertension Hypocalcemia Hypomagnesemia Hyponatremia Hypophosphatemia Hypoxia Metabolic acidosis Obstructive sleep apnea Osteoarthritis Partial small bowel obstruction Peripheral neuropathy Postlaminectomy syndrome of lumbosacral region SBO (small bowel obstruction) ST elevation (STEMI) myocardial infarction Statin myopathy Syncope Thumb pain Transaminitis Surgical History H/O inguinal hernia repair H/O resection of rectum History of rectal surgery Previous back surgery S/P cervical spinal fusion S/P drug eluting coronary stent placement S/P PTCA (percutaneous transluminal coronary angioplasty) S/P tonsillectomy and adenoidectomy Family History Father Cardiovascular disease Cardiac disorder Prostate cancer Mother Dementia Diabetes Other Hypertension No significant family history Denies family history of Ovarian cancer Myocardial infarction Breast cancer Colorectal cancer Social History Smoking Status: Never smoker Tobacco Type: Smokeless Tobacco (Dip or Chew) Age Started Using Tobacco: 17; Age Quit Using Tobacco: 24; packs per day: 1; Cigarettes Per Day: 20; Second Hand Exposure: No; Hx Alcohol Use: No Hx Substance Use: No Preferred Language: [place] Communication Ability: Effective Visual Impairment: No Limitations Hearing Ability: Normal Sas Administrator Required: No Beliefs That Will Affect Care: None marital status: Current Living Situation: Spouse current occupational status: retired How many Children do You have: 4 Feels Safe at Home: Yes Childhood Exposure to Second-Hand Smoke: No caffeine: Yes during the past year weight has: remained stable Dental Care, Regularly: No Physical Activity Frequency: Daily Seatbelt Use: always Sunscreen Use: No Assistive Devices: Walker Review of Systems Review of Systems: Per HPI Physical Exam Constitutional: Gen- WN, WD, laying comfortably in no acute distress HEENT- NC/AT, PERRLA, EOMI, dry mucous membranes, clear oropharynx Resp- CTAB, unlabored respirations CV- Regular rhythm, tachycardic, normal S1 and S2, +systolic murmur at LUSB, no JVD, no LE edema Abd- soft, NT, ND, no guarding or rebound. Colostomy bag with normal stool appearance and output Skin- no rashes, warm and dry, +mild central pallor Neuro- AOx3, no focal motor or sensory deficits Results & Data Results [facility] ([facility]) Vital Signs (Past 12 Hours) Vital Signs Temp Pulse Resp BP Pulse Ox O2 Del Method 05/19/22 20:50 101 H 15 98 05/19/22 20:40 93 H 10 L 93 05/19/22 20:30 95 H 15 117/67 98 05/19/22 20:20 95 H 14 95 05/19/22 20:10 88 13 94 05/19/22 20:00 97 H 18 99/69 L 94 05/19/22 19:50 100 H 13 93 05/19/22 19:40 102 H 12 94 05/19/22 19:30 108 H 16 106/73 95 05/19/22 19:20 114 H 25 H 95 05/19/22 19:10 114 H 12 97 05/19/22 19:00 113 H 12 100/68 95 05/19/22 18:51 117 H 21 97 05/19/22 20:56 Room Air 05/19/22 20:53 98 Room Air 05/19/22 18:55 115 H 05/19/22 18:40 36.8 C 123 H 22 82/56 L 96 Room Air Code Status & VTE Plan VTE Prophylaxis Plan VTE Prophylaxis will be ordered: Yes Resident Activity Tracking Resident Involvement: Resident Care Provided Care Provided: Adult Hospital Medicine (5) CAD (coronary artery disease), alutiiq coronary artery [place] vs. 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
[2022-05-19 23:19] LABS: Appearance Urine Clear (Clear); Bilirubin Urine Negative (Negative); Blood Urine Negative (Negative); Color Urine Yellow; Glucose Urine UA 1+ (Negative); Ketones Urine Negative (Negative); Leukocyte Esterase Urine Negative (Negative); Nitrite Urine Negative (Negative); Protein Urine Negative (Negative); Specific Gravity Urine 1.016 (1.000-1.030); Urobilinogen Urine Negative (Negative)
[2022-05-20] MEDS ORDERED: CARBOHYDRATES FOR HYPOGLYCEMIA PO PRN (00:13)
[2022-05-20] MEDS ORDERED: GLUCAGON FOR INJ 1 MG VIAL SQ PRN (00:13)
[2022-05-20] MEDS ORDERED: ONDANSETRON INJ 2 MG/ML 2 ML VIAL IV PRN (00:13)
[2022-05-20] MEDS ORDERED: DEXTROSE 50% 50 ML SYRINGE IV PRN (00:13)
[2022-05-20] MEDS ORDERED: GLUCOSE 40% GEL 15 GM TUBE PO PRN (00:13)
[2022-05-20] MEDS ORDERED: ACETAMINOPHEN 325 MG TAB PO PRN (00:13)
[2022-05-20] MEDS ORDERED: GLUCOSE 10 TAB/TUBE PO PRN (00:13)
[2022-05-20] MEDS ORDERED: SODIUM CHLORIDE 0.9% 1000ML 1,000 ML IV SCH (00:13)
[2022-05-20] MEDS: INSULIN ASPART PER UNIT SC SCH ×3 (02:35→13:53)
--- NOTE | 2022-05-20 07:58 | XRay Report ---
XR chest 1V portable CLINICAL HISTORY: Dyspnea TECHNIQUE: Single frontal radiograph of the chest was obtained. Comparison: Comparison is made to chest radiograph 05/30/2022 FINDINGS: Posterior fixation hardware is seen in the thoracolumbar spine and there is cervical fixation hardwar e as well. The cardiomediastinal silhouette is normal. The lungs are clear. No evidence of pleural ef fusion or pneumothorax. IMPRESSION: No acute abnormalities and in particular no radiographic evidence of pneumonia. ACT 112: Negative or not required by law. Electronically signed by: Gary Tran M.D. 05/20/2022 7:57 AM
--- NOTE | 2022-05-20 08:37 | Hospitalist Progress Note ---
Date of Service May 20, 2022 Assessment & Plan Admission and Anticipated Discharge Date Admission Date: May 19, 2022 Subjective Mr. Brorego was seen lying comfortably at the bedside today. He is feeling pretty good this morning. He says that he thinks he feels less lightheaded and dizzy than yesterday but has not been up to walk around yet. He does not have any sob, chest pain, abd pain, nausea or vomiting. He has not noted any melena or hematochezia. Review of Systems Review of Systems: see HPI Physical Exam Physical Exam: Gen- WN/WD, non-toxic appearing, lying comfortably in no acute distress HEENT- NC/AT, PERRL. oral and phayngeal mucosa moist Pulm- CTABL in all posterior lung linares, spontaneous non-labored breathing CV- normal s1 and s2, no m/r/g. no LE edema Abd- hypoactive-normal bowel sounds, mildly firm. non-tender to palpation in all 4 quadrants. ostomy bag visualized with no leakage, surrounding edema, erythema, rashes. MSK/Derm- skin is warm and dry Neuro/Psych- CN II-XII grossly intact. sensation grossly intact b/l to UE/LE. normal mood and affect. Results & Data Results & Data ([facility]) Vital Signs (Past 12 Hours) Vital Signs Temp Pulse Pulse Pulse Resp BP BP 05/20/22 08:00 37.0 C 98 H 16 122/74 05/20/22 00:13 36.5 C 100 H 18 137/76 05/19/22 23:23 98 H 05/19/22 23:09 114 H 22 05/19/22 22:30 18 05/19/22 22:30 113/84 05/19/22 22:01 102 H 11 L 05/19/22 22:01 133/81 05/19/22 22:00 95 H 14 05/19/22 21:30 96 H 12 05/19/22 21:30 148/79 H 05/19/22 21:00 96 H 23 05/19/22 21:00 118/76 05/19/22 20:50 101 H 15 05/19/22 20:40 93 H 10 L 05/19/22 20:56 05/19/22 20:53 Pulse Ox O2 Del Method 05/20/22 08:00 95 Room Air 05/20/22 00:13 97 Room Air 05/19/22 23:23 05/19/22 23:09 05/19/22 22:30 94 05/19/22 22:30 05/19/22 22:01 94 05/19/22 22:01 05/19/22 22:00 05/19/22 21:30 93 05/19/22 21:30 05/19/22 21:00 94 05/19/22 21:00 05/19/22 20:50 98 05/19/22 20:40 93 05/19/22 20:56 Room Air 05/19/22 20:53 98 Room Air
[2022-05-20] MEDS ORDERED: SODIUM CHLORIDE 1 GM TABLET PO SCH (09:00)
[2022-05-20] MEDS ORDERED: LANTUS PER UNIT CHARGE SQ SCH (09:00)
[2022-05-20] MEDS ORDERED: ATORVASTATIN 40 MG TAB PO SCH (09:00)
[2022-05-20] MEDS ORDERED: METOPROLOL SUCC 25MG EXT REL TAB PO SCH (09:00)
[2022-05-20] MEDS ORDERED: PANTOprazole 40 MG TAB PO SCH (09:00)
[2022-05-20] MEDS ORDERED: FAMOTIDINE 20 MG TAB PO SCH (09:00)
[2022-05-20] MEDS ORDERED: MAGNESIUM OXIDE 400 MG TAB PO SCH (09:00)
[2022-05-20] MEDS ORDERED: ASPIRIN 81 MG ECTAB PO SCH (09:00)
[2022-05-20 09:45] LABS: Hematocrit (blood only) 29.9 % (42.0-52.0); Hemoglobin 10.1 g/dl (14.0-18.0); Mean Corpuscular Hemoglobin 28.7 pg (25.0-34.0); Mean Corpuscular Hgb Conc 33.8 g/dL (32.0-36.0); Mean Corpuscular Volume 84.9 fL (80.0-100.0); Mean Platelet Volume 9.2 fL (9.4-12.4); Platelet Count 305 K/uL (130-400); RDW Coefficient of Variation 13.2 % (11.5-14.5); Red Blood Count 3.52 M/uL (4.70-6.10); White Blood Count 4.99 K/ul (4.8-10.8)
[2022-05-20 10:22] LABS: BUN Creatinine Ratio 12.2 (10-20); Calcium 8.2 mg/dl (8.5-10.1); Creatinine Clr Calc Pharmacy 71.5 ml/min; Est GFR (African American) 88.3 ml/min; Est GFR (Non-African American) 76.2 ml/min; Magnesium 1.8 mg/dl (1.7-2.4); Potassium 4.2 mmol/L (3.5-5.1)
--- NOTE | 2022-05-20 13:37 | Discharge Summary ---
Date of Service May 20, 2022 Admission HPI Per Admitting Provider 72 yo M with PMH anemia, chronic hyponatremia, CAD s/p JOO to RCA, DM2 w/ peripheral neuropathy, HARJEET, HTN, HLD, PPH, rectal cancer s/p colectomy with ostomy, recent hospitalizations for COVID pneumonia and hyponatremia + peptic ulcer now presenting with dizziness. Pt recently admitted 04/18 - 04/19 for AMS 2/2 COVID pneumonia. Admitted again 05/07 - 05/11 for persistent dyspnea, dizziness, poor oral intake with associated hyponatremia and peptic ulcer. Pt states he has tried to limit his water intake as instructed after discharge for treatment of hyponatremia. He did begin to feel better but reports onset of dizziness and lightheadedness beginning last night. Notes it is worse when changing positions from sitting/laying down to standing. He was brought to ER by after she took his BP at home and it was 100s/50s. She felt he had grown more pale. Pt denies any associated chest pain, bleeding, melena, hematochezia, dyspnea or abdominal pain. Pt arrived to ER with tachycardia 90s-100s, BP 82/56 which did improve to 100s/50s-60s with IVF repletion. Labs- Hgb 11.4, Na 131 (baseline 130), Cr 1.48 (baseline 1), glucose 294. CXR and EKG without acute findings. CBC, CMP, troponin otherwise unremarkable. On my evaluation, pt reports feeling better. In hindsight, he does feel he may have excessively limited his water intake. Admission Exam Per Admitting Provider Gen-WN, WD, laying comfortably in no acute distress HEENT- NC/AT, PERRLA, EOMI, dry mucous membranes, clear oropharynx Resp- CTAB, unlabored respirations CV- Regular rhythm, tachycardic, normal S1 and S2, +systolic murmur at LUSB, no JVD, no LE edema Abd- soft, NT, ND, no guarding or rebound. Colostomy bag with normal stool appearance and output Skin- no rashes, warm and dry, +mild central pallor Neuro- AOx3, no focal motor or sensory deficits Principal Diagnosis Dehydration Discharge Exam Gen- WN/WD, non-toxic appearing, lying comfortably in no acute distress HEENT- NC/AT, PERRL. oral and phayngeal mucosa moist Pulm- CTABL in all posterior lung linares, spontaneous non-labored breathing CV- normal s1 and s2, no m/r/g. no LE edema Abd- hypoactive-normal bowel sounds, mildly firm. non-tender to palpation in all 4 quadrants. ostomy bag visualized with no leakage, surrounding edema, erythema, rashes. MSK/Derm- skin is warm and dry Neuro/Psych- CN II-XII grossly intact. sensation grossly intact b/l to UE/LE. normal mood and affect. Discharge Data Allergies Allergy/AdvReac Type Severity Reaction Status Date / Time rosuvastatin AdvReac Severe Myalgia Verified 05/19/22 21:10 Consultations 05/19/22 21:26 ED Decision to Admit Stat Ordered Studies Cardiac Enzymes 05/19/22 Range/Units 18:55 AST 12 L (13-39) U/L Troponin I High Sens 10.0 (0-20) pg/ml CBC 05/19/22 05/20/22 Range/Units 18:55 08:52 WBC 8.90 4.99 (4.8-10.8) K/ul RBC 4.01 L 3.52 L (4.70-6.10) M/uL Hgb 11.4 L 10.1 L (14.0-18.0) g/dl Hct 34.8 L 29.9 L (42.0-52.0) % Plt Count 415 H 305 (130-400) K/uL Neut # (Auto) 6.47 (1.40-6.50) K/uL Lymph # (Auto) 1.25 (1.2-3.4) K/uL [place] # (Auto) 0.97 H (0.11-0.59) K/uL Eos # (Auto) 0.04 (0-0.50) K/uL Baso # (Auto) 0.02 (0-0.2) K/uL Comprehensive Metabolic Panel 05/19/22 05/20/22 Range/Units 18:55 08:52 Sodium 131 L 134 L (136-145) mmol/L Potassium 4.4 4.2 (3.5-5.1) mmol/L Chloride 95 L 102 (98-107) mmol/L Carbon Dioxide 25 27 (21-32) mmol/L BUN 18 12 (6-23) mg/dl Creatinine 1.48 H 0.98 D (0.6-1.4) mg/dl Glucose 294 H 145 H (70-99(Fasting)) mg/dl Calcium 8.6 8.2 L (8.5-10.1) mg/dl AST 12 L (13-39) U/L ALT 17 (7-52) U/L Alkaline Phosphatase 88 (34-104) U/L Total Protein 7.4 (6.0-8.3) gm/dl Albumin 3.9 (3.4-5.0) gm/dl Intake and Output 05/19/22 05/20/22 05/20/22 22:59 06:59 14:59 Intake Total 1500 / 1600 100 / 1600 240 / 240 Output Total 850 / 850 Balance 1500 / 750 -750 / 750 240 / 240 Intake: IV 1500 / 1500 Sodium Chloride 0.9% 1000ML 500 1500 / 1500 ml @ 999 mls/hr IV .Q31M ONE Rx#:[id number] Oral 100 / 100 240 / 240 Output: Urine 850 / 850 Other: # Unmeasured Voids 1 Weight 89.1 kg 89.1 kg Weight Measurement Method Built in Bedscale Standing Scale Chest X-Ray 05/19/22 18:57 XR chest 1V portable CLINICAL HISTORY: Dyspnea TECHNIQUE: Single frontal radiograph of the chest was obtained. Comparison: Comparison is made to chest radiograph 05/30/2022 FINDINGS: Posterior fixation hardware is seen in the thoracolumbar spine and there is cervical fixation hardware as well. The cardiomediastinal silhouette is normal. The lungs are clear. No evidence of pleural effusion or pneumothorax. IMPRESSION: No acute abnormalities and in particular no radiographic evidence of pneumonia. ACT 112: Negative or not required by law. Electronically signed by: Gary Tran M.D. 05/20/2022 7:57 AM Hospital Course (1) Hypotension: (2) Anemia: (3) Acute dehydration: (4) GERD (gastroesophageal reflux disease): (5) Hyperlipidemia: (6) Normocytic normochromic anemia: (7) Peptic ulcer: (8) Hyponatremia: (9) DM2 (diabetes mellitus, type 2): (10) Tachycardia: (11) Hypertension: (12) Obstructive sleep apnea: (13) Peripheral neuropathy: (14) CAD (coronary artery disease), [place] coronary artery: Plan 72 yo M with a PMH of anemia, chronic hyponatremia, CAD s/p JOO to RCA, DM2 with peripheral neuropathy, HARJEET, HTN, HLD, rectal cancer s/p colectomy, and recent hospitalizations with COVID pneumonia (04/18), hyponatremia and peptic ulcer (05/07), who presented with dizziness. Hypotension, secondary to dehydration -Presenting symptoms likely due to orthostatic hypotension secondary to dehydration from excessive reduction of water intake (about ~1000ml) -Improved with IVF repletion in ER -Continued NSS 80cc/hr mIVF during this admission -Lactate 1.3, blood cultures still pending, urine culture pending, however there is low suspicion for active infection in light of his largely unremarkable CBC, CMP, and clinical signs of infection -Held home antihypertensives/sedatives during this admission -On hospital day 1, pt felt better walking around with no dizziness, lightheadedness - Follow-up with PCP in 1 week Chronic hyponatremia -Na 131 on admission, 134 hospital day 1 with gentle fluid resuscitation -Pt with known chronic hyponatremia likely due to SIADH, baseline around 130 -Continue NaCl supplementation -Continue NSS repletion although cautiously to avoid dilutional hyponatremia -Trended BMP during this admission, Na 134 on discharge - Discontinue fluid restriction on discharge, continue salt tabs - Follow-up with PCP in 1 week Sinus tachycardia -Mild sinus tachycardia to 100s during this admission -Likely physiologic tachycardia secondary to dehydration -Stable at 90s on discharge Peptic ulcer -Hgb 11.4 on admission (baseline around 10), ulcer discovered on last admission currently stable and no reported melena or other bleeding concern during this admission -CBC was trended; stable chronic normocytic anemia CAD -Continued metoprolol, statin and aspirin during this admission -K > 4, Mg > 2 were maintained, BMP trended Rectal cancer s/p colectomy -Colostomy with normal output and stool appearance Peripheral neuropathy -Held gabapentin during this admission to prevent further sedation in context of recent dizziness/lightheadedness HARJEET -CPAP Hs BPH -Held tamsulosin during this admission to avoid worsening hypotension DM2 -A1C 7.3% in 03/03 -Held home agents during this admission -Lantus, SSI in hospital -Continue home insulin and metformin Hypertension -Held home amlodipine on admission due to hypotension, BP normalized hospital day 1 -Continued metoprolol for CAD during this admission HLD -Continue home statin GERD -Continue home famotidine and pantoprazole Total Time Total Time Spent Total Time Spent (In Minutes): see attending documentation Discharge Plan Discharge Items Patient Disposition: Home - Self-Care Reason For Visit: DIZZINESS Discharge Diagnosis: Dehydration Condition on Discharge: Fair Activity: Per Instructions section Non-emergency contact: Primary Care Provider Call non-emergency contact if: your symptoms worsen, your pain is not controlled, your pain is concerning for you and your temperature is above 101 Follow-up/Referrals: Loy Browning III, CRNP [Primary Care Provider] - 05/25/22 9:20 am (Please make an appointment for hospital discharge follow up within 1 week from discharge) Diet: Carb Consistent or DM2 Addtl Attending Provider Instructions: You were admitted to the hospital for dehydration. You were treated with IV fluids. You are being discharged without any restrictions for fluids, please eat a healthy diet and drink fluids per usual. A discharge summary will be sent to your primary care physician to ensure continuity of care. Please bring this discharge summary with you to your next office appointment so that your provider can review it at that time. Follow-up appointments: Make a follow-up appointment with your PCP within the next week. It is very important that you follow up with them shortly after discharge from the hospital Medications: Your medication list has been reviewed and reconciled upon discharge to ensure accuracy and continuity of care. An updated list of all your medications is included with your hospital discharge paperwork. We have not made any intentional changes to your medication list. Atorvastatin 40 mg once daily Amlodipine 10 mg once daily Aspirin 81 mg once daily Famotidine 20 mg once daily Gabapentin 600 mg once daily Metformin 500 mg twice daily Metoprolol succinate 25 mg once daily Sodium chloride tablets once daily Pantoprazole 40 mg once daily Sucralfate 1g- dissolve 1 tablet in 30 cc in water, four times daily Tamsulosin .4 mg once daily Take your medications as instructed; do not skip a dose of your medicines. Make sure all of your doctors know every medicine you are taking (including ahfh-dwv-btzhkno medicines, vitamins, and supplements). Call your primary care provider before taking any new medicines (including over- the-counter medicines, vitamins, and supplements), because some of these may interact with your current medications, or may make your symptoms worse. Tell your primary care provider if you cannot afford your medications. CONTACT YOUR PRIMARY CARE PROVIDER if you experience any of the following: fever, pain, chills, dizziness Difficulty following your treatment plan, or difficulty taking medications CALL 911 OR GO TO THE EMERGENCY DEPARTMENT if you experience any of the following: Sudden, severe abdominal pain or nausea/vomiting Severe chest pain, or chest pain that radiates (moves) to your jaw or arm Sudden, severe shortness of breath or difficulty breathing Thank you for allowing us to participate in your care. Pending Studies at Discharge: No Stand-Alone Forms: My [facility], Smoking Cessation Medications and DC Order Prescriptions: Continued acetaminophen 500 mg capsule 500 mg PO Q8H PRN (Reason: Pain) atorvastatin 40 mg tablet 40 mg PO QAM Qty: 90 3RF metoprolol succinate 25 mg tablet extended release 24 hr 25 mg PO DAILY Qty: 90 1RF amlodipine 10 mg tablet 10 mg PO QAM Qty: 90 1RF tamsulosin 0.4 mg capsule 0.4 mg PO HS Qty: 90 3RF oxycodone 5 mg tablet 5 mg PO BID 30 Days Qty: 60 0RF oxymorphone 30 mg tablet extended release 12 hr 30 mg PO BID Qty: 60 0RF Rx Instructions: pt states he takes at 06:00am + 06:00pm gabapentin 600 mg tablet 300 mg PO QID Qty: 60 3RF sucralfate [Carafate] 1 gram tablet 1 g PO QID 14 Days Qty: 56 0RF Rx Instructions: Dissolve 1 tablet in 30 cc warm water and drink four times daily naloxone 4 mg/actuation spray,non-aerosol 1 spray intranasal Q3M PRN (Reason: OVER SEDATION) Rx Instructions: spray 1 dose into ONE nostril; alternate nostrils w each dose until help arrives metformin 500 mg tablet 500 mg PO BIDM Rx Instructions: TAKE 1 TABLET TWICE A DAY baclofen 20 mg tablet 20 mg PO BID PRN (Reason: MUSCLE SPASMS) Rx Instructions: TAKE 1 TABLET BY MOUTH TWICE A DAY NEEDED FOR MUSCLE SPASM famotidine 20 mg Tablet 20 mg PO BID 30 Days Qty: 60 0RF pantoprazole 40 mg Tablet,Delayed Release (Dr/Ec) 40 mg PO BID 30 Days Qty: 60 0RF sodium chloride 1,000 mg Tablet,Soluble 1,000 mg PO DAILY Qty: 10 0RF aspirin 81 mg Tablet,Delayed Release (Dr/Ec) 81 mg PO QAM Qty: 30 0RF Rx Instructions: OTC multivitamin Tablet 1 tab PO DAILY loratadine [Claritin] 10 mg Tablet 10 mg PO QAM PRN (Reason: Congestion) Discharge Orders: Discharge Order (Routine); Ordered 05/20/22 Ordered By: Benita Castle Admission Data Admit Date/Time: 05/19/22 22:35 Attending Provider: Haven Burns Admit Provider: Chacho Cherry Primary Care Provider: Loy Browning III Other Providers: Travis Dietrich Other Interventions: Discharge Summary Assessment (RN) Last Done: 05/20/22 16:09 Supervising Physician Co-Signing Physician Notes Medical Student Supervision Note: I was personally present during medical student patient encounter and independently interviewed and examined the patient and verified the carrion history and physical, reviewed labs and image studies, discussed the case with Pia Joshi and agree with the findings and care plan. 72 yo M with a PMHx of anemia, chronic hyponatremia, CAD s/p JOO to RCA, DM2 with peripheral neuropathy, HARJEET, HTN, HLD, rectal cancer s/p colectomy, and recent hospitalizations with COVID pneumonia (2), hyponatremia and peptic ulcer (05/07), presented with dizziness due to hypovolemia from decreased PO intake from water restriction. o/e - AAOx3, heart regular, no respiratory distress, normal mood and affect a/p - Hypovolemia with hypotension - sec to misunderstood strict water restriction recommended for hyponatremia. was including ensure as part of water restricting. treated with approximately 4L of IVF. dizziness resolved. Did well walking around. d/rachel home with loser fluid restriction.
--- NOTE | 2022-05-21 09:13 | Electrocardiogram Report ---
Test Reason : Blood Pressure : / mmHG Vent. Rate : 112 BPM Atrial Rate : 319 BPM P-R Int : 000 ms QRS Dur : 086 ms QT Int : 328 ms P-R-T Axes : 065 021 047 degrees QTc Int : 447 ms Sinus tachycardia Inferior infarct (cited on or before 20-APR-2020) Diffuse ST elevation, consider early repolarization, pericarditis, or injury Abnormal ECG When compared with ECG of 06-MAY-2022 20:58, ST elevation now present in Inferior leads ST elevation now present in Lateral leads Confirmed by Danny Cordero ([id number]) on 05/21/2022 9:13:08 AM Referred By: REFERRED SELF Confirmed By:Danny Cordero
== END 2022-05-20 16:25 | disposition home or self-care (01) ==
LOC: ED 18:18 → INTOOBSV 22:35 → SUATTDRO 22:35 → 3W 22:35

== ENCOUNTER 2023-12-09 12:51 | Inpatient (IN) ==
--- OUTSIDE RECORDS SUMMARY | 2023-12-09 13:09 | External Medical Summary | Summary of Care ---
Author Name Unknown Organization [facility] Address [address] [place] [address] Phone [phone] Care Team Providers Care Manager Developmental Name Role Phone Andreea Sevilla MD Primary Care Provider Encounter Details Date Type Department Care Team (Late st Contact Info) Description 11/30/2023 Population Health External Data Unspecified Department Allergies Active Allergy Reactions Criticality Noted Date Comments No Known Drug Allergy 12/10/2003 documented as of this encounter (statuses as of 12/04/2023) Medications Medication Sig Dispensed Refills Start Date End Date Status OXYCODONE HCL 5 MG OR TABSIndications:Ros kache 1 tablet up to three times a day as needed for breakthrough pain 80 0 11/20/2003 Active baclofen (LIORESAL) 10 MG Tablet Take 1 Tablet by mouth in the morning and 1 Tablet before bedtime. Active Aspirin 81 MG Oral Tablet Delayed Release (Aspir-Low) Take 1 Tablet by mouth in the morning. Active Atorvastatin Calcium 40 MG Oral Tablet (Lipitor) Take 1 Tablet by mouth in the morning. 02/11/2023 Active Famotidine 20 MG Oral Tablet (Pepcid) Take 1 Tablet by mouth in the morning and 1 Tablet before bedtime. Active Farxiga 5 MG Oral Tablet Take 1 Tablet by mouth in the morning. Active Gabapentin 600 MG Oral Tablet (Neurontin) Take 0.5 Tablets by mouth 4 times a day. 02/24/2023 Active metFORMIN HCl 1000 MG Oral Tablet (Glucophage) Take 1 Tablet by mouth daily. Active Metoprolol Succinate ER 25 MG Oral Tablet Extended Release 24 Hour (toPROL XL) Take 0.5 Tablets by mouth in the morning. Active Morphine Sulfate ER Beads 30 MG Oral Capsule Extended Release 24 Hour (AVINza) Take 1 Capsule by mouth in the morning. 02/01/2023 Active Pantoprazole Sodium 40 MG Oral Tablet Delayed Release (Protonix) Take 2 Tablets by mouth in the morning. 06/03/2022 Active Sodium Chloride 1 GM Oral Tablet Take 1 Tablet by mouth in the morning. Active Tamsulosin HCl 0.4 MG Oral Capsule (Flomax) Take 1 Capsule by mouth daily. 03/02/2022 Active documented as of this encounter (statuses as of 12/04/2023) Active Problems Problem Noted Date Diagnosed Date Sleep apnea 03/11/2003 BACKACHE NOS 08/07/2002 documented as of this encounter (statuses as of 12/04/2023) Social History Tobacco Use Types Packs/Day Years Used Date Smoking Tobacco: Former Smokeless Tobacco: Former Comments:1975 quit Alcohol Use Standard Drinks/Week Comments No 0 (1 standard drink = 0.6 oz pur e alcohol) Utilities Answer Date Recorded Do you have trouble paying y our heating, water, or electric bill? (Adult - for ages 18 years and over) Not on file 08/29/2023 Is your family able to pay t he heat, water, or electric bill? (Household - for ages 0-17 years) Not on file 08/29/2023 Does your family have access to good internet? (Household - for ages 0-17 years) Not on file 08/29/2023 Social Connections Answer Date Recorded How often do you feel lonely or isolated from those around you? (Adult - for ages 18 years and over) Not on file 08/29/2023 Sex and Gender Information Value Date Recorded Sex Assigned at Not on file Gender Identity Not on file Sexual Orientation Not on file Job Start Date Occupation Industry Not on file Not on file Not on file documented as of this encounter Plan of Treatment Health Maintenance Due Date Last Done Comments Depression Screening 1961 Hepatitis C Screening 1967 Cologuard 1994 Colonoscopy 1994 Colorectal Cancer Screening 1994 Fecal Occult Blood Test 1994 Sigmoidoscopy 1994 DTap/Tdap Vaccines (1 - Tdap) 08/08/2002, 08/07/2002 Lipid Panel 08/02/2009 08/02/2004, 12/16/2003, 02/07/2003 AAA Screening 2014 09/23/2003 COVID-19 Vaccine (2 - 2023-2 5 season) 2023 03/02/2021 Influenza Vaccine (FLU shot) (#1) 2023 12/21/2018, 02/07/2003 Zoster Vaccines Completed 03/26/2020, 01/07/2020, 10/09/2014 Pneumococcal Vaccine: 65+ Years Completed 09/20/2021, 09/06/2019 HPV (Gardasil) Vaccine Aged Out No lo nger eligible based on patient's age to complete this topic Hepatitis B Vaccine Aged Out No longe r eligible based on patient's age to complete this topic MENINGOCOCCAL (MENACTRA/MENVEO) Aged Out No longer eligible b ased on patient's age to complete this topic documented as of this encounter Medical Devices Not on filedocumented as of this encounter Care Teams Manager Developmental Relationship Specialty Start Date End Date Andreea Sevilla MD [id number] [place] [address] PCP - General Family Medicine 02/18/20 documented as of this encounter
[2023-12-09 13:36] LABS: Basophils # (auto) 0.03 K/uL (0.00-0.20); Basophils % (auto) 0.5 %; Eosinophils # (auto) 0.05 K/uL (0.00-0.50); Eosinophils % (auto) 0.8 %; Hematocrit (blood only) 42.4 % (42.0-52.0); Hemoglobin 12.6 g/dl (14.0-18.0); Immature Granulocytes # (auto) 0.03 K/uL (0.01-0.20); Immature Granulocytes % (auto) 0.5 %; Lymphocytes # (auto) 1.12 K/uL (1.20-3.40); Lymphocytes % (auto) 17.9 %; Mean Corpuscular Hemoglobin 22.5 pg (25.0-34.0); Mean Corpuscular Hgb Conc 29.7 g/dL (32.0-36.0); Mean Corpuscular Volume 75.7 fL (80.0-100.0); Mean Platelet Volume 10.2 fL (9.4-12.4); Monocytes # (auto) 0.38 K/uL (0.11-0.59); Monocytes % (auto) 6.1 %; Neutrophils # (auto) 4.65 K/uL (1.40-6.50); Neutrophils % (auto) 74.2 %; Platelet Count 235 K/uL (130-400); RDW Coefficient of Variation 16.1 % (11.5-14.5); RDW Standard Deviation 43.6 fL (36.4-46.3); White Blood Count 6.26 K/ul (4.8-10.8)
--- NOTE | 2023-12-09 13:43 | Emergency Department Note ---
Impression & Plan LYUBOV (acute kidney injury), Weakness, Acute dehydration ED Provider Note NAME: RED VILLARREAL AGE: 73 SEX: M : 1950 ARRIVES VIA: Walk-In INFORMANT: Patient, family member ED PROVIDER(S): Ryan Rg MD CHIEF COMPLAINT: Weakness, fatigue, COVID contacts MEDICAL DECISION MAKING: Patient presents due to concern for weakness and fatigue. IV was established and blood work was obtained. Patient was ordered IV fluids IV Zofran to try and help with appetite and patient was ordered p.o. Tylenol. Patient's blood work shows a normal white count with a hemoglobin of 12.6. Platelet count is unremarkable. Patient with a VBG pH is 7-6 pCO2 52. Patient's creat today is 2.2 from a baseline of around 1. Given this and the associated LYUBOV I do believe the patient would benefit from admission at this time. BioFire is negative. The patient's chest x-ray does not show any evidence of obvious pneumonia. Patient was placed on BiPAP by the inpatient service. Patient was admitted to the medicine service by Dr. Hinkle. Discussion w/ other healthcare providers: Dr. Hinkle inpatient medicine service Prior /Outside records reviewed: I reviewed part of her wellness visit from September 25, 2023 from [facility]. Patient was seen for his annual Medicare wellness exam. Patient with known prior history of BORIS DM2 hypertension CAD hyperlipidemia anemia Differential diagnosis: Infection, dehydration, metabolic abnormality, hypo/hyperglycemia, electrolyte imbalance, anemia, UTI, pneumonia, thyroid dysfunction among others were considered. Diagnostics, as interpreted by me: ECG:Normal sinus rhythm, rate of 79, normal intervals, normal axis no ST elevations or T WI. Cardiac monitoring: An order was placed for continuous cardiac monitoring. The monitor shows a rate of 82 with sinus rhythm. Patient was placed on pulse oximetry Medical decision rules: None Imaging studies: I informally interpreted the patient's chest x-ray does not show obvious pneumonia or pneumothorax with formal report to follow. HPI: Patient presents for feeling generally unwell with associated fatigue and poor appetite. The patient states that he has been feeling "shitty." Patient denies any chest pains or shortness of breath. The patient states that he began having symptoms about 7 or 10 days ago when he was last with his daughter who eventually tested positive for COVID-19. The patient has not taken a home test at home. Patient denies any falls or trauma. The patient denies any abdominal pain no nausea vomiting or diarrhea. Patient did take a Tylenol this morning for general aches and pains. Patient states that he does not much of an appetite he has not felt the urge to vomit. Patient denies any recent travel or changes in diet. Patient states that his presenting here today as he just wants to feel better more than anything else. Patient denies any known history of heart failure. He does report that he did have a cardiac stent placed about 3 years ago. No active chest pain or shortness of breath. Patient states that he has not had much of any cough. Patient is a former smoker last smoking greater than 30 years ago. patient does have an ostomy in the left abdomen. Patient states that his output has been normal. PAST MEDICAL HISTORY: See Below PAST SURGICAL HISTORY: See Below SOCIAL HISTORY: See Below HOME MEDICATIONS: See Below ALLERGIES: See Below VITALS: See Below PHYSICAL EXAMINATION: GENERAL: NAD, non-toxic. Wearing glasses and a mask. EYE EXAM: Normal conjunctiva. PERRL, no anisocoria and EOM's grossly intact w/o pain. OROPHARYNX: Moist mucus membranes, grossly normal dentition. NECK: Trachea midline, no stridor. Supple, no nuchal rigidity, no adenopathy, non-tender. No signs of meningismus. FROM of the neck with good chin to chest and neck extension. LUNGS: Clear to auscultation. Normal chest wall mechanics. HEART: NSR, no MRG. ABDOMEN: Abdomen soft, non-tender, left-sided ostomy noted, no masses, no rebound or guarding. BACK: No CVA TTP. SKIN: No rashes and no bruising. UPPER EXTREMITIES: Upper extremities are grossly normal. LOWER EXTREMITIES: Grossly normal, no edema. NEURO EXAM: A&O x3, cranial nerves II-XII grossly intact, normal speech, moves all 4 extremities. Past Med/Surg History Problem List (Updated 12/09/23 @ 20:31 by Ryan Rg MD) Acute dehydration (Acute) Weakness (Acute) LYUBOV (acute kidney injury) (Acute) Respiratory acidosis with metabolic acidosis LYUBOV (acute kidney injury) BPH NOS w ur obs/LUTS Anxiety disorder (Chronic) Hypertension Osteoarthritis (Chronic) DM2 (diabetes mellitus, type 2) Multiple pulmonary nodules (Chronic) Chronic lumbar pain (Chronic) CAD (coronary artery disease), sitka coronary artery Polypharmacy Prostate cancer screening encounter, options and risks discussed Nocturia Postlaminectomy syndrome of lumbosacral region Cervical fusion syndrome Thumb pain Arthritis of carpometacarpal (CMC) joint of left thumb Syncope and collapse (Acute) Hyponatremia Normocytic normochromic anemia Hyperlipidemia Anemia (Acute) Chronic, continuous use of opioids Medical History H/O malignant neoplasm of rectum Former smoker Smokeless tobacco use Colostomy in place Pneumonia due to COVID-[address] History of COVID-19 EARLY 04/2022, TESTED AT [facility], ADMITTED FOR 2 DAYS W/COVID PNEUMONIA; "FELT LIKE CRAP FOR 3 WEEKS">RESOLVED. History of rectal cancer GERD (gastroesophageal reflux disease) Peptic ulcer 05/2022 Chronic pain syndrome Sinus tachycardia PT UNSURE ABOUT THIS Transaminitis ST elevation (STEMI) myocardial infarction 2020 Statin myopathy Peripheral neuropathy BPH with obstruction/lower urinary tract symptoms Obstructive sleep apnea DOES NOT USE DEVICE, HAD TROUBLE WEARING IT Surgical History History of lumbar fusion Hx of fusion of cervical spine ROM "IS LIMITED, CANNOT LOOK OVER SHOULDERS" History of cardiac cath 2020, [facility]; F/U DR. FANG, [facility] S/P drug eluting coronary stent placement 2020, [facility], X1 STENT S/P PTCA (percutaneous transluminal coronary angioplasty) 2020, [facility] H/O inguinal hernia repair Previous back surgery S/P tonsillectomy and adenoidectomy S/P cervical spinal fusion H/O resection of rectum WITH OSTOMY CREATION Family History Father Cardiovascular disease Cardiac disorder Prostate cancer Mother Dementia Diabetes Other Hypertension No significant family history Denies family history of Ovarian cancer Myocardial infarction Breast cancer Colorectal cancer Social History Smoking Status: Former smoker Tobacco Type: Cigarettes Age Started Using Tobacco: 17; Age Quit Using Tobacco: 24; packs per day: 1; Cigarettes Per Day: 20; Second Hand Exposure: No; Do You Dip or Chew Tobacco: Yes (1 CAN/10 DAYS; ADVISED); Hx Alcohol Use: No Hx Substance Use: No Preferred Language: Serbian Communication Ability: Effective Visual Impairment: No Limitations Hearing Ability: Normal 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 Beliefs That Will Affect Care: None marital status: Current Living Situation: Spouse current occupational status: retired How many Children do You have: 4 Feels Safe at Home: Yes Childhood Exposure to Second-Hand Smoke: No Diet: regular Diet Comment: regular caffeine: Yes during the past year weight has: remained stable Dental Care, Regularly: No Physical Activity Frequency: Daily Seatbelt Use: always Sunscreen Use: No Assistive Devices: Denture - Upper, Denture - Lower and Glasses Allergies Allergies Allergy/AdvReac Type Severity Reaction Status Date / Time rosuvastatin AdvReac Severe Myalgia Verified 10/20/23 09:35 Home Meds Home Medications Medication Instructions Recorded Confirmed naloxone 4 mg/actuation nasal spray 1 spray intranasal Q3M PRN OVER 12/19/20 12/09/23 SEDATION multivitamin 1 tab PO QAM 04/19/21 12/09/23 atorvastatin 40 mg tablet 40 mg PO QAM 12/09/23 12/09/23 baclofen 20 mg tablet 20 mg PO Q12 muscle spasm 12/09/23 12/09/23 dapagliflozin propanediol 5 mg 5 mg PO QAM 12/09/23 12/09/23 tablet (Farxiga) famotidine 20 mg tablet 20 mg PO BID 12/09/23 12/09/23 metoprolol succinate 25 mg 25 mg PO QAM 12/09/23 12/09/23 tablet,extended release 24 hr morphine 30 mg tablet,extended 30 mg PO QDL 12/09/23 12/09/23 release pantoprazole 40 mg tablet,delayed 40 mg PO BID 12/09/23 12/09/23 release Previous Rx's Medication Instructions Recorded aspirin 81 mg tablet,delayed 81 mg PO QAM #30 tabs 11/05/20 release tamsulosin 0.4 mg capsule 0.4 mg PO HS #90 caps 01/03/23 sodium chloride 1,000 mg soluble 1,000 mg PO QAM #90 tabs 03/02/23 tablet metformin 1,000 mg tablet 1,000 mg PO BID #180 tabs 08/24/23 gabapentin 600 mg tablet 300 mg (1/2 x 600 mg) PO QID #180 10/26/23 tabs oxycodone 5 mg tablet 5 mg PO TID PRN severe pain (scale 11/28/23 score 7-10) 30 days #60 tabs Results & Data (ED) Vital Signs Vital Signs - 24 hr 12/09/23 12:56 12/09/23 13:18 12/09/23 13:18 Temperature 36.5 C Temperature Source Oral Pulse Rate 97 H Pulse Rate [Apical] Pulse Rhythm Regular Pulse Strength Normal Respiratory Rate 20 Respiratory Effort / Characteristics Non-Labored Non-Labored Respiratory Depth Normal Respiratory Pattern Regular Regular Blood Pressure 116/71 Blood Pressure [Left Arm] Blood Pressure Mean 86 Blood Pressure Mean [Left Arm] Blood Pressure Position Lying Pulse Oximetry 94 96 Oxygen Delivery Method Room Air Room Air Room Air Sepsis Recent Fever Within 48 Hours No Sepsis New/Unexplained Change in Mental Status N/A Sepsis Action Taken by Nursing No Action Required 12/09/23 13:19 12/09/23 13:29 12/09/23 16:00 Temperature Temperature Source Pulse Rate 80 Pulse Rate [Apical] 58 L Pulse Rhythm Pulse Strength Respiratory Rate 15 Respiratory Effort / Characteristics Respiratory Depth Respiratory Pattern Blood Pressure Blood Pressure [Left Arm] 113/66 Blood Pressure Mean Blood Pressure Mean [Left Arm] 81 Blood Pressure Position Pulse Oximetry 98 96 Oxygen Delivery Method Room Air Sepsis Recent Fever Within 48 Hours Sepsis New/Unexplained Change in Mental Status Sepsis Action Taken by Nursing 12/09/23 17:17 Temperature Temperature Source Pulse Rate 58 L Pulse Rate [Apical] Pulse Rhythm Pulse Strength Respiratory Rate Respiratory Effort / Characteristics Respiratory Depth Respiratory Pattern Blood Pressure Blood Pressure [Left Arm] Blood Pressure Mean Blood Pressure Mean [Left Arm] Blood Pressure Position Pulse Oximetry Oxygen Delivery Method Sepsis Recent Fever Within 48 Hours Sepsis New/Unexplained Change in Mental Status Sepsis Action Taken by [facility] Medications Current Medication List: was personally reviewed by me Laboratory Data Attestation: I reviewed the patient's lab results. 12/09/23 13:20 12/09/23 13:20 Lab Results 12/09/23 12/09/23 Range/Units 13:20 14:18 WBC 6.26 (4.8-10.8) K/ul RBC 5.60 (4.70-6.10) M/uL Hgb 12.6 L (14.0-18.0) g/dl Hct 42.4 (42.0-52.0) % MCV 75.7 L (80.0-100.0) fL MCH 22.5 L (25.0-34.0) pg MCHC 29.7 L (32.0-36.0) g/dL RDW Std Deviation 43.6 (36.4-46.3) fL RDW Coeff of Arturo 16.1 H (11.5-14.5) % Plt Count 235 (130-400) K/uL MPV 10.2 (9.4-12.4) fL Immature Gran % (Auto) 0.5 % Neut % (Auto) 74.2 % Lymph % (Auto) 17.9 % [place] % (Auto) 6.1 % Eos % (Auto) 0.8 % Baso % (Auto) 0.5 % Neut # (Auto) 4.65 (1.40-6.50) K/uL Lymph # (Auto) 1.12 L (1.20-3.40) K/uL [place] # (Auto) 0.38 (0.11-0.59) K/uL Eos # (Auto) 0.05 (0.00-0.50) K/uL Baso # (Auto) 0.03 (0.00-0.20) K/uL Immature Gran # (Auto) 0.03 (0.01-0.20) K/uL PT 11.1 (9.0-12.0) Seconds INR 1.0 (0.9-1.1) VBG pH 7.26 L (7.36-7.41) VBG pCO2 52 H (38-50) mmHg VBG pO2 < 20 mmHg VBG HCO3 23 mmol/L VBG O2 Saturation < 60.0 % VBG Base Excess -4.1 mEq/L Sodium 135 L (136-145) mmol/L Potassium 4.0 (3.5-5.1) mmol/L Chloride 102 (98-107) mmol/L Carbon Dioxide 24 (21-32) mmol/L Anion Gap 9 (3-11) BUN 22 (6-23) mg/dl Creatinine 2.22 H (0.6-1.4) mg/dl Est Cr Clr Drug Dosing 31.1 ml/min Est GFR ( Amer) 32.6 ml/min Est GFR (Non-Af Amer) 28.1 ml/min BUN/Creatinine Ratio 9.9 L (10-20) Glucose 183 H (70-99(Fasting)) mg/dl Calcium 8.9 (8.6-10.3) mg/dl Magnesium 1.7 (1.7-2.4) mg/dl Total Bilirubin 0.7 (0.2-1.0) mg/dl AST 13 (13-39) U/L ALT 9 (7-52) U/L Alkaline Phosphatase 96 (34-104) U/L Troponin I High Sens 7.2 (0-20) pg/ml B-Natriuretic Peptide 15 (0-100) pg/ml Total Protein 7.5 (6.0-8.3) gm/dl Albumin 4.7 (3.4-5.0) gm/dl Globulin 2.8 (2.5-4.0) gm/dl Albumin/Globulin Ratio 1.7 (0.9-2) Adenovirus (PCR) Not Detected (NotDetected) B. pertussis DNA (PCR) Not Detected (NotDetected) B.parapertussis DNA PCR Not Detected (NotDetected) C. pneumoniae DNA (PCR) Not Detected (NotDetected) Coronavirus OC43 (PCR) Not Detected (NotDetected) Coronavirus HKU1 (PCR) Not Detected (NotDetected) Coronavirus 229E (PCR) Not Detected (NotDetected) SARS-CoV-2 (PCR) Not Detected (NotDetected) Coronavirus NL63 (PCR) Not Detected (NotDetected) Human Metapneumovir PCR Not Detected (NotDetected) Influenza Type A (PCR) Not Detected (NotDetected) Influenza Type B (PCR) Not Detected (NotDetected) M. pneumoniae (PCR) Not Detected (NotDetected) Parainfluenza 1 (PCR) Not Detected (NotDetected) Parainfluenza 2 (PCR) Not Detected (NotDetected) Parainfluenza 3 (PCR) Not Detected (NotDetected) Parainfluenza 4 (PCR) Not Detected (NotDetected) RSV (PCR) Not Detected (NotDetected) Entero/Rhino (PCR) Not Detected (NotDetected) Administered Medications Discontinued Medications Acetaminophen (Acetaminophen 500 Mg Tab) 500 mg PO NOW STA Stop: 12/09/23 14:02 Last Admin: 12/09/23 14:10 Dose: 500 mg Documented By: SABINA Sodium Chloride (Nss) 1,000 mls @ 999 mls/hr IV .Q1H1M ONE Stop: 12/09/23 15:01 Last Infusion: 12/09/23 15:15 Dose: Infused Documented By: Admin: 12/09/23 14:15 Dose: 999 mls/hr Documented By: SABINA Lactated Ringer's (Lr) 500 mls @ 999 mls/hr IV .Q31M ONE Stop: 12/09/23 18:05 Last Infusion: 12/09/23 18:19 Dose: Infused Documented By: Admin: 12/09/23 17:48 Dose: 999 mls/hr Documented By: NELSY Ondansetron HCl (Ondansetron Inj 2 Mg/Ml 2 Ml Vial) 4 mg IV NOW STA Stop: 12/09/23 14:02 Last Admin: 12/09/23 14:10 Dose: 4 mg Documented By: SABINA Imaging Data Radiologist's Impression: Chest X-Ray 12/09/23 13:26 SINGLE VIEW CHEST CLINICAL HISTORY: Dyspnea FINDINGS: 2 AP, portable, upright chest radiographs are compared to chest x-ray and chest CT dated 09/12/2023. The cardiomediastinal silhouette is unremarkable. Heart is mildly enlarged. The pulmonary vasculature is not congested. Emphysema and chronic interstitial thickening is similar to previous. Mild scarring/atelectasis is seen at the lung bases. Small pulmonary nodules seen by CT are not apparent on x-ray. No airspace consolidation or pleural effusion is identified. No pneumothorax is seen. The bony thorax is grossly intact. Fusion hardware is seen in the lower cervical spine. There is also fusion hardware at the thoracolumbar junction. IMPRESSION: Cardiomegaly and emphysema with no active disease in the chest. ACT 112: Negative or not required by law. Electronically signed by: Mateo Hernandez M.D. 12/09/2023 2:47 PM Discharge Plan Visit Data Chief Complaint: Shortness of Breath/Dyspnea Stated Complaint: SOB ED Provider: Ryan Rg Discharge Problem: LYUBOV (acute kidney injury), Weakness, Acute dehydration Discharge Instructions Interventions: ED Discharge Assessment Last Done: 12/09/23 20:13
[2023-12-09 14:02] LABS: Albumin Globulin Ratio 1.7 (0.9-2); Albumin Level 4.7 gm/dl (3.4-5.0); BUN Creatinine Ratio 9.9 (10-20); Bilirubin,Total 0.7 mg/dl (0.2-1.0); Calcium 8.9 mg/dl (8.6-10.3); Creatinine Clr Calc Pharmacy 31.1 ml/min; Est GFR (African American) 32.6 ml/min; Est GFR (Non-African American) 28.1 ml/min; Globulin 2.8 gm/dl (2.5-4.0); Magnesium 1.7 mg/dl (1.7-2.4); Prothrombin Time 11.1 Seconds (9.0-12.0); Total Protein 7.5 gm/dl (6.0-8.3)
[2023-12-09 14:07] LABS: Troponin I High Sensitivity 7.2 pg/ml (0-20)
[2023-12-09] MEDS: ACETAMINOPHEN 500 MG TAB PO STA (14:10)
[2023-12-09] MEDS: ONDANSETRON INJ 2 MG/ML 2 ML VIAL IV STA (14:10)
[2023-12-09] MEDS: SODIUM CHLORIDE 0.9% 1,000 ML IV ONE (14:15)
[2023-12-09 14:24] LABS: Base Excess VBG -4.1 mEq/L; HCO3 VBG 23 mmol/L; Oxygen Saturation VBG < 60.0 %; PCO2 VBG 52 mmHg (38-50); PO2 VBG < 20 mmHg; pH VBG 7.26 (7.36-7.41)
[2023-12-09 14:36] LABS: Adenovirus PCR Not Detected (NotDetected); Bordetella parapertussis PCR Not Detected (NotDetected); Bordetella pertussis PCR Not Detected (NotDetected); Chlamydia pneumoniae PCR Not Detected (NotDetected); Coronavirus 229E PCR Not Detected (NotDetected); Coronavirus CoV-2 (COVID19)PCR Not Detected (NotDetected); Coronavirus HKU1 PCR Not Detected (NotDetected); Coronavirus NL63 PCR Not Detected (NotDetected); Coronavirus OC43PCR Not Detected (NotDetected); Human Metapneumovirus PCR Not Detected (NotDetected); Influenza A PCR Not Detected (NotDetected); Influenza B PCR Not Detected (NotDetected); Mycoplasma pneumoniae PCR Not Detected (NotDetected); Parainfluenza Virus 1 PCR Not Detected (NotDetected); Parainfluenza Virus 2 PCR Not Detected (NotDetected); Parainfluenza Virus 3 PCR Not Detected (NotDetected); Parainfluenza Virus 4 PCR Not Detected (NotDetected); Respiratory Syncytial VirusPCR Not Detected (NotDetected); Rhinovirus/Enterovirus PCR Not Detected (NotDetected)
--- NOTE | 2023-12-09 14:49 | XRay Report ---
SINGLE VIEW CHEST CLINICAL HISTORY: Dyspnea FINDINGS: 2 AP, portable, upright chest radiographs are compared to chest x-ray and chest CT dated 09/12/2023. The cardiomediastinal silhouette is unremarkable. Heart is mildly enlarged. The pulmonary vas culature is not congested. Emphysema and chronic interstitial thickening is similar to previous. Mild scarring/atelectasis is seen at the lung bases. Small pulmonary nodules seen by CT are not apparent on x-ray. No airspace consolidation or pleural effusion is identified. No pneumothorax is seen. The b bobby thorax is grossly intact. Fusion hardware is seen in the lower cervical spine. There is also fusi on hardware at the thoracolumbar junction. IMPRESSION: Cardiomegaly and emphysema with no active disease in the chest. ACT 112: Negative or not required by law. Electronically signed by: Mateo Hernandez M.D. 12/09/2023 2:47 PM
--- NOTE | 2023-12-09 15:28 | History & Physical Report ---
Date of Service December 09, 2023 Assessment & Plan (1) Respiratory acidosis with metabolic acidosis: Plan: - primary respiratory acidosis with secondary underlying metabolic acidosis - likely secondary to splinted breathing and increased ostomy output - reviewed VBG on admission pH 7.26, CO2 52, HCO3 23 - reviewed BMP, Anion gap and chloride WNL - reviewed CXR showed cardiomegaly with emphysema - continue home pain control, additional morphine Q12 for breakthrough pain and lidocaine patch added - stool PCR and c diff pending - if negative can order Imodium - CPAP per protocol with trended VBGs 2 hours after cpap started Q4H x3 (2) LYUBOV (acute kidney injury): Plan: - Cr 2.22 (b/l ~1.2), BUN 9.9 on admission - likely secondary to dehydration - post void bladder scan 361 mL - LR 500 mL bolus on admission; gentle IV fluid resuscitation with LR overnight - avoid nephrotoxic agents - trend BMP (3) DM2 (diabetes mellitus, type 2): Plan: - on Metformin and Farxiga at home, held - Most recent A1C 7.6 - SSI with target BSG range 110-140mg/dL, CF 50, carb ratio 15 - T2DM diet - BSG ACHS - Adjust regimen as needed (4) Hyponatremia: Plan: - chronic; likely secondary to increased ostomy output - Na+ 135 on admission - takes sodium chloride 1000 mg daily at home - daily BMP (5) Anemia: Plan: - chronic; Hgb appears baseline - microcytic hypochromic anemia on admission CBC - iron panel, folate, B12 with AM labs - trend CBC (6) Chronic, continuous use of opioids: Plan: - chronic back pain, hx of multiple spinal surgeries - managed by PCP and pain clinic - continue home morphine and oxycodone - with pain contributing to respiratory acidosis, additional morphine Q12 for breakthrough pain, and lidocaine patch ordered Plan VTE ppx: scds Diet: T2DM Code status: Full code Dispo: med surg/tele Chronic stable diagnoses: GERD - continue home famotidine HTN - continue home metoprolol HLD and CAD - continue home statin and baby aspirin BPH - continue home tamsulosin and vibegron Anxiety - hold hydroxyzine Admission and Anticipated Discharge Date Admission Date: 12/09/23 History of Present Illness Chief Complaint: Dyspnea Primary Care Provider: Loy Browning, III, [employer] Patient is a 73-year-old male with past medical history of hypertension, hyperlipidemia, CAD, GERD, anemia, DM type II, BPH, anxiety, chronic opioid use, colostomy due to rectal cancer, and STEMI in 2020. patient asses at bedisde with his . He presents today fatigue and increased colostomy output for the past week. He stated that he is started hydroxyzine at bedtime about a week ago; He has since stopped taking it yesterday. He also has had difficulty taking a full breath due to chronic back pain in which he takes opioids for and has had multiple spinal surgeries; although he denies feeling short of breath. He has been dizzy when going from sitting to standing for the past week and has had a decreased appetite. He stated that he feels he has been well hydrated the past week. Patient denies fever, chills, headache, cough, sputum production, dyspnea, dyspnea on exertion, chest pain, abdominal pain, nausea, vomiting, edema, numbness, tingling. He was a former smoker quitting 40 years ago. He currently chews. He does not drink alcohol. He took all of his home medications this morning. He does not use oxygen, CPAP, or BiPap at home. He wishes to be full code at this time. He denies history of CVA, VTE, COPD, Asthma, and iron deficiency anemia. Patient's and daughter would like updates throughout hospitalization. Allergies Allergy/AdvReac Type Severity Reaction Status Date / Time rosuvastatin AdvReac Severe Myalgia Verified 10/20/23 09:35 Home Medications Medication Instructions Recorded Confirmed Type aspirin 81 mg tablet,delayed 81 mg PO QAM #30 tabs 11/05/20 12/09/23 Rx release naloxone 4 mg/actuation nasal spray 1 spray intranasal Q3M PRN OVER 12/19/20 12/09/23 History SEDATION multivitamin 1 tab PO QAM 04/19/21 12/09/23 History tamsulosin 0.4 mg capsule 0.4 mg PO HS #90 caps 01/03/23 12/09/23 Rx sodium chloride 1,000 mg soluble 1,000 mg PO QAM #90 tabs 03/02/23 12/09/23 Rx tablet metformin 1,000 mg tablet 1,000 mg PO BID #180 tabs 08/24/23 12/09/23 Rx gabapentin 600 mg tablet 300 mg (1/2 x 600 mg) PO QID #180 10/26/23 12/09/23 Rx tabs oxycodone 5 mg tablet 5 mg PO TID PRN severe pain (scale 11/28/23 12/09/23 Rx score 7-10) 30 days #60 tabs atorvastatin 40 mg tablet 40 mg PO QAM 12/09/23 12/09/23 History baclofen 20 mg tablet 20 mg PO Q12 muscle spasm 12/09/23 12/09/23 History dapagliflozin propanediol 5 mg 5 mg PO QAM 12/09/23 12/09/23 History tablet (Farxiga) famotidine 20 mg tablet 20 mg PO BID 12/09/23 12/09/23 History metoprolol succinate 25 mg 25 mg PO QAM 12/09/23 12/09/23 History tablet,extended release 24 hr morphine 30 mg tablet,extended 30 mg PO QDL 12/09/23 12/09/23 History release pantoprazole 40 mg tablet,delayed 40 mg PO BID 12/09/23 12/09/23 History release Past Med/Surg History Problem List (Updated 12/09/23 @ 20:31 by Ryan Rg MD) Acute dehydration (Acute) Weakness (Acute) LYUBOV (acute kidney injury) (Acute) Respiratory acidosis with metabolic acidosis LYUBOV (acute kidney injury) BPH NOS w ur obs/LUTS Anxiety disorder (Chronic) Hypertension Osteoarthritis (Chronic) DM2 (diabetes mellitus, type 2) Multiple pulmonary nodules (Chronic) Chronic lumbar pain (Chronic) CAD (coronary artery disease), [place] coronary artery Polypharmacy Prostate cancer screening encounter, options and risks discussed Nocturia Postlaminectomy syndrome of lumbosacral region Cervical fusion syndrome Thumb pain Arthritis of carpometacarpal (CMC) joint of left thumb Syncope and collapse (Acute) Hyponatremia Normocytic normochromic anemia Hyperlipidemia Anemia (Acute) Chronic, continuous use of opioids Medical History H/O malignant neoplasm of rectum Former smoker Smokeless tobacco use Colostomy in place Pneumonia due to COVID-[address] History of COVID-19 EARLY 04/2022, TESTED AT [facility], ADMITTED FOR 2 DAYS W/COVID PNEUMONIA; "FELT LIKE CRAP FOR 3 WEEKS">RESOLVED. History of rectal cancer GERD (gastroesophageal reflux disease) Peptic ulcer 05/2022 Chronic pain syndrome Sinus tachycardia PT UNSURE ABOUT THIS Transaminitis ST elevation (STEMI) myocardial infarction 2020 Statin myopathy Peripheral neuropathy BPH with obstruction/lower urinary tract symptoms Obstructive sleep apnea DOES NOT USE DEVICE, HAD TROUBLE WEARING IT Surgical History History of lumbar fusion Hx of fusion of cervical spine ROM "IS LIMITED, CANNOT LOOK OVER SHOULDERS" History of cardiac cath 2020, [facility]; F/U DR. FANG, [facility] S/P drug eluting coronary stent placement 2020, [facility], X1 STENT S/P PTCA (percutaneous transluminal coronary angioplasty) 2020, [facility] H/O inguinal hernia repair Previous back surgery S/P tonsillectomy and adenoidectomy S/P cervical spinal fusion H/O resection of rectum WITH OSTOMY CREATION Family History Father Cardiovascular disease Cardiac disorder Prostate cancer Mother Dementia Diabetes Other Hypertension No significant family history Denies family history of Ovarian cancer Myocardial infarction Breast cancer Colorectal cancer Social History Smoking Status: Former smoker Tobacco Type: Cigarettes Age Started Using Tobacco: 17; Age Quit Using Tobacco: 24; packs per day: 1; Cigarettes Per Day: 20; Second Hand Exposure: No; Do You Dip or Chew Tobacco: Yes (1 CAN/10 DAYS; ADVISED); Hx Alcohol Use: No Hx Substance Use: No Preferred Language: [place] Communication Ability: Effective Visual Impairment: No Limitations Hearing Ability: Normal Chemist Inorganic Required: No Beliefs That Will Affect Care: None marital status: Current Living Situation: Spouse current occupational status: retired How many Children do You have: 4 Feels Safe at Home: Yes Childhood Exposure to Second-Hand Smoke: No Diet: regular Diet Comment: regular caffeine: Yes during the past year weight has: remained stable Dental Care, Regularly: No Physical Activity Frequency: Daily Seatbelt Use: always Sunscreen Use: No Assistive Devices: Denture - Upper, Denture - Lower and Glasses Review of Systems Review of Systems: see HPI Physical Exam Physical Exam: The patient is awake, alert and oriented 3, well developed and well nourished, normocephalic and atraumatic, in no acute distress. Non-toxic appearing. HEENT- EOMI, mucous membranes moist. Hearing grossly intact. Heart-normal S1 and S2. No murmurs, rubs or gallops. Lungs-clear bilaterally, no respiratory distress, no accessory muscle use. O2 98 on RA. Abdomen-normal bowel sounds and soft. No ascites noted. Non-tender. Extremities- no clubbing, cyanosis, or edema. Rheumatologic-normal range of motion. Lumbar tenderness to palpation, chronic. Psychiatric-normal affect. Results & Data Results & Data Vital Signs (Past 12 Hours) Vital Signs Temp Pulse Resp BP Pulse Ox O2 Del Method 12/09/23 13:29 98 Room Air 12/09/23 13:19 80 12/09/23 13:18 96 Room Air 12/09/23 13:18 Room Air 12/09/23 12:56 36.5 C 97 H 20 116/71 94 Room Air Code Status & VTE Plan Code Status Full code VTE Prophylaxis Plan VTE Prophylaxis will be ordered: Yes Supervising Physician Co-Signing Physician Notes Patient seen and examined, chart reviewed, case discussed with Concha Hernández PA-C and I agree with the assessment and plan as above except as otherwise noted Labs and images reviewed Mr. Borrego presents with fatigue x1 week. Has had increased ostomy output and losses and depressive D without focal symptoms. No fever/chills, no leukocytosis. VBG 7.26, 52, HCO3 23. CXR BNP wnl. Trop wnl. Biofire negative. CXR: Cardiomegaly and emphasema, no acute findings Cr 2.22, baseline ~1.4. VBG is consistent with a primary respiratory acidosis with secondary underlying metabolic acidosis. Given pain suspect patient is having splinted breathing with decreased tidal volumes combined with increased losses due to his ostomy output. Agree with holding visteril. While patient's narcotic pain control helps with his chronic back pain and his breathing this is also likely to sedate him overnight and resultant decreased respiratory drive. Recommend continuing home medication with breakthrough, but adding CPAP and VBG trended every 4 hours. He has not had any acute change in his chronic back pain. For his increased ostomy output stool PCR is pending, IV FM added. C. difficile added. If negative can add symptomatic treatment with Imodium at that time. Seen at the bedside for reevaluation in the evening. Is having difficulty tolerating the BiPAP and reported makes him feel anxious and is very uncomfortable. He reports he breathes very shallow and is supposed use of BiPAP at home, but has not in many years. Last VBG's with respiratory acidosis, and then review patient with very low minute ventilation. Repeat VBG pending. Reviewed risk/benefits of a small dose of Ativan to help him relax noting that this could also suppress breathing, patient would like to try a small dose to tolerate the BiPAP. If patient's pH normalizes then he may be off the BiPAP, if pH remains less than 7.2 and will need to continue NIV. agree with above PG Care Time/CCT Total # of Minutes Spent Total Time Spent with Patient: Total time spent is greater than 50% in coordination of care (as documented) at patient's floor/unit and/or counseling patient: Coding Level of Care Code None Diagnoses Respiratory acidosis with metabolic acidosis E87.4 LYUBOV (acute kidney injury) N17.9 Type 2 diabetes mellitus with diabetic cataract, without long-term current use of insulin E11.36 Diabetes mellitus complication detail: with cataract Diabetes mellitus complication status: with ophthalmic complications Diabetes mellitus terminal gauger insulin use: without longterm use Hyponatremia E87.1 Anemia D64.9 Anemia type: unspecified type Chronic, continuous use of opioids F11.90 (3) DM2 (diabetes mellitus, type 2) Diabetes mellitus complication detail: with cataract Diabetes mellitus complication status: with ophthalmic complications Diabetes mellitus terminal gauger insulin use: without terminal gauger use Qualified Code(s): E11.36 - Type 2 diabetes mellitus with diabetic cataract (5) Anemia Anemia type: unspecified type Qualified Code(s): D64.9 - Anemia, unspecified
[2023-12-09] MEDS: LACTATED RINGER'S 500 ML IV ONE (17:48)
[2023-12-09] MEDS ORDERED: GLUCOSE 10 TAB/TUBE PO PRN (20:12)
[2023-12-09] MEDS ORDERED: oxyCODONE HCL IR 5 MG TAB (IMMEDIATE RELEASE) PO PRN (20:12)
[2023-12-09] MEDS ORDERED: MoRPHine SULFATE IR 15 MG TAB (IMMEDIATE RELEASE) PO PRN (20:12)
[2023-12-09] MEDS ORDERED: GLUCOSE 40% GEL 15 GM TUBE PO PRN (20:12)
[2023-12-09] MEDS ORDERED: DEXTROSE 50% 50 ML SYRINGE IV PRN (20:12)
[2023-12-09] MEDS ORDERED: GLUCAGON FOR INJ 1 MG VIAL SQ PRN (20:12)
[2023-12-09] MEDS ORDERED: CARBOHYDRATES FOR HYPOGLYCEMIA PO PRN (20:12)
[2023-12-09 20:37] LABS: Base Excess VBG -0.9 mEq/L; HCO3 VBG 26 mmol/L; Oxygen Saturation VBG < 60.0 %; PCO2 VBG 50 mmHg (38-50); PO2 VBG 20 mmHg; pH VBG 7.32 (7.36-7.41)
[2023-12-09] MEDS: LORazepam 2 MG/1 ML VIAL IV STA (20:48)
[2023-12-09] MEDS: NALOXONE HCL 0.4 MG/1 ML VIAL/CARP IV PRN (22:09)
[2023-12-09] MEDS: FAMOTIDINE 20 MG TAB PO SCH (22:13)
[2023-12-09] MEDS: PANTOprazole 40 MG TAB PO SCH (22:13)
[2023-12-09] MEDS: GABAPENTIN 300 MG CAP PO SCH (22:13)
[2023-12-09 22:14] LABS: Appearance Urine Clear (Clear); Bilirubin Urine Negative (Negative); Blood Urine Negative (Negative); Color Urine Yellow; Glucose Urine UA 3+ (Negative); Ketones Urine Negative (Negative); Leukocyte Esterase Urine Negative (Negative); Nitrite Urine Negative (Negative); Protein Urine Negative (Negative); Specific Gravity Urine 1.012 (1.000-1.030); Urobilinogen Urine Negative (Negative); pH Urine 5.5 (4.5-7.5)
[2023-12-09] MEDS: TAMSULOSIN HCL 0.4 MG CAP PO SCH (22:14)
[2023-12-09] MEDS: INSULIN ASPART PER UNIT CHARGE SC SCH (22:26)
[2023-12-09] MEDS: LACTATED RINGER'S 1,000 ML IV SCH (23:57)
[2023-12-10] MEDS: LIDOCAINE 5% 1 PATCH TD SCH ×2 (00:05→09:55)
[2023-12-10] MEDS: LANTUS PER UNIT CHARGE SQ SCH (00:25)
[2023-12-10] MEDS: BACLOFEN 20 MG TAB PO SCH (00:26)
[2023-12-10 01:06] LABS: Base Excess ABG -1.9 mEq/L (-9-1.8); HCO3 ABG 24 mmol/L (19-24); Oxygen Saturation ABG 99.5 % (90-95); PCO2 ABG 46 mmHg (35-46); PO2 ABG 364 mmHg (80-95); pH ABG 7.33 (7.35-7.45)
[2023-12-10 01:12] LABS: Allen Test Pos (Pos)
[2023-12-10 05:14] LABS: Base Excess VBG -1.2 mEq/L; HCO3 VBG 26 mmol/L; Oxygen Saturation VBG < 60.0 %; PCO2 VBG 51 mmHg (38-50); PO2 VBG 27 mmHg; pH VBG 7.31 (7.36-7.41)
[2023-12-10 05:25] LABS: Hematocrit (blood only) 34.9 % (42.0-52.0); Hemoglobin 10.5 g/dl (14.0-18.0); Mean Corpuscular Hemoglobin 22.6 pg (25.0-34.0); Mean Corpuscular Hgb Conc 30.1 g/dL (32.0-36.0); Mean Corpuscular Volume 75.1 fL (80.0-100.0); Mean Platelet Volume 10.2 fL (9.4-12.4); Platelet Count 166 K/uL (130-400); RDW Standard Deviation 43.3 fL (36.4-46.3); Red Blood Count 4.65 M/uL (4.70-6.10); White Blood Count 4.21 K/ul (4.8-10.8)
[2023-12-10 05:40] LABS: BUN Creatinine Ratio 11.4 (10-20); Calcium 8.4 mg/dl (8.6-10.3); Creatinine Clr Calc Pharmacy 52.3 ml/min; Est GFR (African American) 61.2 ml/min; Est GFR (Non-African American) 52.8 ml/min; Potassium 4.3 mmol/L (3.5-5.1)
[2023-12-10 05:58] LABS: Ferritin 5.7 ng/ml (8-388)
[2023-12-10 06:04] LABS: Folate (Folic Acid),Ser orPlas 10.42 ng/ml (>5.38)
[2023-12-10 07:50] VITALS: TEMP 97.9
[2023-12-10] MEDS: SODIUM CHLORIDE 1 GM TABLET PO SCH (08:48)
[2023-12-10] MEDS: GABAPENTIN 300 MG CAP PO SCH (08:48)
[2023-12-10] MEDS: ATORVASTATIN 40 MG TAB PO SCH (08:49)
[2023-12-10] MEDS: METOPROLOL SUCC 25MG EXT REL TAB PO SCH (08:49)
--- NOTE | 2023-12-10 09:27 | Hospitalist Progress Note ---
Date of Service December 10, 2023 Assessment & Plan (1) Respiratory acidosis with metabolic acidosis: Plan: resolved primary respiratory acidosis with secondary underlying metabolic acidosis - likely secondary to splinted breathing and increased ostomy output - reviewed trended VBG's and ABG respiratory acidosis improved with bipap - reviewed BMP, Anion gap and chloride WNL - reviewed CXR and admission, cardiomegaly with emphysema - Home pain control reduced with sleep apnea and hypoxia 12/08 - stool PCR and c diff pending - if negative can order Imodium (2) LYUBOV (acute kidney injury): Plan: improved; reviewed BMP, Cr baseline likely secondary to dehydration with increased ostomy output - LR bolus on admission; gentle fluid resuscitation overnight 12/08-12/09 - avoid nephrotoxic agents - morphine dose cut in half - gabapentin dose renally dosed, cut in half - continue to trend BMP (3) Sleep apnea: Plan: - recurrent episodes of apnea with desaturation when sleeping - potential narcosis induced vs neurologic central apnea - Narcan given 12/08 - home morphine dose cut in half, prn narcotics held - overnight nocturnal pulse oximetry ordered (4) Hyponatremia: Plan: chronic; likely secondary to increased ostomy output resolved; reviewed BMP - Na+ WNL - continue home sodium chloride tablet - continue to trend daily BMP (5) Anemia: Plan: chronic; Hgb appears baseline microcytic hypochromic anemia on admission CBC - folate reviewed - WNL - iron panel reviewed - low iron and ferritin; will begin iron supplement - B12 reviewed - low; will begin B12 supplement - continue to trend CBC - recommend follow up with PCP upon discharge for anemia management (6) Chronic, continuous use of opioids: Plan: chronic back pain, hx of multiple spinal surgeries - managed by PCP and pain clinic - home morphine dose cut in half; prn narcotics held due to possible narcotic induced sleep apnea (7) DM2 (diabetes mellitus, type 2): Plan: - on Metformin and Farxiga at home, held - Most recent A1C 7.6 - SSI with target BSG range 110-140mg/dL, CF 50, carb ratio 15 - T2DM diet - BSG ACHS - Adjust regimen as needed Plan VTE ppx: scds Diet: T2DM Code status: Full code Dispo: PCU/tele Chronic stable diagnoses: GERD - continue home famotidine HTN - continue home metoprolol HLD and CAD - continue home statin and baby aspirin BPH - continue home tamsulosin and vibegron Anxiety - discontinue home hydroxyzine Admission and Anticipated Discharge Date Admission Date: December 09, 2023 Subjective Patient seen at bedside. He is doing well and would like to go home. He denies dyspnea, dizziness, chest pain. Tele: Sinus rhythm with occasional PACs and PVCs, rate 50-70. Review of Systems Review of Systems: see HPI Physical Exam Physical Exam: The patient is awake, alert and oriented 3, well developed and well nourished, normocephalic and atraumatic, in no acute distress. Non-toxic appearing. HEENT- EOMI, mucous membranes moist. Hearing grossly intact. Heart-normal S1 and S2. No murmurs, rubs or gallops. Lungs-clear bilaterally, no respiratory distress, no accessory muscle use. O2 97 on RA. Abdomen-normal bowel sounds and soft. No ascites noted. Non-tender. Extremities- no clubbing, cyanosis, or edema. Rheumatologic-normal range of motion. Lumbar tenderness to palpation, chronic. Psychiatric-normal affect. Results & Data Results & Data Vital Signs (Past 12 Hours) Vital Signs Temp Pulse Pulse Pulse Resp BP Pulse Ox 12/10/23 07:48 36.6 C 66 15 131/77 97 12/10/23 07:15 61 12/10/23 03:12 55 L 16 100 12/10/23 03:09 36.9 C 56 L 19 138/79 100 12/09/23 23:15 12/09/23 23:12 36.3 C L 62 16 171/95 H 100 12/09/23 23:10 58 L 12/09/23 23:07 68 15 100 12/09/23 23:03 35.7 C L 63 16 195/100 H 99 12/09/23 22:41 56 L 14 141/83 H 100 12/09/23 22:29 57 L 12 100 12/09/23 21:15 64 L 12/09/23 21:00 66 12 178/99 H 98 O2 Del Method FiO2 12/10/23 07:48 Room Air 12/10/23 07:15 12/10/23 03:12 30 12/10/23 03:09 BiPAP 12/09/23 23:15 BiPAP 12/09/23 23:12 BiPAP 100 12/09/23 23:10 12/09/23 23:07 100 12/09/23 23:03 BiPAP 30 12/09/23 22:41 BiPAP 12/09/23 22:29 Room Air 12/09/23 21:15 BiPAP 12/09/23 21:00 BiPAP 100 PG Care Time/CCT Total # of Minutes Spent Total Time Spent with Patient: Total time spent is greater than 50% in coordination of care (as documented) at patient's floor/unit and/or counseling patient: Coding Level of Care Code None Diagnoses Respiratory acidosis with metabolic acidosis E87.4 LYUBOV (acute kidney injury) N17.9 Sleep apnea G47.30 Hyponatremia E87.1 Anemia D64.9 Anemia type: unspecified type Chronic, continuous use of opioids F11.90 Type 2 diabetes mellitus with diabetic cataract, without long-term current use of insulin E11.36 Diabetes mellitus complication detail: with cataract Diabetes mellitus complication status: with ophthalmic complications Diabetes mellitus termite treater helper insulin use: without termite treater helper use (5) Anemia Anemia type: unspecified type Qualified Code(s): D64.9 - Anemia, unspecified (7) DM2 (diabetes mellitus, type 2) Diabetes mellitus complication detail: with cataract Diabetes mellitus complication status: with ophthalmic complications Diabetes mellitus fpc insulin use: without termite treater helper use Qualified Code(s): E11.36 - Type 2 diabetes mellitus with diabetic cataract
[2023-12-10] MEDS: ASPIRIN 81 MG ECTAB PO SCH (10:43)
[2023-12-10] MEDS: CYANOCOBALAMIN (B-12) 500 MCG TABLET PO SCH (10:43)
[2023-12-10] MEDS: FERROUS SULFATE 325 MG TAB PO SCH (10:43)
[2023-12-10] MEDS ORDERED: MoRPHine SULFATE CR 15 MG TABCR PO SCH (11:30)
[2023-12-10] MEDS: MoRPHine SULFATE CR 15 MG TABCR PO SCH (11:57)
--- NOTE | 2023-12-10 13:12 | Discharge Summary ---
Discharge Summary Date of Service December 10, 2023 Principal Dx & Hospital Course #1 = Principal Diagnosis (1) Respiratory acidosis with metabolic acidosis: resolved primary respiratory acidosis with underlying metabolic acidosis from diarrhea/GI losses not allowing for proper metabolic compensatory alkalosis thus the low pH on admission - reviewed trended VBG's and ABG respiratory acidosis improved with bipap - reviewed BMP, Anion gap and chloride WNL - reviewed CXR on admission, cardiomegaly with emphysema - likely excessive toxic metabolites of long acting morphine and also gabapentin in setting of LYUBOV contributed to excessive sedation and hypoventilation--> Home pain control reduced/held opioids and gabapentin while here, hydrated with IVFs and renal function back to baseline--> can resume home morphine and gabapentin the day after discharge - stool PCR and c diff uncollected as patient had no output during hospitalization; increased output resolved (2) LYUBOV (acute kidney injury): resolved; reviewed BMP, Cr baseline likely secondary to dehydration with increased ostomy output - LR bolus on admission; gentle fluid resuscitation overnight 12/08-12/09 - avoid nephrotoxic agents - morphine dose cut in half - gabapentin dose renally dosed, cut in half - restart home morphine with close PCP follow up - restart home gabapentin dose with close PCP follow up (3) Sleep apnea: - recurrent episodes of apnea with desaturation when sleeping - potential narcosis induced in setting of LYUBOV as noted previously - Narcan given 12/08 - home morphine dose cut in half during admission and can resume after discharge as renal function normalized - recommend out patient sleep study to see if needs CPAP again (4) Hyponatremia: chronic; likely secondary to increased ostomy output resolved; reviewed BMP - Na+ WNL - continue home sodium chloride tablet (5) Anemia: chronic; Hgb appears baseline microcytic hypochromic anemia on admission CBC - folate reviewed - WNL - iron panel reviewed - low iron and ferritin; will begin iron supplement - B12 reviewed - low; will begin B12 supplement - recommend follow up with PCP upon discharge for anemia management (6) Chronic, continuous use of opioids: chronic back pain, hx of multiple spinal surgeries - managed by PCP and pain clinic - home morphine dose cut in half; prn narcotics held due to possible narcotic induced sleep apnea during hospitalization - resume home pain control on d/c with close PCP follow up (7) DM2 (diabetes mellitus, type 2): - on Metformin and Farxiga at home, held - Most recent A1C 7.6 - SSI with target BSG range 110-140mg/dL, CF 50, carb ratio 15 - T2DM diet - BSG ACHS - Adjust regimen as needed - resume home DM medication on discharge Plan Chronic stable diagnoses: GERD - continue home famotidine HTN - continue home metoprolol HLD and CAD - continue home statin and baby aspirin BPH - continue home tamsulosin and vibegron Anxiety - discontinue home hydroxyzine Tele: Sinus with occasional PACs and PVCs with no arrhythmia. Rate 50-70s VTE ppx: scds Diet: T2DM Code status: Full code Dispo: discharge home Notes For Next Care Provider Check BMP in 1 week Needs formal sleep study as outpatient Medication Changes From Visit see list below Admission HPI Per Admitting Provider Patient is a 73-year-old male with past medical history of hypertension, hyperlipidemia, CAD, GERD, anemia, DM type II, BPH, anxiety, chronic opioid use, colostomy due to rectal cancer, and STEMI in 2020. patient asses at [facility] with his . He presents today fatigue and increased colostomy output for the past week. He stated that he is started hydroxyzine at bedtime about a week ago; He has since stopped taking it yesterday. He also has had difficulty taking a full breath due to chronic back pain in which he takes opioids for and has had multiple spinal surgeries; although he denies feeling short of breath. He has been dizzy when going from sitting to standing for the past week and has had a decreased appetite. He stated that he feels he has been well hydrated the past week. Patient denies fever, chills, headache, cough, sputum production, dyspnea, dys pnea on exertion, chest pain, abdominal pain, nausea, vomiting, edema, numbness, tingling. He was a former smoker quitting 40 years ago. He currently chews. He does not drink alcohol. He took all of his home medications this morning. He does not use oxygen, CPAP, or BiPap at home. He wishes to be full code at this time. He denies history of CVA, VTE, COPD, Asthma, and iron deficiency anemia. Patient's and daughter would like updates throughout hospitalization. Admission Exam Per Admitting Provider The patient is awake, alert and oriented 3, well developed and well nourished, normocephalic and atraumatic, in no acute distress. Non-toxic appearing. HEENT- EOMI, mucous membranes moist. Hearing grossly intact. Heart-normal S1 and S2. No murmurs, rubs or gallops. Lungs-clear bilaterally, no respiratory distress, no accessory muscle use. O2 98 on RA. Abdomen-normal bowel sounds and soft. No ascites noted. Non-tender. Extremities- no clubbing, cyanosis, or edema. Rheumatologic-normal range of motion. Lumbar tenderness to palpation, chronic. Psychiatric-normal affect. Discharge Exam The patient is awake, alert and oriented 3, well developed and well nourished, normocephalic and atraumatic, in no acute distress. Non-toxic appearing. HEENT- EOMI, mucous membranes moist. Hearing grossly intact. Heart-normal S1 and S2. No murmurs, rubs or gallops. Lungs-clear bilaterally, no respiratory distress, no accessory muscle use. O2 97 on RA. Abdomen-normal bowel sounds and soft. No ascites noted. Non-tender. Extremities- no clubbing, cyanosis, or edema. Rheumatologic-normal range of motion. Lumbar tenderness to palpation, chronic. Psychiatric-normal affect. Discharge Plan Discharge Items Patient Disposition: Home - Self-Care Reason For Visit: resp. acidosis, lyubov Discharge Diagnosis: Respiratory acidosis from opioid medications and gabapentin in setting of dehydration/acute kidney injury Acute Kidney injury Vitamin B12 and iron deficiency Condition on Discharge: Good Activity: Resume your previous activity Non-emergency contact: Primary Care Provider Call non-emergency contact if: you have any medication questions, your symptoms worsen and your pain is not controlled Follow-up/Referrals: Loy Browning III, CRNP [Primary Care Provider] - (Follow up in 1-2 weeks with repeat BMP) Diet: Regular Addtl Attending Provider Instructions: You were hospitalized due to respiratory acidosis with metabolic acidosis due to your breathing patterns and increased ostomy output. Your oxygen levels were found to be low overnight likely due to increased pain medications. I recommend having an outpatient sleep study with your PCP. You were also found to have an acute kidney injury which resolved after you were given IV fluids. Morphine can contribute to this and we reduced your dose to 15 mg during hospitalization. You can increase this back to your regular dose tomorrow and I recommend close follow up with your PCP in 1-2 weeks. We also had to reduce your gabapentin dose from 4 times a day to 2 times daily due to your decreased kidney function. You can resume your home gabapentin dose upon discharge. I recommend to have a BMP (basic metabolic panel) done in 1-2 weeks with PCP follow up to assess your kidney function. Continue to stay well hydrated. Your iron and B12 levels were found to be low on admission. We started you on an iron and B12 supplement during hospitalization and I have sent a prescription to your pharmacy. Follow up with your PCP to discuss custodial anemia management. Pending Studies at Discharge: No Stand-Alone Forms: My [facility], Pain - Opioid Pain Management Medications and DC Order Prescriptions: New ferrous sulfate 325 mg (65 mg iron) Tablet,Delayed Release (Dr/Ec) 325 mg PO QAM Qty: 30 0RF cyanocobalamin (vitamin B-12) 500 mcg Tablet 500 mcg PO QAM Qty: 30 0RF Continued tamsulosin 0.4 mg capsule 0.4 mg PO HS Qty: 90 3RF sodium chloride 1,000 mg tablet,soluble 1,000 mg PO QAM Qty: 90 3RF metformin 1,000 mg tablet 1,000 mg PO BID Qty: 180 3RF gabapentin 600 mg tablet 300 mg PO QID Qty: 180 0RF Rx Instructions: 1/2 tablet dose oxycodone 5 mg tablet 5 mg PO TID PRN (Reason: severe pain (scale score 7-10)) 30 Days Qty: 60 0RF naloxone 4 mg/actuation spray,non-aerosol 1 spray intranasal Q3M PRN (Reason: OVER SEDATION) Patient Comments: HAS NEVER HAD TO USE Rx Instructions: spray 1 dose into ONE nostril; alternate nostrils w each dose until help arrives aspirin 81 mg Tablet,Delayed Release (Dr/Ec) 81 mg PO QAM Qty: 30 0RF Rx Instructions: OTC multivitamin Tablet 1 tab PO QAM metoprolol succinate 25 mg tablet extended release 24 hr 25 mg PO QAM Rx Instructions: TAKE 1 TABLET BY MOUTH EVERY DAY atorvastatin 40 mg tablet 40 mg PO QAM Rx Instructions: TAKE 1 TABLET BY MOUTH EVERY DAY IN THE MORNING pantoprazole 40 mg tablet,delayed release (DR/EC) 40 mg PO BID Rx Instructions: TAKE 1 TABLET BY MOUTH TWICE A DAY famotidine 20 mg tablet 20 mg PO BID Rx Instructions: TAKE 1 TABLET BY MOUTH TWICE A DAY baclofen 20 mg tablet 20 mg PO Q12 Rx Instructions: ordered prn but needs routine dosing...takes at 1200 and 2400 dapagliflozin propanediol [Farxiga] 5 mg tablet 5 mg PO QAM morphine 30 mg tablet extended release 30 mg PO QDL Discharge Orders: Discharge Order (Routine); Ordered 12/10/23 Ordered By: Concha Pimentel/Other Patient Handouts: Anemia Admission Data Admit Date/Time: 12/09/23 17:23 Attending Provider: Christa Lal Admit Provider: Arsalan Hinkle Primary Care Provider: Loy Browning III Other Providers: Arsalan Hinkle Hospital Stay Data Consultations 12/09/23 15:49 ED Decision to Admit Stat Diagnostic Imagining Performed Chest X-Ray 12/09/23 13:26 SINGLE VIEW CHEST CLINICAL HISTORY: Dyspnea FINDINGS: 2 AP, portable, upright chest radiographs are compared to chest x-ray and chest CT dated 09/12/2023. The cardiomediastinal silhouette is unremarkable. Heart is mildly enlarged. The pulmonary vasculature is not congested. Emphysema and chronic interstitial thickening is similar to previous. Mild scarring/atelectasis is seen at the lung bases. Small pulmonary nodules seen by CT are not apparent on x-ray. No airspace consolidation or pleural effusion is identified. No pneumothorax is seen. The bony thorax is grossly intact. Fusion hardware is seen in the lower cervical spine. There is also fusion hardware at the thoracolumbar junction. IMPRESSION: Cardiomegaly and emphysema with no active disease in the chest. ACT 112: Negative or not required by law. Electronically signed by: Mateo Hernandez M.D. 12/09/2023 2:47 PM Discharge Instructions Given to Patient (Per Discharging Provider) You were hospitalized due to respiratory acidosis with metabolic acidosis due to your breathing patterns and increased ostomy output. Your oxygen levels were found to be low overnight likely due to increased pain medications. I recommend having an outpatient sleep study with your PCP. You were also found to have an acute kidney injury which resolved after you were given IV fluids. Morphine can contribute to this and we reduced your dose to 15 mg during hospitalization. You can increase this back to your regular dose tomorrow and I recommend close follow up with your PCP in 1-2 weeks. We also had to reduce your gabapentin dose from 4 times a day to 2 times daily due to your decreased kidney function. You can resume your home gabapentin dose upon discharge. I recommend to have a BMP (basic metabolic panel) done in 1-2 weeks with PCP follow up to assess your kidney function. Continue to stay well hydrated. Your iron and B12 levels were found to be low on admission. We started you on an iron and B12 supplement during hospitalization and I have sent a prescription to your pharmacy. Follow up with your PCP to discuss custodial anemia management. Supervising Physician Co-Signing Physician Notes PA Supervision Note: I personally saw and examined the patient. I verified all carrion points and agree with RADHA Hernández with the following exceptions and/or additions: S-Pt doing very well, very awake and alert. Diarrhea resolved, tolerating po O- Vitals reviewed Gen: [AAOx3, NAD] HEENT: [anicteric sclerae, EOMI] CV: [RRR no mgr nl S1S2] Pulm: [CTAB no wcr] Abd: [+BS soft NT ND no masses or hernias, ostomy bag in place with solid stool] Ext: [no edema CBC, BMP, ABG, VBGs reviewed A/P-73 yo male here with SOB, hypercapnic respiratory failure secondary to toxic metabolites of morphine in setting of LYUBOV and also taking gabapentin contributed to primary respiratory acidosis. He had trouble compensating due to GI loss of HCO3. Held morphine and reduced dose of gabapentin while here. 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
[2023-12-10 15:48] VITALS: BP 151/77; PULSE 57; RESP 18; O2SAT 94
--- NOTE | 2023-12-10 16:20 | Billing Data ---
Date of Service December 10, 2023 Coding Level of Care Code 41952 INP/OBS DISCH >30 MIN
--- NOTE | 2023-12-10 16:36 | Electrocardiogram Report ---
Test Reason : Blood Pressure : */* mmHG Vent. Rate : 79 BPM Atrial Rate : 79 BPM P-R Int : 156 ms QRS Dur : 98 ms QT Int : 396 ms P-R-T Axes : 60 32 37 degrees QTcB Int : 454 ms Normal sinus rhythm Left atrial enlargement Inferior infarct (cited on or before 17-Apr-2022) Abnormal ECG When compared with ECG of 21-Sep-2023 14:37, (unconfirmed) Premature atrial complexes are no longer Present Confirmed by Liliam Saha ([id number]) on 12/10/2023 4:35:49 PM Referred By: REFERRED SELF Confirmed By: Liliam Saha
[2023-12-10 16:41] LABS: Adenovirus F 40/41 PCR Not Detected (NotDetected); Astrovirus PCR Not Detected (NotDetected); Campylobacter PCR Not Detected (NotDetected); Cryptosporidium PCR Not Detected (NotDetected); Cyclospora cayetanensis PCR Not Detected (NotDetected); Entamoeba histolytica PCR Not Detected (NotDetected); Enteroaggregative E.coli(EAEC) Not Detected (NotDetected); Enteropathogenic E.coli (EPEC) Not Detected (NotDetected); Enterotoxigenic E.coli (ETEC) Not Detected (NotDetected); Giardia lamblia PCR Not Detected (NotDetected); Norovirus GI/GII PCR Not Detected (NotDetected); Plesiomonas shigelloides PCR Not Detected (NotDetected); Rotavirus A PCR Not Detected (NotDetected); Salmonella PCR Not Detected (NotDetected); Sapovirus PCR Not Detected (NotDetected); Shiga-like Toxin E.coli (STEC) Not Detected (NotDetected); Shigella/Enteroinvasive E.coli Not Detected (NotDetected); Vibrio cholerae PCR Not Detected (NotDetected); Vibrio species PCR Not Detected (NotDetected); Yersinia enterocolitica PCR Not Detected (NotDetected)
== END 2023-12-10 16:27 | disposition home or self-care (01) | DRG 641 ==
LOC: SUATTDRO → ED 12:51 → EDINP 17:23 → SUATTDRO 17:23 → 2E 20:13